=== PATIENT | female | born 1985 | race Caucasian/White ===

== ENCOUNTER → 2017-10-31 | Outpatient (CLI) | payer OTHER ==
[2017-10-29 15:16] VITALS: BMI 25.9
[2017-10-31 14:25] VITALS: BP 108/83; PULSE 101; RESP 18
--- NOTE | 2017-10-31 14:56 | P.HPIM ---
History of Present Illness H&P Date: 10/31/17 Chief Complaint: severe chronic neck, back, shoulder, hip pain This is a 32-year-old patient referred by Dr. Early for chronic pain "all over", worst in neck, back, and several joints. Patient has been taking medications from primary care physician including Tylenol #3 medications with some relief. Patient is tearful in the office today in describing her pain. She states that she has been diagnosed with depression and fibromyalgia in the past. Patient denies adverse drug effects from medications. Patient also denies new-onset weakness, bowel/bladder incontinence, or any other signs or symptoms of cauda equina syndrome. There are no signs of acute intoxication, and no indications of medication diversion or overuse. Patient notes that pain worsens significantly with any kind of physical activity and improves with medication. Patient has used several types of medications for pain, including NSAIDS, OPIOIDS, TRAMADOL, ANTIDEPRESSANTS. Patient HAS NOT had surgery. Patient HAS had injections previously without any relief. Patient HAS NOT had physical therapy recently. Patient states that she sees a pain psychologist on a weekly basis. In addition to above, 13-point review of systems is also negative for chest pain , shortness of breath, changes in vision, changes in hearing, new onset weakness , abdominal pain, diarrhea, extreme fatigue, malaise, fever, skin changes, homicidal or suicidal ideation, or bowel or bladder incontinence. Vital Signs: Reviewed in EMR Gen: WDWN, AAOx3, in acute distress and crying HEENT: NCAT, EOMI, hearing grossly normal Pulm: resp unlabored Neck: supple, trachea midline Remainder of exam not performed, patient crying Past Medical History Past Medical History: Fibromyalgia, Seizure Disorder Additional Past Medical History / Comment(s): LAST SEIZURE 10/29/17, USUALLY HAS DAILY SEIZURES, CHRONIC NECK/BACK PAIN, N/T FINGERS AND TOES, RAYNAUDS SYN. MENIERE'S, IBS, MUSCLE WEAKNESS, USES WALKER OR W/C History of Any Multi-Drug Resistant Organisms: None Reported Past Surgical History: Bariatric Surgery, Cholecystectomy, Hysterectomy Additional Past Surgical History / Comment(s): EYE SX (MUSCLES) Past Anesthesia/Blood Transfusion Reactions: No Reported Reaction Past Psychological History: Anxiety Smoking Status: Current every day smoker Past Alcohol Use History: None Reported Additional Past Alcohol Use History / Comment(s): SMOKED FOR 10 YRS, THEN QUIT FOR 9 YRS, STARTED BACK SMOKING THIS PAST YEAR, SMOKES 1/2 PPD Past Drug Use History: None Reported - Past Family History Mother Family Medical History: Cancer Additional Family Medical History / Comment(s): TONGUE Medications and Allergies Home Medications Medication Instructions Recorded Confirmed Type DULoxetine HCL [Cymbalta] 60 mg PO BID 10/29/17 10/29/17 History Gabapentin 1,200 mg PO TID 10/29/17 History Linaclotide [Linzess] 290 mcg PO DAILY 10/29/17 10/29/17 History Metoclopramide [Reglan] 5 mg PO QID 10/29/17 10/29/17 History OXcarbazepine [Trileptal] 300 mg PO QID 10/29/17 10/29/17 History Ranitidine HCl [Zantac] 300 mg PO BID 10/29/17 10/29/17 History clonazePAM [KlonoPIN] 0.5 mg PO TID 10/29/17 10/29/17 History hydrOXYzine HCL [Atarax] 50 mg PO TID PRN 10/29/17 10/29/17 History Allergies Allergy/AdvReac Type Severity Reaction Status Date / Time levetiracetam [From [facility]] Allergy Rash/Hives Verified 10/29/17 14:58 Penicillins Allergy "STOPPED Verified 10/29/17 14:58 BREATHING" NSAIDS (Non-Steroidal AdvReac "MAY CAUSE Verified 10/29/17 14:58 Anti-Inflamma ULCERS R/T BARIATRIC SX" Physical Exam Vitals: Vital Signs Pulse Resp BP Pulse Ox 10/31/17 14:12 101 H 18 108/83 97 Results Comments: Computed tomography scan of the cervical spine demonstrates some reversal cervical lordosis that may be due to spasm. Scan is otherwise negative. Assessment and Plan (1) Major depression Current Visit: Yes Status: Acute Code(s): F32.9 - MAJOR DEPRESSIVE DISORDER , SINGLE EPISODE, UNSPECIFIED SNOMED Code(s): 677279435 (2) Fibromyalgia Current Visit: Yes Status: Acute Code(s): M79.7 - FIBROMYALGIA SNOMED Code (s): 761114108 (3) Chronic pain syndrome Current Visit: Yes Status: Acute Code(s): G89.4 - CHRONIC PAIN SYNDROME SNOMED Code(s): 765016179 Plan: Plan: 1. Explanation: Opioid and psychological risk scores were reviewed. Diagnoses , prognoses, and multiple treatment options including but not limited to physical therapy, interventional therapies, adjuvant medical therapies, narcotic medication therapies, and surgery were discussed with the patient and all questions were answered to the patient's satisfaction. 2. Opioid agreement: no opioids prescribed today 3. Counseling: The patient was counseled extensively on SMOKING CESSATION, BODY MASS INDEX, EXERCISE. Specifically, the patient was instructed regarding the importance of smoking cessation, weight control, and exercise in the context of both chronic pain and overall health. 4. Procedures: none for now 5. Consultations: none 6. Investigations: none 7. Medications: none prescribed 8. Morphine equivalents per day prescribed: zero 9. Disposition: I reviewed this patient's scans and the notes from Dr. Early. This patient appears to have some components of fibromyalgia, which actually worsens overall with opioid therapy. Given her young age and her obvious psychiatric comorbidities, I believe that she will not benefit substantially from this therapy. I recommended that she see a dedicated pain psychologist and psychiatrist for treatment of her depressive symptoms, as injections have also not substantially helped her in the past and I am very concerned for the prospect of opioid use disorder in the future given these psychiatric comorbidities. Patient will follow up in our clinic as needed. Time with Patient: Greater than 30
== END | disposition home or self-care (01) ==
LOC: PNWHC3 14:04
PROVIDERS: ATTEND Anesthesiology
DX: G89.4 Chronic pain syndrome (principal); M54.2 Cervicalgia; M79.7 Fibromyalgia; M54.9 Dorsalgia, unspecified; F32.9 Major depressive disorder, single episode, unspecified; G40.909 Epilepsy, unspecified, not intractable, without status epilepticus; I73.00 Raynaud's syndrome without gangrene; M62.81 Muscle weakness (generalized); F17.200 Nicotine dependence, unspecified, uncomplicated; K58.9 Irritable bowel syndrome, unspecified; F41.9 Anxiety disorder, unspecified; Z79.891 Long term (current) use of opiate analgesic; Z79.1 Long term (current) use of non-steroidal anti-inflammatories (NSAID); Z79.899 Other long term (current) drug therapy; Z90.49 Acquired absence of other specified parts of digestive tract; Z98.84 Bariatric surgery status; Z88.0 Allergy status to penicillin; Z88.8 Allergy status to other drugs, medicaments and biological substances
CPT/HCPCS: 99201

== ENCOUNTER 2017-12-25 14:52 | Inpatient (IN) | payer OTHER ==
[2017-12-25] MEDS ORDERED: LORazepam 2 MG/ML INJ IV PRN ×4 (19:32)
[2017-12-25 20:25] LABS: Anisocytosis Slight; Basophils % (A) 1 %; Eosinophils # (A) 0.1 k/uL (0-0.7); Eosinophils % (A) 1 %; HCT 36.5 % (34.0-46.0); HGB 11.2 gm/dL (11.4-16.0); Hypochromasia Slight; Lymphocytes # (A) 1.9 k/uL (1.0-4.8); Lymphocytes % (A) 29 %; MCH 24.5 pg (25.0-35.0); MCHC 30.6 g/dL (31.0-37.0); MCV 80.2 fL (80.0-100.0); Mean Platelet Volume 6.3; Microcytosis Slight; Monocytes # (A) 0.5 k/uL (0-1.0); Monocytes % (A) 7 %; Neutrophils % (A) 61 %; Platelet Count 459 k/uL (150-450); RBC 4.55 m/uL (3.80-5.40); RDW 17.2 % (11.5-15.5); WBC 6.5 k/uL (3.8-10.6)
[2017-12-25 20:35] LABS: Anion Gap 11 mmol/L; Blood Urea Nitrogen 5 mg/dL (7-17); Calcium 9.9 mg/dL (8.4-10.2); Carbon Dioxide 26 mmol/L (22-30); Chloride 104 mmol/L (98-107); Glucose 92 mg/dL (74-99); Magnesium 1.9 mg/dL (1.6-2.3); Potassium 4.3 mmol/L (3.5-5.1); Sodium 141 mmol/L (137-145)
[2017-12-25 20:42] VITALS: BP 115/67; PULSE 64; RESP 15; TEMP 97.9
[2017-12-25] MEDS ORDERED: DULoxetine HCL 60 MG CAPSULE.DR PO SCH (21:00)
[2017-12-25] MEDS ORDERED: busPIRone HCl 10 MG TAB PO SCH (21:00)
--- NOTE | 2017-12-25 21:32 | P.CNNES ---
History of Present Illness Consult date: 12/25/17 Reason for Consult: Patient transferred for aphasia and seizure disorder. History of Present Illness: This patient is a 32-year-old right-handed white female who apparently at 1 PM yesterday afternoon had a seizure-like event at home. History was obtained from the who was at bedside today and had witnessed the event yesterday. Since the seizure-like event the patient has been globally aphasic. The patient has never had this kind of episode previously. She has been evaluated at the local [facility] at least 3 times in the past 1 month for history of seizures. Apparently she has had a long-standing history of seizure disorder for over 10 years. She has been on multiple anticonvulsant medications. According to her she is currently taking Trileptal 300 mg 4 times a day, Vimpat 100 mg every morning, and Klonopin 0.5 mg 3 times a day as her primary anticonvulsant medications. She has been seen by multiple neurologists over the last several years. Her most current neurologist is Dr. Amari Ribera who they follow with closely at [facility]. According to the they were last seen there and it was felt she may require further evaluation at the [facility] in the neurology Department. They have been working on trying to get an appointment there for her to be seen. She has had multiple breakthrough seizures despite her current anticonvulsant medications. The states that the most recent addition to her anticonvulsant regimen has been the Vimpat which she is taking 100 mg daily currently. According to the the last tonic-clonic seizure occurred about a week ago. She has been having frequent breakthrough seizures. She was talking up until 1 PM yesterday and since that episode she has remained globally aphasic. She was taken to [facility] today and since she has undergone 3 recent CAT scans of the brain all of which are reported negative for any acute findings it was decided by the ER physician to avoid repeat radiation exposure. The patient and it was recommended she be transferred to [facility] for MRI study. Dr. Blanca Schafer was contacted this evening at 9 PM on 12/25/2017 for immediate urgent consult on this patient. According to nursing staff the patient has been globally aphasic since coming into the hospital here and he has not had any witnessed seizure activity. We have reviewed her history and at this time she would be best suited to be transferred to a tertiary center with an epilepsy monitoring unit available for her further evaluation. We have recommended a stat MRI of the brain to be done today however after contacting MRI Center they informed us that the earliest sleep MRI could be done as tomorrow morning at 8 AM. We will put in a request for this MRI to be done for her for further evaluation of her acute aphasic event. The patient does seem to follow some simple commands. She is able to comprehend spoken language but has no verbal output. It is possible she may have had some form of active seizure producing this type of aphasia. Once again we are recommending that she should be considered for transfer to a tertiary center with a capacity of having epilepsy monitoring to be done for this patient as soon as possible. We will have the patient continue on her current anticonvulsant medications. She may be given Ativan for any breakthrough seizures. We have discussed the case in detail today with Dr. June's nurse practitioner who was going to make arrangements for this patient possibly tonight or tomorrow to be transferred to the epilepsy monitoring unit at [facility] further further expert opinion in this very complicated case. We have discussed all of these findings in detail today with the who is at bedside. We will obtain a MRI of possible for further evaluation to rule out any possibility of acute left hemispheric stroke. Her neurological exam does not show any evidence of right-sided weakness however and she has no focal weakness on examination. Her deep tendon reflexes are symmetric with no Babinski response elicited. We will continue to follow this patient's progress closely and she will require neuro checks every 2 hours throughout the night. As noted case was discussed at length today with the nurse practitioner for Dr. June and they are aware of our current recommendations. Her overall prognosis at this time remains very guarded. We' ve discussed all of these findings in detail today with the patient's who is at bedside. All of his questions were answered to the best of our ability. He is aware of our current recommendations and treatment plan. As noted her overall prognosis at this time remains very guarded. Review of Systems Constitutional: Denies chills, Denies fever Eyes: denies blurred vision, denies pain Ears, nose, mouth and throat: Denies headache, Denies sore throat Cardiovascular: Denies chest pain, Denies shortness of breath Respiratory: Denies cough Gastrointestinal: Denies abdominal pain, Denies diarrhea, Denies nausea, Denies vomiting Genitourinary: Denies dysuria, Denies hematuria Musculoskeletal: Denies myalgias Integumentary: Denies pruritus, Denies rash Neurological: Reports aphasia, Reports change in mentation, Reports change in speech, Reports confusion, Reports convulsions, Reports seizures, Denies numbness, Denies weakness Psychiatric: Denies anxiety, Denies depression Endocrine: Denies fatigue, Denies weight change Past Medical History Past Medical History: Fibromyalgia, GERD/Reflux, Seizure Disorder Additional Past Medical History / Comment(s): LAST SEIZURE 12/25/17,has eaizures almost daily basis one or more a day, cHRONIC NECK/BACK PAIN, N/T FINGERS AND TOES, RAYNAUDS SYN. MENIERE'S,tinnitus, past uterine prolpase(sx) IBS, MUSCLE WEAKNESS, USES WALKER OR W/C History of Any Multi-Drug Resistant Organisms: None Reported Past Surgical History: Bariatric Surgery, Cholecystectomy, Hysterectomy Additional Past Surgical History / Comment(s): EYE SX (MUSCLES), radha en y 2012 Past Anesthesia/Blood Transfusion Reactions: No Reported Reaction Additional Past Anesthesia/Blood Transfusion Reaction / Comment(s): clausterphobia Smoking Status: Current every day smoker - Past Family History Mother Family Medical History: Cancer Additional Family Medical History / Comment(s): TONGUE Father Family Medical History: Hypertension Medications and Allergies Home Medications Medication Instructions Recorded Confirmed Type DULoxetine HCL [Cymbalta] 60 mg PO BID 10/29/17 12/25/17 History Linaclotide [Linzess] 290 mcg PO DAILY 10/29/17 12/25/17 History Metoclopramide [Reglan] 5 mg PO QID 10/29/17 12/25/17 History OXcarbazepine [Trileptal] 300 mg PO QID 10/29/17 12/25/17 History Ranitidine HCl [Zantac] 300 mg PO BID 10/29/17 12/25/17 History clonazePAM [KlonoPIN] 0.5 mg PO TID 10/29/17 12/25/17 History hydrOXYzine HCL [Atarax] 50 mg PO TID PRN 10/29/17 12/25/17 History Albuterol Inhaler [Ventolin Hfa 2 puff INHALATION RT-Q4H PRN 12/25/17 12/25/17 History Inhaler] Ferrous Sulfate [Feosol] 325 mg PO BID 12/25/17 12/25/17 History Gabapentin [Neurontin] 1,200 mg PO TID 12/25/17 12/25/17 History Lacosamide [Vimpat] 100 mg PO DAILY 12/25/17 12/25/17 History Lidocaine 5% Patch [Lidoderm] 1 patch TOPICAL DAILY 12/25/17 12/25/17 History Magnesium 200 mg PO DAILY 12/25/17 12/25/17 History amLODIPine [Norvasc] 2.5 mg PO DAILY 12/25/17 12/25/17 History busPIRone HCl [Buspar] 10 mg PO BID 12/25/17 12/25/17 History Allergies Allergy/AdvReac Type Severity Reaction Status Date / Time levetiracetam [From [facility]] Allergy Rash/Hives Verified 12/25/17 18:29 Penicillins Allergy "STOPPED Verified 12/25/17 18:29 BREATHING" NSAIDS (Non-Steroidal AdvReac "MAY CAUSE Verified 12/25/17 18:29 Anti-Inflamma ULCERS R/T BARIATRIC SX" Physical Examination - Vital Signs Vital Signs: Vital Signs Temp Pulse Resp BP Pulse Ox 12/25/17 20:41 97.9 F 64 15 115/67 97 12/25/17 18:28 60 Intake and Output 12/25/17 12/25/17 12/25/17 06:59 14:59 22:59 Other: Voiding Method Diaper Incontinent Weight 0 g - Constitutional General appearance: average body habitus, cooperative - EENT EENT: PERRL, mucous membranes moist - Respiratory Respiratory: lungs clear, normal breath sounds - Cardiovascular Cardiovascular: regular rate, normal S1, normal S2 Extremities: no peripheral edema bilaterally - Gastrointestinal Gastrointestinal: normoactive bowel sounds - Integumentary Integumentary: normal - Neurologic Cranial nerve examination: PERRL, EOMI, VFF, V1/V2/V3 grossly intact, face symmetric, tongue midline, intact gag reflex, intact vestibulo-ocular reflex, normal palatal elevation Speech examination: intact Sensorimotor examination: intact Motor examination - right side: 4/5: biceps, triceps, wrist flexion, wrist extension, greens keeper, hip flexors, knee extensors, dorsiflexion, toe extension (EHL) , plantarflexion Motor examination - left side: 4/5: biceps, triceps, wrist flexion, wrist extension, greens keeper, hip flexors, knee extensors, dorsiflexion, toe extension (EHL) , plantarflexion Detailed sensory examination: intact Reflex and gait examination: intact Reflexes: 1+: ankle, bicep, knee, tricep - Musculoskeletal Musculoskeletal: no pain - Psychiatric Psychiatric: mood/affect appropriate, cooperative Results - Laboratory Findings CBC and BMP: 12/25/17 19:49 12/25/17 19:49 Abnormal Lab Findings: Abnormal Labs 12/25/17 12/25/17 19:49 19:49 Hgb 11.2 L MCH 24.5 L MCHC 30.6 L RDW 17.2 H Plt Count 459 H BUN 5 L Assessment and Plan (1) Complex partial epilepsy Current Visit: Yes Status: Acute Code(s): G40.209 - LOCAL-REL SYMPTC EPI W CMPLX PRT SEIZ,NOT NTRCT,W/O STAT EPI SNOMED Code(s): 723865879 (2) Global aphasia Current Visit: Yes Status: Acute Code(s): R47.01 - APHASIA SNOMED Code(s) : 09585634 (3) Chronic pain syndrome Current Visit: No Status: Acute Code(s): G89.4 - CHRONIC PAIN SYNDROME SNOMED Code(s): 783526953 (4) Major depression Current Visit: No Status: Acute Code(s): F32.9 - MAJOR DEPRESSIVE DISORDER, SINGLE EPISODE, UNSPECIFIED SNOMED Code(s): 470285858 Plan: This patient is a 32-year-old right-handed white female who was transferred from [facility] today to [facility] for further neurological evaluation of acute aphasia and seizure disorder. Patient has a history of having recurrent seizures for over 10 years. She has been seen by multiple neurologists over the years. Her most current neurologist is Dr. Amari Ribera who is following her recently for her seizure disorder. He has recommended she be seen at the [facility] in the epilepsy clinic. She has had intractable seizures recently and is on multiple anticonvulsant medications. She was taken to [facility] today by her who provided the medical history and was at bedside today to fill in the details. Apparently yesterday afternoon she became globally aphasic at 1 PM and has had no further verbal output since. She has undergone 3 CAT scans of the brain at [facility] in the past 1 month all of which have been reported negative. She was transferred today to [facility] for possible MRI of the brain. We did contact the MRI Center this evening at 9: 30 PM however they state there is no technologist available to do the MRI tonight. Apparently she has a ticket for MRI of the brain to be done possibly at 8 AM tomorrow morning. We will of obtain the MRI as soon as possible. We have restarted her on all 3 of her current anticonvulsant medications. We have discussed the case at length with Dr. June nurse practitioner in detail this evening regarding this patient's clinical exam findings and need for further evaluation at a tertiary center for epilepsy monitoring. She is in full agreement and we will try to make arrangements to have this patient transferred to [facility] epilepsy monitoring unit for further workup and management of her complicated history and intractable epilepsy. This patient's case was discussed at length with the patient's who is at bedside. All of his questions were answered to the best of our ability. He is aware of our current recommendations and treatment plan. Her overall prognosis at this time remains very guarded. We will plan to keep her on neuro checks every 2 hours with seizure precautions until further arrangements are made tomorrow for possible transfer to the epilepsy monitoring unit at [facility]. We will continue to follow the patient closely during this admission. Her overall prognosis at this time remains very guarded. Time with Patient: Greater than 30
[2017-12-25] MEDS ORDERED: SODIUM CHLORIDE 0.9% 1,000 ML IV SCH ×2 (21:45→22:30)
[2017-12-25] MEDS ORDERED: GABAPENTIN 300 MG CAP PO SCH (22:00)
[2017-12-25] MEDS ORDERED: OXcarbazepine 300 MG TAB PO SCH (22:00)
[2017-12-25] MEDS ORDERED: clonazePAM 0.5 MG TAB PO SCH (22:00)
--- NOTE | 2017-12-25 22:30 | P.HPIM ---
History of Present Illness H&P Date: 12/25/17 Chief Complaint: Altered mental status Patient is a 30-year-old female with a known history of seizure disorder, fibromyalgia, major depression initially presented to [facility] yesterday with a seizure-like activity at home. Patient is globally aphasic otherwise patient does not have any tonic-clonic activity. Patient was evaluated by neurology at [facility] about 3 times in the past 1 month for seizures. She is on 3 on antiplatelet medications including Trileptal Vimpat and Klonopin. She presented to [facility] S and 18 and she was having staring episodes and completely aphasic but otherwise hemodynamically stable. CT of head showed no acute process. Patient was seen by neurology and recommended transfer to tertiary care facility for continuous EEG monitoring Deepti assisted. Otherwise patient does not have any no focal weakness. Hemodynamically stable. Patient's has been bedside and otherwise patient cannot provide any history. Patient does not have any fever or chills. No chest pain or shortness of breath. No nausea vomiting or diarrhea. Laboratory data and remaining studies from [facility] were reviewed. Complete review of systems could not be apparent from the patient. Review of Systems Complete review of systems could not be apparent from the patient Past Medical History Past Medical History: Fibromyalgia, GERD/Reflux, Seizure Disorder Additional Past Medical History / Comment(s): LAST SEIZURE 12/25/17,has eaizures almost daily basis one or more a day, cHRONIC NECK/BACK PAIN, N/T FINGERS AND TOES, RAYNAUDS SYN. MENIERE'S,tinnitus, past uterine prolpase(sx) IBS, MUSCLE WEAKNESS, USES WALKER OR W/C History of Any Multi-Drug Resistant Organisms: None Reported Past Surgical History: Bariatric Surgery, Cholecystectomy, Hysterectomy Additional Past Surgical History / Comment(s): EYE SX (MUSCLES), radha en y 2012 Past Anesthesia/Blood Transfusion Reactions: No Reported Reaction Additional Past Anesthesia/Blood Transfusion Reaction / Comment(s): clausterphobia Smoking Status: Current every day smoker - Past Family History Mother Family Medical History: Cancer Additional Family Medical History / Comment(s): TONGUE Father Family Medical History: Hypertension Medications and Allergies Home Medications Medication Instructions Recorded Confirmed Type DULoxetine HCL [Cymbalta] 60 mg PO BID 10/29/17 12/25/17 History Linaclotide [Linzess] 290 mcg PO DAILY 10/29/17 12/25/17 History Metoclopramide [Reglan] 5 mg PO QID 10/29/17 12/25/17 History OXcarbazepine [Trileptal] 300 mg PO QID 10/29/17 12/25/17 History Ranitidine HCl [Zantac] 300 mg PO BID 10/29/17 12/25/17 History clonazePAM [KlonoPIN] 0.5 mg PO TID 10/29/17 12/25/17 History hydrOXYzine HCL [Atarax] 50 mg PO TID PRN 10/29/17 12/25/17 History Albuterol Inhaler [Ventolin Hfa 2 puff INHALATION RT-Q4H PRN 12/25/17 12/25/17 History Inhaler] Ferrous Sulfate [Feosol] 325 mg PO BID 12/25/17 12/25/17 History Gabapentin [Neurontin] 1,200 mg PO TID 12/25/17 12/25/17 History Lacosamide [Vimpat] 100 mg PO DAILY 12/25/17 12/25/17 History Lidocaine 5% Patch [Lidoderm] 1 patch TOPICAL DAILY 12/25/17 12/25/17 History Magnesium 200 mg PO DAILY 12/25/17 12/25/17 History amLODIPine [Norvasc] 2.5 mg PO DAILY 12/25/17 12/25/17 History busPIRone HCl [Buspar] 10 mg PO BID 12/25/17 12/25/17 History Allergies Allergy/AdvReac Type Severity Reaction Status Date / Time levetiracetam [From [facility]] Allergy Rash/Hives Verified 12/25/17 18:29 Penicillins Allergy "STOPPED Verified 12/25/17 18:29 BREATHING" NSAIDS (Non-Steroidal AdvReac "MAY CAUSE Verified 12/25/17 18:29 Anti-Inflamma ULCERS R/T BARIATRIC SX" Physical Exam Vitals: Vital Signs Temp Pulse Resp BP Pulse Ox 12/25/17 20:41 97.9 F 64 15 115/67 97 12/25/17 18:28 60 Intake and Output 12/25/17 12/25/17 12/25/17 06:59 14:59 22:59 Other: Voiding Method Diaper Incontinent Weight 0 g PHYSICAL EXAMINATION: Patient is lying in the bed comfortably, no acute distress, awake alert and cannot provide any history.. HEENT: Normocephalic. Neck is supple. Pupils reactive. Nostrils clear. Oral cavity is moist. Ears reveal no drainage. Neck reveals no JVD, carotid bruits, or thyromegaly. CHEST EXAMINATION: Trachea is central. Symmetrical expansion. Lung massey clear to auscultation and percussion. CARDIAC: Normal S1, S2 with no gallops. No murmurs ABDOMEN: Soft. Bowel sounds normal. No organomegaly. No abdominal bruits. Extremities: reveal no edema. No clubbing or cyanosis Neurologically awake, alert, oriented with well-coordinated movements. No focal deficits noted Skin: No rash or skin lesions. Psychiatric: Coperative. Could not be assessed completely Musculoskeletal: No joint swelling or deformity. Normal range of motion. Results CBC & Chem 7: 12/25/17 19:49 12/25/17 19:49 Labs: Abnormal Lab Results - Last 24 Hours (Table) 12/25/17 12/25/17 Range/Units 19:49 19:49 Hgb 11.2 L (11.4-16.0) gm/dL MCH 24.5 L (25.0-35.0) pg MCHC 30.6 L (31.0-37.0) g/dL RDW 17.2 H (11.5-15.5) % Plt Count 459 H (150-450) k/uL BUN 5 L (7-17) mg/dL Thrombosis Risk Factor Assmnt - Choose All That Apply Each Factor Represents 1 point: Hx of IBD Other Risk Factors: No Thrombosis Risk Factor Assessment Total Risk Factor Score: 1 Thrombosis Risk Factor Assessment Level: Low Risk Assessment and Plan Assessment: Complex seizures with global aphasia Seizure disorder Fibromyalgia GERD Anxiety and major depression Plan: Patient will be continued on IV Ativan when necessary for seizures. Continue the home antiepileptic medications. Neurology was consulted and recommended to transfer the patient to tertiary care facility for continuous EEG monitoring. Time with Patient: Greater than 30
[2017-12-26] MEDS ORDERED: LACOSAMIDE 50 MG TABLET PO SCH (09:00)
[2017-12-26] MEDS ORDERED: MAGNESIUM OXIDE 400 MG TAB PO SCH (09:00)
[2017-12-26] MEDS ORDERED: amLODIPine 2.5 MG TAB PO SCH (09:00)
--- NOTE | 2017-12-28 23:55 | P.DS ---
Providers Date of admission: 12/25/17 16:59 Expected date of discharge: 12/25/17 Attending physician: Jennie June Consults: 12/25/17 19:24 Consult Physician Urgent Consulting Provider: Violet Schafer Consult Reason/Comments: seizures. ams. Do you want consulting provider notified?: Yes Primary care physician: [facility] Course: Please see my H&P for full details. Complex seizures with global aphasia Seizure disorder Fibromyalgia GERD Anxiety and major depression Patient was continued on IV Ativan when necessary for seizures. Continued the home antiepileptic medications. Neurology was consulted and recommended to transfer the patient to tertiary care facility for continuous EEG monitoring. I did discuss with [facility] transfer team and neurology on-call. Patient was accepted at [facility] and will be transferred once bed is available. Patient Condition at Discharge: Fair Plan - Discharge Summary Discharge Rx Participant: Yes New Discharge Prescriptions: No Action hydrOXYzine HCL [Atarax] 50 mg PO TID PRN PRN Reason: anxiety/insomnia clonazePAM [KlonoPIN] 0.5 mg PO TID DULoxetine HCL [Cymbalta] 60 mg PO BID Ranitidine HCl [Zantac] 300 mg PO BID OXcarbazepine [Trileptal] 300 mg PO QID Metoclopramide [Reglan] 5 mg PO QID Linaclotide [Linzess] 290 mcg PO DAILY amLODIPine [Norvasc] 2.5 mg PO DAILY Lidocaine 5% Patch [Lidoderm] 1 patch TOPICAL DAILY busPIRone HCl [Buspar] 10 mg PO BID Ferrous Sulfate [Feosol] 325 mg PO BID Albuterol Inhaler [Ventolin Hfa Inhaler] 2 puff INHALATION RT-Q4H PRN PRN Reason: Shortness Of Breath Gabapentin [Neurontin] 1,200 mg PO TID Magnesium 200 mg PO DAILY Lacosamide [Vimpat] 100 mg PO DAILY Discharge Medication List DULoxetine HCL [Cymbalta] 60 mg PO BID 10/29/17 [History] Linaclotide [Linzess] 290 mcg PO DAILY 10/29/17 [History] Metoclopramide [Reglan] 5 mg PO QID 10/29/17 [History] OXcarbazepine [Trileptal] 300 mg PO QID 10/29/17 [History] Ranitidine HCl [Zantac] 300 mg PO BID 10/29/17 [History] clonazePAM [KlonoPIN] 0.5 mg PO TID 10/29/17 [History] hydrOXYzine HCL [Atarax] 50 mg PO TID PRN 10/29/17 [History] Albuterol Inhaler [Ventolin Hfa Inhaler] 2 puff INHALATION RT-Q4H PRN 12/25/17 [ History] Ferrous Sulfate [Feosol] 325 mg PO BID 12/25/17 [History] Gabapentin [Neurontin] 1,200 mg PO TID 12/25/17 [History] Lacosamide [Vimpat] 100 mg PO DAILY 12/25/17 [History] Lidocaine 5% Patch [Lidoderm] 1 patch TOPICAL DAILY 12/25/17 [History] Magnesium 200 mg PO DAILY 12/25/17 [History] amLODIPine [Norvasc] 2.5 mg PO DAILY 12/25/17 [History] busPIRone HCl [Buspar] 10 mg PO BID 12/25/17 [History] Discharge Disposition: DISCH/TRANS TO A [facility] [place]
== END 2017-12-25 23:40 | disposition short-term general hospital (02) | DRG 101 ==
LOC: 5MS5E 16:59
PROVIDERS: ADMIT Internal Medicine; ATTEND Internal Medicine
DX: G40.209 Localization-related (focal) (partial) symptomatic epilepsy and epileptic syndromes with complex partial seizures, not intractable, without status epilepticus (principal); R47.01 Aphasia; F17.200 Nicotine dependence, unspecified, uncomplicated; F32.9 Major depressive disorder, single episode, unspecified; F41.9 Anxiety disorder, unspecified; G89.4 Chronic pain syndrome; I73.00 Raynaud's syndrome without gangrene; K21.9 Gastro-esophageal reflux disease without esophagitis; K58.9 Irritable bowel syndrome, unspecified; M79.7 Fibromyalgia; Z82.49 Family history of ischemic heart disease and other diseases of the circulatory system; Z90.710 Acquired absence of both cervix and uterus; Z98.84 Bariatric surgery status; Z88.6 Allergy status to analgesic agent; Z88.0 Allergy status to penicillin; Z88.8 Allergy status to other drugs, medicaments and biological substances; Z79.899 Other long term (current) drug therapy; H81.09 Meniere's disease, unspecified ear; F40.240 Claustrophobia; M62.81 Muscle weakness (generalized); H93.19 Tinnitus, unspecified ear; Z80.8 Family history of malignant neoplasm of other organs or systems
CPT/HCPCS: 80048; 80183; 83735; 85025

== ENCOUNTER 2018-01-12 15:56 | Emergency (ER) | payer OTHER ==
[2018-01-12 16:09] VITALS: RESP 20; TEMP 98
--- NOTE | 2018-01-12 17:37 | ED ---
General Adult HPI - General Chief complaint: Wound/Laceration Stated complaint: Sores on feet Time Seen by Provider: 01/12/18 17:00 Source: patient, RN notes reviewed Mode of arrival: ambulatory Limitations: physical limitation - History of Present Illness Initial comments: 32-year-old female presents to the emergency department for a chief complaint of multiple sores on the bilateral feet x 2 weeks. Patient states that she obtained the wounds 2 weeks ago when she fell in the [employer] parking lot after a seizure. Patient states that the seizures are being managed at the [facility] and are under control. Patient states she has always had problems with sores on her feet. Patient denies a history of diabetes. Patient denies any fevers or chills at home. Patient states she has been continuing to walk on her feet barefoot. Patient denies any drainage from the feet bilaterally. She states she has been trying to apply hydrogen peroxide to the wounds but it has not been helping. Patient denies any substance abuse and states she stopped smoking cigarettes 3 weeks ago. Patient has no other complaints at this time including shortness of breath, chest pain, abdominal pain, nausea or vomiting, headache, or visual changes. - Related Data Home Medications Medication Instructions Recorded Confirmed DULoxetine HCL [Cymbalta] 60 mg PO BID 10/29/17 12/25/17 Linaclotide [Linzess] 290 mcg PO DAILY 10/29/17 12/25/17 Metoclopramide [Reglan] 5 mg PO QID 10/29/17 12/25/17 OXcarbazepine [Trileptal] 300 mg PO QID 10/29/17 12/25/17 Ranitidine HCl [Zantac] 300 mg PO BID 10/29/17 12/25/17 clonazePAM [KlonoPIN] 0.5 mg PO TID 10/29/17 12/25/17 hydrOXYzine HCL [Atarax] 50 mg PO TID PRN 10/29/17 12/25/17 Albuterol Inhaler [Ventolin Hfa 2 puff INHALATION RT-Q4H PRN 12/25/17 12/25/17 Inhaler] Ferrous Sulfate [Feosol] 325 mg PO BID 12/25/17 12/25/17 Gabapentin [Neurontin] 1,200 mg PO TID 12/25/17 12/25/17 Lacosamide [Vimpat] 100 mg PO DAILY 12/25/17 12/25/17 Lidocaine 5% Patch [Lidoderm] 1 patch TOPICAL DAILY 12/25/17 12/25/17 Magnesium 200 mg PO DAILY 12/25/17 12/25/17 amLODIPine [Norvasc] 2.5 mg PO DAILY 12/25/17 12/25/17 busPIRone HCl [Buspar] 10 mg PO BID 12/25/17 12/25/17 Previous Rx's Medication Instructions Recorded Sulfamethox-Tmp 800-160Mg [Bactrim 2 tab PO Q12HR 10 Days #40 tab 01/12/18 DS 800-160 mg] Allergies Allergy/AdvReac Type Severity Reaction Status Date / Time levetiracetam [From [facility]] Allergy Rash/Hives Verified 01/12/18 16:09 Penicillins Allergy "STOPPED Verified 01/12/18 16:09 BREATHING" NSAIDS (Non-Steroidal AdvReac "MAY CAUSE Verified 01/12/18 16:09 Anti-Inflamma ULCERS R/T BARIATRIC SX" Review of Systems ROS Statement: Those systems with pertinent positive or pertinent negative responses have been documented in the HPI. ROS Other: All systems not noted in ROS Statement are negative. Past Medical History Past Medical History: Fibromyalgia, GERD/Reflux, Seizure Disorder Additional Past Medical History / Comment(s): LAST SEIZURE 12/25/17,has eaizures almost daily basis one or more a day, cHRONIC NECK/BACK PAIN, N/T FINGERS AND TOES, RAYNAUDS SYN. MENIERE'S,tinnitus, past uterine prolpase(sx) IBS, MUSCLE WEAKNESS, USES WALKER OR W/C History of Any Multi-Drug Resistant Organisms: None Reported Past Surgical History: Bariatric Surgery, Cholecystectomy, Hysterectomy Additional Past Surgical History / Comment(s): EYE SX (MUSCLES), radha en y 2012 Past Anesthesia/Blood Transfusion Reactions: No Reported Reaction Additional Past Anesthesia/Blood Transfusion Reaction / Comment(s): clausterphobia Past Psychological History: Anxiety Smoking Status: Former smoker Past Alcohol Use History: None Reported Past Drug Use History: None Reported - Past Family History Mother Family Medical History: Cancer Additional Family Medical History / Comment(s): TONGUE Father Family Medical History: Hypertension General Exam Limitations: physical limitation General appearance: alert, in no apparent distress Head exam: Present: atraumatic, normocephalic, normal inspection Eye exam: Present: normal appearance, PERRL, EOMI. Absent: scleral icterus, conjunctival injection, periorbital swelling ENT exam: Present: normal exam, normal oropharynx, mucous membranes moist, TM's normal bilaterally, normal external ear exam Neck exam: Present: normal inspection, full ROM. Absent: tenderness, meningismus, lymphadenopathy Respiratory exam: Present: normal lung sounds bilaterally. Absent: respiratory distress, wheezes, rales, rhonchi, stridor Cardiovascular Exam: Present: regular rate, normal rhythm, normal heart sounds. Absent: systolic murmur, diastolic murmur, rubs, gallop, clicks GI/Abdominal exam: Present: soft, normal bowel sounds. Absent: distended, tenderness, guarding, rebound, rigid Extremities exam: Present: full ROM (Full range of motion of bilateral ankles, feet, and digits), tenderness (Mild tenderness to the source), normal capillary refill (Capillary refill less than 2 seconds. PD and PT pulse is strong Doppler bilaterally. ), pedal edema (Patient has 1+ nonpitting edema of the lower extremities), other (patient has multiple chronic wounds on the feet bilaterally. Right foot: patient has a 1 cm x 1 cm wound on the plantar 5th MTP head that is slightly deeper than the other multiple wounds on dorsal right foot. There is a 3cm x 2 cm would on the lateral left heel with multiple other < 1 cm sores on dorsal left foot. Some mild erythema surrounding the sores, non tender to touch, slightly warmer to touch. Wounds appear to be chronic in nature.). Absent: calf tenderness (No tenderness in the calves, negative Homans sign, no swelling redness or ecchymosis noted bilaterally.) Neurological exam: Present: alert, oriented X3, CN II-XII intact Course Vital Signs 01/12/18 16:07 Temperature 98.0 F Pulse Rate 98 Respiratory 20 Rate Blood Pressure 113/73 O2 Sat by Pulse 99 Oximetry Medical Decision Making - Medical Decision Making 32-year-old female presents to the emergency department for a chief complaint of sores on the bilateral feet 2 weeks. Patient states she had a seizure in the [facility] parking lot 2 weeks ago where she sustained the sores. Seizures being managed by who they see in a few days. No recent seizures. Patient has multiple scabs noted over all extremities. No fevers or chills at home. Patient is ambulating as normal with walker. On exam patient has multiple sores over the bilateral feet. Most notable sores on the left lateral heel and is about 3 cm x 2 cm. Ulcers appear to be chronic in nature. No streaking redness up the leg. There is mild erythema surrounding the sores. No drainage from the sores. There is no acute fracture or dislocatin in either foot. No XR evidence of osteomyelitis. At this time patient can be treated outpatient with Bactrim and chronic wound care. She is aware to return to the emergency Department if she has any fevers, streaking redness or worsening pain or any other worsening symptoms. She will follow up with primary care as well on Sunday. Disposition Clinical Impression: Chronic wound of extremity Disposition: HOME SELF-CARE Condition: Good Instructions: Wound Infection (ED), Chronic Wound Care (ED) Additional Instructions: Please follow up with wound care on Sunday morning [phone]. Please follow- up with primary care on Sunday as well. Take Motrin or Tylenol for pain. Please return to the emergency department if you have any worsening symptoms including fever, streaking redness or increased pain. Prescriptions: Sulfamethox-Tmp 800-160Mg [Bactrim DS 800-160 mg] 2 tab PO Q12HR 10 Days #40 tab Is patient prescribed a controlled substance at d/c from ED?: No Referrals: Yuri Gastelum MD [Primary Care Provider] - 1-2 days Darryl Ramesh MD [STAFF PHYSICIAN] - 1-2 days Time of Disposition: 18:16
--- NOTE | 2018-01-12 17:46 | XR ---
EXAMINATION TYPE: XR foot complete bilateral DATE OF EXAM: 01/12/2018 CLINICAL HISTORY: Open sores on both feet. Feet pain. TECHNIQUE: Frontal, lateral, and oblique images of both feet are obtained. COMPARISON: None FINDINGS: There is no acute fracture/dislocation evident in either foot. The joint spaces in the ri ght and left foot appear within normal limits. The overlying soft tissue appears unremarkable. No pe riosteal reaction or cortical erosion is seen. Small plantar enthesophytes are noted bilaterally. IMPRESSION: There is no acute fracture or dislocation in either foot. No radiographic evidence of os teomyelitis. If there is further concern 3 phase bone scan or MR could be performed.
[2018-01-12 18:40] VITALS: BP 109/65; PULSE 88
== END 2018-01-12 18:36 | disposition home or self-care (01) ==
LOC: EC 15:56
DX: S91.302A Unspecified open wound, left foot, initial encounter (principal); S91.301A Unspecified open wound, right foot, initial encounter; M79.7 Fibromyalgia; K21.9 Gastro-esophageal reflux disease without esophagitis; G40.909 Epilepsy, unspecified, not intractable, without status epilepticus; F41.9 Anxiety disorder, unspecified; Z98.84 Bariatric surgery status; Z79.899 Other long term (current) drug therapy; Z88.0 Allergy status to penicillin; Z88.6 Allergy status to analgesic agent; Z88.8 Allergy status to other drugs, medicaments and biological substances; X58.XXXA Exposure to other specified factors, initial encounter
CPT/HCPCS: 99283

== ENCOUNTER 2019-11-25 10:53 | Inpatient (IN) | payer OTHER ==
[~2019-11-25 10:53] MED LIST: PROPOFOL 10 MG/ML 20 ML VIAL IV ONE; SUCCINYLCHOLINE CHLORIDE VIAL 200 MG/10 ML VIAL IV ONE
[2019-11-25] MEDS ORDERED: SODIUM CHLORIDE 0.9% 1,000 ML IV STA (11:33)
--- NOTE | 2019-11-25 11:33 | ED ---
General Adult HPI - General Chief complaint: Altered Mental Status Stated complaint: Altered Mental Time Seen by Provider: 11/25/19 10:59 Source: RN/MD (Dr. Candelario), EMS, RN notes reviewed Mode of arrival: EMS Limitations: altered mental status, physical limitation - History of Present Illness Initial comments: Patient is a 34-year-old female transferred from [facility] for change in mental status. Patient does not provide any information or attempt verbal pain medication at this time. Patient reportedly has been less responsive for the past several days. Patient was noticed to have fever and diagnosed with urinary tract infection. Blood culture was done and patient was placed on Levaquin. There was concern for dehydration with low CO2 elevated lactic acid. White count was near 16. Head CT and chest x-ray reported as negative. Covid reported as negative. Patient reportedly had an episode similar to this several years ago. Patient also sees a neurologist and has history of seizure disorder. Patient did receive 3 L bolus. - Related Data Home Medications Medication Instructions Recorded Confirmed DULoxetine HCL [Cymbalta] 60 mg PO BID 10/29/17 12/25/17 Linaclotide [Linzess] 290 mcg PO DAILY 10/29/17 12/25/17 Metoclopramide [Reglan] 5 mg PO QID 10/29/17 12/25/17 OXcarbazepine [Trileptal] 300 mg PO QID 10/29/17 12/25/17 Ranitidine HCl [Zantac] 300 mg PO BID 10/29/17 12/25/17 clonazePAM [KlonoPIN] 0.5 mg PO TID 10/29/17 12/25/17 hydrOXYzine HCL [Atarax] 50 mg PO TID PRN 10/29/17 12/25/17 Albuterol Inhaler (Mhu) [Ventolin 2 puff INHALATION RT-Q4H PRN 12/25/17 12/25/17 Hfa Inhaler] Ferrous Sulfate [Feosol] 325 mg PO BID 12/25/17 12/25/17 Gabapentin [Neurontin] 1,200 mg PO TID 12/25/17 12/25/17 Lacosamide [Vimpat] 100 mg PO DAILY 12/25/17 12/25/17 Lidocaine 5% Patch [Lidoderm] 1 patch TOPICAL DAILY 12/25/17 12/25/17 Magnesium 200 mg PO DAILY 12/25/17 12/25/17 amLODIPine [Norvasc] 2.5 mg PO DAILY 12/25/17 12/25/17 busPIRone HCl [Buspar] 10 mg PO BID 12/25/17 12/25/17 Previous Rx's Medication Instructions Recorded Sulfamethox-Tmp 800-160Mg [Bactrim 2 tab PO Q12HR 10 Days #40 tab 01/12/18 DS 800-160 mg] Allergies Allergy/AdvReac Type Severity Reaction Status Date / Time levetiracetam [From [facility]] Allergy Rash/Hives Verified 01/12/18 16:09 Penicillins Allergy "STOPPED Verified 01/12/18 16:09 BREATHING" NSAIDS (Non-Steroidal AdvReac "MAY CAUSE Verified 01/12/18 16:09 Anti-Inflamma ULCERS R/T BARIATRIC SX" Review of Systems ROS Statement: Those systems with pertinent positive or pertinent negative responses have been documented in the HPI. ROS Other: All systems not noted in ROS Statement are negative. Limitations: ROS unobtainable due to patients medical condition Constitutional: Reports: fever Past Medical History Past Medical History: Fibromyalgia, GERD/Reflux, Seizure Disorder Additional Past Medical History / Comment(s): LAST SEIZURE 12/25/17,has eaizures almost daily basis one or more a day, cHRONIC NECK/BACK PAIN, N/T FINGERS AND TOES, RAYNAUDS SYN. MENIERE'S,tinnitus, past uterine prolpase(sx) IBS, MUSCLE WEAKNESS, USES WALKER OR W/C History of Any Multi-Drug Resistant Organisms: None Reported Past Surgical History: Bariatric Surgery, Cholecystectomy, Hysterectomy Additional Past Surgical History / Comment(s): EYE SX (MUSCLES), radha en y 2012 Past Anesthesia/Blood Transfusion Reactions: No Reported Reaction Additional Past Anesthesia/Blood Transfusion Reaction / Comment(s): clausterphobia Past Psychological History: Anxiety Smoking Status: Former smoker Past Alcohol Use History: None Reported Past Drug Use History: None Reported - Past Family History Mother Family Medical History: Cancer Additional Family Medical History / Comment(s): TONGUE Father Family Medical History: Hypertension General Exam Limitations: altered mental status General appearance: lethargic Head exam: Present: normocephalic Eye exam: Present: normal appearance, PERRL ENT exam: Present: mucous membranes dry Neck exam: Present: normal inspection. Absent: meningismus Respiratory exam: Present: normal lung sounds bilaterally Cardiovascular Exam: Present: tachycardia GI/Abdominal exam: Present: soft. Absent: tenderness Extremities exam: Present: other (Foot clubbing) Expanded Neurological exam: Present: protecting the airway Eye Response: (3) open to voice Motor Response: (4) withdraws to pain Verbal Response: incomprehensible sounds Psychiatric exam: Present: flat affect Skin exam: Present: rash Course Vital Signs 11/25/19 10:58 Temperature 98.5 F Pulse Rate 133 H Respiratory 34 H Rate Blood Pressure 150/108 O2 Sat by Pulse 100 Oximetry Medical Decision Making - Medical Decision Making Case was discussed with Dr. Martinez, who will admit For hospital call. He will come evaluate patient Disposition Clinical Impression: Altered mental status, Dehydration, Sepsis Disposition: ADMITTED IP TO THIS HOSP Condition: Serious Is patient prescribed a controlled substance at d/c from ED?: No Referrals: Elena Fuentes MD [Primary Care Provider] - 1-2 days Decision Time: 11:40
[2019-11-25] MEDS ORDERED: NALOXONE 0.4 MG/ML 1 ML VIAL IV PRN (11:41)
[2019-11-25] MEDS ORDERED: ONDANSETRON 4 MG/2 ML VIAL IVP PRN (11:41)
[2019-11-25 11:58] LABS: Glucose,Whole Blood 154 mg/dL (75-99)
[2019-11-25 12:05] LABS: ABG Base Excess -13.5 mmol/L; ABG HCO3 11 mmol/L (21-25); ABG Oxygen Saturation 98.5 % (94-97); ABG PO2 144 mmHg (83-108); ABG TCO2 12 mmol/L (19-24); Allen Test Performed? Yes
[2019-11-25 12:06] LABS: ABG PCO2 19 mmHg (35-45)
[2019-11-25 12:52] LABS: Anisocytosis Slight; Basophils % (A) 0 %; Eosinophils % (A) 0 %; HCT 39.6 % (34.0-46.0); HGB 12.3 gm/dL (11.4-16.0); Lymphocytes # (A) 0.9 k/uL (1.0-4.8); Lymphocytes % (A) 8 %; MCH 27.3 pg (25.0-35.0); MCHC 31.1 g/dL (31.0-37.0); MCV 87.7 fL (80.0-100.0); Mean Platelet Volume 7.1; Monocytes # (A) 0.5 k/uL (0-1.0); Monocytes % (A) 5 %; Neutrophils # (A) 9.5 k/uL (1.3-7.7); Neutrophils % (A) 86 %; Platelet Count 283 k/uL (150-450); RBC 4.52 m/uL (3.80-5.40)
[2019-11-25 13:04] LABS: Appearance,Urine Cloudy (Clear); Bacteria,Urine Many /hpf; Bilirubin,Urine Negative (Negative); Blood,Urine Small (Negative); Color,Urine Yellow; Glucose,Urine (UA) Negative (Negative); Ketones,Urine 1+ (Negative); Leukocyte Esterase,Urine Large (Negative); Mucus,Urine Few /hpf; Nitrite,Urine Negative (Negative); Protein,Urine 1+ (Negative); RBC,Urine 7 /hpf (0-5); Specific Gravity,Urine 1.023 (1.001-1.035); Squamous Epithelial Cell,Urine 1 /hpf (0-4); WBC,Urine >182 /hpf (0-5)
[2019-11-25] MEDS: SODIUM CHLORIDE 0.9% 1,000 ML IV SCH ×2 (13:09→19:56)
[2019-11-25 13:16] LABS: ALT 57 U/L (4-34); AST 120 U/L (14-36); African American GFR (CKD) >90 (>60 ml/min/1.73 sqM); Albumin 2.7 g/dL (3.5-5.0); Alkaline Phosphatase 81 U/L (38-126); Anion Gap 9 mmol/L; Blood Urea Nitrogen 22 mg/dL (7-17); Calcium 6.9 mg/dL (8.4-10.2); Carbon Dioxide 13 mmol/L (22-30); Chloride 123 mmol/L (98-107); Creatine Kinase 294 U/L (30-135); Glucose 145 mg/dL (74-99); Non-African American GFR(CKD) >90 (>60 ml/min/1.73 sqM); Potassium 3.3 mmol/L (3.5-5.1); Sodium 145 mmol/L (137-145); Total Bilirubin 0.8 mg/dL (0.2-1.3)
--- NOTE | 2019-11-25 13:17 | XR ---
EXAMINATION TYPE: XR chest 1V portable DATE OF EXAM: 11/25/2019 COMPARISON: Prior chest x-ray 11/25/2019 HISTORY: Altered mental status TECHNIQUE: Single frontal view of the chest is obtained. FINDINGS: There are overlying cardiac leads and the patient is rotated. There is no focal air space o pacity, pleural effusion, or pneumothorax seen. The cardiac silhouette size is within normal limits. The osseous structures are intact. IMPRESSION: No acute process.
[2019-11-25] MEDS ORDERED: DEXTROSE 5% IN WATER 1,000 ML with SODIUM BICARB (1 MEQ/ML) 150 ML IV SCH (14:00)
[2019-11-25] MEDS ORDERED: VANCOMYCIN IV PER PHARMACY 1 EACH MISC MISCELLANE PRN (14:12)
[2019-11-25] MEDS ORDERED: VANCOMYCIN 1,250 MG in SODIUM CHLORIDE 0.9% 250 ML IVPB ONE (14:30)
--- NOTE | 2019-11-25 15:13 | P.CNPUL ---
History of Present Illness Consult date: 11/25/19 Requesting physician: Emilee Mckeon Reason for consult: other (Possible sepsis.) Chief complaint: Altered mental status. History of present illness: This is a 54-year-old female transferred early this morning from [facility] for change in mental status. Patient is known to have history of multiple medical problems including seizure disorder, history of fibromyalgia, GERD. Patient is also known to have history of chronic neck and back pain, Mnire's disease, history of irritable bowel syndrome, and muscle weakness, patient uses a walker. Patient is maintained on multiple medications including Cymbalta, linens S, Reglan, Trileptal, Zantac, Klonopin, Atarax, Neurontin, Vimpat, Norvasc, and BuSpar. Patient was brought into the ER with mostly mental status changes, tachycardia, hyperchloremic metabolic acidosis, leukocytosis, and fever. Workup in the ER included a chest x-ray which was basically normal. CT of the head done at [facility] which was reported as normal. ABG showed pO2 of 144 pCO2 of 19 pH of 7.40 with a bicarb of 11. But the patient has hyperchloremic metabolic acidosis noted. It is non-anion gap metabolic acidosis. Lactic acid was 3.1. And her urinalysis showed evidence of pyuria and bacteriuria. In the ER, patient was covid negative. She received 3 L of fluids bolus. I also recommended a sodium bicarb drip on this patient. I did evaluate the patient in the ER, and not much history could be obtained. Patient is obtunded, tachycardic, she has dilated pupils, and she was noted to have some neck rigidity. Discussed her condition with the ER physician, and I recommended a spinal tap/lumbar puncture to be done. In the meantime the patient will be covered empirically with antibiotics for presumptive urinary tract infection and for presumptive meningitis. I have also recommended urological and infectious disease consultation on this patient. Review of Systems ROS unobtainable: due to mental status Past Medical History Past Medical History: Fibromyalgia, GERD/Reflux, Seizure Disorder Additional Past Medical History / Comment(s): LAST SEIZURE 12/25/17,has eaizures almost daily basis one or more a day, cHRONIC NECK/BACK PAIN, N/T FINGERS AND TOES, RAYNAUDS SYN. MENIERE'S,tinnitus, past uterine prolpase(sx) IBS, MUSCLE WEAKNESS, USES WALKER OR W/C History of Any Multi-Drug Resistant Organisms: None Reported Past Surgical History: Bariatric Surgery, Cholecystectomy, Hysterectomy Additional Past Surgical History / Comment(s): EYE SX (MUSCLES), radha en y 2012 Past Anesthesia/Blood Transfusion Reactions: No Reported Reaction Additional Past Anesthesia/Blood Transfusion Reaction / Comment(s): clausterphobia Past Psychological History: Anxiety Smoking Status: Former smoker Past Alcohol Use History: None Reported Past Drug Use History: None Reported - Past Family History Mother Family Medical History: Cancer Additional Family Medical History / Comment(s): TONGUE Father Family Medical History: Hypertension Medications and Allergies Home Medications Medication Instructions Recorded Confirmed Type DULoxetine HCL [Cymbalta] 60 mg PO BID 10/29/17 11/25/19 History Ranitidine HCl [Zantac] 300 mg PO BID 10/29/17 11/25/19 History clonazePAM [KlonoPIN] 0.5 mg PO TID 10/29/17 11/25/19 History hydrOXYzine HCL [Atarax] 50 mg PO TID PRN 10/29/17 11/25/19 History Albuterol Inhaler (Mhu) [Ventolin 2 puff INHALATION RT-Q4H PRN 12/25/17 11/25/19 History Hfa Inhaler] Ferrous Sulfate [Feosol] 325 mg PO DAILY 12/25/17 11/25/19 History Gabapentin [Neurontin] 1,200 mg PO TID 12/25/17 11/25/19 History Lidocaine 5% Patch [Lidoderm] 1 patch TOPICAL DAILY 12/25/17 11/25/19 History amLODIPine [Norvasc] 2.5 mg PO DAILY 12/25/17 11/25/19 History Chlorzoxazone [Parafon Forte DSC] 500 mg PO TID PRN 11/25/19 11/25/19 History Cyanocobalamin [Vitamin B-12 1,000 mcg SQ Q28D 11/25/19 11/25/19 History Injection] Ergocalciferol [Vitamin D2] 50,000 unit PO Q7D 11/25/19 11/25/19 History Fluticasone/Salmeterol [Advair 2 puff INHALATION RT-BID 11/25/19 11/25/19 History 250-50 Diskus] Folic Acid 1 mg PO DAILY 11/25/19 11/25/19 History Lacosamide [Vimpat] 100 mg PO DAILY 11/25/19 11/25/19 History Meclizine [Antivert] 25 mg PO TID 11/25/19 11/25/19 History Metoclopramide [Reglan] 10 mg PO ACHS 11/25/19 11/25/19 History Mirtazapine 30 mg PO HS 11/25/19 11/25/19 History Pyridoxine HCl (Vitamin B6) 25 mg PO DAILY 11/25/19 11/25/19 History [Pyridoxine HCl] QUEtiapine FUMARATE 50 mg PO HS 11/25/19 11/25/19 History Topiramate [Trokendi Xr] 200 mg PO DAILY 11/25/19 11/25/19 History Zolpidem Tartrate [Ambien Cr] 12.5 mg PO HS PRN 11/25/19 11/25/19 History busPIRone HCL [Buspar] 30 mg PO BID 11/25/19 11/25/19 History rOPINIRole HCL [Requip] 1 mg PO HS 11/25/19 11/25/19 History Allergies Allergy/AdvReac Type Severity Reaction Status Date / Time levetiracetam [From [facility]] Allergy Rash/Hives Verified 11/25/19 12:38 Penicillins Allergy "STOPPED Verified 11/25/19 12:38 BREATHING" NSAIDS (Non-Steroidal AdvReac "MAY CAUSE Verified 11/25/19 12:38 Anti-Inflamma ULCERS R/T BARIATRIC SX" Physical Exam Vitals: Vital Signs Temp Pulse Resp BP Pulse Ox 11/25/19 12:30 127 H 36 H 145/96 99 11/25/19 11:30 126 H 32 H 159/108 100 11/25/19 10:58 98.5 F 133 H 34 H 150/108 100 Intake and Output 11/24/19 11/25/19 11/25/19 22:59 06:59 14:59 Other: Weight 63.503 kg General appearance: Revealed a 54-year-old female obtunted, unresponsive to verbal or painful stimuli. Head exam: Atraumatic, normocephalic Eye exam: Dilated pupils, reactive to light. ENT exam: Neck seems to be rigid, no neck masses, no JVD. Neck exam: Positive meningismus and neck rigidity noted Respiratory exam: Symmetrical chest expansion, clear throughout no crackles or rhonchi or wheezes, patient is noted to be tachypneic. Cardiovascular Exam: Tachycardic, distant S1 and S2, no S3 gallop. GI/Abdominal exam: Soft, nontender, no megaly, no rebound, no guarding. Extremities exam: No edema, no cyanosis. Neurological exam: Obtunded, pupils are dilated, reactive to light. Does not respond to any verbal or painful stimuli. Psychiatric exam: Unable to assess. Skin: No rashes Results - Laboratory Findings CBC and BMP: 11/25/19 12:15 11/25/19 12:15 ABG ABG pH 7.40 (7.35-7.45) 11/25/19 12:03 ABG pCO2 19 mmHg (35-45) L* 11/25/19 12:03 ABG pO2 144 mmHg (83-108) H 11/25/19 12:03 ABG O2 Saturation 98.5 % (94-97) H 11/25/19 12:03 Abnormal lab findings: Abnormal Labs 11/25/19 11/25/19 11/25/19 11:56 12:03 12:15 WBC 11.0 H RDW 17.0 H Neutrophils # 9.5 H Lymphocytes # 0.9 L ABG pCO2 19 L* ABG pO2 144 H ABG HCO3 11 L ABG Total CO2 12 L ABG O2 Saturation 98.5 H Potassium Chloride Carbon Dioxide BUN Glucose POC Glucose (mg/dL) 154 H Plasma Lactic Acid Roberto Calcium AST ALT Creatine Kinase Total Protein Albumin Urine Appearance Urine Protein Urine Ketones Urine Blood Ur Leukocyte Esterase Urine RBC Urine WBC Urine WBC Clumps Urine Bacteria Urine Mucus 11/25/19 11/25/19 11/25/19 12:15 12:15 12:15 WBC RDW Neutrophils # Lymphocytes # ABG pCO2 ABG pO2 ABG HCO3 ABG Total CO2 ABG O2 Saturation Potassium 3.3 L Chloride 123 H Carbon Dioxide 13 L BUN 22 H Glucose 145 H POC Glucose (mg/dL) Plasma Lactic Acid Roberto 3.1 H* Calcium 6.9 L AST 120 H ALT 57 H Creatine Kinase 294 H Total Protein 5.0 L Albumin 2.7 L Urine Appearance Cloudy H Urine Protein 1+ H Urine Ketones 1+ H Urine Blood Small H Ur Leukocyte Esterase Large H Urine RBC 7 H Urine WBC >182 H Urine WBC Clumps Occasional H Urine Bacteria Many H Urine Mucus Few H - Diagnostic Findings Chest x-ray: image reviewed (As noted in HPI.) Assessment and Plan Assessment: Impression: Acute mental status change, differential diagnoses includes acute meningitis, encephalitis, and serotonin syndrome. Acute urinary tract infection, possible sepsis. Acute non-anion gap metabolic acidosis History of seizure disorder. Patient is on multiple seizure medications. Recommendation: Lumbar puncture. Continue IV fluids. Place patient on sodium bicarb drip. At 50 mL per hour. Empiric antibiotics for presumptive meningitis. Hold all medications which could potentially cause serotonin syndrome. Consider cyproheptadine treatment Consider benzodiazepines for agitation. Neurological consultation. Infectious disease consultation. Blood cultures and urine cultures to be done. Spinal fluid to be sent to routine Gram stain and culture and sensitivity and herpes simplex PCR. And for cell count and differential. Summary the patient in the ER, and patient will be admitted to the ICU, discussed her condition with Dr. Patino. Time with Patient: Greater than 30
[2019-11-25] MEDS ORDERED: LORazepam 2 MG/ML INJ IV PRN (15:16)
--- NOTE | 2019-11-25 15:29 | ED ---
Medical Decision Making - Medical Decision Making Dr. Bal came down and did request lumbar puncture be done. This was done. Consent received from family by nursing staff. Opening pressure 27. Clear fluid. Sent to lab. He also wants patient to have Rocephin despite known penicillin ALLERGY with history of "stopped breathing " Neurology was also paged to evaluate patient - Lab Data Result diagrams: 11/25/19 12:15 11/25/19 12:15 Critical Care Time Critical Care Time: Yes Total Critical Care Time: 44 Disposition Clinical Impression: Altered mental status, Dehydration, Sepsis Disposition: ADMITTED IP TO THIS [facility] Condition: Serious Is patient prescribed a controlled substance at d/c from ED?: No Procedures - Lumbar Puncture Consent Obtained: written consent, emergent situation Indication for Procedure: fever work up, change in mental status Patient Position: sitting upright/leaning forward Skin Prep: 0.5% Chlorhexidine/Alcohol Local Anesthetic Used: Lidocaine 1% Spinal Needle Gauge: 20G Spinal Needle Length: 3.5in Interspace Used: L4-L5 Opening Pressure (mmHg): 27 Fluid Initially Obtained: clear Complications: none Patient Tolerated Procedure: well, no complications
[2019-11-25] MEDS ORDERED: ACETAMINOPHEN SUPPOSITORY 650 MG SUPP RECTAL STA (15:30)
[2019-11-25] MEDS ORDERED: ACETAMINOPHEN SUPPOSITORY 650 MG SUPP RECTAL PRN (15:30)
[2019-11-25 15:58] LABS: Glucose,CSF 102 mg/dL (40-70); Total Protein,CSF 118 mg/dL (12-60)
[2019-11-25 16:17] LABS: Appearance,CSF Clear; CSF Tube Number 4; Nucleated Cells, CSF 0 u/L (0-5); Red Blood Cell,CSF 0 u/L (0-10)
[2019-11-25] MEDS ORDERED: Potassium Replacement Protocol 1 EACH MISC MISCELLANE PRN (16:19)
--- NOTE | 2019-11-25 16:55 | P.HPIM ---
History of Present Illness H&P Date: 11/25/19 Chief Complaint: Altered mental status 54-year-old female with PMH of fibromyalgia, seizure disorder, Mnire's disease, Raynaud's syndrome presents to the ED as a transfer from [facility] for altered mental status. Patient is completely altered and majority of documentation was obtained from chart review. Apparently, patient has been less responsive over the last few days. She was initially seen at [facility] and was diagnosed with UTI. She was noted to have low bicarbonate and elevated lactic acid. Blood cultures were obtained and she was started on levofloxacin. CT head was done at that time which was unremarkable. Chest x-ray was negative. Coronavirus testing was negative. She received 3 L bolus in the ED at [facility] and transferred for higher level of care. In the ED, she had a T-max of 101.4. She was consistently tachycardic in the 120s. She was to Make with a respiratory rate of 36. Her was elevated at 150/108. She was saturating 100% on room air. CBC shows leukocytosis of 11. ABG was done which showed pH of 7.4, pCO2 of 19, bicarbonate of 11. CMP showed potassium of 3.3, chloride of 123, bicarbonate of 13 and BUN of 22. Lactic acid was 3.1. AST was 120, ALT 57. Creatinine kinase was 294. Troponin was less th an 0.012. Urinalysis shows large leukocyte esterase. Review of Systems Unable to obtain Past Medical History Past Medical History: Fibromyalgia, GERD/Reflux, Seizure Disorder Additional Past Medical History / Comment(s): LAST SEIZURE 12/25/17,has eaizures almost daily basis one or more a day, cHRONIC NECK/BACK PAIN, N/T FINGERS AND TOES, RAYNAUDS SYN. MENIERE'S,tinnitus, past uterine prolpase(sx) IBS, MUSCLE WEAKNESS, USES WALKER OR W/C History of Any Multi-Drug Resistant Organisms: None Reported Past Surgical History: Bariatric Surgery, Cholecystectomy, Hysterectomy Additional Past Surgical History / Comment(s): EYE SX (MUSCLES), radha en y 2012 Past Anesthesia/Blood Transfusion Reactions: No Reported Reaction Additional Past Anesthesia/Blood Transfusion Reaction / Comment(s): clausterphobia Past Psychological History: Anxiety Smoking Status: Former smoker Past Alcohol Use History: None Reported Past Drug Use History: None Reported - Past Family History Mother Family Medical History: Cancer Additional Family Medical History / Comment(s): TONGUE Father Family Medical History: Hypertension Medications and Allergies Home Medications Medication Instructions Recorded Confirmed Type DULoxetine HCL [Cymbalta] 60 mg PO BID 10/29/17 11/25/19 History Ranitidine HCl [Zantac] 300 mg PO BID 10/29/17 11/25/19 History clonazePAM [KlonoPIN] 0.5 mg PO TID 10/29/17 11/25/19 History hydrOXYzine HCL [Atarax] 50 mg PO TID PRN 10/29/17 11/25/19 History Albuterol Inhaler (Mhu) [Ventolin 2 puff INHALATION RT-Q4H PRN 12/25/17 11/25/19 History Hfa Inhaler] Ferrous Sulfate [Feosol] 325 mg PO DAILY 12/25/17 11/25/19 History Gabapentin [Neurontin] 1,200 mg PO TID 12/25/17 11/25/19 History Lidocaine 5% Patch [Lidoderm] 1 patch TOPICAL DAILY 12/25/17 11/25/19 History amLODIPine [Norvasc] 2.5 mg PO DAILY 12/25/17 11/25/19 History Chlorzoxazone [Parafon Forte DSC] 500 mg PO TID PRN 11/25/19 11/25/19 History Cyanocobalamin [Vitamin B-12 1,000 mcg SQ Q28D 11/25/19 11/25/19 History Injection] Ergocalciferol [Vitamin D2] 50,000 unit PO Q7D 11/25/19 11/25/19 History Fluticasone/Salmeterol [Advair 2 puff INHALATION RT-BID 11/25/19 11/25/19 History 250-50 Diskus] Folic Acid 1 mg PO DAILY 11/25/19 11/25/19 History Lacosamide [Vimpat] 100 mg PO DAILY 11/25/19 11/25/19 History Meclizine [Antivert] 25 mg PO TID 11/25/19 11/25/19 History Metoclopramide [Reglan] 10 mg PO ACHS 11/25/19 11/25/19 History Mirtazapine 30 mg PO HS 11/25/19 11/25/19 History Pyridoxine HCl (Vitamin B6) 25 mg PO DAILY 11/25/19 11/25/19 History [Pyridoxine HCl] QUEtiapine FUMARATE 50 mg PO HS 11/25/19 11/25/19 History Topiramate [Trokendi Xr] 200 mg PO DAILY 11/25/19 11/25/19 History Zolpidem Tartrate [Ambien Cr] 12.5 mg PO HS PRN 11/25/19 11/25/19 History busPIRone HCL [Buspar] 30 mg PO BID 11/25/19 11/25/19 History rOPINIRole HCL [Requip] 1 mg PO HS 11/25/19 11/25/19 History Allergies Allergy/AdvReac Type Severity Reaction Status Date / Time levetiracetam [From [facility]] Allergy Rash/Hives Verified 11/25/19 12:38 Penicillins Allergy "STOPPED Verified 11/25/19 12:38 BREATHING" NSAIDS (Non-Steroidal AdvReac "MAY CAUSE Verified 11/25/19 12:38 Anti-Inflamma ULCERS R/T BARIATRIC SX" Physical Exam Vitals: Vital Signs Temp Pulse Resp BP Pulse Ox 11/25/19 15:30 129 H 36 H 154/115 98 11/25/19 15:15 101.4 F H 128 H 36 H 149/106 100 11/25/19 14:30 131 H 34 H 156/110 97 11/25/19 13:30 127 H 32 H 166/98 99 11/25/19 12:30 127 H 36 H 145/96 99 11/25/19 11:30 126 H 32 H 159/108 100 11/25/19 10:58 98.5 F 133 H 34 H 150/108 100 Intake and Output 11/25/19 11/25/19 11/25/19 06:59 14:59 22:59 Other: Weight 63.503 kg General: [non toxic], [patient is completely altered and tachypnea], [appears at stated age] Derm: [warm], [dry] Head: [atraumatic], [normocephalic], [symmetric] Eyes: [Her pupils are dilated and sluggish], [no lid lag], [anicteric sclera] Mouth: [no lip lesion], [mucus membranes moist] Cardiovascular: [S1S2 reg], [tachycardic], [positive DP pulse bilateral], Lungs: [Decreased breath sounds bilateral], [no rhonchi, no rales] , [no accessory muscle use] Abdominal: [soft], [ nontender to palpation], [no guarding], [no appreciable organomegaly] Ext: [no gross muscle atrophy], [no edema], [no contractures] Neuro: [Unable to determine] Psych: [Unable to determine] Results CBC & Chem 7: 11/25/19 12:15 11/25/19 12:15 Labs: Abnormal Lab Results - Last 24 Hours (Table) 11/25/19 11/25/19 11/25/19 Range/Units 11:56 12:03 12:15 WBC 11.0 H (3.8-10.6) k/uL RDW 17.0 H (11.5-15.5) % Neutrophils # 9.5 H (1.3-7.7) k/uL Lymphocytes # 0.9 L (1.0-4.8) k/uL ABG pCO2 19 L* (35-45) mmHg ABG pO2 144 H (83-108) mmHg ABG HCO3 11 L (21-25) mmol/L ABG Total CO2 12 L (19-24) mmol/L ABG O2 Saturation 98.5 H (94-97) % Potassium (3.5-5.1) mmol/L Chloride (98-107) mmol/L Carbon Dioxide (22-30) mmol/L BUN (7-17) mg/dL Glucose (74-99) mg/dL POC Glucose (mg/dL) 154 H (75-99) mg/dL Plasma Lactic Acid Roberto (0.7-2.0) mmol/L Calcium (8.4-10.2) mg/dL AST (14-36) U/L ALT (4-34) U/L Creatine Kinase (30-135) U/L Total Protein (6.3-8.2) g/dL Albumin (3.5-5.0) g/dL Urine Appearance (Clear) Urine Protein (Negative) Urine Ketones (Negative) Urine Blood (Negative) Ur Leukocyte Esterase (Negative) Urine RBC (0-5) /hpf Urine WBC (0-5) /hpf Urine WBC Clumps (None) /hpf Urine Bacteria (None) /hpf Urine Mucus (None) /hpf CSF Glucose (40-70) mg/dL CSF Total Protein (12-60) mg/dL 11/25/19 11/25/19 11/25/19 Range/Units 12:15 12:15 12:15 WBC (3.8-10.6) k/uL RDW (11.5-15.5) % Neutrophils # (1.3-7.7) k/uL Lymphocytes # (1.0-4.8) k/uL ABG pCO2 (35-45) mmHg ABG pO2 (83-108) mmHg ABG HCO3 (21-25) mmol/L ABG Total CO2 (19-24) mmol/L ABG O2 Saturation (94-97) % Potassium 3.3 L (3.5-5.1) mmol/L Chloride 123 H (98-107) mmol/L Carbon Dioxide 13 L (22-30) mmol/L BUN 22 H (7-17) mg/dL Glucose 145 H (74-99) mg/dL POC Glucose (mg/dL) (75-99) mg/dL Plasma Lactic Acid Roberto 3.1 H* (0.7-2.0) mmol/L Calcium 6.9 L (8.4-10.2) mg/dL AST 120 H (14-36) U/L ALT 57 H (4-34) U/L Creatine Kinase 294 H (30-135) U/L Total Protein 5.0 L (6.3-8.2) g/dL Albumin 2.7 L (3.5-5.0) g/dL Urine Appearance Cloudy H (Clear) Urine Protein 1+ H (Negative) Urine Ketones 1+ H (Negative) Urine Blood Small H (Negative) Ur Leukocyte Esterase Large H (Negative) Urine RBC 7 H (0-5) /hpf Urine WBC >182 H (0-5) /hpf Urine WBC Clumps Occasional H (None) /hpf Urine Bacteria Many H (None) /hpf Urine Mucus Few H (None) /hpf CSF Glucose (40-70) mg/dL CSF Total Protein (12-60) mg/dL 11/25/19 Range/Units 15:25 WBC (3.8-10.6) k/uL RDW (11.5-15.5) % Neutrophils # (1.3-7.7) k/uL Lymphocytes # (1.0-4.8) k/uL ABG pCO2 (35-45) mmHg ABG pO2 (83-108) mmHg ABG HCO3 (21-25) mmol/L ABG Total CO2 (19-24) mmol/L ABG O2 Saturation (94-97) % Potassium (3.5-5.1) mmol/L Chloride (98-107) mmol/L Carbon Dioxide (22-30) mmol/L BUN (7-17) mg/dL Glucose (74-99) mg/dL POC Glucose (mg/dL) (75-99) mg/dL Plasma Lactic Acid Roberto (0.7-2.0) mmol/L Calcium (8.4-10.2) mg/dL AST (14-36) U/L ALT (4-34) U/L Creatine Kinase (30-135) U/L Total Protein (6.3-8.2) g/dL Albumin (3.5-5.0) g/dL Urine Appearance (Clear) Urine Protein (Negative) Urine Ketones (Negative) Urine Blood (Negative) Ur Leukocyte Esterase (Negative) Urine RBC (0-5) /hpf Urine WBC (0-5) /hpf Urine WBC Clumps (None) /hpf Urine Bacteria (None) /hpf Urine Mucus (None) /hpf CSF Glucose 102 H (40-70) mg/dL CSF Total Protein 118 H (12-60) mg/dL Assessment and Plan Assessment: Altered mental status Sepsis with unknown etiology Hypokalemia Transaminitis Hyperchloremic metabolic acidosis Seizure disorder Fibromyalgia Patient has acute altered mentation and meet sepsis criteria. Her pupils appear dilated and sluggish. Neck rigidity was noted by mine inspector federal. Differentials include elevated intracranial pressure, meningitis/encephalitis, urinary tract infection, seizure. Plans: Lumbar puncture to be performed in the ED for culture, opening pressure, VDRL and cell count. Patient will be empirically started on vancomycin and Rocephin for treatment of meningitis. EEG has been ordered. Patient will be admitted to ICU for further management. She is low threshold for intubation. Advanced neurochecks. Neurology has been consulted. Patient meets sepsis criteria. She is tachycardic. She has leukocytosis. Chest x-ray is negative. Urinalysis shows large leukocyte esterase. Lactic acid is elevated at 3.1. Plans: We will start antibiotics as above. Levofloxacin will be discontinued. Infectious diseases consulted. Urine culture and blood culture is ordered. CSF culture to be collected. Continue normal saline at 130 mL/h. Repeat lactic acid until negative. Telemetry monitoring. Potassium 3.3. Plans: Replace via protocol. Repeat CMP tomorrow morning. AST 120, ALT 57. Total bilirubin within normal limits. Alkaline phosphatase within normal limits. Possibly related to antiepileptic medication. Plans: Repeat CMP tomorrow morning. Follow hepatitis panel. Follow lipid panel. Chloride 123, bicarbonate of 13. ABG shows pCO2 of 19 and pH of 7.4. Patient has mixed respiratory alkalosis with metabolic acidosis normal anion gap. Her respiratory alkalosis is likely related to tachypnea. Hyperchloremic metabolic acidosis likely related to infuse IVF. Patient is on Lacosamide and Topiramate at home. Plans: Seizure precautions. Seizure pads. Ativan as needed for seizures. Resume home medication when able to tolerate by mouth. Patient is on Cymbalta, and gabapentin at home. Plans: Hold sedative medication due to current mental state. [Case was discussed with ED physician Dr. Patino. Neurology evaluated the patient in the ED and recommends transfer for continuous EEG monitoring. I will attempt to call [facility] for possible transfer. Prognosis is extremely guarded at this time. Patient is admitted to ICU for anticipated greater than 48 hour admission for altered mental status, concerns for meningitis versus seizure.]
[2019-11-25 16:57] LABS: ABG Base Excess -14.4 mmol/L; ABG Oxygen Saturation 98.5 % (94-97); ABG PO2 138 mmHg (83-108); ABG TCO2 11 mmol/L (19-24); Allen Test Performed? Yes
[2019-11-25 16:58] VITALS: TEMP 99.1
[2019-11-25 16:58] LABS: ABG PCO2 17 mmHg (35-45)
[2019-11-25 16:59] LABS: ABG HCO3 10 mmol/L (21-25)
[2019-11-25 17:07] LABS: Glucose,Whole Blood 141 mg/dL (75-99)
[2019-11-25] MEDS ORDERED: DEXTROSE 5% IN WATER 1,000 ML with SODIUM BICARB (1 MEQ/ML) 150 ML IV ONE (17:12)
[2019-11-25] MEDS ORDERED: LACOSAMIDE IV 200 MG in SODIUM CHLORIDE 0.9% 50 ML IVPB ONE (18:47)
--- NOTE | 2019-11-25 19:25 | XR ---
EXAMINATION TYPE: XR chest 1V portable DATE OF EXAM: 11/25/2019 COMPARISON: Today HISTORY: Check tube placement TECHNIQUE: FINDINGS: Heart and mediastinum are normal. Lungs are clear. Diaphragm is normal. There is nasogastri c tube in the gastric fundus. IMPRESSION: NG tube in good position. Normal chest. No change.
[2019-11-25] MEDS ORDERED: SODIUM CHLORIDE 0.9% 1,000 ML IV ONE (19:37)
[2019-11-25] MEDS: CYPROHEPTADINE 4 MG TABLET PO SCH (19:55)
[2019-11-25] MEDS ORDERED: PROPOFOL 100 ML IV ONE (20:44)
[2019-11-25] MEDS ORDERED: PROPOFOL 1,000 MG in EMPTY BAG 1 BAG IV SCH (21:00)
--- NOTE | 2019-11-25 21:35 | CT ---
EXAMINATION TYPE: CT brain wo con DATE OF EXAM: 11/25/2019 COMPARISON: Today HISTORY: ams CT DLP: 1099.4 mGycm Automated exposure control for dose reduction was used. Ventricles have normal size. There is no mass effect nor midline shift. There is no sign of intracran ial hemorrhage. The calvarium is intact. IMPRESSION: Negative unenhanced head CT scan. No change.
--- NOTE | 2019-11-25 21:40 | XR ---
EXAMINATION TYPE: XR chest 1V portable DATE OF EXAM: 11/25/2019 COMPARISON: 11/25/2019 HISTORY: Check tube placement TECHNIQUE: FINDINGS: Endotracheal tube is 2.5 cm from the doris. Nasogastric tube is in the stomach. Lungs are clear of consolidation. There is no heart failure. Heart appears normal. Bony thorax is intact. IMPRESSION: No active cardiopulmonary disease. Normal heart. No change.
[2019-11-25 22:03] LABS: ABG Base Excess -13.8 mmol/L; ABG HCO3 12 mmol/L (21-25); ABG PCO2 21 mmHg (35-45); ABG PH 7.36 (7.35-7.45); ABG PO2 >400 mmHg (83-108); ABG TCO2 12 mmol/L (19-24); Allen Test Performed? Yes
--- NOTE | 2019-11-25 22:17 | P.CONS ---
History of Present Illness - Reason for Consult Consult date: 11/25/19 Fever Requesting physician: Emilee Mckeon - Chief Complaint lethargy and weakness x few days - History of Present Illness Patient is a 34-year-old female who apparently initially presented to [facility] for mental status changes patient symptom currently has been going on for about 2 weeks and this patient who did have a history of mental illness and apparently has not been taking her medication as advised with the patient symptom continue get worse she was getting less responsive for the last few days patient was taken to the [facility] with the patient was evaluated and facility patient was noted to be dehydration with low CO2 and elev ated lactic acid She did have elevated white count chest x-ray was negative CT of the brain was negative she has been diagnosed with the urinary tract infection received fluid boluses and subsequently patient was transferred to [facility] on arrival to the ER the patient initially afebrile subsequently spiked a fever of 101.4 F patient has been tachycardic white count was 11,000 she also have elevated liver enzymes lactic acid has been elevated urine has been positive with large ascites trace more than 1-2 WBC patient did have a chest x-ray and has been negative for acute process patient also have LP completed we did shows a glucose of 102 protein was elevated 118 however had no white cell has been seen patient has been started on her Rocephin 2 g every 12 in addition to the vancomycin has been admitted to the hospital infectious disease has been consulted for further management of antibiotic therapy all information has been obtained from review of the chart.nursing staff who have talked to the earlier as the patient is currently unable provide an reliable history. Review of Systems Positive point has been mentioned in HPI complete review could not be obtained because of underlying mental status Past Medical History Past Medical History: Fibromyalgia, GERD/Reflux, Pneumonia, Seizure Disorder Additional Past Medical History / Comment(s): has seizures on a daily basis one or more a day, cHRONIC NECK/BACK PAIN, N/T FINGERS AND TOES, RAYNAUDS SYN. MENIERE'S,tinnitus, past uterine prolpase(sx) IBS, MUSCLE WEAKNESS, USES WALKER OR W/C History of Any Multi-Drug Resistant Organisms: None Reported Past Surgical History: Bariatric Surgery, Cholecystectomy, Hysterectomy Additional Past Surgical History / Comment(s): EYE SX (MUSCLES), radha en y 2012 Past Anesthesia/Blood Transfusion Reactions: No Reported Reaction Additional Past Anesthesia/Blood Transfusion Reaction / Comm: clausterphobia Smoking Status: Current every day smoker - Past Family History Mother Family Medical History: Cancer Additional Family Medical History / Comment(s): TONGUE Father Family Medical History: Hypertension Medications and Allergies Home Medications Medication Instructions Recorded Confirmed Type DULoxetine HCL [Cymbalta] 60 mg PO BID 10/29/17 11/25/19 History Ranitidine HCl [Zantac] 300 mg PO BID 10/29/17 11/25/19 History clonazePAM [KlonoPIN] 0.5 mg PO TID 10/29/17 11/25/19 History hydrOXYzine HCL [Atarax] 50 mg PO TID PRN 10/29/17 11/25/19 History Albuterol Inhaler (Mhu) [Ventolin 2 puff INHALATION RT-Q4H PRN 12/25/17 11/25/19 History Hfa Inhaler] Ferrous Sulfate [Feosol] 325 mg PO DAILY 12/25/17 11/25/19 History Gabapentin [Neurontin] 1,200 mg PO TID 12/25/17 11/25/19 History Lidocaine 5% Patch [Lidoderm] 1 patch TOPICAL DAILY 12/25/17 11/25/19 History amLODIPine [Norvasc] 2.5 mg PO DAILY 12/25/17 11/25/19 History Chlorzoxazone [Parafon Forte DSC] 500 mg PO TID PRN 11/25/19 11/25/19 History Cyanocobalamin [Vitamin B-12 1,000 mcg SQ Q28D 11/25/19 11/25/19 History Injection] Ergocalciferol [Vitamin D2] 50,000 unit PO Q7D 11/25/19 11/25/19 History Fluticasone/Salmeterol [Advair 2 puff INHALATION RT-BID 11/25/19 11/25/19 History 250-50 Diskus] Folic Acid 1 mg PO DAILY 11/25/19 11/25/19 History Lacosamide [Vimpat] 100 mg PO DAILY 11/25/19 11/25/19 History Meclizine [Antivert] 25 mg PO TID 11/25/19 11/25/19 History Metoclopramide [Reglan] 10 mg PO ACHS 11/25/19 11/25/19 History Mirtazapine 30 mg PO HS 11/25/19 11/25/19 History Pyridoxine HCl (Vitamin B6) 25 mg PO DAILY 11/25/19 11/25/19 History [Pyridoxine HCl] QUEtiapine FUMARATE 50 mg PO HS 11/25/19 11/25/19 History Topiramate [Trokendi Xr] 200 mg PO DAILY 11/25/19 11/25/19 History Zolpidem Tartrate [Ambien Cr] 12.5 mg PO HS PRN 11/25/19 11/25/19 History busPIRone HCL [Buspar] 30 mg PO BID 11/25/19 11/25/19 History rOPINIRole HCL [Requip] 1 mg PO HS 11/25/19 11/25/19 History Allergies Allergy/AdvReac Type Severity Reaction Status Date / Time levetiracetam [From [facility]] Allergy Rash/Hives Verified 11/25/19 12:38 Penicillins Allergy "STOPPED Verified 11/25/19 12:38 BREATHING" NSAIDS (Non-Steroidal AdvReac "MAY CAUSE Verified 11/25/19 12:38 Anti-Inflamma ULCERS R/T BARIATRIC SX" Physical Exam Vitals: Vital Signs Temp Pulse Resp BP Pulse Ox 11/25/19 19:00 122 H 27 H 123/110 99 11/25/19 18:30 126 H 35 H 150/108 98 11/25/19 18:00 128 H 24 145/98 99 11/25/19 17:30 128 H 34 H 155/107 98 11/25/19 17:00 128 H 26 H 139/108 99 11/25/19 16:50 99.1 F 128 H 26 H 139/108 99 11/25/19 16:40 126 H 29 H 143/109 98 11/25/19 16:30 125 H 21 98 11/25/19 16:00 129 H 34 H 151/101 99 11/25/19 15:30 129 H 36 H 154/115 98 11/25/19 15:15 101.4 F H 128 H 36 H 149/106 100 11/25/19 14:30 131 H 34 H 156/110 97 11/25/19 13:30 127 H 32 H 166/98 99 11/25/19 12:30 127 H 36 H 145/96 99 11/25/19 11:30 126 H 32 H 159/108 100 11/25/19 10:58 98.5 F 133 H 34 H 150/108 100 Intake and Output 11/25/19 11/25/19 11/25/19 06:59 14:59 22:59 Intake Total 680 Output Total 560 Balance 120 Intake: IV 680 Dextrose 5% in Water 1, 50 000 ml @ 50 mls/hr IV . Q23H ONE with Sodium Bicarb (1 Meq/ml) 150 ml Rx#:[id number] Sodium Chloride 0.9% 1, 330 000 ml @ 100 mls/hr IV . Q10H JACQUELIN Rx#:[id number] Vancomycin 1,250 mg In 250 Sodium Chloride 0.9% 250 ml @ 125 mls/hr IVPB ONCE ONE Rx#:[id number] cefTRIAXone 2 gm In 50 Sodium Chloride 0.9% 50 ml @ 100 mls/hr IVPB ONCE ONE Rx#:[id number] Output: Urine 560 Other: Voiding Method Indwelling Catheter Weight 63.503 kg 64.7 kg GENERAL DESCRIPTION: Middle-aged female lying in bed, no distress. No tachypnea or accessory muscle of respiration use. HEENT: Shows Pallor , no scleral icterus. Oral mucous membrane is dry. NECK: Trachea central, no thyromegaly. LUNGS: Unlabored breathing. Clear to auscultation anteriorly. No wheeze or crackle. HEART: S1, S2, regular rate and rhythm. ABDOMEN: Soft, no tenderness , guarding or rigidity EXTREMITIES: No edema of feet. SKIN: No rash, no masses palpable. NEUROLOGICAL: The patient is lethargic and orientation could not be determined slight neck rigidity was noticed. Results CBC & Chem 7: 11/25/19 12:15 11/25/19 12:15 Labs: Abnormal Lab Results - Last 24 Hours (Table) 11/25/19 11/25/19 11/25/19 Range/Units 11:56 12:03 12:15 WBC 11.0 H (3.8-10.6) k/uL RDW 17.0 H (11.5-15.5) % Neutrophils # 9.5 H (1.3-7.7) k/uL Lymphocytes # 0.9 L (1.0-4.8) k/uL ABG pCO2 19 L* (35-45) mmHg ABG pO2 144 H (83-108) mmHg ABG HCO3 11 L (21-25) mmol/L ABG Total CO2 12 L (19-24) mmol/L ABG O2 Saturation 98.5 H (94-97) % Potassium (3.5-5.1) mmol/L Chloride (98-107) mmol/L Carbon Dioxide (22-30) mmol/L BUN (7-17) mg/dL Glucose (74-99) mg/dL POC Glucose (mg/dL) 154 H (75-99) mg/dL Plasma Lactic Acid Roberto (0.7-2.0) mmol/L Calcium (8.4-10.2) mg/dL AST (14-36) U/L ALT (4-34) U/L Creatine Kinase (30-135) U/L Total Protein (6.3-8.2) g/dL Albumin (3.5-5.0) g/dL Urine Appearance (Clear) Urine Protein (Negative) Urine Ketones (Negative) Urine Blood (Negative) Ur Leukocyte Esterase (Negative) Urine RBC (0-5) /hpf Urine WBC (0-5) /hpf Urine WBC Clumps (None) /hpf Urine Bacteria (None) /hpf Urine Mucus (None) /hpf CSF Glucose (40-70) mg/dL CSF Total Protein (12-60) mg/dL 11/25/19 11/25/19 11/25/19 Range/Units 12:15 12:15 12:15 WBC (3.8-10.6) k/uL RDW (11.5-15.5) % Neutrophils # (1.3-7.7) k/uL Lymphocytes # (1.0-4.8) k/uL ABG pCO2 (35-45) mmHg ABG pO2 (83-108) mmHg ABG HCO3 (21-25) mmol/L ABG Total CO2 (19-24) mmol/L ABG O2 Saturation (94-97) % Potassium 3.3 L (3.5-5.1) mmol/L Chloride 123 H (98-107) mmol/L Carbon Dioxide 13 L (22-30) mmol/L BUN 22 H (7-17) mg/dL Glucose 145 H (74-99) mg/dL POC Glucose (mg/dL) (75-99) mg/dL Plasma Lactic Acid Roberto 3.1 H* (0.7-2.0) mmol/L Calcium 6.9 L (8.4-10.2) mg/dL AST 120 H (14-36) U/L ALT 57 H (4-34) U/L Creatine Kinase 294 H (30-135) U/L Total Protein 5.0 L (6.3-8.2) g/dL Albumin 2.7 L (3.5-5.0) g/dL Urine Appearance Cloudy H (Clear) Urine Protein 1+ H (Negative) Urine Ketones 1+ H (Negative) Urine Blood Small H (Negative) Ur Leukocyte Esterase Large H (Negative) Urine RBC 7 H (0-5) /hpf Urine WBC >182 H (0-5) /hpf Urine WBC Clumps Occasional H (None) /hpf Urine Bacteria Many H (None) /hpf Urine Mucus Few H (None) /hpf CSF Glucose (40-70) mg/dL CSF Total Protein (12-60) mg/dL 11/25/19 11/25/19 11/25/19 Range/Units 15:25 16:15 16:47 WBC (3.8-10.6) k/uL RDW (11.5-15.5) % Neutrophils # (1.3-7.7) k/uL Lymphocytes # (1.0-4.8) k/uL ABG pCO2 (35-45) mmHg ABG pO2 (83-108) mmHg ABG HCO3 (21-25) mmol/L ABG Total CO2 (19-24) mmol/L ABG O2 Saturation (94-97) % Potassium (3.5-5.1) mmol/L Chloride (98-107) mmol/L Carbon Dioxide (22-30) mmol/L BUN (7-17) mg/dL Glucose (74-99) mg/dL POC Glucose (mg/dL) 141 H (75-99) mg/dL Plasma Lactic Acid Roberto 3.1 H* (0.7-2.0) mmol/L Calcium (8.4-10.2) mg/dL AST (14-36) U/L ALT (4-34) U/L Creatine Kinase (30-135) U/L Total Protein (6.3-8.2) g/dL Albumin (3.5-5.0) g/dL Urine Appearance (Clear) Urine Protein (Negative) Urine Ketones (Negative) Urine Blood (Negative) Ur Leukocyte Esterase (Negative) Urine RBC (0-5) /hpf Urine WBC (0-5) /hpf Urine WBC Clumps (None) /hpf Urine Bacteria (None) /hpf Urine Mucus (None) /hpf CSF Glucose 102 H (40-70) mg/dL CSF Total Protein 118 H (12-60) mg/dL 11/25/19 11/25/19 Range/Units 16:55 19:01 WBC (3.8-10.6) k/uL RDW (11.5-15.5) % Neutrophils # (1.3-7.7) k/uL Lymphocytes # (1.0-4.8) k/uL ABG pCO2 17 L* (35-45) mmHg ABG pO2 138 H (83-108) mmHg ABG HCO3 10 L* (21-25) mmol/L ABG Total CO2 11 L (19-24) mmol/L ABG O2 Saturation 98.5 H (94-97) % Potassium (3.5-5.1) mmol/L Chloride (98-107) mmol/L Carbon Dioxide (22-30) mmol/L BUN (7-17) mg/dL Glucose (74-99) mg/dL POC Glucose (mg/dL) (75-99) mg/dL Plasma Lactic Acid Roberto 2.9 H* (0.7-2.0) mmol/L Calcium (8.4-10.2) mg/dL AST (14-36) U/L ALT (4-34) U/L Creatine Kinase (30-135) U/L Total Protein (6.3-8.2) g/dL Albumin (3.5-5.0) g/dL Urine Appearance (Clear) Urine Protein (Negative) Urine Ketones (Negative) Urine Blood (Negative) Ur Leukocyte Esterase (Negative) Urine RBC (0-5) /hpf Urine WBC (0-5) /hpf Urine WBC Clumps (None) /hpf Urine Bacteria (None) /hpf Urine Mucus (None) /hpf CSF Glucose (40-70) mg/dL CSF Total Protein (12-60) mg/dL Microbiology - Last 24 Hours (Table) 11/25/19 15:25 CSF Culture - Preliminary Cerebral Spinal Fluid Assessment and Plan Assessment: patient presented to the hospital with sepsis in this patient did have fever tachycardia elevated white count and a positive UA could be more likely a urinary source is currently no other obvious focus of infection in this patient all did have a normal chest x-ray and CSF examination did not show any evidence of meningitis or encephalitis she did have elevated liver enzymes and underlying abdominal source not entirely excluded. (1) UTI (urinary tract infection) Current Visit: Yes Status: Acute Code(s): N39.0 - URINARY TRACT INFECTION, SITE NOT SPECIFIED SNOMED Code(s): 61270569 (2) Sepsis Current Visit: Yes Status: Acute Code(s): A41.9 - SEPSIS, UNSPECIFIED ORGANISM SNOMED Code(s): 53288147 Plan: 1-antibiotic will be switched to Rocephin 2 g daily and continue vancomycin while waiting for the culture to finalize 2-check ultrasound of the liver and gallbladder area 3-IV fluids We will follow on clinical condition and cultures to further adjust medication if needed Thank you for this consultation we will follow the patient along with you Time with Patient: Greater than 30
[2019-11-26] MEDS ORDERED: HEPARIN SODIUM,PORCINE 5,000 UNIT/ML 1 ML VIAL SQ SCH
[2019-11-26] MEDS ORDERED: VANCOMYCIN 1,250 MG in SODIUM CHLORIDE 0.9% 250 ML IVPB SCH ×2
[2019-11-26] MEDS: CYPROHEPTADINE 4 MG TABLET PO SCH (00:10)
[2019-11-26 00:36] VITALS: BP 149/109; PULSE 128; RESP 24
[2019-11-26] MEDS ORDERED: LEVOFLOXACIN 750MG-D5W PMX 750 MG in DEXTROSE/WATER 1 150ML.BAG IVPB SCH (09:00)
[2019-11-26] MEDS ORDERED: PANTOPRAZOLE 40 MG/10 ML VIAL IV SCH (09:00)
[2019-11-28 12:25] LABS: VDRL, Qualitative CSF Nonreactive (Nonreactive)
--- NOTE | 2019-12-09 12:52 | P.DS ---
Providers Date of admission: 11/25/19 11:41 Expected date of discharge: 11/25/19 Attending physician: Emilee Mckeon MD Consults: 11/25/19 11:43 Consult Physician Urgent Consulting Provider: Jone Spring Consult Reason/Comments: ams Do you want consulting provider notified?: Yes 11/25/19 13:48 Consult Physician Urgent Consulting Provider: Rik Bal Consult Reason/Comments: critical care Do you want consulting provider notified?: Already Contacted 11/25/19 14:13 Consult Physician Urgent Consulting Provider: Chika Xavier Consult Reason/Comments: sepsis Do you want consulting provider notified?: Yes Primary care physician: [facility] Course: 54-year-old female with PMH of fibromyalgia, seizure disorder, Mnire's disease, Raynaud's syndrome presents to the ED as a transfer from [facility] for altered mental status. Patient is completely altered and majority of documentation was obtained from chart review. Apparently, patient has been less responsive over the last few days. She was initially seen at [facility] and was diagnosed with UTI. She was noted to have low bicarbonate and elevated lactic acid. Blood cultures were obtained and she was started on levofloxacin. CT head was done at that time which was unremarkable. Chest x-ray was negative. Coronavirus testing was negative. She received 3 L bolus in the ED at [facility] and transferred for higher level of care. In the ED, she had a T-max of 101.4. She was consistently tachycardic in the 120s. She was to Make with a respiratory rate of 36. Her was elevated at 150/108. She was saturating 100% on room air. CBC shows leukocytosis of 11. ABG was done which showed pH of 7.4, pCO2 of 19, bicarbonate of 11. CMP showed potassium of 3.3, chloride of 123, bicarbonate of 13 and BUN of 22. Lactic acid was 3.1. AST was 120, ALT 57. Creatinine kinase was 294. Troponin was less than 0.012. Urinalysis shows large leukocyte esterase. Discharge Diagnosis: Altered mental status Sepsis with unknown etiology Hypokalemia Transaminitis Hyperchloremic metabolic acidosis Seizure disorder Fibromyalgia Patient has acute altered mentation and meet sepsis criteria. Her pupils appear dilated and sluggish. Neck rigidity was noted by clearance cutter. Differentials include elevated intracranial pressure, meningitis/encephalitis, urinary tract infection, seizure. Lumbar puncture was performed in the ED for culture, opening pressure, VDRL and cell count. Patient was empirically started on vancomycin and Rocephin for treatment of meningitis. EEG was ordered and Patient will be admitted to ICU for further management. Patient mets sepsis criteria (tachycardic and with leukocytosis. Urinalysis showed large leukocyte esterase. Lactic acid was elevated at 3.1. Infectious diseases was consulted for further management. Urine culture and blood culture was obtained and pending. Case was discussed with ED physician Dr. Patino at the time of admission. Neurology evaluated the patient in the ED and recommends transfer for continuous EEG monitoring. I attempted to transfer the patient to [facility] for which patient was rejected for bed availability. We were able to transfer the patient overnight to [facility] for continuous EEG monitoring. Pertinent Studies: CXR Brain CT Patient Condition at Discharge: Serious Plan - Discharge Summary Discharge Rx Participant: No New Discharge Prescriptions: No Action hydrOXYzine HCL [Atarax] 50 mg PO TID PRN PRN Reason: anxiety/insomnia clonazePAM [KlonoPIN] 0.5 mg PO TID DULoxetine HCL [Cymbalta] 60 mg PO BID Ranitidine HCl [Zantac] 300 mg PO BID amLODIPine [Norvasc] 2.5 mg PO DAILY Lidocaine 5% Patch [Lidoderm] 1 patch TOPICAL DAILY Ferrous Sulfate [Feosol] 325 mg PO DAILY Albuterol Inhaler (Mhu) [Ventolin Hfa Inhaler] 2 puff INHALATION RT-Q4H PRN PRN Reason: Shortness Of Breath Gabapentin [Neurontin] 1,200 mg PO TID busPIRone HCL [Buspar] 30 mg PO BID Chlorzoxazone [Parafon Forte DSC] 500 mg PO TID PRN PRN Reason: Muscle Spasm Cyanocobalamin [Vitamin B-12 Injection] 1,000 mcg SQ Q28D Ergocalciferol [Vitamin D2] 50,000 unit PO Q7D Fluticasone/Salmeterol [Advair 250-50 Diskus] 2 puff INHALATION RT-BID Folic Acid 1 mg PO DAILY Lacosamide [Vimpat] 100 mg PO DAILY Meclizine [Antivert] 25 mg PO TID Metoclopramide [Reglan] 10 mg PO ACHS Mirtazapine 30 mg PO HS Pyridoxine HCl (Vitamin B6) [Pyridoxine HCl] 25 mg PO DAILY QUEtiapine FUMARATE 50 mg PO HS rOPINIRole HCL [Requip] 1 mg PO HS Topiramate [Trokendi Xr] 200 mg PO DAILY Zolpidem Tartrate [Ambien Cr] 12.5 mg PO HS PRN PRN Reason: Insomnia Discharge Medication List DULoxetine HCL [Cymbalta] 60 mg PO BID 10/29/17 [History] Ranitidine HCl [Zantac] 300 mg PO BID 10/29/17 [History] clonazePAM [KlonoPIN] 0.5 mg PO TID 10/29/17 [History] hydrOXYzine HCL [Atarax] 50 mg PO TID PRN 10/29/17 [History] Albuterol Inhaler (Mhu) [Ventolin Hfa Inhaler] 2 puff INHALATION RT-Q4H PRN 12/25/17 [History] Ferrous Sulfate [Feosol] 325 mg PO DAILY 12/25/17 [History] Gabapentin [Neurontin] 1,200 mg PO TID 12/25/17 [History] Lidocaine 5% Patch [Lidoderm] 1 patch TOPICAL DAILY 12/25/17 [History] amLODIPine [Norvasc] 2.5 mg PO DAILY 12/25/17 [History] Chlorzoxazone [Parafon Forte DSC] 500 mg PO TID PRN 11/25/19 [History] Cyanocobalamin [Vitamin B-12 Injection] 1,000 mcg SQ Q28D 11/25/19 [History] Ergocalciferol [Vitamin D2] 50,000 unit PO Q7D 11/25/19 [History] Fluticasone/Salmeterol [Advair 250-50 Diskus] 2 puff INHALATION RT-BID 11/25/19 [History] Folic Acid 1 mg PO DAILY 11/25/19 [History] Lacosamide [Vimpat] 100 mg PO DAILY 11/25/19 [History] Meclizine [Antivert] 25 mg PO TID 11/25/19 [History] Metoclopramide [Reglan] 10 mg PO ACHS 11/25/19 [History] Mirtazapine 30 mg PO HS 11/25/19 [History] Pyridoxine HCl (Vitamin B6) [Pyridoxine HCl] 25 mg PO DAILY 11/25/19 [History] QUEtiapine FUMARATE 50 mg PO HS 11/25/19 [History] Topiramate [Trokendi Xr] 200 mg PO DAILY 11/25/19 [History] Zolpidem Tartrate [Ambien Cr] 12.5 mg PO HS PRN 11/25/19 [History] busPIRone HCL [Buspar] 30 mg PO BID 11/25/19 [History] rOPINIRole HCL [Requip] 1 mg PO HS 11/25/19 [History] Follow up Appointment(s)/Referral(s): Elena Fuentes MD [Primary Care Provider] - 1-2 days Discharge Disposition: HOME SELF-CARE
== END 2019-11-26 01:11 | disposition home or self-care (01) | DRG 872 ==
LOC: EC 10:53 → 3SCARD 11:41 → 2SICU 12:53
PROVIDERS: ADMIT Family Medicine; ATTEND Family Medicine
PROC: 009U3ZX Drainage of Spinal Canal, Percutaneous Approach, Diagnostic (ICD-10-PCS; principal; 2019-11-25)
DX: A41.9 Sepsis, unspecified organism (principal); N39.0 Urinary tract infection, site not specified; E87.4 Mixed disorder of acid-base balance; E86.0 Dehydration; F17.200 Nicotine dependence, unspecified, uncomplicated; F41.9 Anxiety disorder, unspecified; K21.9 Gastro-esophageal reflux disease without esophagitis; R41.82 Altered mental status, unspecified; M79.7 Fibromyalgia; I73.00 Raynaud's syndrome without gangrene; E87.6 Hypokalemia; G40.909 Epilepsy, unspecified, not intractable, without status epilepticus; Z11.59 Encounter for screening for other viral diseases; Z90.710 Acquired absence of both cervix and uterus; Z91.14 Patient's other noncompliance with medication regimen; Z82.49 Family history of ischemic heart disease and other diseases of the circulatory system; Z79.899 Other long term (current) drug therapy; Z88.6 Allergy status to analgesic agent; Z88.0 Allergy status to penicillin; Z88.8 Allergy status to other drugs, medicaments and biological substances; Z90.49 Acquired absence of other specified parts of digestive tract; Z98.890 Other specified postprocedural states; Z80.8 Family history of malignant neoplasm of other organs or systems
CPT/HCPCS: 36600; 62270; 70450; 71045; 80053; 81001; 82550; 82805; 82945; 83605; 84157; 84484; 85025; 86592; 87040; 87070; 87086; 87205; 89050; 93005; 94002; 94003; 96361; 96365; 99291

== ENCOUNTER → 2021-06-06 | Outpatient (CLI) | payer OTHER ==
--- NOTE | 2021-06-06 15:58 | US ---
EXAMINATION TYPE: US kidneys/renal and bladder DATE OF EXAM: 06/06/2021 COMPARISON: NONE CLINICAL HISTORY: N31.9 NEUROGENIC BLADDER. EXAM MEASUREMENTS: Right Kidney: 11.1 x 5.0 x 4.2 cm Left Kidney: 8.4 x 5.0 x4.6 cm Right Kidney: No hydronephrosis or masses seen Left Kidney: No hydronephrosis or masses seen Bladder: not distended, whitten catheter seen within There is no evidence for hydronephrosis at this point in time. Increased cortical echogenicity bilate rally. Cortical thinning and diminished size to left kidney. No nephrolithiasis is seen. No masses a re identified. Whitten catheter decompresses bladder. Limited exam due to patient mobility IMPRESSION: No hydronephrosis seen bilaterally.
== END | disposition home or self-care (01) ==
LOC: RADUSWWP 15:27
PROVIDERS: ATTEND Urology
DX: N31.9 Neuromuscular dysfunction of bladder, unspecified (principal)
CPT/HCPCS: 76770

== ENCOUNTER 2024-01-05 17:51 | Inpatient (IN) | payer OTHER ==
--- NOTE | 2024-01-05 18:25 | ED ---
General Adult HPI - General Stated complaint: AMS Time Seen by Provider: 01/05/24 17:52 Source: patient, RN/MD, EMS, RN notes reviewed Mode of arrival: EMS Limitations: no limitations - History of Present Illness Initial comments: Patient is a 38-year-old female presenting as a transfer from [facility] with concern for dehydration and urinary tract infection. Patient originally had some mild change in mental status and decreased oral intake similar to previous urinary tract infection. Patient is reported to me as nonverbal. Patient is able to state her name however there further history from the patient is limited. Chart reviewed. Patient was found to have urinary tract infection and YARELIS. Patient was given Rocephin. - Related Data Home Medications Medication Instructions Recorded Confirmed clonazePAM [KlonoPIN] 0.5 mg PO TID 10/29/17 07/19/21 Ferrous Sulfate [Feosol] 325 mg PO DAILY 12/25/17 07/19/21 Gabapentin [Neurontin] 1,200 mg PO TID 12/25/17 07/19/21 Cyanocobalamin [Vitamin B-12 1,000 mcg SQ Q28D 11/25/19 07/19/21 Injection] Ergocalciferol [Vitamin D2] 50,000 unit PO WALTON 11/25/19 07/19/21 Folic Acid 1 mg PO DAILY 11/25/19 07/19/21 Pyridoxine HCl (Vitamin B6) 25 mg PO DAILY 11/25/19 07/19/21 [Pyridoxine HCl] QUEtiapine FUMARATE 50 mg PO HS 11/25/19 07/19/21 Topiramate [Trokendi Xr] 200 mg PO DAILY 11/25/19 07/19/21 Zolpidem Tartrate [Ambien Cr] 12.5 mg PO HS PRN 11/25/19 07/19/21 busPIRone HCL [Buspar] 30 mg PO BID 11/25/19 07/19/21 Fludrocortisone [Florinef] 0.1 mg PO BID 07/19/21 Allergies Allergy/AdvReac Type Severity Reaction Status Date / Time levetiracetam [From [facility]] Allergy Rash/Hives Verified 07/19/21 15:27 Penicillins Allergy "STOPPED Verified 07/19/21 15:27 BREATHING" NSAIDS (Non-Steroidal AdvReac "MAY CAUSE Verified 07/19/21 15:27 Anti-Inflamma ULCERS R/T BARIATRIC SX" Review of Systems ROS Statement: Those systems with pertinent positive or pertinent negative responses have been documented in the HPI. Limitations: ROS unobtainable due to patients medical condition Past Medical History Past Medical History: Fibromyalgia, GERD/Reflux, Pneumonia, Seizure Disorder Additional Past Medical History / Comment(s): has seizures on a daily basis one or more a day, cHRONIC NECK/BACK PAIN, N/T FINGERS AND TOES, RAYNAUDS SYN. MENIERE'S,tinnitus, past uterine prolpase(sx) IBS, MUSCLE WEAKNESS, USES WALKER OR W/C History of Any Multi-Drug Resistant Organisms: ESBL, MRSA Date of last positivie culture/infection: 08/18/22 MRSA; 05/16/21 ESBL MDRO Source:: Urine MRSA; Urine ESBL Past Surgical History: Bariatric Surgery, Cholecystectomy, Hysterectomy Additional Past Surgical History / Comment(s): EYE SX (MUSCLES), radha en y 2012 Past Anesthesia/Blood Transfusion Reactions: No Reported Reaction Additional Past Anesthesia/Blood Transfusion Reaction / Comment(s): clausterphobia Past Psychological History: Anxiety Past Alcohol Use History: None Reported Additional Past Alcohol Use History / Comment(s): started smoking age 13- has quit off and on but currently smokes 1/2 ppd. Past Drug Use History: None Reported, Marijuana Additional Drug Use History / Comment(s): medical marijuana carrier, has not smoked kentrell rubi in a month - Past Family History Mother Family Medical History: Cancer Additional Family Medical History / Comment(s): TONGUE Father Family Medical History: Hypertension General Exam Limitations: no limitations General appearance: alert, in no apparent distress Head exam: Present: atraumatic Eye exam: Present: normal appearance ENT exam: Present: mucous membranes dry Neck exam: Present: normal inspection. Absent: meningismus Respiratory exam: Present: normal lung sounds bilaterally Cardiovascular Exam: Present: regular rate, normal rhythm GI/Abdominal exam: Present: soft. Absent: tenderness Extremities exam: Present: other (Spasticity bilateral hands and feet) Neurological exam: Present: alert Expanded Neurological exam: Present: protecting the airway Patient oriented to: Present: person Psychiatric exam: Present: flat affect Skin exam: Present: normal color Medical Decision Making - Medical Decision Making Was pt. sent in by a medical professional or institution (Dr., PA, CRAFT DEMONSTRATOR, urgent care, hospital, or fpc...) When possible be specific @ -Patient was transferred from [facility] Did you speak to anyone other than the patient for history (EMS, parent, family, police, friend...)? What history was obtained from this source @ -I did speak with transferring physician Dr. marmolejo, as well as EMS Did you review nursing and triage notes (agree or disagree)? Why? @ -I reviewed and agree with nursing and triage notes Were old charts reviewed (outside hosp., previous admission, EMS record, old EKG, old radiological studies, urgent care reports/EKG's, fpc records)? Report findings @ -Chart reviewed from [facility] Differential Diagnosis (chest pain, altered mental status, abdominal pain women, abdominal pain men, vaginal bleeding, weakness, fever, dyspnea, syncope, headache, dizziness, GI bleed, back pain, seizure, CVA, palpatations, mental health, musculoskeletal)? @ -Differential Weakness: Hypoglycemia, shock, sepsis, hyponatremia, anemia, infection, LA, ETOH, adverse medicine reaction, overdose, stroke, this is not meant to be an all-inclusive list. EKG interpreted by me (3pts min.). @ -As above X-rays interpreted by me (1pt min.). @ -None done CT interpreted by me (1pt min.). @ -None done U/S interpreted by me (1pt. min.). @ -None done What testing was considered but not performed or refused? (CT, X-rays, U/S, labs)? Why? @ -None What meds were considered but not given or refused? Why? @ -None Did you discuss the management of the patient with other professionals (professionals i.e. EDGAR Silverman, CRAFT DEMONSTRATOR, lab, RT, psych nurse, social services counselor, design engineer agricultural equipment, teacher, resident medical officer, case managers)? Give summary @ -Case discussed with [facility], Dr. Lim who will admit covering hospital call Was smoking cessation discussed for >3mins.? @ -No Was critical care preformed (if so, how long)? @ -No Were there social determinants of health that impacted care today? How? (Homelessness, low income, unemployed, alcoholism, drug addiction, transportation, low edu. Level, literacy, decrease access to med. care, halfway, rehab)? @ -No Was there de-escalation of care discussed even if they declined (Discuss DNR or withdrawal of care, Hospice)? DNR status @ -No What co-morbidities impacted this encounter? (DM, HTN, Smoking, COPD, CAD, Cancer, CVA, ARF, Chemo, Hep., AIDS, mental health diagnosis, sleep apnea, morbid obesity)? @ -History of chronic encephalopathy Was patient admitted / discharged? Hospital course, mention meds given and route, prescriptions, significant lab abnormalities, going to OR and other pertinent info. @ -Patient presents as a transfer for acute kidney injury and urinary tract infection for level of care. Patient will be admitted. Admission orders written. Undiagnosed new problem with uncertain prognosis? @ -No Drug Therapy requiring intensive monitoring for toxicity (Heparin, Nitro, Insulin, Cardizem)? @ -No Were any procedures done? @ -No Diagnosis/symptom? @ -Acute kidney injury, urinary tract infect Acute, or Chronic, or Acute on Chronic? @ -Acute, acute Uncomplicated (without systemic symptoms) or Complicated (systemic symptoms)? @ -Complicated with change in mental state Side effects of treatment? @ -No Exacerbation, Progression, or Severe Exacerbation? @ -No Poses a threat to life or bodily function? How? (Chest pain, USA, LA, pneumonia, PE, COPD, DKA, ARF, appy, cholecystitis, CVA, Diverticulitis, Homicidal, Suicidal, threat to staff... and all critical care pts) @ -No Disposition Clinical Impression: UTI (urinary tract infection), YARELIS (acute kidney injury) Disposition: ADMITTED IP TO THIS HOSP Is patient prescribed a controlled substance at d/c from ED?: No Referrals: Kyler Whalen MD [Primary Care Provider] - 1-2 days Time of Disposition: 18:25
[2024-01-05] MEDS ORDERED: NALOXONE 0.4 MG/ML 1 ML VIAL IV PRN (18:26)
[2024-01-05] MEDS: SODIUM CHLORIDE 0.9% 1,000 ML IV SCH (19:04)
[2024-01-05] MEDS: SODIUM CHLORIDE 0.9% 1,000 ML IV STA (19:25)
[2024-01-05] MEDS: SODIUM CHLORIDE 0.9% 500 ML 500 ML IV STA (20:09)
--- NOTE | 2024-01-05 22:16 | ED ---
Medical Decision Making - Medical Decision Making Patient had decreasing blood pressure despite IV fluid bolus. Patient had 1500 cc fluid bolus. Central line placed, see procedure note. Levophed will be started. Case discussed with Dr. Morris, who will consult for critical care. Patient will go to ICU. Total critical care time 33 minutes Chest x-ray interpreted by myself shows central line in position. No evidence of pneumothorax. Concern for right lower lobe infiltrate. Additional IV antibiotics will be added Critical Care Time Critical Care Time: Yes Total Critical Care Time: 33 Disposition Clinical Impression: UTI (urinary tract infection), YARELIS (acute kidney injury) Disposition: ADMITTED IP TO THIS HOSP Is patient prescribed a controlled substance at d/c from ED?: No Procedures - Central Line Placement Right SC Consent Obtained: written consent, emergent situation Patient Placed on Monitor/Pulse Ox: Yes MD Prep: mask, gown, gloves Central Line Prep: Povidone-Iodine 1% Local Anesthesia Used: Lidocaine 1% Amount of Anesthesia Used (mls): 2 Ultrasound Used for Placement: No Central Line Lumen Inserted: triple Bloods Obtained for Lab: No Central Line Position: good blood return, all ports aspirated, flushed, capped, sutured in place with 3-0 nylon Dressing Applied: Tegaderm Patient Tolerated Procedure: well, no complications Complications: none Right Femoral Consent Obtained: written consent, emergent situation Patient Placed on Monitor/Pulse Ox: Yes MD Prep: mask, gown, gloves Central Line Prep: Povidone-Iodine 1% Local Anesthesia Used: Lidocaine 1% Amount of Anesthesia Used (mls): 2 Ultrasound Used for Placement: No Complications: other (Guidewire unable to pass) Left Femoral Consent Obtained: verbal consent, emergent situation MD Prep: mask, gown, gloves Central Line Prep: Povidone-Iodine 1% Local Anesthesia Used: Lidocaine 1% Amount of Anesthesia Used (mls): 2 Ultrasound Used for Placement: No Complications: arterial puncture/cannulation (Femoral artery puncture with hematoma. Pressure was held for 10 minutes then pressure dressing placed. Reevaluated and no expanding hematoma.)
[2024-01-05] MEDS: FAMOTIDINE 20 MG TAB PO SCH (22:37)
[2024-01-05] MEDS: NOREPINEPHRINE 32 MG in SODIUM CHLORIDE 0.9% 218 ML IV SCH (22:59)
[2024-01-06 00:02] LABS: Glucose,Whole Blood 91 mg/dL (70-110)
[2024-01-06] MEDS ORDERED: Magnesium Replacement Protocol 1 EACH MISC MISCELLANE PRN (00:13)
[2024-01-06] MEDS ORDERED: Potassium Replacement Protocol 1 EACH MISC MISCELLANE PRN (00:13)
--- NOTE | 2024-01-06 00:45 | XR ---
EXAM: XR Chest, 1 View CLINICAL HISTORY: ITS.REASON XR Reason: line TECHNIQUE: Frontal view of the chest. COMPARISON: No relevant prior studies available. FINDINGS: Lungs: RIGHT perihilar and LEFT lung base opacities, concerning for pneumonia. Pleural space: Unremarkable. No pneumothorax. Heart: Cardiomegaly. Mediastinum: Unremarkable. Normal mediastinal contour. Bones/joints: Unremarkable. No acute fracture. Tubes, lines and devices: RIGHT PICC line terminates in the RIGHT atrium. IMPRESSION: RIGHT perihilar and LEFT lung base opacities, concerning for pneumonia.
[2024-01-06] MEDS: HYDROCORTISONE SUCCINATE 100 MG/2 ML VIAL IV STA (01:27)
[2024-01-06] MEDS: AZITHROMYCIN 500 MG in SODIUM CHLORIDE 0.9% 250 ML IVPB SCH (01:52)
[2024-01-06] MEDS: NOREPINEPHRINE 4 MG in SODIUM CHLORIDE 0.9% 250 ML IV SCH (01:57)
[2024-01-06 02:16] LABS: Basophils % (A) 0 %; Eosinophils % (A) 0 %; HCT 35.5 % (34.0-46.0); Hypochromasia Marked; Lymphocytes # (A) 0.2 k/uL (1.0-4.8); Lymphocytes % (A) 5 %; MCH 29.9 pg (25.0-35.0); MCV 96.2 fL (80.0-100.0); Mean Platelet Volume 8.6; Monocytes # (A) 0.1 k/uL (0-1.0); Monocytes % (A) 3 %; Neutrophils % (A) 91 %; RBC 3.69 m/uL (3.80-5.40); RDW 14.5 % (11.5-15.5); WBC 4.4 k/uL (3.8-10.6)
[2024-01-06 02:17] LABS: ALT 262 U/L (4-34); AST 68 U/L (14-36); African American GFR (CKD) 43 (>60 ml/min/1.73 sqM); Albumin 2.6 g/dL (3.5-5.0); Alkaline Phosphatase 530 U/L (38-126); Anion Gap 14 mmol/L; Blood Urea Nitrogen 54 mg/dL (7-17); Calcium 7.1 mg/dL (8.4-10.2); Chloride 125 mmol/L (98-107); Glucose 95 mg/dL (74-99); Magnesium 2.9 mg/dL (1.6-2.3); Non-African American GFR(CKD) 38 (>60 ml/min/1.73 sqM); Sodium 147 mmol/L (137-145); Total Bilirubin 0.6 mg/dL (0.2-1.3); Total Protein 4.8 g/dL (6.3-8.2)
[2024-01-06 02:39] LABS: Appearance,Urine Cloudy (Clear); Bacteria,Urine Occasional /hpf; Bilirubin,Urine Negative (Negative); Blood,Urine Moderate (Negative); Color,Urine Light Yellow; Glucose,Urine (UA) Negative (Negative); Hyaline Casts,Urine 3 /lpf (0-2); Ketones,Urine Trace (Negative); Leukocyte Esterase,Urine Large (Negative); Mucus,Urine Rare /hpf; Nitrite,Urine Negative (Negative); PH, Urine 6.5 (5.0-8.0); Protein,Urine 2+ (Negative); RBC,Urine >182 /hpf (0-5); Specific Gravity,Urine 1.015 (1.001-1.035); Squamous Epithelial Cell,Urine 1 /hpf (0-4); Urobilinogen,Urine <2.0 mg/dL (<2.0); WBC,Urine >182 /hpf (0-5)
[2024-01-06 02:45] LABS: Carbon Dioxide 8 mmol/L (22-30)
[2024-01-06 03:29] LABS: Poikilocytosis (M) Present
[2024-01-06 03:30] LABS: Platelet Count 97 k/uL (150-450)
[2024-01-06] MEDS: POTASSIUM CHLORIDE 20 MEQ in WATER FOR INJECTION 1 100ML.BAG IVPB SCH (05:17)
[2024-01-06 06:45] LABS: ALT 237 U/L (4-34); AST 63 U/L (14-36); African American GFR (CKD) 41 (>60 ml/min/1.73 sqM); Albumin 2.6 g/dL (3.5-5.0); Alkaline Phosphatase 491 U/L (38-126); Anion Gap 16 mmol/L; Blood Urea Nitrogen 51 mg/dL (7-17); Calcium 7.1 mg/dL (8.4-10.2); Chloride 126 mmol/L (98-107); Glucose 91 mg/dL (74-99); Magnesium 2.8 mg/dL (1.6-2.3); Non-African American GFR(CKD) 36 (>60 ml/min/1.73 sqM); Sodium 150 mmol/L (137-145); Total Bilirubin 0.5 mg/dL (0.2-1.3); Total Protein 4.9 g/dL (6.3-8.2)
[2024-01-06 06:51] LABS: Carbon Dioxide 8 mmol/L (22-30)
--- NOTE | 2024-01-06 07:04 | XR ---
EXAMINATION TYPE: XR chest 1V DATE OF EXAM: 01/06/2024 5:00 AM CLINICAL INDICATION:Female, 38 years old with history of Respiratory follow up; [facility] COMPARISON: Chest radiograph from one day prior. TECHNIQUE: XR chest 1V Frontal view of the chest. FINDINGS: Lungs/Pleura: Represent right midlung airspace opacities. There is no evidence of pleural effusion, l eft focal consolidation, or pneumothorax. Pulmonary vascularity: Unremarkable. Heart/mediastinum: Cardiomediastinal silhouette is unremarkable. Musculoskeletal: No acute osseous pathology. Other findings: None Lines/Tubes: Right central venous catheter with distal tip at the cavoatrial junction. IMPRESSION: Similar appearance of the lung given differences in inspiration. There remains right basilar and righ t midlung airspace opacities.
[2024-01-06 07:55] LABS: HCT 34.8 % (34.0-46.0); HGB 10.9 gm/dL (11.4-16.0); Hypochromasia Marked; MCH 30.1 pg (25.0-35.0); MCHC 31.3 g/dL (31.0-37.0); MCV 96.3 fL (80.0-100.0); Mean Platelet Volume 8.6; RBC 3.61 m/uL (3.80-5.40); RDW 14.7 % (11.5-15.5); WBC 9.2 k/uL (3.8-10.6)
[2024-01-06 07:58] LABS: Platelet Count 98 k/uL (150-450)
[2024-01-06 08:29] LABS: Band Neutrophils % 6 %; Eosinophils # (M) 0.09 k/uL (0-0.7); Lymphocytes # (M) 0.18 k/uL (1.0-4.8); Monocytes # (M) 0.92 k/uL (0-1.0); Neutrophils % (M) 81 %; Nucleated Red Blood Cells 0 /100 WBC (0-0); Total Cells Counted 100
[2024-01-06] MEDS: HYDROCORTISONE SUCCINATE 100 MG/2 ML VIAL IV SCH (09:30)
[2024-01-06] MEDS: FAMOTIDINE 20 MG TAB PO SCH (09:45)
[2024-01-06] MEDS: GABAPENTIN 400 MG CAP PO SCH (09:46)
[2024-01-06] MEDS: MIDODRINE 5 MG TAB PO SCH (09:46)
[2024-01-06] MEDS: VENLAFAXINE HCL ER 150 MG CAP PO SCH (09:46)
[2024-01-06] MEDS: oxyCODONE-APAP 5-325MG 1 EACH TAB PO SCH (09:46)
[2024-01-06] MEDS: PYRIDOXINE 50 MG TAB PO SCH (09:46)
[2024-01-06] MEDS: TOPIRAMATE 25 MG TAB PO SCH (09:46)
[2024-01-06] MEDS: THIAMINE 100 MG TAB PO SCH (09:46)
[2024-01-06] MEDS: NON FORMULARY DRUG (Lubiprostone [Amitiza] 24 MCG Capsule) PO SCH (09:46)
[2024-01-06] MEDS: FLUDROCORTISONE 0.1 MG TAB PO SCH (09:46)
[2024-01-06] MEDS: OXYBUTYNIN 10 MG TAB.ER.24 PO SCH (09:46)
--- NOTE | 2024-01-06 10:19 | P.CNPUL ---
History of Present Illness Consult date: 01/06/24 Requesting physician: Earnest Velazquez Reason for consult: other Chief complaint: Sepsis, hypotension. History of present illness: Pulmonary consult dated January 06, 2024. 38-year-old female who presented from [facility] as a transfer, via EMS, for possible dehydration, urinary tract infection, and urosepsis. The patient was seen in the emergency department, by Dr. Braden Patino. He evaluated the patient, thought the patient likely had sepsis from a urinary source, and, place a central line, fluid resuscitated the patient, and placed the patient on norepinephrine. He called me about the patient, we excepted the patient into the intensive care unit, for further monitoring and management. Currently, she is on 4 L of oxygen by nasal cannula. She getting saline at 75 cc an hour. She received 1.5 L of saline in the emergency department. She is on Levophed, at 2.8 mcg/min. She continues on Zithromax and Rocephin. Will check a procalcitonin level and a cortisol level. As mentioned, she came from the [place] emergency department. White count 9.2, hemoglobin 10.9, hematocrit 34.8, platelet count 98,000. Sodium 150, potassium 3, chlorides 126, CO2 8, anion gap 16, BUN 51, creatinine 1.79. Calcium 7.1. Procalcitonin level 2.71. AST is 63. ALT is 237. N-terminal proBNP is 2410. Urine is cloudy, with moderate blood. Leukocyte esterase was large positive. Nitrite was negative. There is greater than 182 WBCs, many WBC clumps, and occasional bacteria noted. Chest x-ray shows right basilar and right midlung airspace opacities. This could be consistent with possible aspiration. Review of Systems REVIEW OF SYSTEMS: CONSTITUTIONAL: Weakness. NEUROLOGIC: [ Negative.] HEENT: [ Negative.] CARDIAC: Hypotension. PULMONARY: [Negative.] GI: [Negative.] : [Negative.] RHEUMATOLOGIC: [ Negative.] IMMUNOLOGIC: [ Negative.] ENDOCRINE: [Negative. ] DERMATOLOGIC: [Negative.] Past Medical History Past Medical History: Fibromyalgia, GERD/Reflux, Pneumonia, Seizure Disorder Additional Past Medical History / Comment(s): has seizures on a daily basis one or more a day, cHRONIC NECK/BACK PAIN, N/T FINGERS AND TOES, RAYNAUDS SYN. MENIERE'S,tinnitus, past uterine prolpase(sx) IBS, MUSCLE WEAKNESS, USES WALKER OR W/C History of Any Multi-Drug Resistant Organisms: ESBL, MRSA Date of last positivie culture/infection: 08/18/22 MRSA; 05/16/21 ESBL MDRO Source:: Urine MRSA; Urine ESBL Past Surgical History: Bariatric Surgery, Cholecystectomy, Hysterectomy Additional Past Surgical History / Comment(s): EYE SX (MUSCLES), radha en y 2012 Past Anesthesia/Blood Transfusion Reactions: No Reported Reaction Additional Past Anesthesia/Blood Transfusion Reaction / Comment(s): clausterphobia Past Psychological History: Anxiety, Depression Smoking Status: Current every day smoker Past Alcohol Use History: None Reported Additional Past Alcohol Use History / Comment(s): started smoking age 13- has quit off and on but currently smokes 1/2 ppd. Past Drug Use History: None Reported, Marijuana Additional Drug Use History / Comment(s): medical marijuana carrier, has not smoked kentrell rubi in a month - Past Family History Mother Family Medical History: Cancer Additional Family Medical History / Comment(s): TONGUE Father Family Medical History: Hypertension Medications and Allergies Home Medications Medication Instructions Recorded Confirmed Type Gabapentin [Neurontin] 1,200 mg PO TID 12/25/17 01/05/24 History QUEtiapine FUMARATE 50 mg PO HS 11/25/19 01/05/24 History Zolpidem Tartrate [Ambien Cr] 12.5 mg PO HS 11/25/19 01/05/24 History Fludrocortisone [Florinef] 0.1 mg PO BID 07/19/21 01/05/24 History Famotidine 40 mg PO HS 01/05/24 01/05/24 History Lubiprostone [Amitiza] 24 mcg PO BID 01/05/24 01/05/24 History Midodrine [ProAmatine] 5 mg PO TID 01/05/24 01/05/24 History Oxybutynin Chloride [oxyBUTYnin 10 mg PO DAILY 01/05/24 01/05/24 History chloride ER] Pyridoxine [Vitamin B-6] 50 mg PO DAILY 01/05/24 01/05/24 History Thiamine [Vitamin B-1] 100 mg PO DAILY 01/05/24 01/05/24 History Topiramate [Topamax] 50 mg PO TID 01/05/24 01/05/24 History Venlafaxine HCl [Effexor XR] 150 mg PO DAILY 01/05/24 01/05/24 History oxyCODONE-APAP 5-325MG [Percocet 1 tab PO QID 01/05/24 01/05/24 History 5-325 mg] Allergies Allergy/AdvReac Type Severity Reaction Status Date / Time levetiracetam [From [facility]] Allergy Rash/Hives Verified 01/05/24 18:40 Penicillins Allergy "STOPPED Verified 01/05/24 18:40 BREATHING" NSAIDS (Non-Steroidal AdvReac "MAY CAUSE Verified 01/05/24 18:40 Anti-Inflamma ULCERS R/T BARIATRIC SX" Physical Exam Osteopathic Statement: *. No significant issues noted on an osteopathic structural exam other than those noted in the History and Physical/Consult. Vitals: Vital Signs Temp Pulse Resp BP Pulse Ox 01/06/24 10:00 104 H 18 94/64 95 01/06/24 09:45 105 H 18 96/63 94 L 01/06/24 09:30 105 H 16 94/65 94 L 01/06/24 09:15 105 H 16 89/58 94 L 01/06/24 09:00 105 H 15 94/61 93 L 01/06/24 08:45 105 H 14 97/64 96 01/06/24 08:30 105 H 16 89/58 94 L 01/06/24 08:15 105 H 16 104/89 94 L 01/06/24 08:00 98.2 F 105 H 16 94/46 94 L 01/06/24 07:45 106 H 15 93/62 95 01/06/24 07:30 109 H 18 89/55 96 01/06/24 07:15 108 H 15 96/68 96 01/06/24 07:00 16 104/65 90 L 01/06/24 06:45 107 H 18 101/61 96 01/06/24 06:30 108 H 12 98/63 94 L 01/06/24 06:15 109 H 21 97/59 96 01/06/24 06:00 109 H 14 96/60 94 L 01/06/24 05:45 109 H 15 92/65 94 L 01/06/24 05:30 109 H 14 101/82 98 01/06/24 05:15 112 H 14 105/69 96 01/06/24 05:00 77/54 01/06/24 04:45 111 H 18 98/64 94 L 01/06/24 04:30 112 H 15 91/52 93 L 01/06/24 04:15 77/54 01/06/24 04:00 98 F 18 98/64 93 L 01/06/24 03:45 77/54 01/06/24 03:30 77/54 01/06/24 03:15 77/54 01/06/24 03:00 112 H 19 77/53 93 L 01/06/24 02:45 77/54 01/06/24 02:30 77/54 01/06/24 02:15 112 H 14 108/93 93 L 01/06/24 02:00 111 H 26 H 91/62 01/06/24 01:45 99 21 96/53 93 L 01/06/24 01:30 113 H 28 H 96/53 97 01/06/24 01:15 102 H 14 89/59 95 01/06/24 01:00 77/54 01/06/24 00:45 108 H 14 94 L 01/06/24 00:00 98.6 F 77/54 01/05/24 23:30 106 H 20 82/55 96 01/05/24 23:15 106 H 17 98/79 92 L 01/05/24 23:00 104 H 17 89/55 93 L 01/05/24 22:30 101 H 19 85/56 98 01/05/24 22:00 96 13 79/49 01/05/24 21:45 98 14 83/45 95 01/05/24 21:30 93 14 77/49 96 01/05/24 21:15 98 17 63/22 94 L 01/05/24 21:00 94 16 81/55 93 L 01/05/24 20:45 97 15 83/51 96 01/05/24 20:30 98 16 81/50 95 01/05/24 20:15 98 19 81/49 96 01/05/24 20:00 98 13 85/54 95 01/05/24 19:45 96 15 85/54 97 07/20/24 19:31 98.6 F 20 96 01/05/24 19:30 93 17 81/52 96 01/05/24 19:06 98.7 F 93 15 94/58 96 01/05/24 18:10 15 01/05/24 18:07 98.2 F 94 18 92/63 96 Intake and Output 01/05/24 01/06/24 01/06/24 22:59 06:59 14:59 Intake Total 795.278 719.652 Output Total 115 185 Balance 680.278 534.652 Intake: Intake, IV Titration 795.278 719.652 Amount Azithromycin 500 mg In 250 250 Sodium Chloride 0.9% 250 ml @ 250 mls/hr IVPB DAILY JACQUELIN Rx#:[id number] Norepinephrine 32 mg In 1.319 Sodium Chloride 0.9% 218 ml @ 0.03 MCG/KG/MIN 0. 663 mls/hr IV .Q24H JACQUELIN Rx#:[id number] Norepinephrine 4 mg In 68.959 19.652 Sodium Chloride 0.9% 250 ml @ 0.03 MCG/KG/MIN 5. 392 mls/hr IV .Q24H JACQUELIN Rx#:[id number] Potassium Chloride 20 meq 100 100 In Water For Injection 1 100ml.bag @ 50 mls/hr IVPB Q2H JACQUELIN Rx#: [id number] Sodium Chloride 0.9% 1, 375 300 000 ml @ 75 mls/hr IV . [id number] JACQUELIN Rx#:[id number] cefTRIAXone 1 gm In 50 Sodium Chloride 0.9% 50 ml @ 100 mls/hr IVPB Q12HR JACQUELIN Rx#:[id number] Output: Urine 115 185 Other: Voiding Method Indwelling Catheter Weight 47.174 kg No acute distress. Patient is aphasic. HEENT examination is grossly unremarkable. Mucous membranes are moist. No oral lesions. Neck supple. Full range of motion. No adenopathy thyromegaly or neck vein distention. Cardiovascular examination reveals regular rhythm rate. S1-S2 normal. No S3 or S4. No discernible murmur noted. Heart rate 104 bpm. Heart sounds are distant. Lungs reveal mostly clear breath sounds. Occasional rhonchi. No wheezes or crackles. 4 L saturation is 95%. Abdomen soft bowel sounds are heard. No masses or tenderness. Extremities are intact. No cyanosis clubbing or edema. Skin is without rash or lesion. Neurologic examination is difficult to assess as the patient does not speak. Results - Laboratory Findings CBC and BMP: 01/06/24 07:26 01/06/24 05:38 Abnormal lab findings: Abnormal Labs 01/06/24 01/06/24 01/06/24 00:57 00:57 02:05 RBC 3.69 L Hgb 11.0 L Plt Count 97 L Neutrophils # (Manual) Lymphocytes # 0.2 L Lymphocytes # (Manual) Sodium 147 H Potassium 3.0 L Chloride 125 H Carbon Dioxide 8 L* BUN 54 H Creatinine 1.71 H Calcium 7.1 L Magnesium 2.9 H AST 68 H ALT 262 H Alkaline Phosphatase 530 H Total Protein 4.8 L Albumin 2.6 L Procalcitonin Urine Appearance Cloudy H Urine Protein 2+ H Urine Ketones Trace H Urine Blood Moderate H Ur Leukocyte Esterase Large H Urine RBC >182 H Urine WBC >182 H Urine WBC Clumps Many H Urine Bacteria Occasional H Hyaline Casts 3 H Urine Mucus Rare H 01/06/24 01/06/24 01/06/24 05:38 05:38 07:26 RBC 3.61 L Hgb 10.9 L Plt Count 98 L Neutrophils # (Manual) 8.00 H Lymphocytes # Lymphocytes # (Manual) 0.18 L Sodium 150 H Potassium 3.0 L Chloride 126 H Carbon Dioxide 8 L* BUN 51 H Creatinine 1.79 H Calcium 7.1 L Magnesium 2.8 H AST 63 H ALT 237 H Alkaline Phosphatase 491 H Total Protein 4.9 L Albumin 2.6 L Procalcitonin 2.71 H Urine Appearance Urine Protein Urine Ketones Urine Blood Ur Leukocyte Esterase Urine RBC Urine WBC Urine WBC Clumps Urine Bacteria Hyaline Casts Urine Mucus - Diagnostic Findings Chest x-ray: image reviewed Assessment and Plan Assessment: Acute sepsis secondary to urinary source, with acute kidney injury. Hypotension, secondary to sepsis. Possible aspiration pneumonia. History of fibromyalgia. History of gastroesophageal reflux disease. History of pneumonia. History of seizure disorder. History of Raynaud's syndrome. Prior history of methicillin-resistant Staph aureus and ESBL infection. History of anxiety. Multiple other medical problems and comorbidities. Plan: Plan dated January 06, 2024. The patient is currently on azithromycin and Rocephin. Will check a procalcitonin level and a cortisol level. The patient did receive fluid resuscitation with saline 1.5 L. The patient is on 4 L nasal cannula. She is getting saline at 75 cc an hour. Will change of fluid from saline to D5W. Additional recommendations and suggestions are forthcoming. Prognosis is guarded. Time with Patient: Greater than 30
[2024-01-06] MEDS: LORazepam 2 MG/ML INJ IV ONE (11:01)
[2024-01-06] MEDS: DEXTROSE 5% IN WATER 1,000 ML IV SCH (11:02)
--- NOTE | 2024-01-06 13:53 | P.HPIM ---
History of Present Illness H&P Date: 01/06/24 History of present illness; 38-year-old female with past medical history significant for seizure disorder, history of fibromyalgia, GERD, pneumonia, Raynaud's, Mnire's disease, history of ESBL, MRSA who was transferred from [facility] via EMS for altered mental status, sepsis/UTI, and possible dehydration. In the ED patient was hypotensive, required IV fluids, was persistently hypotensive had a central line placed and required Levophed. Patient was later on transferred to ICU for formerly [facility] er evaluation and management. Patient is ANO x 0. Opening eyes to verbal stimuli, resisting eye opening and withdraws to touch. Patient currently on 4 L oxygen by nasal cannula, on IV fluids as unable to take p.o. intake due to altered mental status. Remains on Levophed. Patient is currently on Rocephin and azithromycin for concern of pneumonia and UTI. Patient home medication list shows patient takes fludrocortisone, currently on hydrocortisone. On initial presentation patient's white count was 9.2, hemoglobin 10.9, platelet 98,000. Patient has elevated sodium 150, potassium is 3, CO2 8, anion gap 16, BUN 50 and creatinine 1.79. Procalcitonin level 2.71. AST 63 ALT is 237. Urine was cloudy with moderate blood. Leukocyte esterase was positive. Many WBCs and occasional bacteria noted in the urine. Chest x-ray showed right basilar and right midlung airspace opacities. Patient noted to have crackles and gurgling, concern for aspiration. REVIEW OF SYSTEMS: Limited review of system due to altered mental status. PHYSICAL EXAMINATION: GENERAL: The patient is alert and oriented x0. HEENT: Pupils are round and equally reacting to light. EOMI. No scleral icterus. No conjunctival pallor. Normocephalic, atraumatic. No pharyngeal erythema. No thyromegaly. CARDIOVASCULAR: S1 and S2 present. No murmurs, rubs, or gallops. PULMONARY: + crackles ABDOMEN: SPC. Soft, nontender, nondistended, normoactive bowel sounds. No palpable organomegaly. MUSCULOSKELETAL: No joint swelling or deformity. EXTREMITIES: No cyanosis, clubbing, or pedal edema. NEUROLOGICAL: Limited, resist eye opening, withdraws to touch. SKIN: No rashes. Assessment and plan Septic shock requiring vasopressors: UTI: Aspiration pneumonia: History of MRSA and ESBL: Thrombocytopenia: Patient currently in the ICU, on Levophed, positive procalcitonin. High risk of aspiration Currently on Rocephin and azithromycin for aspiration pneumonia and UTI. Pulmonary following. Wean off oxygen as tolerated Aspiration precautions Seizure precautions IV fluids Solu-Cortef. Monitor vitals and labs. urology consulted for suprapubic catheter exchange. Infectious disease consult Hypernatremia: YARELIS: Secondary to dehydration Continue IV fluids Monitor sodium Continue IV fluids. Seizure disorder: History of seizure disorder on Topamax Allergic to Keppra Seizure precautions As needed Ativan Continue Topamax if patient able to take p.o. intake. Neurology consult. History of Mnire's disease: History of Raynaud's DVT prophylaxis. SCD, thrombocytopenia. Dictation was produced using [employer] dictation software. please excuse any grammatical, word or spelling errors. Past Medical History Past Medical History: Fibromyalgia, GERD/Reflux, Pneumonia, Seizure Disorder Additional Past Medical History / Comment(s): has seizures on a daily basis one or more a day, cHRONIC NECK/BACK PAIN, N/T FINGERS AND TOES, RAYNAUDS SYN. MENIERE'S,tinnitus, past uterine prolpase(sx) IBS, MUSCLE WEAKNESS, USES WALKER OR W/C History of Any Multi-Drug Resistant Organisms: ESBL, MRSA Date of last positivie culture/infection: 08/18/22 MRSA; 05/16/21 ESBL MDRO Source:: Urine MRSA; Urine ESBL Past Surgical History: Bariatric Surgery, Cholecystectomy, Hysterectomy Additional Past Surgical History / Comment(s): EYE SX (MUSCLES), radha en y 2012 Past Anesthesia/Blood Transfusion Reactions: No Reported Reaction Additional Past Anesthesia/Blood Transfusion Reaction / Comment(s): clausterphobia Past Psychological History: Anxiety, Depression Smoking Status: Current every day smoker Past Alcohol Use History: None Reported Additional Past Alcohol Use History / Comment(s): started smoking age 13- has quit off and on but currently smokes 1/2 ppd. Past Drug Use History: None Reported, Marijuana Additional Drug Use History / Comment(s): medical marijuana carrier, has not smoked kentrell rubi in a month - Past Family History Mother Family Medical History: Cancer Additional Family Medical History / Comment(s): TONGUE Father Family Medical History: Hypertension Medications and Allergies Home Medications Medication Instructions Recorded Confirmed Type Gabapentin [Neurontin] 1,200 mg PO TID 12/25/17 01/05/24 History QUEtiapine FUMARATE 50 mg PO HS 11/25/19 01/05/24 History Zolpidem Tartrate [Ambien Cr] 12.5 mg PO HS 11/25/19 01/05/24 History Fludrocortisone [Florinef] 0.1 mg PO BID 07/19/21 01/05/24 History Famotidine 40 mg PO HS 01/05/24 01/05/24 History Lubiprostone [Amitiza] 24 mcg PO BID 01/05/24 01/05/24 History Midodrine [ProAmatine] 5 mg PO TID 01/05/24 01/05/24 History Oxybutynin Chloride [oxyBUTYnin 10 mg PO DAILY 01/05/24 01/05/24 History chloride ER] Pyridoxine [Vitamin B-6] 50 mg PO DAILY 01/05/24 01/05/24 History Thiamine [Vitamin B-1] 100 mg PO DAILY 01/05/24 01/05/24 History Topiramate [Topamax] 50 mg PO TID 01/05/24 01/05/24 History Venlafaxine HCl [Effexor XR] 150 mg PO DAILY 01/05/24 01/05/24 History oxyCODONE-APAP 5-325MG [Percocet 1 tab PO QID 01/05/24 01/05/24 History 5-325 mg] Allergies Allergy/AdvReac Type Severity Reaction Status Date / Time levetiracetam [From [facility]] Allergy Rash/Hives Verified 01/05/24 18:40 Penicillins Allergy "STOPPED Verified 01/05/24 18:40 BREATHING" NSAIDS (Non-Steroidal AdvReac "MAY CAUSE Verified 01/05/24 18:40 Anti-Inflamma ULCERS R/T BARIATRIC SX" Physical Exam Vitals: Vital Signs Temp Pulse Resp BP Pulse Ox 01/06/24 13:00 116 H 19 101/53 97 01/06/24 12:45 112 H 18 108/75 97 01/06/24 12:30 113 H 17 97/66 98 01/06/24 12:15 113 H 16 101/63 98 01/06/24 12:00 113 H 16 87/56 98 07/21/24 11:45 116 H 16 96/64 97 01/06/24 11:30 118 H 20 109/64 96 01/06/24 11:15 120 H 25 H 93/57 95 01/06/24 11:00 122 H 18 109/69 96 01/06/24 10:45 121 H 26 H 114/68 93 L 01/06/24 10:30 130 H 26 H 92/70 93 L 01/06/24 10:15 104 H 18 88/59 96 01/06/24 10:00 104 H 18 94/64 95 01/06/24 09:45 105 H 18 96/63 94 L 01/06/24 09:30 105 H 16 94/65 94 L 01/06/24 09:15 105 H 16 89/58 94 L 01/06/24 09:00 105 H 15 94/61 93 L 01/06/24 08:45 105 H 14 97/64 96 01/06/24 08:30 105 H 16 89/58 94 L 01/06/24 08:15 105 H 16 104/89 94 L 01/06/24 08:00 98.2 F 105 H 16 94/46 94 L 01/06/24 07:45 106 H 15 93/62 95 01/06/24 07:30 109 H 18 89/55 96 01/06/24 07:15 108 H 15 96/68 96 01/06/24 07:00 16 104/65 90 L 01/06/24 06:45 107 H 18 101/61 96 01/06/24 06:30 108 H 12 98/63 94 L 01/06/24 06:15 109 H 21 97/59 96 01/06/24 06:00 109 H 14 96/60 94 L 01/06/24 05:45 109 H 15 92/65 94 L 01/06/24 05:30 109 H 14 101/82 98 01/06/24 05:15 112 H 14 105/69 96 01/06/24 05:00 77/54 01/06/24 04:45 111 H 18 98/64 94 L 01/06/24 04:30 112 H 15 91/52 93 L 01/06/24 04:15 77/54 01/06/24 04:00 98 F 18 98/64 93 L 01/06/24 03:45 77/54 01/06/24 03:30 77/54 01/06/24 03:15 77/54 01/06/24 03:00 112 H 19 77/53 93 L 01/06/24 02:45 77/54 01/06/24 02:30 77/54 01/06/24 02:15 112 H 14 108/93 93 L 01/06/24 02:00 111 H 26 H 91/62 01/06/24 01:45 99 21 96/53 93 L 01/06/24 01:30 113 H 28 H 96/53 97 01/06/24 01:15 102 H 14 89/59 95 01/06/24 01:00 77/54 01/06/24 00:45 108 H 14 94 L 01/06/24 00:00 98.6 F 77/54 01/05/24 23:30 106 H 20 82/55 96 01/05/24 23:15 106 H 17 98/79 92 L 01/05/24 23:00 104 H 17 89/55 93 L 01/05/24 22:30 101 H 19 85/56 98 01/05/24 22:00 96 13 79/49 01/05/24 21:45 98 14 83/45 95 01/05/24 21:30 93 14 77/49 96 01/05/24 21:15 98 17 63/22 94 L 01/05/24 21:00 94 16 81/55 93 L 01/05/24 20:45 97 15 83/51 96 01/05/24 20:30 98 16 81/50 95 01/05/24 20:15 98 19 81/49 96 01/05/24 20:00 98 13 85/54 95 01/05/24 19:45 96 15 85/54 97 01/05/24 19:31 98.6 F 20 96 01/05/24 19:30 93 17 81/52 96 01/05/24 19:06 98.7 F 93 15 94/58 96 01/05/24 18:10 15 01/05/24 18:07 98.2 F 94 18 92/63 96 Intake and Output 01/05/24 01/06/24 01/06/24 22:59 06:59 14:59 Intake Total 795.278 994.652 Output Total 115 345 Balance 680.278 649.652 Intake: Intake, IV Titration 795.278 994.652 Amount Azithromycin 500 mg In 250 250 Sodium Chloride 0.9% 250 ml @ 250 mls/hr IVPB DAILY JACQUELIN Rx#:[id number] Dextrose 5% in Water 1, 200 000 ml @ 100 mls/hr IV . Q10H JACQUELIN Rx#:[id number] Norepinephrine 32 mg In 1.319 Sodium Chloride 0.9% 218 ml @ 0.03 MCG/KG/MIN 0. 663 mls/hr IV .Q24H JACQUELIN Rx#:[id number] Norepinephrine 4 mg In 68.959 19.652 Sodium Chloride 0.9% 250 ml @ 0.03 MCG/KG/MIN 5. 392 mls/hr IV .Q24H JACQUELIN Rx#:[id number] Potassium Chloride 20 meq 100 100 In Water For Injection 1 100ml.bag @ 50 mls/hr IVPB Q2H JACQUELIN Rx#: [id number] Sodium Chloride 0.9% 1, 375 375 000 ml @ 75 mls/hr IV . [id number] JACQUELIN Rx#:[id number] cefTRIAXone 1 gm In 50 Sodium Chloride 0.9% 50 ml @ 100 mls/hr IVPB Q12HR JACQUELIN Rx#:[id number] Output: Urine 115 345 Other: Voiding Method Indwelling Catheter Weight 47.174 kg Results CBC & Chem 7: 01/06/24 07:26 01/06/24 05:38 Labs: Abnormal Lab Results - Last 24 Hours (Table) 01/06/24 01/06/24 01/06/24 Range/Units 00:57 00:57 02:05 RBC 3.69 L (3.80-5.40) m/uL Hgb 11.0 L (11.4-16.0) gm/dL Plt Count 97 L (150-450) k/uL Neutrophils # (Manual) (1.3-7.7) k/uL Lymphocytes # 0.2 L (1.0-4.8) k/uL Lymphocytes # (Manual) (1.0-4.8) k/uL Sodium 147 H (137-145) mmol/L Potassium 3.0 L (3.5-5.1) mmol/L Chloride 125 H (98-107) mmol/L Carbon Dioxide 8 L* (22-30) mmol/L BUN 54 H (7-17) mg/dL Creatinine 1.71 H (0.52-1.04) mg/dL Calcium 7.1 L (8.4-10.2) mg/dL Magnesium 2.9 H (1.6-2.3) mg/dL AST 68 H (14-36) U/L ALT 262 H (4-34) U/L Alkaline Phosphatase 530 H (38-126) U/L Total Protein 4.8 L (6.3-8.2) g/dL Albumin 2.6 L (3.5-5.0) g/dL Procalcitonin (0.02-0.09) ng/mL Urine Appearance Cloudy H (Clear) Urine Protein 2+ H (Negative) Urine Ketones Trace H (Negative) Urine Blood Moderate H (Negative) Ur Leukocyte Esterase Large H (Negative) Urine RBC >182 H (0-5) /hpf Urine WBC >182 H (0-5) /hpf Urine WBC Clumps Many H (None) /hpf Urine Bacteria Occasional H (None) /hpf Hyaline Casts 3 H (0-2) /lpf Urine Mucus Rare H (None) /hpf 01/06/24 01/06/24 01/06/24 Range/Units 05:38 05:38 07:26 RBC 3.61 L (3.80-5.40) m/uL Hgb 10.9 L (11.4-16.0) gm/dL Plt Count 98 L (150-450) k/uL Neutrophils # (Manual) 8.00 H (1.3-7.7) k/uL Lymphocytes # (1.0-4.8) k/uL Lymphocytes # (Manual) 0.18 L (1.0-4.8) k/uL Sodium 150 H (137-145) mmol/L Potassium 3.0 L (3.5-5.1) mmol/L Chloride 126 H (98-107) mmol/L Carbon Dioxide 8 L* (22-30) mmol/L BUN 51 H (7-17) mg/dL Creatinine 1.79 H (0.52-1.04) mg/dL Calcium 7.1 L (8.4-10.2) mg/dL Magnesium 2.8 H (1.6-2.3) mg/dL AST 63 H (14-36) U/L ALT 237 H (4-34) U/L Alkaline Phosphatase 491 H (38-126) U/L Total Protein 4.9 L (6.3-8.2) g/dL Albumin 2.6 L (3.5-5.0) g/dL Procalcitonin 2.71 H (0.02-0.09) ng/mL Urine Appearance (Clear) Urine Protein (Negative) Urine Ketones (Negative) Urine Blood (Negative) Ur Leukocyte Esterase (Negative) Urine RBC (0-5) /hpf Urine WBC (0-5) /hpf Urine WBC Clumps (None) /hpf Urine Bacteria (None) /hpf Hyaline Casts (0-2) /lpf Urine Mucus (None) /hpf
[2024-01-06] MEDS: PANTOPRAZOLE 40 MG/10 ML VIAL IVP SCH (14:41)
[2024-01-06] MEDS: MORPHINE SULFATE 2 MG/ML SYRINGE IVP PRN (17:00)
--- NOTE | 2024-01-06 17:10 | US ---
EXAMINATION TYPE: US kidneys/renal and bladder DATE OF EXAM: 01/06/2024 COMPARISON: 06/06/21 CLINICAL INDICATION: Female, 38 years old with history of UTI, Neurogenic Bladder; UTI, neurogenic bl adder ICU patient, uncooperative. Exam is limited EXAM MEASUREMENTS: Right Kidney: 9.7 x 5.5 x 5.8 cm Left Kidney: 9.9 x 4.6 x 4.8 cm Right Kidney: No hydronephrosis or masses seen Left Kidney: No hydronephrosis or masses seen Bladder: suprapubic whitten in place Bilateral Jets seen: No There is no evidence for hydronephrosis at this point in time. No nephrolithiasis is seen. No mónica s are identified. The urinary bladder is anechoic. Bilateral ureteral jets are seen. IMPRESSION: Suprapubic Whitten catheter in place. No evidence for obstructive uropathy.
[2024-01-06] MEDS: ZOLPIDEM 5 MG TAB PO SCH (19:28)
[2024-01-06] MEDS: QUEtiapine 50 MG TAB PO SCH (19:28)
[2024-01-06] MEDS ORDERED: FAMOTIDINE 20 MG TAB PO SCH (21:00)
[2024-01-07 06:35] LABS: Basophils % (A) 0 %; Eosinophils % (A) 0 %; HCT 34.3 % (34.0-46.0); HGB 10.7 gm/dL (11.4-16.0); Hypochromasia Marked; Lymphocytes # (A) 0.5 k/uL (1.0-4.8); Lymphocytes % (A) 5 %; MCH 29.5 pg (25.0-35.0); MCHC 31.2 g/dL (31.0-37.0); MCV 94.5 fL (80.0-100.0); Mean Platelet Volume 8.4; Monocytes # (A) 0.2 k/uL (0-1.0); Monocytes % (A) 2 %; Neutrophils % (A) 92 %; Platelet Count 117 k/uL (150-450); RBC 3.63 m/uL (3.80-5.40); RDW 15.1 % (11.5-15.5); WBC 9.7 k/uL (3.8-10.6)
[2024-01-07 06:49] LABS: African American GFR (CKD) 64 (>60 ml/min/1.73 sqM); Anion Gap 9 mmol/L; Blood Urea Nitrogen 37 mg/dL (7-17); Calcium 7.2 mg/dL (8.4-10.2); Carbon Dioxide 10 mmol/L (22-30); Chloride 125 mmol/L (98-107); Glucose 300 mg/dL (74-99); Non-African American GFR(CKD) 55 (>60 ml/min/1.73 sqM); Sodium 144 mmol/L (137-145)
[2024-01-07 06:56] LABS: Potassium 2.7 mmol/L (3.5-5.1)
[2024-01-07 07:06] LABS: Glucose,Whole Blood 325 mg/dL (70-110)
[2024-01-07] MEDS: POTASSIUM CHLORIDE 20 MEQ in WATER FOR INJECTION 1 100ML.BAG IVPB SCH ×2 (07:13→21:06)
[2024-01-07] MEDS ORDERED: FAMOTIDINE 20 MG/2 ML VIAL IV SCH (09:00)
--- NOTE | 2024-01-07 10:24 | P.GSCN ---
History of Present Illness Consult date: 01/07/24 History of present illness: 38 yo female with multiple mdical issues. SHe was transferred from [place] because of a uti with sepsis. She has a chronic sp tube. SHe has had increasing problems with the tube obstructing with debris. We are consulted to assess and change the tube. An us didnt show any hydronephrosis. The patient is scheduled to have a cystectomy and ileal loop at [facility] in january because of the increasing mechanical problems with the tube. The tube was last changed 1 week ago per the \\nursing staff. The catheter has been leaking around in the ins ertion site. The patient cannot give much information. Review of Systems ROS unobtainable: due to mental status - Constitutional Denies fever, Denies weight loss - EENT Eyes: denies blurred vision - Gastrointestinal Reports as per HPI Past Medical History Past Medical History: Fibromyalgia, GERD/Reflux, Pneumonia, Seizure Disorder Additional Past Medical History / Comment(s): has seizures on a daily basis one or more a day, cHRONIC NECK/BACK PAIN, N/T FINGERS AND TOES, RAYNAUDS SYN. MENIERE'S,tinnitus, past uterine prolpase(sx) IBS, MUSCLE WEAKNESS, USES WALKER OR W/C History of Any Multi-Drug Resistant Organisms: ESBL, MRSA Year Discovered:: 08/18/22 MRSA; 05/16/21 ESBL MDRO Source:: Urine MRSA; Urine ESBL Past Surgical History: Bariatric Surgery, Cholecystectomy, Hysterectomy Additional Past Surgical History / Comment(s): EYE SX (MUSCLES), radha en y 2012 Past Anesthesia/Blood Transfusion Reactions: No Reported Reaction Additional Past Anesthesia/Blood Transfusion Reaction / Comm: clausterphobia Past Psychological History: Anxiety, Depression Smoking Status: Current every day smoker Past Alcohol Use History: None Reported Additional Past Alcohol Use History / Comment(s): started smoking age 13- has quit off and on but currently smokes 1/2 ppd. Past Drug Use History: None Reported, Marijuana Additional Drug Use History / Comment(s): medical marijuana carrier, has not smoked kentrell rubi in a month - Past Family History Mother Family Medical History: Cancer Additional Family Medical History / Comment(s): TONGUE Father Family Medical History: Hypertension Medications and Allergies Home Medications Medication Instructions Recorded Confirmed Type Gabapentin [Neurontin] 1,200 mg PO TID 12/25/17 01/05/24 History QUEtiapine FUMARATE 50 mg PO HS 11/25/19 01/05/24 History Zolpidem Tartrate [Ambien Cr] 12.5 mg PO HS 11/25/19 01/05/24 History Fludrocortisone [Florinef] 0.1 mg PO BID 07/19/21 01/05/24 History Famotidine 40 mg PO HS 01/05/24 01/05/24 History Lubiprostone [Amitiza] 24 mcg PO BID 01/05/24 01/05/24 History Midodrine [ProAmatine] 5 mg PO TID 01/05/24 01/05/24 History Oxybutynin Chloride [oxyBUTYnin 10 mg PO DAILY 01/05/24 01/05/24 History chloride ER] Pyridoxine [Vitamin B-6] 50 mg PO DAILY 01/05/24 01/05/24 History Thiamine [Vitamin B-1] 100 mg PO DAILY 01/05/24 01/05/24 History Topiramate [Topamax] 50 mg PO TID 01/05/24 01/05/24 History Venlafaxine HCl [Effexor XR] 150 mg PO DAILY 01/05/24 01/05/24 History oxyCODONE-APAP 5-325MG [Percocet 1 tab PO QID 01/05/24 01/05/24 History 5-325 mg] Allergies Allergy/AdvReac Type Severity Reaction Status Date / Time levetiracetam [From [facility]] Allergy Rash/Hives Verified 01/05/24 18:40 Penicillins Allergy "STOPPED Verified 01/05/24 18:40 BREATHING" NSAIDS (Non-Steroidal AdvReac "MAY CAUSE Verified 01/05/24 18:40 Anti-Inflamma ULCERS R/T BARIATRIC SX" Surgical - Exam Vital Signs Temp Pulse Resp BP Pulse Ox 98.2 F 94 18 92/63 96 01/05/24 18:07 01/05/24 18:07 01/05/24 18:07 01/05/24 18:07 01/05/24 18:07 - General lethargic well developed, chronically ill - Genitourinary suprapubic tube with a wet dressing Results - Labs 01/07/24 05:59 01/07/24 05:59 Abnormal Lab Results - Last 24 Hours (Table) 01/06/24 01/06/24 01/06/24 Range/Units 05:38 05:38 07:26 RBC 3.61 L (3.80-5.40) m/uL Hgb 10.9 L (11.4-16.0) gm/dL Plt Count 98 L (150-450) k/uL Neutrophils # (1.3-7.7) k/uL Neutrophils # (Manual) 8.00 H (1.3-7.7) k/uL Lymphocytes # (1.0-4.8) k/uL Lymphocytes # (Manual) 0.18 L (1.0-4.8) k/uL Potassium (3.5-5.1) mmol/L Chloride (98-107) mmol/L Carbon Dioxide (22-30) mmol/L BUN (7-17) mg/dL Creatinine (0.52-1.04) mg/dL Glucose (74-99) mg/dL Calcium (8.4-10.2) mg/dL Procalcitonin 2.71 H (0.02-0.09) ng/mL Cortisol 126.0 H (3.1-22.4) UG/DL 01/07/24 01/07/24 Range/Units 05:59 05:59 RBC 3.63 L (3.80-5.40) m/uL Hgb 10.7 L (11.4-16.0) gm/dL Plt Count 117 L (150-450) k/uL Neutrophils # 9.0 H (1.3-7.7) k/uL Neutrophils # (Manual) (1.3-7.7) k/uL Lymphocytes # 0.5 L (1.0-4.8) k/uL Lymphocytes # (Manual) (1.0-4.8) k/uL Potassium 2.7 L* (3.5-5.1) mmol/L Chloride 125 H (98-107) mmol/L Carbon Dioxide 10 L (22-30) mmol/L BUN 37 H (7-17) mg/dL Creatinine 1.24 H (0.52-1.04) mg/dL Glucose 300 H (74-99) mg/dL Calcium 7.2 L (8.4-10.2) mg/dL Procalcitonin (0.02-0.09) ng/mL Cortisol (3.1-22.4) UG/DL Diabetes panel 01/07/24 Range/Units 05:59 Sodium 144 (137-145) mmol/L Potassium 2.7 L* (3.5-5.1) mmol/L Chloride 125 H (98-107) mmol/L Carbon Dioxide 10 L (22-30) mmol/L BUN 37 H (7-17) mg/dL Creatinine 1.24 H (0.52-1.04) mg/dL Glucose 300 H (74-99) mg/dL Calcium 7.2 L (8.4-10.2) mg/dL Calcium panel 01/07/24 Range/Units 05:59 Calcium 7.2 L (8.4-10.2) mg/dL Pituitary panel 01/07/24 Range/Units 05:59 Sodium 144 (137-145) mmol/L Potassium 2.7 L* (3.5-5.1) mmol/L Chloride 125 H (98-107) mmol/L Carbon Dioxide 10 L (22-30) mmol/L BUN 37 H (7-17) mg/dL Creatinine 1.24 H (0.52-1.04) mg/dL Glucose 300 H (74-99) mg/dL Calcium 7.2 L (8.4-10.2) mg/dL Adrenal panel 01/07/24 Range/Units 05:59 Sodium 144 (137-145) mmol/L Potassium 2.7 L* (3.5-5.1) mmol/L Chloride 125 H (98-107) mmol/L Carbon Dioxide 10 L (22-30) mmol/L BUN 37 H (7-17) mg/dL Creatinine 1.24 H (0.52-1.04) mg/dL Glucose 300 H (74-99) mg/dL Calcium 7.2 L (8.4-10.2) mg/dL - Imaging US - kidney/bladder: report reviewed, image reviewed Assessment and Plan Assessment: Impression: uti with sepsis. Chronic multiple medical problems. chronic sp tube,recurrent obstruction Plan: change sp tube.
--- NOTE | 2024-01-07 10:28 | P.PCN ---
Date of Procedure: 01/07/24 Preoperative Diagnosis: obstructed sp tube Postoperative Diagnosis: same Procedure(s) Performed: exchange sp tube, 20 fr Anesthesia: none Surgeon: Philip Aguirre Indications for Procedure: obstructed sp tube Description of Procedure: The patient is 38. She has a chronic sp tube placed at [facility]. It recurringly obstructs with stoney debris. She is in the hospital with a uti with sepsis. She was prepped after removing the sp tube. A 20 fr 10ml coude tip easily passed into the bladder. The balloon was inflated with 10 ml of water and the catheter was properly seeded feeling it against the bladder wall.
--- NOTE | 2024-01-07 10:55 | P.PN ---
Subjective Progress Note Date: 01/07/24 Principal diagnosis: Sepsis. Pulmonary consult dated January 06, 2024. 38-year-old female who presented from [facility] as a transfer, via EMS, for possible dehydration, urinary tract infection, and urosepsis. The patient was seen in the emergency department, by Dr. Braden Patino. He evaluated the patient, thought the patient likely had sepsis from a urinary source, and, place a central line, fluid resuscitated the patient, and placed the patient on norepinephrine. He called me about the patient, we excepted the patient into the intensive care unit, for further monitoring and management. Currently, she is on 4 L of oxygen by nasal cannula. She getting saline at 75 cc an hour. She received 1.5 L of saline in the emergency department. She is on Levophed, at 2.8 mcg/min. She continues on Zithromax and Rocephin. Will check a procalcitonin level and a cortisol level. As mentioned, she came from the [place] emergency department. White count 9.2, hemoglobin 10.9, hematocrit 34.8, platelet count 98,000. Sodium 150, potassium 3, chlorides 126, CO2 8, anion gap 16, BUN 51, creatinine 1.79. Calcium 7.1. Procalcitonin level 2.71. AST is 63. ALT is 237. N-terminal proBNP is 2410. Urine is cloudy, with moderate blood. Leukocyte esterase was large positive. Nitrite was negative. There is greater than 182 WBCs, many WBC clumps, and occasional bacteria noted. Chest x-ray shows right basilar and right midlung airspace opacities. This could be consistent with possible aspiration. Progress note dated January 07, 2024. 38-year-old female seen in consultation yesterday. Please see my note above. The patient was initially transferred from an outside hospital for urinary tract infection/urosepsis. Patient needed the ICU for further monitoring and management of her sepsis, and, required norepinephrine. Currently she is on room air. She is getting D5W at 100 cc an hour. She is also getting norepinephrine at 2 mcg/min. She is on Rocephin and azithromycin, for urinary tract infection, and questionable pneumonia, right lower lobe. White count is 9.7, hemoglobin 10.7, hematocrit 34.3, platelet count 117,000. Sodium 144, potassium 2.7, chlorides 125, carbon dioxide 10, anion gap normal, BUN 37, creatinine 1.24. Glucose is 325. Calcium 7.2. Urine is showing gram-negative bacilli, yet to be identified. Objective - Vital Signs Vital signs: Vital Signs Temp 99.2 F 01/07/24 08:00 Pulse 77 01/07/24 09:00 Resp 14 01/07/24 09:00 BP 86/60 01/07/24 09:00 Pulse Ox 97 01/07/24 09:00 FiO2 Intake & Output 01/06/24 01/07/24 01/07/24 18:59 06:59 18:59 Intake Total 6953.450 9389.188 300 Output Total 565 225 10 Balance 344.974 0558.188 290 Weight 47.6 kg Intake: IV 1250 200 Dextrose 5% in Water 1, 1200 200 000 ml @ 100 mls/hr IV . Q10H JACQUELIN Rx#:[id number] cefTRIAXone 1 gm In 50 Sodium Chloride 0.9% 50 ml @ 100 mls/hr IVPB Q12HR JACQUELIN Rx#:[id number] Intake, IV Titration 1546.775 246.188 100 Amount Azithromycin 500 mg In 250 Sodium Chloride 0.9% 250 ml @ 250 mls/hr IVPB DAILY JACQUELIN Rx#:[id number] Dextrose 5% in Water 1, 700 100 000 ml @ 100 mls/hr IV . Q10H JACQUELIN Rx#:[id number] Norepinephrine 4 mg In 71.775 146.188 Sodium Chloride 0.9% 250 ml @ 0.03 MCG/KG/MIN 5. 392 mls/hr IV .Q24H JACQUELIN Rx#:[id number] Potassium Chloride 20 meq 100 In Water For Injection 1 100ml.bag @ 50 mls/hr IVPB Q2H JACQUELIN Rx#: [id number] Potassium Chloride 20 meq 100 In Water For Injection 1 100ml.bag @ 50 mls/hr IVPB Q2H JACQUELIN Rx#: [id number] Sodium Chloride 0.9% 1, 375 000 ml @ 75 mls/hr IV . [id number] JACQUELIN Rx#:[id number] cefTRIAXone 1 gm In 50 Sodium Chloride 0.9% 50 ml @ 100 mls/hr IVPB Q12HR JACQUELIN Rx#:[id number] Output: Urine 565 225 10 Other: Voiding Method Indwelling Catheter Indwelling Catheter # Voids 1 1 1 - Exam No acute distress. Patient is aphasic. HEENT examination is grossly unremarkable. Mucous membranes are moist. No oral lesions. Neck supple. Full range of motion. No adenopathy thyromegaly or neck vein distention. Cardiovascular examination reveals regular rhythm rate. S1-S2 normal. No S3 or S4. No discernible murmur noted. Heart rate 69 bpm. Heart sounds are distant. Lungs reveal mostly clear breath sounds. Occasional rhonchi. No wheezes or crane hooker ckles. Room air saturation is 96%. Abdomen soft bowel sounds are heard. No masses or tenderness. Extremities are intact. No cyanosis clubbing or edema. Skin is without rash or lesion. Neurologic examination is difficult to assess as the patient does not speak. - Labs CBC & Chem 7: 01/07/24 05:59 01/07/24 05:59 Labs: Abnormal Lab Results - Last 24 Hours (Table) 01/06/24 01/07/24 01/07/24 Range/Units 05:38 05:59 05:59 RBC 3.63 L (3.80-5.40) m/uL Hgb 10.7 L (11.4-16.0) gm/dL Plt Count 117 L (150-450) k/uL Neutrophils # 9.0 H (1.3-7.7) k/uL Lymphocytes # 0.5 L (1.0-4.8) k/uL Potassium 2.7 L* (3.5-5.1) mmol/L Chloride 125 H (98-107) mmol/L Carbon Dioxide 10 L (22-30) mmol/L BUN 37 H (7-17) mg/dL Creatinine 1.24 H (0.52-1.04) mg/dL Glucose 300 H (74-99) mg/dL POC Glucose (mg/dL) (70-110) mg/dL Calcium 7.2 L (8.4-10.2) mg/dL Cortisol 126.0 H (3.1-22.4) UG/DL 01/07/24 Range/Units 07:05 RBC (3.80-5.40) m/uL Hgb (11.4-16.0) gm/dL Plt Count (150-450) k/uL Neutrophils # (1.3-7.7) k/uL Lymphocytes # (1.0-4.8) k/uL Potassium (3.5-5.1) mmol/L Chloride (98-107) mmol/L Carbon Dioxide (22-30) mmol/L BUN (7-17) mg/dL Creatinine (0.52-1.04) mg/dL Glucose (74-99) mg/dL POC Glucose (mg/dL) 325 H (70-110) mg/dL Calcium (8.4-10.2) mg/dL Cortisol (3.1-22.4) UG/DL Microbiology - Last 24 Hours (Table) 01/06/24 02:05 Urine Culture - Preliminary Urine,Voided Gram Neg Bacilli Assessment and Plan Assessment: Acute sepsis secondary to urinary source, with acute kidney injury. A gram- negative bacilli has been identified in the urine. Hypotension, secondary to sepsis. Possible aspiration pneumonia. History of fibromyalgia. History of gastroesophageal reflux disease. History of pneumonia. History of seizure disorder. History of Raynaud's syndrome. Prior history of methicillin-resistant Staph aureus and ESBL infection. History of anxiety. Multiple other medical problems and comorbidities. Plan: Plan dated January 06, 2024. The patient is currently on azithromycin and Rocephin. Will check a procalcitonin level and a cortisol level. The patient did receive fluid resuscitation with saline 1.5 L. The patient is on 4 L nasal cannula. She is getting saline at 75 cc an hour. Will change of fluid from saline to D5W. Additional recommendations and suggestions are forthcoming. Prognosis is guarded. Plan dated January 07, 2024. The patient continues on Rocephin. The patient is also on azithromycin. She clearly has a urinary tract infection and possible urosepsis. There also may be a pneumonia in the right lower lobe from aspiration. The patient is on room air. She is getting D5W at 100 cc an hour. The patient has norepinephrine at 2 mcg/min. Labs, x-rays, medications are reviewed. Prognosis is guarded. The patient will need to stay in the intensive care unit. Time with Patient: Less than 30
[2024-01-07] MEDS: ERTAPENEM 1 GM in SODIUM CHLORIDE 0.9% 50 ML IVPB SCH (12:43)
--- NOTE | 2024-01-07 12:47 | P.CNNES ---
History of Present Illness Consult date: 01/07/24 Requesting physician: Earnest Velazquez Reason for Consult: Seizure disorder History of Present Illness: Patient is a 38-year-old female came to the hospital by ambulance 2 days ago on 01/05/2024 at 5:51 PM as a transfer from [facility]. EMS flowsheet not available in the chart. Patient is nonverbal, not able to provide any history. As per records from [facility], patient has past medical history of W ernicke's encephalopathy, now bedbound to a wheelchair, epilepsy, neurogenic bladder with indwelling suprapubic catheter, who presented to the [place] [facility] on 01/05/2024 for altered mental status. Per patient's report, patient is minimally communicative at baseline, nonambulatory. Patient's was at the bedside, who mentioned that symptoms started in the morning when the patient woke up and became nonverbal and noncommunicative. He brought her to the ER. He states that patient has had multiple episodes like this in the past, for which she has been told, she has multiple vitamin/electrolyte deficiencies. She also has history of multiple UTIs in the past. The suprapubic catheter was just replaced 5 days ago by her urologist. Patient's was concerned that she is not eating. No seizure-like episode has been noted by the in a very long time. No fall. No trauma to the head. Patient's blood alcohol level was negative, WBC count 7.78, hemoglobin 11.7, platelets 123. Sodium was 141 and potassium 3.4, glucose 71, BUN 68, creatinine 2.33, calcium 8.2, AST 87, ALT 346 lipase normal. Magnesium 3.6. Troponin negative, TSH normal 0.73 urine drug screen positive for oxycodone. EKG shows sinus tachycardia with heart rate of 104. CT of the head obtained at [facility] was unremarkable for any intracranial findings. X-ray of the chest showed no acute pulmonary process or infectious etiologies. Patient was given a dose of Rocephin for UTI. Patient was transferred to [facility] for further evaluation. Vital signs on arrival blood pressure 92/63, pulse rate 94 temperature 98.2. Patient has been afebrile. Blood pressure has been running low around 80s to 90s systolic. Blood test shows normal WBC hemoglobin 11.0, platelets 97,000. Sodium 147 potassium 3.0, BUN 54 creatinine 1.71. AST 68, ALT 262. UA shows large amount of leukocyte esterase and greater than 182 RBC and greater than 182 WBC. Many WBC clumps. 1 squamous epithelial cell. Urine cultures have grown gram-negative bacilli. 10,000-49,000 CFU per mL. Her sodium has normalized. Potassium is 2.7, renal functions have improved with BUN 37 creatinine 1.24. Liver functions are slightly improving. Patient has been started on Invanz 1 g IVPB daily. Chest x-ray showed similar appearance of the lung given differences in inspiration. There remains right basilar and right midlung airspace opacities. Ultrasound of the abdomen and bladder showed suprapubic Barnard's catheter in place. No evidence for obstructive uropathy. Patient at home takes Florinef 0.1 mg twice daily, midodrine 5 mg 3 times daily, gabapentin 1200 mg 3 times daily, Seroquel 50 mg at bedtime, Ambien 12.5 mg at bedtime, B6 50 mg, oxybutynin, oxycodone, Pepcid, Topamax 50 mg 3 times daily, thiamine, Effexor 150 mg daily and Amitiza 24 mcg twice daily. Patient has history of seizure disorder and has been seen by multiple neurologists over the years. Patient has been to [facility] epilepsy clinic. She has intractable seizures and used to be on multiple anticonvulsant medication. On previous records she was taking Trileptal 300 mg 4 times a day, Vimpat 100 mg every morning, Klonopin 0.5 mg 3 times daily. Patient's outside medical records also mention about neurofibromatosis, Raynaud's disease, legal blindness, hard of hearing, clubfoot, chronic headache disorder, chronic catheter replacement and epilepsy. Review of Systems ROS unobtainable: due to mental status Past Medical History Past Medical History: Fibromyalgia, GERD/Reflux, Pneumonia, Seizure Disorder Additional Past Medical History / Comment(s): has seizures on a daily basis one or more a day, cHRONIC NECK/BACK PAIN, N/T FINGERS AND TOES, RAYNAUDS SYN. MENIERE'S,tinnitus, past uterine prolpase(sx) IBS, MUSCLE WEAKNESS, USES WALKER OR W/C History of Any Multi-Drug Resistant Organisms: ESBL, MRSA Date of last positivie culture/infection: 08/18/22 MRSA; 05/16/21 ESBL MDRO Source:: Urine MRSA; Urine ESBL Past Surgical History: Bariatric Surgery, Cholecystectomy, Hysterectomy Additional Past Surgical History / Comment(s): EYE SX (MUSCLES), radha en y 2013 Past Anesthesia/Blood Transfusion Reactions: No Reported Reaction Additional Past Anesthesia/Blood Transfusion Reaction / Comment(s): clausterphobia Past Psychological History: Anxiety, Depression Smoking Status: Current every day smoker Past Alcohol Use History: None Reported Additional Past Alcohol Use History / Comment(s): started smoking age 13- has quit off and on but currently smokes 1/2 ppd. Past Drug Use History: None Reported, Marijuana Additional Drug Use History / Comment(s): medical marijuana carrier, has not smoked kentrell rubi in a month - Past Family History Mother Family Medical History: Cancer Additional Family Medical History / Comment(s): TONGUE Father Family Medical History: Hypertension Medications and Allergies Home Medications Medication Instructions Recorded Confirmed Type Gabapentin [Neurontin] 1,200 mg PO TID 12/25/17 01/05/24 History QUEtiapine FUMARATE 50 mg PO HS 11/25/19 01/05/24 History Zolpidem Tartrate [Ambien Cr] 12.5 mg PO HS 11/25/19 01/05/24 History Fludrocortisone [Florinef] 0.1 mg PO BID 07/19/21 01/05/24 History Famotidine 40 mg PO HS 01/05/24 01/05/24 History Lubiprostone [Amitiza] 24 mcg PO BID 01/05/24 01/05/24 History Midodrine [ProAmatine] 5 mg PO TID 01/05/24 01/05/24 History Oxybutynin Chloride [oxyBUTYnin 10 mg PO DAILY 01/05/24 01/05/24 History chloride ER] Pyridoxine [Vitamin B-6] 50 mg PO DAILY 01/05/24 01/05/24 History Thiamine [Vitamin B-1] 100 mg PO DAILY 01/05/24 01/05/24 History Topiramate [Topamax] 50 mg PO TID 01/05/24 01/05/24 History Venlafaxine HCl [Effexor XR] 150 mg PO DAILY 01/05/24 01/05/24 History oxyCODONE-APAP 5-325MG [Percocet 1 tab PO QID 01/05/24 01/05/24 History 5-325 mg] Allergies Allergy/AdvReac Type Severity Reaction Status Date / Time levetiracetam [From [facility]] Allergy Rash/Hives Verified 01/05/24 18:40 Penicillins Allergy "STOPPED Verified 01/05/24 18:40 BREATHING" NSAIDS (Non-Steroidal AdvReac "MAY CAUSE Verified 01/05/24 18:40 Anti-Inflamma ULCERS R/T BARIATRIC SX" Physical Examination - Vital Signs Vital Signs: Vital Signs Temp Pulse Resp BP Pulse Ox 01/07/24 11:15 55 L 16 92/63 98 01/07/24 11:00 87 19 91/67 98 01/07/24 10:45 69 18 91/67 96 01/07/24 10:30 90 33 H 96/64 96 01/07/24 10:15 78 18 92/64 95 01/07/24 10:00 79 18 93/64 95 01/07/24 09:45 78 17 94/63 98 01/07/24 09:30 74 21 89/60 97 01/07/24 09:15 68 17 87/59 99 01/07/24 09:00 77 14 86/60 97 01/07/24 08:45 67 15 91/58 98 01/07/24 08:30 66 15 96/59 97 01/07/24 08:15 60 17 92/60 96 01/07/24 08:00 99.2 F 63 15 94/64 97 01/07/24 07:45 69 18 94/65 98 01/07/24 07:30 66 17 86/58 99 01/07/24 07:15 62 14 87/58 98 01/07/24 07:00 66 16 87/64 96 01/07/24 06:45 69 14 89/63 96 01/07/24 06:30 72 14 90/60 95 01/07/24 06:15 69 14 107/69 98 01/07/24 06:00 79 19 100/66 95 01/07/24 05:45 75 16 108/73 96 01/07/24 05:30 88 14 116/74 94 L 01/07/24 05:15 88 23 99/67 95 01/07/24 05:00 80 15 94/60 96 01/07/24 04:45 73 15 93/62 99 01/07/24 04:30 76 13 94/64 100 01/07/24 04:15 75 12 90/61 100 01/07/24 04:00 99.2 F 75 14 89/62 99 01/07/24 03:45 75 12 92/61 97 01/07/24 03:30 77 13 96/66 97 01/07/24 03:15 74 13 97/63 98 01/07/24 03:00 78 12 92/60 97 01/07/24 02:45 79 14 101/72 96 01/07/24 02:30 86 23 92/60 96 01/07/24 02:15 80 11 L 93/59 99 01/07/24 02:00 82 12 95/63 99 01/07/24 01:45 86 12 93/57 98 01/07/24 01:30 87 12 94/55 98 01/07/24 01:15 84 12 95/66 98 01/07/24 01:00 87 12 87/57 98 01/07/24 00:45 84 12 88/56 100 01/07/24 00:30 84 12 90/56 99 01/07/24 00:15 87 12 90/56 98 01/07/24 00:13 87 12 90/56 100 01/07/24 00:00 98.7 F 88 12 86/59 100 01/06/24 23:45 87 12 82/57 100 01/06/24 23:30 86 12 85/58 100 01/06/24 23:15 86 12 84/57 100 01/06/24 23:00 87 12 87/60 100 01/06/24 22:45 89 12 90/60 100 01/06/24 22:30 92 12 88/64 100 01/06/24 22:15 93 14 91/63 98 01/06/24 22:00 93 12 110/69 99 01/06/24 21:45 103 H 20 90/64 99 01/06/24 21:30 92 12 91/61 100 01/06/24 21:15 93 12 88/55 99 01/06/24 21:00 98 15 96/65 97 01/06/24 20:45 98 14 96/56 98 01/06/24 20:30 99 12 83/57 96 01/06/24 20:15 89 13 83/61 98 01/06/24 20:00 98.9 F 89 12 87/58 95 01/06/24 19:45 96 14 86/57 95 01/06/24 19:30 98 14 83/58 94 L 01/06/24 19:15 101 H 17 89/58 95 01/06/24 19:00 99 15 82/55 97 01/06/24 18:45 106 H 16 91/59 98 01/06/24 18:30 101 H 14 102/62 99 01/06/24 18:15 109 H 16 86/50 98 01/06/24 18:00 105 H 16 96/61 94 L 01/06/24 17:45 102 H 14 83/56 97 01/06/24 17:30 95 16 80/50 99 01/06/24 17:15 103 H 18 101/60 98 01/06/24 17:00 110 H 19 85/53 97 01/06/24 16:45 106 H 16 108/68 98 01/06/24 16:30 110 H 21 93/60 98 01/06/24 16:15 108 H 16 89/55 98 01/06/24 16:00 98.3 F 109 H 19 83/49 97 01/06/24 15:45 103 H 15 88/58 97 01/06/24 15:30 111 H 15 93/55 97 01/06/24 15:15 112 H 18 84/60 96 01/06/24 15:00 114 H 18 86/59 96 01/06/24 14:45 116 H 15 104/68 97 01/06/24 14:30 116 H 18 85/59 97 01/06/24 14:15 112 H 20 89/57 98 01/06/24 14:00 113 H 17 94/62 97 01/06/24 13:45 116 H 22 107/96 97 01/06/24 13:30 116 H 22 98/58 97 01/06/24 13:15 113 H 22 105/70 98 01/06/24 13:00 116 H 19 101/53 97 01/06/24 12:45 112 H 18 108/75 97 01/06/24 12:30 113 H 17 97/66 98 01/06/24 12:15 113 H 16 101/63 98 01/06/24 12:00 113 H 16 87/56 98 Intake and Output 01/06/24 01/07/24 01/07/24 22:59 06:59 14:59 Intake Total 850 1046.188 932.621 Output Total 315 85 90 Balance 535 961.188 842.621 Intake: IV 350 900 800 Azithromycin 500 mg In 250 Sodium Chloride 0.9% 250 ml @ 250 mls/hr IVPB DAILY [facility] Rx#:[id number] Dextrose 5% in Water 1, 300 900 400 000 ml @ 100 mls/hr IV . Q10H [facility] Rx#:[id number] Potassium Chloride 20 meq 100 In Water For Injection 1 100ml.bag @ 50 mls/hr IVPB Q2H [facility] Rx#: [id number] cefTRIAXone 1 gm In 50 50 Sodium Chloride 0.9% 50 ml @ 100 mls/hr IVPB Q12HR [facility] Rx#:[id number] Intake, IV Titration 500 146.188 132.621 Amount Dextrose 5% in Water 1, 500 000 ml @ 100 mls/hr IV . Q10H [facility] Rx#:[id number] Norepinephrine 4 mg In 146.188 32.621 Sodium Chloride 0.9% 250 ml @ 0.03 MCG/KG/MIN 5. 392 mls/hr IV .Q24H [facility] Rx#:[id number] Potassium Chloride 20 meq 100 In Water For Injection 1 100ml.bag @ 50 mls/hr IVPB Q2H [facility] Rx#: [id number] Output: Urine 315 85 90 Other: Voiding Method Indwelling Catheter Indwelling Catheter # Voids 1 1 1 Weight 47.6 kg Patient is a young female, who is obtunded. Initially she would not open her eyes, but later she opened her eyes very briefly, and then close it again. Patient was groggy. Patient is nonverbal at baseline. Patient does not follow directions. Attention, concentration is severely impaired and fund of knowledge cannot be assessed because of mental status and nonverbal state. On cranial nerve examination, pupils are equal, round and reacting to light, visual massey cannot be tested. Oculocephalics are absent. Corneals are present. Her face is symmetric. Patient did not cooperate with testing of the lower cranial nerves. Some sporadic chin tremor was noted. On muscle strength testing, patient does not hold her arms up. She does not follow directions, or able to cooperate with muscle strength testing. She is very obtunded, unresponsive mostly. Her tone is equal bilaterally. Patient appears to have bilateral heel cord shortening. Patient has constant plantarflexion. Deep tendon reflexes are absent and plantars are flat. Sensory to touch cannot be assessed, but patient has some decerebrate posturing with noxious stimuli, but later on she had facial grimacing noted. Cerebellar function cannot be assessed. Tone is normal in the upper limbs, but increased in the lower limbs and bulk of muscles normal. Gait deferred.. On general examination, there is no carotid bruit or murmur, S1-S2 audible. Chest is clear on consultation. Abdomen is soft nontender. No organomegaly, bowel sounds present. Peripheral pulses are present. No peripheral edema. Results - Laboratory Findings CBC and BMP: 01/07/24 05:59 01/07/24 05:59 Abnormal Lab Findings: Abnormal Labs 01/06/24 01/06/24 01/06/24 00:57 00:57 02:05 RBC 3.69 L Hgb 11.0 L Plt Count 97 L Neutrophils # Neutrophils # (Manual) Lymphocytes # 0.2 L Lymphocytes # (Manual) Sodium 147 H Potassium 3.0 L Chloride 125 H Carbon Dioxide 8 L* BUN 54 H Creatinine 1.71 H Glucose POC Glucose (mg/dL) Calcium 7.1 L Magnesium 2.9 H AST 68 H ALT 262 H Alkaline Phosphatase 530 H Total Protein 4.8 L Albumin 2.6 L Procalcitonin Cortisol Urine Appearance Cloudy H Urine Protein 2+ H Urine Ketones Trace H Urine Blood Moderate H Ur Leukocyte Esterase Large H Urine RBC >182 H Urine WBC >182 H Urine WBC Clumps Many H Urine Bacteria Occasional H Hyaline Casts 3 H Urine Mucus Rare H 01/06/24 01/06/24 01/06/24 05:38 05:38 05:38 RBC Hgb Plt Count Neutrophils # Neutrophils # (Manual) Lymphocytes # Lymphocytes # (Manual) Sodium 150 H Potassium 3.0 L Chloride 126 H Carbon Dioxide 8 L* BUN 51 H Creatinine 1.79 H Glucose POC Glucose (mg/dL) Calcium 7.1 L Magnesium 2.8 H AST 63 H ALT 237 H Alkaline Phosphatase 491 H Total Protein 4.9 L Albumin 2.6 L Procalcitonin 2.71 H Cortisol 126.0 H Urine Appearance Urine Protein Urine Ketones Urine Blood Ur Leukocyte Esterase Urine RBC Urine WBC Urine WBC Clumps Urine Bacteria Hyaline Casts Urine Mucus 01/06/24 01/07/24 01/07/24 07:26 05:59 05:59 RBC 3.61 L 3.63 L Hgb 10.9 L 10.7 L Plt Count 98 L 117 L Neutrophils # 9.0 H Neutrophils # (Manual) 8.00 H Lymphocytes # 0.5 L Lymphocytes # (Manual) 0.18 L Sodium Potassium 2.7 L* Chloride 125 H Carbon Dioxide 10 L BUN 37 H Creatinine 1.24 H Glucose 300 H POC Glucose (mg/dL) Calcium 7.2 L Magnesium AST ALT Alkaline Phosphatase Total Protein Albumin Procalcitonin Cortisol Urine Appearance Urine Protein Urine Ketones Urine Blood Ur Leukocyte Esterase Urine RBC Urine WBC Urine WBC Clumps Urine Bacteria Hyaline Casts Urine Mucus 01/07/24 07:05 RBC Hgb Plt Count Neutrophils # Neutrophils # (Manual) Lymphocytes # Lymphocytes # (Manual) Sodium Potassium Chloride Carbon Dioxide BUN Creatinine Glucose POC Glucose (mg/dL) 325 H Calcium Magnesium AST ALT Alkaline Phosphatase Total Protein Albumin Procalcitonin Cortisol Urine Appearance Urine Protein Urine Ketones Urine Blood Ur Leukocyte Esterase Urine RBC Urine WBC Urine WBC Clumps Urine Bacteria Hyaline Casts Urine Mucus Assessment and Plan Assessment: * Altered mental status, likely due to metabolic encephalopathy. * Acute UTI * Severe dehydration * Acute kidney injury * Hypernatremia * Hypokalemia * Hypoglycemia * Seizure disorder, in remission * Reported history of Wernicke's encephalopathy, with wheelchair bound status, minimally communicative at baseline. * Presence of suprapubic catheter. * Malnutrition * Hypotension Plan: * Patient has significant altered mental status, which could be related to metabolic encephalopathy. * Check EEG rule out any epileptiform activity * Patient currently on Invanz. ID following. * Treatment of other metabolic conditions as per IM/critical care. * We will obtain collateral history from patient's regarding her seizure disorder. * Patient used to be on Trileptal, Vimpat and Klonopin for seizures, but currently only on Topamax and Klonopin. * Neurology will follow. Thank you for the consult. Addendum: I spoke to patient's on the phone, who mentions that they have been for last 17 years. He informed me that patient had gastric bypass surgery in 2013, after which she started having problem with walking. She started with a cane, then walker. In October 2019 she was hospitalized and after that she could not walk, and has been wheelchair-bound since then. Patient has been to [facility] and was diagnosed with nutritional deficiency, Wernicke's encephalopathy. She did have MRI performed at [facility] and workup has been performed. There was no diagnosis of MS. Patient's hospital records from [facility] mentioned about "neurofibromatosis", and patient's is not aware any confirmed diagnosis of NF. No previous his tory of tumors or brain tumors. Patient otherwise talks normally. She does have seizure disorder since 2007. She currently follows up with Dr. Higgins. Patient used to be on Vimpat and Trileptal, but they have been discontinued and she is just on Topamax 50 mg 3 times daily. She gets seizures once in a while. Last seizure was about a week ago which was a "mini seizure", in which she zoned out for couple minutes and when she came back, was feeling dizzy. Patient's admits that she has history of alcoholism when she was in her 20s. She has been sober since last 11 years. Patient's EEG was quite abnormal with epileptiform activity over the left hemispheric region, maximal left parietal. Patient is allergic to Keppra. Patient will be started on Vimpat 200 mg IV twice daily. Repeat EEG in the morning. Time with Patient: Greater than 30
[2024-01-07 12:48] LABS: Glucose,Whole Blood 276 mg/dL (70-110)
[2024-01-07] MEDS: INSULIN ASPART (NovoLOG) 100 UNIT/ML VIAL SQ SCH (12:53)
[2024-01-07] MEDS: THIAMINE 100 MG/ML 2 ML VIAL IM SCH (13:04)
--- NOTE | 2024-01-07 13:19 | P.PN ---
Subjective Progress Note Date: 01/07/24 38-year-old female with past medical history significant for seizure disorder, history of fibromyalgia, GERD, pneumonia, Raynaud's, Mnire's disease, history of ESBL, MRSA who was transferred from [facility] via EMS for altered mental status, sepsis/UTI, and possible dehydration. In the ED patient was hypotensive, required IV fluids, was persistently hypotensive had a central line placed and required Levophed. Patient was later on transferred to ICU for further evaluation and management. Patient is ANO x 0. Opening eyes to verbal stimuli, resisting eye opening and withdraws to touch. Patient currently on 4 L oxygen by nasal cannula, on IV fluids as unable to take p.o. intake due to al tered mental status. Remains on Levophed. Patient is currently on Rocephin and azithromycin for concern of pneumonia and UTI. Patient home medication list shows patient takes fludrocortisone, currently on hydrocortisone. On initial presentation patient's white count was 9.2, hemoglobin 10.9, platelet 98,000. Patient has elevated sodium 150, potassium is 3, CO2 8, anion gap 16, BUN 50 and creatinine 1.79. Procalcitonin level 2.71. AST 63 ALT is 237. Urine was cloudy with moderate blood. Leukocyte esterase was positive. Many WBCs and occasional bacteria noted in the urine. Chest x-ray showed right basilar and right midlung airspace opacities. Patient noted to have crackles and gurgling, concern for aspiration. 01/06. Patient seen and examined. Blood work done this morning showed WBC 9.7, hemoglobin 10.7, sodium 144, potassium 2.7, BUN 37, creatinine 1.24 glucose 300. Patient opens eyes, at baseline she only answers with yes or no current nursing staff REVIEW OF SYSTEMS: Cannot be obtained as patient is lethargic PHYSICAL EXAMINATION: GENERAL: The patient is lethargic HEENT: Pupils are round and equally reacting to light. EOMI. No scleral icterus. No conjunctival pallor. Normocephalic, atraumatic. No pharyngeal erythema. No thyromegaly. CARDIOVASCULAR: S1 and S2 present. No murmurs, rubs, or gallops. PULMONARY: Chest is clear to auscultation, no wheezing or crackles. ABDOMEN: Soft, nontender, nondistended, normoactive bowel sounds. No palpable organomegaly. MUSCULOSKELETAL: No joint swelling or deformity. EXTREMITIES: No cyanosis, clubbing, or pedal edema. NEUROLOGICAL: Gross neurological examination did not reveal any focal deficits. SKIN: No rashes. Assessment and plan Septic shock requiring vasopressors: UTI: Aspiration pneumonia: History of MRSA and ESBL: Thrombocytopenia: Monitor vital sign Monitor CBC Monitor CMP Follow-up on blood cultures Follow-up on urine cultures Currently on Rocephin and azithromycin for aspiration pneumonia and UTI. Seizure precautions IV fluids Solu-Cortef. Continue IV pressors ID following Urology following Hypernatremia: YARELIS: Secondary to dehydration Continue IV fluids Seizure disorder: History of seizure disorder on Topamax Allergic to Keppra Seizure precautions As needed Ativan Continue Topamax if patient able to take p.o. intake. Neurology consult. History of Mnire's disease: History of Raynaud's DVT prophylaxis. SCD, thrombocytopenia. Labs and medication were reviewed.. Continue same treatment. Continue with symptomatic treatment. Resume home medication. Monitor labs and vitals. DVT and GI prophylaxis. Further recommendations as per clinical course of the patient Dictation was produced using [employer] dictation software. please excuse any grammatical, word or spelling errors. Objective - Vital Signs Vital signs: Vital Signs Temp 99.2 F 01/07/24 08:00 Pulse 77 01/07/24 09:00 Resp 14 01/07/24 09:00 BP 86/60 01/07/24 09:00 Pulse Ox 97 01/07/24 09:00 FiO2 Intake & Output 01/06/24 01/07/24 01/07/24 18:59 06:59 18:59 Intake Total 5385.029 6490.188 300 Output Total 565 225 10 Balance 841.239 7403.188 290 Weight 47.6 kg Intake: IV 1250 200 Dextrose 5% in Water 1, 1200 200 000 ml @ 100 mls/hr IV . Q10H [facility] Rx#:[id number] cefTRIAXone 1 gm In 50 Sodium Chloride 0.9% 50 ml @ 100 mls/hr IVPB Q12HR [facility] Rx#:[id number] Intake, IV Titration 1546.775 246.188 100 Amount Azithromycin 500 mg In 250 Sodium Chloride 0.9% 250 ml @ 250 mls/hr IVPB DAILY [facility] Rx#:[id number] Dextrose 5% in Water 1, 700 100 000 ml @ 100 mls/hr IV . Q10H [facility] Rx#:[id number] Norepinephrine 4 mg In 71.775 146.188 Sodium Chloride 0.9% 250 ml @ 0.03 MCG/KG/MIN 5. 392 mls/hr IV .Q24H [facility] Rx#:[id number] Potassium Chloride 20 meq 100 In Water For Injection 1 100ml.bag @ 50 mls/hr IVPB Q2H [facility] Rx#: [id number] Potassium Chloride 20 meq 100 In Water For Injection 1 100ml.bag @ 50 mls/hr IVPB Q2H [facility] Rx#: [id number] Sodium Chloride 0.9% 1, 375 000 ml @ 75 mls/hr IV . [id number] [facility] Rx#:[id number] cefTRIAXone 1 gm In 50 Sodium Chloride 0.9% 50 ml @ 100 mls/hr IVPB Q12HR [facility] Rx#:[id number] Output: Urine 565 225 10 Other: Voiding Method Indwelling Catheter Indwelling Catheter # Voids 1 1 1 - Labs CBC & Chem 7: 01/07/24 05:59 01/07/24 05:59 Labs: Abnormal Lab Results - Last 24 Hours (Table) 01/06/24 01/07/24 01/07/24 Range/Units 05:38 05:59 05:59 RBC 3.63 L (3.80-5.40) m/uL Hgb 10.7 L (11.4-16.0) gm/dL Plt Count 117 L (150-450) k/uL Neutrophils # 9.0 H (1.3-7.7) k/uL Lymphocytes # 0.5 L (1.0-4.8) k/uL Potassium 2.7 L* (3.5-5.1) mmol/L Chloride 125 H (98-107) mmol/L Carbon Dioxide 10 L (22-30) mmol/L BUN 37 H (7-17) mg/dL Creatinine 1.24 H (0.52-1.04) mg/dL Glucose 300 H (74-99) mg/dL POC Glucose (mg/dL) (70-110) mg/dL Calcium 7.2 L (8.4-10.2) mg/dL Cortisol 126.0 H (3.1-22.4) UG/DL 01/07/24 Range/Units 07:05 RBC (3.80-5.40) m/uL Hgb (11.4-16.0) gm/dL Plt Count (150-450) k/uL Neutrophils # (1.3-7.7) k/uL Lymphocytes # (1.0-4.8) k/uL Potassium (3.5-5.1) mmol/L Chloride (98-107) mmol/L Carbon Dioxide (22-30) mmol/L BUN (7-17) mg/dL Creatinine (0.52-1.04) mg/dL Glucose (74-99) mg/dL POC Glucose (mg/dL) 325 H (70-110) mg/dL Calcium (8.4-10.2) mg/dL Cortisol (3.1-22.4) UG/DL Microbiology - Last 24 Hours (Table) 01/06/24 02:05 Urine Culture - Preliminary Urine,Voided Gram Neg Bacilli
[2024-01-07 18:04] LABS: Glucose,Whole Blood 243 mg/dL (70-110)
[2024-01-07] MEDS: Lacosamide IV (ages 17+ yrs) 200 MG/20 ML ML IVP SCH (18:47)
--- NOTE | 2024-01-07 21:46 | EEG ---
ELECTROENCEPHALOGRAM REPORT PREAMBLE: This is a 38-year-old female with altered mental status. The patient has history of seizure disorder. EEG FINDINGS: This is a 21-channel digital EEG recorded with video component, utilizing 10/20 international system with referential and bipolar montages. Background consists of moderately well-developed, but poorly regulated, mixed frequency of some disorganized, mixed theta and some delta frequency seen in bihemispheric region. Intermittent focal sharp waves were seen in the left hemispheric region, with maximal phase reversal in the left parietal region. Sometimes, these sharp waves become more rhythmic at 1 hertz sporadically. No electrographic seizure was however recorded. Different stages of sleep were not clearly seen. IMPRESSION: This is an abnormal EEG due to, 1. Background slowing of moderate to severe degree. This is suggestive of generalized cerebral dysfunction as can be seen with toxic metabolic encephalopathy or related to diffuse structural brain abnormality. Clinical correlation is recommended. 2. Intermittent sharp waves seen in the left hemispheric region, with phase reversal in the left parietal region, which occasionally becomes more rhythmic at 1 hertz. This is suggestive of focal cortical neuronal dysfunction, may suggest underlying cortical irritability and tendency for seizure. 3. No electrographic seizure was recorded. 4. Follow up EEG recommended, if clinically indicated. MMODL / IJN: [id number] / [facility] CENTERBlanca
--- NOTE | 2024-01-07 21:46 | P.CONS ---
History of Present Illness - Reason for Consult Consult date: 01/07/24 Septic shock, pneumonia UTI Requesting physician: Earnest Velazquez - Chief Complaint Mental status changes decreased oral intake x few days - History of Present Illness Patient is a 38-year-old female with a past medical history significant for seizure disorder pneumonia reflux fibromyalgia, patient was brought into the hospital 2 days ago as a transfer from [facility] with the patient was brought in concern for dehydration and urinary tract infection p atient initially presented with the mental status changes decreased oral intake patient was found to have urine tract infection and YARELIS. Patient was transferred to [facility] for further evaluation on presentation to this facility patient was afebrile and no fever have been recorded subsequently patient was tachycardic initially subsequently resolved hypotensive requiring admission to the ICU and requiring pressor support mildly hypoxic on a low nasal cannula O2 supplementation patient did have a white count of 9.7 creatinine is 1.24 urine has been cloudy with large leukocyte esterase with cultures currently growing gram-negative bacilli patient did have a chest x-ray right perihilar left lung base opacity, concerning for pneumonia patient did have abdominal bladder ultrasound suprapubic Barnard catheter in place no evidence for obstructive uropathy apparently the patient did have some leakage from around the suprapubic catheter and Barnard has been replaced by urology still leaking as reported by the nursing staff infectious was consulted for further management of provide therapy currently treated with Rocephin patient previous urine culture have been positive for ESBL Proteus Review of Systems Positive points has been mentioned in HPI complete review could not be obtained because of his underlying mental status Past Medical History Past Medical History: Fibromyalgia, GERD/Reflux, Pneumonia, Seizure Disorder Additional Past Medical History / Comment(s): has seizures on a daily basis one or more a day, cHRONIC NECK/BACK PAIN, N/T FINGERS AND TOES, RAYNAUDS SYN. MENIERE'S,tinnitus, past uterine prolpase(sx) IBS, MUSCLE WEAKNESS, USES WALKER OR W/C History of Any Multi-Drug Resistant Organisms: ESBL, MRSA Year Discovered:: 08/18/22 MRSA; 05/16/21 ESBL MDRO Source:: Urine MRSA; Urine ESBL Past Surgical History: Bariatric Surgery, Cholecystectomy, Hysterectomy Additional Past Surgical History / Comment(s): EYE SX (MUSCLES), radha en y 2012 Past Anesthesia/Blood Transfusion Reactions: No Reported Reaction Additional Past Anesthesia/Blood Transfusion Reaction / Comm: clausterphobia Past Psychological History: Anxiety, Depression Smoking Status: Current every day smoker Past Alcohol Use History: None Reported Additional Past Alcohol Use History / Comment(s): started smoking age 13- has quit off and on but currently smokes 1/2 ppd. Past Drug Use History: None Reported, Marijuana Additional Drug Use History / Comment(s): medical marijuana carrier, has not smoked kentrell rubi in a month - Past Family History Mother Family Medical History: Cancer Additional Family Medical History / Comment(s): TONGUE Father Family Medical History: Hypertension Medications and Allergies Home Medications Medication Instructions Recorded Confirmed Type Gabapentin [Neurontin] 1,200 mg PO TID 12/25/17 01/05/24 History QUEtiapine FUMARATE 50 mg PO HS 11/25/19 01/05/24 History Zolpidem Tartrate [Ambien Cr] 12.5 mg PO HS 11/25/19 01/05/24 History Fludrocortisone [Florinef] 0.1 mg PO BID 07/19/21 01/05/24 History Famotidine 40 mg PO HS 01/05/24 01/05/24 History Lubiprostone [Amitiza] 24 mcg PO BID 01/05/24 01/05/24 History Midodrine [ProAmatine] 5 mg PO TID 01/05/24 01/05/24 History Oxybutynin Chloride [oxyBUTYnin 10 mg PO DAILY 01/05/24 01/05/24 History chloride ER] Pyridoxine [Vitamin B-6] 50 mg PO DAILY 01/05/24 01/05/24 History Thiamine [Vitamin B-1] 100 mg PO DAILY 01/05/24 01/05/24 History Topiramate [Topamax] 50 mg PO TID 01/05/24 01/05/24 History Venlafaxine HCl [Effexor XR] 150 mg PO DAILY 01/05/24 01/05/24 History oxyCODONE-APAP 5-325MG [Percocet 1 tab PO QID 01/05/24 01/05/24 History 5-325 mg] Allergies Allergy/AdvReac Type Severity Reaction Status Date / Time levetiracetam [From [facility] [place]] Allergy Rash/Hives Verified 01/05/24 18:40 Penicillins Allergy "STOPPED Verified 01/05/24 18:40 BREATHING" NSAIDS (Non-Steroidal AdvReac "MAY CAUSE Verified 01/05/24 18:40 Anti-Inflamma ULCERS R/T BARIATRIC SX" Physical Exam Vitals: Vital Signs Temp Pulse Resp BP Pulse Ox 01/07/24 10:45 69 18 91/67 96 01/07/24 10:30 90 33 H 96/64 96 01/07/24 10:15 78 18 92/64 95 01/07/24 10:00 79 18 93/64 95 01/07/24 09:45 78 17 94/63 98 01/07/24 09:30 74 21 89/60 97 01/07/24 09:15 68 17 87/59 99 01/07/24 09:00 77 14 86/60 97 01/07/24 08:45 67 15 91/58 98 01/07/24 08:30 66 15 96/59 97 01/07/24 08:15 60 17 92/60 96 01/07/24 08:00 99.2 F 63 15 94/64 97 01/07/24 07:45 69 18 94/65 98 01/07/24 07:30 66 17 86/58 99 01/07/24 07:15 62 14 87/58 98 01/07/24 07:00 66 16 87/64 96 01/07/24 06:45 69 14 89/63 96 01/07/24 06:30 72 14 90/60 95 01/07/24 06:15 69 14 107/69 98 01/07/24 06:00 79 19 100/66 95 01/07/24 05:45 75 16 108/73 96 01/07/24 05:30 88 14 116/74 94 L 01/07/24 05:15 88 23 99/67 95 01/07/24 05:00 80 15 94/60 96 01/07/24 04:45 73 15 93/62 99 01/07/24 04:30 76 13 94/64 100 01/07/24 04:15 75 12 90/61 100 01/07/24 04:00 99.2 F 75 14 89/62 99 01/07/24 03:45 75 12 92/61 97 01/07/24 03:30 77 13 96/66 97 01/07/24 03:15 74 13 97/63 98 01/07/24 03:00 78 12 92/60 97 01/07/24 02:45 79 14 101/72 96 01/07/24 02:30 86 23 92/60 96 01/07/24 02:15 80 11 L 93/59 99 01/07/24 02:00 82 12 95/63 99 01/07/24 01:45 86 12 93/57 98 01/07/24 01:30 87 12 94/55 98 01/07/24 01:15 84 12 95/66 98 01/07/24 01:00 87 12 87/57 98 01/07/24 00:45 84 12 88/56 100 01/07/24 00:30 84 12 90/56 99 01/07/24 00:15 87 12 90/56 98 01/07/24 00:13 87 12 90/56 100 01/07/24 00:00 98.7 F 88 12 86/59 100 01/06/24 23:45 87 12 82/57 100 01/06/24 23:30 86 12 85/58 100 01/06/24 23:15 86 12 84/57 100 01/06/24 23:00 87 12 87/60 100 01/06/24 22:45 89 12 90/60 100 01/06/24 22:30 92 12 88/64 100 01/06/24 22:15 93 14 91/63 98 01/06/24 22:00 93 12 110/69 99 01/06/24 21:45 103 H 20 90/64 99 01/06/24 21:30 92 12 91/61 100 01/06/24 21:15 93 12 88/55 99 01/06/24 21:00 98 15 96/65 97 01/06/24 20:45 98 14 96/56 98 01/06/24 20:30 99 12 83/57 96 01/06/24 20:15 89 13 83/61 98 01/06/24 20:00 98.9 F 89 12 87/58 95 01/06/24 19:45 96 14 86/57 95 01/06/24 19:30 98 14 83/58 94 L 01/06/24 19:15 101 H 17 89/58 95 01/06/24 19:00 99 15 82/55 97 01/06/24 18:45 106 H 16 91/59 98 01/06/24 18:30 101 H 14 102/62 99 01/06/24 18:15 109 H 16 86/50 98 01/06/24 18:00 105 H 16 96/61 94 L 01/06/24 17:45 102 H 14 83/56 97 01/06/24 17:30 95 16 80/50 99 01/06/24 17:15 103 H 18 101/60 98 01/06/24 17:00 110 H 19 85/53 97 01/06/24 16:45 106 H 16 108/68 98 01/06/24 16:30 110 H 21 93/60 98 01/06/24 16:15 108 H 16 89/55 98 01/06/24 16:00 98.3 F 109 H 19 83/49 97 01/06/24 15:45 103 H 15 88/58 97 01/06/24 15:30 111 H 15 93/55 97 01/06/24 15:15 112 H 18 84/60 96 01/06/24 15:00 114 H 18 86/59 96 01/06/24 14:45 116 H 15 104/68 97 01/06/24 14:30 116 H 18 85/59 97 01/06/24 14:15 112 H 20 89/57 98 01/06/24 14:00 113 H 17 94/62 97 01/06/24 13:45 116 H 22 107/96 97 01/06/24 13:30 116 H 22 98/58 97 01/06/24 13:15 113 H 22 105/70 98 01/06/24 13:00 116 H 19 101/53 97 01/06/24 12:45 112 H 18 108/75 97 01/06/24 12:30 113 H 17 97/66 98 01/06/24 12:15 113 H 16 101/63 98 01/06/24 12:00 113 H 16 87/56 98 01/06/24 11:45 116 H 16 96/64 97 01/06/24 11:30 118 H 20 109/64 96 01/06/24 11:15 120 H 25 H 93/57 95 Intake and Output 01/06/24 01/07/24 01/07/24 22:59 06:59 14:59 Intake Total 850 1046.188 317.973 Output Total 315 85 10 Balance 535 961.188 307.973 Intake: IV 350 900 200 Dextrose 5% in Water 1, 300 900 200 000 ml @ 100 mls/hr IV . Q10H [facility] Rx#:[id number] cefTRIAXone 1 gm In 50 Sodium Chloride 0.9% 50 ml @ 100 mls/hr IVPB Q12HR [facility] Rx#:[id number] Intake, IV Titration 500 146.188 117.973 Amount Dextrose 5% in Water 1, 500 000 ml @ 100 mls/hr IV . Q10H [facility] Rx#:[id number] Norepinephrine 4 mg In 146.188 17.973 Sodium Chloride 0.9% 250 ml @ 0.03 MCG/KG/MIN 5. 392 mls/hr IV .Q24H [facility] Rx#:[id number] Potassium Chloride 20 meq 100 In Water For Injection 1 100ml.bag @ 50 mls/hr IVPB Q2H [facility] Rx#: [id number] Output: Urine 315 85 10 Other: Voiding Method Indwelling Catheter Indwelling Catheter # Voids 1 1 1 Weight 47.6 kg GENERAL DESCRIPTION: Middle-aged female lying in bed, no distress. No tachypnea or accessory muscle of respiration use. HEENT: Shows Pallor , no scleral icterus. Oral mucous membrane is dry. No pharyngeal erythema or thrush NECK: Trachea central, no thyromegaly. LUNGS: Unlabored breathing. Decreased breath sound the base. No wheeze or crackle. HEART: S1, S2, regular rate and rhythm. No loud murmur ABDOMEN: Soft, no tenderness , guarding or rigidity, no organomegaly EXTREMITIES: No edema of feet. SKIN: No rash, no masses palpable. NEUROLOGICAL: The patient is lethargic orientation cannot be determined Results CBC & Chem 7: 01/07/24 05:59 01/07/24 19:31 Labs: Abnormal Lab Results - Last 24 Hours (Table) 01/06/24 01/07/24 01/07/24 Range/Units 05:38 05:59 05:59 RBC 3.63 L (3.80-5.40) m/uL Hgb 10.7 L (11.4-16.0) gm/dL Plt Count 117 L (150-450) k/uL Neutrophils # 9.0 H (1.3-7.7) k/uL Lymphocytes # 0.5 L (1.0-4.8) k/uL Potassium 2.7 L* (3.5-5.1) mmol/L Chloride 125 H (98-107) mmol/L Carbon Dioxide 10 L (22-30) mmol/L BUN 37 H (7-17) mg/dL Creatinine 1.24 H (0.52-1.04) mg/dL Glucose 300 H (74-99) mg/dL POC Glucose (mg/dL) (70-110) mg/dL Calcium 7.2 L (8.4-10.2) mg/dL Cortisol 126.0 H (3.1-22.4) UG/DL 01/07/24 Range/Units 07:05 RBC (3.80-5.40) m/uL Hgb (11.4-16.0) gm/dL Plt Count (150-450) k/uL Neutrophils # (1.3-7.7) k/uL Lymphocytes # (1.0-4.8) k/uL Potassium (3.5-5.1) mmol/L Chloride (98-107) mmol/L Carbon Dioxide (22-30) mmol/L BUN (7-17) mg/dL Creatinine (0.52-1.04) mg/dL Glucose (74-99) mg/dL POC Glucose (mg/dL) 325 H (70-110) mg/dL Calcium (8.4-10.2) mg/dL Cortisol (3.1-22.4) UG/DL Microbiology - Last 24 Hours (Table) 01/06/24 02:05 Urine Culture - Preliminary Urine,Voided Gram Neg Bacilli Assessment and Plan (1) Penicillin allergy Current Visit: Yes Status: Acute Code(s): Z88.0 - ALLERGY STATUS TO PENICILLIN SNOMED Code(s): 95390067 (2) UTI (urinary tract infection) Current Visit: Yes Status: Acute Code(s): N39.0 - URINARY TRACT INFECTION, SITE NOT SPECIFIED SNOMED Code(s): 66891916 (3) Sepsis Current Visit: No Status: Acute Code(s): A41.9 - SEPSIS, UNSPECIFIED ORGANISM SNOMED Code(s): 51717861 Plan: 1patient presented to hospital with sepsis in this patient who did have hypotension tachycardia significantly positive UA most likely symptomatic ureteric infection catheter associated with the previous culture positive for ESBL Proteus 2-we will discontinue Rocephin 3 start the patient on Invanz 1 g daily- We will follow on clinical condition and cultures to further adjust medication if needed Thank you for this consultation we will follow the patient along with you Dictation was produced using [employer]panda / hellof[employer] dictation software. please excuse any grammatical, word or spelling errors. Time with Patient: Greater than 30
[2024-01-07 23:37] LABS: Glucose,Whole Blood 243 mg/dL (70-110)
[2024-01-08 06:42] LABS: Glucose,Whole Blood 217 mg/dL (70-110)
[2024-01-08 07:20] LABS: Basophils % (A) 0 %; Eosinophils % (A) 0 %; HCT 35.1 % (34.0-46.0); HGB 10.9 gm/dL (11.4-16.0); Hypochromasia Marked; Lymphocytes # (A) 0.9 k/uL (1.0-4.8); Lymphocytes % (A) 8 %; MCH 29.9 pg (25.0-35.0); MCV 96.5 fL (80.0-100.0); Mean Platelet Volume 8.5; Monocytes # (A) 0.2 k/uL (0-1.0); Monocytes % (A) 1 %; Neutrophils # (A) 10.9 k/uL (1.3-7.7); Neutrophils % (A) 90 %; Platelet Count 110 k/uL (150-450); RBC 3.64 m/uL (3.80-5.40); RDW 15.2 % (11.5-15.5); WBC 12.1 k/uL (3.8-10.6)
--- NOTE | 2024-01-08 07:53 | P.PN ---
Subjective Progress Note Date: 01/08/24 the patient has a supra pubic tube that I changed yesterday It was leaking still I irrgiated it and found that that the track is patulous and urine leaks around the catheter. I pulled the balloon to the anterior bladder wall and the leakage stopped. Objective - Vital Signs Vital signs: Vital Signs Temp 98.5 F 01/08/24 04:00 Pulse 59 L 01/08/24 07:00 Resp 20 01/08/24 07:00 BP 94/66 01/08/24 07:00 Pulse Ox 100 01/08/24 07:00 FiO2 Intake & Output 01/07/24 01/08/24 01/08/24 18:59 06:59 18:59 Intake Total 2583.190 3407 Output Total 215 560 Balance 1581.371 940 Weight 49.8 kg Intake: IV 1650 1500 Azithromycin 500 mg In 250 Sodium Chloride 0.9% 250 ml @ 250 mls/hr IVPB DAILY [facility] Rx#:[id number] Dextrose 5% in Water 1, 1100 1300 000 ml @ 100 mls/hr IV . Q10H [facility] Rx#:[id number] Ertapenem 1 gm In Sodium 50 Chloride 0.9% 50 ml @ 100 mls/hr IVPB DAILY [facility] Rx #:[id number] Potassium Chloride 20 meq 200 200 In Water For Injection 1 100ml.bag @ 50 mls/hr IVPB Q2H [facility] Rx#: [id number] cefTRIAXone 1 gm In 50 Sodium Chloride 0.9% 50 ml @ 100 mls/hr IVPB Q12HR [facility] Rx#:[id number] Intake, IV Titration 146.371 Amount Norepinephrine 4 mg In 46.371 Sodium Chloride 0.9% 250 ml @ 0.03 MCG/KG/MIN 5. 392 mls/hr IV .Q24H [facility] Rx#:[id number] Potassium Chloride 20 meq 100 In Water For Injection 1 100ml.bag @ 50 mls/hr IVPB Q2H [facility] Rx#: [id number] Output: Urine 215 560 Other: Voiding Method Indwelling Catheter Indwelling Catheter # Voids 1 # Bowel Movements 1 - Labs CBC & Chem 7: 01/08/24 07:03 01/07/24 19:31 Labs: Abnormal Lab Results - Last 24 Hours (Table) 01/07/24 01/07/24 01/07/24 Range/Units 12:46 18:02 19:31 WBC (3.8-10.6) k/uL RBC (3.80-5.40) m/uL Hgb (11.4-16.0) gm/dL Plt Count (150-450) k/uL Neutrophils # (1.3-7.7) k/uL Lymphocytes # (1.0-4.8) k/uL Potassium 3.4 L (3.5-5.1) mmol/L POC Glucose (mg/dL) 276 H 243 H (70-110) mg/dL 01/07/24 01/08/24 01/08/24 Range/Units 23:36 06:41 07:03 WBC 12.1 H (3.8-10.6) k/uL RBC 3.64 L (3.80-5.40) m/uL Hgb 10.9 L (11.4-16.0) gm/dL Plt Count 110 L (150-450) k/uL Neutrophils # 10.9 H (1.3-7.7) k/uL Lymphocytes # 0.9 L (1.0-4.8) k/uL Potassium (3.5-5.1) mmol/L POC Glucose (mg/dL) 243 H 217 H (70-110) mg/dL Microbiology - Last 24 Hours (Table) 01/06/24 02:05 Urine Culture - Preliminary Urine,Voided Gram Neg Bacilli Assessment and Plan Assessment: Impression; uti wi sepsis, sp tube incontinence Plan: the leakage is due to a patulous sp tract. this has been temporarily controlled with mild tension. Since the patient is to get a cystectomy with ileal loop in the near future nothing further will be done. A large tube may be of benefit but that would only be temporary as the same problem will continue. She had no leakage last night.
[2024-01-08 08:04] LABS: African American GFR (CKD) 89 (>60 ml/min/1.73 sqM); Anion Gap 6 mmol/L; Blood Urea Nitrogen 27 mg/dL (7-17); Calcium 7.9 mg/dL (8.4-10.2); Chloride 124 mmol/L (98-107); Creatine Kinase 54 U/L (30-135); Glucose 230 mg/dL (74-99); Non-African American GFR(CKD) 77 (>60 ml/min/1.73 sqM); Potassium 3.7 mmol/L (3.5-5.1); Sodium 139 mmol/L (137-145)
[2024-01-08 08:26] LABS: Carbon Dioxide 9 mmol/L (22-30)
[2024-01-08] MEDS: POTASSIUM CHLORIDE 10 MEQ in WATER FOR INJECTION 1 100ML.BAG IVPB SCH (09:20)
--- NOTE | 2024-01-08 10:42 | P.PN ---
Subjective Progress Note Date: 01/08/24 Principal diagnosis: Sepsis. Pulmonary consult dated January 06, 2024. 38-year-old female who presented from [facility] as a transfer, via EMS, for possible dehydration, urinary tract infection, and urosepsis. The patient was seen in the emergency department, by Dr. Braden Patino. He evaluated the patient, thought the patient likely had sepsis from a urinary source, and, place a central line, fluid resuscitated the patient, and placed the patient on norepinephrine. He called me about the patient, we excepted the patient into the intensive care unit, for further monitoring and management. Currently, she is on 4 L of oxygen by nasal cannula. She getting saline at 75 cc an hour. She received 1.5 L of saline in the emergency department. She is on Levophed, at 2.8 mcg/min. She continues on Zithromax and Rocephin. Will check a procalcitonin level and a cortisol level. As mentioned, she came from the [place] emergency department. White count 9.2, hemoglobin 10.9, hematocrit 34.8, platelet count 98,000. Sodium 150, potassium 3, chlorides 126, CO2 8, anion gap 16, BUN 51, creatinine 1.79. Calcium 7.1. Procalcitonin level 2.71. AST is 63. ALT is 237. N-terminal proBNP is 2410. Urine is cloudy, with moderate blood. Leukocyte esterase was large positive. Nitrite was negative. There is greater than 182 WBCs, many WBC clumps, and occasional bacteria noted. Chest x-ray shows right basilar and right midlung airspace opacities. This could be consistent with possible aspiration. Progress note dated January 07, 2024. 38-year-old female seen in consultation yesterday. Please see my note above. The patient was initially transferred from an outside hospital for urinary tract infection/urosepsis. Patient needed the ICU for further monitoring and management of her sepsis, and, required norepinephrine. Currently she is on room air. She is getting D5W at 100 cc an hour. She is also getting norepinephrine at 2 mcg/min. She is on Rocephin and azithromycin, for urinary tract infection, and questionable pneumonia, right lower lobe. White count is 9.7, hemoglobin 10.7, hematocrit 34.3, platelet count 117,000. Sodium 144, potassium 2.7, chlorides 125, carbon dioxide 10, anion gap normal, BUN 37, creatinine 1.24. Glucose is 325. Calcium 7.2. Urine is showing gram-negative bacilli, yet to be identified. Progress note dated January 08, 2024. 38-year-old female again seen today in room 263. The patient is on room air. She is getting D5W at 100 cc an hour. The patient has a 9 anion gap hyperchloremic metabolic acidosis. There are gram-negative bacilli in her urine, which appear to be ESBL bacteria. For that reason, she is on ertapenem. Current labs include a white count 12.1, hemoglobin 10.9, hematocrit 35.1, and platelet count of 110,000. Sodium 139, potassium 3.7, chlorides 124, anion gap 6, bicarbonate concentration 9, BUN 27, creatinine 0.94. Glucose is 230. Calcium is 7.9. Objective - Vital Signs Vital signs: Vital Signs Temp 98.4 F 01/08/24 08:00 Pulse 59 L 01/08/24 08:30 Resp 16 01/08/24 08:30 BP 100/76 01/08/24 08:30 Pulse Ox 99 01/08/24 08:30 FiO2 Intake & Output 01/07/24 01/08/24 01/08/24 18:59 06:59 18:59 Intake Total 4670.323 4792 100 Output Total 215 560 35 Balance 1581.371 940 65 Weight 49.8 kg Intake: IV 1650 1500 100 Azithromycin 500 mg In 250 Sodium Chloride 0.9% 250 ml @ 250 mls/hr IVPB DAILY [facility] Rx#:[id number] Dextrose 5% in Water 1, 1100 1300 100 000 ml @ 100 mls/hr IV . Q10H [facility] Rx#:[id number] Ertapenem 1 gm In Sodium 50 Chloride 0.9% 50 ml @ 100 mls/hr IVPB DAILY [facility] Rx #:[id number] Potassium Chloride 20 meq 200 200 In Water For Injection 1 100ml.bag @ 50 mls/hr IVPB Q2H [facility] Rx#: [id number] cefTRIAXone 1 gm In 50 Sodium Chloride 0.9% 50 ml @ 100 mls/hr IVPB Q12HR [facility] Rx#:[id number] Intake, IV Titration 146.371 Amount Norepinephrine 4 mg In 46.371 Sodium Chloride 0.9% 250 ml @ 0.03 MCG/KG/MIN 5. 392 mls/hr IV .Q24H [facility] Rx#:[id number] Potassium Chloride 20 meq 100 In Water For Injection 1 100ml.bag @ 50 mls/hr IVPB Q2H [facility] Rx#: [id number] Output: Urine 215 560 35 Other: Voiding Method Indwelling Catheter Indwelling Catheter # Voids 1 # Bowel Movements 1 - Exam No acute distress. Patient is aphasic. HEENT examination is grossly unremarkable. Mucous membranes are moist. No oral lesions. Neck supple. Full range of motion. No adenopathy thyromegaly or neck vein distention. Cardiovascular examination reveals regular rhythm rate. S1-S2 normal. No S3 or S4. No discernible murmur noted. Heart rate 59 bpm. Heart sounds are distant. Lungs reveal mostly clear breath sounds. Occasional rhonchi. No wheezes or crackles. Room air saturation is 99 %. Abdomen soft bowel sounds are heard. No masses or tenderness. Extremities are intact. No cyanosis clubbing or edema. Skin is without rash or lesion. Neurologic examination is difficult to assess as the patient does not speak. - Labs CBC & Chem 7: 01/08/24 07:03 01/08/24 07:03 Labs: Abnormal Lab Results - Last 24 Hours (Table) 01/07/24 01/07/24 01/07/24 Range/Units 12:46 18:02 19:31 WBC (3.8-10.6) k/uL RBC (3.80-5.40) m/uL Hgb (11.4-16.0) gm/dL Plt Count (150-450) k/uL Neutrophils # (1.3-7.7) k/uL Lymphocytes # (1.0-4.8) k/uL Potassium 3.4 L (3.5-5.1) mmol/L Chloride (98-107) mmol/L Carbon Dioxide (22-30) mmol/L BUN (7-17) mg/dL Glucose (74-99) mg/dL POC Glucose (mg/dL) 276 H 243 H (70-110) mg/dL Calcium (8.4-10.2) mg/dL 01/07/24 01/08/24 01/08/24 Range/Units 23:36 06:41 07:03 WBC (3.8-10.6) k/uL RBC (3.80-5.40) m/uL Hgb (11.4-16.0) gm/dL Plt Count (150-450) k/uL Neutrophils # (1.3-7.7) k/uL Lymphocytes # (1.0-4.8) k/uL Potassium (3.5-5.1) mmol/L Chloride 124 H (98-107) mmol/L Carbon Dioxide 9 L* (22-30) mmol/L BUN 27 H (7-17) mg/dL Glucose 230 H (74-99) mg/dL POC Glucose (mg/dL) 243 H 217 H (70-110) mg/dL Calcium 7.9 L (8.4-10.2) mg/dL 01/08/24 Range/Units 07:03 WBC 12.1 H (3.8-10.6) k/uL RBC 3.64 L (3.80-5.40) m/uL Hgb 10.9 L (11.4-16.0) gm/dL Plt Count 110 L (150-450) k/uL Neutrophils # 10.9 H (1.3-7.7) k/uL Lymphocytes # 0.9 L (1.0-4.8) k/uL Potassium (3.5-5.1) mmol/L Chloride (98-107) mmol/L Carbon Dioxide (22-30) mmol/L BUN (7-17) mg/dL Glucose (74-99) mg/dL POC Glucose (mg/dL) (70-110) mg/dL Calcium (8.4-10.2) mg/dL Microbiology - Last 24 Hours (Table) 01/06/24 02:05 Urine Culture - Preliminary Urine,Voided Gram Neg Bacilli Assessment and Plan Assessment: Acute sepsis secondary to an ESBL gram-negative bacilli in the urine. Hypotension, secondary to sepsis. Possible aspiration pneumonia. History of fibromyalgia. History of gastroesophageal reflux disease. History of pneumonia. History of seizure disorder. History of Raynaud's syndrome. Prior history of methicillin-resistant Staph aureus and ESBL infection. History of anxiety. Multiple other medical problems and comorbidities. Plan: Plan dated January 06, 2024. The patient is currently on azithromycin and Rocephin. Will check a procalcitonin level and a cortisol level. The patient did receive fluid resuscitation with saline 1.5 L. The patient is on 4 L nasal cannula. She is getting saline at 75 cc an hour. Will change of fluid from saline to D5W. Additional recommendations and suggestions are forthcoming. Prognosis is guarded. Plan dated January 07, 2024. The patient continues on Rocephin. The patient is also on azithromycin. She clearly has a urinary tract infection and possible urosepsis. There also may be a pneumonia in the right lower lobe from aspiration. The patient is on room air. She is getting D5W at 100 cc an hour. The patient has norepinephrine at 2 mcg/min. Labs, x-rays, medications are reviewed. Prognosis is guarded. The patient will need to stay in the intensive care unit. Plan dated January 08, 2024. The patient continues on ertapenem. Labs, x-rays, medications are reviewed. We will continue to follow make recommendations. The patient is stable for transfer up to the general medical floor. No additional recommendations are made. Prognosis is guarded. Time with Patient: Less than 30
--- NOTE | 2024-01-08 11:37 | P.NPCON ---
History of Present Illness - Reason for Consult metabolic acidosis - History of Present Illness patient is a 38-year-old female with history of fibromyalgia, seizure disorder, Wernicke's encephalopathy who initially presented to [facility] for altered mentation. Patient was noted to be significantly hypotensive. She received IV fluids and was started on pressors and transferred to [place]. Patient has been started on antibiotics. She is also maintained on hydrocortisone and fludrocortisone prior to admission. Being treated for pneumonia and UTI. Patient has been acidotic with CO2 at 8 Sodium was elevated at 150 and is currently decreased to 139. Currently maintained on D5W at 100 mL an hour. Good urine output. no diarrhea noted. Patient remains pretty much unresponsive. Review of Systems as per HPI Past Medical History Past Medical History: Fibromyalgia, GERD/Reflux, Pneumonia, Seizure Disorder Additional Past Medical History / Comment(s): has seizures on a daily basis one or more a day, cHRONIC NECK/BACK PAIN, N/T FINGERS AND TOES, RAYNAUDS SYN. MENIERE'S,tinnitus, past uterine prolpase(sx) IBS, MUSCLE WEAKNESS, USES WALKER OR W/C History of Any Multi-Drug Resistant Organisms: ESBL, MRSA Date of last positivie culture/infection: 08/18/22 MRSA; 05/16/21 ESBL MDRO Source:: Urine MRSA; Urine ESBL Past Surgical History: Bariatric Surgery, Cholecystectomy, Hysterectomy Additional Past Surgical History / Comment(s): EYE SX (MUSCLES), radha en y 2012 Past Anesthesia/Blood Transfusion Reactions: No Reported Reaction Additional Past Anesthesia/Blood Transfusion Reaction / Comment(s): clausterphobia Past Psychological History: Anxiety, Depression Smoking Status: Current every day smoker Past Alcohol Use History: None Reported Additional Past Alcohol Use History / Comment(s): started smoking age 13- has quit off and on but currently smokes 1/2 ppd. Past Drug Use History: None Reported, Marijuana Additional Drug Use History / Comment(s): medical marijuana carrier, has not smoked kentrell rubi in a month - Past Family History Mother Family Medical History: Cancer Additional Family Medical History / Comment(s): TONGUE Father Family Medical History: Hypertension Medications and Allergies Home Medications Medication Instructions Recorded Confirmed Type Gabapentin [Neurontin] 1,200 mg PO TID 12/25/17 01/05/24 History QUEtiapine FUMARATE 50 mg PO HS 11/25/19 01/05/24 History Zolpidem Tartrate [Ambien Cr] 12.5 mg PO HS 11/25/19 01/05/24 History Fludrocortisone [Florinef] 0.1 mg PO BID 07/19/21 01/05/24 History Famotidine 40 mg PO HS 01/05/24 01/05/24 History Lubiprostone [Amitiza] 24 mcg PO BID 01/05/24 01/05/24 History Midodrine [ProAmatine] 5 mg PO TID 01/05/24 01/05/24 History Oxybutynin Chloride [oxyBUTYnin 10 mg PO DAILY 01/05/24 01/05/24 History chloride ER] Pyridoxine [Vitamin B-6] 50 mg PO DAILY 01/05/24 01/05/24 History Thiamine [Vitamin B-1] 100 mg PO DAILY 01/05/24 01/05/24 History Topiramate [Topamax] 50 mg PO TID 01/05/24 01/05/24 History Venlafaxine HCl [Effexor XR] 150 mg PO DAILY 01/05/24 01/05/24 History oxyCODONE-APAP 5-325MG [Percocet 1 tab PO QID 01/05/24 01/05/24 History 5-325 mg] Allergies Allergy/AdvReac Type Severity Reaction Status Date / Time levetiracetam [From [facility]] Allergy Rash/Hives Verified 01/05/24 18:40 Penicillins Allergy "STOPPED Verified 01/05/24 18:40 BREATHING" NSAIDS (Non-Steroidal AdvReac "MAY CAUSE Verified 01/05/24 18:40 Anti-Inflamma ULCERS R/T BARIATRIC SX" Physical Exam Vitals: Vital Signs Temp Pulse Resp BP Pulse Ox 01/08/24 08:30 59 L 16 100/76 99 01/08/24 08:00 98.4 F 60 19 102/79 99 01/08/24 07:30 82 12 89/64 01/08/24 07:00 59 L 20 94/66 100 01/08/24 06:45 53 L 15 106/77 99 01/08/24 06:30 58 L 25 H 92/65 01/08/24 06:15 53 L 20 108/70 01/08/24 06:00 60 20 110/73 98 01/08/24 05:45 55 L 21 103/74 99 01/08/24 05:30 56 L 26 H 98/66 97 01/08/24 05:15 53 L 19 98/68 01/08/24 05:00 57 L 19 107/75 98 01/08/24 04:45 65 12 106/73 98 01/08/24 04:30 58 L 19 96/67 100 01/08/24 04:15 58 L 17 102/75 99 01/08/24 04:00 98.5 F 67 26 H 91/73 97 01/08/24 03:45 62 21 99/70 100 01/08/24 03:30 60 21 109/83 01/08/24 03:15 67 20 95/68 100 01/08/24 03:00 66 16 89/65 94 L 01/08/24 02:45 64 16 99/78 94 L 01/08/24 02:30 71 19 94/70 97 01/08/24 02:15 66 16 101/77 95 01/08/24 02:00 67 21 91/70 99 01/08/24 01:45 70 18 97/73 98 01/08/24 01:30 76 19 92/69 98 01/08/24 01:15 69 17 99/75 99 01/08/24 01:00 75 19 91/68 99 01/08/24 00:45 68 17 97/71 98 01/08/24 00:30 70 18 91/68 98 01/08/24 00:15 67 18 94/68 98 01/08/24 00:08 66 16 94/68 99 01/08/24 00:00 99.5 F 64 17 94/68 98 01/07/24 23:45 66 17 98/65 99 01/07/24 23:30 67 17 90/64 98 01/07/24 23:15 65 16 97/66 98 01/07/24 23:00 68 19 78/55 91 L 01/07/24 22:45 66 15 82/56 99 01/07/24 22:30 65 6 L 88/63 99 01/07/24 22:15 65 16 88/62 99 01/07/24 22:00 66 16 96/68 99 01/07/24 21:45 65 11 L 87/63 99 07/22/24 21:30 66 16 85/64 99 01/07/24 21:15 67 12 86/66 99 01/07/24 21:00 67 15 106/85 99 01/07/24 20:45 82 13 87/66 98 01/07/24 20:30 73 20 77/60 100 01/07/24 20:15 66 14 81/57 99 01/07/24 20:00 98.9 F 71 10 L 81/60 99 01/07/24 19:45 69 8 L 90/66 99 01/07/24 19:30 80 15 94/67 99 01/07/24 19:15 79 16 85/67 100 01/07/24 19:00 75 16 90/67 98 01/07/24 18:45 70 16 96/68 97 01/07/24 18:30 66 16 95/70 97 01/07/24 18:15 73 16 94/66 96 01/07/24 18:00 69 14 88/65 97 01/07/24 17:45 71 12 92/66 91 L 01/07/24 17:30 70 17 91/63 100 01/07/24 17:15 70 15 86/58 93 L 01/07/24 17:00 68 14 89/63 97 01/07/24 16:45 73 16 89/64 100 01/07/24 16:30 75 17 132/113 99 01/07/24 16:15 99.1 F 89 23 105/74 98 01/07/24 16:00 73 20 84/62 96 01/07/24 15:45 75 16 88/59 99 01/07/24 15:30 74 15 94/65 98 01/07/24 15:15 75 18 91/63 99 01/07/24 15:00 76 16 92/63 100 01/07/24 14:45 76 20 101/70 97 01/07/24 14:30 76 18 94/66 100 01/07/24 14:15 74 18 90/64 99 01/07/24 14:00 70 17 97/68 96 01/07/24 13:45 80 19 95/70 96 01/07/24 13:30 76 18 93/64 96 01/07/24 13:15 77 18 95/68 99 07/22/24 13:00 72 17 97/67 100 01/07/24 12:45 69 17 100/64 98 01/07/24 12:30 72 14 88/63 95 01/07/24 12:15 69 18 84/57 01/07/24 12:00 99.0 F 67 14 93/63 98 01/07/24 11:45 71 16 92/65 100 01/07/24 11:30 65 17 107/64 98 Intake and Output 01/07/24 01/08/24 01/08/24 22:59 06:59 14:59 Intake Total 689.451 0306 100 Output Total 305 370 35 Balance 600.541 630 65 Intake: IV 900 1000 100 Dextrose 5% in Water 1, 800 900 100 000 ml @ 100 mls/hr IV . Q10H [facility] Rx#:[id number] Potassium Chloride 20 meq 100 100 In Water For Injection 1 100ml.bag @ 50 mls/hr IVPB Q2H [facility] Rx#: [id number] Intake, IV Titration 5.541 Amount Norepinephrine 4 mg In 5.541 Sodium Chloride 0.9% 250 ml @ 0.03 MCG/KG/MIN 5. 392 mls/hr IV .Q24H [facility] Rx#:[id number] Output: Urine 305 370 35 Other: Voiding Method Indwelling Catheter Indwelling Catheter Indwelling Catheter # Voids 1 # Bowel Movements 1 Weight 49.8 kg patient is sleeping, comfortable barely responsive. does open eyes but does not communicate. Examination of the heart S1 and S2 Examination of the lungs decreased breath sounds at the bases no crackles or wheezing is heard Abdomen is soft nontender Examination of lower extremity shows no edema. Results - Lab Results Most recent lab results Calcium 7.9 mg/dL (8.4-10.2) L 01/08/24 07:03 Magnesium 2.8 mg/dL (1.6-2.3) H 01/06/24 05:38 01/08/24 07:03 01/08/24 07:03 Assessment and Plan Assessment: 1. Severe metabolic acidosis, non-gap associated with acute kidney injury, adrenal insufficiency and sepsis. 2. Acute kidney injury ATN associated with hypotension and sepsis, improving 3. Neurogenic bladder requiring suprapubic catheter and history of repeated urinary infections, tentatively scheduled for cystectomy and ileal loop urostomy as outpatient. 4. Seizure disorder 5. Encephalopathy 6. Proteus mirabilis UTI with history of previous MRSA and ESBL infections 7. Possible aspiration pneumonia 8. Hypotension, most likely related to underlying infection and sepsis. It is unclear if patient has h/o adrenal insufficiency. I do see fludrocortisone on her med list but no hydrocortisone. we can try to obtain serum cortisol level from labs drawn on initial admission. Plan: start IV bicarb. It is unclear if patient was maintained on hydrocortisone prior to admission. I do see fludrocortisone on the med list. Serum cortisol level will not be accurate now as patient is currently maintained on hydrocortisone. Continue with midodrine Continue with antibiotics Repeat labs in a.m. thank you for the consultation. We will continue to follow the patient with you during her hospitalization.
[2024-01-08 11:55] LABS: Glucose,Whole Blood 216 mg/dL (70-110)
[2024-01-08] MEDS: DEXTROSE 5% IN WATER 1,000 ML with SODIUM BICARB (1 MEQ/ML) 100 ML IV SCH (13:00)
--- NOTE | 2024-01-08 13:12 | CDI ---
Documentation Clarification Form Date: 01/08/2024 12:47:47 PM From: Freda Bell RN, CCDS Phone: [phone] Admit Date: 01/05/2024 06:27:00 PM Patient Name: Kamala Perla Visit Number: [id number] Discharge Date: ATTENTION: The Clinical Documentation Specialists (CDI) and [facility] Coding Staff appreciate your assistance in clarifying documentation. Please respond to the clarification below the line at the bottom and electronically sign. The CDI & [facility] Coding staff will review the response and follow-up if needed. Please note: Queries are made part of the Legal Health Record. If you have any questions, please contact the author of this message via ITS. Dr. Matthew Jolly The patient has sepsis documented in the ID Consult and subsequent progress notes. Based on this information and the findings below, is there an additional diagnosis that is clinically appropriate for this patient? History/Risk Factors: Atrial Fibrillation, Coronary Artery Disease, COPD, Diabetes Mellitus, GI Bleed, Hearing Disorder / Deafness, Hyperlipidemia, Hypertension, Myocardial Infarction, Renal Disease, Former smoker Clinical Indicators: 74-year-old complaining of shortness of breath there was concern for possible pneumonia with abdominal distention CT was done did not show any abdominal process. Chest d-ray confirming left lower lobe pneumonia blood cultures are positive with MRSA. 01/04 VS: 130/66 91 20 93% Ra 100.3 01/04 Labs: WBC 16.6, Neutrophils 15.5, NA 135, BUN 98, Creatinine 1.93 GFR 36 Lactic acid: 1.6 Blood cultures: Methicillin resist S. aureus 01/04 ID Consult: patient presented hospital with sepsis in this patient who did have a fever elevated white count meeting currently for SIRS source possible pneumonia (1) Pneumonia (2) Sepsis Treatment: Vancomycin HCL 1,250 MG IVPB Once PTD 01/05-01/07 Zosyn 3.375 GM IVPB Q8 HRS .9 NS @75 ML/HR 01/05-01/07 Is there an additional diagnosis that is clinically appropriate for this patient? [ ] Sepsis, present on admission [ ] Severe Sepsis with organ failure, POA [ ] No additional diagnosis/not clinically significant [ ] Other, please specify [ ] Unable to determine SIRS Criteria: 2 or more of the following may indicate SIRS Temperature < 96.8F (36C) or > 101.0F (38.3C) Heart Rate > 90 bpm Respiratory Rate > 20 breaths/min or PaCO2 < 32 mmHg White Blood Cell Count > 12,000 or < 4,000 cells/mm3 or > 10% bands (Template Last Reviewed: June 2022) MTDD
--- NOTE | 2024-01-08 14:39 | P.PN ---
Subjective Progress Note Date: 01/08/24 38-year-old female with past medical history significant for seizure disorder, history of fibromyalgia, GERD, pneumonia, Raynaud's, Mnire's disease, history of ESBL, MRSA who was transferred from [facility] via EMS for altered mental status, sepsis/UTI, and possible dehydration. In the ED patient was hypotensive, required IV fluids, was persistently hypotensive had a central line placed and required Levophed. Patient was later on transferred to ICU for further evaluation and management. Patient is ANO x 0. Opening eyes to verbal stimuli, resisting eye opening and withdraws to touch. Patient currently on 4 L oxygen by nasal cannula, on IV fluids as unable to take p.o. intake due to al tered mental status. Remains on Levophed. Patient is currently on Rocephin and azithromycin for concern of pneumonia and UTI. Patient home medication list shows patient takes fludrocortisone, currently on hydrocortisone. On initial presentation patient's white count was 9.2, hemoglobin 10.9, platelet 98,000. Patient has elevated sodium 150, potassium is 3, CO2 8, anion gap 16, BUN 50 and creatinine 1.79. Procalcitonin level 2.71. AST 63 ALT is 237. Urine was cloudy with moderate blood. Leukocyte esterase was positive. Many WBCs and occasional bacteria noted in the urine. Chest x-ray showed right basilar and right midlung airspace opacities. Patient noted to have crackles and gurgling, concern for aspiration. 01/06. Patient seen and examined. Blood work done this morning showed WBC 9.7, hemoglobin 10.7, sodium 144, potassium 2.7, BUN 37, creatinine 1.24 glucose 300. Patient opens eyes, at baseline she only answers with yes or no current nursing staff 01/07. Patient seen and examined. Urine cultures growing gram-negative bacilli. EEG doneShowed background slowing suggestive of generalized cerebral dysfunction seen in toxic metabolic encephalopathy. Patient is opening eyes, but not following any commands REVIEW OF SYSTEMS: Cannot be obtained as patient is lethargic PHYSICAL EXAMINATION: GENERAL: The patient is lethargic HEENT: Pupils are round and equally reacting to light. EOMI. No scleral icterus. No conjunctival pallor. Normocephalic, atraumatic. No pharyngeal erythema. No thyromegaly. CARDIOVASCULAR: S1 and S2 present. No murmurs, rubs, or gallops. PULMONARY: Chest is clear to auscultation, no wheezing or crackles. ABDOMEN: Soft, nontender, nondistended, normoactive bowel sounds. No palpable organomegaly. MUSCULOSKELETAL: No joint swelling or deformity. EXTREMITIES: No cyanosis, clubbing, or pedal edema. NEUROLOGICAL: Gross neurological examination did not reveal any focal deficits. SKIN: No rashes. Assessment and plan Septic shock requiring vasopressors: UTI: Aspiration pneumonia: History of MRSA and ESBL: Thrombocytopenia: Monitor vital sign Monitor CBC Monitor CMP Follow-up on blood cultures Follow-up on urine cultures Continue ertapenem Continue Solu-Cortef, midodrine ID following Urology following Critical care following Hypernatremia: YARELIS: Secondary to dehydration Continue IV fluids Seizure disorder: History of seizure disorder on Topamax Allergic to Keppra EEG ordered and reviewed by neurology Neurology eval the patient, started patient on Vimpat, continue Topamax History of Mnire's disease: History of Raynaud's DVT prophylaxis. SCD, thrombocytopenia. Labs and medication were reviewed.. Continue same treatment. Continue with symptomatic treatment. Resume home medication. Monitor labs and vitals. DVT and GI prophylaxis. Further recommendations as per clinical course of the patient Dictation was produced using [employer] dictation software. please excuse any grammatical, word or spelling errors. Objective - Vital Signs Vital signs: Vital Signs Temp 98.4 F 01/08/24 08:00 Pulse 59 L 01/08/24 08:30 Resp 16 01/08/24 08:30 BP 100/76 01/08/24 08:30 Pulse Ox 99 01/08/24 08:30 FiO2 Intake & Output 01/07/24 01/08/24 01/08/24 18:59 06:59 18:59 Intake Total 7001.975 4386 100 Output Total 215 560 35 Balance 1581.371 940 65 Weight 49.8 kg Intake: IV 1650 1500 100 Azithromycin 500 mg In 250 Sodium Chloride 0.9% 250 ml @ 250 mls/hr IVPB DAILY [facility] Rx#:[id number] Dextrose 5% in Water 1, 1100 1300 100 000 ml @ 100 mls/hr IV . Q10H [facility] Rx#:[id number] Ertapenem 1 gm In Sodium 50 Chloride 0.9% 50 ml @ 100 mls/hr IVPB DAILY [facility] Rx #:[id number] Potassium Chloride 20 meq 200 200 In Water For Injection 1 100ml.bag @ 50 mls/hr IVPB Q2H [facility] Rx#: [id number] cefTRIAXone 1 gm In 50 Sodium Chloride 0.9% 50 ml @ 100 mls/hr IVPB Q12HR [facility] Rx#:[id number] Intake, IV Titration 146.371 Amount Norepinephrine 4 mg In 46.371 Sodium Chloride 0.9% 250 ml @ 0.03 MCG/KG/MIN 5. 392 mls/hr IV .Q24H [facility] Rx#:[id number] Potassium Chloride 20 meq 100 In Water For Injection 1 100ml.bag @ 50 mls/hr IVPB Q2H [facility] Rx#: [id number] Output: Urine 215 560 35 Other: Voiding Method Indwelling Catheter Indwelling Catheter # Voids 1 # Bowel Movements 1 - Labs CBC & Chem 7: 01/08/24 07:03 01/08/24 07:03 Labs: Abnormal Lab Results - Last 24 Hours (Table) 01/07/24 01/07/24 01/07/24 Range/Units 12:46 18:02 19:31 WBC (3.8-10.6) k/uL RBC (3.80-5.40) m/uL Hgb (11.4-16.0) gm/dL Plt Count (150-450) k/uL Neutrophils # (1.3-7.7) k/uL Lymphocytes # (1.0-4.8) k/uL Potassium 3.4 L (3.5-5.1) mmol/L Chloride (98-107) mmol/L Carbon Dioxide (22-30) mmol/L BUN (7-17) mg/dL Glucose (74-99) mg/dL POC Glucose (mg/dL) 276 H 243 H (70-110) mg/dL Calcium (8.4-10.2) mg/dL 01/07/24 01/08/24 01/08/24 Range/Units 23:36 06:41 07:03 WBC (3.8-10.6) k/uL RBC (3.80-5.40) m/uL Hgb (11.4-16.0) gm/dL Plt Count (150-450) k/uL Neutrophils # (1.3-7.7) k/uL Lymphocytes # (1.0-4.8) k/uL Potassium (3.5-5.1) mmol/L Chloride 124 H (98-107) mmol/L Carbon Dioxide 9 L* (22-30) mmol/L BUN 27 H (7-17) mg/dL Glucose 230 H (74-99) mg/dL POC Glucose (mg/dL) 243 H 217 H (70-110) mg/dL Calcium 7.9 L (8.4-10.2) mg/dL 01/08/24 Range/Units 07:03 WBC 12.1 H (3.8-10.6) k/uL RBC 3.64 L (3.80-5.40) m/uL Hgb 10.9 L (11.4-16.0) gm/dL Plt Count 110 L (150-450) k/uL Neutrophils # 10.9 H (1.3-7.7) k/uL Lymphocytes # 0.9 L (1.0-4.8) k/uL Potassium (3.5-5.1) mmol/L Chloride (98-107) mmol/L Carbon Dioxide (22-30) mmol/L BUN (7-17) mg/dL Glucose (74-99) mg/dL POC Glucose (mg/dL) (70-110) mg/dL Calcium (8.4-10.2) mg/dL Microbiology - Last 24 Hours (Table) 01/06/24 02:05 Urine Culture - Preliminary Urine,Voided Gram Neg Bacilli
--- NOTE | 2024-01-08 15:31 | P.PN ---
Subjective Progress Note Date: 01/08/24 Principal diagnosis: Reason for follow-up visit ESBL Proteus UTI Patient is a 38-year-old female with a past medical history significant for seizure disorder pneumonia reflux fibromyalgia, patient was brought into the hospital 3 days ago as a transfer from [facility] with the patient was brought in concern for dehydration and urinary tract infection subsequent to being admitted to ICU On today's evaluation that is 01/08/2024, the patient remains to be afebrile patient is slightly awake but not able to answer any question, patient requiring any supplemental oxygen no vomiting diarrhea lethargy is reported by nursing staff. Patient white count is 12.1 creatinine 0.94 urine finalized with ESBL Proteus Objective - Vital Signs Vital signs: Vital Signs Temp 98.4 F 01/08/24 08:00 Pulse 59 L 01/08/24 08:30 Resp 16 01/08/24 08:30 BP 100/76 01/08/24 08:30 Pulse Ox 99 01/08/24 08:30 FiO2 Intake & Output 01/07/24 01/08/24 01/08/24 18:59 06:59 18:59 Intake Total 3341.494 2553 100 Output Total 215 560 35 Balance 1581.371 940 65 Weight 49.8 kg Intake: IV 1650 1500 100 Azithromycin 500 mg In 250 Sodium Chloride 0.9% 250 ml @ 250 mls/hr IVPB DAILY [facility] Rx#:[id number] Dextrose 5% in Water 1, 1100 1300 100 000 ml @ 100 mls/hr IV . Q10H [facility] Rx#:[id number] Ertapenem 1 gm In Sodium 50 Chloride 0.9% 50 ml @ 100 mls/hr IVPB DAILY [facility] Rx #:[id number] Potassium Chloride 20 meq 200 200 In Water For Injection 1 100ml.bag @ 50 mls/hr IVPB Q2H [facility] Rx#: [id number] cefTRIAXone 1 gm In 50 Sodium Chloride 0.9% 50 ml @ 100 mls/hr IVPB Q12HR [facility] Rx#:[id number] Intake, IV Titration 146.371 Amount Norepinephrine 4 mg In 46.371 Sodium Chloride 0.9% 250 ml @ 0.03 MCG/KG/MIN 5. 392 mls/hr IV .Q24H [facility] Rx#:[id number] Potassium Chloride 20 meq 100 In Water For Injection 1 100ml.bag @ 50 mls/hr IVPB Q2H [facility] Rx#: [id number] Output: Urine 215 560 35 Other: Voiding Method Indwelling Catheter Indwelling Catheter Indwelling Catheter # Voids 1 # Bowel Movements 1 - Exam GENERAL DESCRIPTION: Middle-aged female lying in bed in no distress RESPIRATORY SYSTEM: Unlabored breathing , decreased breath sounds at bases HEART: S1 S2 regular rate and rhythm , ABDOMEN: Soft , no tenderness EXTREMITIES: No edema feet - Labs CBC & Chem 7: 01/08/24 07:03 01/08/24 07:03 Labs: Abnormal Lab Results - Last 24 Hours (Table) 01/07/24 01/07/24 01/07/24 Range/Units 18:02 19:31 23:36 WBC (3.8-10.6) k/uL RBC (3.80-5.40) m/uL Hgb (11.4-16.0) gm/dL Plt Count (150-450) k/uL Neutrophils # (1.3-7.7) k/uL Lymphocytes # (1.0-4.8) k/uL Potassium 3.4 L (3.5-5.1) mmol/L Chloride (98-107) mmol/L Carbon Dioxide (22-30) mmol/L BUN (7-17) mg/dL Glucose (74-99) mg/dL POC Glucose (mg/dL) 243 H 243 H (70-110) mg/dL Calcium (8.4-10.2) mg/dL 01/08/24 01/08/24 01/08/24 Range/Units 06:41 07:03 07:03 WBC 12.1 H (3.8-10.6) k/uL RBC 3.64 L (3.80-5.40) m/uL Hgb 10.9 L (11.4-16.0) gm/dL Plt Count 110 L (150-450) k/uL Neutrophils # 10.9 H (1.3-7.7) k/uL Lymphocytes # 0.9 L (1.0-4.8) k/uL Potassium (3.5-5.1) mmol/L Chloride 124 H (98-107) mmol/L Carbon Dioxide 9 L* (22-30) mmol/L BUN 27 H (7-17) mg/dL Glucose 230 H (74-99) mg/dL POC Glucose (mg/dL) 217 H (70-110) mg/dL Calcium 7.9 L (8.4-10.2) mg/dL 01/08/24 Range/Units 11:53 WBC (3.8-10.6) k/uL RBC (3.80-5.40) m/uL Hgb (11.4-16.0) gm/dL Plt Count (150-450) k/uL Neutrophils # (1.3-7.7) k/uL Lymphocytes # (1.0-4.8) k/uL Potassium (3.5-5.1) mmol/L Chloride (98-107) mmol/L Carbon Dioxide (22-30) mmol/L BUN (7-17) mg/dL Glucose (74-99) mg/dL POC Glucose (mg/dL) 216 H (70-110) mg/dL Calcium (8.4-10.2) mg/dL Microbiology - Last 24 Hours (Table) 01/06/24 02:05 Urine Culture - Final Urine,Voided Proteus mirabilis Assessment and Plan (1) Penicillin allergy Current Visit: Yes Status: Acute Code(s): Z88.0 - ALLERGY STATUS TO PENI CILLIN SNOMED Code(s): 40193953 (2) UTI (urinary tract infection) Current Visit: Yes Status: Acute Code(s): N39.0 - URINARY TRACT INFECTION, SITE NOT SPECIFIED SNOMED Code(s): 17659111 (3) Sepsis Current Visit: No Status: Acute Code(s): A41.9 - SEPSIS, UNSPECIFIED ORGANISM SNOMED Code(s): 50023951 (4) Infection due to extended spectrum beta lactamase (ESBL) producing Proteus mirabilis Current Visit: Yes Status: Acute Code(s): A49.8 - OTHER BACTERIAL INFECTIONS OF UNSPECIFIED SITE; Z16.12 - EXTENDED SPECTRUM BETA LACTAMASE (ESBL) RESISTANCE SNOMED Code(s): 7962490510 Plan: 1patient presented to hospital with sepsis in this patient who did have hypotension tachycardia significantly positive UA most likely symptomatic ureteric infection catheter associated with the previous culture positive for ESBL Proteus 2-with concern for the patient having seizures we will discontinue ertapenem start the patient on Zerbaxa possible transfer to tertiary care Dictation was produced using [employer] dictation software. please excuse any grammatical, word or spelling errors. Time with Patient: Less than 30
[2024-01-08 15:49] LABS: ABG Base Excess -11.9 mmol/L; ABG HCO3 11 mmol/L (21-25); ABG Oxygen Saturation 95.7 % (94-97); ABG PH 7.38 (7.35-7.45); ABG PO2 76 mmHg (83-108); ABG TCO2 12 mmol/L (19-24); Allen Test Performed? Yes
[2024-01-08 15:57] LABS: ABG PCO2 19 mmHg (35-45)
[2024-01-08] MEDS: CEFTOLOZANE/TAZOBACTAM 1.5 GM in SODIUM CHLORIDE 0.9% 100 ML IV SCH (16:34)
[2024-01-08 16:47] LABS: Vitamin B12 >3600.0 pg/mL (200.0-944.0)
[2024-01-08 17:32] LABS: ALT 150 U/L (4-34); AST 67 U/L (14-36); African American GFR (CKD) >90 (>60 ml/min/1.73 sqM); Albumin 2.3 g/dL (3.5-5.0); Alkaline Phosphatase 352 U/L (38-126); Anion Gap 10 mmol/L; Bilirubin, Delta 0.7 mg/dL (0.0-0.2); Bilirubin,Unconjugated 0.1 mg/dL (0.0-1.1); Blood Urea Nitrogen 25 mg/dL (7-17); Chloride 122 mmol/L (98-107); Glucose 221 mg/dL (74-99); Non-African American GFR(CKD) >90 (>60 ml/min/1.73 sqM); Sodium 138 mmol/L (137-145); Total Bilirubin 0.8 mg/dL (0.2-1.3); Total Protein 4.6 g/dL (6.3-8.2)
[2024-01-08 17:33] LABS: Carbon Dioxide 6 mmol/L (22-30)
[2024-01-08 17:34] LABS: Potassium 4.3 mmol/L (3.5-5.1)
[2024-01-08 18:04] LABS: Glucose,Whole Blood 215 mg/dL (70-110)
[2024-01-08] MEDS: PHENYTOIN SODIUM INJ 500 MG in SODIUM CHLORIDE 0.9% 50 ML IVPB STA (20:15)
--- NOTE | 2024-01-08 22:48 | EEG ---
ELECTROENCEPHALOGRAM REPORT PREAMBLE: This is a 38-year-old female with history of seizure disorder, has altered mental status. The patient had had abnormal EEG yesterday, therefore this is a prolonged 1- hour EEG performed today. CURRENT MEDICATIONS: 1. Topamax 50 mg b.i.d. 2. Vimpat 200 mg b.i.d. EEG FINDINGS: This is a prolonged 21-channel digital EEG recorded with video component, utilizing 20 international system with referential and bipolar montages. Recording start time 12:32 p.m. on 01/08/2024, and recording end verna 1:40 p.m. on 01/08/2024. (One hour) The background consists of a very disorganized, mixed frequency of dysrhythmic 2-3 hertz delta, intermixed with some 4-5 hertz theta activity seen in bihemispheric region. Frequent higher amplitude-sharp appearing waves were seen, which appear to be somewhat in generalized distribution. At times these become repetitive sharp waves. During middle of the recording, some rhythmic sharp waves were seen at almost 1 hertz and lasting for several seconds. During later part of the study, the patient spontaneously opened her eyes, leaned forwards, was staring in the space, and after a couple of minutes, laid back down, and her eyes were open with gaze upwards. At times, the patient was noted to have some hiccupings. Different stages of sleep were not seen. No clear-cut electrographic seizure was recorded. IMPRESSION: A very abnormal EEG due to, 1. Disorganized background with [id number] background slowing, suggestive of generalized cerebral dysfunction as can be seen with toxic metabolic encephalopathy related to diffuse structural brain abnormality. Clinical correlation is recommended. 2. Presence of very frequent high-amplitude sharp appearing waves, which at times becomes rhythmic at 1 hertz, and sometimes becomes sequential, somewhat in generalized distribution. This suggests underlying cortical irritability and tendency for seizure. Clinically, there were many events as mentioned above, concerning for possible seizures. Overall, this study may suggest nonconvulsive status epilepticus. Clinical correlation and continuous EEG monitoring strongly recommended. YULIA / SALBADORN: [id number] / [facility]
[2024-01-08 23:47] LABS: Glucose,Whole Blood 248 mg/dL (70-110)
[2024-01-09 04:30] LABS: Basophils % (A) 0 %; Eosinophils % (A) 0 %; HCT 35.2 % (34.0-46.0); HGB 11.4 gm/dL (11.4-16.0); Hypochromasia Slight; Lymphocytes # (A) 0.8 k/uL (1.0-4.8); Lymphocytes % (A) 6 %; MCH 29.8 pg (25.0-35.0); MCHC 32.3 g/dL (31.0-37.0); MCV 92.3 fL (80.0-100.0); Mean Platelet Volume 8.6; Monocytes # (A) 0.2 k/uL (0-1.0); Monocytes % (A) 2 %; Neutrophils % (A) 92 %; Platelet Count 118 k/uL (150-450); RBC 3.82 m/uL (3.80-5.40); RDW 15.1 % (11.5-15.5)
[2024-01-09 04:41] LABS: ALT 119 U/L (4-34); AST 47 U/L (14-36); African American GFR (CKD) >90 (>60 ml/min/1.73 sqM); Albumin 2.5 g/dL (3.5-5.0); Alkaline Phosphatase 360 U/L (38-126); Anion Gap 10 mmol/L; Blood Urea Nitrogen 20 mg/dL (7-17); Carbon Dioxide 12 mmol/L (22-30); Chloride 117 mmol/L (98-107); Glucose 210 mg/dL (74-99); Non-African American GFR(CKD) >90 (>60 ml/min/1.73 sqM); Phenytoin (Dilantin) 3.6 ug/mL; Potassium 3.1 mmol/L (3.5-5.1); Sodium 139 mmol/L (137-145); Total Bilirubin 0.6 mg/dL (0.2-1.3); Total Protein 4.7 g/dL (6.3-8.2)
[2024-01-09 05:33] LABS: Glucose,Whole Blood 227 mg/dL (70-110)
[2024-01-09] MEDS: POTASSIUM CHLORIDE 20 MEQ in WATER FOR INJECTION 1 100ML.BAG IVPB SCH (06:27)
--- NOTE | 2024-01-09 06:52 | P.PN ---
Subjective Progress Note Date: 01/08/24 Patient was seen for follow-up. Patient continues to be severely encephalopathic. Patient very somnolent, lethargic. On calling her name, she slightly opens her eyes, and the gaze was up words. On giving some painful stimulus with nailbed pressure, patient started having some twitching of her eyelids and the chin, concerning for a seizure. Patient does not follow directions. Yesterday per discussion with patient's informed: I spoke to patient's on the phone, who mentions that they have been for last 17 years. He informed me that patient had gastric bypass surgery in 2013, after which she started having problem with walking. She started with a cane, then walker. In October 2019 she was hospitalized and after that she could not walk, and has been wheelchair-bound since then. Patient has been to [facility] and was diagnosed with nutritional deficiency, Wernicke's encephalopathy. She did have MRI performed at [facility] and workup has been performed. There was no diagnosis of MS. Patient's hospital records from [facility] mentioned about "neurofibromatosis", and patient's is not aware any confirmed diagnosis of NF. No previous history of tumors or brain tumors. Patient otherwise talks normally. She does have seizure disorder since 2007. She currently follows up with Dr. Higgins. Patient used to be on Vimpat and Trileptal, but they have been discontinued and she is just on Topamax 50 mg 3 times daily. She gets seizures once in a while. Last seizure was about a week ago which was a "mini seizure", in which she zoned out for couple minutes and when she came back, was feeling dizzy. Patient's admits that she has history of alcoholism when she was in her 20s. She has been sober since last 11 years. Objective - Vital Signs Vital signs: Vital Signs Temp 98.4 F 01/08/24 08:00 Pulse 59 L 01/08/24 14:00 Resp 22 01/08/24 14:00 BP 97/68 01/08/24 14:00 Pulse Ox 98 01/08/24 10:00 FiO2 Intake & Output 01/07/24 01/08/24 01/08/24 18:59 06:59 18:59 Intake Total 5955.284 2641 100 Output Total 215 560 35 Balance 1581.371 940 65 Weight 49.8 kg Intake: IV 1650 1500 100 Azithromycin 500 mg In 250 Sodium Chloride 0.9% 250 ml @ 250 mls/hr IVPB DAILY JACQUELIN Rx#:[id number] Dextrose 5% in Water 1, 1100 1300 100 000 ml @ 100 mls/hr IV . Q10H JACQUELIN Rx#:[id number] Ertapenem 1 gm In Sodium 50 Chloride 0.9% 50 ml @ 100 mls/hr IVPB DAILY JACQUELIN Rx #:[id number] Potassium Chloride 20 meq 200 200 In Water For Injection 1 100ml.bag @ 50 mls/hr IVPB Q2H JACQUELIN Rx#: [id number] cefTRIAXone 1 gm In 50 Sodium Chloride 0.9% 50 ml @ 100 mls/hr IVPB Q12HR JACQUELIN Rx#:[id number] Intake, IV Titration 146.371 Amount Norepinephrine 4 mg In 46.371 Sodium Chloride 0.9% 250 ml @ 0.03 MCG/KG/MIN 5. 392 mls/hr IV .Q24H JACQUELIN Rx#:[id number] Potassium Chloride 20 meq 100 In Water For Injection 1 100ml.bag @ 50 mls/hr IVPB Q2H JACQUELIN Rx#: [id number] Output: Urine 215 560 35 Other: Voiding Method Indwelling Catheter Indwelling Catheter Indwelling Catheter # Voids 1 # Bowel Movements 1 - Exam Patient severely encephalopathic, very lethargic, laying in the bed. Opens her eyes to calling her name, but does not track. Her gaze was off work, and patient started having some eye twitching with noxious stimulus. Tone is equal bilaterally. Examination limited because of mental status. Pupils are equal round and reacting. Face is symmetric. - Labs CBC & Chem 7: 01/09/24 03:52 01/09/24 03:52 Labs: Abnormal Lab Results - Last 24 Hours (Table) 01/07/24 01/07/24 01/07/24 Range/Units 18:02 19:31 23:36 WBC (3.8-10.6) k/uL RBC (3.80-5.40) m/uL Hgb (11.4-16.0) gm/dL Plt Count (150-450) k/uL Neutrophils # (1.3-7.7) k/uL Lymphocytes # (1.0-4.8) k/uL Potassium 3.4 L (3.5-5.1) mmol/L Chloride (98-107) mmol/L Carbon Dioxide (22-30) mmol/L BUN (7-17) mg/dL Glucose (74-99) mg/dL POC Glucose (mg/dL) 243 H 243 H (70-110) mg/dL Calcium (8.4-10.2) mg/dL 01/08/24 01/08/24 01/08/24 Range/Units 06:41 07:03 07:03 WBC 12.1 H (3.8-10.6) k/uL RBC 3.64 L (3.80-5.40) m/uL Hgb 10.9 L (11.4-16.0) gm/dL Plt Count 110 L (150-450) k/uL Neutrophils # 10.9 H (1.3-7.7) k/uL Lymphocytes # 0.9 L (1.0-4.8) k/uL Potassium (3.5-5.1) mmol/L Chloride 124 H (98-107) mmol/L Carbon Dioxide 9 L* (22-30) mmol/L BUN 27 H (7-17) mg/dL Glucose 230 H (74-99) mg/dL POC Glucose (mg/dL) 217 H (70-110) mg/dL Calcium 7.9 L (8.4-10.2) mg/dL 01/08/24 Range/Units 11:53 WBC (3.8-10.6) k/uL RBC (3.80-5.40) m/uL Hgb (11.4-16.0) gm/dL Plt Count (150-450) k/uL Neutrophils # (1.3-7.7) k/uL Lymphocytes # (1.0-4.8) k/uL Potassium (3.5-5.1) mmol/L Chloride (98-107) mmol/L Carbon Dioxide (22-30) mmol/L BUN (7-17) mg/dL Glucose (74-99) mg/dL POC Glucose (mg/dL) 216 H (70-110) mg/dL Calcium (8.4-10.2) mg/dL Microbiology - Last 24 Hours (Table) 01/06/24 02:05 Urine Culture - Final Urine,Voided Proteus mirabilis Assessment and Plan Assessment: * Severe encephalopathy, abnormal EEG, raising concern for nonconvulsive status. * Altered mental status, likely due to metabolic encephalopathy. * Acute UTI, on Invanz * Severe dehydration * Acute kidney injury * Hypernatremia, resolved * Hypokalemia, resolved * Hypoglycemia, resolved * Seizure disorder, in remission * Reported history of Wernicke's encephalopathy, with wheelchair bound status * Presence of suprapubic catheter. * Malnutrition * Hypotension Plan: * Repeat EEG performed for 1 hour revealed disorganized background with moderate to severe slowing, assistive of generalized cerebral dysfunction as can be seen with toxic metabolic encephalopathy, or related to diffuse structural brain abnormality. Clinical correlation is recommended. Presence of very frequent high amplitude sharp-appearing waves, which at times become rhythmic at 1 Hz and sometimes become sequential, somewhat in generalized distribution. This suggest underlying cortical irritability and tendency for seizure. Clinically there were many events as mentioned above, concerning for possible seizure. 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 Clinical correlation and continuous EEG monitoring strongly recommended. * Stat ABG was checked, in which her pH is 7.38, pCO2 19, pO2 76 and saturation 95%. Ammonia is normal 9. Hepatic panel also check stat showed slight worsening on the liver functions with AST 67(63 on 01/06/2024) and ALT 150 (previously 237). * With abnormal EEG, patient needs another anticonvulsant. With her abnormal liver functions, would avoid Depakote. Patient is ALLERGIC to Keppra. We will start Dilantin cautiously. I will give Dilantin 500 mg loading dose and maintain on Dilantin 200 mg twice a day. * Check Dilantin level in the morning. * Repeat prolonged, 1 hour EEG in the morning. * Patient currently on Invanz for UTI. ID following. * Treatment of other metabolic conditions as per IM/critical care. * Recommend patient to be transferred to higher level of care for continuous EEG monitoring, which is not available at our facility. I discussed with primary care, ICU staff, nursing staff as well as patient's , and agreed for transfer to higher level of care. In the meantime patient didn't stay in the ICU. Time with Patient: Greater than 30
--- NOTE | 2024-01-09 10:36 | P.PN ---
Subjective Progress Note Date: 01/09/24 Principal diagnosis: Sepsis. Pulmonary consult dated January 06, 2024. 38-year-old female who presented from [facility] as a transfer, via EMS, for possible dehydration, urinary tract infection, and urosepsis. The patient was seen in the emergency department, by Dr. Braden Patino. He evaluated the patient, thought the patient likely had sepsis from a urinary source, and, place a central line, fluid resuscitated the patient, and placed the patient on norepinephrine. He called me about the patient, we excepted the patient into the intensive care unit, for further monitoring and management. Currently, she is on 4 L of oxygen by nasal cannula. She getting saline at 75 cc an hour. She received 1.5 L of saline in the emergency department. She is on Levophed, at 2.8 mcg/min. She continues on Zithromax and Rocephin. Will check a procalcitonin level and a cortisol level. As mentioned, she came from the [place] emergency department. White count 9.2, hemoglobin 10.9, hematocrit 34.8, platelet count 98,000. Sodium 150, potassium 3, chlorides 126, CO2 8, anion gap 16, BUN 51, creatinine 1.79. Calcium 7.1. Procalcitonin level 2.71. AST is 63. ALT is 237. N-terminal proBNP is 2410. Urine is cloudy, with moderate blood. Leukocyte esterase was large positive. Nitrite was negative. There is greater than 182 WBCs, many WBC clumps, and occasional bacteria noted. Chest x-ray shows right basilar and right midlung airspace opacities. This could be consistent with possible aspiration. Progress note dated January 07, 2024. 38-year-old female seen in consultation yesterday. Please see my note above. The patient was initially transferred from an outside hospital for urinary tract infection/urosepsis. Patient needed the ICU for further monitoring and management of her sepsis, and, required norepinephrine. Currently she is on room air. She is getting D5W at 100 cc an hour. She is also getting norepinephrine at 2 mcg/min. She is on Rocephin and azithromycin, for urinary tract infection, and questionable pneumonia, right lower lobe. White count is 9.7, hemoglobin 10.7, hematocrit 34.3, platelet count 117,000. Sodium 144, potassium 2.7, chlorides 125, carbon dioxide 10, anion gap normal, BUN 37, creatinine 1.24. Glucose is 325. Calcium 7.2. Urine is showing gram-negative bacilli, yet to be identified. Progress note dated January 08, 2024. 38-year-old female again seen today in room 263. The patient is on room air. She is getting D5W at 100 cc an hour. The patient has a 9 anion gap hyperchloremic metabolic acidosis. There are gram-negative bacilli in her urine, which appear to be ESBL bacteria. For that reason, she is on ertapenem. Current labs include a white count 12.1, hemoglobin 10.9, hematocrit 35.1, and platelet count of 110,000. Sodium 139, potassium 3.7, chlorides 124, anion gap 6, bicarbonate concentration 9, BUN 27, creatinine 0.94. Glucose is 230. Calcium is 7.9. Progress note dated January 09, 2024. 38-year-old female again seen in room 263. The patient continues on room air. She is getting saline KVO. In addition, she is on a sodium bicarbonate drip, with 2 ampoules of sodium bicarb in D5W at 125 cc an hour. Recent blood gas shows a pO2 of 76, pCO2 of 19, pH is 7.38. This blood gases consistent with a mixed acid-base disturbance, including a respiratory alkalosis, and metabolic acidosis. Also, I spoke to the neurologist yesterday, who did an EEG on this patient, and is concerned that the patient is having nonconvulsive status. For that reason, the patient will be transferred to an outside hospital, for 24-hour EEG monitoring. Current labs include a white count slightly 9, hemoglobin 9.4, hematocrit 35.2, and platelet count of 118,000. Sodium 139, potassium 3.1, chlorides 117, CO2 12, BUN 20, and creatinine 0.66. Glucose is 227. Bilirubin of 0.6. Calcium is 8. Albumin is 2.5. Objective - Vital Signs Vital signs: Vital Signs Temp 98.6 F 01/09/24 04:00 Pulse 62 01/09/24 07:00 Resp 25 H 01/09/24 07:00 BP 117/73 01/09/24 07:00 Pulse Ox 96 01/09/24 07:00 FiO2 Intake & Output 01/08/24 01/09/24 01/09/24 18:59 06:59 18:59 Intake Total 575 1700 125 Output Total 385 670 30 Balance 190 1030 95 Weight 49.6 kg Intake: IV 575 1700 125 Ceftolozane/Tazobactam 1. 100 100 5 gm In Sodium Chloride 0 .9% 100 ml @ 100 mls/hr IV Q8HR JACQUELIN Rx#:[id number] Dextrose 5% in Water 1, 100 000 ml @ 100 mls/hr IV . Q10H JACQUELIN Rx#:[id number] Dextrose 5% in Water 1, 375 1500 125 000 ml @ 125 mls/hr IV . Q8H48M JACQUELIN with Sodium Bicarb (1 Meq/ml) 100 ml Rx#:[id number] Phenytoin Sodium Inj 500 100 mg In Sodium Chloride 0.9 % 50 ml @ 100 mls/hr IVPB ONCE STA Rx#:[id number] Output: Urine 385 670 30 Other: Voiding Method Indwelling Catheter Indwelling Catheter # Voids 1 # Bowel Movements 1 - Exam No acute distress. Patient is aphasic. HEENT examination is grossly unremarkable. Mucous membranes are moist. No oral lesions. Neck supple. Full range of motion. No adenopathy thyromegaly or neck vein distention. Cardiovascular examination reveals regular rhythm rate. S1-S2 normal. No S3 or S4. No discernible murmur noted. Heart rate 62 bpm. Heart sounds are distant. Lungs reveal mostly clear breath sounds. Occasional rhonchi. No wheezes or crackles. Room air saturation is 96 %. Abdomen soft bowel sounds are heard. No masses or tenderness. Extremities are intact. No cyanosis clubbing or edema. Skin is without rash or lesion. Neurologic examination is difficult to assess as the patient does not speak. - Labs CBC & Chem 7: 01/09/24 03:52 01/09/24 03:52 Labs: Abnormal Lab Results - Last 24 Hours (Table) 01/08/24 01/08/24 01/08/24 Range/Units 07:03 11:53 15:34 WBC (3.8-10.6) k/uL Plt Count (150-450) k/uL Neutrophils # (1.3-7.7) k/uL Lymphocytes # (1.0-4.8) k/uL ABG pCO2 (35-45) mmHg ABG pO2 (83-108) mmHg ABG HCO3 (21-25) mmol/L ABG Total CO2 (19-24) mmol/L Potassium (3.5-5.1) mmol/L Chloride 122 H (98-107) mmol/L Carbon Dioxide 6 L* (22-30) mmol/L BUN 25 H (7-17) mg/dL Glucose 221 H (74-99) mg/dL POC Glucose (mg/dL) 216 H (70-110) mg/dL Calcium 8.0 L (8.4-10.2) mg/dL Delta Bilirubin 0.7 H (0.0-0.2) mg/dL AST 67 H (14-36) U/L ALT 150 H (4-34) U/L Alkaline Phosphatase 352 H (38-126) U/L Total Protein 4.6 L (6.3-8.2) g/dL Albumin 2.3 L (3.5-5.0) g/dL Vitamin B12 >3600.0 H (200.0-944.0) pg/mL 01/08/24 01/08/24 01/08/24 Range/Units 15:47 18:01 23:44 WBC (3.8-10.6) k/uL Plt Count (150-450) k/uL Neutrophils # (1.3-7.7) k/uL Lymphocytes # (1.0-4.8) k/uL ABG pCO2 19 L* (35-45) mmHg ABG pO2 76 L (83-108) mmHg ABG HCO3 11 L (21-25) mmol/L ABG Total CO2 12 L (19-24) mmol/L Potassium (3.5-5.1) mmol/L Chloride (98-107) mmol/L Carbon Dioxide (22-30) mmol/L BUN (7-17) mg/dL Glucose (74-99) mg/dL POC Glucose (mg/dL) 215 H 248 H (70-110) mg/dL Calcium (8.4-10.2) mg/dL Delta Bilirubin (0.0-0.2) mg/dL AST (14-36) U/L ALT (4-34) U/L Alkaline Phosphatase (38-126) U/L Total Protein (6.3-8.2) g/dL Albumin (3.5-5.0) g/dL Vitamin B12 (200.0-944.0) pg/mL 01/09/24 01/09/24 01/09/24 Range/Units 03:52 03:52 05:31 WBC 14.0 H (3.8-10.6) k/uL Plt Count 118 L (150-450) k/uL Neutrophils # 13.0 H (1.3-7.7) k/uL Lymphocytes # 0.8 L (1.0-4.8) k/uL ABG pCO2 (35-45) mmHg ABG pO2 (83-108) mmHg ABG HCO3 (21-25) mmol/L ABG Total CO2 (19-24) mmol/L Potassium 3.1 L (3.5-5.1) mmol/L Chloride 117 H (98-107) mmol/L Carbon Dioxide 12 L (22-30) mmol/L BUN 20 H (7-17) mg/dL Glucose 210 H (74-99) mg/dL POC Glucose (mg/dL) 227 H (70-110) mg/dL Calcium 8.0 L (8.4-10.2) mg/dL Delta Bilirubin (0.0-0.2) mg/dL AST 47 H (14-36) U/L ALT 119 H (4-34) U/L Alkaline Phosphatase 360 H (38-126) U/L Total Protein 4.7 L (6.3-8.2) g/dL Albumin 2.5 L (3.5-5.0) g/dL Vitamin B12 (200.0-944.0) pg/mL Microbiology - Last 24 Hours (Table) 01/06/24 02:05 Urine Culture - Final Urine,Voided Proteus mirabilis Assessment and Plan Assessment: Acute sepsis secondary to an ESBL gram-negative bacilli in the urine. Nonconvulsive status. Mixed acid-base disturbance, including a respiratory alkalosis, and metabolic ac idosis. Hypotension, secondary to sepsis. Possible aspiration pneumonia. History of fibromyalgia. History of gastroesophageal reflux disease. History of pneumonia. History of seizure disorder. History of Raynaud's syndrome. Prior history of methicillin-resistant Staph aureus and ESBL infection. History of anxiety. Multiple other medical problems and comorbidities. Plan: Plan dated January 06, 2024. The patient is currently on azithromycin and Rocephin. Will check a procalc itonin level and a cortisol level. The patient did receive fluid resuscitation with saline 1.5 L. The patient is on 4 L nasal cannula. She is getting saline at 75 cc an hour. Will change of fluid from saline to D5W. Additional recommendations and suggestions are forthcoming. Prognosis is guarded. Plan dated January 07, 2024. The patient continues on Rocephin. The patient is also on azithromycin. She clearly has a urinary tract infection and possible urosepsis. There also may be a pneumonia in the right lower lobe from aspiration. The patient is on room air. She is getting D5W at 100 cc an hour. The patient has norepinephrine at 2 mcg/min. Labs, x-rays, medications are reviewed. Prognosis is guarded. The patient will need to stay in the intensive care unit. Plan dated January 08, 2024. The patient continues on ertapenem. Labs, x-rays, medications are reviewed. We will continue to follow make recommendations. The patient is stable for transfer up to the general medical floor. No additional recommendations are made. Prognosis is guarded. Plan dated January 09, 2024. The patient is seen today in room 263. The patient is currently on room air. She is getting saline at KVO, and a sodium bicarbonate drip, with 2 ampoules of sodium bicarb in D5W at 125 cc an hour. Labs, x-rays, and medications are reviewed. She had an EEG done yesterday and Dr. Lindo is concerned about the possibility of nonconvulsive status. For that reason, he feels like the patient needs to be transferred to a facility, that can do 24-hour EEG monitoring. He is attempting to get the patient transferred to [facility]. We will continue to follow make recommendations. Time with Patient: Greater than 30
[2024-01-09] MEDS: PHENYTOIN SODIUM INJ 200 MG in SODIUM CHLORIDE 0.9% 36 ML IVPB SCH (11:07)
[2024-01-09] MEDS: DEXTROSE 5% IN WATER 1,000 ML with SODIUM BICARB (1 MEQ/ML) 150 ML IV SCH (11:08)
--- NOTE | 2024-01-09 11:43 | P.PN ---
Subjective patient is seen for follow-up for metabolic acidosis, currently maintained on bicarb drip and improving. No improvement in mentation. Patient is being transferred to [facility] for continuous EEG monitoring as there has been change in her EEG. Urine output at 30-50 mL an hour. Blood sugars have been elevated, 200-300. patient does not have a history of diabetes. Urine ketone was trace. And and gap at 10 currently. It was 16 2 days ago. Objective - Vital Signs Vital signs: Vital Signs Temp 97.5 F L 01/09/24 08:00 Pulse 66 01/09/24 10:00 Resp 18 01/09/24 10:00 BP 104/55 01/09/24 10:00 Pulse Ox 99 01/09/24 09:00 FiO2 Intake & Output 01/08/24 01/09/24 01/09/24 18:59 06:59 18:59 Intake Total 575 1700 125 Output Total 385 670 30 Balance 190 1030 95 Weight 49.6 kg Intake: IV 575 1700 125 Ceftolozane/Tazobactam 1. 100 100 5 gm In Sodium Chloride 0 .9% 100 ml @ 100 mls/hr IV Q8HR JACQUELIN Rx#:[id number] Dextrose 5% in Water 1, 100 000 ml @ 100 mls/hr IV . Q10H JACQUELIN Rx#:[id number] Dextrose 5% in Water 1, 375 1500 125 000 ml @ 125 mls/hr IV . Q8H48M JACQUELIN with Sodium Bicarb (1 Meq/ml) 100 ml Rx#:[id number] Phenytoin Sodium Inj 500 100 mg In Sodium Chloride 0.9 % 50 ml @ 100 mls/hr IVPB ONCE STA Rx#:[id number] Output: Urine 385 670 30 Other: Voiding Method Indwelling Catheter Indwelling Catheter # Voids 1 # Bowel Movements 1 - Exam patient opens her eyes but does not communicate. She is comfortable no acute distress. Patient is moving all 4 extremities. Examination of the heart S1 and S2 Examination of the lungs bilateral breath sounds are heard Abdomen is soft nontender. - Labs CBC & Chem 7: 01/09/24 03:52 01/09/24 03:52 Labs: Abnormal Lab Results - Last 24 Hours (Table) 01/08/24 01/08/24 01/08/24 Range/Units 07:03 11:53 15:34 WBC (3.8-10.6) k/uL Plt Count (150-450) k/uL Neutrophils # (1.3-7.7) k/uL Lymphocytes # (1.0-4.8) k/uL ABG pCO2 (35-45) mmHg ABG pO2 (83-108) mmHg ABG HCO3 (21-25) mmol/L ABG Total CO2 (19-24) mmol/L Potassium (3.5-5.1) mmol/L Chloride 122 H (98-107) mmol/L Carbon Dioxide 6 L* (22-30) mmol/L BUN 25 H (7-17) mg/dL Glucose 221 H (74-99) mg/dL POC Glucose (mg/dL) 216 H (70-110) mg/dL Calcium 8.0 L (8.4-10.2) mg/dL Delta Bilirubin 0.7 H (0.0-0.2) mg/dL AST 67 H (14-36) U/L ALT 150 H (4-34) U/L Alkaline Phosphatase 352 H (38-126) U/L Total Protein 4.6 L (6.3-8.2) g/dL Albumin 2.3 L (3.5-5.0) g/dL Vitamin B12 >3600.0 H (200.0-944.0) pg/mL 01/08/24 01/08/24 01/08/24 Range/Units 15:47 18:01 23:44 WBC (3.8-10.6) k/uL Plt Count (150-450) k/uL Neutrophils # (1.3-7.7) k/uL Lymphocytes # (1.0-4.8) k/uL ABG pCO2 19 L* (35-45) mmHg ABG pO2 76 L (83-108) mmHg ABG HCO3 11 L (21-25) mmol/L ABG Total CO2 12 L (19-24) mmol/L Potassium (3.5-5.1) mmol/L Chloride (98-107) mmol/L Carbon Dioxide (22-30) mmol/L BUN (7-17) mg/dL Glucose (74-99) mg/dL POC Glucose (mg/dL) 215 H 248 H (70-110) mg/dL Calcium (8.4-10.2) mg/dL Delta Bilirubin (0.0-0.2) mg/dL AST (14-36) U/L ALT (4-34) U/L Alkaline Phosphatase (38-126) U/L Total Protein (6.3-8.2) g/dL Albumin (3.5-5.0) g/dL Vitamin B12 (200.0-944.0) pg/mL 01/09/24 01/09/24 01/09/24 Range/Units 03:52 03:52 05:31 WBC 14.0 H (3.8-10.6) k/uL Plt Count 118 L (150-450) k/uL Neutrophils # 13.0 H (1.3-7.7) k/uL Lymphocytes # 0.8 L (1.0-4.8) k/uL ABG pCO2 (35-45) mmHg ABG pO2 (83-108) mmHg ABG HCO3 (21-25) mmol/L ABG Total CO2 (19-24) mmol/L Potassium 3.1 L (3.5-5.1) mmol/L Chloride 117 H (98-107) mmol/L Carbon Dioxide 12 L (22-30) mmol/L BUN 20 H (7-17) mg/dL Glucose 210 H (74-99) mg/dL POC Glucose (mg/dL) 227 H (70-110) mg/dL Calcium 8.0 L (8.4-10.2) mg/dL Delta Bilirubin (0.0-0.2) mg/dL AST 47 H (14-36) U/L ALT 119 H (4-34) U/L Alkaline Phosphatase 360 H (38-126) U/L Total Protein 4.7 L (6.3-8.2) g/dL Albumin 2.5 L (3.5-5.0) g/dL Vitamin B12 (200.0-944.0) pg/mL Microbiology - Last 24 Hours (Table) 01/06/24 02:05 Urine Culture - Final Urine,Voided Proteus mirabilis Assessment and Plan Assessment: 1. Severe metabolic acidosis, non-gap associated with acute kidney injury, rule out DKA as blood sugars have been elevated as well. Anion gap is currently not elevated but was mildly elevated at 16 2 days ago. Urine drug screen done at [facility] was positive for opiates. Topamax is also associated with metabolic acidosis, mostly non-gap. Patient is currently not receiving Topamax. 2. Acute kidney injury ATN associated with hypotension and sepsis, improving 3. Neurogenic bladder requiring suprapubic catheter and history of repeated urinary infections, tentatively scheduled for cystectomy and ileal loop urostomy as outpatient. 4. Seizure disorderbeing followed by neurology. There have been changes in EKG and patient is being transferred for continuous EEG monitoring to [facility]. 5. Encephalopathy 6. Proteus mirabilis UTI with history of previous MRSA and ESBL infections 7. Possible aspiration pneumonia 8. Hypotension, most likely related to underlying infection and sepsis. It is unclear if patient has h/o adrenal insufficiency. I do see fludrocortisone on her med list but no hydrocortisone. we can try to obtain serum cortisol level from labs drawn on initial admission. 9. Hypokalemia associated with decreased intake and also possibly related to RTA from Topamax Plan: start IV bicarb, increase to 150 mEq of sodium bicarb in D5W. Recommend discontinuation of Topamax as it causes RTA which can cause severe metabolic acidosis and hypokalemia. Replace potassium Check random urine potassium and check urine anion gap Repeat labs in a.m. Check serum acetone, it however may not be accurate now. Blood sugar remains elevated around 248 to 230. Consider insulin drip. Check serum osmolality
[2024-01-09 11:59] LABS: Glucose,Whole Blood 155 mg/dL (70-110)
[2024-01-09] MEDS: LORazepam 2 MG/ML INJ IV STA (13:32)
--- NOTE | 2024-01-09 14:01 | P.PN ---
Subjective Progress Note Date: 01/09/24 38-year-old female with past medical history significant for seizure disorder, history of fibromyalgia, GERD, pneumonia, Raynaud's, Mnire's disease, history of ESBL, MRSA who was transferred from [facility] via EMS for altered mental status, sepsis/UTI, and possible dehydration. In the ED patient was hypotensive, required IV fluids, was persistently hypotensive had a central line placed and required Levophed. Patient was later on transferred to ICU for further evaluation and management. Patient is ANO x 0. Opening eyes to verbal stimuli, resisting eye opening and withdraws to touch. Patient currently on 4 L oxygen by nasal cannula, on IV fluids as unable to take p.o. intake due to al tered mental status. Remains on Levophed. Patient is currently on Rocephin and azithromycin for concern of pneumonia and UTI. Patient home medication list shows patient takes fludrocortisone, currently on hydrocortisone. On initial presentation patient's white count was 9.2, hemoglobin 10.9, platelet 98,000. Patient has elevated sodium 150, potassium is 3, CO2 8, anion gap 16, BUN 50 and creatinine 1.79. Procalcitonin level 2.71. AST 63 ALT is 237. Urine was cloudy with moderate blood. Leukocyte esterase was positive. Many WBCs and occasional bacteria noted in the urine. Chest x-ray showed right basilar and right midlung airspace opacities. Patient noted to have crackles and gurgling, concern for aspiration. 01/06. Patient seen and examined. Blood work done this morning showed WBC 9.7, hemoglobin 10.7, sodium 144, potassium 2.7, BUN 37, creatinine 1.24 glucose 300. Patient opens eyes, at baseline she only answers with yes or no current nursing staff 01/07. Patient seen and examined. Urine cultures growing gram-negative bacilli. EEG doneShowed background slowing suggestive of generalized cerebral dysfunction seen in toxic metabolic encephalopathy. Patient is opening eyes, but not following any commands 01/08. Patient seen and examined. Patient has been accepted at [facility], currently waiting on bed availability and insurance authorization. Neurologist recommended 24-hour EEG monitoring which is not available at our facility. REVIEW OF SYSTEMS: Cannot be obtained as patient is lethargic PHYSICAL EXAMINATION: GENERAL: The patient is lethargic HEENT: Pupils are round and equally reacting to light. EOMI. No scleral icterus. No conjunctival pallor. Normocephalic, atraumatic. No pharyngeal erythema. No thyromegaly. CARDIOVASCULAR: S1 and S2 present. No murmurs, rubs, or gallops. PULMONARY: Chest is clear to auscultation, no wheezing or crackles. ABDOMEN: Soft, nontender, nondistended, normoactive bowel sounds. No palpable organomegaly. MUSCULOSKELETAL: No joint swelling or deformity. EXTREMITIES: No cyanosis, clubbing, or pedal edema. NEUROLOGICAL: Gross neurological examination did not reveal any focal deficits. SKIN: No rashes. Assessment and plan Septic shock requiring vasopressors: UTI: Aspiration pneumonia: History of MRSA and ESBL: Thrombocytopenia: Monitor vital sign Monitor CBC Monitor CMP Follow-up on blood cultures Follow-up on urine cultures Continue zerbaxa Continue Solu-Cortef, midodrine ID following Urology following Critical care following Hypernatremia: YARELIS: Secondary to dehydration Continue IV fluids Seizure disorder: History of seizure disorder on Topamax Allergic to Keppra EEG ordered and reviewed by neurology Currently on Vimpat, Dilantin and Topamax Neurology eval the patient, recommended 24-hour EEG monitoring, currently in the process of being transferred to [facility] History of Mnire's disease: History of Raynaud's DVT prophylaxis. SCD, thrombocytopenia. Labs and medication were reviewed.. Continue same treatment. Continue with symptomatic treatment. Resume home medication. Monitor labs and vitals. DVT and GI prophylaxis. Further recommendations as per clinical course of the patient Dictation was produced using [employer] dictation software. please excuse any grammatical, word or spelling errors. Objective - Vital Signs Vital signs: Vital Signs Temp 97.5 F L 01/09/24 08:00 Pulse 72 01/09/24 12:00 Resp 23 01/09/24 12:00 BP 95/68 01/09/24 12:00 Pulse Ox 97 01/09/24 12:00 FiO2 Intake & Output 01/08/24 01/09/24 01/09/24 18:59 06:59 18:59 Intake Total 575 1700 875 Output Total 385 670 330 Balance 190 1030 545 Weight 49.6 kg 49.6 kg Intake: IV 575 1700 875 Ceftolozane/Tazobactam 1. 100 100 100 5 gm In Sodium Chloride 0 .9% 100 ml @ 100 mls/hr IV Q8HR JACQUELIN Rx#:[id number] Dextrose 5% in Water 1, 100 000 ml @ 100 mls/hr IV . Q10H JACQUELIN Rx#:[id number] Dextrose 5% in Water 1, 375 1500 625 000 ml @ 125 mls/hr IV . Q8H48M JACQUELIN with Sodium Bicarb (1 Meq/ml) 100 ml Rx#:[id number] Phenytoin Sodium Inj 500 100 50 mg In Sodium Chloride 0.9 % 50 ml @ 100 mls/hr IVPB ONCE STA Rx#:[id number] Potassium Chloride 20 meq 100 In Water For Injection 1 100ml.bag @ 50 mls/hr IVPB Q2H JACQUELIN Rx#: [id number] Output: Urine 385 670 330 Other: Voiding Method Indwelling Catheter Indwelling Catheter # Voids 1 # Bowel Movements 1 - Labs CBC & Chem 7: 01/09/24 03:52 01/09/24 03:52 Labs: Abnormal Lab Results - Last 24 Hours (Table) 01/08/24 01/08/24 01/08/24 Range/Units 07:03 15:34 15:47 WBC (3.8-10.6) k/uL Plt Count (150-450) k/uL Neutrophils # (1.3-7.7) k/uL Lymphocytes # (1.0-4.8) k/uL ABG pCO2 19 L* (35-45) mmHg ABG pO2 76 L (83-108) mmHg ABG HCO3 11 L (21-25) mmol/L ABG Total CO2 12 L (19-24) mmol/L Potassium (3.5-5.1) mmol/L Chloride 122 H (98-107) mmol/L Carbon Dioxide 6 L* (22-30) mmol/L BUN 25 H (7-17) mg/dL Glucose 221 H (74-99) mg/dL POC Glucose (mg/dL) (70-110) mg/dL Calcium 8.0 L (8.4-10.2) mg/dL Delta Bilirubin 0.7 H (0.0-0.2) mg/dL AST 67 H (14-36) U/L ALT 150 H (4-34) U/L Alkaline Phosphatase 352 H (38-126) U/L Total Protein 4.6 L (6.3-8.2) g/dL Albumin 2.3 L (3.5-5.0) g/dL Vitamin B12 >3600.0 H (200.0-944.0) pg/mL 01/08/24 01/08/24 01/09/24 Range/Units 18:01 23:44 03:52 WBC 14.0 H (3.8-10.6) k/uL Plt Count 118 L (150-450) k/uL Neutrophils # 13.0 H (1.3-7.7) k/uL Lymphocytes # 0.8 L (1.0-4.8) k/uL ABG pCO2 (35-45) mmHg ABG pO2 (83-108) mmHg ABG HCO3 (21-25) mmol/L ABG Total CO2 (19-24) mmol/L Potassium (3.5-5.1) mmol/L Chloride (98-107) mmol/L Carbon Dioxide (22-30) mmol/L BUN (7-17) mg/dL Glucose (74-99) mg/dL POC Glucose (mg/dL) 215 H 248 H (70-110) mg/dL Calcium (8.4-10.2) mg/dL Delta Bilirubin (0.0-0.2) mg/dL AST (14-36) U/L ALT (4-34) U/L Alkaline Phosphatase (38-126) U/L Total Protein (6.3-8.2) g/dL Albumin (3.5-5.0) g/dL Vitamin B12 (200.0-944.0) pg/mL 01/09/24 01/09/24 01/09/24 Range/Units 03:52 05:31 11:58 WBC (3.8-10.6) k/uL Plt Count (150-450) k/uL Neutrophils # (1.3-7.7) k/uL Lymphocytes # (1.0-4.8) k/uL ABG pCO2 (35-45) mmHg ABG pO2 (83-108) mmHg ABG HCO3 (21-25) mmol/L ABG Total CO2 (19-24) mmol/L Potassium 3.1 L (3.5-5.1) mmol/L Chloride 117 H (98-107) mmol/L Carbon Dioxide 12 L (22-30) mmol/L BUN 20 H (7-17) mg/dL Glucose 210 H (74-99) mg/dL POC Glucose (mg/dL) 227 H 155 H (70-110) mg/dL Calcium 8.0 L (8.4-10.2) mg/dL Delta Bilirubin (0.0-0.2) mg/dL AST 47 H (14-36) U/L ALT 119 H (4-34) U/L Alkaline Phosphatase 360 H (38-126) U/L Total Protein 4.7 L (6.3-8.2) g/dL Albumin 2.5 L (3.5-5.0) g/dL Vitamin B12 (200.0-944.0) pg/mL Microbiology - Last 24 Hours (Table) 01/06/24 02:05 Urine Culture - Final Urine,Voided Proteus mirabilis
[2024-01-09 18:49] LABS: Glucose,Whole Blood 134 mg/dL (70-110)
--- NOTE | 2024-01-09 20:42 | EEG ---
ELECTROENCEPHALOGRAM REPORT PREAMBLE: This is a 38-year-old female with severe encephalopathy, and possible nonconvulsive status. This is a followup EEG. CURRENT MEDICATIONS: 1. Vimpat. 2. Dilantin. TECHNICAL SUMMARY: This is a 21-channel digital EEG recorded with video component, utilizing 10/20 international system with referential and bipolar montages. This is a prolonged 1-hour study with recording start time 1:32 p.m. on 01/09/2024 and recording end time is 2:37 p.m. on 01/09/2024. The recording starts with the presence of diffuse, high amplitude 2 to 3 hertz delta slowing seen in bihemispheric region, with significant myogenic activity. Once the myogenic activity subsided, there was presence of some periodic sharp waves seen predominantly in bifrontal region, which at times have some triphasic like quality as well. Ativan 2 mg IV was given and afterwards diffuse slowing in moderate amplitude mixed theta and delta was seen. Some periods of generalized suppression lasting for 1 second were seen periodically. The EEG is quite active, changes pattern during this study, just like was seen in the study yesterday. Some sleep was also seen with presence of sleep spindles. No electrographic seizure was however recorded. IMPRESSION: This is an abnormal EEG because of, 1. Background slowing of moderate to severe degree, suggestive of generalized cerebral dysfunction as can be seen with toxic metabolic encephalopathy or related to diffuse structural brain abnormality. Clinical correlation is recommended. 2. The presence of some sharp waves seen in generalized distribution is seen intermittently, and sometimes periodically during the study. After the patient received Ativan 2 mg IV, the background slowed down, and some periods of suppression and some sleep spindles were seen with reduction in the amount of epileptiform activity. 3. No electrographic seizure was recorded. 4. Recommend continuous EEG monitoring for further evaluation. MMODL / IJN: [id number] /
[2024-01-09] MEDS: PHENYTOIN SODIUM INJ 500 MG in SODIUM CHLORIDE 0.9% 50 ML IVPB STA (21:18)
[2024-01-09 23:27] LABS: Glucose,Whole Blood 155 mg/dL (70-110)
[2024-01-10 03:43] LABS: Methylmalonic Acid 0.21 umol/L (<0.40)
[2024-01-10 05:29] LABS: Glucose,Whole Blood 139 mg/dL (70-110)
[2024-01-10 06:43] LABS: Basophils % (A) 0 %; Eosinophils % (A) 0 %; HCT 26.7 % (34.0-46.0); Lymphocytes # (A) 0.9 k/uL (1.0-4.8); Lymphocytes % (A) 10 %; MCH 30.5 pg (25.0-35.0); MCHC 34.3 g/dL (31.0-37.0); MCV 88.9 fL (80.0-100.0); Mean Platelet Volume 8.9; Monocytes # (A) 0.3 k/uL (0-1.0); Monocytes % (A) 4 %; Neutrophils # (A) 7.8 k/uL (1.3-7.7); Neutrophils % (A) 86 %; Platelet Count 122 k/uL (150-450); RBC 3.01 m/uL (3.80-5.40); RDW 14.5 % (11.5-15.5); WBC 9.1 k/uL (3.8-10.6)
[2024-01-10 07:01] LABS: HGB 9.2 gm/dL (11.4-16.0)
[2024-01-10 07:16] LABS: ALT 97 U/L (4-34); AST 57 U/L (14-36); African American GFR (CKD) >90 (>60 ml/min/1.73 sqM); Albumin 2.2 g/dL (3.5-5.0); Alkaline Phosphatase 229 U/L (38-126); Anion Gap 2 mmol/L; Blood Urea Nitrogen 12 mg/dL (7-17); Calcium 7.1 mg/dL (8.4-10.2); Carbon Dioxide 29 mmol/L (22-30); Chloride 110 mmol/L (98-107); Glucose 133 mg/dL (74-99); Non-African American GFR(CKD) >90 (>60 ml/min/1.73 sqM); Sodium 141 mmol/L (137-145); Total Bilirubin 0.7 mg/dL (0.2-1.3); Total Protein 4.1 g/dL (6.3-8.2)
[2024-01-10 07:35] LABS: Potassium 2.2 mmol/L (3.5-5.1)
[2024-01-10] MEDS: POTASSIUM CHLORIDE 20 MEQ in WATER FOR INJECTION 1 100ML.BAG IVPB SCH (08:05)
--- NOTE | 2024-01-10 08:18 | P.PN ---
Subjective Progress Note Date: 01/09/24 01/09/2024: Patient was seen for a follow-up. Patient is undergoing prolonged EEG. Patient is now improved at all. Continues to be severely encephalopathic. 01/08/2024: Patient was seen for follow-up. Patient continues to be severely encephalopathic. Patient very somnolent, lethargic. On calling her name, she slightly opens her eyes, and the gaze was up words. On giving some painful stimulus with nailbed pressure, patient started having some twitching of her eyelids and the chin, concerning for a seizure. Patient does not follow directions. Yesterday per discussion with patient's informed: I spoke to patient's on the phone, who mentions that they have been for last 17 years. He informed me that patient had gastric bypass surgery in 2013, after which she started having problem with walking. She started with a cane, then walker. In October 2019 she was hospitalized and after that she could not walk, and has been wheelchair-bound since then. Patient has been to [facility] and was diagnosed with nutritional deficiency, Wernicke's encephalopathy. She did have MRI performed at [facility] and workup has been performed. There was no diagnosis of MS. Patient's hospital records from [facility] mentioned about "neurofibromatosis", and patient's is not aware any confirmed diagnosis of NF. No previous history of tumors or brain tumors. Patient otherwise talks normally. She does have seizure disorder since 2007. She currently follows up with Dr. Higgins. Patient used to be on Vimpat and Trileptal, but they have been discontinued and she is just on Topamax 50 mg 3 times daily. She gets seizures once in a while. Last seizure was about a week ago which was a "mini seizure", in which she zoned out for couple minutes and when she came back, was feeling dizzy. Patient's admits that she has history of alcoholism when she was in her 20s. She has been sober since last 11 years. Objective - Vital Signs Vital signs: Vital Signs Temp 97.5 F L 01/09/24 08:00 Pulse 72 01/09/24 12:00 Resp 23 01/09/24 12:00 BP 95/68 01/09/24 12:00 Pulse Ox 97 01/09/24 12:00 FiO2 Intake & Output 01/08/24 01/09/24 01/09/24 18:59 06:59 18:59 Intake Total 575 1700 875 Output Total 385 670 330 Balance 190 1030 545 Weight 49.6 kg 49.6 kg Intake: IV 575 1700 875 Ceftolozane/Tazobactam 1. 100 100 100 5 gm In Sodium Chloride 0 .9% 100 ml @ 100 mls/hr IV Q8HR JACQUELIN Rx#:[id number] Dextrose 5% in Water 1, 100 000 ml @ 100 mls/hr IV . Q10H JACQUELIN Rx#:[id number] Dextrose 5% in Water 1, 375 1500 625 000 ml @ 125 mls/hr IV . Q8H48M JACQUELIN with Sodium Bicarb (1 Meq/ml) 100 ml Rx#:[id number] Phenytoin Sodium Inj 500 100 50 mg In Sodium Chloride 0.9 % 50 ml @ 100 mls/hr IVPB ONCE STA Rx#:[id number] Potassium Chloride 20 meq 100 In Water For Injection 1 100ml.bag @ 50 mls/hr IVPB Q2H JACQUELIN Rx#: [id number] Output: Urine 385 670 330 Other: Voiding Method Indwelling Catheter Indwelling Catheter # Voids 1 # Bowel Movements 1 - Exam Patient severely encephalopathic, very lethargic, laying in the bed. Opens her eyes to calling her name, but does not track. Face is symmetric. No obvious seizure-like activity noted at this time. On painful stimulus, patient has facial grimacing bilaterally, and tries to move her arm. She does not wake up. - Labs CBC & Chem 7: 01/10/24 06:08 01/10/24 06:08 Labs: Abnormal Lab Results - Last 24 Hours (Table) 01/08/24 01/08/24 01/08/24 Range/Units 07:03 15:34 15:47 WBC (3.8-10.6) k/uL Plt Count (150-450) k/uL Neutrophils # (1.3-7.7) k/uL Lymphocytes # (1.0-4.8) k/uL ABG pCO2 19 L* (35-45) mmHg ABG pO2 76 L (83-108) mmHg ABG HCO3 11 L (21-25) mmol/L ABG Total CO2 12 L (19-24) mmol/L Potassium (3.5-5.1) mmol/L Chloride 122 H (98-107) mmol/L Carbon Dioxide 6 L* (22-30) mmol/L BUN 25 H (7-17) mg/dL Glucose 221 H (74-99) mg/dL POC Glucose (mg/dL) (70-110) mg/dL Calcium 8.0 L (8.4-10.2) mg/dL Delta Bilirubin 0.7 H (0.0-0.2) mg/dL AST 67 H (14-36) U/L ALT 150 H (4-34) U/L Alkaline Phosphatase 352 H (38-126) U/L Total Protein 4.6 L (6.3-8.2) g/dL Albumin 2.3 L (3.5-5.0) g/dL Vitamin B12 >3600.0 H (200.0-944.0) pg/mL 01/08/24 01/08/24 01/09/24 Range/Units 18:01 23:44 03:52 WBC 14.0 H (3.8-10.6) k/uL Plt Count 118 L (150-450) k/uL Neutrophils # 13.0 H (1.3-7.7) k/uL Lymphocytes # 0.8 L (1.0-4.8) k/uL ABG pCO2 (35-45) mmHg ABG pO2 (83-108) mmHg ABG HCO3 (21-25) mmol/L ABG Total CO2 (19-24) mmol/L Potassium (3.5-5.1) mmol/L Chloride (98-107) mmol/L Carbon Dioxide (22-30) mmol/L BUN (7-17) mg/dL Glucose (74-99) mg/dL POC Glucose (mg/dL) 215 H 248 H (70-110) mg/dL Calcium (8.4-10.2) mg/dL Delta Bilirubin (0.0-0.2) mg/dL AST (14-36) U/L ALT (4-34) U/L Alkaline Phosphatase (38-126) U/L Total Protein (6.3-8.2) g/dL Albumin (3.5-5.0) g/dL Vitamin B12 (200.0-944.0) pg/mL 01/09/24 01/09/24 01/09/24 Range/Units 03:52 05:31 11:58 WBC (3.8-10.6) k/uL Plt Count (150-450) k/uL Neutrophils # (1.3-7.7) k/uL Lymphocytes # (1.0-4.8) k/uL ABG pCO2 (35-45) mmHg ABG pO2 (83-108) mmHg ABG HCO3 (21-25) mmol/L ABG Total CO2 (19-24) mmol/L Potassium 3.1 L (3.5-5.1) mmol/L Chloride 117 H (98-107) mmol/L Carbon Dioxide 12 L (22-30) mmol/L BUN 20 H (7-17) mg/dL Glucose 210 H (74-99) mg/dL POC Glucose (mg/dL) 227 H 155 H (70-110) mg/dL Calcium 8.0 L (8.4-10.2) mg/dL Delta Bilirubin (0.0-0.2) mg/dL AST 47 H (14-36) U/L ALT 119 H (4-34) U/L Alkaline Phosphatase 360 H (38-126) U/L Total Protein 4.7 L (6.3-8.2) g/dL Albumin 2.5 L (3.5-5.0) g/dL Vitamin B12 (200.0-944.0) pg/mL Microbiology - Last 24 Hours (Table) 01/06/24 02:05 Urine Culture - Final Urine,Voided Proteus mirabilis Assessment and Plan Assessment: * Severe encephalopathy, abnormal EEG, raising concern for nonconvulsive status. * Altered mental status, likely due to metabolic encephalopathy, and due to above. * Acute UTI, switched to Zerbaxa * Transaminitis, improving * Severe dehydration, resolved * Acute kidney injury, resolved * Hypernatremia, resolved * Hypokalemia, recurring * Seizure disorder, in remission * Reported history of Wernicke's encephalopathy, with wheelchair bound status * Presence of suprapubic catheter. * Malnutrition * Hypotension Plan: * Patient had a repeat prolonged EEG performed today 01/09/2024. It was again abnormal with background slowing, consistent with moderate to severe encephalopathy. Presence of some sharp waves seen in generalized distribu tion, seen intermittently and sometimes periodically during the study. After the patient received Ativan 2 mg IV, the background slowed down and some periods of suppression and some sleep spindles were seen with resolution of epileptiform activity. No electrographic seizure was recorded. Recommend continuous EEG monitoring for further evaluation. * Patient probably will benefit from Versed drip and continuous EEG monitoring. Await insurance authorization. Patient has been accepted at [facility]. * Give extra bolus of Dilantin 100 mg 1 dose. Continue to maintain on Dilantin 200 mg twice a day. * Recheck Dilantin level in the morning. * Prolonged EEG for 1 hour 01/08/2024 revealed disorganized background with moderate to severe slowing, assistive of generalized cerebral dysfunction as can be seen with toxic metabolic encephalopathy, or related to diffuse structural brain abnormality. Clinical correlation is recommended. Presence of very frequent high amplitude sharp-appearing waves, which at times become rhythmic at 1 Hz and sometimes become sequential, somewhat in generalized distribution. This suggest underlying cortical irritability and tendency for seizure. Clinically there were many events as mentioned above, concerning for possible seizure. 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 Clinical correlation and continuous EEG monitoring strongly recommended. * Stat ABG was checked, in which her pH is 7.38, pCO2 19, pO2 76 and saturation 95%. Ammonia is normal 9. Hepatic panel also check stat showed slight worsening on the liver functions with AST 67(63 on 01/06/2024) and ALT 150 (previously 237). * With abnormal EEG, patient needs another anticonvulsant. With her abnormal liver functions, would avoid Depakote. Patient is ALLERGIC to Keppra. We will start Dilantin cautiously. * Patient started on Zerbaxa by ID for UTI. * Treatment of other metabolic conditions as per IM/critical care. * Recommend patient to be transferred to higher level of care for continuous EEG monitoring, which is not available at our facility. In the meantime patient will stay in the ICU.
[2024-01-10] MEDS: LACTATED RINGERS 1,000 ML IV SCH (10:13)
[2024-01-10 11:39] LABS: Glucose,Whole Blood 95 mg/dL (70-110)
--- NOTE | 2024-01-10 11:43 | P.PN ---
Subjective patient is seen for follow-up for metabolic acidosis, status post bicarb drip. Mentation appears slightly improved today. patient however still does not communicate much. Serum CO2 increased to 29 and the bicarb drip has been discontinued. Potassium was low at 2.2 and is being replaced. No diarrhea noted. Objective - Vital Signs Vital signs: Vital Signs Temp 98.1 F 01/10/24 08:00 Pulse 84 01/10/24 11:00 Resp 20 01/10/24 11:00 BP 115/72 01/10/24 11:00 Pulse Ox 94 L 01/10/24 11:00 FiO2 Intake & Output 01/09/24 01/10/24 01/10/24 18:59 06:59 18:59 Intake Total 1850 1500 861 Output Total 845 855 295 Balance 1005 645 566 Weight 49.6 kg 48 kg Intake: IV 1850 1500 225 Ceftolozane/Tazobactam 1. 200 100 5 gm In Sodium Chloride 0 .9% 100 ml @ 100 mls/hr IV Q8HR JACQUELIN Rx#:[id number] Dextrose 5% in Water 1, 625 000 ml @ 125 mls/hr IV . Q8H48M JACQUELIN with Sodium Bicarb (1 Meq/ml) 100 ml Rx#:[id number] Dextrose 5% in Water 1, 875 1500 125 000 ml @ 125 mls/hr IV . Q9H12M JACQUELIN with Sodium Bicarb (1 Meq/ml) 150 ml Rx#:[id number] Phenytoin Sodium Inj 500 50 mg In Sodium Chloride 0.9 % 50 ml @ 100 mls/hr IVPB ONCE STA Rx#:[id number] Potassium Chloride 20 meq 100 In Water For Injection 1 100ml.bag @ 50 mls/hr IVPB Q2H JACQUELIN Rx#: [id number] Intake, IV Titration 386 Amount Lactated Ringers 1,000 ml 150 @ 75 mls/hr IV .[id number] JACQUELIN Rx#:[id number] Phenytoin Sodium Inj 200 36 mg In Sodium Chloride 0.9 % 36 ml @ 80 mls/hr IVPB Q12HR JACQUELIN Rx#:[id number] Potassium Chloride 20 meq 200 In Water For Injection 1 100ml.bag @ 50 mls/hr IVPB ONCE STA Rx#: [id number] Lipid 250 Dextrose 5% in Water 1, 250 000 ml @ 125 mls/hr IV . Q9H12M JACQUELIN with Sodium Bicarb (1 Meq/ml) 150 ml Rx#:[id number] Output: Urine 845 855 295 Other: Voiding Method Indwelling Catheter Indwelling Catheter Indwelling Catheter # Bowel Movements 1 1 1 - Exam patient opens her eyes but does not communicate. She is comfortable no acute distress. Patient is moving all 4 extremities. significant wasting of the lower legs noted. Examination of the heart S1 and S2 Examination of the lungs bilateral breath sounds are heard Abdomen is soft nontender. - Labs CBC & Chem 7: 01/10/24 06:08 01/10/24 06:08 Labs: Abnormal Lab Results - Last 24 Hours (Table) 01/09/24 01/09/24 01/09/24 Range/Units 11:58 18:46 23:26 RBC (3.80-5.40) m/uL Hgb (11.4-16.0) gm/dL Hct (34.0-46.0) % Plt Count (150-450) k/uL Neutrophils # (1.3-7.7) k/uL Lymphocytes # (1.0-4.8) k/uL Potassium (3.5-5.1) mmol/L Chloride (98-107) mmol/L Creatinine (0.52-1.04) mg/dL Glucose (74-99) mg/dL POC Glucose (mg/dL) 155 H 134 H 155 H (70-110) mg/dL Calcium (8.4-10.2) mg/dL Magnesium (1.6-2.3) mg/dL AST (14-36) U/L ALT (4-34) U/L Alkaline Phosphatase (38-126) U/L Total Protein (6.3-8.2) g/dL Albumin (3.5-5.0) g/dL 01/10/24 01/10/24 01/10/24 Range/Units 05:28 06:08 06:08 RBC 3.01 L (3.80-5.40) m/uL Hgb 9.2 L D (11.4-16.0) gm/dL Hct 26.7 L (34.0-46.0) % Plt Count 122 L (150-450) k/uL Neutrophils # 7.8 H (1.3-7.7) k/uL Lymphocytes # 0.9 L (1.0-4.8) k/uL Potassium 2.2 L* (3.5-5.1) mmol/L Chloride 110 H (98-107) mmol/L Creatinine 0.47 L (0.52-1.04) mg/dL Glucose 133 H (74-99) mg/dL POC Glucose (mg/dL) 139 H (70-110) mg/dL Calcium 7.1 L (8.4-10.2) mg/dL Magnesium (1.6-2.3) mg/dL AST 57 H (14-36) U/L ALT 97 H (4-34) U/L Alkaline Phosphatase 229 H (38-126) U/L Total Protein 4.1 L (6.3-8.2) g/dL Albumin 2.2 L (3.5-5.0) g/dL 01/10/24 Range/Units 06:08 RBC (3.80-5.40) m/uL Hgb (11.4-16.0) gm/dL Hct (34.0-46.0) % Plt Count (150-450) k/uL Neutrophils # (1.3-7.7) k/uL Lymphocytes # (1.0-4.8) k/uL Potassium (3.5-5.1) mmol/L Chloride (98-107) mmol/L Creatinine (0.52-1.04) mg/dL Glucose (74-99) mg/dL POC Glucose (mg/dL) (70-110) mg/dL Calcium (8.4-10.2) mg/dL Magnesium 1.4 L (1.6-2.3) mg/dL AST (14-36) U/L ALT (4-34) U/L Alkaline Phosphatase (38-126) U/L Total Protein (6.3-8.2) g/dL Albumin (3.5-5.0) g/dL Assessment and Plan Assessment: 1. Severe metabolic acidosis, non-gap most likely related to Topamax causing RTA. Also a component of acute kidney injury contributing to the acidosis. Improved post IV bicarb. Topamax is on hold. 2. Acute kidney injury ATN associated with hypotension and sepsis, improving 3. Neurogenic bladder requiring suprapubic catheter and history of repeated urinary infections, tentatively scheduled for cystectomy and ileal loop urostomy as outpatient. 4. Seizure disorder being followed by neurology. There have been changes in EEG and patient is being transferred for continuous EEG monitoring to [facility]. 5. Encephalopathy 6. Proteus mirabilis UTI with history of previous MRSA and ESBL infections 7. Possible aspiration pneumonia 8. Hypotension, most likely related to underlying infection and sepsis. It is unclear if patient has h/o adrenal insufficiency. I do see fludrocortisone on her med list but no hydrocortisone. 9. Hypokalemia associated with decreased intake and also possibly related to RTA from Topamax Plan: agree with discontinuation of IV bicarb. Replace potassium aggressively Replace magnesium Continue to hold Topamax. Continue antibiotics
--- NOTE | 2024-01-10 12:08 | P.DS ---
Providers Date of admission: 01/05/24 18:27 Expected date of discharge: 01/10/24 Attending physician: Earnest Velazquez MD Consults: 01/05/24 22:22 Consult Physician Stat Consulting Provider: Kyler Morris Consult Reason/Comments: critical care Do you want consulting provider notified?: Already Contacted 01/06/24 13:22 Consult Physician Routine Consulting Provider: Alphonse Barry Consult Reason/Comments: Supraoubic cath leaking. Do you want consulting provider notified?: Yes 01/06/24 13:49 Consult Physician Routine Consulting Provider: Robi Morris Consult Reason/Comments: Seizure disorder Do you want consulting provider notified?: Yes 01/06/24 13:50 Consult Physician Routine Consulting Provider: Chika Xavier Consult Reason/Comments: Septic shock, UTI, PNA Do you want consulting provider notified?: Yes 01/08/24 09:38 Consult Physician Routine Consulting Provider: Homa Gold Consult Reason/Comments: Persistent metabolic acidosis Do you want consulting provider notified?: Yes Primary care physician: Kyler Whalen [facility] Course: Discharge diagnoses; Septic shock requiring vasopressors: UTI: Aspiration pneumonia: History of MRSA and ESBL Acute metabolic encephalopathy Thrombocytopenia: Monitor vital sign Monitor CBC Monitor CMP Follow-up on blood cultures Follow-up on urine cultures Continue zerbaxa Continue Solu-Cortef, midodrine ID following Urology following Critical care following 01/09. Being transferred to [facility] Hypernatremia: YARELIS Hypokalemia Secondary to dehydration Continue IV fluids 01/09. Being transferred to [facility] Seizure disorder: History of seizure disorder on Topamax Allergic to Keppra EEG ordered and reviewed by neurology Currently on Vimpat, Dilantin and Topamax Neurology eval the patient, recommended 24-hour EEG monitoring, currently in the process of being transferred to [facility] 01/09. Being transferred to [facility] History of Mnire's disease: History of Raynaud's Hospital course; 38-year-old female with past medical history significant for seizure disorder, history of fibromyalgia, GERD, pneumonia, Raynaud's, Mnire's disease, history of ESBL, MRSA who was transferred from [facility] via EMS for altered mental status, sepsis/UTI, and possible dehydration. In the ED patient was hypotensive, required IV fluids, was persistently hypotensive had a central line placed and required Levophed. Patient was later on transferred to ICU for further evaluation and management. Patient is ANO x 0. Opening eyes to verbal stimuli, resisting eye opening and withdraws to touch. Patient currently on 4 L oxygen by nasal cannula, on IV fluids as unable to take p.o. intake due to altered mental status. Remains on Levophed. Patient is currently on Rocephin and azithromycin for concern of pneumonia and UTI. Patient home medication list shows patient takes fludrocortisone, currently on hydrocortisone. On initial presentation patient's white count was 9.2, hemoglobin 10.9, platelet 98,000. Patient has elevated sodium 150, potassium is 3, CO2 8, anion gap 16, BUN 50 and creatinine 1.79. Procalcitonin level 2.71. AST 63 ALT is 237. Urine was cloudy with moderate blood. Leukocyte esterase was positive. Many WBCs and occasional bacteria noted in the urine. Chest x-ray showed right basilar and right midlung airspace opacities. Patient noted to have crackles and gurgling, concern for aspiration. 01/06. Patient seen and examined. Blood work done this morning showed WBC 9.7, hemoglobin 10.7, sodium 144, potassium 2.7, BUN 37, creatinine 1.24 glucose 300. Patient opens eyes, at baseline she only answers with yes or no current nursing staff 01/07. Patient seen and examined. Urine cultures growing gram-negative bacilli. EEG doneShowed background slowing suggestive of generalized cerebral dysfunction seen in toxic metabolic encephalopathy. Patient is opening eyes, but not following any commands 01/08. Patient seen and examined. Patient has been accepted at [facility], currently waiting on bed availability and insurance authorization. Neurologist recommended 24-hour EEG monitoring which is not available at our facility. 01/09. Patient seen and examined. Being transferred to [facility] PHYSICAL EXAMINATION: GENERAL: The patient is lethargic HEENT: Pupils are round and equally reacting to light. CARDIOVASCULAR: S1 and S2 present. No murmurs, rubs, or gallops. PULMONARY: Chest is clear to auscultation, no wheezing or crackles. ABDOMEN: Soft, nontender, nondistended, normoactive bowel sounds. No palpable organomegaly. MUSCULOSKELETAL: No joint swelling or deformity. EXTREMITIES: No cyanosis, clubbing, or pedal edema. NEUROLOGICAL: Moving all extremities. SKIN: No rashes. Dictation was produced using [employer] dictation software. please excuse any grammatical, word or spelling errors. Patient Condition at Discharge: Fair Plan - Discharge Summary Discharge Rx Participant: Yes New Discharge Prescriptions: Continue Gabapentin [Neurontin] 1,200 mg PO TID QUEtiapine FUMARATE 50 mg PO HS Zolpidem Tartrate [Ambien Cr] 12.5 mg PO HS Fludrocortisone [Florinef] 0.1 mg PO BID Pyridoxine [Vitamin B-6] 50 mg PO DAILY Oxybutynin Chloride [oxyBUTYnin chloride ER] 10 mg PO DAILY Midodrine [ProAmatine] 5 mg PO TID oxyCODONE-APAP 5-325MG [Percocet 5-325 mg] 1 tab PO QID Famotidine 40 mg PO HS Topiramate [Topamax] 50 mg PO TID Thiamine [Vitamin B-1] 100 mg PO DAILY Venlafaxine HCl [Effexor XR] 150 mg PO DAILY Lubiprostone [Amitiza] 24 mcg PO BID Discharge Medication List Gabapentin [Neurontin] 1,200 mg PO TID 12/25/17 [History] QUEtiapine FUMARATE 50 mg PO HS 11/25/19 [History] Zolpidem Tartrate [Ambien Cr] 12.5 mg PO HS 11/25/19 [History] Fludrocortisone [Florinef] 0.1 mg PO BID 07/19/21 [History] Famotidine 40 mg PO HS 01/05/24 [History] Lubiprostone [Amitiza] 24 mcg PO BID 01/05/24 [History] Midodrine [ProAmatine] 5 mg PO TID 01/05/24 [History] Oxybutynin Chloride [oxyBUTYnin chloride ER] 10 mg PO DAILY 01/05/24 [History] Pyridoxine [Vitamin B-6] 50 mg PO DAILY 01/05/24 [History] Thiamine [Vitamin B-1] 100 mg PO DAILY 01/05/24 [History] Topiramate [Topamax] 50 mg PO TID 01/05/24 [History] Venlafaxine HCl [Effexor XR] 150 mg PO DAILY 01/05/24 [History] oxyCODONE-APAP 5-325MG [Percocet 5-325 mg] 1 tab PO QID 01/05/24 [History] Follow up Appointment(s)/Referral(s): Kyler Whalen MD [Primary Care Provider] - 1-2 days Activity/Diet/Wound Care/Special Instructions: Patient accepted at [facility] Dr. Means accepting physician Discharge Disposition: OTHER INSTITUTION NOT DEFINED
[2024-01-10] MEDS: MAGNESIUM SULFATE-D5W PMX 1 GM in DEXTROSE/WATER 1 100ML.BAG IVPB SCH (12:16)
--- NOTE | 2024-01-10 12:17 | P.PN ---
Subjective Progress Note Date: 01/10/24 Principal diagnosis: Sepsis. Pulmonary consult dated January 06, 2024. 38-year-old female who presented from [facility] as a transfer, via EMS, for possible dehydration, urinary tract infection, and urosepsis. The patient was seen in the emergency department, by Dr. Braden Patino. He evaluated the patient, thought the patient likely had sepsis from a urinary source, and, place a central line, fluid resuscitated the patient, and placed the patient on norepinephrine. He called me about the patient, we excepted the patient into the intensive care unit, for further monitoring and management. Currently, she is on 4 L of oxygen by nasal cannula. She getting saline at 75 cc an hour. She received 1.5 L of saline in the emergency department. She is on Levophed, at 2.8 mcg/min. She continues on Zithromax and Rocephin. Will check a procalcitonin level and a cortisol level. As mentioned, she came from the [place] emergency department. White count 9.2, hemoglobin 10.9, hematocrit 34.8, platelet count 98,000. Sodium 150, potassium 3, chlorides 126, CO2 8, anion gap 16, BUN 51, creatinine 1.79. Calcium 7.1. Procalcitonin level 2.71. AST is 63. ALT is 237. N-terminal proBNP is 2410. Urine is cloudy, with moderate blood. Leukocyte esterase was large positive. Nitrite was negative. There is greater than 182 WBCs, many WBC clumps, and occasional bacteria noted. Chest x-ray shows right basilar and right midlung airspace opacities. This could be consistent with possible aspiration. Progress note dated January 07, 2024. 38-year-old female seen in consultation yesterday. Please see my note above. The patient was initially transferred from an outside hospital for urinary tract infection/urosepsis. Patient needed the ICU for further monitoring and management of her sepsis, and, required norepinephrine. Currently she is on room air. She is getting D5W at 100 cc an hour. She is also getting norepinephrine at 2 mcg/min. She is on Rocephin and azithromycin, for urinary tract infection, and questionable pneumonia, right lower lobe. White count is 9.7, hemoglobin 10.7, hematocrit 34.3, platelet count 117,000. Sodium 144, potassium 2.7, chlorides 125, carbon dioxide 10, anion gap normal, BUN 37, creatinine 1.24. Glucose is 325. Calcium 7.2. Urine is showing gram-negative bacilli, yet to be identified. Progress note dated January 08, 2024. 38-year-old female again seen today in room 263. The patient is on room air. She is getting D5W at 100 cc an hour. The patient has a 9 anion gap hyperchloremic metabolic acidosis. There are gram-negative bacilli in her urine, which appear to be ESBL bacteria. For that reason, she is on ertapenem. Current labs include a white count 12.1, hemoglobin 10.9, hematocrit 35.1, and platelet count of 110,000. Sodium 139, potassium 3.7, chlorides 124, anion gap 6, bicarbonate concentration 9, BUN 27, creatinine 0.94. Glucose is 230. Calcium is 7.9. Progress note dated January 09, 2024. 38-year-old female again seen in room 263. The patient continues on room air. She is getting saline KVO. In addition, she is on a sodium bicarbonate drip, with 2 ampoules of sodium bicarb in D5W at 125 cc an hour. Recent blood gas shows a pO2 of 76, pCO2 of 19, pH is 7.38. This blood gases consistent with a mixed acid-base disturbance, including a respiratory alkalosis, and metabolic acidosis. Also, I spoke to the neurologist yesterday, who did an EEG on this patient, and is concerned that the patient is having nonconvulsive status. For that reason, the patient will be transferred to an outside hospital, for 24-hour EEG monitoring. Current labs include a white count slightly 9, hemoglobin 9.4, hematocrit 35.2, and platelet count of 118,000. Sodium 139, potassium 3.1, chlorides 117, CO2 12, BUN 20, and creatinine 0.66. Glucose is 227. Bilirubin of 0.6. Calcium is 8. Albumin is 2.5. Progress note dated January 08, 2024. 38-year-old female seen again in room 263. The patient is thought to have nonconvulsive status, and is awaiting transfer to a different facility, where they can do 24-hour EEG monitoring. She continues on room air. She is getting D5W with 3 ampoules of sodium bicarb at 125 cc an hour. Her serum bicarbonate concentration is up to 29. That IV will be discontinued in favor of lactated Ringer's at 75 cc an hour. The patient's urine showed evidence of ESBL Proteus, and the patient is on Zerbaxa. Current labs include a white count 9.1, hemoglobin 9.2, hematocrit 26.7, and a platelet count of 122,000. Sodium 141, potassium 2.2, chloride 110, CO2 29, anion gap 2, BUN 12, creatinine 0.47. Glucose is 95. Calcium 7.1. Albumin is 2.2. Urine is positive for Proteus mirabilis. Objective - Vital Signs Vital signs: Vital Signs Temp 98.1 F 01/10/24 08:00 Pulse 84 01/10/24 11:00 Resp 20 01/10/24 11:00 BP 115/72 01/10/24 11:00 Pulse Ox 94 L 01/10/24 11:00 FiO2 Intake & Output 01/09/24 01/10/24 01/10/24 18:59 06:59 18:59 Intake Total 1850 1500 861 Output Total 845 855 295 Balance 1005 645 566 Weight 49.6 kg 48 kg Intake: IV 1850 1500 225 Ceftolozane/Tazobactam 1. 200 100 5 gm In Sodium Chloride 0 .9% 100 ml @ 100 mls/hr IV Q8HR JACQUELIN Rx#:[id number] Dextrose 5% in Water 1, 625 000 ml @ 125 mls/hr IV . Q8H48M JACQUELIN with Sodium Bicarb (1 Meq/ml) 100 ml Rx#:[id number] Dextrose 5% in Water 1, 875 1500 125 000 ml @ 125 mls/hr IV . Q9H12M JACQUELIN with Sodium Bicarb (1 Meq/ml) 150 ml Rx#:[id number] Phenytoin Sodium Inj 500 50 mg In Sodium Chloride 0.9 % 50 ml @ 100 mls/hr IVPB ONCE STA Rx#:[id number] Potassium Chloride 20 meq 100 In Water For Injection 1 100ml.bag @ 50 mls/hr IVPB Q2H JACQUELIN Rx#: [id number] Intake, IV Titration 386 Amount Lactated Ringers 1,000 ml 150 @ 75 mls/hr IV .[id number] JACQUELIN Rx#:[id number] Phenytoin Sodium Inj 200 36 mg In Sodium Chloride 0.9 % 36 ml @ 80 mls/hr IVPB Q12HR JACQUELIN Rx#:[id number] Potassium Chloride 20 meq 200 In Water For Injection 1 100ml.bag @ 50 mls/hr IVPB ONCE STA Rx#: [id number] Lipid 250 Dextrose 5% in Water 1, 250 000 ml @ 125 mls/hr IV . Q9H12M JACQUELIN with Sodium Bicarb (1 Meq/ml) 150 ml Rx#:[id number] Output: Urine 845 855 295 Other: Voiding Method Indwelling Catheter Indwelling Catheter Indwelling Catheter # Bowel Movements 1 1 1 - Exam No acute distress. Patient is aphasic. Currently on room air. HEENT examination is grossly unremarkable. Mucous membranes are moist. No oral lesions. Neck supple. Full range of motion. No adenopathy thyromegaly or neck vein distention. Cardiovascular examination reveals regular rhythm rate. S1-S2 normal. No S3 or S4. No discernible murmur noted. Heart rate 84 bpm. Heart sounds are distant. Lungs reveal mostly clear breath sounds. Occasional rhonchi. No wheezes or crackles. Room air saturation is 95 %. Abdomen soft bowel sounds are heard. No masses or tenderness. Extremities are intact. No cyanosis clubbing or edema. Skin is without rash or lesion. Neurologic examination is difficult to assess as the patient does not speak. - Labs CBC & Chem 7: 01/10/24 06:08 01/10/24 06:08 Labs: Abnormal Lab Results - Last 24 Hours (Table) 01/09/24 01/09/24 01/10/24 Range/Units 18:46 23:26 05:28 RBC (3.80-5.40) m/uL Hgb (11.4-16.0) gm/dL Hct (34.0-46.0) % Plt Count (150-450) k/uL Neutrophils # (1.3-7.7) k/uL Lymphocytes # (1.0-4.8) k/uL Potassium (3.5-5.1) mmol/L Chloride (98-107) mmol/L Creatinine (0.52-1.04) mg/dL Glucose (74-99) mg/dL POC Glucose (mg/dL) 134 H 155 H 139 H (70-110) mg/dL Calcium (8.4-10.2) mg/dL Magnesium (1.6-2.3) mg/dL AST (14-36) U/L ALT (4-34) U/L Alkaline Phosphatase (38-126) U/L Total Protein (6.3-8.2) g/dL Albumin (3.5-5.0) g/dL 01/10/24 01/10/24 01/10/24 Range/Units 06:08 06:08 06:08 RBC 3.01 L (3.80-5.40) m/uL Hgb 9.2 L D (11.4-16.0) gm/dL Hct 26.7 L (34.0-46.0) % Plt Count 122 L (150-450) k/uL Neutrophils # 7.8 H (1.3-7.7) k/uL Lymphocytes # 0.9 L (1.0-4.8) k/uL Potassium 2.2 L* (3.5-5.1) mmol/L Chloride 110 H (98-107) mmol/L Creatinine 0.47 L (0.52-1.04) mg/dL Glucose 133 H (74-99) mg/dL POC Glucose (mg/dL) (70-110) mg/dL Calcium 7.1 L (8.4-10.2) mg/dL Magnesium 1.4 L (1.6-2.3) mg/dL AST 57 H (14-36) U/L ALT 97 H (4-34) U/L Alkaline Phosphatase 229 H (38-126) U/L Total Protein 4.1 L (6.3-8.2) g/dL Albumin 2.2 L (3.5-5.0) g/dL Assessment and Plan Assessment: Acute sepsis secondary to an ESBL Proteus mirabilis in the urine. Nonconvulsive status. Mixed acid-base disturbance, including a respiratory alkalosis, and metabolic acidosis. Hypotension, secondary to sepsis. Possible aspiration pneumonia. History of fibromyalgia. History of gastroesophageal reflux disease. History of pneumonia. History of seizure disorder. History of Raynaud's syndrome. Prior history of methicillin-resistant Staph aureus and ESBL infection. History of anxiety. Multiple other medical problems and comorbidities. Plan: Plan dated January 06, 2024. The patient is currently on azithromycin and Rocephin. Will check a procalcitonin level and a cortisol level. The patient did receive fluid resuscitation with saline 1.5 L. The patient is on 4 L nasal cannula. She is getting saline at 75 cc an hour. Will change of fluid from saline to D5W. Additional recommendations and suggestions are forthcoming. Prognosis is guarded. Plan dated January 07, 2024. The patient continues on Rocephin. The patient is also on azithromycin. She clearly has a urinary tract infection and possible urosepsis. There also may be a pneumonia in the right lower lobe from aspiration. The patient is on room air. She is getting D5W at 100 cc an hour. The patient has norepinephrine at 2 mcg/min. Labs, x-rays, medications are reviewed. Prognosis is guarded. The patient will need to stay in the intensive care unit. Plan dated January 08, 2024. The patient continues on ertapenem. Labs, x-rays, medications are reviewed. We will continue to follow make recommendations. The patient is stable for transfer up to the general medical floor. No additional recommendations are made. Prognosis is guarded. Plan dated January 09, 2024. The patient is seen today in room 263. The patient is currently on room air. She is getting saline at KVO, and a sodium bicarbonate drip, with 2 ampoules of sodium bicarb in D5W at 125 cc an hour. Labs, x-rays, and medications are reviewed. She had an EEG done yesterday and Dr. Lindo is concerned about the possibility of nonconvulsive status. For that reason, he feels like the patient needs to be transferred to a facility, that can do 24-hour EEG monitoring. He is attempting to get the patient transferred to [facility]. We will continue to follow make recommendations. Plan dated January 10, 2024. The patient is again seen in room 263. She is on room air. She continues on her sodium bicarbonate drip which can be discontinued, as the patient's bicarbonate concentration is up to 29. The patient is currently on Zerbaxa for the infection. The infection is a ESBL Proteus mirabilis, in the urine. Labs, x-rays, and medications are reviewed. The patient will hopefully be discharged to the outside facility in the near future. She does need 24-hour EEG monitoring, for concerns of nonconvulsive status. We will continue to follow make recommendations. Prognosis is guarded. Time with Patient: Greater than 30
[2024-01-10 12:34] VITALS: TEMP 98.5
[2024-01-10 13:01] VITALS: BMI 19.3
--- NOTE | 2024-01-10 13:13 | CDI ---
Documentation Clarification Form Date: 01/10/2024 12:45:53 PM From: Freda Bell RN, CCDS Phone: [phone] Admit Date: 01/05/2024 06:27:00 PM Patient Name: Kamala Perla Visit Number: [id number] Discharge Date: ATTENTION: The Clinical Documentation Specialists (CDI) and [facility] Coding Staff appreciate your assistance in clarifying documentation. Please respond to the clarification below the line at the bottom and electronically sign. The CDI & [facility] Coding staff will review the response and follow-up if needed. Please note: Queries are made part of the Legal Health Record. If you have any questions, please contact the author of this message via ITS. Dr. Matthew Jolly UTI is documented in the H/P and subsequent progress notes and patient has history of neurogenic bladder requiring suprapubic catheter and history repeated urinary infection. Additional clarification regarding the etiology of the UTI is requested. History/Risk Factors: Fibromyalgia, GERD/Reflux, Pneumonia, Seizure Disorder, Urine MRSA; Urine ESBL Clinical Indicators: 38-year-old female present as transfer for altered mentation, hypotensive and was treated with IV fluids and was started on pressors. She is treated for pneumonia and UTI. 01/05 Urinalysis: Leukocyte Esterase, WBC>182 Urine culture: Proteus mirabilis Lab results: WBC 44, Neutrophils 91, NA+ 147, K+ 30 CL 125, CO2 8, BUN 54, CR 1.71, GFR 38 Treatment: Zerbaxa 1.5 GM IVPB Q 8 HRS 01/07-01/09 .9 NS 1,000 IV Bolus Invanz 1 GM IVPB Daily 01/06-01/07 Rocephin 1 GM IVPB Q 12 01/04-01/06 Azithromycin 500 MG IVPB Daily 01/04-01/06 Please clarify the etiology of the UTI, if known: [ x] Suprapubic Catheter [ ] UTI not related to Suprapubic catheter [ ] Other condition, please specify [ ] Unable to determine (Template Last Revised: August 2020) MTDD
[2024-01-10] MEDS: POTASSIUM CHLORIDE 20 MEQ in WATER FOR INJECTION 1 100ML.BAG IVPB ONE (14:13)
[2024-01-10 14:14] VITALS: BP 96/63; PULSE 78; RESP 24
--- NOTE | 2024-01-10 15:08 | P.PN ---
Subjective Progress Note Date: 01/09/24 Principal diagnosis: Reason for follow-up visit ESBL Proteus UTI Patient is a 38-year-old female with a past medical history significant for seizure disorder pneumonia reflux fibromyalgia, patient was brought into the hospital 3 days ago as a transfer from [facility] with the patient was brought in concern for dehydration and urinary tract infection subsequent to being admitted to ICU On today's evaluation that is 01/09/2024, Patient is afebrile patient is c urrently on room air patient did have open eyes and staring but did not answer any question no vomiting diarrhea or any other changes reported by nursing staff. Patient white count is up to 14.0 creatinine 0.66 Objective - Vital Signs Vital signs: Vital Signs Temp 97.5 F L 01/09/24 08:00 Pulse 66 01/09/24 10:00 Resp 18 01/09/24 10:00 BP 104/55 01/09/24 10:00 Pulse Ox 99 01/09/24 09:00 FiO2 Intake & Output 01/08/24 01/09/24 01/09/24 18:59 06:59 18:59 Intake Total 575 1700 125 Output Total 385 670 30 Balance 190 1030 95 Weight 49.6 kg Intake: IV 575 1700 125 Ceftolozane/Tazobactam 1. 100 100 5 gm In Sodium Chloride 0 .9% 100 ml @ 100 mls/hr IV Q8HR JACQUELIN Rx#:[id number] Dextrose 5% in Water 1, 100 000 ml @ 100 mls/hr IV . Q10H JACQUELIN Rx#:[id number] Dextrose 5% in Water 1, 375 1500 125 000 ml @ 125 mls/hr IV . Q8H48M JACQUELIN with Sodium Bicarb (1 Meq/ml) 100 ml Rx#:[id number] Phenytoin Sodium Inj 500 100 mg In Sodium Chloride 0.9 % 50 ml @ 100 mls/hr IVPB ONCE STA Rx#:[id number] Output: Urine 385 670 30 Other: Voiding Method Indwelling Catheter Indwelling Catheter # Voids 1 # Bowel Movements 1 - Exam GENERAL DESCRIPTION: Middle-aged female lying in bed in no distress RESPIRATORY SYSTEM: Unlabored breathing , decreased breath sounds at bases HEART: S1 S2 regular rate and rhythm , ABDOMEN: Soft , no tenderness EXTREMITIES: No edema feet - Labs CBC & Chem 7: 01/10/24 06:08 01/10/24 06:08 Labs: Abnormal Lab Results - Last 24 Hours (Table) 01/08/24 01/08/24 01/08/24 Range/Units 07:03 11:53 15:34 WBC (3.8-10.6) k/uL Plt Count (150-450) k/uL Neutrophils # (1.3-7.7) k/uL Lymphocytes # (1.0-4.8) k/uL ABG pCO2 (35-45) mmHg ABG pO2 (83-108) mmHg ABG HCO3 (21-25) mmol/L ABG Total CO2 (19-24) mmol/L Potassium (3.5-5.1) mmol/L Chloride 122 H (98-107) mmol/L Carbon Dioxide 6 L* (22-30) mmol/L BUN 25 H (7-17) mg/dL Glucose 221 H (74-99) mg/dL POC Glucose (mg/dL) 216 H (70-110) mg/dL Calcium 8.0 L (8.4-10.2) mg/dL Delta Bilirubin 0.7 H (0.0-0.2) mg/dL AST 67 H (14-36) U/L ALT 150 H (4-34) U/L Alkaline Phosphatase 352 H (38-126) U/L Total Protein 4.6 L (6.3-8.2) g/dL Albumin 2.3 L (3.5-5.0) g/dL Vitamin B12 >3600.0 H (200.0-944.0) pg/mL 01/08/24 01/08/24 01/08/24 Range/Units 15:47 18:01 23:44 WBC (3.8-10.6) k/uL Plt Count (150-450) k/uL Neutrophils # (1.3-7.7) k/uL Lymphocytes # (1.0-4.8) k/uL ABG pCO2 19 L* (35-45) mmHg ABG pO2 76 L (83-108) mmHg ABG HCO3 11 L (21-25) mmol/L ABG Total CO2 12 L (19-24) mmol/L Potassium (3.5-5.1) mmol/L Chloride (98-107) mmol/L Carbon Dioxide (22-30) mmol/L BUN (7-17) mg/dL Glucose (74-99) mg/dL POC Glucose (mg/dL) 215 H 248 H (70-110) mg/dL Calcium (8.4-10.2) mg/dL Delta Bilirubin (0.0-0.2) mg/dL AST (14-36) U/L ALT (4-34) U/L Alkaline Phosphatase (38-126) U/L Total Protein (6.3-8.2) g/dL Albumin (3.5-5.0) g/dL Vitamin B12 (200.0-944.0) pg/mL 01/09/24 01/09/24 01/09/24 Range/Units 03:52 03:52 05:31 WBC 14.0 H (3.8-10.6) k/uL Plt Count 118 L (150-450) k/uL Neutrophils # 13.0 H (1.3-7.7) k/uL Lymphocytes # 0.8 L (1.0-4.8) k/uL ABG pCO2 (35-45) mmHg ABG pO2 (83-108) mmHg ABG HCO3 (21-25) mmol/L ABG Total CO2 (19-24) mmol/L Potassium 3.1 L (3.5-5.1) mmol/L Chloride 117 H (98-107) mmol/L Carbon Dioxide 12 L (22-30) mmol/L BUN 20 H (7-17) mg/dL Glucose 210 H (74-99) mg/dL POC Glucose (mg/dL) 227 H (70-110) mg/dL Calcium 8.0 L (8.4-10.2) mg/dL Delta Bilirubin (0.0-0.2) mg/dL AST 47 H (14-36) U/L ALT 119 H (4-34) U/L Alkaline Phosphatase 360 H (38-126) U/L Total Protein 4.7 L (6.3-8.2) g/dL Albumin 2.5 L (3.5-5.0) g/dL Vitamin B12 (200.0-944.0) pg/mL Microbiology - Last 24 Hours (Table) 01/06/24 02:05 Urine Culture - Final Urine,Voided Proteus mirabilis Assessment and Plan (1) Penicillin allergy Current Visit: Yes Status: Acute Code(s): Z88.0 - ALLERGY STATUS TO PENICILLIN SNOMED Code(s): 93502528 (2) UTI (urinary tract infection) Current Visit: Yes Status: Acute Code(s): N39.0 - URINARY TRACT INFECTION, SITE NOT SPECIFIED SNOMED Code(s): 69610648 (3) Sepsis Current Visit: No Status: Acute Code(s): A41.9 - SEPSIS, UNSPECIFIED ORGANISM SNOMED Code(s): 69298362 (4) Infection due to extended spectrum beta lactamase (ESBL) producing Proteus mirabilis Current Visit: Yes Status: Acute Code(s): A49.8 - OTHER BACTERIAL INFECTIONS OF UNSPECIFIED SITE; Z16.12 - EXTENDED SPECTRUM BETA LACTAMASE (ESBL) RESISTANCE SNOMED Code(s): 4579898309 Plan: 1patient presented to hospital with sepsis in this patient who did have hypotension tachycardia significantly positive UA most likely symptomatic ureteric infection catheter associated with the previous culture positive for ESBL Proteus 2-with concern for the patient having seizures patient antibiotic has been switched over to Zerbaxa continue monitor clinical course closely Dictation was produced using [employer] dictation software. please excuse any grammatical, word or spelling errors. Time with Patient: Less than 30
--- NOTE | 2024-01-10 15:09 | P.PN ---
Subjective Progress Note Date: 01/10/24 Principal diagnosis: Reason for follow-up visit ESBL Proteus UTI Patient is a 38-year-old female with a past medical history significant for seizure disorder pneumonia reflux fibromyalgia, patient was brought into the hospital 3 days ago as a transfer from [facility] with the patient was brought in concern for dehydration and urinary tract infection subsequent to being admitted to ICU On today's evaluation that is 01/10/2024, patient has been afebrile, patient is breathing comfortably and is currently on room air, patient is awake with open eyes but staring I did not answer any question no vomiting diarrhea or any other changes reported by the nursing staff. Patient white count normalized to 9.1 creatinine 0.47 Objective - Vital Signs Vital signs: Vital Signs Temp 98.5 F 01/10/24 12:00 Pulse 78 01/10/24 14:00 Resp 24 01/10/24 14:00 BP 96/63 01/10/24 14:00 Pulse Ox 96 01/10/24 14:00 FiO2 Intake & Output 01/09/24 01/10/24 01/10/24 18:59 06:59 18:59 Intake Total 1850 1500 1411 Output Total 845 855 565 Balance 1005 645 846 Weight 49.6 kg 48 kg 48 kg Intake: IV 1850 1500 225 Ceftolozane/Tazobactam 1. 200 100 5 gm In Sodium Chloride 0 .9% 100 ml @ 100 mls/hr IV Q8HR JACQUELIN Rx#:[id number] Dextrose 5% in Water 1, 625 000 ml @ 125 mls/hr IV . Q8H48M JACQUELIN with Sodium Bicarb (1 Meq/ml) 100 ml Rx#:[id number] Dextrose 5% in Water 1, 875 1500 125 000 ml @ 125 mls/hr IV . Q9H12M JACQUELIN with Sodium Bicarb (1 Meq/ml) 150 ml Rx#:[id number] Phenytoin Sodium Inj 500 50 mg In Sodium Chloride 0.9 % 50 ml @ 100 mls/hr IVPB ONCE STA Rx#:[id number] Potassium Chloride 20 meq 100 In Water For Injection 1 100ml.bag @ 50 mls/hr IVPB Q2H JACQUELIN Rx#: [id number] Intake, IV Titration 936 Amount Lactated Ringers 1,000 ml 300 @ 75 mls/hr IV .[id number] JACQUELIN Rx#:[id number] Magnesium Sulfate-D5w Pmx 200 1 gm In Dextrose/Water 1 100ml.bag @ 100 mls/hr IVPB Q1H JACQUELIN Rx#: [id number] Phenytoin Sodium Inj 200 36 mg In Sodium Chloride 0.9 % 36 ml @ 80 mls/hr IVPB Q12HR JACQUELIN Rx#:[id number] Potassium Chloride 20 meq 400 In Water For Injection 1 100ml.bag @ 50 mls/hr IVPB ONCE ONE Rx#: [id number] Lipid 250 Dextrose 5% in Water 1, 250 000 ml @ 125 mls/hr IV . Q9H12M JACQUELIN with Sodium Bicarb (1 Meq/ml) 150 ml Rx#:[id number] Output: Urine 845 855 565 Other: Voiding Method Indwelling Catheter Indwelling Catheter Indwelling Catheter # Bowel Movements 1 1 2 - Exam GENERAL DESCRIPTION: Middle-aged female lying in bed in no distress RESPIRATORY SYSTEM: Unlabored breathing , decreased breath sounds at bases HEART: S1 S2 regular rate and rhythm , ABDOMEN: Soft , no tenderness EXTREMITIES: No edema feet - Labs CBC & Chem 7: 01/10/24 06:08 01/10/24 06:08 Labs: Abnormal Lab Results - Last 24 Hours (Table) 01/09/24 01/09/24 01/10/24 Range/Units 18:46 23:26 05:28 RBC (3.80-5.40) m/uL Hgb (11.4-16.0) gm/dL Hct (34.0-46.0) % Plt Count (150-450) k/uL Neutrophils # (1.3-7.7) k/uL Lymphocytes # (1.0-4.8) k/uL Potassium (3.5-5.1) mmol/L Chloride (98-107) mmol/L Creatinine (0.52-1.04) mg/dL Glucose (74-99) mg/dL POC Glucose (mg/dL) 134 H 155 H 139 H (70-110) mg/dL Calcium (8.4-10.2) mg/dL Magnesium (1.6-2.3) mg/dL AST (14-36) U/L ALT (4-34) U/L Alkaline Phosphatase (38-126) U/L Total Protein (6.3-8.2) g/dL Albumin (3.5-5.0) g/dL 01/10/24 01/10/24 01/10/24 Range/Units 06:08 06:08 06:08 RBC 3.01 L (3.80-5.40) m/uL Hgb 9.2 L D (11.4-16.0) gm/dL Hct 26.7 L (34.0-46.0) % Plt Count 122 L (150-450) k/uL Neutrophils # 7.8 H (1.3-7.7) k/uL Lymphocytes # 0.9 L (1.0-4.8) k/uL Potassium 2.2 L* (3.5-5.1) mmol/L Chloride 110 H (98-107) mmol/L Creatinine 0.47 L (0.52-1.04) mg/dL Glucose 133 H (74-99) mg/dL POC Glucose (mg/dL) (70-110) mg/dL Calcium 7.1 L (8.4-10.2) mg/dL Magnesium 1.4 L (1.6-2.3) mg/dL AST 57 H (14-36) U/L ALT 97 H (4-34) U/L Alkaline Phosphatase 229 H (38-126) U/L Total Protein 4.1 L (6.3-8.2) g/dL Albumin 2.2 L (3.5-5.0) g/dL Assessment and Plan (1) Penicillin allergy Current Visit: Yes Status: Acute Code(s): Z88.0 - ALLERGY STATUS TO PENICILLIN SNOMED Code(s): 40511543 (2) UTI (urinary tract infection) Current Visit: Yes Status: Acute Code(s): N39.0 - URINARY TRACT INFECTION, SITE NOT SPECIFIED SNOMED Code(s): 16865942 (3) Sepsis Current Visit: No Status: Acute Code(s): A41.9 - SEPSIS, UNSPECIFIED ORGANISM SNOMED Code(s): 58375791 (4) Infection due to extended spectrum beta lactamase (ESBL) producing Proteus mirabilis Current Visit: Yes Status: Acute Code(s): A49.8 - OTHER BACTERIAL INFECTIONS OF UNSPECIFIED SITE; Z16.12 - EXTENDED SPECTRUM BETA LACTAMASE (ESBL) RESISTANCE SNOMED Code(s): 6054238693 Plan: 1patient presented to hospital with sepsis in this patient who did have hypotension tachycardia significantly positive UA most likely symptomatic ureteric infection catheter associated with the previous culture positive for ESBL Proteus 2-with concern for the patient having seizures patient antibiotic has been switched over to Zerbaxa currently waiting for transfer to tertiary care scheduled for this afternoon as reported by the nursing staff Dictation was produced using [employer] dictation software. please excuse any grammatical, word or spelling errors. Time with Patient: Less than 30
--- NOTE | 2024-01-12 11:29 | P.PN ---
Subjective Progress Note Date: 01/10/24 01/10/2024: Patient was seen for a follow-up. Patient tonically not improved at all. Continues to be severely encephalopathic. Patient responds slightly to calling her name, but opens her eyes and appears very encephalopathic. Does not track or follow directions. No obvious seizure-like activity noted. 01/09/2024: Patient was seen for a follow-up. Patient is undergoing prolonged EEG. Patient is now improved at all. Continues to be severely encephalopathic. 01/08/2024: Patient was seen for follow-up. Patient continues to be severely encephalopathic. Patient very somnolent, lethargic. On calling her name, she slightly opens her eyes, and the gaze was up words. On giving some painful stimulus with nailbed pressure, patient started having some twitching of her eyelids and the chin, concerning for a seizure. Patient does not follow directions. Yesterday per discussion with patient's informed: I spoke to patient's on the phone, who mentions that they have been for last 17 years. He informed me that patient had gastric bypass surgery in 2013, after which she started having problem with walking. She started with a cane, then walker. In October 2019 she was hospitalized and after that she could not walk, and has been wheelchair-bound since then. Patient has been to [facility] and was diagnosed with nutritional deficiency, Wernicke's encephalopathy. She did have MRI performed at [facility] and workup has been performed. There was no diagnosis of MS. Patient's hospital records from [facility] mentioned about "neurofibromatosis", and patient's is not aware any confirmed diagnosis of NF. No previous history of tumors or brain tumors. Patient otherwise talks normally. She does have seizure disorder since 2007. She currently follows up with Dr. Higgins. Patient used to be on Vimpat and Trileptal, but they have been discontinued and she is just on Topamax 50 mg 3 times daily. She gets seizures once in a while. Last seizure was about a week ago which was a "mini seizure", in which she zoned out for couple minutes and when she came back, was feeling dizzy. Patient's admits that she has history of alcoholism when she was in her 20s. She has been sober since last 11 years. Objective - Vital Signs Vital signs: Vital Signs Temp 98.5 F 01/10/24 12:00 Pulse 78 01/10/24 14:00 Resp 24 01/10/24 14:00 BP 96/63 01/10/24 14:00 Pulse Ox 96 01/10/24 14:00 FiO2 Intake & Output 01/09/24 01/10/24 01/10/24 18:59 06:59 18:59 Intake Total 1850 1500 1411 Output Total 845 855 565 Balance 1005 645 846 Weight 49.6 kg 48 kg 48 kg Intake: IV 1850 1500 225 Ceftolozane/Tazobactam 1. 200 100 5 gm In Sodium Chloride 0 .9% 100 ml @ 100 mls/hr IV Q8HR JACQUELIN Rx#:[id number] Dextrose 5% in Water 1, 625 000 ml @ 125 mls/hr IV . Q8H48M JACQUELIN with Sodium Bicarb (1 Meq/ml) 100 ml Rx#:[id number] Dextrose 5% in Water 1, 875 1500 125 000 ml @ 125 mls/hr IV . Q9H12M JACQUELIN with Sodium Bicarb (1 Meq/ml) 150 ml Rx#:[id number] Phenytoin Sodium Inj 500 50 mg In Sodium Chloride 0.9 % 50 ml @ 100 mls/hr IVPB ONCE STA Rx#:[id number] Potassium Chloride 20 meq 100 In Water For Injection 1 100ml.bag @ 50 mls/hr IVPB Q2H JACQUELIN Rx#: [id number] Intake, IV Titration 936 Amount Lactated Ringers 1,000 ml 300 @ 75 mls/hr IV .[id number] JACQUELIN Rx#:[id number] Magnesium Sulfate-D5w Pmx 200 1 gm In Dextrose/Water 1 100ml.bag @ 100 mls/hr IVPB Q1H JACQUELIN Rx#: [id number] Phenytoin Sodium Inj 200 36 mg In Sodium Chloride 0.9 % 36 ml @ 80 mls/hr IVPB Q12HR JACQUELIN Rx#:[id number] Potassium Chloride 20 meq 400 In Water For Injection 1 100ml.bag @ 50 mls/hr IVPB ONCE ONE Rx#: [id number] Lipid 250 Dextrose 5% in Water 1, 250 000 ml @ 125 mls/hr IV . Q9H12M JACQUELIN with Sodium Bicarb (1 Meq/ml) 150 ml Rx#:[id number] Output: Urine 845 855 565 Other: Voiding Method Indwelling Catheter Indwelling Catheter Indwelling Catheter # Bowel Movements 1 1 2 - Exam Patient severely encephalopathic, very lethargic, laying in the bed. Opens her eyes to calling her name, but does not track. Face is symmetric. No obvious seizure-like activity noted at this time. On painful stimulus, patient has facial grimacing bilaterally, and tries to move her arm. She does not wake up. - Labs CBC & Chem 7: 01/10/24 06:08 01/10/24 06:08 Labs: Abnormal Lab Results - Last 24 Hours (Table) 01/09/24 01/10/24 01/10/24 Range/Units 23:26 05:28 06:08 RBC 3.01 L (3.80-5.40) m/uL Hgb 9.2 L D (11.4-16.0) gm/dL Hct 26.7 L (34.0-46.0) % Plt Count 122 L (150-450) k/uL Neutrophils # 7.8 H (1.3-7.7) k/uL Lymphocytes # 0.9 L (1.0-4.8) k/uL Potassium (3.5-5.1) mmol/L Chloride (98-107) mmol/L Creatinine (0.52-1.04) mg/dL Glucose (74-99) mg/dL POC Glucose (mg/dL) 155 H 139 H (70-110) mg/dL Calcium (8.4-10.2) mg/dL Magnesium (1.6-2.3) mg/dL AST (14-36) U/L ALT (4-34) U/L Alkaline Phosphatase (38-126) U/L Total Protein (6.3-8.2) g/dL Albumin (3.5-5.0) g/dL 01/10/24 01/10/24 Range/Units 06:08 06:08 RBC (3.80-5.40) m/uL Hgb (11.4-16.0) gm/dL Hct (34.0-46.0) % Plt Count (150-450) k/uL Neutrophils # (1.3-7.7) k/uL Lymphocytes # (1.0-4.8) k/uL Potassium 2.2 L* (3.5-5.1) mmol/L Chloride 110 H (98-107) mmol/L Creatinine 0.47 L (0.52-1.04) mg/dL Glucose 133 H (74-99) mg/dL POC Glucose (mg/dL) (70-110) mg/dL Calcium 7.1 L (8.4-10.2) mg/dL Magnesium 1.4 L (1.6-2.3) mg/dL AST 57 H (14-36) U/L ALT 97 H (4-34) U/L Alkaline Phosphatase 229 H (38-126) U/L Total Protein 4.1 L (6.3-8.2) g/dL Albumin 2.2 L (3.5-5.0) g/dL Assessment and Plan Assessment: * Severe encephalopathy, abnormal EEG, raising concern for nonconvulsive status. * Altered mental status, likely due to metabolic encephalopathy, and due to above. * Acute UTI, switched to Zerbaxa * Transaminitis, improving * Severe dehydration, resolved * Acute kidney injury, resolved * Hypernatremia, resolved * Hypokalemia, recurring, now 2.2 * Seizure disorder, in remission, but now patient has possible nonconvulsive status. * Reported history of Wernicke's encephalopathy, with wheelchair bound status * Presence of suprapubic catheter. * Malnutrition * Hypotension Plan: * Patient continues to be severely encephalopathic. I spoke to patient's neurologist Dr. Higgins, who mentioned that patient follows at his office for pain management. He has tried to inquire the cause of her weakness, but patient's has not been compliant to have further workup, as he claims that patient already had workup performed in outside facility. Dr. Higgins mentions that patient has limited speech, requires repeated attempt for her to engage in conversations. However her current status appears to be definitely worse than what Dr. Higgins mentioned. In other words, Dr. Higgins does not know the etiology of her current condition including mental status, and generalized disability. * Patient has been accepted at [facility], but pending insurance authorization. Spoke to the nurse, who mentions that it has been authorized and patient will be going to [facility] within an hour. Therefore I will not make any changes in her medication regimen or perform a repeat EEG today. * Repeat prolonged EEG performed 01/09/2024. It was again abnormal with background slowing, consistent with moderate to severe encephalopathy. Pre sence of some sharp waves seen in generalized distribution, seen intermittently and sometimes periodically during the study. After the patient received Ativan 2 mg IV, the background slowed down and some periods of suppression and some sleep spindles were seen with resolution of epileptiform activity. No electrographic seizure was recorded. Recommend continuous EEG monitoring for further evaluation. * Patient probably will benefit from Versed drip and continuous EEG monitoring. Await insurance authorization. Patient has been accepted at [facility]. * Give extra bolus of Dilantin 500 mg 1 dose. Continue to maintain on Dilantin 200 mg twice a day. * Dilantin level this morning < 3.0. * Prolonged EEG for 1 hour 01/08/2024 revealed disorganized background with moderate to severe slowing, assistive of generalized cerebral dysfunction as can be seen with toxic metabolic encephalopathy, or related to diffuse structural brain abnormality. Clinical correlation is recommended. Presence of very frequent high amplitude sharp-appearing waves, which at times become rhythmic at 1 Hz and sometimes become sequential, somewhat in generalized distribution. This suggest underlying cortical irritability and tendency for seizure. Clinically there were many events as mentioned above, concerning for possible seizure. 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 Clinical correlation and continuous EEG monitoring strongly recommended. * Stat ABG was checked, in which her pH is 7.38, pCO2 19, pO2 76 and saturation 95%. Ammonia is normal 9. Hepatic panel also check stat showed slight worsening on the liver functions with AST 67(63 on 01/06/2024) and ALT 150 (previously 237). * With abnormal EEG, patient needs another anticonvulsant. With her abnormal liver functions, would avoid Depakote. Patient is ALLERGIC to Keppra. We will start Dilantin cautiously. * Patient started on Zerbaxa by ID for UTI. * Treatment of other metabolic conditions as per IM/critical care. * Recommend patient to be transferred to higher level of care for continuous EEG monitoring, which is not available at our facility. In the meantime patient will stay in the ICU.
== END 2024-01-10 15:43 | disposition short-term general hospital (02) | DRG 698 ==
LOC: EC 17:51 → 4SSUR 18:27 → 3SCARD 20:30 → 2SICU 22:26
PROVIDERS: ADMIT Internal Medicine; ATTEND Internal Medicine
PROC: 3E043XZ Introduction of Vasopressor into Central Vein, Percutaneous Approach (ICD-10-PCS; principal; 2024-01-05)
PROC: 02HV33Z Insertion of Infusion Device into Superior Vena Cava, Percutaneous Approach (ICD-10-PCS; 2024-01-05)
DX: T83.510A Infection and inflammatory reaction due to cystostomy catheter, initial encounter (principal); A41.50 Gram-negative sepsis, unspecified; G93.41 Metabolic encephalopathy; R65.21 Severe sepsis with septic shock; N17.0 Acute kidney failure with tubular necrosis; J69.0 Pneumonitis due to inhalation of food and vomit; N39.0 Urinary tract infection, site not specified; E27.40 Unspecified adrenocortical insufficiency; E46 Unspecified protein-calorie malnutrition; E87.0 Hyperosmolality and hypernatremia; E87.4 Mixed disorder of acid-base balance; G40.919 Epilepsy, unspecified, intractable, without status epilepticus; B96.4 Proteus (mirabilis) (morganii) as the cause of diseases classified elsewhere; D69.6 Thrombocytopenia, unspecified; E86.0 Dehydration; T83.031A Leakage of indwelling urethral catheter, initial encounter; E87.6 Hypokalemia; E87.8 Other disorders of electrolyte and fluid balance, not elsewhere classified; F17.210 Nicotine dependence, cigarettes, uncomplicated; F32.A Depression, unspecified; F41.9 Anxiety disorder, unspecified; K21.9 Gastro-esophageal reflux disease without esophagitis; M79.7 Fibromyalgia; H81.09 Meniere's disease, unspecified ear; K58.9 Irritable bowel syndrome, unspecified; G89.29 Other chronic pain; M54.2 Cervicalgia; M54.9 Dorsalgia, unspecified; H54.8 Legal blindness, as defined in USA; I73.00 Raynaud's syndrome without gangrene; F40.240 Claustrophobia; Z74.01 Bed confinement status; Z99.3 Dependence on wheelchair; Z87.01 Personal history of pneumonia (recurrent); Z88.6 Allergy status to analgesic agent; Z88.0 Allergy status to penicillin; Z88.8 Allergy status to other drugs, medicaments and biological substances; Z86.14 Personal history of Methicillin resistant Staphylococcus aureus infection
CPT/HCPCS: 36600; 71045; 76770; 80048; 80053; 80076; 80185; 81001; 82009; 82085; 82140; 82525; 82533; 82550; 82607; 82746; 82805; 83036; 83735; 83880; 83921; 84132; 84133; 84145; 84300; 84630; 85025; 87077; 87086; 87186; 87324; 95813; 95816; 96361; 96365; 96368; 99285

== ENCOUNTER 2024-08-20 16:25 | Inpatient (IN) | payer OTHER ==
[2024-08-20] MEDS ORDERED: CEFEPIME 2 GM in SODIUM CHLORIDE 0.9% 100 ML IVPB SCH (17:15)
--- NOTE | 2024-08-20 17:34 | XR ---
EXAMINATION TYPE: XR chest 1V portable DATE OF EXAM: 08/20/2024 5:24 PM COMPARISON: Chest radiographs from 01/06/2024 CLINICAL INDICATION: Female, 39 years old with history of cough; TECHNIQUE: XR chest 1V portable Frontal view of the chest. FINDINGS: Lungs/Pleura: There is no evidence of pleural effusion, focal consolidation, or pneumothorax. Pulmonary vascularity: Unremarkable. Heart/mediastinum: Cardiomediastinal silhouette is unremarkable. Musculoskeletal: No acute osseous pathology. Other findings: None IMPRESSION: No acute cardiopulmonary disease/process. [facility], , 08/20/2024 5:32 PM
[2024-08-20 17:47] LABS: Anisocytosis Slight; Basophils % (A) 0 %; Eosinophils % (A) 0 %; HCT 43.6 % (34.0-46.0); HGB 13.2 gm/dL (11.4-16.0); Hypochromasia Moderate; Lymphocytes # (A) 1.1 k/uL (1.0-4.8); Lymphocytes % (A) 8 %; MCH 28.7 pg (25.0-35.0); MCHC 30.2 g/dL (31.0-37.0); MCV 94.9 fL (80.0-100.0); Mean Platelet Volume 6.9; Monocytes # (A) 0.3 k/uL (0-1.0); Monocytes % (A) 3 %; Neutrophils % (A) 88 %; Platelet Count 389 k/uL (150-450); RDW 16.2 % (11.5-15.5); WBC 12.5 k/uL (3.8-10.6)
[2024-08-20] MEDS ORDERED: NALOXONE 0.4 MG/ML 1 ML VIAL IV PRN (17:51)
[2024-08-20] MEDS ORDERED: ONDANSETRON 4 MG/2 ML VIAL IVP PRN (17:51)
--- NOTE | 2024-08-20 17:55 | ED ---
General Adult HPI - General Chief complaint: Altered Mental Status Stated complaint: AMS Time Seen by Provider: 08/20/24 17:00 Source: EMS, RN notes reviewed, old records reviewed Mode of arrival: EMS - History of Present Illness Initial comments: Patient is a 39-year-old female with history of chronic debility, GERD, Warnicke's encephalopathy, recurrent UTIs, epilepsy, suprapubic catheter that is chronic, recurrent UTIs. Presents for altered mental status, UTI, debility. Transferred from [facility]. Workup there including CT brain unremarkable other than the UTI. Patient is below baseline. Presents for further evaluation by neurology at this time. Apparently has not drink alcohol in quite some time. Does have a history of Warnicke's per chart. Patient is unable provide any meaningful history. Labs at outside facility remarkable for mild hyponatremia of 150, UTI, as well as COVID. Was transferred here for further evaluation. Given fluids as well as started on meropenem. - Related Data Home Medications Medication Instructions Recorded Confirmed Gabapentin [Neurontin] 1,200 mg PO TID 12/25/17 08/20/24 QUEtiapine FUMARATE 50 mg PO HS 11/25/19 08/20/24 Zolpidem Tartrate [Ambien Cr] 12.5 mg PO HS 11/25/19 08/20/24 Fludrocortisone [Florinef] 0.1 mg PO BID 07/19/21 08/20/24 Famotidine 40 mg PO HS 01/05/24 08/20/24 Oxybutynin Chloride [oxyBUTYnin 10 mg PO DAILY 01/05/24 08/20/24 chloride ER] Pyridoxine [Vitamin B-6] 50 mg PO DAILY 01/05/24 08/20/24 Thiamine [Vitamin B-1] 100 mg PO DAILY 01/05/24 08/20/24 Topiramate [Topamax] 50 mg PO TID 01/05/24 08/20/24 Baclofen [Lioresal] 20 mg PO TID 08/20/24 08/20/24 Cranberry/Vitamin C 60mg/250mg 1 tab PO DAILY 08/20/24 08/20/24 HYDROcodone/APAP 7.5-325MG [[place] 1 tab PO Q6H PRN 08/20/24 08/20/24 7.5-325] Lactulose 10 gm PO TID PRN 08/20/24 08/20/24 Multivit-Min/Iron/Folic/Lutein 1 tab PO DAILY 08/20/24 08/20/24 [Centrum Silver Women Tablet] Phenytoin Sodium Extended 100 mg PO TID 08/20/24 08/20/24 [Dilantin] Sodium Bicarbonate Tab 650 mg PO BID 08/20/24 08/20/24 Venlafaxine HCl [Effexor] 75 mg PO TID 08/20/24 08/20/24 allopurinoL [Zyloprim] 100 mg PO DAILY 08/20/24 08/20/24 busPIRone HCl [Buspar] 5 mg PO TID 08/20/24 08/20/24 Allergies Allergy/AdvReac Type Severity Reaction Status Date / Time levetiracetam [From [facility]] Allergy Rash/Hives Verified 08/20/24 21:03 Penicillins Allergy "STOPPED Verified 08/20/24 21:03 BREATHING" NSAIDS (Non-Steroidal AdvReac "MAY CAUSE Verified 08/20/24 21:03 Anti-Inflamma ULCERS R/T BARIATRIC SX" Review of Systems ROS Statement: Those systems with pertinent positive or pertinent negative responses have been documented in the HPI. ROS Other: All systems not noted in ROS Statement are negative. Past Medical History Past Medical History: Fibromyalgia, GERD/Reflux, Pneumonia, Seizure Disorder Additional Past Medical History / Comment(s): has seizures on a daily basis one or more a day, cHRONIC NECK/BACK PAIN, N/T FINGERS AND TOES, RAYNAUDS SYN. MENIERE'S,tinnitus, past uterine prolpase(sx) IBS, MUSCLE WEAKNESS, USES WALKER OR W/C History of Any Multi-Drug Resistant Organisms: ESBL, MRSA Date of last positivie culture/infection: 01/06/24 - ESBL; 08/18/22 - MRSA MDRO Source:: URINE - ESBL; Urine - MRSA Past Surgical History: Bariatric Surgery, Cholecystectomy, Hysterectomy Additional Past Surgical History / Comment(s): EYE SX (MUSCLES), radha en y 2012 Past Anesthesia/Blood Transfusion Reactions: No Reported Reaction Additional Past Anesthesia/Blood Transfusion Reaction / Comment(s): clausterphobia Past Psychological History: Anxiety, Depression Smoking Status: Unknown if ever smoked Past Alcohol Use History: Unable to Obtain Past Drug Use History: Unable to Obtain, Marijuana - Past Family History Mother Family Medical History: Cancer Additional Family Medical History / Comment(s): TONGUE Father Family Medical History: Hypertension General Exam - General Exam Comments Initial Comments: General: Appears cachectic, altered. Seems to have chronic debility. HEAD: Normal with no signs of head trauma. EYES: PERRLA, EOMI, conjunctiva normal, no discharge. Pupils are 3 to 4 mm and equal bilaterally. ENT: Hearing grossly intact, normal oropharynx. RESPIRATORY: Clear breath sounds bilaterally. No wheezes, rales, or rhonchi. C/V: Regular rate and rhythm. S1 and S2 auscultated, no edema, peripheral pulses 2+ and intact throughout ABD: Abd is soft, nontender, nondistended. Suprapubic catheter site appears clean. EXT: Normal range of motion, no obvious deformity SKIN: No rashes or lesions observed on exposed skin. NEURO: Alert and oriented x 1. Unknown baseline but this seems similar to prior visit from last year for similar complaints. Able to move all 4 extremities somewhat. Difficult to obtain accurate neuroexam due to patient's current state. Course Vital Signs 08/20/24 08/20/24 08/20/24 16:29 18:31 20:16 Temperature 98.5 F Pulse Rate 87 100 104 H Respiratory 16 18 18 Rate Blood Pressure 116/87 111/87 123/91 O2 Sat by Pulse 97 96 97 Oximetry Medical Decision Making - Medical Decision Making Was pt. sent in by a medical professional or institution (, PA, STEREOPTICIAN, urgent care, hospital, or half-way...) When possible be specific @ -No Did you speak to anyone other than the patient for history (EMS, parent, family, police, friend...)? What history was obtained from this source @ -No Did you review nursing and triage notes (agree or disagree)? Why? @ -I reviewed and agree with nursing and triage notes Were old charts reviewed (outside hosp., previous admission, EMS record, old EKG, old radiological studies, urgent care reports/EKG's, half-way records)? Report findings @ -Reviewed transferring paperwork for [facility] from earlier today. This included CT brain report which showed no obvious acute intracranial process. Remainder the labs remarkable for hyponatremia, UTI, COVID-positive. Differential Diagnosis (chest pain, altered mental status, abdominal pain women, abdominal pain men, vaginal bleeding, weakness, fever, dyspnea, syncope, headache, dizziness, GI bleed, back pain, seizure, CVA, palpatations, mental health, musculoskeletal)? @ -UTI, Warnicke's encephalopathy, dehydration, this list is not all inclusive. EKG interpreted by me (3pts min.). @ -As above X-rays interpreted by me (1pt min.). @ -Chest x-ray reveals no obvious acute cardiopulmonary process. CT interpreted by me (1pt min.). @ -None done U/S interpreted by me (1pt. min.). @ -None done What testing was considered but not performed or refused? (CT, X-rays, U/S, labs)? Why? @ -None What meds were considered but not given or refused? Why? @ -None Did you discuss the management of the patient with other professionals (professionals i.e. , PA, STEREOPTICIAN, lab, RT, psych nurse, social sciences research scientist, diesel engine mechanic, teacher, forest fire management officer, disease case manager)? Give summary @ -Discussed with admitting physician, Dr. Brooks who was in agreement the plan for admission. Infectious disease and neurology consulted. Was smoking cessation discussed for >3mins.? @ -No Was critical care preformed (if so, how long)? @ -No Were there social determinants of health that impacted care today? How? (Homel essness, low income, unemployed, alcoholism, drug addiction, transportation, low edu. Level, literacy, decrease access to med. care, half-way, rehab)? @ -No Was there de-escalation of care discussed even if they declined (Discuss DNR or withdrawal of care, Hospice)? DNR status @ -No What co-morbidities impacted this encounter? (DM, HTN, Smoking, COPD, CAD, Cancer, CVA, ARF, Chemo, Hep., AIDS, mental health diagnosis, sleep apnea, morbid obesity)? @ -None Was patient admitted / discharged? Hospital course, mention meds given and route, prescriptions, significant lab abnormalities, going to OR and other pertinent info. @ -Based on patient's presentation and physical exam, transferred for further neurology evaluation over concern for altered mental status in the setting COVID-19 infection, UTI. Vital signs are within acceptable limits. Patient is altered and is on provide much in terms of history. Will repeat workup but we will continue patient on meropenem based on patient's previous urine cultures. Patient started on IV fluids. Patient empirically placed on IV thiamine. Will repeat labs patient will be admitted for neurology evaluation. Neurology consulted. Infectious disease consulted. Repeat labs remarkable for leukocytosis of 12. Continued hyponatremia and hypochloremia . Remainder the labs are relatively unremarkable. Patient will be admitted at this time. EKG a nd chest x-ray unremarkable. I spoke with the admitting provider, Dr. Brooks who accepted the admission. Undiagnosed new problem with uncertain prognosis? @ -No Drug Therapy requiring intensive monitoring for toxicity (Heparin, Nitro, Insulin, Cardizem)? @ -No Were any procedures done? @ -No Diagnosis/symptom? @ -COVID-19 infection, altered mental status in the setting of UTI, possible Wernicke's syndrome. Acute, or Chronic, or Acute on Chronic? @ -Acute Uncomplicated (without systemic symptoms) or Complicated (systemic symptoms)? @ -Complicated Side effects of treatment? @ -No Exacerbation, Progression, or Severe Exacerbation? @ -No Poses a threat to life or bodily function? How? (Chest pain, [place], [place], pneumonia, PE, COPD, DKA, ARF, appy, cholecystitis, CVA, Diverticulitis, Homicidal, Suicidal, threat to staff... and all critical care pts) @ -Yes - Lab Data Result diagrams: 08/20/24 17:30 08/20/24 17:30 Lab Results 08/20/24 08/20/24 08/20/24 Range/Units 17:30 17:30 17:30 WBC 12.5 H (3.8-10.6) k/uL RBC 4.60 (3.80-5.40) m/uL Hgb 13.2 (11.4-16.0) gm/dL Hct 43.6 (34.0-46.0) % MCV 94.9 (80.0-100.0) fL MCH 28.7 (25.0-35.0) pg MCHC 30.2 L (31.0-37.0) g/dL RDW 16.2 H (11.5-15.5) % Plt Count 389 (150-450) k/uL MPV 6.9 Neutrophils % 88 % Lymphocytes % 8 % Monocytes % 3 % Eosinophils % 0 % Basophils % 0 % Neutrophils # 11.0 H (1.3-7.7) k/uL Lymphocytes # 1.1 (1.0-4.8) k/uL Monocytes # 0.3 (0-1.0) k/uL Eosinophils # 0.0 (0-0.7) k/uL Basophils # 0.0 (0-0.2) k/uL Hypochromasia Moderate Anisocytosis Slight PT 10.7 (10.0-12.5) sec INR 1.0 (<1.2) APTT 23.6 (22.0-30.0) sec Sodium 150 H (137-145) mmol/L Potassium 4.1 (3.5-5.1) mmol/L Chloride 118 H (98-107) mmol/L Carbon Dioxide 15 L (22-30) mmol/L Anion Gap 17 mmol/L BUN 30 H (7-17) mg/dL Creatinine 0.88 (0.52-1.04) mg/dL Est GFR (CKD-EPI)AfAm >90 (>60 ml/min/1.73 sqM) Est GFR (CKD-EPI)NonAf 84 (>60 ml/min/1.73 sqM) Glucose 119 H (74-99) mg/dL Calcium 9.8 (8.4-10.2) mg/dL Total Bilirubin 0.4 (0.2-1.3) mg/dL AST 20 (14-36) U/L ALT 24 (4-34) U/L Alkaline Phosphatase 174 H (38-126) U/L Ammonia (<30) umol/L Total Protein 7.2 (6.3-8.2) g/dL Albumin 4.3 (3.5-5.0) g/dL Salicylates <1.0 mg/dL Acetaminophen <10.0 ug/mL Serum Alcohol <10 mg/dL 08/20/24 Range/Units 17:30 WBC (3.8-10.6) k/uL RBC (3.80-5.40) m/uL Hgb (11.4-16.0) gm/dL Hct (34.0-46.0) % MCV (80.0-100.0) fL MCH (25.0-35.0) pg MCHC (31.0-37.0) g/dL RDW (11.5-15.5) % Plt Count (150-450) k/uL MPV Neutrophils % % Lymphocytes % % Monocytes % % Eosinophils % % Basophils % % Neutrophils # (1.3-7.7) k/uL Lymphocytes # (1.0-4.8) k/uL Monocytes # (0-1.0) k/uL Eosinophils # (0-0.7) k/uL Basophils # (0-0.2) k/uL Hypochromasia Anisocytosis PT (10.0-12.5) sec INR (<1.2) APTT (22.0-30.0) sec Sodium (137-145) mmol/L Potassium (3.5-5.1) mmol/L Chloride (98-107) mmol/L Carbon Dioxide (22-30) mmol/L Anion Gap mmol/L BUN (7-17) mg/dL Creatinine (0.52-1.04) mg/dL Est GFR (CKD-EPI)AfAm (>60 ml/min/1.73 sqM) Est GFR (CKD-EPI)NonAf (>60 ml/min/1.73 sqM) Glucose (74-99) mg/dL Calcium (8.4-10.2) mg/dL Total Bilirubin (0.2-1.3) mg/dL AST (14-36) U/L ALT (4-34) U/L Alkaline Phosphatase (38-126) U/L Ammonia 21 (<30) umol/L Total Protein (6.3-8.2) g/dL Albumin (3.5-5.0) g/dL Salicylates mg/dL Acetaminophen ug/mL Serum Alcohol mg/dL - EKG Data -: EKG Interpreted by Me EKG Comments: 12-lead Electrocardiogram Interpretation Note EKG was reviewed and interpreted by myself. 12-lead ECG performed at 1640 is interpreted by me as revealing normal sinus rhythm at a rate of 85 beats per minute. [place] is rightward deviated. [place] interval is 129 ms, QRS duration is 84 ms, QTc is 406 ms.. There were no ST or T wave abnormalities to suggest myocardial ischemia or injury. R wave progression across the precordium was satisfactory. By my interpretation this EKG is non-diagnostic for acute ischemia. Disposition Clinical Impression: AMS (altered mental status), UTI (urinary tract infection), COVID-19 virus infection Disposition: ADMITTED IP TO THIS HOSP Condition: Serious Time of Disposition: 17:55
[2024-08-20 17:58] LABS: Partial Thromboplastin Time 23.6 sec (22.0-30.0); Prothrombin Time 10.7 sec (10.0-12.5)
[2024-08-20] MEDS: MEROPENEM 1 GM in SODIUM CHLORIDE 0.9% 100 ML IVPB ONE (18:01)
[2024-08-20] MEDS: SODIUM CHLORIDE 0.9% 1,000 ML IV STA (18:02)
[2024-08-20 18:06] LABS: ALT 24 U/L (4-34); AST 20 U/L (14-36); Acetaminophen <10.0 ug/mL; African American GFR (CKD) >90 (>60 ml/min/1.73 sqM); Albumin 4.3 g/dL (3.5-5.0); Alcohol <10 mg/dL; Alkaline Phosphatase 174 U/L (38-126); Anion Gap 17 mmol/L; Blood Urea Nitrogen 30 mg/dL (7-17); Calcium 9.8 mg/dL (8.4-10.2); Carbon Dioxide 15 mmol/L (22-30); Chloride 118 mmol/L (98-107); Glucose 119 mg/dL (74-99); Non-African American GFR(CKD) 84 (>60 ml/min/1.73 sqM); Potassium 4.1 mmol/L (3.5-5.1); Salicylate <1.0 mg/dL; Sodium 150 mmol/L (137-145); Total Bilirubin 0.4 mg/dL (0.2-1.3); Total Protein 7.2 g/dL (6.3-8.2)
[2024-08-20] MEDS: THIAMINE 500 MG in SODIUM CHLORIDE 0.9% 50 ML IVPB ONE (18:08)
[2024-08-20 19:13] LABS: Appearance,Urine Cloudy (Clear); Bacteria,Urine Rare /hpf; Bilirubin,Urine Negative (Negative); Blood,Urine Trace (Negative); Calcium Oxalate Crystals,Urine Occasional /hpf; Color,Urine Light Yellow; Glucose,Urine (UA) Negative (Negative); Ketones,Urine Negative (Negative); Leukocyte Esterase,Urine Large (Negative); Mucus,Urine Rare /hpf; Nitrite,Urine Positive (Negative); Protein,Urine 2+ (Negative); RBC,Urine 9 /hpf (0-5); Specific Gravity,Urine 1.016 (1.001-1.035); Urobilinogen,Urine <2.0 mg/dL (<2.0); WBC,Urine 45 /hpf (0-5)
[2024-08-20 19:19] LABS: Amphetamine Screen,Urine Not Detected (NotDetected); Barbiturate Screen,Urine Detected (NotDetected); Benzodiazepines Screen,Urine Not Detected (NotDetected); Cocaine Screen,Urine Not Detected (NotDetected); Methadone Screen, Urine Not Detected (NotDetected); Opiate Screen,Urine Detected (NotDetected); Oxycodone Screen, Urine Not Detected (NotDetected); Phencyclidine Screen,Urine Not Detected (NotDetected); Tricyclic Antidepressant,Urine Not Detected (NotDetected); Urn Cannabinoid Scrn Not Detected (NotDetected)
[2024-08-20] MEDS ORDERED: LACTULOSE 20 GM/30 ML CUP PO PRN (21:13)
[2024-08-20] MEDS: QUEtiapine 50 MG TAB PO SCH (22:18)
[2024-08-20] MEDS: busPIRone HCl 5 MG TAB PO SCH (22:19)
[2024-08-20] MEDS: VENLAFAXINE HCL 75 MG TAB PO SCH (22:19)
[2024-08-20] MEDS: PHENYTOIN SODIUM EXTENDED 100 MG CAP PO SCH (22:19)
[2024-08-20] MEDS: SODIUM BICARBONATE TAB 650 MG TAB PO SCH (22:19)
[2024-08-20] MEDS: TOPIRAMATE 25 MG TAB PO SCH (22:19)
[2024-08-20] MEDS: ZOLPIDEM 5 MG TAB PO SCH (22:19)
[2024-08-21] MEDS: THIAMINE 500 MG in SODIUM CHLORIDE 0.9% 50 ML IVPB SCH (00:49)
[2024-08-21] MEDS: MEROPENEM 1 GM in SODIUM CHLORIDE 0.9% 100 ML IVPB SCH (01:12)
--- NOTE | 2024-08-21 01:23 | P.HPIM ---
History of Present Illness H&P Date: 08/20/24 History of present illness; Patient is a 39-year-old female with chronic debility, GERD, Wernicke's e ncephalopathy, recurrent UTIs, epilepsy, indwelling suprapubic catheter, who presents for altered mental status, UTI and debility. Patient unable to provide history and was unable to reach family further history. She was transferred from [facility] with workup including CT brain unremarkable other than the UTI. Labs at outside facility remarkable for mild hyponatremia of 150, UTI, as well as COVID. She is currently below her baseline mentation. Apparently, she has abstained from alcohol for extended time. Spoke with the ER physician, patient admission was accepted by internal medicine service for treatment. REVIEW OF SYSTEMS: Cannot fully assess due to patient's encephalopathy. PHYSICAL EXAMINATION: Vitals reviewed GENERAL: Resting upright in bed. Frail appearing. Appears older than stated age. EYES: PERRL, no scleral injection or icterus. HENT: Normocephalic, atraumatic NECK: No tracheal deviation, full range of motion. CARDIOVASCULAR: S1 and S2 present. No murmurs, rubs, or gallops. PULMONARY: Chest is clear to auscultation, no wheezing, rhonchi, or crackles. ABDOMEN: Soft, nontender, nondistended. No palpable organomegaly. Indwelling suprapubic catheter present on admission. MUSCULOSKELETAL: Contracture of feet bilaterally. EXTREMITIES: No apparent cyanosis, clubbing. No pedal edema. NEUROLOGICAL: Awake, unable to assess orientation, not responding to questions. Gross neurological examination with no apparent focal deficits. SKIN: No apparent rashes. ER FINDINGS: Labs significant for WBC 12.5, sodium 150, chloride 118, bicarb 15, anion gap 17, BUN 30, creatinine 0.88, glucose 119, ALP 174. UA significant for cloudy appearance, 2+ protein, trace blood, nitrate positive, leukocyte esterase large, urine RBC 9, urine WBC 45, calcium oxalate crystals occasional. Urine toxicology positive for opiates and barbiturates, negative for salicylate, acetaminophen, alcohol and all others. EKG independently interpreted showed sinus rhythm heart rate of 85, QTc 406, no ST segment elevation or depression seen, no T-wave inversions seen. Chest x-ray done independently interpreted showed no acute cardiopulmonary process. Assessment and Plan: In summary, patient is a 39-year-old female with Wernicke's encephalopathy, recurrent UTIs, epilepsy, indwelling suprapubic catheter, who presents for altered mental status, UTI and debility. #Acute encephalopathy, likely metabolic vs infectious #UTI, indwelling suprapubic catheter present on admission due to neurogenic bladder #History of previous MRSA and ESBL infections #High anion gap metabolic acidosis #Wernicke's encephalopathy -CT head in [facility] unremarkable -CXR no acute cardiopulmonary process -Urine toxicology positive for opiates and barbiturates UA significant for cloudy appearance, 2+ protein, nitrate positive, leukocyte esterase large, urine RBC 9, urine WBC 45, calcium oxalate crystals occasional Bicarb 15, anion gap 17 -Thiamine ordered -Blood and urine culture ordered Lactate pending Indwelling suprapubic catheter present on admission Continue meropenem IV every 8 hours -Neurology consulted ID consulted #Hypernatremia, hypovolemic, likely due to poor intake versus Ware's Initial sodium 150 AM cortisol ordered Patient taking daily fludrocortisone Continue IV NS 100 mL/h Monitor CMP closely monitor Na #Pre-renal azotemia, due to dehydration Initial BUN 30, creatinine 0.88 Continue IV NS as above Monitor BMP #Epilepsy Resume home medications Phenytoin levels ordered Chronic Medical Conditions #GERD #Fibromyalgia #Anxiety/depression #Wernicke's encephalopathy Continue home medications DVT ppx: Subq Lovenox 40 meq daily Code status: Full code F: IV Normal saline 100 mL/hr E: Replete as needed N: Heart healthy diet A: Uses wheelchair Anticipated discharge place: Pending clinical course Anticipated discharge time: 3 to 5 days Dictation was produced using [employer] dictation software. Please excuse any grammatical, word or spelling errors. I have seen and evaluated the patient today. I Discussed the case with the resident and agree with the resident's findings I edited the assessment and plan as necessary as documented in the resident's note. Past Medical History Past Medical History: Fibromyalgia, GERD/Reflux, Pneumonia, Seizure Disorder History of Any Multi-Drug Resistant Organisms: ESBL, MRSA Date of last positivie culture/infection: 01/06/24 - ESBL; 08/18/22 - MRSA MDRO Source:: URINE - ESBL; Urine - MRSA Past Surgical History: Bariatric Surgery, Cholecystectomy, Hysterectomy Additional Past Surgical History / Comment(s): EYE SX (MUSCLES), radha en y 2012 Past Anesthesia/Blood Transfusion Reactions: No Reported Reaction Additional Past Anesthesia/Blood Transfusion Reaction / Comment(s): clausterphobia Past Psychological History: Anxiety, Depression Smoking Status: Unknown if ever smoked Past Alcohol Use History: Unable to Obtain Past Drug Use History: Unable to Obtain, Marijuana - Past Family History Mother Family Medical History: Cancer Additional Family Medical History / Comment(s): TONGUE Father Family Medical History: Hypertension Medications and Allergies Home Medications Medication Instructions Recorded Confirmed Type Gabapentin [Neurontin] 1,200 mg PO TID 12/25/17 08/20/24 History QUEtiapine FUMARATE 50 mg PO HS 11/25/19 08/20/24 History Zolpidem Tartrate [Ambien Cr] 12.5 mg PO HS 11/25/19 08/20/24 History Fludrocortisone [Florinef] 0.1 mg PO BID 07/19/21 08/20/24 History Famotidine 40 mg PO HS 01/05/24 08/20/24 History Oxybutynin Chloride [oxyBUTYnin 10 mg PO DAILY 01/05/24 08/20/24 History chloride ER] Pyridoxine [Vitamin B-6] 50 mg PO DAILY 01/05/24 08/20/24 History Thiamine [Vitamin B-1] 100 mg PO DAILY 01/05/24 08/20/24 History Topiramate [Topamax] 50 mg PO TID 01/05/24 08/20/24 History Baclofen [Lioresal] 20 mg PO TID 08/20/24 08/20/24 History Cranberry/Vitamin C 60mg/250mg 1 tab PO DAILY 08/20/24 08/20/24 History HYDROcodone/APAP 7.5-325MG [[place] 1 tab PO Q6H PRN 08/20/24 08/20/24 History 7.5-325] Lactulose 10 gm PO TID PRN 08/20/24 08/20/24 History Multivit-Min/Iron/Folic/Lutein 1 tab PO DAILY 08/20/24 08/20/24 History [Centrum Silver Women Tablet] Phenytoin Sodium Extended 100 mg PO TID 08/20/24 08/20/24 History [Dilantin] Sodium Bicarbonate Tab 650 mg PO BID 08/20/24 08/20/24 History Venlafaxine HCl [Effexor] 75 mg PO TID 08/20/24 08/20/24 History allopurinoL [Zyloprim] 100 mg PO DAILY 08/20/24 08/20/24 History busPIRone HCl [Buspar] 5 mg PO TID 08/20/24 08/20/24 History Allergies Allergy/AdvReac Type Severity Reaction Status Date / Time levetiracetam [From [facility]] Allergy Rash/Hives Verified 08/20/24 21:03 Penicillins Allergy "STOPPED Verified 08/20/24 21:03 BREATHING" NSAIDS (Non-Steroidal AdvReac "MAY CAUSE Verified 08/20/24 21:03 Anti-Inflamma ULCERS R/T BARIATRIC SX" Physical Exam Vitals: Vital Signs Temp Pulse Resp BP Pulse Ox 08/20/24 18:31 100 18 111/87 96 08/20/24 16:29 98.5 F 87 16 116/87 97 Intake and Output 08/20/24 08/20/24 08/20/24 06:59 14:59 22:59 Other: Weight 52.163 kg Results CBC & Chem 7: 08/20/24 17:30 08/20/24 17:30 Labs: Abnormal Lab Results - Last 24 Hours (Table) 08/20/24 08/20/24 08/20/24 Range/Units 17:30 17:30 18:40 WBC 12.5 H (3.8-10.6) k/uL MCHC 30.2 L (31.0-37.0) g/dL RDW 16.2 H (11.5-15.5) % Neutrophils # 11.0 H (1.3-7.7) k/uL Sodium 150 H (137-145) mmol/L Chloride 118 H (98-107) mmol/L Carbon Dioxide 15 L (22-30) mmol/L BUN 30 H (7-17) mg/dL Glucose 119 H (74-99) mg/dL Alkaline Phosphatase 174 H (38-126) U/L Urine Appearance Cloudy H (Clear) Urine Protein 2+ H (Negative) Urine Blood Trace H (Negative) Urine Nitrite Positive H (Negative) Ur Leukocyte Esterase Large H (Negative) Urine RBC 9 H (0-5) /hpf Urine WBC 45 H (0-5) /hpf Calcium Oxalate Crystal Occasional H (None) /hpf Urine Bacteria Rare H (None) /hpf Urine Mucus Rare H (None) /hpf Urine Opiates Screen Detected H (NotDetected) Ur Barbiturates Screen Detected H (NotDetected)
[2024-08-21 02:51] LABS: African American GFR (CKD) >90 (>60 ml/min/1.73 sqM); Anion Gap 14 mmol/L; Blood Urea Nitrogen 32 mg/dL (7-17); Calcium 9.2 mg/dL (8.4-10.2); Carbon Dioxide 18 mmol/L (22-30); Chloride 121 mmol/L (98-107); Glucose 129 mg/dL (74-99); Non-African American GFR(CKD) >90 (>60 ml/min/1.73 sqM); Potassium 4.2 mmol/L (3.5-5.1); Sodium 153 mmol/L (137-145)
[2024-08-21] MEDS: SODIUM CHLORIDE 0.45% 1,000 ML IV SCH (03:58)
[2024-08-21 08:00] LABS: Anisocytosis Slight; Basophils % (A) 0 %; Eosinophils # (A) 0.1 k/uL (0-0.7); Eosinophils % (A) 1 %; HCT 40.7 % (34.0-46.0); HGB 12.2 gm/dL (11.4-16.0); Hypochromasia Marked; Lymphocytes # (A) 1.2 k/uL (1.0-4.8); Lymphocytes % (A) 10 %; MCH 28.9 pg (25.0-35.0); MCHC 29.9 g/dL (31.0-37.0); MCV 96.7 fL (80.0-100.0); Monocytes # (A) 0.3 k/uL (0-1.0); Monocytes % (A) 3 %; Neutrophils # (A) 9.5 k/uL (1.3-7.7); Neutrophils % (A) 86 %; Platelet Count 358 k/uL (150-450); RBC 4.21 m/uL (3.80-5.40); RDW 16.4 % (11.5-15.5); WBC 11.1 k/uL (3.8-10.6)
[2024-08-21 08:16] LABS: ALT 25 U/L (4-34); AST 24 U/L (14-36); African American GFR (CKD) 89 (>60 ml/min/1.73 sqM); Albumin 4.1 g/dL (3.5-5.0); Alkaline Phosphatase 156 U/L (38-126); Anion Gap 10 mmol/L; Blood Urea Nitrogen 32 mg/dL (7-17); Calcium 9.3 mg/dL (8.4-10.2); Carbon Dioxide 20 mmol/L (22-30); Chloride 123 mmol/L (98-107); Glucose 128 mg/dL (74-99); Non-African American GFR(CKD) 77 (>60 ml/min/1.73 sqM); Potassium 3.8 mmol/L (3.5-5.1); Sodium 153 mmol/L (137-145); Total Bilirubin 0.4 mg/dL (0.2-1.3); Total Protein 6.7 g/dL (6.3-8.2)
[2024-08-21] MEDS: FLUDROCORTISONE 0.1 MG TAB PO SCH (08:47)
[2024-08-21] MEDS: allopurinoL 100 MG TAB PO SCH (08:47)
[2024-08-21] MEDS: PYRIDOXINE 50 MG TAB PO SCH (08:51)
[2024-08-21] MEDS: ENOXAPARIN 40 MG/0.4 ML SYRINGE SQ SCH (08:54)
[2024-08-21] MEDS: OXYBUTYNIN 10 MG TAB.ER.24 PO SCH (08:58)
[2024-08-21] MEDS ORDERED: THIAMINE 100 MG TAB PO SCH (09:00)
--- NOTE | 2024-08-21 14:05 | P.PN ---
Subjective Progress Note Date: 08/21/24 No new complaints today. Pt is doing a little better mentation nicolas but is still quite lethargic and confused. Gen: In NAD, non-toxic HEENT: normocephalic, atraumatic, hearing acuity is intant, mucous membranes moist CVS: perfusing all extremities well, no pitting edema, Respiratory: symmetric chest expansion, no accessory muscle use, GI: soft, NTTP, ND, : no suprapubic tenderness, no CVA tenderness MSK/Derm: no rashes, cyanosis Neuro: CN II-XII intact, no motor weakness, Hospital course: Patient is a 39-year-old female with chronic debility, GERD, Wernicke's encephalopathy, recurrent UTIs, epilepsy, indwelling suprapubic catheter, who presented for altered mental status, UTI and debility. She was transferred from [facility] with workup including CT brain unremarkable other than the UTI. Labs at outside facility remarkable for mild hyponatremia of 150, UTI, as well as COVID. Spoke with the ER physician, patient admission was accepted by internal medicine service for treatment. Labs significant for WBC 12.5, sodium 150, chloride 118, bicarb 15, anion gap 17, BUN 30, creatinine 0.88, glucose 119, ALP 174. UA significant for cloudy appearance, 2+ protein, trace blood, nitrate positive, leukocyte esterase large, urine RBC 9, urine WBC 45, calcium oxalate crystals occasional. Urine toxicology positive for opiates and barbiturates, negative for salicylate, acetaminophen, alcohol and all others. EKG independently interpreted showed sinus rhythm heart rate of 85, QTc 406, no ST segment elevation or depression seen, no T-wave inversions seen. Chest x-ray done independently interpreted showed no acute cardiopulmonary process. Assessment and Plan: In summary, patient is a 39-year-old female with Wernicke's encephalopathy, recurrent UTIs, epilepsy, indwelling suprapubic catheter, who presents for altered mental status, UTI and debility. #Acute encephalopathy, likely metabolic vs infectious #UTI, indwelling suprapubic catheter present on admission due to neurogenic bladder #History of previous MRSA and ESBL infections #High anion gap metabolic acidosis #Wernicke's encephalopathy -Thiamine ordered, 500mg IV q8h for 1 more day, then 250mg IV daily for 5 days, then weaning it down to 100mg IV daily -Blood and urine culture ordered Lactate pending Indwelling suprapubic catheter present on admission, also has a urostomy Continue meropenem IV every 8 hours -Neurology consulted ID consulted #Hypernatremia, hypovolemic, likely due to poor intake versus Freddy's Initial sodium 150 AM cortisol ordered Patient taking daily fludrocortisone Continue IV NS 100 mL/h Monitor CMP closely monitor Na #Pre-renal azotemia, due to dehydration Initial BUN 30, creatinine 0.88 Continue IV NS as above Monitor BMP #Epilepsy Resume home medications Phenytoin levels ordered Chronic Medical Conditions #GERD #Fibromyalgia #Anxiety/depression #Wernicke's encephalopathy Continue home medications DVT ppx: Subq Lovenox 40 meq daily Code status: Full code F: IV Normal saline 100 mL/hr E: Replete as needed N: Heart healthy diet A: Uses wheelchair Anticipated discharge place: Pending clinical course Anticipated discharge time: 3 to 5 days Objective - Vital Signs Vital signs: Vital Signs Temp 98.0 F 08/21/24 13:30 Pulse 93 08/21/24 13:30 Resp 16 08/21/24 13:30 BP 115/84 08/21/24 13:30 Pulse Ox 98 08/21/24 13:30 FiO2 Intake & Output 08/20/24 08/21/24 08/21/24 18:59 06:59 18:59 Weight 52.163 kg - Labs CBC & Chem 7: 08/21/24 07:54 08/21/24 07:54 Labs: Abnormal Lab Results - Last 24 Hours (Table) 08/20/24 08/20/24 08/20/24 Range/Units 17:30 17:30 18:40 WBC 12.5 H (3.8-10.6) k/uL MCHC 30.2 L (31.0-37.0) g/dL RDW 16.2 H (11.5-15.5) % Neutrophils # 11.0 H (1.3-7.7) k/uL Sodium 150 H (137-145) mmol/L Chloride 118 H (98-107) mmol/L Carbon Dioxide 15 L (22-30) mmol/L BUN 30 H (7-17) mg/dL Glucose 119 H (74-99) mg/dL Alkaline Phosphatase 174 H (38-126) U/L Urine Appearance Cloudy H (Clear) Urine Protein 2+ H (Negative) Urine Blood Trace H (Negative) Urine Nitrite Positive H (Negative) Ur Leukocyte Esterase Large H (Negative) Urine RBC 9 H (0-5) /hpf Urine WBC 45 H (0-5) /hpf Calcium Oxalate Crystal Occasional H (None) /hpf Urine Bacteria Rare H (None) /hpf Urine Mucus Rare H (None) /hpf Urine Opiates Screen Detected H (NotDetected) Ur Barbiturates Screen Detected H (NotDetected) 08/21/24 08/21/24 08/21/24 Range/Units 02:20 07:54 07:54 WBC 11.1 H (3.8-10.6) k/uL MCHC 29.9 L (31.0-37.0) g/dL RDW 16.4 H (11.5-15.5) % Neutrophils # 9.5 H (1.3-7.7) k/uL Sodium 153 H 153 H (137-145) mmol/L Chloride 121 H 123 H (98-107) mmol/L Carbon Dioxide 18 L 20 L (22-30) mmol/L BUN 32 H 32 H (7-17) mg/dL Glucose 129 H 128 H (74-99) mg/dL Alkaline Phosphatase 156 H (38-126) U/L Urine Appearance (Clear) Urine Protein (Negative) Urine Blood (Negative) Urine Nitrite (Negative) Ur Leukocyte Esterase (Negative) Urine RBC (0-5) /hpf Urine WBC (0-5) /hpf Calcium Oxalate Crystal (None) /hpf Urine Bacteria (None) /hpf Urine Mucus (None) /hpf Urine Opiates Screen (NotDetected) Ur Barbiturates Screen (NotDetected)
[2024-08-21] MEDS ORDERED: LORazepam 2 MG/ML INJ IV PRN ×4 (16:53)
[2024-08-21 17:05] LABS: Anisocytosis Slight; Basophils # (A) 0.1 k/uL (0-0.2); Basophils % (A) 1 %; Eosinophils # (A) 0.1 k/uL (0-0.7); Eosinophils % (A) 1 %; HCT 42.5 % (34.0-46.0); HGB 12.1 gm/dL (11.4-16.0); Hypochromasia Marked; Lymphocytes # (A) 1.5 k/uL (1.0-4.8); Lymphocytes % (A) 17 %; MCH 29.1 pg (25.0-35.0); MCHC 28.4 g/dL (31.0-37.0); Macrocytosis Slight; Mean Platelet Volume 8.2; Monocytes # (A) 0.3 k/uL (0-1.0); Monocytes % (A) 3 %; Neutrophils # (A) 6.9 k/uL (1.3-7.7); Neutrophils % (A) 78 %; Platelet Count 317 k/uL (150-450); RBC 4.16 m/uL (3.80-5.40); RDW 16.5 % (11.5-15.5); WBC 8.9 k/uL (3.8-10.6)
[2024-08-21 17:15] LABS: MCV 102.2 fL (80.0-100.0)
[2024-08-21 18:07] LABS: African American GFR (CKD) >90 (>60 ml/min/1.73 sqM); Anion Gap 11 mmol/L; Blood Urea Nitrogen 29 mg/dL (7-17); Calcium 9.2 mg/dL (8.4-10.2); Carbon Dioxide 18 mmol/L (22-30); Chloride 117 mmol/L (98-107); Glucose 108 mg/dL (74-99); Non-African American GFR(CKD) 87 (>60 ml/min/1.73 sqM); Sodium 146 mmol/L (137-145)
--- NOTE | 2024-08-21 22:02 | P.CONS ---
History of Present Illness - Reason for Consult Consult date: 08/21/24 UTI Requesting physician: Jones Damon - Chief Complaint Mental status changes x 1 day - History of Present Illness Patient is a 39-year-old female with a past medical history significant for reflux encephalopathy epilepsy recurrent UTI did have a urostomy patient was brought to the hospital concerning for mental status changes that apparently has been going on for a day or 2 before the patient has been brought to the hospital with initial presentation to [facility] with initial workup was negative did have a positive UA with concerning for symptomatic UTI patient was transferred to [facility] on presentation this facility patient has been afebrile and no fever have been recorded subsequently patient was not tachycardic hypotensive or hypoxic she did have white count 4.5 with a left shift creatinine has been normal urine has been positive urine drug screen was positive for opiates and barbiturates urine and blood culture which are currently pending infectious was consulted for UTI last urine culture in the system is from 01/06/2024 that was ESBL E. coli and the patient has been empirically started on meropenem most information has been obtained from review the chart patient herself is not good historian she did respond to her name and nonspecifically denies any chest pain shortness of breath or cough no vomiting or diarrhea Review of Systems Positive points has been mentioned in HPI complete review could not be obtained because of his underlying mental status Past Medical History Past Medical History: Fibromyalgia, GERD/Reflux, Pneumonia, Seizure Disorder Additional Past Medical History / Comment(s): has seizures on a daily basis one or more a day, cHRONIC NECK/BACK PAIN, N/T FINGERS AND TOES, RAYNAUDS SYN. MENIERE'S,tinnitus, past uterine prolpase(sx) IBS, MUSCLE WEAKNESS, USES WALKER OR W/C History of Any Multi-Drug Resistant Organisms: ESBL, MRSA Year Discovered:: 01/06/24 - ESBL; 08/18/22 - MRSA MDRO Source:: URINE - ESBL; Urine - MRSA Past Surgical History: Bariatric Surgery, Cholecystectomy, Hysterectomy Additional Past Surgical History / Comment(s): EYE SX (MUSCLES), radha en y 2012 Past Anesthesia/Blood Transfusion Reactions: No Reported Reaction Additional Past Anesthesia/Blood Transfusion Reaction / Comm: clausterphobia Past Psychological History: Anxiety, Depression Smoking Status: Unknown if ever smoked Past Alcohol Use History: Unable to Obtain Past Drug Use History: Unable to Obtain, Marijuana - Past Family History Mother Family Medical History: Cancer Additional Family Medical History / Comment(s): TONGUE Father Family Medical History: Hypertension Medications and Allergies Home Medications Medication Instructions Recorded Confirmed Type Gabapentin [Neurontin] 1,200 mg PO TID 12/25/17 08/20/24 History QUEtiapine FUMARATE 50 mg PO HS 11/25/19 08/20/24 History Zolpidem Tartrate [Ambien Cr] 12.5 mg PO HS 11/25/19 08/20/24 History Fludrocortisone [Florinef] 0.1 mg PO BID 07/19/21 08/20/24 History Famotidine 40 mg PO HS 01/05/24 08/20/24 History Oxybutynin Chloride [oxyBUTYnin 10 mg PO DAILY 01/05/24 08/20/24 History chloride ER] Pyridoxine [Vitamin B-6] 50 mg PO DAILY 01/05/24 08/20/24 History Thiamine [Vitamin B-1] 100 mg PO DAILY 01/05/24 08/20/24 History Topiramate [Topamax] 50 mg PO TID 01/05/24 08/20/24 History Baclofen [Lioresal] 20 mg PO TID 08/20/24 08/20/24 History Cranberry/Vitamin C 60mg/250mg 1 tab PO DAILY 08/20/24 08/20/24 History HYDROcodone/APAP 7.5-325MG [[place] 1 tab PO Q6H PRN 08/20/24 08/20/24 History 7.5-325] Lactulose 10 gm PO TID PRN 08/20/24 08/20/24 History Multivit-Min/Iron/Folic/Lutein 1 tab PO DAILY 08/20/24 08/20/24 History [Centrum Silver Women Tablet] Phenytoin Sodium Extended 100 mg PO TID 08/20/24 08/20/24 History [Dilantin] Sodium Bicarbonate Tab 650 mg PO BID 08/20/24 08/20/24 History Venlafaxine HCl [Effexor] 75 mg PO TID 08/20/24 08/20/24 History allopurinoL [Zyloprim] 100 mg PO DAILY 08/20/24 08/20/24 History busPIRone HCl [Buspar] 5 mg PO TID 08/20/24 08/20/24 History Allergies Allergy/AdvReac Type Severity Reaction Status Date / Time levetiracetam [From [facility]] Allergy Rash/Hives Verified 08/20/24 21:03 Penicillins Allergy "STOPPED Verified 08/20/24 21:03 BREATHING" NSAIDS (Non-Steroidal AdvReac "MAY CAUSE Verified 08/20/24 21:03 Anti-Inflamma ULCERS R/T BARIATRIC SX" Physical Exam Vitals: Vital Signs Temp Pulse Resp BP Pulse Ox 08/21/24 10:28 87 17 104/82 100 08/21/24 08:29 98.9 F 95 18 89/75 99 08/21/24 05:40 91 16 112/72 95 08/21/24 03:38 98.4 F 88 16 113/81 100 08/21/24 01:00 102 H 16 112/90 95 08/20/24 23:07 98.4 F 94 16 115/89 99 08/20/24 20:16 104 H 18 123/91 97 08/20/24 18:31 100 18 111/87 96 08/20/24 16:29 98.5 F 87 16 116/87 97 Intake and Output 08/20/24 08/21/24 08/21/24 22:59 06:59 14:59 Other: Weight 52.163 kg GENERAL DESCRIPTION: Middle-age female lying in bed, no distress. No tachypnea or accessory muscle of respiration use. HEENT: Shows Pallor , no scleral icterus. Oral mucous membrane is dry. NECK: Trachea central, no thyromegaly. LUNGS: Unlabored breathing. Clear to auscultation anteriorly. No wheeze or crackle. HEART: S1, S2, regular rate and rhythm. No loud murmur ABDOMEN: Soft, no tenderness EXTREMITIES: No edema of feet. SKIN: No rash, no masses palpable. NEUROLOGICAL: The patient is awake, mood and affect normal. Results CBC & Chem 7: 08/23/24 09:55 08/23/24 09:55 Labs: Abnormal Lab Results - Last 24 Hours (Table) 08/20/24 08/20/24 08/20/24 Range/Units 17:30 17:30 18:40 WBC 12.5 H (3.8-10.6) k/uL MCHC 30.2 L (31.0-37.0) g/dL RDW 16.2 H (11.5-15.5) % Neutrophils # 11.0 H (1.3-7.7) k/uL Sodium 150 H (137-145) mmol/L Chloride 118 H (98-107) mmol/L Carbon Dioxide 15 L (22-30) mmol/L BUN 30 H (7-17) mg/dL Glucose 119 H (74-99) mg/dL Alkaline Phosphatase 174 H (38-126) U/L Urine Appearance Cloudy H (Clear) Urine Protein 2+ H (Negative) Urine Blood Trace H (Negative) Urine Nitrite Positive H (Negative) Ur Leukocyte Esterase Large H (Negative) Urine RBC 9 H (0-5) /hpf Urine WBC 45 H (0-5) /hpf Calcium Oxalate Crystal Occasional H (None) /hpf Urine Bacteria Rare H (None) /hpf Urine Mucus Rare H (None) /hpf Urine Opiates Screen Detected H (NotDetected) Ur Barbiturates Screen Detected H (NotDetected) 08/21/24 08/21/24 08/21/24 Range/Units 02:20 07:54 07:54 WBC 11.1 H (3.8-10.6) k/uL MCHC 29.9 L (31.0-37.0) g/dL RDW 16.4 H (11.5-15.5) % Neutrophils # 9.5 H (1.3-7.7) k/uL Sodium 153 H 153 H (137-145) mmol/L Chloride 121 H 123 H (98-107) mmol/L Carbon Dioxide 18 L 20 L (22-30) mmol/L BUN 32 H 32 H (7-17) mg/dL Glucose 129 H 128 H (74-99) mg/dL Alkaline Phosphatase 156 H (38-126) U/L Urine Appearance (Clear) Urine Protein (Negative) Urine Blood (Negative) Urine Nitrite (Negative) Ur Leukocyte Esterase (Negative) Urine RBC (0-5) /hpf Urine WBC (0-5) /hpf Calcium Oxalate Crystal (None) /hpf Urine Bacteria (None) /hpf Urine Mucus (None) /hpf Urine Opiates Screen (NotDetected) Ur Barbiturates Screen (NotDetected) Assessment and Plan (1) History of ESBL E. coli infection Current Visit: Yes Status: Acute Code(s): Z86.19 - PERSONAL HISTORY OF OTHER INFECTIOUS AND PARASITIC DISEASES SNOMED Code(s): 790059869 (2) UTI (urinary tract infection) Current Visit: Yes Status: Acute Code(s): N39.0 - URINARY TRACT INFECTION, SITE NOT SPECIFIED SNOMED Code(s): 43510816 (3) Penicillin allergy Current Visit: No Status: Acute Code(s): Z88.0 - ALLERGY STATUS TO PENICILLIN SNOMED Code(s): 54078557 Plan: 1patient presented to hospital with mental status changes in this patient who did have a positive UA elevated white count concerning for catheter since UTI with the last urine culture in the system is ESBL E. coli will need to cover for resistant gram-negative while waiting for the culture to finalize 2-penicillin allergy that will limit the number of antibiotics safe to use 3-patient will be treated with meropenem while waiting for the culture to finalize We will follow on clinical condition and cultures to further adjust medication if needed Thank you for this consultation we will follow the patient along with you Dictation was produced using [employer] dictation software. please excuse any grammatical, word or spelling errors. Time with Patient: Greater than 30
[2024-08-21] MEDS: FAMOTIDINE 20 MG TAB PO SCH (22:31)
[2024-08-22] MEDS ORDERED: LORazepam 1 MG/0.5 ML VIAL IV PRN ×2 (04:41→04:42)
[2024-08-22 07:15] LABS: Anisocytosis Slight; Basophils % (A) 0 %; Eosinophils # (A) 0.1 k/uL (0-0.7); Eosinophils % (A) 1 %; HCT 33.4 % (34.0-46.0); HGB 10.2 gm/dL (11.4-16.0); Hypochromasia Marked; Lymphocytes # (A) 1.3 k/uL (1.0-4.8); Lymphocytes % (A) 20 %; MCH 29.1 pg (25.0-35.0); MCHC 30.5 g/dL (31.0-37.0); Mean Platelet Volume 7.2; Monocytes # (A) 0.3 k/uL (0-1.0); Monocytes % (A) 5 %; Neutrophils # (A) 4.7 k/uL (1.3-7.7); Neutrophils % (A) 74 %; Platelet Count 299 k/uL (150-450); RDW 16.3 % (11.5-15.5); WBC 6.4 k/uL (3.8-10.6)
[2024-08-22 07:16] LABS: MCV 95.5 fL (80.0-100.0)
[2024-08-22 07:19] LABS: African American GFR (CKD) >90 (>60 ml/min/1.73 sqM); Anion Gap 8 mmol/L; Blood Urea Nitrogen 24 mg/dL (7-17); Calcium 9.2 mg/dL (8.4-10.2); Carbon Dioxide 22 mmol/L (22-30); Chloride 117 mmol/L (98-107); Glucose 91 mg/dL (74-99); Magnesium 1.9 mg/dL (1.6-2.3); Non-African American GFR(CKD) 90 (>60 ml/min/1.73 sqM); Potassium 3.3 mmol/L (3.5-5.1); Sodium 147 mmol/L (137-145)
--- NOTE | 2024-08-22 07:24 | P.CNNES ---
History of Present Illness Consult date: 08/21/24 Requesting physician: Jones Damon Reason for Consult: Altered mental status with current UTI/cold., History of Wernicke's History of Present Illness: Patient is a 39-year-old female with history of multiple nutritional deficiencies, reported history of Wernicke's encephalopathy, was brought to the hospital by ambulance yesterday at 4:25 PM Patient not able to provide any history and family members were not present. As per EMS flow sheet, patient was transferred from [facility]. It was reported the patient came to [place] [facility] with her following 2 day onset of altered mental status, confusion, headache and noncompliance with her medications. CT scans of her head and body 1 or negative. Urinalysis showed she had UTI. She does have a chronic Barnard catheter and has frequent UTIs. She is also tested positive for COVID-19. She required consultation with urologist and neurologist for frequent UTIs and altered mental status. As per EMS report, patient was awake and alert but only oriented to person. Her skin is pink and warm. She had stable vital signs. Heart rhythm showed normal sinus rhythm. During transport patient remained awake and alert. She continues to only be oriented to person. Her blood pressure was 126/90, pulse rate 90, and situation and 7% and respirations 16. I spoke to patient's on the phone, who mentioned that patient's altered mental status started on Sunday, which is yesterday. She did not want to take her medication, did not want to eat or drink. She usually holds conversation and talks a lot, but then she stopped talking therefore he got concerned and brought her to [facility]. He mentions that patient is completely wheelchair bound. At home she normally sits up in bed but does not walk and has no use of the legs. I informed her that at present she is speaking only one to 2 words, which he states "it is far from normal". She lives at home with her . He mentions that patient has been taking medications regu larly. She used to be on Topamax, but her new neurologist Dr. Jo stopped Topamax and put her on Dilantin about couple months ago. He states that patient gets "staring off spells" in which she zones out and comes back. Last one was on last Sunday and it happens every few days. Patient's blood test shows WBC 12.5 hemoglobin 13.2, platelets are normal. PT/PTT normal. Sodium 150, potassium 4.1, BUN 30, creatinine 0.88. Hepatic panel is normal. UA shows positive nitrite, large amount of leukocyte Estrace 45 WBCs and rare bacteria. Urine drug screen positive for opiates and barbiturates. The Depakote level negative. TSH is normal. CT head performed at [facility] was reviewed. It shows no acute process. EKG showed sinus rhythm. Chest x-ray showed no acute cardiopulmonary process. Patient has been seen by ID, and started on meropenem. Patient has history of seizure disorder and has been seen by multiple neurologists over the years. Patient has been to [facility] epilepsy clinic. She has intractable seizures and used to be on multiple anticonvulsant medication. Current medications include Seroquel 50 MiniMed bedtime, gabapentin 1200 mg 3 times a day Ambien 12.5 mg, Florinef, B6, oxybutynin, Topamax 50 mg 3 times a day, thiamine, Effexor, lactulose, BuSpar, baclofen 20 mg 3 times a day, Dilantin 100 mg 3 times a day. On previous records she was taking Trileptal 300 mg 4 times a day, Vimpat 100 mg every morning, Klonopin 0.5 mg 3 times daily. However she is not on these medications anymore. Patient's informed me that they have been for last 17 years. He informed me that patient had gastric bypass surgery in 2013, after which she started having problem with walking. She started with a cane, then walker. In October 2019 she was hospitalized and after that she could not walk, and has been wheelchair-bound since then. Patient has been to [facility] and was diagnosed with nutritional deficiency, Wernicke's encephalopathy. She did have MRI performed at [facility] and workup has been performed. There was no diagnosis of MS. Patient otherwise talks normally, holds conversation. She does have seizure disorder since 2007. She currently follows up with Dr. Jo. Patient used to be on Vimpat and Trileptal, but they have been discontinued and then she was placed on on Topamax 50 mg 3 times daily. About 2 months ago, Topamax was discontinued and patient placed on Dilantin. She gets seizures once in a while. Patient's admits that she has history of alcoholism when she was in her 20s. She has been sober since last 12 years. Review of Systems ROS unobtainable: due to mental status Past Medical History Past Medical History: Fibromyalgia, GERD/Reflux, Pneumonia, Seizure Disorder Additional Past Medical History / Comment(s): has seizures on a daily basis one or more a day, cHRONIC NECK/BACK PAIN, N/T FINGERS AND TOES, RAYNAUDS SYN. MENIERE'S,tinnitus, past uterine prolpase(sx) IBS, MUSCLE WEAKNESS, USES WALKER OR W/C History of Any Multi-Drug Resistant Organisms: ESBL, MRSA Date of last positivie culture/infection: 01/06/24 - ESBL; 08/18/22 - MRSA MDRO Source:: URINE - ESBL; Urine - MRSA Past Surgical History: Bariatric Surgery, Cholecystectomy, Hysterectomy Additional Past Surgical History / Comment(s): EYE SX (MUSCLES), radha en y 2012 Past Anesthesia/Blood Transfusion Reactions: No Reported Reaction Additional Past Anesthesia/Blood Transfusion Reaction / Comment(s): clausterphobia Past Psychological History: Anxiety, Depression Smoking Status: Unknown if ever smoked Past Alcohol Use History: Unable to Obtain Past Drug Use History: Unable to Obtain, Marijuana - Past Family History Mother Family Medical History: Cancer Additional Family Medical History / Comment(s): TONGUE Father Family Medical History: Hypertension Medications and Allergies Home Medications Medication Instructions Recorded Confirmed Type Gabapentin [Neurontin] 1,200 mg PO TID 12/25/17 08/20/24 History QUEtiapine FUMARATE 50 mg PO HS 11/25/19 08/20/24 History Zolpidem Tartrate [Ambien Cr] 12.5 mg PO HS 11/25/19 08/20/24 History Fludrocortisone [Florinef] 0.1 mg PO BID 07/19/21 08/20/24 History Famotidine 40 mg PO HS 01/05/24 08/20/24 History Oxybutynin Chloride [oxyBUTYnin 10 mg PO DAILY 01/05/24 08/20/24 History chloride ER] Pyridoxine [Vitamin B-6] 50 mg PO DAILY 01/05/24 08/20/24 History Thiamine [Vitamin B-1] 100 mg PO DAILY 01/05/24 08/20/24 History Topiramate [Topamax] 50 mg PO TID 01/05/24 08/20/24 History Baclofen [Lioresal] 20 mg PO TID 08/20/24 08/20/24 History Cranberry/Vitamin C 60mg/250mg 1 tab PO DAILY 08/20/24 08/20/24 History HYDROcodone/APAP 7.5-325MG [[place] 1 tab PO Q6H PRN 08/20/24 08/20/24 History 7.5-325] Lactulose 10 gm PO TID PRN 08/20/24 08/20/24 History Multivit-Min/Iron/Folic/Lutein 1 tab PO DAILY 08/20/24 08/20/24 History [Centrum Silver Women Tablet] Phenytoin Sodium Extended 100 mg PO TID 08/20/24 08/20/24 History [Dilantin] Sodium Bicarbonate Tab 650 mg PO BID 08/20/24 08/20/24 History Venlafaxine HCl [Effexor] 75 mg PO TID 08/20/24 08/20/24 History allopurinoL [Zyloprim] 100 mg PO DAILY 08/20/24 08/20/24 History busPIRone HCl [Buspar] 5 mg PO TID 08/20/24 08/20/24 History Allergies Allergy/AdvReac Type Severity Reaction Status Date / Time levetiracetam [From [facility]] Allergy Rash/Hives Verified 08/20/24 21:03 Penicillins Allergy "STOPPED Verified 08/20/24 21:03 BREATHING" NSAIDS (Non-Steroidal AdvReac "MAY CAUSE Verified 08/20/24 21:03 Anti-Inflamma ULCERS R/T BARIATRIC SX" Physical Examination - Vital Signs Vital Signs: Vital Signs Temp Pulse Resp BP Pulse Ox 08/21/24 13:30 98.0 F 93 16 115/84 98 08/21/24 10:28 87 17 104/82 100 08/21/24 08:29 98.9 F 95 18 89/75 99 08/21/24 05:40 91 16 112/72 95 08/21/24 03:38 98.4 F 88 16 113/81 100 08/21/24 01:00 102 H 16 112/90 95 08/20/24 23:07 98.4 F 94 16 115/89 99 08/20/24 20:16 104 H 18 123/91 97 08/20/24 18:31 100 18 111/87 96 08/20/24 16:29 98.5 F 87 16 116/87 97 Intake and Output 08/20/24 08/21/24 08/21/24 22:59 06:59 14:59 Other: Weight 52.163 kg Patient is a young female, somewhat cachectic, appears older than her stated age. Patient is alert awake, but oriented only to herself. She only can tell her name Kamala. Could not tell current month or year, or the state or city she is in. She admits to having some headache. Cannot tell how old she. Limited speech was clear. However patient is mostly nonverbal. Attention, concentration and fund of knowledge are all severely limited. On cranial nerve examination, pupils are equal, round and reacting to light, visual massey cannot be tested as patient would not cooperate. Extraocular muscles are intact. Face is symmetric, tongue protrudes to the midlinelower cranial nerves could not be tested because patient would not cooperate. Her hearing appears to be somewhat diminished. On muscle strength testing, patient appears to have normal strength of the biceps, triceps, the car worker, and the ankles and the toes bilaterally. Deep tendon reflexes are symmetrbut very hypoactive and plantars are possibly downgoing. Sensory to touch could not be tested. She does withdraw to painful stimuli equally. Cerebellar function could not be tested and patient would not cooperate. Tone is normal and bulk of musclesoverall decreased. Patient appears somewhat cachectic. Gait deferred.. On general examination, there is no carotid bruit or murmur, S1-S2 audible. Chest is clear on consultation. Abdomen is soft nontender. No organomegaly, bowel sounds present. Peripheral pulses are present. No peripheral edema. Results - Laboratory Findings CBC and BMP: 08/22/24 06:28 08/22/24 06:28 Abnormal Lab Findings: Abnormal Labs 08/20/24 08/20/24 08/20/24 17:30 17:30 18:40 WBC 12.5 H MCHC 30.2 L RDW 16.2 H Neutrophils # 11.0 H Sodium 150 H Chloride 118 H Carbon Dioxide 15 L BUN 30 H Glucose 119 H Alkaline Phosphatase 174 H Urine Appearance Cloudy H Urine Protein 2+ H Urine Blood Trace H Urine Nitrite Positive H Ur Leukocyte Esterase Large H Urine RBC 9 H Urine WBC 45 H Calcium Oxalate Crystal Occasional H Urine Bacteria Rare H Urine Mucus Rare H Urine Opiates Screen Detected H Ur Barbiturates Screen Detected H 08/21/24 08/21/24 08/21/24 02:20 07:54 07:54 WBC 11.1 H MCHC 29.9 L RDW 16.4 H Neutrophils # 9.5 H Sodium 153 H 153 H Chloride 121 H 123 H Carbon Dioxide 18 L 20 L BUN 32 H 32 H Glucose 129 H 128 H Alkaline Phosphatase 156 H Urine Appearance Urine Protein Urine Blood Urine Nitrite Ur Leukocyte Esterase Urine RBC Urine WBC Calcium Oxalate Crystal Urine Bacteria Urine Mucus Urine Opiates Screen Ur Barbiturates Screen Assessment and Plan Assessment: * Altered mental status, likely due to metabolic encephalopathy. Reasons multifactorial as mentioned below. * Acute UTI * Acute COVID infection. * History of recurrent UTI. * Seizure disorder * Hyponatremia * Reported history of Wernicke's encephalopathy * Presence of suprapubic catheter * Malnutrition Plan: * Patient has presented with altered mental status, likely due to metabolic encephalopathy. Patient has acute UTI and COVID infection confirmed at [facility] facility. She was diagnosed with Wernicke's encephalopathy in the past. * No report of seizures. Patient will be continued on Dilantin 100 mg 3 times a day. Patient was placed on Topamax 50 mg 3 times a day, as it is mentioned in her home medication list. However after discussing with patient's , it appears patient is not taking Topamax anymore, as her neurologist Dr. Jo has switched from Topamax to Dilantin about 2 months ago. We will stop Topamax. * Dilantin level is subtherapeutic < 3.0. Some concern about noncompliance with the medication. * Patient has been seen by ID and patient currently on meropenem for UTI. * Continue thiamine, and vitamin B6. * Consider EEG, based upon report from patient's . However no clinical evidence of status at this time. * Neurology will follow. Thank you for the consult.
[2024-08-22] MEDS: PHENYTOIN SODIUM INJ 500 MG in SODIUM CHLORIDE 0.9% 50 ML IVPB STA (09:19)
[2024-08-22] MEDS: POTASSIUM CHLORIDE ER 20 MEQ TAB.ER PO STA (09:25)
[2024-08-22] MEDS: ZINC OXIDE PASTE (Z-GUARD) 1 APPLIC TOPICAL PRN (10:56)
--- NOTE | 2024-08-22 14:52 | P.PN ---
Subjective Progress Note Date: 08/22/24 Hospital course: Patient is a pleasant 39-year-old female past medical history of chronic debility wheelchair bound, GERD, Wernicke's encephalopathy, Mnire's disease, Raynaud's, recurrent UTIs, epilepsy, and chronic indwelling suprapubic catheter. She presented to our facility as a transfer from [facility] on 08/20/2024 secondary to altered mental status secondary to hyponatremia with sodium of 150, UTI, and COVID-19 infection. Physical exam: Patient seen evaluated bedside this morning. She is resting comfortably. Currently denies having chronic pain but denies any additional complaints at this time. Patient updated on plan of care and all questions answered at this time. Vital signs reviewed and stable. General: Nontoxic, no distress and appears older than stated age. Frail and emaciated, chronically ill appearing. Derm: Skin warm and dry, normal coloration for ethnicity. Head: Atraumatic, normocephalic and symmetric. Eyes: EOM's intact, no lid lag, and anicteric sclera Mouth: no lip lesions, mucus membranes moist Cardiovascular: regular rate and rhythm with normal S1S2, no murmur, positive posterior tibial pulses bilaterally, and cap refill < 2 seconds. Lungs: Respirations even, regular, and unlabored on room air. Lungs CTA bilaterally, no rhonchi, no rales, no wheezing, and no accessory muscle usage. Abdominal: soft, nontender to palpation, no guarding, no appreciable organ omegaly. Suprapubic catheter in place Ext: No gross muscle atrophy, no edema, no contractures. Movement and sensation intact Neuro: Speech clear, face symmetrical and CN II-XII grossly intact with no noted focal neuro deficits Psych: Alert and oriented to person, place, and situation. Confused to time. Appropriate and pleasant affect. Assessment and Plan of Care: Acute metabolic encephalopathy, likely infectious resulting from acute UTI and COVID infection UTI, with chronic indwelling suprapubic catheter present on admission due to neurogenic bladder History of previous MRSA and ESBL infections High anion gap metabolic acidosis Wernicke's encephalopathy -Thiamine ordered, 500mg IV q8h for 1 more day, then 250mg IV daily for 5 days, then weaning it down to 100mg IV daily -Blood and urine culture pending -Indwelling suprapubic catheter present on admission, also has a urostomy -Continue meropenem 1 g IVPB every 8 hours pending final culture and sensitivity report. -Neurology following, reviewed documentation and chart -Infectious disease following, reviewed documentation and chart Hypernatremia, hypovolemic, likely due to poor intake -Improving from 153 down to 147 this morning -Cortisol level was elevated at 59.8, however patient is on daily Florinef -Continue fludrocortisone 0.1 mg twice daily -0.9% normal saline infusion discontinued and patient started on D5.45 at 75 cc/h. Continue close monitoring of sodium levels with repeat morning BMP. Pre-renal azotemia, due to dehydration -Initial BUN 30, creatinine 0.88 with BUN of 24 and creatinine of 0.83 with GFR of 90. -Monitor BMP Epilepsy -Continue home medication regimen with Topamax 50 mg 3 times daily and Dilantin 100 mg 3 times daily. -Follow-up on phenytoin level once resulted. GERD -Continue Pepcid 40 mg nightly. Fibromyalgia Anxiety/depression Wernicke's encephalopathy secondary to longstanding history of alcohol abuse -Continue home medication regimen with BuSpar 5 mg 3 times daily, Seroquel 50 mg nightly, and Effexor 75 mg 3 times daily. Data and imaging reviewed: -Morning labs reviewed. CBC showing normocytic anemia with hemoglobin of 10.2. BMP showing sodium 147, potassium 3.3, chloride 117, BUN of 24. Blood glucose 91. Magnesium 1.9. -Vital signs reviewed. Blood pressure 105/79, heart rate 82, respiratory rate 18, temp 98.3 F, and SpO2 of 96% on room air.. CODE STATUS: Full code DVT prophylaxis: Lovenox Anticipated discharge date: Pending clinical course Anticipated discharge place: Pending clinical course Patient was seen independently by Nurse Pracitioner. This document was prepared using [employer] dictation software. Please allow for errors in electrician research, while rare they do occur. Albert Dong NP rendered care for this patient independently, reviewed the findings and plan as documented in the note above and agree with plan. I did n ot physically speak with or examine the patient on this date. Objective - Vital Signs Vital signs: Vital Signs Temp 98.2 F 08/22/24 02:53 Pulse 88 08/22/24 02:53 Resp 18 08/22/24 02:53 BP 97/68 08/22/24 02:53 Pulse Ox 100 08/22/24 02:53 FiO2 Intake & Output 08/21/24 08/22/24 08/22/24 18:59 06:59 18:59 Intake Total 20 Output Total 400 Balance -380 Weight 52.163 kg 49 kg Intake: IV 20 Invasive Line 4 20 Output: Urine 400 Other: Voiding Method Diaper Incontinent - Labs CBC & Chem 7: 08/22/24 06:28 08/22/24 06:28 Labs: Abnormal Lab Results - Last 24 Hours (Table) 08/21/24 08/21/24 08/21/24 Range/Units 07:54 15:24 17:21 RBC (3.80-5.40) m/uL Hgb (11.4-16.0) gm/dL Hct (34.0-46.0) % MCV 102.2 H D (80.0-100.0) fL MCHC 28.4 L (31.0-37.0) g/dL RDW 16.5 H (11.5-15.5) % Sodium 146 H (137-145) mmol/L Potassium (3.5-5.1) mmol/L Chloride 117 H (98-107) mmol/L Carbon Dioxide 18 L (22-30) mmol/L BUN 29 H (7-17) mg/dL Glucose 108 H (74-99) mg/dL Osmolality 331 H (275-295) mOsm/kg Cortisol 59.8 H (3.1-22.4) UG/DL 08/22/24 08/22/24 Range/Units 06:28 06:28 RBC 3.50 L (3.80-5.40) m/uL Hgb 10.2 L (11.4-16.0) gm/dL Hct 33.4 L (34.0-46.0) % MCV (80.0-100.0) fL MCHC 30.5 L (31.0-37.0) g/dL RDW 16.3 H (11.5-15.5) % Sodium 147 H (137-145) mmol/L Potassium 3.3 L (3.5-5.1) mmol/L Chloride 117 H (98-107) mmol/L Carbon Dioxide (22-30) mmol/L BUN 24 H (7-17) mg/dL Glucose (74-99) mg/dL Osmolality (275-295) mOsm/kg Cortisol (3.1-22.4) UG/DL Microbiology - Last 24 Hours (Table) 08/20/24 17:30 Blood Culture - Preliminary Blood
[2024-08-22] MEDS: DEXTROSE 5%-0.45% NACL 1,000 ML IV SCH (15:03)
--- NOTE | 2024-08-22 15:09 | P.PN ---
Subjective Progress Note Date: 08/22/24 Principal diagnosis: Reason for follow-up is UTI Patient is a 39-year-old female with a past medical history significant for reflux encephalopathy epilepsy recurrent UTI did have a suprapubic catheter patient was brought to the hospital concerning for mental status changes and has been diagnosed with catheter assisted UTI. On today's evaluation that is 08/22/2024, the patient is more awake and alert afebrile, the patient is on room air and breathing comfortably, the Pt denies having any chest pain or cough, the patient denies having any abdominal pain no vomiting or any diarrhea. Patient white count 6.4, creatinine 0.83 cultures currently pending Objective - Vital Signs Vital signs: Vital Signs Temp 98.3 F 08/22/24 08:00 Pulse 96 08/22/24 11:22 Resp 16 08/22/24 11:22 BP 108/68 08/22/24 11:22 Pulse Ox 99 08/22/24 11:22 FiO2 Intake & Output 08/21/24 08/22/24 08/22/24 18:59 06:59 18:59 Intake Total 20 540 Output Total 400 675 Balance -380 -135 Weight 52.163 kg 49 kg Intake: IV 20 Invasive Line 4 20 Oral 540 Output: Urine 400 675 Other: Voiding Method Diaper Ileal Conduit (Right) Incontinent - Exam GENERAL DESCRIPTION: Middle-age female lying in bed in no distress RESPIRATORY SYSTEM: Unlabored breathing , clear to auscultation anteriorly HEART: S1 S2 regular rate and rhythm , ABDOMEN: Soft , no tenderness EXTREMITIES: No edema feet - Labs CBC & Chem 7: 08/22/24 06:28 08/22/24 06:28 Labs: Abnormal Lab Results - Last 24 Hours (Table) 08/21/24 08/21/24 08/21/24 Range/Units 07:54 15:24 17:21 RBC (3.80-5.40) m/uL Hgb (11.4-16.0) gm/dL Hct (34.0-46.0) % MCV 102.2 H D (80.0-100.0) fL MCHC 28.4 L (31.0-37.0) g/dL RDW 16.5 H (11.5-15.5) % Sodium 146 H (137-145) mmol/L Potassium (3.5-5.1) mmol/L Chloride 117 H (98-107) mmol/L Carbon Dioxide 18 L (22-30) mmol/L BUN 29 H (7-17) mg/dL Glucose 108 H (74-99) mg/dL Osmolality 331 H (275-295) mOsm/kg Cortisol 59.8 H (3.1-22.4) UG/DL 08/22/24 08/22/24 Range/Units 06:28 06:28 RBC 3.50 L (3.80-5.40) m/uL Hgb 10.2 L (11.4-16.0) gm/dL Hct 33.4 L (34.0-46.0) % MCV (80.0-100.0) fL MCHC 30.5 L (31.0-37.0) g/dL RDW 16.3 H (11.5-15.5) % Sodium 147 H (137-145) mmol/L Potassium 3.3 L (3.5-5.1) mmol/L Chloride 117 H (98-107) mmol/L Carbon Dioxide (22-30) mmol/L BUN 24 H (7-17) mg/dL Glucose (74-99) mg/dL Osmolality (275-295) mOsm/kg Cortisol (3.1-22.4) UG/DL Microbiology - Last 24 Hours (Table) 08/20/24 18:40 Urine Culture - Final Urine,Voided 08/20/24 17:30 Blood Culture - Preliminary Blood Assessment and Plan (1) History of ESBL E. coli infection Current Visit: Yes Status: Acute Code(s): Z86.19 - PERSONAL HISTORY OF OTHER INFECTIOUS AND PARASITIC DISEASES SNOMED Code(s): 960555701 (2) UTI (urinary tract infection) Current Visit: Yes Status: Acute Code(s): N39.0 - URINARY TRACT INFECTION, SITE NOT SPECIFIED SNOMED Code(s): 63331083 (3) Penicillin allergy Current Visit: No Status: Acute Code(s): Z88.0 - ALLERGY STATUS TO PENI CILLIN SNOMED Code(s): 42087637 Plan: 1patient presented to hospital with mental status changes in this patient who did have a positive UA elevated white count concerning for catheter since UTI with the last urine culture in the system is ESBL E. coli will need to cover for resistant gram-negative while waiting for the culture to finalize 2-penicillin allergy that will limit the number of antibiotics safe to use 3-patient seem to have some clinical improvement continue with the meropenem while waiting for the culture to finalize Dictation was produced using [employer] software. please excuse any grammatical, word or spelling errors. Time with Patient: Less than 30
[2024-08-22 16:45] LABS: Appearance,Urine Clear (Clear); Bilirubin,Urine Negative (Negative); Blood,Urine Negative (Negative); Color,Urine Colorless; Glucose,Urine (UA) Negative (Negative); Ketones,Urine Negative (Negative); Leukocyte Esterase,Urine Large (Negative); Nitrite,Urine Negative (Negative); Protein,Urine Trace (Negative); RBC,Urine 4 /hpf (0-5); Specific Gravity,Urine 1.006 (1.001-1.035); Urobilinogen,Urine <2.0 mg/dL (<2.0); WBC,Urine 17 /hpf (0-5)
[2024-08-22] MEDS: ACETAMINOPHEN TAB 325 MG TAB PO PRN (20:20)
[2024-08-22] MEDS: LORazepam 1 MG/0.5 ML VIAL IV PRN (23:25)
--- NOTE | 2024-08-23 00:20 | EEG ---
ELECTROENCEPHALOGRAM REPORT PREAMBLE: This is a 39-year-old female, presented with altered mental status. The patient has history of seizure disorder. EEG FINDINGS: This is a 21-channel digital EEG recorded with video component, utilizing 10/20 international system with referential and bipolar montages. Background consists of moderately well-developed and regulated, moderate to high amplitude activity in mixed frequencies of 8 to 9 hertz alpha with some 4 to 6 hertz theta and rare delta activity in bihemispheric region. Background does not seem to be reactive to eye opening or closing. Different stages of sleep were not seen. No focal or generalized epileptiform activity was seen. IMPRESSION: This is an abnormal EEG due to background slowing, suggestive of mild encephalopathy. No focal, lateralized, or epileptiform activity was seen. MMJUANCARLOSL / SALBADORN: [id number] /
--- NOTE | 2024-08-23 08:49 | P.PN ---
Subjective Progress Note Date: 08/22/24 Patient was seen for follow-up. Patient is laying comfortably in the bed. Patient is much more alert and awake, responding appropriately. Patient offers no complaints. Objective - Vital Signs Vital signs: Vital Signs Temp 98.3 F 08/22/24 08:00 Pulse 96 08/22/24 11:22 Resp 16 08/22/24 11:22 BP 108/68 08/22/24 11:22 Pulse Ox 99 08/22/24 11:22 FiO2 Intake & Output 08/21/24 08/22/24 08/22/24 18:59 06:59 18:59 Intake Total 20 540 Output Total 400 675 Balance -380 -135 Weight 52.163 kg 49 kg Intake: IV 20 Invasive Line 4 20 Oral 540 Output: Urine 400 675 Other: Voiding Method Diaper Ileal Conduit (Right) Incontinent - Exam Patient is alert and awake. Mentation much improved. She knows that she is in [facility] and it is August 2024. Her speech is much improved. She is starting to speak. Her pupils are equal, round and reacting, visual massey appears full. Face is symmetric. Muscle strength appears normal in the arms. In the lower limbs, hip flexion is at least 4+5- bilaterally. Her ankle dorsiflexion appears to be weak with some heel cord shortening. Much decreased range of motion for ankle dorsiflexion and she give some resistance does not appear completely normal. Rest of the examination is unchanged. - Labs CBC & Chem 7: 08/22/24 06:28 08/22/24 06:28 Labs: Abnormal Lab Results - Last 24 Hours (Table) 08/21/24 08/21/24 08/21/24 Range/Units 07:54 15:24 17:21 RBC (3.80-5.40) m/uL Hgb (11.4-16.0) gm/dL Hct (34.0-46.0) % MCV 102.2 H D (80.0-100.0) fL MCHC 28.4 L (31.0-37.0) g/dL RDW 16.5 H (11.5-15.5) % Sodium 146 H (137-145) mmol/L Potassium (3.5-5.1) mmol/L Chloride 117 H (98-107) mmol/L Carbon Dioxide 18 L (22-30) mmol/L BUN 29 H (7-17) mg/dL Glucose 108 H (74-99) mg/dL Osmolality 331 H (275-295) mOsm/kg Cortisol 59.8 H (3.1-22.4) UG/DL 08/22/24 08/22/24 Range/Units 06:28 06:28 RBC 3.50 L (3.80-5.40) m/uL Hgb 10.2 L (11.4-16.0) gm/dL Hct 33.4 L (34.0-46.0) % MCV (80.0-100.0) fL MCHC 30.5 L (31.0-37.0) g/dL RDW 16.3 H (11.5-15.5) % Sodium 147 H (137-145) mmol/L Potassium 3.3 L (3.5-5.1) mmol/L Chloride 117 H (98-107) mmol/L Carbon Dioxide (22-30) mmol/L BUN 24 H (7-17) mg/dL Glucose (74-99) mg/dL Osmolality (275-295) mOsm/kg Cortisol (3.1-22.4) UG/DL Microbiology - Last 24 Hours (Table) 08/20/24 18:40 Urine Culture - Final Urine,Voided 08/20/24 17:30 Blood Culture - Preliminary Blood Assessment and Plan Assessment: * Altered mental status, likely due to metabolic encephalopathy. Reasons multifactorial as mentioned below. * Acute UTI * Acute COVID infection. * History of recurrent UTI. * Seizure disorder * Hyponatremia * Reported history of Wernicke's encephalopathy * Presence of suprapubic catheter * Malnutrition Plan: * Patient has presented with altered mental status, likely due to metabolic encephalopathy. Patient has acute UTI and COVID infection confirmed at outside facility. She was diagnosed with Wernicke's encephalopathy in the past. * No report of seizures. Patient will be continued on Dilantin 100 mg 3 times a day. Her neurologist Dr. Jo has switched from Topamax to Dilantin about 2 months ago. Continue Dilantin 100 mg 3 times a day. * Dilantin level is subtherapeutic < 3.0. We will give an extra bolus of Dilantin 500 mg IV 1 dose. * EEG was performed, which was abnormal due to background slowing, suggestive of mild encephalopathy. No focal, lateralized or epileptiform activity was seen. * Patient has been seen by ID and patient currently on meropenem for UTI. * Continue thiamine, and vitamin B6. * Patient is doing better. * Neurologically clear for discharge, once medically cleared. * Dr. Robi Morris to starting on the service from tomorrow morning.
[2024-08-23 10:18] LABS: Anisocytosis Slight; HCT 34.7 % (34.0-46.0); HGB 10.6 gm/dL (11.4-16.0); Hypochromasia Moderate; MCH 28.9 pg (25.0-35.0); MCHC 30.6 g/dL (31.0-37.0); MCV 94.6 fL (80.0-100.0); Mean Platelet Volume 6.9; Platelet Count 279 k/uL (150-450); RBC 3.67 m/uL (3.80-5.40); RDW 16.4 % (11.5-15.5); WBC 6.9 k/uL (3.8-10.6)
[2024-08-23 10:48] LABS: ALT 40 U/L (4-34); AST 37 U/L (14-36); African American GFR (CKD) >90 (>60 ml/min/1.73 sqM); Albumin 4.1 g/dL (3.5-5.0); Alkaline Phosphatase 137 U/L (38-126); Anion Gap 11 mmol/L; Blood Urea Nitrogen 12 mg/dL (7-17); Calcium 8.9 mg/dL (8.4-10.2); Carbon Dioxide 18 mmol/L (22-30); Chloride 113 mmol/L (98-107); Glucose 99 mg/dL (74-99); Magnesium 1.8 mg/dL (1.6-2.3); Non-African American GFR(CKD) >90 (>60 ml/min/1.73 sqM); Potassium 3.1 mmol/L (3.5-5.1); Sodium 142 mmol/L (137-145); Total Bilirubin 0.4 mg/dL (0.2-1.3); Total Protein 6.7 g/dL (6.3-8.2)
[2024-08-23] MEDS: LORazepam 1 MG/0.5 ML VIAL IV PRN (14:30)
--- NOTE | 2024-08-23 14:47 | P.PN ---
Subjective Progress Note Date: 08/23/24 Principal diagnosis: Reason for follow-up is UTI Patient is a 39-year-old female with a past medical history significant for reflux encephalopathy epilepsy recurrent UTI did have a urostomy, patient was brought to the hospital concerning for mental status changes and has been diagnosed with UTI On today's evaluation that is 08/23/2024, patient did not have any fever and denies any chills, patient is breathing comfortably on room air, patient with no chest pain or cough patient did not have any abdominal pain nausea vomiting or any loose stools. Patient white count 6.9, creatinine 0.6 6 repeat UA still positive initial culture negative Objective - Vital Signs Vital signs: Vital Signs Temp 97.1 F L 08/23/24 07:58 Pulse 84 08/23/24 14:29 Resp 18 08/23/24 14:29 BP 154/83 08/23/24 14:29 Pulse Ox 95 08/23/24 14:29 FiO2 Intake & Output 08/22/24 08/23/24 08/23/24 18:59 06:59 18:59 Intake Total 1316 Output Total 1475 3100 1625 Balance -159 3100 -1629 Weight 51 kg Intake: Oral 1316 Output: Urine 1475 3100 1625 Other: Voiding Method Ileal Conduit (Right) Ileal Conduit (Right) Ileal Conduit (Right) - Exam GENERAL DESCRIPTION: Middle-age female lying in bed in no distress RESPIRATORY SYSTEM: Unlabored breathing , clear to auscultation anteriorly HEART: S1 S2 regular rate and rhythm , ABDOMEN: Soft , no tenderness EXTREMITIES: No edema feet - Labs CBC & Chem 7: 08/23/24 09:55 08/23/24 09:55 Labs: Abnormal Lab Results - Last 24 Hours (Table) 08/22/24 08/23/24 08/23/24 Range/Units 16:23 09:55 09:55 RBC 3.67 L (3.80-5.40) m/uL Hgb 10.6 L (11.4-16.0) gm/dL MCHC 30.6 L (31.0-37.0) g/dL RDW 16.4 H (11.5-15.5) % Potassium 3.1 L (3.5-5.1) mmol/L Chloride 113 H (98-107) mmol/L Carbon Dioxide 18 L (22-30) mmol/L AST 37 H (14-36) U/L ALT 40 H (4-34) U/L Alkaline Phosphatase 137 H (38-126) U/L Urine Protein Trace H (Negative) Ur Leukocyte Esterase Large H (Negative) Urine WBC 17 H (0-5) /hpf Microbiology - Last 24 Hours (Table) 08/20/24 17:30 Blood Culture - Preliminary Blood 08/20/24 18:40 Urine Culture - Final Urine,Voided Assessment and Plan (1) History of ESBL E. coli infection Current Visit: Yes Status: Acute Code(s): Z86.19 - PERSONAL HISTORY OF OTHER INFECTIOUS AND PARASITIC DISEASES SNOMED Code(s): 977790106 (2) UTI (urinary tract infection) Current Visit: Yes Status: Acute Code(s): N39.0 - URINARY TRACT INFECTION, SITE NOT SPECIFIED SNOMED Code(s): 97436488 (3) Penicillin allergy Current Visit: No Status: Acute Code(s): Z88.0 - ALLERGY STATUS TO PENICILLIN SNOMED Code(s): 73541935 Plan: 1patient presented to hospital with mental status changes in this patient who did have a positive UA elevated white count concerning for catheter since UTI with the last urine culture in the system is ESBL E. coli will need to cover for resistant gram-negative while waiting for the culture to finalize 2-penicillin allergy that will limit the number of antibiotics safe to use 3-patient seem to have some clinical improvement initial urine culture reported negative repeat UA is positive continue with the meropenem while waiting for rep eat culture to finalize Dictation was produced using [employer] dictation software. please excuse any gr ammatical, word or spelling errors.
--- NOTE | 2024-08-23 15:48 | P.PN ---
Subjective Progress Note Date: 08/23/24 Hospital course: Patient is a pleasant 39-year-old female past medical history of chronic debility wheelchair bound, GERD, Wernicke's encephalopathy, Mnire's disease, Raynaud's, recurrent UTIs, epilepsy, and chronic indwelling suprapubic catheter. She presented to our facility as a transfer from [facility] on 08/20/2024 secondary to altered mental status secondary to hyponatremia with sodium of 150, UTI, and COVID-19 infection. Physical exam: Patient seen evaluated bedside this morning. She is resting comfortably. Currently denies having chronic pain but denies any additional complaints at this time. Vital signs reviewed and stable. General: Nontoxic, no distress and appears older than stated age. Frail and emaciated, chronically ill appearing. Derm: Skin warm and dry, normal coloration for ethnicity. Head: Atraumatic, normocephalic and symmetric. Eyes: EOM's intact, no lid lag, and anicteric sclera Mouth: no lip lesions, mucus membranes moist Cardiovascular: regular rate and rhythm with normal S1S2, no murmur, positive posterior tibial pulses bilaterally, and cap refill < 2 seconds. Lungs: Respirations even, regular, and unlabored on room air. Lungs CTA bilaterally, no rhonchi, no rales, no wheezing, and no accessory muscle usage. Abdominal: soft, nontender to palpation, no guarding, no appreciable organomegaly. Suprapubic catheter in place Ext: No gross muscle atrophy, no edema, no contractures. Movement and sensation intact Neuro: Speech clear, face symmetrical and CN II-XII grossly intact with no noted focal neuro deficits Psych: Alert and oriented to person, place, and situation. Confused to time. Appropriate and pleasant affect. Assessment and Plan of Care: Acute metabolic encephalopathy, likely infectious resulting from acute UTI and COVID infection UTI, with chronic indwelling suprapubic catheter present on admission due to neurogenic bladder History of previous MRSA and ESBL infections High anion gap metabolic acidosis Wernicke's encephalopathy -Thiamine ordered, 500mg IV q8h for 1 more day, then 250mg IV daily for 5 days, then weaning it down to 100mg IV daily -Blood and urine culture pending -Indwelling suprapubic catheter present on admission, also has a urostomy -Continue meropenem 1 g IVPB every 8 hours pending final culture and sensitivity report. -Neurology following, reviewed documentation and chart -Infectious disease following, reviewed documentation and chart Hypernatremia, hypovolemic, likely due to poor intake -Improving from 153 down to 147 this morning -Cortisol level was elevated at 59.8, however patient is on daily Florinef -Continue fludrocortisone 0.1 mg twice daily -0.9% normal saline infusion discontinued and patient started on D5.45 at 75 cc/h. Continue close monitoring of sodium levels with repeat morning BMP. Pre-renal azotemia, due to dehydration -Initial BUN 30, creatinine 0.88 with BUN of 24 and creatinine of 0.83 with GFR of 90. -Monitor BMP Epilepsy -Continue home medication regimen with Topamax 50 mg 3 times daily and Dilantin 100 mg 3 times daily. -Follow-up on phenytoin level once resulted. GERD -Continue Pepcid 40 mg nightly. Fibromyalgia Anxiety/depression Wernicke's encephalopathy secondary to longstanding history of alcohol abuse -Continue home medication regimen with BuSpar 5 mg 3 times daily, Seroquel 50 mg nightly, and Effexor 75 mg 3 times daily. Data and imaging reviewed: -Morning labs reviewed. CBC showing normocytic anemia with hemoglobin of 10.6. BMP showing resolution of hypernatremia with sodium of 142, potassium 3.1, chloride 113, bicarb 18, and anion gap of 11. Blood glucose 99. Liver profile showing elevated AST of 37, ALT of 40, and alkaline phosphatase of 137. Magnesium 1.8. Blood culture showing no growth to date. Awaiting repeat urine culture to finalize. -Vital signs reviewed. Blood pressure 103/77, heart rate 80, respiratory rate 14, temp 97.1 F, and SpO2 of 95% on room air. CODE STATUS: Full code DVT prophylaxis: Lovenox Anticipated discharge date: Pending clinical course, likely in the next [address]: Patient to return home with family Patient was seen independently by Nurse Pracitioner. This document was prepared using 2,10E+07 dictation software. Please allow for errors in developer evangelist, while rare they do occur. Albert Dong NP rendered care for this patient independently, reviewed the findings and plan as documented in the note above and agree with plan. I did not physically speak with or examine the patient on this date. Objective - Vital Signs Vital signs: Vital Signs Temp 97.1 F L 08/23/24 07:58 Pulse 80 08/23/24 07:58 Resp 14 08/23/24 07:58 BP 103/77 08/23/24 07:58 Pulse Ox 95 08/23/24 07:58 FiO2 Intake & Output 08/22/24 08/23/24 08/23/24 18:59 06:59 18:59 Intake Total 1316 Output Total 1475 3100 525 Balance -159 -3100 -525 Weight 51 kg Intake: Oral 1316 Output: Urine 1475 3100 525 Other: Voiding Method Ileal Conduit (Right) Ileal Conduit (Right) - Labs CBC & Chem 7: 08/23/24 09:55 08/23/24 09:55 Labs: Abnormal Lab Results - Last 24 Hours (Table) 08/22/24 Range/Units 16:23 Urine Protein Trace H (Negative) Ur Leukocyte Esterase Large H (Negative) Urine WBC 17 H (0-5) /hpf Microbiology - Last 24 Hours (Table) 08/20/24 17:30 Blood Culture - Preliminary Blood 08/20/24 18:40 Urine Culture - Final Urine,Voided
[2024-08-23] MEDS: POTASSIUM CHLORIDE ER 20 MEQ TAB.ER PO STA (17:23)
[2024-08-24] MEDS: HALOPERIDOL LACTATE 5 MG/ML 1 ML VIAL IVP PRN (00:59)
[2024-08-24 08:47] LABS: Anisocytosis Slight; HCT 35.5 % (34.0-46.0); HGB 10.8 gm/dL (11.4-16.0); Hypochromasia Slight; MCH 28.6 pg (25.0-35.0); MCHC 30.5 g/dL (31.0-37.0); Mean Platelet Volume 7.6; Platelet Count 299 k/uL (150-450); Poikilocytosis Slight; RBC 3.77 m/uL (3.80-5.40); RDW 16.8 % (11.5-15.5)
[2024-08-24 09:14] LABS: ALT 41 U/L (4-34); AST 34 U/L (14-36); African American GFR (CKD) >90 (>60 ml/min/1.73 sqM); Albumin 3.9 g/dL (3.5-5.0); Alkaline Phosphatase 147 U/L (38-126); Anion Gap 10 mmol/L; Blood Urea Nitrogen 11 mg/dL (7-17); Calcium 8.9 mg/dL (8.4-10.2); Carbon Dioxide 20 mmol/L (22-30); Chloride 114 mmol/L (98-107); Glucose 92 mg/dL (74-99); Magnesium 1.9 mg/dL (1.6-2.3); Non-African American GFR(CKD) >90 (>60 ml/min/1.73 sqM); Potassium 3.8 mmol/L (3.5-5.1); Sodium 144 mmol/L (137-145); Total Bilirubin 0.4 mg/dL (0.2-1.3); Total Protein 6.3 g/dL (6.3-8.2)
--- NOTE | 2024-08-24 11:52 | P.DS ---
Providers Date of admission: 08/20/24 17:51 Expected date of discharge: 08/24/24 Attending physician: Aditya Brooks Consults: 08/20/24 17:51 Consult Physician Routine Consulting Provider: Jennifer Lindo Consult Reason/Comments: AMS with current UTI/Covid, history of Wernike's Do you want consulting provider notified?: Yes Consult Physician Routine Consulting Provider: Chika Xavier Consult Reason/Comments: uti Do you want consulting provider notified?: Yes Primary care physician: Kyler Whalen Hospital Course: Discharge Diagnosis: Acute metabolic encephalopathy, secondary to resulting from acute UTI and COVID infection Wernicke's encephalopathy secondary to longstanding history of alcohol abuse UTI, with chronic indwelling suprapubic catheter present on admission due to neurogenic bladder History of previous MRSA and ESBL infections High anion gap metabolic acidosis Wernicke's encephalopathy Hypernatremia, hypovolemic, likely due to poor intake Prerenal azotemia, due to dehydration Epilepsy GERD Fibromyalgia Anxiety/depression Hospital course: Patient is a pleasant 39-year-old female past medical history of chronic debility wheelchair bound, GERD, Wernicke's encephalopathy, Mnire's disease, Raynaud's, recurrent UTIs, epilepsy, and chronic indwelling suprapubic catheter. She presented to our facility as a transfer from [facility] on 08/20/2024 secondary to altered mental status secondary to hyponatremia with sodium of 150, UTI, and COVID-19 infection. She was admitted under our services and underwent evaluation by neurology and infectious disease. Hypernatremia was treated with gentle D5.45% NS which resulted in resolution of hyponatremia. Patient was treated with IV antibiotics with meropenem secondary to history of ESBL on previous urine culture and allergy to penicillin . Patient's mentation improved and back to baseline.. She is maintaining SpO2 greater then or equal to 93% on room air throughout entire hospitalization. Hypernatremia resolved. Blood culture revealed no growth to date. Urine culture was negative and a repeat urinalysis and culture was completed also negative. Neurology clearing patient from neurological perspective for discharge. Infectious disease in agreement to discontinue antibiotics and appropriate for discharge at this time. Patient is medically optimized, declined need for home care states lives at home with her and has assistance with managing everything she needs. Physical exam: Vital signs reviewed and stable. General: Nontoxic, no distress and appears older than stated age. Frail and emaciated, chronically ill appearing. Derm: Skin warm and dry, normal coloration for ethnicity. Head: Atraumatic, normocephalic and symmetric. Eyes: EOM's intact, no lid lag, and anicteric sclera Mouth: no lip lesions, mucus membranes moist Cardiovascular: regular rate and rhythm with normal S1S2, no murmur, positive posterior tibial pulses bilaterally, and cap refill < 2 seconds. Lungs: Respirations even, regular, and unlabored on room air. Lungs CTA bilaterally, no rhonchi, no rales, no wheezing, and no accessory muscle usage. Abdominal: soft, nontender to palpation, no guarding, no appreciable organomegaly. Suprapubic catheter in place Ext: No gross muscle atrophy, no edema, no contractures. Movement and sensation intact Neuro: Speech clear, face symmetrical and CN II-XII grossly intact with no noted focal neuro deficits Psych: Alert and oriented to person, place, and situation. Confused to time. Appropriate and pleasant affect. A total of 34 minutes of time were spent preparing this complex discharge summary. Pt was discharged on 08/24/2024 at 11:49 AM. Patient was seen independently by Nurse Practitioner. This document was prepared using [employer] dictation software. Please allow for errors in bulk driver while rare they do occur. Albert Dong NP rendered care for this patient independently, reviewed the findings and plan as documented in the note above. I did not physically speak with or examine the patient on this date. Patient Condition at Discharge: Stable Plan - Discharge Summary Discharge Rx Participant: No New Discharge Prescriptions: Continue Gabapentin [Neurontin] 1,200 mg PO TID QUEtiapine FUMARATE 50 mg PO HS Zolpidem Tartrate [Ambien Cr] 12.5 mg PO HS Fludrocortisone [Florinef] 0.1 mg PO BID Pyridoxine [Vitamin B-6] 50 mg PO DAILY Oxybutynin Chloride [oxyBUTYnin chloride ER] 10 mg PO DAILY Famotidine 40 mg PO HS Topiramate [Topamax] 50 mg PO TID Venlafaxine HCl [Effexor] 75 mg PO TID Sodium Bicarbonate Tab 650 mg PO BID Lactulose 10 gm PO TID PRN PRN Reason: Constipation HYDROcodone/APAP 7.5-325MG [[place] 7.5-325] 1 tab PO Q6H PRN PRN Reason: Pain busPIRone HCl [Buspar] 5 mg PO TID Baclofen [Lioresal] 20 mg PO TID allopurinoL [Zyloprim] 100 mg PO DAILY Cranberry/Vitamin C 60mg/250mg 1 tab PO DAILY Thiamine [Vitamin B-1] 100 mg PO DAILY Phenytoin Sodium Extended [Dilantin] 100 mg PO TID Multivit-Min/Iron/Folic/Lutein [Centrum Silver Women Tablet] 1 tab PO DAILY Discharge Medication List Gabapentin [Neurontin] 1,200 mg PO TID 12/25/17 [History] QUEtiapine FUMARATE 50 mg PO HS 11/25/19 [History] Zolpidem Tartrate [Ambien Cr] 12.5 mg PO HS 11/25/19 [History] Fludrocortisone [Florinef] 0.1 mg PO BID 07/19/21 [History] Famotidine 40 mg PO HS 01/05/24 [History] Oxybutynin Chloride [oxyBUTYnin chloride ER] 10 mg PO DAILY 01/05/24 [History] Pyridoxine [Vitamin B-6] 50 mg PO DAILY 01/05/24 [History] Thiamine [Vitamin B-1] 100 mg PO DAILY 01/05/24 [History] Topiramate [Topamax] 50 mg PO TID 01/05/24 [History] Baclofen [Lioresal] 20 mg PO TID 08/20/24 [History] Cranberry/Vitamin C 60mg/250mg 1 tab PO DAILY 08/20/24 [History] HYDROcodone/APAP 7.5-325MG [[place] 7.5-325] 1 tab PO Q6H PRN 08/20/24 [History] Lactulose 10 gm PO TID PRN 08/20/24 [History] Multivit-Min/Iron/Folic/Lutein [Centrum Silver Women Tablet] 1 tab PO DAILY 08/20/24 [History] Phenytoin Sodium Extended [Dilantin] 100 mg PO TID 08/20/24 [History] Sodium Bicarbonate Tab 650 mg PO BID 08/20/24 [History] Venlafaxine HCl [Effexor] 75 mg PO TID 08/20/24 [History] allopurinoL [Zyloprim] 100 mg PO DAILY 08/20/24 [History] busPIRone HCl [Buspar] 5 mg PO TID 08/20/24 [History] Follow up Appointment(s)/Referral(s): Kyler Whalen MD [Primary Care Provider] - 1-2 days (Call office to make appointment ) Activity/Diet/Wound Care/Special Instructions: We have been putting a silver dressing on sacral wound. It will need followup from primary care physician. Labs now within normal limits, Urine Culture came back clear. Discharge Disposition: HOME SELF-CARE
[2024-08-24 15:17] VITALS: BP 111/78; PULSE 92; RESP 16; TEMP 98
--- NOTE | 2024-08-24 15:25 | P.PN ---
Subjective Progress Note Date: 08/24/24 Principal diagnosis: Reason for follow-up is UTI Patient is a 39-year-old female with a past medical history significant for reflux encephalopathy epilepsy recurrent UTI did have a urostomy, patient was brought to the hospital concerning for mental status changes and has been diagnosed with UTI On today's evaluation that is 08/24/2024, Patient is afebrile patient is currently on room air and denies having any shortness of breath, the patient denies any chest pain or cough, the patient denies any nausea vomiting did not have any abdominal pain and no diarrhea. White count 6.0, creatinine 0.7 3 repeat urine culture negative as well Objective - Vital Signs Vital signs: Vital Signs Temp 98.0 F 08/24/24 09:04 Pulse 92 08/24/24 09:04 Resp 16 08/24/24 09:04 BP 111/78 08/24/24 09:04 Pulse Ox 98 08/24/24 09:04 FiO2 Intake & Output 08/23/24 08/24/24 08/24/24 17:59 06:59 18:59 Intake Total 120 Output Total 1200 Balance -1080 Intake: Oral 120 Output: Urine 1200 Other: Voiding Method Ileal Conduit (Right) - Exam GENERAL DESCRIPTION: Middle-age female lying in bed in no distress RESPIRATORY SYSTEM: Unlabored breathing , clear to auscultation anteriorly HEART: S1 S2 regular rate and rhythm , ABDOMEN: Soft , no tenderness Patient did have a stage III sacral pressure ulcer but no cellulitis EXTREMITIES: No edema feet - Labs CBC & Chem 7: 08/24/24 08:04 08/24/24 08:04 Labs: Abnormal Lab Results - Last 24 Hours (Table) 08/24/24 08/24/24 Range/Units 08:04 08:04 RBC 3.77 L (3.80-5.40) m/uL Hgb 10.8 L (11.4-16.0) gm/dL MCHC 30.5 L (31.0-37.0) g/dL RDW 16.8 H (11.5-15.5) % Chloride 114 H (98-107) mmol/L Carbon Dioxide 20 L (22-30) mmol/L ALT 41 H (4-34) U/L Alkaline Phosphatase 147 H (38-126) U/L Microbiology - Last 24 Hours (Table) 08/22/24 16:23 Urine Culture - Final Urine,Voided 08/20/24 17:30 Blood Culture - Preliminary Blood Assessment and Plan (1) History of ESBL E. coli infection Status: Acute Code(s): Z86.19 - PERSONAL HISTORY OF OTHER INFECTIOUS AND PARASITIC DISEASES SNOMED Code(s): 674277217 (2) UTI (urinary tract infection) Status: Acute Code(s): N39.0 - URINARY TRACT INFECTION, SITE NOT SPECIFIED SNOMED Code(s): 52938703 (3) Penicillin allergy Status: Acute Code(s): Z88.0 - ALLERGY STATUS TO PENICILLIN SNOMED Code(s): 63881164 (4) Stage III pressure ulcer of sacral region Status: Acute Code(s): L89.153 - PRESSURE ULCER OF SACRAL REGION, STAGE 3 SNOMED Code(s): 00211808223743 Plan: 1patient presented to hospital with mental status changes in this patient who did have a positive UA elevated white count concerning for catheter since UTI with the last urine culture in the system is ESBL E. coli will need to cover for resistant gram-negative while waiting for the culture to finalize 2-penicillin allergy that will limit the number of antibiotics safe to use 3-patient seem to have some clinical improvement and urine culture have been negative x 2 no need for antibiotic on discharge discussed with CUPOLA MECHANIC for admitting team 4patient did have stage III sacral pressure ulcer but no cellulitis local wound care with dry Aquacel silver dressing change q. 48-hour keep the area of the pressure Dictation was produced using [employer] dictation software. please excuse any grammatical, word or spelling errors. Time with Patient: Less than 30
== END 2024-08-24 15:16 | disposition home health service (06) | DRG 70 ==
LOC: EC 16:25 → 3SCARD 17:51
PROVIDERS: ADMIT Student in an Organized Health Care Education/Training Program; ATTEND Student in an Organized Health Care Education/Training Program
DX: G93.41 Metabolic encephalopathy (principal); L89.153 Pressure ulcer of sacral region, stage 3; U07.1 COVID-19; E46 Unspecified protein-calorie malnutrition; E87.0 Hyperosmolality and hypernatremia; E51.2 Wernicke's encephalopathy; E87.1 Hypo-osmolality and hyponatremia; E86.0 Dehydration; G40.919 Epilepsy, unspecified, intractable, without status epilepticus; F10.21 Alcohol dependence, in remission; F32.A Depression, unspecified; N39.0 Urinary tract infection, site not specified; E87.20 Acidosis, unspecified; Z93.6 Other artificial openings of urinary tract status; Z93.59 Other cystostomy status; H81.09 Meniere's disease, unspecified ear; F41.9 Anxiety disorder, unspecified; I73.00 Raynaud's syndrome without gangrene; K21.9 Gastro-esophageal reflux disease without esophagitis; N31.9 Neuromuscular dysfunction of bladder, unspecified; K58.9 Irritable bowel syndrome, unspecified; M79.7 Fibromyalgia; G89.29 Other chronic pain; F40.240 Claustrophobia; E86.1 Hypovolemia; Z79.899 Other long term (current) drug therapy; Z86.14 Personal history of Methicillin resistant Staphylococcus aureus infection; Z86.19 Personal history of other infectious and parasitic diseases; Z87.440 Personal history of urinary (tract) infections; Z88.0 Allergy status to penicillin; Z91.148 Patient's other noncompliance with medication regimen for other reason; Z98.84 Bariatric surgery status; Z99.3 Dependence on wheelchair; Z09 Encounter for follow-up examination after completed treatment for conditions other than malignant neoplasm; Z87.01 Personal history of pneumonia (recurrent); Z87.898 Personal history of other specified conditions
CPT/HCPCS: 36415; 71045; 80048; 80053; 80143; 80179; 80185; 80201; 80306; 80320; 81001; 82140; 82533; 83605; 83735; 83880; 83930; 83935; 84300; 84425; 84443; 85025; 85027; 85610; 85730; 87040; 87086; 93005; 95816; 96361; 96365; 96366; 96368; 96372; 96376; 99285

== ENCOUNTER 2024-08-27 14:22 | Inpatient (IN) | payer OTHER ==
[2024-08-27 15:04] LABS: Glucose,Whole Blood 132 mg/dL (70-110)
--- NOTE | 2024-08-27 15:18 | ED ---
General Adult HPI - General Chief complaint: Altered Mental Status Stated complaint: transfer-infection Time Seen by Provider: 08/27/24 14:31 Source: EMS Mode of arrival: EMS Limitations: altered mental status - History of Present Illness Initial comments: Dictation was produced using [employer] dictation software. please excuse any grammatical, word or spelling errors. Chief Complaint: 39-year-old female with history of Warnicke Korsakoff syndrome, epilepsy suprapubic catheter presents to the ER for status History of Present Illness: Patient 39-year-old male presents to the emergency department as a transfer from [facility]. Patient initially seen there for confusion altered mental status. Patient just discharged from our facility 3 days ago. Patient seen there for chief complaint of altered mental status and aggressive behavior. Patient's primary lower school spanish teacher is her . According to transferring physician patient transferred for altered mental status and leukocytosis. EMS patient had some Ativan en route to the emergency department for aggressive behavior The ROS documented in this emergency department record has been reviewed and confirmed by me. Those systems with pertinent positive or negative responses have been documented in the HPI. All other systems are other negative and/or noncontributory. - Related Data Home Medications Medication Instructions Recorded Confirmed Gabapentin [Neurontin] 1,200 mg PO TID 12/25/17 08/20/24 QUEtiapine FUMARATE 50 mg PO HS 11/25/19 08/20/24 Zolpidem Tartrate [Ambien Cr] 12.5 mg PO HS 11/25/19 08/20/24 Fludrocortisone [Florinef] 0.1 mg PO BID 07/19/21 08/20/24 Famotidine 40 mg PO HS 01/05/24 08/20/24 Oxybutynin Chloride [oxyBUTYnin 10 mg PO DAILY 01/05/24 08/20/24 chloride ER] Pyridoxine [Vitamin B-6] 50 mg PO DAILY 01/05/24 08/20/24 Thiamine [Vitamin B-1] 100 mg PO DAILY 01/05/24 08/20/24 Topiramate [Topamax] 50 mg PO TID 01/05/24 08/20/24 Baclofen [Lioresal] 20 mg PO TID 08/20/24 08/20/24 Cranberry/Vitamin C 60mg/250mg 1 tab PO DAILY 08/20/24 08/20/24 HYDROcodone/APAP 7.5-325MG [[place] 1 tab PO Q6H PRN 08/20/24 08/20/24 7.5-325] Lactulose 10 gm PO TID PRN 08/20/24 08/20/24 Multivit-Min/Iron/Folic/Lutein 1 tab PO DAILY 08/20/24 08/20/24 [Centrum Silver Women Tablet] Phenytoin Sodium Extended 100 mg PO TID 08/20/24 08/20/24 [Dilantin] Sodium Bicarbonate Tab 650 mg PO BID 08/20/24 08/20/24 Venlafaxine HCl [Effexor] 75 mg PO TID 08/20/24 08/20/24 allopurinoL [Zyloprim] 100 mg PO DAILY 08/20/24 08/20/24 busPIRone HCl [Buspar] 5 mg PO TID 08/20/24 08/20/24 Allergies Allergy/AdvReac Type Severity Reaction Status Date / Time levetiracetam [From [facility]] Allergy Rash/Hives Verified 08/27/24 14:35 Penicillins Allergy "STOPPED Verified 08/27/24 14:35 BREATHING" NSAIDS (Non-Steroidal AdvReac "MAY CAUSE Verified 08/27/24 14:35 Anti-Inflamma ULCERS R/T BARIATRIC SX" Review of Systems ROS Statement: Those systems with pertinent positive or pertinent negative responses have been documented in the HPI. ROS Other: All systems not noted in ROS Statement are negative. Past Medical History Past Medical History: Fibromyalgia, GERD/Reflux, Pneumonia, Seizure Disorder Additional Past Medical History / Comment(s): has seizures on a daily basis one or more a day, cHRONIC NECK/BACK PAIN, N/T FINGERS AND TOES, RAYNAUDS SYN. MENIERE'S,tinnitus, past uterine prolpase(sx) IBS, MUSCLE WEAKNESS, USES WALKER OR W/C History of Any Multi-Drug Resistant Organisms: ESBL, MRSA Date of last positivie culture/infection: 01/06/24 - ESBL; 08/18/22 - MRSA MDRO Source:: URINE - ESBL; Urine - MRSA Past Surgical History: Bariatric Surgery, Cholecystectomy, Hysterectomy Additional Past Surgical History / Comment(s): EYE SX (MUSCLES), radha en y 2013 Past Anesthesia/Blood Transfusion Reactions: No Reported Reaction Additional Past Anesthesia/Blood Transfusion Reaction / Comment(s): clausterphobia Past Psychological History: Anxiety, Depression Smoking Status: Unknown if ever smoked Past Alcohol Use History: Unable to Obtain Past Drug Use History: Unable to Obtain, Marijuana - Past Family History Mother Family Medical History: Cancer Additional Family Medical History / Comment(s): TONGUE Father Family Medical History: Hypertension General Exam - General Exam Comments Initial Comments: PHYSICAL EXAM: General Impression: Somnolent HEENT: Normocephalic atraumatic, extra-ocular movements intact, pupils equal and reactive to light bilaterally, mucous membranes moist. Cardiovascular: Heart regular rate and rhythm Chest: no retractions, no tachypnea Abdomen: abdomen soft, non-tender, non-distended, no organomegaly Musculoskeletal: Pulses present and equal in all extremities, no peripheral edema Motor: no focal deficits noted Neurological: Moves all extremities grossly Skin: Intact with no visualized rashes Limitations: altered mental status Course Vital Signs 08/27/24 08/27/24 14:30 15:26 Temperature 97.1 F L Pulse Rate 133 H 119 H Respiratory 16 16 Rate Blood Pressure 106/84 108/77 O2 Sat by Pulse 98 100 Oximetry Medical Decision Making - Medical Decision Making Was pt. sent in by a medical professional or institution (, PA, STUDENT ADMISSIONS CLERK, urgent care, hospital, or long term...) When possible be specific @ -From outside emergency department Did you speak to anyone other than the patient for history (EMS, parent, family, police, friend...)? What history was obtained from this source @ -Above Did you review nursing and triage notes (agree or disagree)? Why? @ -I reviewed and agree with nursing and triage notes Were old charts reviewed (outside hosp., previous admission, EMS record, old EKG, old radiological studies, urgent care reports/EKG's, long term records)? Report findings @ -No old charts were reviewed Differential Diagnosis (chest pain, altered mental status, abdominal pain women, abdominal pain men, vaginal bleeding, musculoskeletal, weakness, fever, dyspnea, syncope, headache, dizziness, GI bleed, back pain, seizure, CVA, palpatations, mental health)? @ -Differential Altered Mental Status: Hypoglycemia, DKA, hypercapnia, ETOH, overdose, CO poisoning, trauma, myxedema coma, HTN encephalopathy, infection, encephalitis, psychosis, intercranial hemorrhage, hepatic encephalopathy, meningitis, CVA, this is not meant to be an all-inclusive list EKG interpreted by me (3pts min.). @ -None done X-rays interpreted by me (1pt min.). @ -None done CT interpreted by me (1pt min.). @ -None done U/S interpreted by me (1pt. min.). @ -None done What testing was considered but not performed or refused? (CT, X-rays, U/S, labs)? Why? @ -None What meds were considered but not given or refused? Why? @ -None Was smoking cessation discussed for >3mins.? @ -No Were there social determinants of health that impacted care today? How? (Homelessness, low income, unemployed, alcoholism, drug addiction, transportation, low edu. Level, literacy, decrease access to med. care, fdc, rehab)? @ -No Was there de-escalation of care discussed even if they declined (Discuss DNR or withdrawal of care, Hospice)? DNR status @ -No What co-morbidities impacted this encounter? (DM, HTN, Smoking, COPD, CAD, Cancer, CVA, ARF, Chemo, Hep., AIDS, mental health diagnosis, sleep apnea, morbid obesity)? @ -None Was patient admitted / discharged? Hospital course, mention meds given and route, prescriptions, significant lab abnormalities, going to OR and other pertinent info. @ -39-year-old female with history of Warnicke Korsakoff syndrome presents to the ER for altered mental status and aggressive behavior. Vital signs are stable. Patient seen and evaluated at [facility] emergency department transferred for further care. Chronic care close glucose is normal. Labs reviewed showing leukocytosis of 24. Patient receiving Ativan. Parents palpitations. Patient admitted. Case discussed with Did you discuss the management of the patient with other professionals (professionals i.e. , PA, STUDENT ADMISSIONS CLERK, lab, RT, psych nurse, social science professor, division merchandise manager, teacher, aoc operations intelligence officer, transplant case manager)? Give summary @ -See above Was critical care preformed (if so, how long)? @ -No Undiagnosed new problem with uncertain prognosis? @ -No Drug Therapy requiring intensive monitoring for toxicity (Heparin, Nitro, Insulin, Cardizem)? @ -No Were any procedures done? @ -No Diagnosis/symptom? Acute, or Chronic, or Acute on Chronic? Uncomplicated (without systemic symptoms) or Complicated (systemic symptoms)? @ -Altered mental status Side effects of treatment? @ -No Exacerbation, Progression, or Severe Exacerbation? @ -No Poses a threat to life or bodily function? How? (Chest pain, [place], [place], pneumonia, PE, COPD, DKA, ARF, appy, cholecystitis, CVA, Diverticulitis, Homicidal, Suicidal, threat to staff... and all critical care pts) @ -yes - Lab Data Lab Results 08/27/24 Range/Units 15:02 POC Glucose (mg/dL) 132 H (70-110) mg/dL POC Glu Reliability Technologist ID Ellen Umanzor Disposition Clinical Impression: AMS (altered mental status) Disposition: ADMITTED IP TO THIS HOSP Condition: Fair Referrals: Kyler Whalen MD [Primary Care Provider] - 1-2 days Decision Time: 15:45
[2024-08-27] MEDS ORDERED: NALOXONE 0.4 MG/ML 1 ML VIAL IV PRN (15:43)
[2024-08-27 16:22] LABS: Amphetamine Screen,Urine Not Detected (NotDetected); Barbiturate Screen,Urine Detected (NotDetected); Benzodiazepines Screen,Urine Detected (NotDetected); Cocaine Screen,Urine Not Detected (NotDetected); Methadone Screen, Urine Not Detected (NotDetected); Opiate Screen,Urine Not Detected (NotDetected); Oxycodone Screen, Urine Not Detected (NotDetected); Phencyclidine Screen,Urine Not Detected (NotDetected); Tricyclic Antidepressant,Urine Not Detected (NotDetected); Urn Cannabinoid Scrn Not Detected (NotDetected)
[2024-08-27 16:41] LABS: Anisocytosis Slight; HCT 43.7 % (34.0-46.0); HGB 13.3 gm/dL (11.4-16.0); Hypochromasia Moderate; MCH 28.9 pg (25.0-35.0); MCHC 30.6 g/dL (31.0-37.0); MCV 94.7 fL (80.0-100.0); Mean Platelet Volume 7.1; Platelet Count 368 k/uL (150-450); RBC 4.61 m/uL (3.80-5.40); RDW 16.2 % (11.5-15.5); WBC 21.3 k/uL (3.8-10.6)
[2024-08-27] MEDS ORDERED: LORazepam 1 MG/0.5 ML VIAL IV STA (16:47)
[2024-08-27 16:54] LABS: ALT 47 U/L (4-34); AST 46 U/L (14-36); African American GFR (CKD) >90 (>60 ml/min/1.73 sqM); Albumin 4.5 g/dL (3.5-5.0); Alcohol <10 mg/dL; Alkaline Phosphatase 164 U/L (38-126); Anion Gap 13 mmol/L; Blood Urea Nitrogen 39 mg/dL (7-17); Calcium 9.5 mg/dL (8.4-10.2); Carbon Dioxide 21 mmol/L (22-30); Chloride 117 mmol/L (98-107); Glucose 122 mg/dL (74-99); Magnesium 2.4 mg/dL (1.6-2.3); Non-African American GFR(CKD) 80 (>60 ml/min/1.73 sqM); Potassium 4.1 mmol/L (3.5-5.1); Sodium 151 mmol/L (137-145); Total Bilirubin 0.5 mg/dL (0.2-1.3); Total Protein 7.3 g/dL (6.3-8.2)
--- NOTE | 2024-08-27 17:02 | P.HPIM ---
History of Present Illness H&P Date: 08/27/24 History of Presenting Illness: Patient is a pleasant 39-year-old female past medical history of chronic debility wheelchair bound, chronic pressure ulcer to coccyx, GERD, Wernicke's encephalopathy, Mnire's disease, Raynaud's, recurrent UTIs with chronic indwelling suprapubic catheter, epilepsy, fibromyalgia, and anxiety with depress ion. She recently underwent hospitalization at our facility from 08/20/2024 through 08/24/2024 secondary to acute metabolic encephalopathy secondary to hypernatremia, UTI and COVID infection. After improvement of symptoms patient was discharged home into care of her caregiver/, they were offered home care for but refused stated he manages everything. Patient return to our facility today as a transfer from [facility] where she again presented with altered mental status and reports that has been stated patient has refused all medications since discharge. Patient underwent evaluation at [facility] and was found to have an elevated WBC count of 21.13 (which was 6.0 on day of discharge 08/24), hyponatremia with sodium of 151 (which was 144 on day of discharge 08/24). Per transfer documentation, patient arrived to their facility alert to self only. She was afebrile with vital signs otherwise normal. Urinalysis from their facility reporting hazy clarity positive for 1+ bilirubin, 1+ ketones, trace blood, 1+ protein, 0.2 urobilinogen, negative for nitrates, trace leukocytes, 5-10 WBCs, and 1-3 RBCs with 0-2 squamous epithelial cells and 1+ bacteria. CBC reported WBC count 21.13, hemoglobin 15.2, hematocrit 50.8, MCV 98.4, and platelet count of 526. Neutrophils also reported elevated at 17.66 with basophils of 0.11. BMP reporting sodium 150, chloride 115, bicarb 17, glucose 218, BUN 40, creatinine 1.15, and GFR 55.63. Liver profile showing transaminitis with AST of 76, ALT of 65, and alkaline phosphatase of 187. Procalcitonin reported at 0.12. Magnesium was 1.2. Initial lactate 5.6 with repeat lactic 4.3 chest x-ray was completed negative for acute cardiopulmonary process COVID antigen test was reported as negative. Patient was transferred to our facility for higher level of care. She was admitted under our services with consultation to infectious disease and neurology. Upon arrival to our facility, patient remained altered and alert to self only. She underwent evaluation in the emergency department. Vital signs upon arrival show blood pressure 105/69, heart rate 99, respiratory rate 18, temp 97.4 F, and SpO2 of 95% on room air. Labs upon arrival were repeated showing WBC count of 21.3, sodium of 151, chloride of 117, bicarb 21, anion gap of 13, and prerenal azotemia with BUN of 39, creatinine 0.91, GFR of 80. Blood glucose was 122. Magnesium 2.4. And liver profile showing continued transaminitis with AST of 46, ALT of 47, and alkaline phosphatase of 164. Ammonia level was less than 9. Urine drug screen positive for barbiturates and benzodiazepines. Serum alcohol level was negative at less than 10. Discussed with ED physician, patient to undergo a stat CT head, started on IV fluid hydration, and admitted to stepdown unit. Review of systems: Pertinent positives and negatives as discussed in HPI, a complete review of systems was performed and all other systems are negative. Physical exam: Vital signs reviewed and stable. General: Nontoxic, no distress and appears older than stated age. Frail and emaciated, chronically ill appearing. Derm: Skin warm and dry, normal coloration for ethnicity. Stage III pressure ulcer to coccyx, pink no surrounding erythema and no necrosis. Patient with bruises on arms 3 scrapes/abrasions noted on right posterior ribs/back. Head: Atraumatic, normocephalic and symmetric. Eyes: no lid lag, and anicteric sclera Mouth: no lip lesions, mucus membranes dry Cardiovascular: regular rate and rhythm with normal S1S2, no murmur, positive posterior tibial pulses bilaterally, and cap refill < 2 seconds. Lungs: Respirations even, regular, and unlabored on room air. Lungs CTA bilaterally, no rhonchi, no rales, no wheezing, and no accessory muscle usage. Abdominal: soft, nontender to palpation, no guarding, no appreciable organomegaly. Urostomy/suprapubic catheter in place Ext: No gross muscle atrophy, no edema, no contractures. Patient frail and emaciated by moving extremities independently. Patient unable to follow commands but withdrawing from pain. Neuro/psych: Patient moaning, nonverbal at this time, moving independently and withdrawing from pain. Patient curling up on left side. Assessment and Plan of Care: Acute metabolic encephalopathy, unclear cause Hypernatremia, suspect hypovolemic hypernatremia resulting from poor oral intake and dehydration High anion gap metabolic acidosis Leukocytosis Wernicke's encephalopathy -Need STAT CT brain -Neurochecks every 4 hours -Seizure, fall, and aspiration precautions to be maintained. -Close monitoring of vital signs with continuous telemetry monitoring. -Gentle IV fluid hydration with D5.45 at 75 cc/h with repeat BMP every 6 hours to monitor for improvement/resolution of hypernatremia. -Obtain phenytoin level -VBG -Neurology consulted, appreciate recommendations -Infectious disease consulted, discussed in depth with Dr. Xavier recommending holding off on antibiotics at this time. -Thiamine 100mg daily Pt status post recent treatment for UTI with chronic suprapubic catheter and has hx of recurrent UTI's Neurogenic bladder with chronic urostomy/suprapubic catheter -Urine cultures x 2 completed 08/20/2024 and 08/22/2024 were negative showing no growth. -Indwelling suprapubic catheter present on admission, also has a urostomy -Infectious disease following, discussed in depth with Dr. Xavier recommending holding off on antibiotics at this time. Pre-renal azotemia, suspect secondary to poor oral intake with dehydration -Gentle IV fluid hydration with D5 0.45% NS at 75 cc/h with close monitoring of BMP. Epilepsy -Continue home medication regimen with Topamax 50 mg 3 times daily and Dilantin 100 mg 3 times daily. -Order placed for phenytoin level. GERD -Continue Pepcid 40 mg nightly. Fibromyalgia Anxiety/depression Wernicke's encephalopathy secondary to longstanding history of alcohol abuse -Continue home medication regimen with BuSpar 5 mg 3 times daily, Seroquel 50 mg nightly, and Effexor 75 mg 3 times daily. Pressure ulcer to sacrum/coccyx, present on admission -Patient with stage II-III pressure ulcer to coccyx. Order placed for wound care consult. -Order placed to turn every 2 hours and offload from coccyx. Data and imaging reviewed: -As stated above in HPI. Consult also placed to social work for assistance with possible placement on discharge. The patient is admitted with an anticipated greater than 2 midnight stay for evaluation of acute metabolic encephalopathy CODE STATUS: Full code DVT prophylaxis: Lovenox Discussed with: ED physician, infectious disease physician, and RN Anticipated discharge date: Pending clinical course Anticipated discharge place: Pending clinical course Patient was seen independently by Nurse Practitioner. This document was prepared using [employer] dictation software. Please allow for errors in director investment banking while rare they do occur. Albert Dong NP rendered care for this patient independently, reviewed the findings and plan as documented in the note above and agree with plan. I did not physically speak with or examine the patient on this date. Past Medical History Past Medical History: Fibromyalgia, GERD/Reflux, Pneumonia, Seizure Disorder Additional Past Medical History / Comment(s): has seizures on a daily basis one or more a day, cHRONIC NECK/BACK PAIN, N/T FINGERS AND TOES, RAYNAUDS SYN. MENIERE'S,tinnitus, past uterine prolpase(sx) IBS, MUSCLE WEAKNESS, USES WALKER OR W/C History of Any Multi-Drug Resistant Organisms: ESBL, MRSA Date of last positivie culture/infection: 01/06/24 - ESBL; 08/18/22 - MRSA MDRO Source:: URINE - ESBL; Urine - MRSA Past Surgical History: Bariatric Surgery, Cholecystectomy, Hysterectomy Additional Past Surgical History / Comment(s): EYE SX (MUSCLES), radha en y 2012 Past Anesthesia/Blood Transfusion Reactions: No Reported Reaction Additional Past Anesthesia/Blood Transfusion Reaction / Comment(s): clausterphobia Past Psychological History: Anxiety, Depression Smoking Status: Unknown if ever smoked Past Alcohol Use History: Unable to Obtain Past Drug Use History: Unable to Obtain, Marijuana - Past Family History Mother Family Medical History: Cancer Additional Family Medical History / Comment(s): TONGUE Father Family Medical History: Hypertension Medications and Allergies Home Medications Medication Instructions Recorded Confirmed Type Gabapentin [Neurontin] 1,200 mg PO TID 12/25/17 08/27/24 History QUEtiapine FUMARATE 50 mg PO HS 11/25/19 08/27/24 History Zolpidem Tartrate [Ambien Cr] 12.5 mg PO HS 11/25/19 08/27/24 History Fludrocortisone [Florinef] 0.1 mg PO BID 07/19/21 08/27/24 History Famotidine 40 mg PO HS 01/05/24 08/27/24 History Oxybutynin Chloride [oxyBUTYnin 10 mg PO DAILY 01/05/24 08/27/24 History chloride ER] Pyridoxine [Vitamin B-6] 50 mg PO DAILY 01/05/24 08/27/24 History Thiamine [Vitamin B-1] 100 mg PO DAILY 01/05/24 08/27/24 History Topiramate [Topamax] 50 mg PO TID 01/05/24 08/27/24 History Baclofen [Lioresal] 20 mg PO TID 08/20/24 08/27/24 History Cranberry/Vitamin C 60mg/250mg 1 tab PO DAILY 08/20/24 08/27/24 History HYDROcodone/APAP 7.5-325MG [[place] 1 tab PO Q6H PRN 08/20/24 08/27/24 History 7.5-325] Lactulose 10 gm PO TID PRN 08/20/24 08/27/24 History Multivit-Min/Iron/Folic/Lutein 1 tab PO DAILY 08/20/24 08/27/24 History [Centrum Silver Women Tablet] Phenytoin Sodium Extended 100 mg PO TID 08/20/24 08/27/24 History [Dilantin] Sodium Bicarbonate Tab 650 mg PO BID 08/20/24 08/27/24 History Venlafaxine HCl [Effexor] 75 mg PO TID 08/20/24 08/27/24 History allopurinoL [Zyloprim] 100 mg PO DAILY 08/20/24 08/27/24 History busPIRone HCl [Buspar] 5 mg PO TID 08/20/24 08/27/24 History Allergies Allergy/AdvReac Type Severity Reaction Status Date / Time levetiracetam [From [facility]] Allergy Rash/Hives Verified 08/27/24 17:07 Penicillins Allergy "STOPPED Verified 08/27/24 17:07 BREATHING" NSAIDS (Non-Steroidal AdvReac "MAY CAUSE Verified 08/27/24 17:07 Anti-Inflamma ULCERS R/T BARIATRIC SX" Physical Exam Vitals: Vital Signs Temp Pulse Resp BP Pulse Ox 08/27/24 15:26 119 H 16 108/77 100 08/27/24 14:30 97.1 F L 133 H 16 106/84 98 Intake and Output 08/27/24 08/27/24 08/27/24 06:59 14:59 22:59 Other: Weight 45.359 kg Results CBC & Chem 7: 08/27/24 16:32 08/27/24 16:32 Labs: Abnormal Lab Results - Last 24 Hours (Table) 08/27/24 08/27/24 08/27/24 Range/Units 15:02 15:50 16:32 WBC 21.3 H (3.8-10.6) k/uL MCHC 30.6 L (31.0-37.0) g/dL RDW 16.2 H (11.5-15.5) % Sodium (137-145) mmol/L Chloride (98-107) mmol/L Carbon Dioxide (22-30) mmol/L BUN (7-17) mg/dL Glucose (74-99) mg/dL POC Glucose (mg/dL) 132 H (70-110) mg/dL Magnesium (1.6-2.3) mg/dL AST (14-36) U/L ALT (4-34) U/L Alkaline Phosphatase (38-126) U/L Ur Barbiturates Screen Detected H (NotDetected) U Benzodiazepines Scrn Detected H (NotDetected) 08/27/24 Range/Units 16:32 WBC (3.8-10.6) k/uL MCHC (31.0-37.0) g/dL RDW (11.5-15.5) % Sodium 151 H (137-145) mmol/L Chloride 117 H (98-107) mmol/L Carbon Dioxide 21 L (22-30) mmol/L BUN 39 H (7-17) mg/dL Glucose 122 H (74-99) mg/dL POC Glucose (mg/dL) (70-110) mg/dL Magnesium 2.4 H (1.6-2.3) mg/dL AST 46 H (14-36) U/L ALT 47 H (4-34) U/L Alkaline Phosphatase 164 H (38-126) U/L Ur Barbiturates Screen (NotDetected) U Benzodiazepines Scrn (NotDetected)
[2024-08-27] MEDS: SODIUM CHLORIDE 0.9% 1,000 ML IV SCH (17:07)
[2024-08-27] MEDS: LORazepam 2 MG/ML INJ IV STA (17:09)
[2024-08-27] MEDS ORDERED: LACTULOSE 20 GM/30 ML CUP PO PRN (18:24)
--- NOTE | 2024-08-27 18:41 | CT ---
EXAMINATION TYPE: CT brain wo con CT DLP: 1491.4 mGycm, Automated exposure control for dose reduction was used. DATE OF EXAM: 08/27/2024 6:14 PM COMPARISON: CT brain 11/25/2019 CLINICAL INDICATION:Female, 39 years old with history of ams, AMS. TECHNIQUE: Brain: Multiple axial CT images of the brain were obtained without IV contrast. . Coronal and sagitta l reformats reviewed. FINDINGS: Motion degraded exam. Brain: Extra-axial spaces: No abnormal extra-axial fluid collections. Ventricular system: Within normal limits Cerebral parenchyma: No acute intraparenchymal hemorrhage or mass effect. The finn-white junction is well differentiated. Cerebellum: Unremarkable. Mass effect: No evidence of midline shift. Intracranial vasculature: unremarkable Soft tissues: Normal. Calvarium/osseous structures: No depressed skull fracture. Paranasal sinuses and mastoid air cells: Clear Visualized orbits: Orbital contents are intact. IMPRESSION: No acute intracranial process. [facility], , 08/27/2024 6:38 PM
[2024-08-27 19:56] LABS: Appearance,Urine Clear (Clear); Bacteria,Urine Rare /hpf; Bilirubin,Urine Negative (Negative); Blood,Urine Small (Negative); Budding Yeast,Urine Occasional /hpf; Color,Urine Light Yellow; Glucose,Urine (UA) Negative (Negative); Hyaline Casts,Urine 1 /lpf (0-2); Ketones,Urine Negative (Negative); Leukocyte Esterase,Urine Small (Negative); Mucus,Urine Rare /hpf; Nitrite,Urine Negative (Negative); Protein,Urine 1+ (Negative); RBC,Urine 3 /hpf (0-5); Specific Gravity,Urine 1.013 (1.001-1.035); WBC,Urine 19 /hpf (0-5)
[2024-08-27] MEDS: DEXTROSE 5%-0.45% NACL 1,000 ML IV SCH (19:56)
[2024-08-27] MEDS: QUEtiapine 50 MG TAB PO SCH (22:18)
[2024-08-27] MEDS: busPIRone HCl 5 MG TAB PO SCH (22:18)
[2024-08-27] MEDS: PHENYTOIN SODIUM EXTENDED 100 MG CAP PO SCH (22:18)
[2024-08-27] MEDS: FLUDROCORTISONE 0.1 MG TAB PO SCH (22:18)
[2024-08-27] MEDS: FAMOTIDINE 20 MG TAB PO SCH (22:18)
[2024-08-27] MEDS: SODIUM BICARBONATE TAB 650 MG TAB PO SCH (22:18)
[2024-08-27] MEDS: TOPIRAMATE 25 MG TAB PO SCH (22:19)
[2024-08-27] MEDS: VENLAFAXINE HCL 75 MG TAB PO SCH (22:19)
--- NOTE | 2024-08-27 23:16 | P.CONS ---
History of Present Illness - Reason for Consult Consult date: 08/27/24 Leukocytosis Requesting physician: Roman Bullock - Chief Complaint Mental status changes x 1 day - History of Present Illness Patient is a 39-year-old female with multiple comorbidities including fibromyalgia reflux pneumonia seizure disorder patient also have a urostomy and recently admitted to the hospital concerning for possible UTI however the patient did have 2 urine culture those were negative patient subsequently improved and was discharged home in stable condition patient has not been brought back to this facility as a transfer from [facility] with the patient presented with mental status changes on presentation at that facility patient was afebrile urinalysis did shows negative for nitrate trace leukocytes 5-10 WBC patient also have CT of the brain that was negative for acute renal process patient did have a white count of 21.3 creatinine 0.91 sodium of 151 liver isms mildly elevated patient has been admitted to hospital infectious he was consulted for further management of antibiotic therapy most information has been obtained from review the chart and nursing staff and the patient was pleasantly confused trying to get out of bed and cannot provide any history Review of Systems Positive points has been mentioned in HPI complete review could not be obtained because of his underlying mental status Past Medical History Past Medical History: Fibromyalgia, GERD/Reflux, Pneumonia, Seizure Disorder Additional Past Medical History / Comment(s): has seizures on a daily basis one or more a day, cHRONIC NECK/BACK PAIN, N/T FINGERS AND TOES, RAYNAUDS SYN. MENIERE'S,tinnitus, past uterine prolpase(sx) IBS, MUSCLE WEAKNESS, USES WALKER OR W/C History of Any Multi-Drug Resistant Organisms: ESBL, MRSA Year Discovered:: 01/06/24 - ESBL; 08/18/22 - MRSA MDRO Source:: URINE - ESBL; Urine - MRSA Past Surgical History: Bariatric Surgery, Cholecystectomy, Hysterectomy Additional Past Surgical History / Comment(s): EYE SX (MUSCLES), radha en y 2012 Past Anesthesia/Blood Transfusion Reactions: No Reported Reaction Additional Past Anesthesia/Blood Transfusion Reaction / Comm: clausterphobia Past Psychological History: Anxiety, Depression Smoking Status: Unknown if ever smoked Past Alcohol Use History: Unable to Obtain Past Drug Use History: Unable to Obtain, Marijuana - Past Family History Mother Family Medical History: Cancer Additional Family Medical History / Comment(s): TONGUE Father Family Medical History: Hypertension Medications and Allergies Home Medications Medication Instructions Recorded Confirmed Type Gabapentin [Neurontin] 1,200 mg PO TID 12/25/17 08/27/24 History QUEtiapine FUMARATE 50 mg PO HS 11/25/19 08/27/24 History Zolpidem Tartrate [Ambien Cr] 12.5 mg PO HS 11/25/19 08/27/24 History Fludrocortisone [Florinef] 0.1 mg PO BID 07/19/21 08/27/24 History Famotidine 40 mg PO HS 01/05/24 08/27/24 History Oxybutynin Chloride [oxyBUTYnin 10 mg PO DAILY 01/05/24 08/27/24 History chloride ER] Pyridoxine [Vitamin B-6] 50 mg PO DAILY 01/05/24 08/27/24 History Thiamine [Vitamin B-1] 100 mg PO DAILY 01/05/24 08/27/24 History Topiramate [Topamax] 50 mg PO TID 01/05/24 08/27/24 History Baclofen [Lioresal] 20 mg PO TID 08/20/24 08/27/24 History Cranberry/Vitamin C 60mg/250mg 1 tab PO DAILY 08/20/24 08/27/24 History HYDROcodone/APAP 7.5-325MG [[place] 1 tab PO Q6H PRN 08/20/24 08/27/24 History 7.5-325] Lactulose 10 gm PO TID PRN 08/20/24 08/27/24 History Multivit-Min/Iron/Folic/Lutein 1 tab PO DAILY 08/20/24 08/27/24 History [Centrum Silver Women Tablet] Phenytoin Sodium Extended 100 mg PO TID 08/20/24 08/27/24 History [Dilantin] Sodium Bicarbonate Tab 650 mg PO BID 08/20/24 08/27/24 History Venlafaxine HCl [Effexor] 75 mg PO TID 08/20/24 08/27/24 History allopurinoL [Zyloprim] 100 mg PO DAILY 08/20/24 08/27/24 History busPIRone HCl [Buspar] 5 mg PO TID 08/20/24 08/27/24 History Allergies Allergy/AdvReac Type Severity Reaction Status Date / Time levetiracetam [From [facility]] Allergy Rash/Hives Verified 08/27/24 17:07 Penicillins Allergy "STOPPED Verified 08/27/24 17:07 BREATHING" NSAIDS (Non-Steroidal AdvReac "MAY CAUSE Verified 08/27/24 17:07 Anti-Inflamma ULCERS R/T BARIATRIC SX" Physical Exam Vitals: Vital Signs Temp Pulse Resp BP Pulse Ox 08/27/24 15:26 119 H 16 108/77 100 08/27/24 14:30 97.1 F L 133 H 16 106/84 98 Intake and Output 08/27/24 08/27/24 08/27/24 06:59 14:59 22:59 Other: Weight 45.359 kg GENERAL DESCRIPTION: Middle-age male lying in bed, no distress. No tachypnea or accessory muscle of respiration use. HEENT: Shows Pallor , no scleral icterus. Oral mucous membrane is dry. NECK: Trachea central, no thyromegaly. LUNGS: Unlabored breathing. Clear to auscultation anteriorly. HEART: S1, S2, regular rate and rhythm. No loud murmur ABDOMEN: Soft, no tenderness , EXTREMITIES: No edema of feet. SKIN: Skin the sacral pressure ulcer but no surrounding redness or drainage NEUROLOGICAL: The patient is restless orientation could not determine Results CBC & Chem 7: 08/28/24 06:10 08/28/24 11:26 Labs: Abnormal Lab Results - Last 24 Hours (Table) 08/27/24 08/27/24 Range/Units 15:02 15:50 POC Glucose (mg/dL) 132 H (70-110) mg/dL Ur Barbiturates Screen Detected H (NotDetected) U Benzodiazepines Scrn Detected H (NotDetected) Assessment and Plan (1) Leukocytosis Current Visit: Yes Status: Acute Code(s): D72.829 - ELEVATED WHITE BLOOD CELL COUNT, UNSPECIFIED SNOMED Code(s): 459324850 (2) Penicillin allergy Current Visit: No Status: Acute Code(s): Z88.0 - ALLERGY STATUS TO PENICIL EUNICE SNOMED Code(s): 00080207 (3) Stage III pressure ulcer of sacral region Current Visit: No Status: Acute Code(s): L89.153 - PRESSURE ULCER OF SACRAL REGION, STAGE 3 SNOMED Code(s): 62922173488736 (4) UTI (urinary tract infection) Current Visit: No Status: Acute Code(s): N39.0 - URINARY TRACT INFECTION, SITE NOT SPECIFIED SNOMED Code(s): 26978052 Plan: 1patient presented to hospital with mental status changes which is likely multifactorial in this patient also have elevated white count underlying infectious etiology specially urinary source could not be entirely excluded as lungs were clear to auscultation abdomen was soft and no evidence of any cellulitis or joint swelling 2-penicillin allergy that will limit the number of anybody safe to use 3-did have a stage III sacral pressure ulcer but no cellulitis or recommend local wound care with Aquacel silver dressing 4-we will empirically add Invanz 1 g daily on the basis of last urine culture positive for ESBL Proteus while waiting for the workup to be completed We will follow on clinical condition and cultures to further adjust medication if needed Thank you for this consultation we will follow the patient along with you Dictation was produced using [employer] dictation software. please excuse any grammatical, word or spelling errors. Time with Patient: Greater than 30
[2024-08-27] MEDS: LORazepam 2 MG/ML INJ IV PRN (23:23)
[2024-08-27] MEDS ORDERED: VANCOMYCIN IV PER PHARMACY 1 EACH MISC MISCELLANE PRN (23:24)
[2024-08-27] MEDS: THIAMINE 100 MG/ML 2 ML VIAL IM STA (23:50)
[2024-08-28] MEDS ORDERED: CEFEPIME 2 GM in SODIUM CHLORIDE 0.9% 100 ML IVPB SCH
[2024-08-28] MEDS: ERTAPENEM 1 GM in SODIUM CHLORIDE 0.9% 50 ML IVPB SCH (00:16)
[2024-08-28] MEDS: ACETAMINOPHEN IV (For NPO) 1,000 MG in EMPTY BAG 1 BAG IVPB SCH (00:17)
[2024-08-28] MEDS: LORazepam 2 MG/ML INJ IV PRN ×2 (00:57→11:59)
[2024-08-28 01:20] LABS: African American GFR (CKD) >90 (>60 ml/min/1.73 sqM); Anion Gap 18 mmol/L; Blood Urea Nitrogen 34 mg/dL (7-17); Calcium 9.7 mg/dL (8.4-10.2); Carbon Dioxide 11 mmol/L (22-30); Chloride 121 mmol/L (98-107); Glucose 153 mg/dL (74-99); Non-African American GFR(CKD) >90 (>60 ml/min/1.73 sqM); Sodium 150 mmol/L (137-145)
[2024-08-28 01:21] LABS: Potassium 4.2 mmol/L (3.5-5.1)
[2024-08-28] MEDS: HALOPERIDOL LACTATE 5 MG/ML 1 ML VIAL IM STA ×2 (02:03→02:05)
[2024-08-28] MEDS: VANCOMYCIN 1,000 MG in SODIUM CHLORIDE 0.9% 250 ML IVPB ONE (03:24)
[2024-08-28 06:47] LABS: VBG PH 7.26 (7.31-7.41)
[2024-08-28 06:56] LABS: Anisocytosis Slight; HCT 39.6 % (34.0-46.0); HGB 11.9 gm/dL (11.4-16.0); Hypochromasia Moderate; MCH 28.7 pg (25.0-35.0); MCHC 30.1 g/dL (31.0-37.0); MCV 95.5 fL (80.0-100.0); Mean Platelet Volume 7.4; Platelet Count 336 k/uL (150-450); RBC 4.14 m/uL (3.80-5.40); RDW 16.3 % (11.5-15.5); WBC 18.7 k/uL (3.8-10.6)
[2024-08-28] MEDS: THIAMINE 100 MG TAB PO SCH (09:05)
[2024-08-28] MEDS: PYRIDOXINE 50 MG TAB PO SCH (09:05)
[2024-08-28] MEDS: MULTIVITAMINS, THERA 1 EACH TAB PO SCH (09:05)
[2024-08-28] MEDS: allopurinoL 100 MG TAB PO SCH (09:05)
[2024-08-28] MEDS: ENOXAPARIN 40 MG/0.4 ML SYRINGE SQ SCH (09:05)
[2024-08-28] MEDS: OXYBUTYNIN 10 MG TAB.ER.24 PO SCH (09:05)
[2024-08-28 10:27] LABS: ALT 46 U/L (8-44); AST 47 U/L (13-35); Albumin 4.5 g/dL (3.8-4.9); Alkaline Phosphatase 155 U/L (41-126); Blood Urea Nitrogen 31.9 mg/dL (9.0-27.0); Calcium 9.6 mg/dL (8.7-10.3); Carbon Dioxide 19.3 mmol/L (21.6-31.8); Chloride 122 mmol/L (96-109); Globulin 2.5 g/dL (1.6-3.3); Glucose 148 mg/dL (70-110); Magnesium 2.2 mg/dL (1.5-2.4); Potassium 4.2 mmol/L (3.5-5.5); Sodium 155 mmol/L (135-145); Total Bilirubin 0.2 mg/dL (0.3-1.2)
--- NOTE | 2024-08-28 10:40 | P.CONS ---
History of Present Illness - Reason for Consult Consult date: 08/28/24 wound care - History of Present Illness This is a 39-year-old patient with a stage III pressure ulcer being seen in the emergency room. Patient has an ulceration measuring is approximately 4 x 4 x 1 no tunneling noted no undermining noted. Wound edges are not attached to the wound base. Periwound does not show any redness or erythema. The wound bed has granulation slough and nonviable tissue present. Patient's past medical history significant for chronic debility wheelchair-bound chronic pressure ulcer over the coccyx chronic encephalopathy Connick Minard's disease fibromyalgia, epilepsy. Review Of Systems: Constitutional: No fever, no chills, no night sweats. No weight change. No weakness, fatigue or lethargy. No daytime sleepiness. Integumentary:reports wounds, no lesions. No rash or pruritus. No unusual bruising. No change in hair or nails. Physical exam: General Appearance: Alert, cooperative, no distress, appears stated age. Skin: See HPI all other Skin color, texture, tugor normal, no rashes or lesions. Neurologic: Alert oriented x3 Assessment: 1. Stage III pressure ulcer sacrum Plan: 1. Apply honey gel and bordered foam change Sunday. Turn patient every 2 hours. Thank you for the consultation any questions please contact the wound care center. DNP note has been reviewed and discussed with Dr. Samuels and the impression and plan of care has been directed as dictated. Past Medical History Past Medical History: Fibromyalgia, GERD/Reflux, Pneumonia, Seizure Disorder Additional Past Medical History / Comment(s): has seizures on a daily basis one or more a day, cHRONIC NECK/BACK PAIN, N/T FINGERS AND TOES, RAYNAUDS SYN. MENIERE'S,tinnitus, past uterine prolpase(sx) IBS, MUSCLE WEAKNESS, USES WALKER OR W/C History of Any Multi-Drug Resistant Organisms: ESBL, MRSA Year Discovered:: 01/06/24 - ESBL; 08/18/22 - MRSA MDRO Source:: URINE - ESBL; Urine - MRSA Past Surgical History: Bariatric Surgery, Cholecystectomy, Hysterectomy Additional Past Surgical History / Comment(s): EYE SX (MUSCLES), radha en y 2012 Past Anesthesia/Blood Transfusion Reactions: No Reported Reaction Additional Past Anesthesia/Blood Transfusion Reaction / Comm: clausterphobia Past Psychological History: Anxiety, Depression Smoking Status: Unknown if ever smoked Past Alcohol Use History: Unable to Obtain Past Drug Use History: Unable to Obtain, Marijuana - Past Family History Mother Family Medical History: Cancer Additional Family Medical History / Comment(s): TONGUE Father Family Medical History: Hypertension Medications and Allergies Home Medications Medication Instructions Recorded Confirmed Type Gabapentin [Neurontin] 1,200 mg PO TID 12/25/17 08/27/24 History QUEtiapine FUMARATE 50 mg PO HS 11/25/19 08/27/24 History Zolpidem Tartrate [Ambien Cr] 12.5 mg PO HS 11/25/19 08/27/24 History Fludrocortisone [Florinef] 0.1 mg PO BID 07/19/21 08/27/24 History Famotidine 40 mg PO HS 01/05/24 08/27/24 History Oxybutynin Chloride [oxyBUTYnin 10 mg PO DAILY 01/05/24 08/27/24 History chloride ER] Pyridoxine [Vitamin B-6] 50 mg PO DAILY 01/05/24 08/27/24 History Thiamine [Vitamin B-1] 100 mg PO DAILY 01/05/24 08/27/24 History Topiramate [Topamax] 50 mg PO TID 01/05/24 08/27/24 History Baclofen [Lioresal] 20 mg PO TID 08/20/24 08/27/24 History Cranberry/Vitamin C 60mg/250mg 1 tab PO DAILY 08/20/24 08/27/24 History HYDROcodone/APAP 7.5-325MG [[place] 1 tab PO Q6H PRN 08/20/24 08/27/24 History 7.5-325] Lactulose 10 gm PO TID PRN 08/20/24 08/27/24 History Multivit-Min/Iron/Folic/Lutein 1 tab PO DAILY 08/20/24 08/27/24 History [Centrum Silver Women Tablet] Phenytoin Sodium Extended 100 mg PO TID 08/20/24 08/27/24 History [Dilantin] Sodium Bicarbonate Tab 650 mg PO BID 08/20/24 08/27/24 History Venlafaxine HCl [Effexor] 75 mg PO TID 08/20/24 08/27/24 History allopurinoL [Zyloprim] 100 mg PO DAILY 08/20/24 08/27/24 History busPIRone HCl [Buspar] 5 mg PO TID 08/20/24 08/27/24 History Allergies Allergy/AdvReac Type Severity Reaction Status Date / Time levetiracetam [From [facility]] Allergy Rash/Hives Verified 08/27/24 17:07 Penicillins Allergy "STOPPED Verified 08/27/24 17:07 BREATHING" NSAIDS (Non-Steroidal AdvReac "MAY CAUSE Verified 08/27/24 17:07 Anti-Inflamma ULCERS R/T BARIATRIC SX" Physical Exam Vitals: Vital Signs Temp Pulse Resp BP Pulse Ox 08/28/24 09:06 130 H 18 124/93 96 08/28/24 06:00 97 08/28/24 05:13 109 H 18 113/83 08/28/24 04:54 97.9 F 08/28/24 02:10 111 H 141/117 99 08/28/24 02:00 115 H 131/90 08/28/24 01:00 120 H 132/95 08/27/24 22:19 155 H 08/27/24 20:04 137 H 125/89 97 08/27/24 18:49 121 H 16 107/87 99 08/27/24 15:26 119 H 16 108/77 100 08/27/24 14:30 97.1 F L 133 H 16 106/84 98 Results CBC & Chem 7: 08/28/24 06:10 08/28/24 00:07 Labs: Abnormal Lab Results - Last 24 Hours (Table) 08/27/24 08/27/24 08/27/24 Range/Units 15:02 15:50 16:32 WBC 21.3 H (3.8-10.6) k/uL MCHC 30.6 L (31.0-37.0) g/dL RDW 16.2 H (11.5-15.5) % VBG pH (7.31-7.41) VBG HCO3 (24-28) mmol/L Sodium (137-145) mmol/L Chloride (98-107) mmol/L Carbon Dioxide (22-30) mmol/L BUN (7-17) mg/dL Glucose (74-99) mg/dL POC Glucose (mg/dL) 132 H (70-110) mg/dL Magnesium (1.6-2.3) mg/dL AST (14-36) U/L ALT (4-34) U/L Alkaline Phosphatase (38-126) U/L Urine Protein (Negative) Urine Blood (Negative) Ur Leukocyte Esterase (Negative) Urine WBC (0-5) /hpf Urine Bacteria (None) /hpf Urine Mucus (None) /hpf Urine Yeast (Budding) (None) /hpf Ur Barbiturates Screen Detected H (NotDetected) U Benzodiazepines Scrn Detected H (NotDetected) 08/27/24 08/27/24 08/28/24 Range/Units 16:32 19:28 00:07 WBC (3.8-10.6) k/uL MCHC (31.0-37.0) g/dL RDW (11.5-15.5) % VBG pH (7.31-7.41) VBG HCO3 (24-28) mmol/L Sodium 151 H 150 H (137-145) mmol/L Chloride 117 H 121 H (98-107) mmol/L Carbon Dioxide 21 L 11 L (22-30) mmol/L BUN 39 H 34 H (7-17) mg/dL Glucose 122 H 153 H (74-99) mg/dL POC Glucose (mg/dL) (70-110) mg/dL Magnesium 2.4 H (1.6-2.3) mg/dL AST 46 H (14-36) U/L ALT 47 H (4-34) U/L Alkaline Phosphatase 164 H (38-126) U/L Urine Protein 1+ H (Negative) Urine Blood Small H (Negative) Ur Leukocyte Esterase Small H (Negative) Urine WBC 19 H (0-5) /hpf Urine Bacteria Rare H (None) /hpf Urine Mucus Rare H (None) /hpf Urine Yeast (Budding) Occasional H (None) /hpf Ur Barbiturates Screen (NotDetected) U Benzodiazepines Scrn (NotDetected) 08/28/24 08/28/24 Range/Units 06:10 06:10 WBC 18.7 H (3.8-10.6) k/uL MCHC 30.1 L (31.0-37.0) g/dL RDW 16.3 H (11.5-15.5) % VBG pH 7.26 L (7.31-7.41) VBG HCO3 20 L (24-28) mmol/L Sodium (137-145) mmol/L Chloride (98-107) mmol/L Carbon Dioxide (22-30) mmol/L BUN (7-17) mg/dL Glucose (74-99) mg/dL POC Glucose (mg/dL) (70-110) mg/dL Magnesium (1.6-2.3) mg/dL AST (14-36) U/L ALT (4-34) U/L Alkaline Phosphatase (38-126) U/L Urine Protein (Negative) Urine Blood (Negative) Ur Leukocyte Esterase (Negative) Urine WBC (0-5) /hpf Urine Bacteria (None) /hpf Urine Mucus (None) /hpf Urine Yeast (Budding) (None) /hpf Ur Barbiturates Screen (NotDetected) U Benzodiazepines Scrn (NotDetected) Assessment and Plan (1) Stage III pressure ulcer of sacral region Current Visit: No Status: Acute Code(s): L89.153 - PRESSURE ULCER OF SACRAL REGION, STAGE 3 SNOMED Code(s): 65392029066720
[2024-08-28] MEDS: DEXTROSE 5% IN WATER 1,000 ML IV SCH (12:11)
[2024-08-28 13:31] LABS: Potassium 3.6 mmol/L (3.5-5.1)
[2024-08-28 13:32] LABS: African American GFR (CKD) >90 (>60 ml/min/1.73 sqM); Anion Gap 12 mmol/L; Blood Urea Nitrogen 31 mg/dL (7-17); Calcium 9.8 mg/dL (8.4-10.2); Carbon Dioxide 17 mmol/L (22-30); Chloride 125 mmol/L (98-107); Glucose 160 mg/dL (74-99); Non-African American GFR(CKD) 78 (>60 ml/min/1.73 sqM); Sodium 154 mmol/L (137-145)
[2024-08-28] MEDS: HYDROmorphone 0.5 MG/0.5 ML SYRINGE IVP PRN (13:38)
--- NOTE | 2024-08-28 14:08 | P.CNNES ---
History of Present Illness Consult date: 08/28/24 Requesting physician: Roman Bullock Reason for Consult: ams History of Present Illness: This is a 39-year-old young woman was transferred from outside hospital for altered mental status. It seems patient was transferred from [facility] for confusion. History is obtained from medical record. It seems that the patient has history of Warnicke encephalopathy, Mnire's disease, epilepsy, she is wheelchair-bound, chronic pressure ulcer, urinary UTI and chronic indwelling suprapubic catheter, anxiety depression. Seems she was recently hospitalized at our facility from August 20, 2024 to 24 August 2024 for secondary acute metabolic encephalopathy secondary to hypernatremia, UTI and COVID 19. After improvement she was discharged home into her caregiver her . According to the nurse patient is confused but she is biting other people that comes near to her. She has bilateral wrist restraints. Some of the workup during this hospital visit consisted of: Patient is afebrile White blood cell is 21,000 and repeat is 18,000 Sodium is 151 and got as high as 155. Magnesium is 2.4 and repeat is normal AST is 46 ALT is 47 Ammonia level is less than 9. Serum glucose on initial presentation was 121 most recent 1 is 160 Urinalysis is leukocyte Estrace small, urine white blood cells 19. Urine drug screen is positive for benzo as well as barbiturates. CT of the head is reported as no acute intracranial process. I personally reviewed the CT and agree with the report. Review of Systems Limited. Past Medical History Past Medical History: Fibromyalgia, GERD/Reflux, Pneumonia, Seizure Disorder Additional Past Medical History / Comment(s): has seizures on a daily basis one or more a day, cHRONIC NECK/BACK PAIN, N/T FINGERS AND TOES, RAYNAUDS SYN. MENIERE'S,tinnitus, past uterine prolpase(sx) IBS, MUSCLE WEAKNESS, USES WALKER OR W/C History of Any Multi-Drug Resistant Organisms: ESBL, MRSA Date of last positivie culture/infection: 01/06/24 - ESBL; 08/18/22 - MRSA MDRO Source:: URINE - ESBL; Urine - MRSA Past Surgical History: Bariatric Surgery, Cholecystectomy, Hysterectomy Additional Past Surgical History / Comment(s): EYE SX (MUSCLES), radha en y 2012 Past Anesthesia/Blood Transfusion Reactions: No Reported Reaction Additional Past Anesthesia/Blood Transfusion Reaction / Comment(s): clausterphobia Past Psychological History: Anxiety, Depression Smoking Status: Unknown if ever smoked Past Alcohol Use History: Unable to Obtain Past Drug Use History: Unable to Obtain, Marijuana - Past Family History Mother Family Medical History: Cancer Additional Family Medical History / Comment(s): TONGUE Father Family Medical History: Hypertension Medications and Allergies Home Medications Medication Instructions Recorded Confirmed Type Gabapentin [Neurontin] 1,200 mg PO TID 12/25/17 08/27/24 History QUEtiapine FUMARATE 50 mg PO HS 11/25/19 08/27/24 History Zolpidem Tartrate [Ambien Cr] 12.5 mg PO HS 11/25/19 08/27/24 History Fludrocortisone [Florinef] 0.1 mg PO BID 07/19/21 08/27/24 History Famotidine 40 mg PO HS 01/05/24 08/27/24 History Oxybutynin Chloride [oxyBUTYnin 10 mg PO DAILY 01/05/24 08/27/24 History chloride ER] Pyridoxine [Vitamin B-6] 50 mg PO DAILY 01/05/24 08/27/24 History Thiamine [Vitamin B-1] 100 mg PO DAILY 01/05/24 08/27/24 History Topiramate [Topamax] 50 mg PO TID 01/05/24 08/27/24 History Baclofen [Lioresal] 20 mg PO TID 08/20/24 08/27/24 History Cranberry/Vitamin C 60mg/250mg 1 tab PO DAILY 08/20/24 08/27/24 History HYDROcodone/APAP 7.5-325MG [[place] 1 tab PO Q6H PRN 08/20/24 08/27/24 History 7.5-325] Lactulose 10 gm PO TID PRN 08/20/24 08/27/24 History Multivit-Min/Iron/Folic/Lutein 1 tab PO DAILY 08/20/24 08/27/24 History [Centrum Silver Women Tablet] Phenytoin Sodium Extended 100 mg PO TID 08/20/24 08/27/24 History [Dilantin] Sodium Bicarbonate Tab 650 mg PO BID 08/20/24 08/27/24 History Venlafaxine HCl [Effexor] 75 mg PO TID 08/20/24 08/27/24 History allopurinoL [Zyloprim] 100 mg PO DAILY 08/20/24 08/27/24 History busPIRone HCl [Buspar] 5 mg PO TID 08/20/24 08/27/24 History Allergies Allergy/AdvReac Type Severity Reaction Status Date / Time levetiracetam [From [facility]] Allergy Rash/Hives Verified 08/27/24 17:07 Penicillins Allergy "STOPPED Verified 08/27/24 17:07 BREATHING" NSAIDS (Non-Steroidal AdvReac "MAY CAUSE Verified 08/27/24 17:07 Anti-Inflamma ULCERS R/T BARIATRIC SX" Physical Examination - Vital Signs Vital Signs: Vital Signs Temp Pulse Resp BP Pulse Ox 08/28/24 13:33 100.1 F H 125 H 18 132/90 96 08/28/24 12:48 100.7 F H 140 H 20 151/99 95 08/28/24 12:00 135 H 18 131/103 96 08/28/24 10:24 151 H 18 96 08/28/24 09:06 130 H 18 124/93 96 08/28/24 06:00 97 08/28/24 05:13 109 H 18 113/83 08/28/24 04:54 97.9 F 08/28/24 02:10 111 H 141/117 99 08/28/24 02:00 115 H 131/90 08/28/24 01:00 120 H 132/95 08/27/24 22:19 155 H 08/27/24 20:04 137 H 125/89 97 08/27/24 18:49 121 H 16 107/87 99 08/27/24 15:26 119 H 16 108/77 100 08/27/24 14:30 97.1 F L 133 H 16 106/84 98 General: Patient does not appear in acute distress Neuro: very limited Patient was sleeping and upon trying to wake neuro she would sit up verbalizing not following commands then would lie back to bed and she did that twice. Not cooperating for exam. Results - Laboratory Findings CBC and BMP: 08/28/24 06:10 08/28/24 11:26 Abnormal Lab Findings: Abnormal Labs 08/27/24 08/27/24 08/27/24 15:02 15:50 16:32 WBC 21.3 H MCHC 30.6 L RDW 16.2 H VBG pH VBG HCO3 Sodium Chloride Carbon Dioxide Anion Gap BUN BUN/Creatinine Ratio Glucose POC Glucose (mg/dL) 132 H Magnesium Total Bilirubin AST ALT Alkaline Phosphatase Urine Protein Urine Blood Ur Leukocyte Esterase Urine WBC Urine Bacteria Urine Mucus Urine Yeast (Budding) Ur Barbiturates Screen Detected H U Benzodiazepines Scrn Detected H 08/27/24 08/27/24 08/28/24 16:32 19:28 00:07 WBC MCHC RDW VBG pH VBG HCO3 Sodium 151 H 150 H Chloride 117 H 121 H Carbon Dioxide 21 L 11 L Anion Gap BUN 39 H 34 H BUN/Creatinine Ratio Glucose 122 H 153 H POC Glucose (mg/dL) Magnesium 2.4 H Total Bilirubin AST 46 H ALT 47 H Alkaline Phosphatase 164 H Urine Protein 1+ H Urine Blood Small H Ur Leukocyte Esterase Small H Urine WBC 19 H Urine Bacteria Rare H Urine Mucus Rare H Urine Yeast (Budding) Occasional H Ur Barbiturates Screen U Benzodiazepines Scrn 08/28/24 08/28/24 08/28/24 06:10 06:10 06:10 WBC 18.7 H MCHC 30.1 L RDW 16.3 H VBG pH 7.26 L VBG HCO3 20 L Sodium 155 H Chloride 122 H Carbon Dioxide 19.3 L Anion Gap 13.70 H BUN 31.9 H BUN/Creatinine Ratio 31.90 H Glucose 148 H POC Glucose (mg/dL) Magnesium Total Bilirubin 0.2 L AST 47 H ALT 46 H Alkaline Phosphatase 155 H Urine Protein Urine Blood Ur Leukocyte Esterase Urine WBC Urine Bacteria Urine Mucus Urine Yeast (Budding) Ur Barbiturates Screen U Benzodiazepines Scrn 08/28/24 11:26 WBC MCHC RDW VBG pH VBG HCO3 Sodium 154 H Chloride 125 H Carbon Dioxide 17 L Anion Gap BUN 31 H BUN/Creatinine Ratio Glucose 160 H POC Glucose (mg/dL) Magnesium Total Bilirubin AST ALT Alkaline Phosphatase Urine Protein Urine Blood Ur Leukocyte Esterase Urine WBC Urine Bacteria Urine Mucus Urine Yeast (Budding) Ur Barbiturates Screen U Benzodiazepines Scrn Assessment and Plan Assessment: This is a 39-year-old woman who presents from outside hospital because of alt ered mental status. It seems that she had recent hospitalization in our facility in the beginning of August and she had acute metabolic encephalopathy secondary to hypernatremia, UTI and COVID-19 infection and was discharged home. She has hypernatremia leukocytosis. She is afebrile so far Altered mental status seems due to metabolic encephalopathy. Cannot rule out underlying infection. CT of the head is unremarkable. Hypernatremia Leukocytosis possible due to dehydration but cannot rule out underlying infection History of epilepsy History of Warnicke encephalopathy History of Mnire's disease History of Raynaud's disease History of recurrent UTI History of recent COVID-19 infection History of GERD Wheelchair-bound History of chronic indwelling suprapubic catheter History of anxiety History of depression Plan: I ordered a routine EEG but will be difficult to obtain since patient's lack of cooperation and according to the nurse she is biting staff members saw if unable to be performed today will obtain it tomorrow ID team is on board. She is on vancomycin. Consider lumbar puncture iff unknown source of infection I spoke with the primary attending and he feels leukocytosis is likely due to dehydration. Nephrology is on board Wound team is consulted Will defer the rest of the medical management to primary and other specialist Plan discussed with the patient's nurse as well as the primary attending Thank you for the consultation. Time with Patient: Greater than 30
--- NOTE | 2024-08-28 15:21 | P.PN ---
Subjective Progress Note Date: 08/28/24 Principal diagnosis: Reason for follow-up is fever leukocytosis Patient is a 39-year-old female with multiple comorbidities including fibromyalgia reflux pneumonia seizure disorder patient also have a urostomy and recently admitted to the hospital concerning for possible UTI has been brought back to the hospital concerning for mental status changes he did have elevated white count subsequent also low-grade fever. On today's evaluation that is 08/28/2024 patient did have a temperature of 100.7 F this afternoon patient remains to be restless currently in restraints unable to provide any history she is on room air no vomiting or diarrhea has been reported by the sitter at the bedside. Patient did have a white count is down to 18.7 creatinine 0.93 urine was mildly positive Objective - Vital Signs Vital signs: Vital Signs Temp 97.9 F 08/28/24 04:54 Pulse 151 H 08/28/24 10:24 Resp 18 08/28/24 10:24 BP 124/93 08/28/24 09:06 Pulse Ox 96 08/28/24 10:24 FiO2 Intake & Output 08/27/24 08/28/24 08/28/24 18:59 06:59 18:59 Weight 45.359 kg - Exam GENERAL DESCRIPTION: Middle aged female lying in bed in no distress RESPIRATORY SYSTEM: Unlabored breathing , decreased breath sounds at bases HEART: S1 S2 regular rate and rhythm , ABDOMEN: Soft , no tenderness EXTREMITIES: No edema feet - Labs CBC & Chem 7: 08/29/24 06:41 08/29/24 12:37 Labs: Abnormal Lab Results - Last 24 Hours (Table) 08/27/24 08/27/24 08/27/24 Range/Units 15:02 15:50 16:32 WBC 21.3 H (3.8-10.6) k/uL MCHC 30.6 L (31.0-37.0) g/dL RDW 16.2 H (11.5-15.5) % VBG pH (7.31-7.41) VBG HCO3 (24-28) mmol/L Sodium (137-145) mmol/L Chloride (98-107) mmol/L Carbon Dioxide (22-30) mmol/L Anion Gap (4.00-12.00) mmol/L BUN (7-17) mg/dL BUN/Creatinine Ratio (12.00-20.00) Ratio Glucose (74-99) mg/dL POC Glucose (mg/dL) 132 H (70-110) mg/dL Magnesium (1.6-2.3) mg/dL Total Bilirubin (0.3-1.2) mg/dL AST (14-36) U/L ALT (4-34) U/L Alkaline Phosphatase (38-126) U/L Urine Protein (Negative) Urine Blood (Negative) Ur Leukocyte Esterase (Negative) Urine WBC (0-5) /hpf Urine Bacteria (None) /hpf Urine Mucus (None) /hpf Urine Yeast (Budding) (None) /hpf Ur Barbiturates Screen Detected H (NotDetected) U Benzodiazepines Scrn Detected H (NotDetected) 08/27/24 08/27/24 08/28/24 Range/Units 16:32 19:28 00:07 WBC (3.8-10.6) k/uL MCHC (31.0-37.0) g/dL RDW (11.5-15.5) % VBG pH (7.31-7.41) VBG HCO3 (24-28) mmol/L Sodium 151 H 150 H (137-145) mmol/L Chloride 117 H 121 H (98-107) mmol/L Carbon Dioxide 21 L 11 L (22-30) mmol/L Anion Gap (4.00-12.00) mmol/L BUN 39 H 34 H (7-17) mg/dL BUN/Creatinine Ratio (12.00-20.00) Ratio Glucose 122 H 153 H (74-99) mg/dL POC Glucose (mg/dL) (70-110) mg/dL Magnesium 2.4 H (1.6-2.3) mg/dL Total Bilirubin (0.3-1.2) mg/dL AST 46 H (14-36) U/L ALT 47 H (4-34) U/L Alkaline Phosphatase 164 H (38-126) U/L Urine Protein 1+ H (Negative) Urine Blood Small H (Negative) Ur Leukocyte Esterase Small H (Negative) Urine WBC 19 H (0-5) /hpf Urine Bacteria Rare H (None) /hpf Urine Mucus Rare H (None) /hpf Urine Yeast (Budding) Occasional H (None) /hpf Ur Barbiturates Screen (NotDetected) U Benzodiazepines Scrn (NotDetected) 08/28/24 08/28/24 08/28/24 Range/Units 06:10 06:10 06:10 WBC 18.7 H (3.8-10.6) k/uL MCHC 30.1 L (31.0-37.0) g/dL RDW 16.3 H (11.5-15.5) % VBG pH 7.26 L (7.31-7.41) VBG HCO3 20 L (24-28) mmol/L Sodium 155 H (137-145) mmol/L Chloride 122 H (98-107) mmol/L Carbon Dioxide 19.3 L (22-30) mmol/L Anion Gap 13.70 H (4.00-12.00) mmol/L BUN 31.9 H (7-17) mg/dL BUN/Creatinine Ratio 31.90 H (12.00-20.00) Ratio Glucose 148 H (74-99) mg/dL POC Glucose (mg/dL) (70-110) mg/dL Magnesium (1.6-2.3) mg/dL Total Bilirubin 0.2 L (0.3-1.2) mg/dL AST 47 H (14-36) U/L ALT 46 H (4-34) U/L Alkaline Phosphatase 155 H (38-126) U/L Urine Protein (Negative) Urine Blood (Negative) Ur Leukocyte Esterase (Negative) Urine WBC (0-5) /hpf Urine Bacteria (None) /hpf Urine Mucus (None) /hpf Urine Yeast (Budding) (None) /hpf Ur Barbiturates Screen (NotDetected) U Benzodiazepines Scrn (NotDetected) Assessment and Plan (1) Leukocytosis Current Visit: Yes Status: Acute Code(s): D72.829 - ELEVATED WHITE BLOOD CELL COUNT, UNSPECIFIED SNOMED Code(s): 056731767 (2) Penicillin allergy Current Visit: No Status: Acute Code(s): Z88.0 - ALLERGY STATUS TO PENICILLIN SNOMED Code(s): 11081363 (3) Stage III pressure ulcer of sacral region Current Visit: No Status: Acute Code(s): L89.153 - PRESSURE ULCER OF SACRAL REGION, STAGE 3 SNOMED Code(s): 01391826764168 (4) UTI (urinary tract infection) Current Visit: No Status: Acute Code(s): N39.0 - URINARY TRACT INFECTION, SITE NOT SPECIFIED SNOMED Code(s): 13054569 Plan: 1patient presented to hospital with mental status changes which is likely multifactorial in this patient also have elevated white count underlying infectious etiology specially urinary source could not be entirely excluded as lungs were clear to auscultation abdomen was soft and no evidence of any cellulitis or joint swelling 2-penicillin allergy that will limit the number of anybody safe to use 3-did have a stage III sacral pressure ulcer but no cellulitis wound care has been consulted follow the recommendation 4-patient is currently on Invanz vancomycin has been added keeping in mind significant mental status change would benefit from LP to rule out WHARFMASTER infection neurology is on the case Dictation was produced using [employer] dictation software. please excuse any grammatical, word or spelling errors. Time with Patient: Less than 30
--- NOTE | 2024-08-28 15:27 | P.PN ---
Subjective Progress Note Date: 08/28/24 Subjective: Patient seen and examined at bedside. Has a sitter at bedside. Continues to be confused and agitated. In bed restraints. Pertinent positives and negatives as discussed above, a complete review of systems was performed and all other systems are negative. Vitals Signs Reviewed. General: Nontoxic, no distress, appears at stated age, chronically ill- appearing, suprapubic catheter in place Derm: Warm, dry, coccyx pressure ulcer not observed, multiple bruises on the arms with scrapes and abrasions noted on right posterior ribs and back Head: Atraumatic, normocephalic, symmetric Eyes: EOMI, no lid lag, anicteric sclera Mouth: No lip lesion, mucus membranes moist Cardiovascular: S1S2 reg, no murmur Lungs: CTA bilateral, no rhonchi, no rales, no accessory muscle use Abdominal: Soft, nontender to palpation, no guarding, no appreciable organomegaly Ext: No gross muscle atrophy, no edema, no contractures Neuro: Moving all extremities, no contractures, no edema, not following commands but withdraws to pain Psych: Nonverbal Data Reviewed Today: Pertinent Labs: WBC 18.7, sodium 155, creatinine 1, blood sugars 148, total bili 0.2, AST 47, ALT 46, ALP 155 Imaging: No new imaging Assessment and Plan: Acute metabolic versus septic encephalopathy Possible encephalitis Hypernatremia Dehydration High anion gap metabolic acidosis Leukocytosis History of Wernicke's encephalopathy -Sitter at bedside, patient in bed restraints -Neurochecks every 4 hours -Seizure, fall, and aspiration precautions to be maintained. -Close monitoring of vital signs with continuous telemetry monitoring. -Due to persistent sinus tachycardia, worsening hyponatremia, switched fluids to D5 water at 75 cc an hour, also given 1 L of LR bolus nephrology also consulted -Discussed with neurology, will likely metabolic encephalopathy given hyponatremia, however cannot rule out infectious cause, may benefit from LP if patient is cooperative -ID following, patient is empirically on IV vancomycin, monitor for renal toxicity, also on ertapenem 1 g IV daily given prior history of resistance Prote us in urine -Thiamine 100mg daily continue -Blood cultures pending -Encephalopathy may be pain mediated, will start on Dilaudid 0.5 IV push every 4 hours, On IV Tylenol Pt status post recent treatment for UTI with chronic suprapubic catheter and has hx of recurrent UTI's Neurogenic bladder with chronic urostomy/suprapubic catheter -Urine cultures x 2 completed 08/20/2024 and 08/22/2024 were negative showing no growth. -Indwelling suprapubic catheter present on admission, also has a urostomy -Continue on ertapenem as above Epilepsy -Continue home medication regimen with Topamax 50 mg 3 times daily and Dilantin 100 mg 3 times daily. -Dilantin subtherapeutic, likely because patient was not taking at home Pressure ulcer to sacrum/coccyx, present on admission -Patient with stage II-III pressure ulcer to coccyx. Wound care following -Turn every 2 hours and offload from coccyx. -Previously grown MRSA, patient already on IV vancomycin Chronic: Fibromyalgia Anxiety/depression History of alcohol dependence Gout GERD Adrenal insufficiency DVT ppx: Lovenox Code status: Full code Anticipated discharge place: Pending clinical course Anticipated discharge time: Pending clinical course Objective - Vital Signs Vital signs: Vital Signs Temp 98.8 F 08/28/24 14:44 Pulse 140 H 08/28/24 14:44 Resp 18 08/28/24 14:44 BP 128/94 08/28/24 14:44 Pulse Ox 95 08/28/24 14:44 FiO2 Intake & Output 08/27/24 08/28/24 08/28/24 18:59 06:59 18:59 Intake Total 450 Output Total 950 Balance -500 Weight 45.359 kg Intake: Intake, IV Titration 450 Amount ACETAMINOPHEN IV (For NPO 100 ) 1,000 mg In Empty Bag 1 bag @ 400 mls/hr IVPB Q6HR JACQUELIN Rx#:[id number] Dextrose 5%-0.45% NaCl 1, 300 000 ml @ 75 mls/hr IV . [id number] JACQUELIN Rx#:[id number] Ertapenem 1 gm In Sodium 50 Chloride 0.9% 50 ml @ 100 mls/hr IVPB DAILY JACQUELIN Rx #:[id number] Sodium Chloride 0.9% 1, 0 000 ml @ 20 mls/hr IV . Q24H JACQUELIN Rx#:[id number] Output: Urine 950 - Labs CBC & Chem 7: 08/28/24 06:10 08/28/24 11:26 Labs: Abnormal Lab Results - Last 24 Hours (Table) 08/27/24 08/27/24 08/27/24 Range/Units 15:50 16:32 16:32 WBC 21.3 H (3.8-10.6) k/uL MCHC 30.6 L (31.0-37.0) g/dL RDW 16.2 H (11.5-15.5) % VBG pH (7.31-7.41) VBG HCO3 (24-28) mmol/L Sodium 151 H (137-145) mmol/L Chloride 117 H (98-107) mmol/L Carbon Dioxide 21 L (22-30) mmol/L Anion Gap (4.00-12.00) mmol/L BUN 39 H (7-17) mg/dL BUN/Creatinine Ratio (12.00-20.00) Ratio Glucose 122 H (74-99) mg/dL Magnesium 2.4 H (1.6-2.3) mg/dL Total Bilirubin (0.3-1.2) mg/dL AST 46 H (14-36) U/L ALT 47 H (4-34) U/L Alkaline Phosphatase 164 H (38-126) U/L Urine Protein (Negative) Urine Blood (Negative) Ur Leukocyte Esterase (Negative) Urine WBC (0-5) /hpf Urine Bacteria (None) /hpf Urine Mucus (None) /hpf Urine Yeast (Budding) (None) /hpf Ur Barbiturates Screen Detected H (NotDetected) U Benzodiazepines Scrn Detected H (NotDetected) 08/27/24 08/28/24 08/28/24 Range/Units 19:28 00:07 06:10 WBC (3.8-10.6) k/uL MCHC (31.0-37.0) g/dL RDW (11.5-15.5) % VBG pH 7.26 L (7.31-7.41) VBG HCO3 20 L (24-28) mmol/L Sodium 150 H (137-145) mmol/L Chloride 121 H (98-107) mmol/L Carbon Dioxide 11 L (22-30) mmol/L Anion Gap (4.00-12.00) mmol/L BUN 34 H (7-17) mg/dL BUN/Creatinine Ratio (12.00-20.00) Ratio Glucose 153 H (74-99) mg/dL Magnesium (1.6-2.3) mg/dL Total Bilirubin (0.3-1.2) mg/dL AST (14-36) U/L ALT (4-34) U/L Alkaline Phosphatase (38-126) U/L Urine Protein 1+ H (Negative) Urine Blood Small H (Negative) Ur Leukocyte Esterase Small H (Negative) Urine WBC 19 H (0-5) /hpf Urine Bacteria Rare H (None) /hpf Urine Mucus Rare H (None) /hpf Urine Yeast (Budding) Occasional H (None) /hpf Ur Barbiturates Screen (NotDetected) U Benzodiazepines Scrn (NotDetected) 08/28/24 08/28/24 08/28/24 Range/Units 06:10 06:10 11:26 WBC 18.7 H (3.8-10.6) k/uL MCHC 30.1 L (31.0-37.0) g/dL RDW 16.3 H (11.5-15.5) % VBG pH (7.31-7.41) VBG HCO3 (24-28) mmol/L Sodium 155 H 154 H (137-145) mmol/L Chloride 122 H 125 H (98-107) mmol/L Carbon Dioxide 19.3 L 17 L (22-30) mmol/L Anion Gap 13.70 H (4.00-12.00) mmol/L BUN 31.9 H 31 H (7-17) mg/dL BUN/Creatinine Ratio 31.90 H (12.00-20.00) Ratio Glucose 148 H 160 H (74-99) mg/dL Magnesium (1.6-2.3) mg/dL Total Bilirubin 0.2 L (0.3-1.2) mg/dL AST 47 H (14-36) U/L ALT 46 H (4-34) U/L Alkaline Phosphatase 155 H (38-126) U/L Urine Protein (Negative) Urine Blood (Negative) Ur Leukocyte Esterase (Negative) Urine WBC (0-5) /hpf Urine Bacteria (None) /hpf Urine Mucus (None) /hpf Urine Yeast (Budding) (None) /hpf Ur Barbiturates Screen (NotDetected) U Benzodiazepines Scrn (NotDetected)
[2024-08-28] MEDS: LACTATED RINGERS 1,000 ML IV ONE (15:41)
[2024-08-28] MEDS: VANCOMYCIN 750 MG in SODIUM CHLORIDE 0.9% 250 ML IVPB SCH (16:07)
[2024-08-28] MEDS: OLANZapine 10 MG VIAL IM STA (17:16)
[2024-08-28] MEDS: ACYCLOVIR SODIUM 500 MG in SODIUM CHLORIDE 0.9% 100 ML IVPB SCH (17:35)
[2024-08-28] MEDS ORDERED: VANCOMYCIN 1,000 MG in SODIUM CHLORIDE 0.9% 250 ML IVPB SCH (20:00)
[2024-08-28 20:49] LABS: African American GFR (CKD) 88 (>60 ml/min/1.73 sqM); Anion Gap 11 mmol/L; Blood Urea Nitrogen 25 mg/dL (7-17); Calcium 8.9 mg/dL (8.4-10.2); Carbon Dioxide 17 mmol/L (22-30); Chloride 120 mmol/L (98-107); Glucose 126 mg/dL (74-99); Non-African American GFR(CKD) 76 (>60 ml/min/1.73 sqM); Potassium 3.2 mmol/L (3.5-5.1); Sodium 148 mmol/L (137-145)
[2024-08-28] MEDS: POTASSIUM CHLORIDE ER 20 MEQ TAB.ER PO STA (21:46)
[2024-08-28] MEDS: OLANZapine 10 MG VIAL IM PRN (21:58)
[2024-08-28] MEDS ORDERED: LORazepam 1 MG/0.5 ML VIAL IV PRN ×3 (23:27→23:29)
[2024-08-28] MEDS: LORazepam 1 MG/0.5 ML VIAL IV PRN (23:38)
[2024-08-29 07:34] LABS: Influenza A Not Detected (Not Detectd); Influenza B Not Detected (Not Detectd); RSV Not Detected (Not Detectd)
[2024-08-29 07:48] LABS: Anisocytosis Slight; Basophils % (A) 0 %; Eosinophils # (A) 0.1 k/uL (0-0.7); Eosinophils % (A) 1 %; HCT 31.3 % (34.0-46.0); Hypochromasia Marked; Lymphocytes # (A) 1.4 k/uL (1.0-4.8); Lymphocytes % (A) 15 %; MCH 29.6 pg (25.0-35.0); MCHC 30.5 g/dL (31.0-37.0); Mean Platelet Volume 7.5; Monocytes # (A) 0.5 k/uL (0-1.0); Monocytes % (A) 5 %; Neutrophils # (A) 7.2 k/uL (1.3-7.7); Neutrophils % (A) 77 %; Platelet Count 208 k/uL (150-450); RBC 3.23 m/uL (3.80-5.40); RDW 16.2 % (11.5-15.5); WBC 9.4 k/uL (3.8-10.6)
[2024-08-29 07:56] LABS: ALT 54 U/L (4-34); AST 52 U/L (14-36); African American GFR (CKD) >90 (>60 ml/min/1.73 sqM); Albumin 3.4 g/dL (3.5-5.0); Alkaline Phosphatase 117 U/L (38-126); Anion Gap 8 mmol/L; Blood Urea Nitrogen 22 mg/dL (7-17); Carbon Dioxide 17 mmol/L (22-30); Chloride 124 mmol/L (98-107); Glucose 104 mg/dL (74-99); Magnesium 2.1 mg/dL (1.6-2.3); Non-African American GFR(CKD) 88 (>60 ml/min/1.73 sqM); Potassium 3.4 mmol/L (3.5-5.1); Sodium 149 mmol/L (137-145); Total Bilirubin 0.5 mg/dL (0.2-1.3); Total Protein 5.8 g/dL (6.3-8.2)
[2024-08-29 07:59] LABS: HGB 9.6 gm/dL (11.4-16.0)
[2024-08-29] MEDS: POTASSIUM CHLORIDE ER 20 MEQ TAB.ER PO STA (08:26)
--- NOTE | 2024-08-29 10:17 | P.NPCON ---
History of Present Illness - Reason for Consult hypernatremia - History of Present Illness Reason for consultation: Hyponatremia History of present is: Patient is a 39-year-old female seen in renal consultation for hypernatremia. Sodium level was 151 on admission and peaked at 155 yesterday morning and is 149 this morning. Patient is a poor historian. She was transferred from another facility due to confusion and altered mental status. She was noted to have aggressive behavior. She is currently sleeping. She did receive Ativan. This concern for encephalitis and she is currently receiving IV acyclovir as well as IV antibiotics. Patient has history of adrenal insufficiency and is maintained on Florinef outpatient. She is currently receiving D5W at 60 cc an hour. No history of diabetes. No edema. Has a urostomy. Nonoliguric. Vital signs are stable. General: No acute distress. HEENT: Head exam is unremarkable. LUNGS: No audible rhonchi or wheezes. HEART: Rate and Rhythm are regular. ABDOMEN: No distention. Urostomy noted. EXTREMITITES: No edema. Past Medical History Past Medical History: Fibromyalgia, GERD/Reflux, Pneumonia, Seizure Disorder Additional Past Medical History / Comment(s): has seizures on a daily basis one or more a day, cHRONIC NECK/BACK PAIN, N/T FINGERS AND TOES, RAYNAUDS SYN. MENIERE'S,tinnitus, past uterine prolpase(sx) IBS, MUSCLE WEAKNESS, USES WALKER OR W/C History of Any Multi-Drug Resistant Organisms: ESBL, MRSA Date of last positivie culture/infection: 01/06/24 - ESBL; 08/18/22 - MRSA MDRO Source:: URINE - ESBL; Urine - MRSA Past Surgical History: Bariatric Surgery, Cholecystectomy, Hysterectomy Additional Past Surgical History / Comment(s): EYE SX (MUSCLES), radha en y 2012 Past Anesthesia/Blood Transfusion Reactions: No Reported Reaction Additional Past Anesthesia/Blood Transfusion Reaction / Comment(s): clausterphobia Past Psychological History: Anxiety, Depression Smoking Status: Unknown if ever smoked Past Alcohol Use History: Unable to Obtain Additional Past Alcohol Use History / Comment(s): started smoking age 13- has quit off and on but currently smokes 1/2 ppd. Past Drug Use History: Unable to Obtain, Marijuana Additional Drug Use History / Comment(s): medical marijuana carrier, has not smoked kentrell rubi in a month - Past Family History Mother Family Medical History: Cancer Additional Family Medical History / Comment(s): TONGUE Father Family Medical History: Hypertension Medications and Allergies Home Medications Medication Instructions Recorded Confirmed Type Gabapentin [Neurontin] 1,200 mg PO TID 12/25/17 08/27/24 History QUEtiapine FUMARATE 50 mg PO HS 11/25/19 08/27/24 History Zolpidem Tartrate [Ambien Cr] 12.5 mg PO HS 11/25/19 08/27/24 History Fludrocortisone [Florinef] 0.1 mg PO BID 07/19/21 08/27/24 History Famotidine 40 mg PO HS 01/05/24 08/27/24 History Oxybutynin Chloride [oxyBUTYnin 10 mg PO DAILY 01/05/24 08/27/24 History chloride ER] Pyridoxine [Vitamin B-6] 50 mg PO DAILY 01/05/24 08/27/24 History Thiamine [Vitamin B-1] 100 mg PO DAILY 01/05/24 08/27/24 History Topiramate [Topamax] 50 mg PO TID 01/05/24 08/27/24 History Baclofen [Lioresal] 20 mg PO TID 08/20/24 08/27/24 History Cranberry/Vitamin C 60mg/250mg 1 tab PO DAILY 08/20/24 08/27/24 History HYDROcodone/APAP 7.5-325MG [[place] 1 tab PO Q6H PRN 08/20/24 08/27/24 History 7.5-325] Lactulose 10 gm PO TID PRN 08/20/24 08/27/24 History Multivit-Min/Iron/Folic/Lutein 1 tab PO DAILY 08/20/24 08/27/24 History [Centrum Silver Women Tablet] Phenytoin Sodium Extended 100 mg PO TID 08/20/24 08/27/24 History [Dilantin] Sodium Bicarbonate Tab 650 mg PO BID 08/20/24 08/27/24 History Venlafaxine HCl [Effexor] 75 mg PO TID 08/20/24 08/27/24 History allopurinoL [Zyloprim] 100 mg PO DAILY 08/20/24 08/27/24 History busPIRone HCl [Buspar] 5 mg PO TID 08/20/24 08/27/24 History Allergies Allergy/AdvReac Type Severity Reaction Status Date / Time levetiracetam [From [facility]] Allergy Rash/Hives Verified 08/27/24 17:07 Penicillins Allergy "STOPPED Verified 08/27/24 17:07 BREATHING" NSAIDS (Non-Steroidal AdvReac "MAY CAUSE Verified 08/27/24 17:07 Anti-Inflamma ULCERS R/T BARIATRIC SX" Physical Exam Vitals: Vital Signs Temp Pulse Pulse Resp BP BP Pulse Ox 08/29/24 07:55 98.6 F 86 16 112/78 100 08/29/24 03:17 98.2 F 95 14 109/76 94 L 08/29/24 00:43 98.3 F 114 H 16 117/82 100 08/28/24 21:25 98.2 F 91 16 107/72 100 08/28/24 20:54 93 18 108/77 96 08/28/24 16:12 112 H 18 140/105 96 08/28/24 14:44 98.8 F 140 H 18 128/94 95 08/28/24 13:33 100.1 F H 125 H 18 132/90 96 08/28/24 12:48 100.7 F H 140 H 20 151/99 95 08/28/24 12:00 135 H 18 131/103 96 08/28/24 10:24 151 H 18 96 Intake and Output 08/28/24 08/29/24 08/29/24 22:59 06:59 14:59 Output Total 300 Balance -300 Output: Urine 300 Other: Voiding Method Indwelling Catheter Weight 45.359 kg 45.5 kg Results - Lab Results Most recent lab results Calcium 9.0 mg/dL (8.4-10.2) 08/29/24 06:41 Magnesium 2.1 mg/dL (1.6-2.3) 08/29/24 06:41 08/29/24 06:41 08/29/24 06:41 Assessment and Plan Plan: Assessment: 1. Hypernatremia from lack of oral water intake. Improving with D5W. 2. Hypokalemia from poor intake and Florinef. 3. Metabolic acidosis secondary to IV fluids with hyperchloremia. On oral bicarb. 4. History of adrenal sufficiency maintained on Florinef. 5. Encephalopathy being followed by neurology as well as infectious disease. 6. Resistant UTI on antibiotics. Plan: Increase rate of D5W to 75 cc an hour. Replace potassium. Repeat labs in the morning. Thank you for the consultation. I will continue to follow the patient with you during her hospital stay.
[2024-08-29] MEDS: DEXTROSE 5% IN WATER 1,000 ML IV SCH (10:58)
[2024-08-29 11:44] VITALS: BMI 17.7
[2024-08-29 11:48] LABS: Partial Thromboplastin Time 23.3 sec (22.0-30.0); Prothrombin Time 11.2 sec (10.0-12.5)
--- NOTE | 2024-08-29 13:03 | P.PN ---
Subjective Progress Note Date: 08/29/24 I am following-up with patient and she continues to be severely confused and agitated. She had low grade fevers yesterday but none overnight or today. Objective - Vital Signs Vital signs: Vital Signs Temp 98.6 F 08/29/24 07:55 Pulse 86 08/29/24 07:56 Resp 16 08/29/24 07:56 BP 112/78 08/29/24 07:55 Pulse Ox 100 08/29/24 07:55 FiO2 Intake & Output 08/28/24 08/29/24 08/29/24 18:59 06:59 18:59 Intake Total 450 Output Total 950 300 400 Balance -500 -300 -400 Weight 45.359 kg 45.5 kg 45.5 kg Intake: Intake, IV Titration 450 Amount ACETAMINOPHEN IV (For NPO 100 ) 1,000 mg In Empty Bag 1 bag @ 400 mls/hr IVPB Q6HR [facility]ELIN Rx#:[id number] Dextrose 5%-0.45% NaCl 1, 300 000 ml @ 75 mls/hr IV . [id number] JACQUELIN Rx#:[id number] Ertapenem 1 gm In Sodium 50 Chloride 0.9% 50 ml @ 100 mls/hr IVPB DAILY J[facility]QUELIN Rx #:[id number] Sodium Chloride 0.9% 1, 0 000 ml @ 20 mls/hr IV . Q24H JACQUELIN Rx#:[id number] Output: Urine 950 300 400 Other: Voiding Method Indwelling Catheter Ileal Conduit (Right) - Exam General: Does not appear in acute distress. But is slightly agitated. Neuro: Very limited. She seems a bit more awake today but would sit up even with hand restraints and repeats "Ouch" then would lay back on bed and at times would do it while laying down. No facial weakness from limitation. Some of the workup during this hospital visit consisted of: Tmax: 100.1F yesterday at 1300 and no further fevers. White blood cell is 21,000 and repeat is 18,000-->9.4K Sodium is 151 and got as high as 155-->149 Magnesium is 2.4 and repeat is normal AST is 46 ALT is 47 Ammonia level is less than 9. Serum glucose on initial presentation was 121 most recent 1 is 160 Urinalysis is leukocyte Estrace small, urine white blood cells 19. Urine drug screen is positive for benzo as well as barbiturates. CT of the head is reported as no acute intracranial process. I personally reviewed the CT and agree with the report. - Labs CBC & Chem 7: 08/29/24 06:41 08/29/24 06:41 Labs: Abnormal Lab Results - Last 24 Hours (Table) 08/28/24 08/28/24 08/28/24 Range/Units 11:26 20:14 20:14 RBC (3.80-5.40) m/uL Hgb (11.4-16.0) gm/dL Hct (34.0-46.0) % MCHC (31.0-37.0) g/dL RDW (11.5-15.5) % Sodium 154 H 148 H 148 H (137-145) mmol/L Potassium 3.2 L (3.5-5.1) mmol/L Chloride 125 H 120 H (98-107) mmol/L Carbon Dioxide 17 L 17 L (22-30) mmol/L BUN 31 H 25 H (7-17) mg/dL Glucose 160 H 126 H (74-99) mg/dL AST (14-36) U/L ALT (4-34) U/L Total Protein (6.3-8.2) g/dL Albumin (3.5-5.0) g/dL 08/29/24 08/29/24 Range/Units 06:41 06:41 RBC 3.23 L (3.80-5.40) m/uL Hgb 9.6 L D (11.4-16.0) gm/dL Hct 31.3 L (34.0-46.0) % MCHC 30.5 L (31.0-37.0) g/dL RDW 16.2 H (11.5-15.5) % Sodium 149 H (137-145) mmol/L Potassium 3.4 L (3.5-5.1) mmol/L Chloride 124 H (98-107) mmol/L Carbon Dioxide 17 L (22-30) mmol/L BUN 22 H (7-17) mg/dL Glucose 104 H (74-99) mg/dL AST 52 H (14-36) U/L ALT 54 H (4-34) U/L Total Protein 5.8 L (6.3-8.2) g/dL Albumin 3.4 L (3.5-5.0) g/dL Assessment and Plan Assessment: This is a 39-year-old woman who presents from outside hospital because of altered mental status. It seems that she had recent hospitalization in our facility in the beginning of August and she had acute metabolic encephalopathy secondary to hypernatremia, UTI and COVID-19 infection and was discharged home. She has hypernatremia leukocytosis. She is afebrile so far Altered mental status seems due to metabolic encephalopathy. Cannot rule out underlying infection. CT of the head is unremarkable. I doubt this meningoencephalitis. Hypernatremia Leukocytosis possible due to dehydration but cannot rule out underlying infection--resolved and yesterday had minimal low grade fever yesterday History of epilepsy History of Warnicke encephalopathy History of Mnire's disease History of Raynaud's disease History of recurrent UTI History of recent COVID-19 infection History of GERD Wheelchair-bound History of chronic indwelling suprapubic catheter History of anxiety History of depression Plan: Pending routine EEG I consulted anesthesiology team for Lumbar puncture. ID team is on board. She is on vancomycin and Ertapenem. I started the patient on Acylovir 500mg every 8 hours for encephalitis coverage. I highly doubt and if CSF study is negative then discontinue. Nephrology is on board Wound team is consulted Will defer the rest of the medical management to primary and other specialist Plan discussed with the primary attending Addendum: Patient is unable to cooperate for EEG. Dr. Last will resume neurology service tomorrow A.M. Time with Patient: Less than 30
[2024-08-29] MEDS ORDERED: fentaNYL (PF) 50 MCG/ML 2 ML AMP ONE (13:14)
--- NOTE | 2024-08-29 13:28 | P.PCN ---
Description of Procedure: Preprocedure diagnosis. Mental status change. Postprocedure diagnosis. As above. Procedure done. Lumbar puncture and collection of cerebrospinal fluid. Anesthesia. Local infiltration with anesthetics. Continuous pulse ox, EKG, blood pressure and verbal communication was maintained with the patient. Time. Start 1318. Stop 1323. Blood loss. None. Indication. Discussed the procedure, alternatives, complications which may include infection, nerve damage, paralysis, aggravation of the symptoms especially bleeding in the spine and posterior dural puncture headache with the patient. The patient understands and questions were answered. Procedure note. After getting concentration in the procedure room in lateral po sition. Back prepped with chlorhexidine and draped in sterile fashion. After injecting 3 mL of 1% lidocaine subcutaneously, a 22-gauge spinal needle was introduced at L45 interspace. Positive CSF, negative blood, negative paresthesia. CSF color was clear. CSF pressure was not measured. CSF was collected in 4 supplied sterol containers in sequence. Spinal needle was taken out and bandage was applied. Disposition. Patient tolerated the procedure well. No complication. Advised patient to lay flat one-hour postprocedure. The rest of the day today try to lay flat as much as possible. Next 3 days drink lots of fluid especially caffeinated beverages, and avoid constipation cough and doing strenuous physical work. Discharged home in stable condition.
[2024-08-29 13:44] LABS: African American GFR (CKD) >90 (>60 ml/min/1.73 sqM); Non-African American GFR(CKD) 82 (>60 ml/min/1.73 sqM)
--- NOTE | 2024-08-29 14:02 | P.PN ---
Subjective Progress Note Date: 08/29/24 Subjective: Patient seen and examined at bedside. Has a sitter at bedside. Less agitated this morning. Still in bed restraints. Reportedly patient has not had alcoholic drink in multiple years Pertinent positives and negatives as discussed above, a complete review of systems was performed and all other systems are negative. Vitals Signs Reviewed. General: Nontoxic, no distress, appears at stated age, chronically ill- appearing, suprapubic catheter in place Derm: Warm, dry, coccyx pressure ulcer not observed, multiple bruises on the arms with scrapes and abrasions noted on right posterior ribs and back Head: Atraumatic, normocephalic, symmetric Eyes: EOMI, no lid lag, anicteric sclera Mouth: No lip lesion, mucus membranes moist Cardiovascular: S1S2 reg, no murmur Lungs: CTA bilateral, no rhonchi, no rales, no accessory muscle use Abdominal: Soft, nontender to palpation, no guarding, no appreciable organomegaly Ext: No gross muscle atrophy, no edema, no contractures Neuro: Moving all extremities, no contractures, no edema, not following commands but withdraws to pain Psych: Nonverbal but mumbles Data Reviewed Today: Pertinent Labs: WBC 9.4, hemoglobin 9.6, platelet 2 8, sodium 149, potassium 3.4, creatinine 0.84, total bili 0.5, AST 52, ALT 54, ALP 217, respiratory viral panel negative. Imaging: No new imaging Assessment and Plan: Patient is severely ill, needs close monitoring. Prognosis guarded. Acute metabolic versus septic encephalopathy Hypernatremia Dehydration High anion gap metabolic acidosis Leukocytosis, resolved History of Wernicke's encephalopathy -Sitter at bedside, patient in bed restraints -Neurochecks every 4 hours -Seizure, fall, and aspiration precautions to be maintained. -Close monitoring of vital signs with continuous telemetry monitoring. -Tachycardia improved with IV fluids. -Nephrology following, patient on D5 water at 75 cc an hour continue to monitor BMP -Discussed with neurology, will likely metabolic encephalopathy given h yponatremia, however cannot rule out infectious cause, LP pending -ID following, patient is empirically on IV vancomycin, monitor for renal toxicity, also on ertapenem 1 g IV daily given prior history of resistance Proteus in urine -Patient also started on IV acyclovir as viral meningitis/encephalitis cannot be ruled -Thiamine 100mg daily continue -Blood cultures pending -Encephalopathy may be pain mediated, will start on Dilaudid 0.5 IV push every 4 hours, On IV Tylenol -CIWA discontinued -Zyprexa 5 IM every 6 hours for agitation -Patient also on Seroquel 50 nightly Pt status post recent treatment for UTI with chronic suprapubic catheter and has hx of recurrent UTI's Neurogenic bladder with chronic urostomy/suprapubic catheter -Urine cultures x 2 completed 08/20/2024 and 08/22/2024 were negative showing no growth. -Indwelling suprapubic catheter present on admission, also has a urostomy -Continue on ertapenem as above Hypokalemia -40 mEq oral potassium given today Epilepsy -Continue home medication regimen with Topamax 50 mg 3 times daily and Dilantin 100 mg 3 times daily. -Dilantin subtherapeutic, likely because patient was not taking at home Pressure ulcer to sacrum/coccyx, present on admission -Patient with stage II-III pressure ulcer to coccyx. Wound care following -Turn every 2 hours and offload from coccyx. -Previously grown MRSA, patient already on IV vancomycin Chronic: Fibromyalgia Anxiety/depression History of alcohol dependence Gout GERD Adrenal insufficiency DVT ppx: Lovenox Code status: Full code Anticipated discharge place: Pending clinical course Anticipated discharge time: Pending clinical course Objective - Vital Signs Vital signs: Vital Signs Temp 98 F 08/29/24 13:37 Pulse 100 08/29/24 13:45 Resp 18 08/29/24 13:45 BP 111/76 08/29/24 13:45 Pulse Ox 100 08/29/24 13:45 FiO2 Intake & Output 08/28/24 08/29/24 08/29/24 18:59 06:59 18:59 Intake Total 450 Output Total 950 300 400 Balance -500 -300 -400 Weight 45.359 kg 45.5 kg 45.5 kg Intake: Intake, IV Titration 450 Amount ACETAMINOPHEN IV (For NPO 100 ) 1,000 mg In Empty Bag 1 bag @ 400 mls/hr IVPB Q6HR AJCQUELIN Rx#:[id number] Dextrose 5%-0.45% NaCl 1, 300 000 ml @ 75 mls/hr IV . [id number] JACQUELIN Rx#:[id number] Ertapenem 1 gm In Sodium 50 Chloride 0.9% 50 ml @ 100 mls/hr IVPB DAILY [facility] Rx #:[id number] Sodium Chloride 0.9% 1, 0 000 ml @ 20 mls/hr IV . Q24H JACQUELIN Rx#:[id number] Output: Urine 950 300 400 Other: Voiding Method Indwelling Catheter Ileal Conduit (Right) - Labs CBC & Chem 7: 08/29/24 06:41 08/29/24 12:37 Labs: Abnormal Lab Results - Last 24 Hours (Table) 08/28/24 08/28/24 08/29/24 Range/Units 20:14 20:14 06:41 RBC 3.23 L (3.80-5.40) m/uL Hgb 9.6 L D (11.4-16.0) gm/dL Hct 31.3 L (34.0-46.0) % MCHC 30.5 L (31.0-37.0) g/dL RDW 16.2 H (11.5-15.5) % Sodium 148 H 148 H (137-145) mmol/L Potassium 3.2 L (3.5-5.1) mmol/L Chloride 120 H (98-107) mmol/L Carbon Dioxide 17 L (22-30) mmol/L BUN 25 H (7-17) mg/dL Glucose 126 H (74-99) mg/dL AST (14-36) U/L ALT (4-34) U/L Total Protein (6.3-8.2) g/dL Albumin (3.5-5.0) g/dL 08/29/24 Range/Units 06:41 RBC (3.80-5.40) m/uL Hgb (11.4-16.0) gm/dL Hct (34.0-46.0) % MCHC (31.0-37.0) g/dL RDW (11.5-15.5) % Sodium 149 H (137-145) mmol/L Potassium 3.4 L (3.5-5.1) mmol/L Chloride 124 H (98-107) mmol/L Carbon Dioxide 17 L (22-30) mmol/L BUN 22 H (7-17) mg/dL Glucose 104 H (74-99) mg/dL AST 52 H (14-36) U/L ALT 54 H (4-34) U/L Total Protein 5.8 L (6.3-8.2) g/dL Albumin 3.4 L (3.5-5.0) g/dL Microbiology - Last 24 Hours (Table) 08/27/24 23:30 Blood Culture - Preliminary Blood
[2024-08-29 14:17] LABS: Glucose,CSF 64 mg/dL (40-70); Total Protein,CSF 52 mg/dL (12-60)
[2024-08-29] MEDS: VANCOMYCIN TROUGH DUE 1 EACH MISC MISCELLANE ONE (14:27)
[2024-08-29 15:10] LABS: Appearance,CSF Clear; CSF Tube Number 4; Nucleated Cells, CSF 0 u/L (0-5); Red Blood Cell,CSF 8 u/L (0-10)
--- NOTE | 2024-08-29 15:42 | P.PN ---
Subjective Progress Note Date: 08/29/24 Principal diagnosis: Reason for follow-up is fever leukocytosis Patient is a 39-year-old female with multiple comorbidities including fibromyalgia reflux pneumonia seizure disorder patient also have a urostomy and recently admitted to the hospital concerning for possible UTI has been brought back to the hospital concerning for mental status changes he did have elevated white count subsequent also low-grade fever. On today's evaluation that is 08/29/2024, the patient continues to be afebrile, the patient is on room air and breathing comfortably, the Pt remains to be restless unable to provide any history no vomiting or diarrhea has been reported. Patient white count normalized to 9.4 creatinine 0.84 did have LP completed which was normal cultures are currently pending Objective - Vital Signs Vital signs: Vital Signs Temp 98 F 08/29/24 13:37 Pulse 90 08/29/24 14:00 Resp 18 08/29/24 14:00 BP 106/77 08/29/24 14:00 Pulse Ox 99 08/29/24 14:00 FiO2 Intake & Output 08/28/24 08/29/24 08/29/24 18:59 06:59 18:59 Intake Total 450 Output Total 950 300 400 Balance -500 -300 -400 Weight 45.359 kg 45.5 kg 45.5 kg Intake: Intake, IV Titration 450 Amount ACETAMINOPHEN IV (For NPO 100 ) 1,000 mg In Empty Bag 1 bag @ 400 mls/hr IVPB Q6HR JACQUELIN Rx#:[id number] Dextrose 5%-0.45% NaCl 1, 300 000 ml @ 75 mls/hr IV . [id number] JACQUELIN Rx#:[id number] Ertapenem 1 gm In Sodium 50 Chloride 0.9% 50 ml @ 100 mls/hr IVPB DAILY JACQUELIN Rx #:[id number] Sodium Chloride 0.9% 1, 0 000 ml @ 20 mls/hr IV . Q24H JACQUELIN Rx#:[id number] Output: Urine 950 300 400 Other: Voiding Method Indwelling Catheter Ileal Conduit (Right) - Exam GENERAL DESCRIPTION: Middle aged female lying in bed in no distress RESPIRATORY SYSTEM: Unlabored breathing , decreased breath sounds at bases HEART: S1 S2 regular rate and rhythm , ABDOMEN: Soft , no tenderness EXTREMITIES: No edema feet - Labs CBC & Chem 7: 08/29/24 06:41 08/29/24 12:37 Labs: Abnormal Lab Results - Last 24 Hours (Table) 08/28/24 08/28/24 08/29/24 Range/Units 20:14 20:14 06:41 RBC 3.23 L (3.80-5.40) m/uL Hgb 9.6 L D (11.4-16.0) gm/dL Hct 31.3 L (34.0-46.0) % MCHC 30.5 L (31.0-37.0) g/dL RDW 16.2 H (11.5-15.5) % Sodium 148 H 148 H (137-145) mmol/L Potassium 3.2 L (3.5-5.1) mmol/L Chloride 120 H (98-107) mmol/L Carbon Dioxide 17 L (22-30) mmol/L BUN 25 H (7-17) mg/dL Glucose 126 H (74-99) mg/dL AST (14-36) U/L ALT (4-34) U/L Total Protein (6.3-8.2) g/dL Albumin (3.5-5.0) g/dL 08/29/24 Range/Units 06:41 RBC (3.80-5.40) m/uL Hgb (11.4-16.0) gm/dL Hct (34.0-46.0) % MCHC (31.0-37.0) g/dL RDW (11.5-15.5) % Sodium 149 H (137-145) mmol/L Potassium 3.4 L (3.5-5.1) mmol/L Chloride 124 H (98-107) mmol/L Carbon Dioxide 17 L (22-30) mmol/L BUN 22 H (7-17) mg/dL Glucose 104 H (74-99) mg/dL AST 52 H (14-36) U/L ALT 54 H (4-34) U/L Total Protein 5.8 L (6.3-8.2) g/dL Albumin 3.4 L (3.5-5.0) g/dL Microbiology - Last 24 Hours (Table) 08/27/24 23:30 Blood Culture - Preliminary Blood Assessment and Plan (1) Leukocytosis Current Visit: Yes Status: Acute Code(s): D72.829 - ELEVATED WHITE BLOOD CELL COUNT, UNSPECIFIED SNOMED Code(s): 168651881 (2) Penicillin allergy Current Visit: No Status: Acute Code(s): Z88.0 - ALLERGY STATUS TO PENICILLIN SNOMED Code(s): 46784563 (3) Stage III pressure ulcer of sacral region Current Visit: No Status: Acute Code(s): L89.153 - PRESSURE ULCER OF SACRAL REGION, STAGE 3 SNOMED Code(s): 56904854201659 (4) UTI (urinary tract infection) Current Visit: No Status: Acute Code(s): N39.0 - URINARY TRACT INFECTION, SITE NOT SPECIFIED SNOMED Code(s): 90077191 Plan: 1patient presented to hospital with mental status changes which is likely multifactorial in this patient also have elevated white count underlying infectious etiology specially urinary source could not be entirely excluded as lungs were clear to auscultation abdomen was soft and no evidence of any cellulitis or joint swelling 2-penicillin allergy that will limit the number of anybody safe to use 3-did have a stage III sacral pressure ulcer but no cellulitis wound care has been consulted follow the recommendation 4-patient did have normalization of the white count cultures are pending, CSF finding normal continue with Invanz and vancomycin while waiting for the culture to finalize Dictation was produced using [employer] dictation software. please excuse any grammatical, word or spelling errors.
[2024-08-30] MEDS: VANCOMYCIN 750 MG in SODIUM CHLORIDE 0.9% 250 ML IVPB SCH (06:02)
[2024-08-30 09:03] LABS: Anisocytosis Slight; Basophils % (A) 0 %; Eosinophils # (A) 0.2 k/uL (0-0.7); Eosinophils % (A) 3 %; HCT 37.7 % (34.0-46.0); HGB 11.5 gm/dL (11.4-16.0); Hypochromasia Slight; Lymphocytes # (A) 1.3 k/uL (1.0-4.8); Lymphocytes % (A) 21 %; MCH 29.1 pg (25.0-35.0); MCHC 30.4 g/dL (31.0-37.0); MCV 95.9 fL (80.0-100.0); Mean Platelet Volume 7.9; Monocytes # (A) 0.2 k/uL (0-1.0); Monocytes % (A) 3 %; Neutrophils # (A) 4.4 k/uL (1.3-7.7); Neutrophils % (A) 72 %; Platelet Count 224 k/uL (150-450); RBC 3.93 m/uL (3.80-5.40); RDW 16.3 % (11.5-15.5); WBC 6.1 k/uL (3.8-10.6)
[2024-08-30 09:15] LABS: African American GFR (CKD) >90 (>60 ml/min/1.73 sqM); Anion Gap 11 mmol/L; Blood Urea Nitrogen 12 mg/dL (7-17); Calcium 9.1 mg/dL (8.4-10.2); Carbon Dioxide 19 mmol/L (22-30); Chloride 110 mmol/L (98-107); Glucose 114 mg/dL (74-99); Magnesium 1.8 mg/dL (1.6-2.3); Non-African American GFR(CKD) 87 (>60 ml/min/1.73 sqM); Potassium 3.2 mmol/L (3.5-5.1); Sodium 140 mmol/L (137-145)
[2024-08-30] MEDS ORDERED: ENOXAPARIN 40 MG/0.4 ML SYRINGE SQ SCH (10:00)
--- NOTE | 2024-08-30 10:03 | P.PN ---
Subjective Patient is seen in follow-up for hyponatremia. Sodium level normal today. Currently on D5W. Oral intake has improved. Poor historian. Vital signs are stable. General: No acute distress. HEENT: Head exam is unremarkable. LUNGS: No audible rhonchi or wheezes. HEART: Rate and Rhythm are regular. EXTREMITITES: No edema. Objective - Vital Signs Vital signs: Vital Signs Temp 98.0 F 08/30/24 07:30 Pulse 103 H 08/30/24 08:30 Resp 16 08/30/24 08:30 BP 111/78 08/30/24 07:30 Pulse Ox 100 08/30/24 07:30 FiO2 Intake & Output 08/29/24 08/30/24 08/30/24 18:59 06:59 18:59 Intake Total 0 118 Output Total 1200 625 400 Balance -1200 -625 -282 Weight 45.5 kg 45.5 kg Intake: Oral 0 118 Output: Urine 1200 625 400 Other: Voiding Method Ileal Conduit (Right) Indwelling Catheter Ileal Conduit (Right) # Bowel Movements 0 - Labs CBC & Chem 7: 08/30/24 08:01 08/30/24 08:01 Labs: Abnormal Lab Results - Last 24 Hours (Table) 08/30/24 08/30/24 Range/Units 08:01 08:01 MCHC 30.4 L (31.0-37.0) g/dL RDW 16.3 H (11.5-15.5) % Potassium 3.2 L (3.5-5.1) mmol/L Chloride 110 H (98-107) mmol/L Carbon Dioxide 19 L (22-30) mmol/L Glucose 114 H (74-99) mg/dL Microbiology - Last 24 Hours (Table) 08/29/24 13:20 CSF Gram Stain - Preliminary Cerebral Spinal Fluid 08/27/24 23:30 Blood Culture - Preliminary Blood Assessment and Plan Plan: Assessment: 1. Hypernatremia from lack of oral water intake. Improved with D5W. 2. Hypokalemia from poor intake and Florinef. 3. Metabolic acidosis secondary to IV fluids with hyperchloremia. Also on Topamax. On oral bicarb. 4. History of adrenal sufficiency maintained on Florinef. 5. Encephalopathy being followed by neurology as well as infectious disease. 6. Resistant UTI on antibiotics. Plan: Hep-Lock IV fluids. Encouraged oral intake, including free water. Replace potassium. Repeat labs in the morning.
[2024-08-30] MEDS: LACTATED RINGERS 1,000 ML IV SCH (10:05)
[2024-08-30] MEDS: POTASSIUM CHLORIDE ER 20 MEQ TAB.ER PO STA (10:36)
[2024-08-30] MEDS: POTASSIUM CHLORIDE ER 10 MEQ TAB.ER.PRT PO STA (10:55)
[2024-08-30] MEDS: ENOXAPARIN 30 MG/0.3 ML SYRINGE SQ SCH (10:55)
--- NOTE | 2024-08-30 11:25 | P.PN ---
Subjective Progress Note Date: 08/30/24 Subjective: 08/29/2024 Patient seen and examined at bedside. Has a sitter at bedside. Less agitated this morning. Still in bed restraints. Reportedly patient has not had alcoholic drink in multiple years. 08/30/2024 Patient seen and examined at bedside. Patient not on restraints. Pleseant and cooperative during assessment. No agitation. Sodium 140, potassium 3.2, chloride 110, bicarb 19, BUN 12, creatinine 0.85, glucose 114, calcium 9.1, magnesium 1.8. Lumbar puncture unremarkable. Imaging: No new imaging Pertinent positives and negatives as discussed above, a complete review of systems was performed and all other systems are negative. Vitals Signs Reviewed. General: Nontoxic, no distress, appears at stated age, chronically ill- appearing, suprapubic catheter in place Derm: Warm, dry, coccyx pressure ulcer not observed, multiple bruises on the arms with scrapes and abrasions noted on right posterior ribs and back Head: Atraumatic, normocephalic, symmetric Eyes: EOMI, anicteric sclera Mouth: No lip lesion, mucus membranes moist Cardiovascular: S1S2 reg, no murmur Lungs: CTA bilateral, no rhonchi, no rales, no accessory muscle use Abdominal: Soft, nontender to palpation, no guarding, no appreciable org anomegaly Ext: No gross muscle atrophy, no edema, no contractures, lower extremities in fixed extension Neuro: No focal deficits, no tremors Psych: ANO x 3, appropriate mood and affect Assessment and Plan: 39-year-old female who is a poor historian with history of chronic debility that is wheelchair-bound, coccyx pressure ulcer, GERD, Wernicke's encephalopathy, Mnire's disease, recurrent UTIs with chronic indwelling suprapubic catheter here for evaluation of acute encephalopathy, multiple etiologies being ruled out, and management of hypernatremia. Patient is severely ill, needs close monitoring. Prognosis guarded. #. Acute metabolic versus septic encephalopathy, improving #. Hypernatremia #. Dehydration #. High anion gap metabolic acidosis #. Leukocytosis, resolved #. History of Wernicke's encephalopathy -Neurochecks every 4 hours -Seizure, fall, and aspiration precautions to be maintained. -Close monitoring of vital signs with continuous telemetry monitoring. -Discussed with neurology, concern likely for metabolic encephalopathy given hyponatremia, however cannot rule out infectious cause -LP unremarkable -Nephrology following, IV fluids switched to lactated Ringer's 75 cc/h continue to monitor BMP -ID following, monitor for renal toxicity, also on ertapenem 1 g IV daily given prior history of resistance Proteus in urine, on Vancomycin IV. Consider de- escalation today. -Discontinued IV acyclovir 08/29 -Encephalopathy may be pain mediated. On Dilaudid 0.5 IV push every 4 hours prn -Continue thiamine 100mg daily -Zyprexa 5 IM every 6 hours for agitation -Patient also on Seroquel 50 nightly -Blood cultures pending #. Pt status post recent treatment for UTI with chronic suprapubic catheter and has hx of recurrent UTI's #. Neurogenic bladder with chronic urostomy/suprapubic catheter -Urine cultures x 2 completed 08/20/2024 and 08/22/2024 were negative showing no growth. -Indwelling suprapubic catheter present on admission, also has a urostomy -Continue on ertapenem as above #. Hypokalemia -30 mEq oral potassium given today -Recheck potassium #. Epilepsy -Continue home medication regimen with Topamax 50 mg 3 times daily and Dilantin 100 mg 3 times daily. -Dilantin subtherapeutic, likely because patient was not taking at home #. Pressure ulcer to sacrum/coccyx, present on admission -Patient with stage II-III pressure ulcer to coccyx. Wound care following -Turn every 2 hours and offload from coccyx. -Previously grown MRSA, patient already on IV vancomycin Chronic: Fibromyalgia Anxiety/depression History of alcohol dependence Gout GERD Adrenal insufficiency DVT ppx: Lovenox Code status: Full code I have seen and evaluated the patient today. Discussed with the resident and agree with the residents finding and plan as documented in the resident's note. Changes highlighted in blue font. Objective - Vital Signs Vital signs: Vital Signs Temp 98.0 F 08/30/24 04:49 Pulse 87 08/30/24 04:49 Resp 16 08/30/24 04:49 BP 103/85 08/30/24 04:49 Pulse Ox 98 08/30/24 04:49 FiO2 Intake & Output 08/29/24 08/29/24 08/30/24 06:59 18:59 06:59 Intake Total 0 Output Total 300 1200 625 Balance -300 -1200 -625 Weight 45.5 kg 45.5 kg 45.5 kg Intake: Oral 0 Output: Urine 300 1200 625 Other: Voiding Method Indwelling Catheter Ileal Conduit (Right) Indwelling Catheter # Bowel Movements 0 - Labs CBC & Chem 7: 08/30/24 08:01 08/30/24 08:01 Labs: Abnormal Lab Results - Last 24 Hours (Table) 08/29/24 08/29/24 Range/Units 06:41 06:41 RBC 3.23 L (3.80-5.40) m/uL Hgb 9.6 L D (11.4-16.0) gm/dL Hct 31.3 L (34.0-46.0) % MCHC 30.5 L (31.0-37.0) g/dL RDW 16.2 H (11.5-15.5) % Sodium 149 H (137-145) mmol/L Potassium 3.4 L (3.5-5.1) mmol/L Chloride 124 H (98-107) mmol/L Carbon Dioxide 17 L (22-30) mmol/L BUN 22 H (7-17) mg/dL Glucose 104 H (74-99) mg/dL AST 52 H (14-36) U/L ALT 54 H (4-34) U/L Total Protein 5.8 L (6.3-8.2) g/dL Albumin 3.4 L (3.5-5.0) g/dL Microbiology - Last 24 Hours (Table) 08/27/24 23:30 Blood Culture - Preliminary Blood
--- NOTE | 2024-08-30 14:29 | P.PN ---
Subjective Progress Note Date: 08/30/24 The patient is a 39-year-old female who is seen in neurologic follow-up, in cross coverage for Dr. Morris, in collaboration with Kanika Mcginnis, via teleneurology. Interim history is obtained. The patient is reportedly more awake and is feeling better. Lumbar puncture was obtained yesterday. CSF at this point is normal. Protein and glucose are normal. There are no reported cells in the CSF. For original history of chief complaint, please see Dr. Morris's neurology consultation Objective - Vital Signs Vital signs: Vital Signs Temp 98.0 F 08/30/24 10:54 Pulse 99 08/30/24 10:54 Resp 16 08/30/24 10:54 BP 114/82 08/30/24 10:54 Pulse Ox 100 08/30/24 10:54 FiO2 Intake & Output 08/29/24 08/30/24 08/30/24 18:59 06:59 18:59 Intake Total 0 358 Output Total 1200 625 625 Balance -1200 -625 -267 Weight 45.5 kg 45.5 kg Intake: Oral 0 358 Output: Urine 1200 625 625 Other: Voiding Method Ileal Conduit (Right) Indwelling Catheter Ileal Conduit (Right) # Bowel Movements 0 - Exam General: The patient is reclining in the bed. She is well-nourished. She is in no acute distress. HEENT: Head is atraumatic, normocephalic. Fundus not visualized. There is no scleral icterus. Mucous membranes are moist. Neurological examination Mental status: Patient is able to state her name and date of . She is very slow to respond to questions. Her speech is slow. She is reportedly more awake. She is no longer in restraints. Cranial nerves: 2-12 grossly intact - Labs CBC & Chem 7: 08/30/24 08:01 08/30/24 08:01 Labs: Abnormal Lab Results - Last 24 Hours (Table) 08/30/24 08/30/24 Range/Units 08:01 08:01 MCHC 30.4 L (31.0-37.0) g/dL RDW 16.3 H (11.5-15.5) % Potassium 3.2 L (3.5-5.1) mmol/L Chloride 110 H (98-107) mmol/L Carbon Dioxide 19 L (22-30) mmol/L Glucose 114 H (74-99) mg/dL Microbiology - Last 24 Hours (Table) 08/27/24 23:30 Blood Culture - Preliminary Blood 08/29/24 13:20 CSF Gram Stain - Preliminary Cerebral Spinal Fluid Assessment and Plan Assessment: This is a 39-year-old woman who presents from outside hospital because of altered mental status. It seems that she had recent hospitalization in our facility in the beginning of August and she had acute metabolic encephalopathy secondary to hypernatremia, UTI and COVID-19 infection and was discharged home. She has hypernatremia, leukocytosis. She is afebrile so far Altered mental status seems due to metabolic encephalopathy CSF is negative for CLARIFICATION OPERATOR infection Hypernatremia Leukocytosis possible due to dehydration History of epilepsy History of Wernicke encephalopathy History of Mnire's disease History of Raynaud's disease History of recurrent UTI History of recent COVID-19 infection History of GERD Wheelchair-bound History of chronic indwelling suprapubic catheter History of anxiety History of depression Plan: 1. Will discontinue acyclovir 2. Appreciate infectious disease input 3. Await repeat EEG Time with Patient: Greater than 30 (40 minutes were spent caring for this p atient today including, obtaining a history, examining the patient, reviewing imaging, chart documentation, labs, placing orders and creating this note)
--- NOTE | 2024-08-30 16:38 | P.PN ---
Subjective Progress Note Date: 08/30/24 Principal diagnosis: Reason for follow-up is fever leukocytosis Patient is a 39-year-old female with multiple comorbidities including fibromyalgia reflux pneumonia seizure disorder patient also have a urostomy and recently admitted to the hospital concerning for possible UTI has been brought back to the hospital concerning for mental status changes he did have elevated white count subsequent also low-grade fever. On today's evaluation that is 08/30/2024, patient did not have any fever, the patient is more awake today and did answer some simple question she is breathing comfortably on room air vomiting diarrhea and the change reported by the sitter at the bedside. The patient white count 6.1, creatinine 0.85 blood culture negative unfortunately no urine culture were done Objective - Vital Signs Vital signs: Vital Signs Temp 98.0 F 08/30/24 10:54 Pulse 99 08/30/24 10:54 Resp 16 08/30/24 10:54 BP 114/82 08/30/24 10:54 Pulse Ox 100 08/30/24 10:54 FiO2 Intake & Output 08/29/24 08/30/24 08/30/24 18:59 06:59 18:59 Intake Total 0 358 Output Total 1200 625 625 Balance -1200 -625 -267 Weight 45.5 kg 45.5 kg Intake: Oral 0 358 Output: Urine 1200 625 625 Other: Voiding Method Ileal Conduit (Right) Indwelling Catheter Ileal Conduit (Right) # Bowel Movements 0 - Exam GENERAL DESCRIPTION: Middle aged female lying in bed in no distress RESPIRATORY SYSTEM: Unlabored breathing , decreased breath sounds at bases HEART: S1 S2 regular rate and rhythm , ABDOMEN: Soft , no tenderness EXTREMITIES: No edema feet - Labs CBC & Chem 7: 08/30/24 08:01 08/30/24 08:01 Labs: Abnormal Lab Results - Last 24 Hours (Table) 08/30/24 08/30/24 Range/Units 08:01 08:01 MCHC 30.4 L (31.0-37.0) g/dL RDW 16.3 H (11.5-15.5) % Potassium 3.2 L (3.5-5.1) mmol/L Chloride 110 H (98-107) mmol/L Carbon Dioxide 19 L (22-30) mmol/L Glucose 114 H (74-99) mg/dL Microbiology - Last 24 Hours (Table) 08/27/24 23:30 Blood Culture - Preliminary Blood 08/29/24 13:20 CSF Gram Stain - Preliminary Cerebral Spinal Fluid Assessment and Plan (1) Leukocytosis Current Visit: Yes Status: Acute Code(s): D72.829 - ELEVATED WHITE BLOOD CELL COUNT, UNSPECIFIED SNOMED Code(s): 635792948 (2) Penicillin allergy Current Visit: No Status: Acute Code(s): Z88.0 - ALLERGY STATUS TO PENICILLIN SNOMED Code(s): 98516778 (3) Stage III pressure ulcer of sacral region Current Visit: No Status: Acute Code(s): L89.153 - PRESSURE ULCER OF SACRAL REGION, STAGE 3 SNOMED Code(s): 80173508960960 (4) UTI (urinary tract infection) Current Visit: No Status: Acute Code(s): N39.0 - URINARY TRACT INFECTION, SITE NOT SPECIFIED SNOMED Code(s): 85141858 Plan: 1patient presented to hospital with mental status changes which is likely multifactorial in this patient also have elevated white count underlying infectious etiology specially urinary source could not be entirely excluded as lungs were clear to auscultation abdomen was soft and no evidence of any cellulitis or joint swelling 2-penicillin allergy that will limit the number of anybody safe to use 3-did have a stage III sacral pressure ulcer but no cellulitis wound care has been consulted follow the recommendation 4-patient did have normalization of the white count, blood culture has been negative CSF findings were normal unfortunately no urine culture were done and may have been the source of this infection 5we will repeat a urine culture for now continue with Invanz and vancomycin Dictation was produced using [employer] dictation software. please excuse any grammatical, word or spelling errors. Time with Patient: Less than 30
[2024-08-30 18:07] LABS: Appearance,Urine Clear (Clear); Bacteria,Urine Rare /hpf; Bilirubin,Urine Negative (Negative); Blood,Urine Trace (Negative); Color,Urine Colorless; Glucose,Urine (UA) Negative (Negative); Ketones,Urine Negative (Negative); Leukocyte Esterase,Urine Trace (Negative); Mucus,Urine Rare /hpf; Nitrite,Urine Negative (Negative); Protein,Urine Trace (Negative); RBC,Urine 4 /hpf (0-5); Specific Gravity,Urine 1.009 (1.001-1.035); Urobilinogen,Urine <2.0 mg/dL (<2.0); WBC,Urine 7 /hpf (0-5)
[2024-08-31 07:50] LABS: African American GFR (CKD) >90 (>60 ml/min/1.73 sqM); Anion Gap 10 mmol/L; Blood Urea Nitrogen 9 mg/dL (7-17); Calcium 8.8 mg/dL (8.4-10.2); Carbon Dioxide 17 mmol/L (22-30); Chloride 111 mmol/L (98-107); Glucose 83 mg/dL (74-99); Non-African American GFR(CKD) >90 (>60 ml/min/1.73 sqM); Sodium 138 mmol/L (137-145)
[2024-08-31 07:53] LABS: Potassium 4.1 mmol/L (3.5-5.1)
--- NOTE | 2024-08-31 10:05 | P.PN ---
Subjective Patient is seen in follow-up for hyponatremia. Off IV fluids. Sodium normal. Oral intake has improved. Poor historian. Vital signs are stable. General: No acute distress. HEENT: Head exam is unremarkable. LUNGS: No audible rhonchi or wheezes. HEART: Rate and Rhythm are regular. EXTREMITITES: No edema. Objective - Vital Signs Vital signs: Vital Signs Temp 98.0 F 08/31/24 08:17 Pulse 95 08/31/24 08:18 Resp 16 08/31/24 08:17 BP 126/85 08/31/24 08:17 Pulse Ox 100 08/31/24 08:17 FiO2 Intake & Output 08/30/24 08/31/24 08/31/24 18:59 06:59 18:59 Intake Total 476 Output Total 625 1125 450 Balance -149 -1125 -450 Weight 45.5 kg Intake: Oral 476 Output: Urine 625 1125 450 Other: Voiding Method Ileal Conduit (Right) Ileal Conduit (Right) Ileal Conduit (Right) - Labs CBC & Chem 7: 08/30/24 08:01 08/31/24 06:41 Labs: Abnormal Lab Results - Last 24 Hours (Table) 08/30/24 08/31/24 Range/Units 16:56 06:41 Chloride 111 H (98-107) mmol/L Carbon Dioxide 17 L (22-30) mmol/L Urine Protein Trace H (Negative) Urine Blood Trace H (Negative) Ur Leukocyte Esterase Trace H (Negative) Urine WBC 7 H (0-5) /hpf Urine Bacteria Rare H (None) /hpf Urine Mucus Rare H (None) /hpf Microbiology - Last 24 Hours (Table) 08/29/24 13:20 CSF Gram Stain - Preliminary Cerebral Spinal Fluid CSF Culture - Preliminary 08/27/24 23:30 Blood Culture - Preliminary Blood Assessment and Plan Plan: Assessment: 1. Hypernatremia from lack of oral water intake. Improved with D5W. 2. Hypokalemia from poor intake and Florinef. 3. Metabolic acidosis secondary to IV fluids with hyperchloremia. Also on Topamax. On oral bicarb. 4. History of adrenal sufficiency maintained on Florinef. 5. Encephalopathy being followed by neurology as well as infectious disease. 6. Resistant UTI on antibiotics. Plan: Encouraged oral intake.
--- NOTE | 2024-08-31 11:32 | P.PN ---
Subjective Progress Note Date: 08/31/24 Subjective: Patient seen and examined at bedside. No acute events overnight. Patient is more cooperative today. No sitter at bedside. Pertinent positives and negatives as discussed above, a complete review of systems was performed and all other systems are negative. Vitals Signs Reviewed. General: Nontoxic, no distress, appears at stated age, chronically ill- appearing, suprapubic catheter in place Derm: Warm, dry, coccyx pressure ulcer not observed, multiple bruises on the arms with scrapes and abrasions noted on right posterior ribs and back Head: Atraumatic, normocephalic, symmetric Eyes: EOMI, anicteric sclera Mouth: No lip lesion, mucus membranes moist Cardiovascular: S1S2 reg, no murmur Lungs: CTA bilateral, no rhonchi, no rales, no accessory muscle use Abdominal: Soft, nontender to palpation, no guarding, no appreciable organomegaly Ext: No gross muscle atrophy, no edema, has contractures, lower extremities in fixed extension Neuro: No focal deficits, no tremors Psych: ANO x 3, appropriate mood and affect Data Reviewed Today: Pertinent Labs: Sodium 138, potassium 4.1, bicarb 17, creatinine 0.81 Imaging: No new imaging Assessment and Plan: #. Acute metabolic versus septic encephalopathy, improving #. Hypernatremia #. Dehydration #. Metabolic acidosis #. Leukocytosis, resolved #. History of Wernicke's encephalopathy -Neurochecks every 4 hours -Seizure, fall, and aspiration precautions to be maintained. -Close monitoring of vital signs with continuous telemetry monitoring. -Neurology following, likely encephalopathy secondary to undertreatment -LP unremarkable -Nephrology following, patient maintained on sodium bicarb 650 twice daily -ID following, monitor for renal toxicity, also on ertapenem 1 g IV daily given prior history of resistance Proteus in urine, on Vancomycin IV. Consider de- escalation . -Discontinued IV acyclovir 08/29 -On Dilaudid 0.5 IV push every 4 hours prn -Continue thiamine 100mg daily -Zyprexa 5 IM every 6 hours for agitation -Patient also on Seroquel 50 nightly #. Pt status post recent treatment for UTI with chronic suprapubic catheter and has hx of recurrent UTI's #. Neurogenic bladder with chronic urostomy/suprapubic catheter -Urine cultures x 2 completed 08/20/2024 and 08/22/2024 were negative showing no growth. -Indwelling suprapubic catheter present on admission, also has a urostomy -Continue on ertapenem as above #. Hypokalemia, resolved #. Epilepsy -Continue home medication regimen with Topamax 50 mg 3 times daily and Dilantin 100 mg 3 times daily. -Dilantin subtherapeutic, likely because patient was not taking at home #. Pressure ulcer to sacrum/coccyx, present on admission -Patient with stage II-III pressure ulcer to coccyx. Wound care following -Turn every 2 hours and offload from coccyx. -Previously grown MRSA, patient already on IV vancomycin Chronic: Fibromyalgia Anxiety/depression History of alcohol dependence Gout GERD Adrenal insufficiency DVT ppx: Lovenox Code status: Full code Disposition: Likely discharge to SNF Objective - Vital Signs Vital signs: Vital Signs Temp 98.0 F 08/31/24 08:17 Pulse 95 08/31/24 08:18 Resp 16 08/31/24 08:17 BP 126/85 08/31/24 08:17 Pulse Ox 100 08/31/24 08:17 FiO2 Intake & Output 08/30/24 08/31/24 08/31/24 18:59 06:59 18:59 Intake Total 476 Output Total 625 1125 450 Balance -149 -1125 -450 Weight 45.5 kg Intake: Oral 476 Output: Urine 625 1125 450 Other: Voiding Method Ileal Conduit (Right) Ileal Conduit (Right) Ileal Conduit (Right) - Labs CBC & Chem 7: 08/30/24 08:01 08/31/24 06:41 Labs: Abnormal Lab Results - Last 24 Hours (Table) 08/30/24 08/31/24 Range/Units 16:56 06:41 Chloride 111 H (98-107) mmol/L Carbon Dioxide 17 L (22-30) mmol/L Urine Protein Trace H (Negative) Urine Blood Trace H (Negative) Ur Leukocyte Esterase Trace H (Negative) Urine WBC 7 H (0-5) /hpf Urine Bacteria Rare H (None) /hpf Urine Mucus Rare H (None) /hpf Microbiology - Last 24 Hours (Table) 08/29/24 13:20 CSF Gram Stain - Preliminary Cerebral Spinal Fluid CSF Culture - Preliminary 08/27/24 23:30 Blood Culture - Preliminary Blood
--- NOTE | 2024-08-31 15:53 | P.PN ---
Subjective Progress Note Date: 08/31/24 Principal diagnosis: Reason for follow-up is fever leukocytosis Patient is a 39-year-old female with multiple comorbidities including fibromyalgia reflux pneumonia seizure disorder patient also have a urostomy and recently admitted to the hospital concerning for possible UTI has been brought back to the hospital concerning for mental status changes he did have elevated white count subsequent also low-grade fever. On today's evaluation that is 08/31/2024, Patient is afebrile patient is currently on room air, the patient is more awake and alert today did follow some simple commands denies any chest pain or cough no vomiting or diarrhea has been reported. Patient did have a creatinine 0.8 1 repeat UA has shown improvement culture has been negative so far Objective - Vital Signs Vital signs: Vital Signs Temp 98.9 F 08/31/24 11:17 Pulse 102 H 08/31/24 13:13 Resp 16 08/31/24 11:17 BP 125/90 08/31/24 11:17 Pulse Ox 99 08/31/24 11:17 FiO2 Intake & Output 08/30/24 08/31/24 08/31/24 18:59 06:59 18:59 Intake Total 476 Output Total 625 1125 450 Balance -149 -1125 -450 Weight 45.5 kg Intake: Oral 476 Output: Urine 625 1125 450 Other: Voiding Method Ileal Conduit (Right) Ileal Conduit (Right) Ileal Conduit (Right) - Exam GENERAL DESCRIPTION: Middle aged female lying in bed in no distress RESPIRATORY SYSTEM: Unlabored breathing , decreased breath sounds at bases HEART: S1 S2 regular rate and rhythm , ABDOMEN: Soft , no tenderness EXTREMITIES: No edema feet - Labs CBC & Chem 7: 08/30/24 08:01 08/31/24 06:41 Labs: Abnormal Lab Results - Last 24 Hours (Table) 08/30/24 08/31/24 Range/Units 16:56 06:41 Chloride 111 H (98-107) mmol/L Carbon Dioxide 17 L (22-30) mmol/L Urine Protein Trace H (Negative) Urine Blood Trace H (Negative) Ur Leukocyte Esterase Trace H (Negative) Urine WBC 7 H (0-5) /hpf Urine Bacteria Rare H (None) /hpf Urine Mucus Rare H (None) /hpf Microbiology - Last 24 Hours (Table) 08/27/24 23:30 Blood Culture - Preliminary Blood 08/29/24 13:20 CSF Gram Stain - Preliminary Cerebral Spinal Fluid CSF Culture - Preliminary Assessment and Plan (1) Leukocytosis Current Visit: Yes Status: Acute Code(s): D72.829 - ELEVATED WHITE BLOOD CELL COUNT, UNSPECIFIED SNOMED Code(s): 966729909 (2) Penicillin allergy Current Visit: No Status: Acute Code(s): Z88.0 - ALLERGY STATUS TO PENICILLIN SNOMED Code(s): 46298003 (3) Stage III pressure ulcer of sacral region Current Visit: No Status: Acute Code(s): L89.153 - PRESSURE ULCER OF SACRAL REGION, STAGE 3 SNOMED Code(s): 50246718625467 (4) UTI (urinary tract infection) Current Visit: No Status: Acute Code(s): N39.0 - URINARY TRACT INFECTION, SITE NOT SPECIFIED SNOMED Code(s): 08689095 Plan: 1patient presented to hospital with mental status changes which is likely multifactorial in this patient also have elevated white count underlying infectious etiology specially urinary source could not be entirely excluded as lungs were clear to auscultation abdomen was soft and no evidence of any cellulitis or joint swelling 2-penicillin allergy that will limit the number of anybody safe to use 3-did have a stage III sacral pressure ulcer but no cellulitis wound care has been consulted follow the recommendation 4-patient did have normalization of the white count, blood culture has been negative CSF findings were normal, her repeat UA has shown improvement 5in view of overall improvement her mentation we will obtain a CT abdominal pelvis to make sure no evidence of any structural normality or focus of infection for now continue with Invanz and vancomycin Dictation was produced using [employer] dictation software. please excuse any grammatical, word or spelling errors.
[2024-08-31] MEDS: IOPAMIDOL CONTRAST (ORAL USE) VIAL PO PRN (16:22)
--- NOTE | 2024-08-31 18:46 | CT ---
EXAMINATION TYPE: CT abdomen pelvis w con DATE OF EXAM: 08/31/2024 6:11 PM COMPARISON: CT abdomen pelvis most recent from 01/05/2024. CLINICAL INDICATION: Female, 39 years old with history of pain; Generalized abdominal pain. TECHNIQUE: Axial CT abdomen pelvis w con;Sagittal and coronal reformats were created on a separate w orkstation. Contrast used:100ml mL of Isovue 300 with IV Contrast, (none if empty) Oral contrast used: with Oral Contrast (none if empty) CT DLP: 566 mGycm, Automated exposure control for dose reduction was used. FINDINGS: LOWER CHEST: Unremarkable ABDOMEN LIVER: Unremarkable GALLBLADDER AND BILE DUCTS: The gallbladder surgically absent. The extrahepatic biliary system up to 11 mm which may be increased from prior exam. PANCREAS: Unremarkable. SPLEEN: Unremarkable. ADRENAL GLANDS: Unremarkable. KIDNEYS AND URETERS: Mild bilateral hydronephrosis. Nonobstructing left renal calculus measuring up t o 21 mm. No right renal calculi. PELVIS BLADDER: No evidence for wall thickening or mass given limitations of exam. REPRODUCTIVE: Uterus is not visualized and may be surgically absent. ABDOMEN & PELVIS STOMACH AND BOWEL: No evidence of bowel obstruction. PERITONEUM/RETROPERITONEUM: No evidence of pneumoperitoneum or free fluid. VASCULATURE: No evidence of aortic aneurysm. MUSCULOSKELETAL: No acute osseous abnormalities LYMPH NODES: No gross evidence for lymphadenopathy. SOFT TISSUE/ABDOMINAL WALL: Unremarkable IMPRESSION: 1. Mild bilateral hydronephrosis no definitive obstructive calculus visualized however evaluation li mited due to patient body habitus. Findings are new from 01/05/2024. Consider CT urogram for further e valuation of obstructing area. Obstruction likely in the pelvis. 2. Nonobstructing left chest. 3. Hysterectomy changes. 4. Cholecystectomy changes with dilation of the extrahepatic biliary system up to 11 mm. Findings ma y be slightly increased from prior on 01/05/2024. [facility], , 08/31/2024 6:44 PM
[2024-09-01 06:18] LABS: African American GFR (CKD) >90 (>60 ml/min/1.73 sqM); Anion Gap 9 mmol/L; Blood Urea Nitrogen 10 mg/dL (7-17); Calcium 9.4 mg/dL (8.4-10.2); Carbon Dioxide 24 mmol/L (22-30); Chloride 106 mmol/L (98-107); Glucose 85 mg/dL (74-99); Magnesium 2.1 mg/dL (1.6-2.3); Non-African American GFR(CKD) 88 (>60 ml/min/1.73 sqM); Potassium 3.6 mmol/L (3.5-5.1); Sodium 139 mmol/L (137-145)
[2024-09-01] MEDS: VANCOMYCIN TROUGH DUE 1 EACH MISC MISCELLANE ONE (07:15)
--- NOTE | 2024-09-01 11:47 | P.PN ---
Subjective Progress Note Date: 09/01/24 Subjective: 08/29/2024 Patient seen and examined at bedside. Has a sitter at bedside. Less agitated this morning. Still in bed restraints. Reportedly patient has not had alcoholic drink in multiple years. 08/30/2024 Patient seen and examined at bedside. Patient not on restraints. Pleseant and cooperative during assessment. No agitation. Sodium 140, potassium 3.2, chloride 110, bicarb 19, BUN 12, creatinine 0.85, glucose 114, calcium 9.1, magnesium 1.8. Lumbar puncture unremarkable. Imaging: No new imaging 08/31/2024 Patient seen and examined at bedside. No acute events overnight. Patient is more cooperative today. No sitter at bedside. 09/01/2024 patient seen and examined at bedside. No acute events overnight. No new complaints. No sitter at bedside. Agitated on evaluation. Labs: Sodium 139, potassium 3.6, bicarb 24, creatinine 0.84, BUN 10 Imaging; abdomen pelvis CT showed mild bilateral hydronephrosis with no definitive obstructing calculus visualized, nonobstructing left chest, hysterectomy changes, cholecystectomy changes with dilatation of extrahepatic biliary system. Pertinent positives and negatives as discussed above, a complete review of systems was performed and all other systems are negative. Vitals Signs Reviewed. General: Nontoxic, no distress, appears at stated age, chronically ill- appearing, suprapubic catheter in place Derm: Warm, dry, coccyx pressure ulcer not observed, multiple bruises on the arms with scrapes and abrasions noted on right posterior ribs and back Head: Atraumatic, normocephalic, symmetric Eyes: EOMI, anicteric sclera Mouth: No lip lesion, mucus membranes moist Cardiovascular: S1S2 reg, no murmur Lungs: CTA bilateral, no rhonchi, no rales, no accessory muscle use Abdominal: Soft, nontender to palpation, no guarding, no appreciable organomegaly Ext: No gross muscle atrophy, no edema, no contractures, lower extremities in fixed extension Neuro: No focal deficits, no tremors Psych: ANO x 3, appropriate mood and affect Assessment and Plan: 39-year-old female who is a poor historian with history of chronic debility that is wheelchair-bound, coccyx pressure ulcer, GERD, Wernicke's encephalopathy, Mnire's disease, recurrent UTIs with chronic indwelling suprapubic catheter here for evaluation of acute encephalopathy, multiple etiologies being ruled out, and management of hypernatremia. Patient is severely ill, needs close monitoring. Prognosis guarded. #. Acute metabolic versus septic encephalopathy, improving #. Hypernatremia, resolved #. Dehydration, resolved #. Metabolic acidosis, resolved #. Leukocytosis, resolved #. History of Wernicke's encephalopathy -Neurochecks every 4 hours -Seizure, fall, and aspiration precautions to be maintained. -Close monitoring of vital signs with continuous telemetry monitoring. -Neurology following, likely encephalopathy secondary to undertreatment -LP unremarkable. Cultures so far negative -Nephrology following, patient maintained on sodium bicarb 650 twice daily -ID following, monitor for renal toxicity, also on ertapenem 1 g IV daily given prior history of resistance Proteus in urine, on Vancomycin IV . -Will require PICC line placement fro IV antibiotics for 2 weeks per Infectious disease. CM working on d/c needs -Discontinued IV acyclovir 08/29 -On Dilaudid 0.5 IV push every 4 hours prn -Continue thiamine 100mg daily -Zyprexa 5 IM every 6 hours for agitation -Patient also on Seroquel 50 nightly #. Pt status post recent treatment for UTI with chronic suprapubic catheter and has hx of recurrent UTI's #. Neurogenic bladder with chronic urostomy/suprapubic catheter -Urine cultures x 2 completed 08/20/2024 and 08/22/2024 were negative showing no growth. -Indwelling suprapubic catheter present on admission, also has a urostomy -Abdomen pelvis CT showed mild bilateral hydronephrosis with no definitive obstructing calculus visualized, nonobstructing left chest, hysterectomy changes, cholecystectomy changes with dilatation of extrahepatic biliary system. Patient's creatinine since admission. WBC normal levels since 08/29. -Continue on ertapenem as above #. Epilepsy -Continue home medication regimen with Topamax 50 mg 3 times daily and Dilantin 100 mg 3 times daily. -Dilantin subtherapeutic, likely because patient was not taking at home #. Pressure ulcer to sacrum/coccyx, present on admission -Patient with stage II-III pressure ulcer to coccyx. Wound care following -Turn every 2 hours and offload from coccyx. -Previously grown MRSA, patient already on IV vancomycin #. Hypokalemia, resolved Chronic: Fibromyalgia Anxiety/depression History of alcohol dependence Gout GERD Adrenal insufficiency DVT ppx: Lovenox Code status: Full code Disposition: Likely discharge to SNF I have seen and evaluated the patient today. Discussed with the resident and agree with the residents finding and plan as documented in the resident's note. Changes highlighted in blue font. Objective - Vital Signs Vital signs: Vital Signs Temp 97.9 F 09/01/24 03:22 Pulse 86 09/01/24 03:22 Resp 16 09/01/24 03:22 BP 105/79 09/01/24 03:22 Pulse Ox 100 09/01/24 03:22 FiO2 Intake & Output 08/31/24 08/31/24 09/01/24 06:59 18:59 06:59 Output Total 1125 950 600 Balance -1125 -950 -600 Weight 45.5 kg Output: Urine 1125 950 600 Other: Voiding Method Ileal Conduit (Right) Ileal Conduit (Right) Ileal Conduit (Right) - Labs CBC & Chem 7: 08/30/24 08:01 09/01/24 05:21 Labs: Abnormal Lab Results - Last 24 Hours (Table) 08/31/24 Range/Units 06:41 Chloride 111 H (98-107) mmol/L Carbon Dioxide 17 L (22-30) mmol/L Microbiology - Last 24 Hours (Table) 08/29/24 13:20 CSF Gram Stain - Preliminary Cerebral Spinal Fluid CSF Culture - Preliminary 08/27/24 23:30 Blood Culture - Preliminary Blood
[2024-09-01 12:04] LABS: INR 1.1 (<1.2); Prothrombin Time 11.6 sec (10.0-12.5)
--- NOTE | 2024-09-01 14:21 | P.PN ---
Subjective Patient is seen for follow-up for hypernatremia. Serum sodium at 139 today Not on IV fluids Objective - Vital Signs Vital signs: Vital Signs Temp 98.3 F 09/01/24 10:58 Pulse 107 H 09/01/24 13:23 Resp 16 09/01/24 13:23 BP 113/80 09/01/24 10:58 Pulse Ox 98 09/01/24 10:58 FiO2 Intake & Output 08/31/24 09/01/24 09/01/24 18:59 06:59 18:59 Intake Total 10 Output Total 950 1700 650 Balance -950 -1700 -640 Intake: IV 10 Invasive Line 4 10 Output: Urine 950 1700 650 Other: Voiding Method Ileal Conduit (Right) Ileal Conduit (Right) Ileal Conduit (Right) # Voids 3 - Exam Patient is awake, no acute distress Examination of the heart S1 and S2 Examination of the lungs bilateral breath sounds are heard Abdomen is soft nontender Examination of lower extremity shows no significant edema - Labs CBC & Chem 7: 08/30/24 08:01 09/01/24 05:21 Labs: Microbiology - Last 24 Hours (Table) 08/29/24 13:20 CSF Gram Stain - Preliminary Cerebral Spinal Fluid CSF Culture - Preliminary 08/27/24 23:30 Blood Culture - Preliminary Blood Assessment and Plan Assessment: 1. Hypernatremia from lack of oral water intake. Improved with D5W. 2. Hypokalemia from poor intake and Florinef. 3. Metabolic acidosis secondary to IV fluids with hyperchloremia. Also on Topamax. On oral bicarb. 4. History of adrenal sufficiency maintained on Florinef. 5. Encephalopathy being followed by neurology as well as infectious disease. 6. Resistant UTI on antibiotics. Plan: Continue to encourage increased oral intake Will likely DC sodium bicarb tomorrow based on labs.
--- NOTE | 2024-09-01 17:12 | P.PN ---
Subjective Progress Note Date: 09/01/24 Principal diagnosis: Reason for follow-up is fever leukocytosis Patient is a 39-year-old female with multiple comorbidities including fibromyalgia reflux pneumonia seizure disorder patient also have a urostomy and recently admitted to the hospital concerning for possible UTI has been brought back to the hospital concerning for mental status changes he did have elevated white count subsequent also low-grade fever. On today's evaluation that is 09/01/2024, patient has been afebrile, patient is breathing comfortably and is currently on room air, patient is more awake and alert no chest pain or cough no abdominal pain and no diarrhea has been reported. Patient did have a creatinine of 0.84, blood culture have been negative urine not obtained Objective - Vital Signs Vital signs: Vital Signs Temp 98.3 F 09/01/24 10:58 Pulse 107 H 09/01/24 10:58 Resp 16 09/01/24 10:58 BP 113/80 09/01/24 10:58 Pulse Ox 98 09/01/24 10:58 FiO2 Intake & Output 08/31/24 09/01/24 09/01/24 18:59 06:59 18:59 Output Total 950 1700 650 Balance -950 -1700 -650 Output: Urine 950 1700 650 Other: Voiding Method Ileal Conduit (Right) Ileal Conduit (Right) Ileal Conduit (Right) # Voids 3 - Exam GENERAL DESCRIPTION: Middle aged female lying in bed in no distress RESPIRATORY SYSTEM: Unlabored breathing , decreased breath sounds at bases HEART: S1 S2 regular rate and rhythm , ABDOMEN: Soft , no tenderness EXTREMITIES: No edema feet - Labs CBC & Chem 7: 08/30/24 08:01 09/01/24 05:21 Labs: Microbiology - Last 24 Hours (Table) 08/29/24 13:20 CSF Gram Stain - Preliminary Cerebral Spinal Fluid CSF Culture - Preliminary 08/27/24 23:30 Blood Culture - Preliminary Blood Assessment and Plan (1) Leukocytosis Current Visit: Yes Status: Acute Code(s): D72.829 - ELEVATED WHITE BLOOD CELL COUNT, UNSPECIFIED SNOMED Code(s): 646515640 (2) Penicillin allergy Current Visit: No Status: Acute Code(s): Z88.0 - ALLERGY STATUS TO PENICILLIN SNOMED Code(s): 74058830 (3) Stage III pressure ulcer of sacral region Current Visit: No Status: Acute Code(s): L89.153 - PRESSURE ULCER OF SACRAL REGION, STAGE 3 SNOMED Code(s): 29745493767790 (4) UTI (urinary tract infection) Current Visit: No Status: Acute Code(s): N39.0 - URINARY TRACT INFECTION, SITE NOT SPECIFIED SNOMED Code(s): 46136252 Plan: 1patient presented to hospital with mental status changes which is likely multifactorial in this patient also have elevated white count underlying infectious etiology specially urinary source could not be entirely excluded as lungs were clear to auscultation abdomen was soft and no evidence of any cellulitis or joint swelling 2-penicillin allergy that will limit the number of anybody safe to use 3-did have a stage III sacral pressure ulcer but no cellulitis wound care has been consulted follow the recommendation 4-patient did have normalization of the white count, blood culture has been negative CSF findings were normal, her repeat UA has shown improvement 5patient did have CT abdominal pelvis with evidence of bilateral hydronephrosis may benefit from urology evaluation keeping in mind improvement of the vancomycin and Invanz will finish a 2-week course of therapy total prescription provided to the home health care case manager Dictation was produced using [employer] dictation software. please excuse any grammatical, word or spelling errors. Time with Patient: Less than 30
--- NOTE | 2024-09-01 20:26 | EEG ---
ELECTROENCEPHALOGRAM REPORT PREAMBLE: This is a 39-year-old female with altered mental status, rule out seizure. The patient was transferred from [facility] for confusion. The patient has a history of Wernicke's encephalopathy. CURRENT MEDICATIONS: 1. Dilantin. 2. Lovenox. 3. BuSpar. 4. Ditropan. EEG FINDINGS: This is a 21-channel digital EEG recorded with video component, utilizing 10/20 international system with referential and bipolar montage. Background consists of well- developed, well-regulated moderate voltage activity in 8 to 9 Hz alpha. Background is posterior dominant and it is reactive to eye opening and closing. Photic driving response was seen with some flash frequencies. Intermittent frontal rhythmic delta activity was seen sporadically. Different stages of sleep were not seen. No focal or generalized epileptiform activity was seen. IMPRESSION: This is essentially a normal awake and drowsy EEG. No focal, lateralized, or epileptiform activity was seen. MMODL / IJN: [id number] /
[2024-09-02] MEDS ORDERED: VANCOMYCIN 750 MG in SODIUM CHLORIDE 0.9% 250 ML IVPB SCH (07:00)
[2024-09-02 08:17] LABS: African American GFR (CKD) >90 (>60 ml/min/1.73 sqM); Non-African American GFR(CKD) 82 (>60 ml/min/1.73 sqM)
[2024-09-02 08:37] LABS: African American GFR (CKD) >90 (>60 ml/min/1.73 sqM); Anion Gap 8 mmol/L; Blood Urea Nitrogen 11 mg/dL (7-17); Carbon Dioxide 24 mmol/L (22-30); Chloride 108 mmol/L (98-107); Glucose 84 mg/dL (74-99); Non-African American GFR(CKD) 87 (>60 ml/min/1.73 sqM); Potassium 3.4 mmol/L (3.5-5.1); Sodium 140 mmol/L (137-145)
[2024-09-02 09:29] LABS: Basophils % (A) 1 %; Eosinophils # (A) 0.2 k/uL (0-0.7); Eosinophils % (A) 3 %; HCT 42.8 % (34.0-46.0); HGB 12.8 gm/dL (11.4-16.0); Hypochromasia Slight; Lymphocytes # (A) 1.3 k/uL (1.0-4.8); Lymphocytes % (A) 18 %; MCHC 29.9 g/dL (31.0-37.0); Mean Platelet Volume 7.7; Monocytes # (A) 0.3 k/uL (0-1.0); Monocytes % (A) 4 %; Neutrophils # (A) 5.6 k/uL (1.3-7.7); Neutrophils % (A) 74 %; Platelet Count 292 k/uL (150-450); RBC 4.42 m/uL (3.80-5.40); RDW 15.9 % (11.5-15.5); WBC 7.5 k/uL (3.8-10.6)
[2024-09-02] MEDS: POTASSIUM BICARBONATE/CIT AC 20 MEQ TABLET.EFF PO ONE (10:20)
--- NOTE | 2024-09-02 10:32 | P.PN ---
Subjective Progress Note Date: 09/01/24 Patient initially seen by Dr. Robi Morris. Please refer to his note for details. Patient is a 39-year-old female with altered mental status and low-grade fever. Patient underwent lumbar puncture, which was negative for infection. Patient is back to baseline. Patient states she is feeling good. She is cooperative. A sitter was also present. Objective - Vital Signs Vital signs: Vital Signs Temp 98.3 F 09/01/24 10:58 Pulse 107 H 09/01/24 13:23 Resp 16 09/01/24 13:23 BP 113/80 09/01/24 10:58 Pulse Ox 98 09/01/24 10:58 FiO2 Intake & Output 09/01/24 09/01/24 09/02/24 06:59 18:59 06:59 Intake Total 10 Output Total 1700 975 Balance -1700 -965 Intake: IV 10 Invasive Line 4 10 Output: Urine 1700 975 Other: Voiding Method Ileal Conduit (Right) Ileal Conduit (Right) # Voids 3 - Exam Examination continues to reveal very malnutritioned, cachectic female. Patient has good food broker, biceps triceps, but patient has bilateral foot drop, with heel cord shortening. Patient is nonambulatory. Patient has overall reduced muscle mass. - Labs CBC & Chem 7: 09/02/24 07:56 09/02/24 06:48 Labs: Microbiology - Last 24 Hours (Table) 08/29/24 13:20 CSF Gram Stain - Preliminary Cerebral Spinal Fluid CSF Culture - Preliminary Assessment and Plan Assessment: This is a 39-year-old woman who presents from outside hospital because of altered mental status. It seems that she had recent hospitalization in our facility in the beginning of August and she had acute metabolic encephalopathy secondary to hypernatremia, UTI and COVID-19 infection and was discharged home. She has hypernatremia, leukocytosis. She is afebrile so far Altered mental status seems due to metabolic encephalopathy CSF is negative for CRM ARCHITECT infection Hypernatremia Leukocytosis possible due to dehydration History of epilepsy History of Wernicke encephalopathy History of Mnire's disease History of Raynaud's disease History of recurrent UTI History of recent COVID-19 infection History of GERD Wheelchair-bound History of chronic indwelling suprapubic catheter History of anxiety History of depression Plan: 1. CSF revealed 0 WBC, 8 RBC, CSF glucose 64, CSF protein 52, comprehensive viral panel negative. Patient is off acyclovir 2. Appreciate infectious disease input 3. EEG was normal awake and drowsy. No focal, lateralized or epileptiform activity was seen. 4. Continue Dilantin 100 mg 3 times daily. Patient was off Topamax prior to arrival to the hospital. As per patient's report, patient's neurologist Dr. Jo has stopped Topamax and placed her on Dilantin. Topamax can decrease appetite and make weight loss further worse. Suggest tapering it off.
--- NOTE | 2024-09-02 11:19 | P.PN ---
Subjective Progress Note Date: 09/02/24 Subjective: 08/29/2024 Patient seen and examined at bedside. Has a sitter at bedside. Less agitated this morning. Still in bed restraints. Reportedly patient has not had alcoholic drink in multiple years. 08/30/2024 Patient seen and examined at bedside. Patient not on restraints. Pleseant and cooperative during assessment. No agitation. Sodium 140, potassium 3.2, chloride 110, bicarb 19, BUN 12, creatinine 0.85, glucose 114, calcium 9.1, magnesium 1.8. Lumbar puncture unremarkable. Imaging: No new imaging 08/31/2024 Patient seen and examined at bedside. No acute events overnight. Patient is more cooperative today. No sitter at bedside. 09/01/2024 patient seen and examined at bedside. No acute events overnight. No new complaints. No sitter at bedside. Agitated on evaluation. Labs: Sodium 139, potassium 3.6, bicarb 24, creatinine 0.84, BUN 10 Imaging; abdomen pelvis CT showed mild bilateral hydronephrosis with no definitive obstructing calculus visualized, nonobstructing left chest, hysterectomy changes, cholecystectomy changes with dilatation of extrahepatic biliary system. 09/02/2024 patient seen and examined at bedside. Patient more cooperative today. Sitter at bedside. No acute events overnight. Labs: WBC 7.5, hemoglobin 12.8, platelet count 292,000, sodium 140, potassium 3.4, chloride 108, bicarb 24, BUN 11, creatinine 0.85, calcium 9 Imaging; EEG was a normal awake EEG Pertinent positives and negatives as discussed above, a complete review of systems was performed and all other systems are negative. Vitals Signs Reviewed. General: Nontoxic, no distress, appears at stated age, chronically ill- appearing, suprapubic catheter in place Derm: Warm, dry, coccyx pressure ulcer not observed, multiple bruises on the arms with scrapes and abrasions noted on right posterior ribs and back Head: Atraumatic, normocephalic, symmetric Eyes: EOMI, anicteric sclera Mouth: No lip lesion, mucus membranes moist Cardiovascular: S1S2 reg, no murmur Lungs: CTA bilateral, no rhonchi, no rales, no accessory muscle use Abdominal: Soft, nontender to palpation, no guarding, no appreciable organome felicita, colostomy bag apprecaited Ext: No gross muscle atrophy, no edema, no contractures, lower extremities in fixed extension Neuro: No focal deficits, no tremors Psych: ANO x 3, appropriate mood and affect Assessment and Plan: 39-year-old female who is a poor historian with history of chronic debility that is wheelchair-bound, coccyx pressure ulcer, GERD, Wernicke's encephalopathy, Mnire's disease, recurrent UTIs with chronic indwelling suprapubic catheter here for evaluation of acute encephalopathy, multiple etiologies being ruled out, and management of hypernatremia. Patient is severely ill, needs close monitoring. Prognosis guarded. #. Acute metabolic versus septic encephalopathy, improving #. Hypernatremia, resolved #. Dehydration, resolved #. Metabolic acidosis, resolved #. Leukocytosis, resolved #. History of Wernicke's encephalopathy -Neurochecks every 4 hours -Seizure, fall, and aspiration precautions to be maintained. -Close monitoring of vital signs with continuous telemetry monitoring. -Neurology following, likely encephalopathy secondary to undertreatment -LP unremarkable. Cultures so far negative -Nephrology following, patient maintained on sodium bicarb 650 twice daily -ID following, monitor for renal toxicity, agreed to hold ertapenem and Vancomycin IV -Antibiotics held yesterday 09/01. Patient's did not develop any new or w orsening symptoms. Recommend discharge without IV antibiotics. -Discontinued IV acyclovir 08/29 -On Dilaudid 0.5 IV push every 4 hours prn -Continue thiamine 100mg daily -Zyprexa 5 IM every 6 hours for agitation -Patient also on Seroquel 50 nightly - working on d/c needs #. Pt status post recent treatment for UTI with chronic suprapubic catheter and has hx of recurrent UTI's #. Neurogenic bladder with chronic urostomy/suprapubic catheter -Urine cultures x 2 completed 08/20/2024 and 08/22/2024 were negative showing no growth. -Indwelling suprapubic catheter present on admission, also has a urostomy -Abdomen pelvis CT showed mild bilateral hydronephrosis with no definitive obstructing calculus visualized, nonobstructing left chest, hysterectomy changes, cholecystectomy changes with dilatation of extrahepatic biliary system. Patient's creatinine since admission. WBC normal levels since 08/29. -Ertapenem held #. Epilepsy -Continue home medication regimen with Topamax 50 mg 3 times daily and Dilantin 100 mg 3 times daily. -Dilantin subtherapeutic, likely because patient was not taking at home #. Pressure ulcer to sacrum/coccyx, present on admission -Patient with stage II-III pressure ulcer to coccyx. Wound care following -Turn every 2 hours and offload from coccyx. -Previously grown MRSA, IV vancomycin on hold #. Hypokalemia -Potassium 3.4 -Given 30mEq Potassium bicarb -Recheck potassium Chronic: Fibromyalgia Anxiety/depression History of alcohol dependence Gout GERD Adrenal insufficiency DVT ppx: Lovenox Code status: Full code Disposition: Likely home Objective - Vital Signs Vital signs: Vital Signs Temp 97.6 F 09/02/24 08:58 Pulse 80 09/02/24 08:58 Resp 16 09/02/24 08:58 BP 95/68 09/02/24 08:58 Pulse Ox 97 09/02/24 08:58 FiO2 Intake & Output 09/01/24 09/02/24 09/02/24 18:59 06:59 18:59 Intake Total 10 10 Output Total 975 1050 Balance -965 -1040 Intake: IV 10 10 Invasive Line 4 10 10 Output: Urine 975 1050 Other: Voiding Method Ileal Conduit (Right) Ileal Conduit (Right) # Voids 1 - Labs CBC & Chem 7: 09/02/24 07:56 09/02/24 06:48 Labs: Abnormal Lab Results - Last 24 Hours (Table) 09/02/24 09/02/24 Range/Units 06:48 07:56 MCHC 29.9 L (31.0-37.0) g/dL RDW 15.9 H (11.5-15.5) % Potassium 3.4 L (3.5-5.1) mmol/L Chloride 108 H (98-107) mmol/L Microbiology - Last 24 Hours (Table) 08/29/24 13:20 CSF Gram Stain - Preliminary Cerebral Spinal Fluid CSF Culture - Preliminary
[2024-09-02 12:16] VITALS: BP 110/76; PULSE 89; RESP 20; TEMP 98.3
--- NOTE | 2024-09-02 13:00 | P.DS ---
Providers Date of admission: 08/27/24 15:53 Expected date of discharge: 09/02/24 Attending physician: Aditya Brooks Consults: 08/27/24 15:54 Consult Physician Routine Consulting Provider: Robi Morris Consult Reason/Comments: ams Do you want consulting provider notified?: Yes Consult Physician Routine Consulting Provider: Chika Xavier Consult Reason/Comments: leukocytosis Do you want consulting provider notified?: Yes 08/28/24 11:18 Consult Physician Routine Consulting Provider: Beck Hanna Consult Reason/Comments: hypernatremia Do you want consulting provider notified?: Yes 08/29/24 09:56 Consult to Anesthesia Routine Consulting Provider: Anesthesia,Services Consult Reason/Comments: lumbar puncture r/o meningoencephalitis Primary care physician: Kyler Whalen [facility] Course: Hospital Course: Patient is a pleasant 39-year-old female past medical history of chronic debility wheelchair bound, chronic pressure ulcer to coccyx, GERD, Wernicke's encephalopathy, Mnire's disease, Raynaud's, recurrent UTIs with chronic indwelling suprapubic catheter, epilepsy, fibromyalgia, and anxiety with depression. She recently underwent hospitalization at our facility from 08/20/2024 through 08/24/2024 secondary to acute metabolic encephalopathy secondary to hypernatremia, UTI and COVID infection. After improvement of symptoms patient was discharged home into care of her caregiver/, they were offered home care for but refused stated he manages everything. Patient return to our facility today as a transfer from [facility] where she again presented with altered mental status and reports that has been stated patient has refused all medications since discharge. On admission: Vital signs: blood pressure 105/69, heart rate 99, respiratory rate 18, temp 97.4 F, and SpO2 of 95% on room air. Labs: WBC count of 21.3, sodium of 151, chloride of 117, bicarb 21, anion gap of 13, and prerenal azotemia with BUN of 39, creatinine 0.91, GFR of 80. Blood glucose was 122. Magnesium 2.4. And liver profile showing continued transaminitis with AST of 46, ALT of 47, and alkaline phosphatase of 164. Ammonia level was less than 9. Urine drug screen positive for barbiturates and benzodiazepines. Serum alcohol level was negative at less than 10. Patient was admitted for evaluation of acute encephalopathy with unclear cause, hyponatremia from poor oral intake and dehydration. IV fluids, brain CT, neurochecks, seizure precautions, fall precautions, aspiration precautions, cardiac telemetry, thiamine oral, and phenytoin levels were ordered. Wound care was consulted for her chronic pressure ulcer. Infectious disease was consulted. Neurology consulted and ordered further imaging. Nephrology consulted. CT of the head is reported as no acute intracranial process. IV antibiotics initiated due to concerns of possible recurring UTI. Blood cultures negative. Lumbar puncture was done to determine possible infectious source of encephalopathy. CSF cultures negative, cytology is pending. Patient complained of abdominal pain during hospital stay. EEG done was normal. Abdominal CT done showed mild bilateral hydronephrosis, no definitive obstructing calculus visualized, nonobstructing left chest, hysterectomy changes, cholecystectomy changes with dilation of extra hepatic biliary system up to 11mm. Patient's symptoms improved as hyponatremia improved. IV antibiotics discontinued. Patient is discharged today and her home gabapentin, baclofen and zolpidem were discontinued. We recommended home care and SNF on discharge however spouse declined as he was willing to be her caregiver. She has advised to follow-up with her PCP and the wound care center on outpatient basis. Home care will check with spouse if patient is taking her medications tomorrow. Final Diagnosis: #. Acute metabolic encephalopathy #. Hypernatremia, resolved #. Dehydration, resolved #. Metabolic acidosis, resolved #. Leukocytosis, resolved #. History of Wernicke's encephalopathy #. Pt status post recent treatment for UTI with chronic suprapubic catheter and has hx of recurrent UTI's #. Neurogenic bladder with chronic urostomy/suprapubic catheter #. Epilepsy #. Pressure ulcer to sacrum/coccyx, present on admission #. Hypokalemia, resolved #. Fibromyalgia #. Anxiety/depression #. History of alcohol dependence #. Gout #. GERD #. Adrenal insufficiency Physical examination: Vital signs reviewed General: non toxic, no distress, appears older than stated age. Frail and emac iated, chronically ill appearing. Derm: no unusual rashes/lesions, warm, Stage III pressure ulcer to coccyx, pink no surrounding erythema and no necrosis. Patient with bruises on arms 3 scrapes/abrasions noted on right posterior ribs/back. Head: atraumatic, normocephalic, symmetric Eyes: EOMI, anicteric sclera, pupils equal round reactive to light ENT: Nose and ears atraumatic Neck: No cervical lymphadenopathy, trachea midline, supple Mouth: no lip lesion, mucus membranes moist Cardiovascular: S1S2 reg, no murmur Lungs: CTA bilateral, no rhonchi, no rales, no accessory muscle use Abdominal: soft, nondistended, nontender to palpation, no guarding, Urostomy/suprapubic catheter in place Ext: muscle strength 5 out of 5 in all 4 extremities grossly, no gross muscle atrophy, lower extremities in fixed extension, positive dorsalis pedis pulse bilateral, no edema Neuro: CN II-XI grossly intact, no gross focal neuro deficits Psych: Alert, oriented, appropriate affect and mood A total of 36 minutes of time were spent preparing this complex discharge summary. Patient was discharged on 09/02/2024 at 1132. I have seen and evaluated the patient today. Discussed with the resident and agree with the residents finding and plan as documented in the resident's note. Changes highlighted in blue font. Patient Condition at Discharge: Fair Plan - Discharge Summary Discharge Rx Participant: No New Discharge Prescriptions: Continue QUEtiapine FUMARATE 50 mg PO HS Fludrocortisone [Florinef] 0.1 mg PO BID Pyridoxine [Vitamin B-6] 50 mg PO DAILY Oxybutynin Chloride [oxyBUTYnin chloride ER] 10 mg PO DAILY Famotidine 40 mg PO HS Topiramate [Topamax] 50 mg PO TID Venlafaxine HCl [Effexor] 75 mg PO TID Sodium Bicarbonate Tab 650 mg PO BID Lactulose 10 gm PO TID PRN PRN Reason: Constipation HYDROcodone/APAP 7.5-325MG [Climax 7.5-325] 1 tab PO Q6H PRN PRN Reason: Pain busPIRone HCl [Buspar] 5 mg PO TID allopurinoL [Zyloprim] 100 mg PO DAILY Cranberry/Vitamin C 60mg/250mg 1 tab PO DAILY Thiamine [Vitamin B-1] 100 mg PO DAILY Phenytoin Sodium Extended [Dilantin] 100 mg PO TID Multivit-Min/Iron/Folic/Lutein [Centrum Silver Women Tablet] 1 tab PO DAILY Discontinued Gabapentin [Neurontin] 1,200 mg PO TID Zolpidem Tartrate [Ambien Cr] 12.5 mg PO HS Baclofen [Lioresal] 20 mg PO TID Discharge Medication List QUEtiapine FUMARATE 50 mg PO HS 11/25/19 [History] Fludrocortisone [Florinef] 0.1 mg PO BID 07/19/21 [History] Famotidine 40 mg PO HS 01/05/24 [History] Oxybutynin Chloride [oxyBUTYnin chloride ER] 10 mg PO DAILY 01/05/24 [History] Pyridoxine [Vitamin B-6] 50 mg PO DAILY 01/05/24 [History] Thiamine [Vitamin B-1] 100 mg PO DAILY 01/05/24 [History] Topiramate [Topamax] 50 mg PO TID 01/05/24 [History] Cranberry/Vitamin C 60mg/250mg 1 tab PO DAILY 08/20/24 [History] HYDROcodone/APAP 7.5-325MG [Climax 7.5-325] 1 tab PO Q6H PRN 08/20/24 [History] Lactulose 10 gm PO TID PRN 08/20/24 [History] Multivit-Min/Iron/Folic/Lutein [Centrum Silver Women Tablet] 1 tab PO DAILY 08/20/24 [History] Phenytoin Sodium Extended [Dilantin] 100 mg PO TID 08/20/24 [History] Sodium Bicarbonate Tab 650 mg PO BID 08/20/24 [History] Venlafaxine HCl [Effexor] 75 mg PO TID 08/20/24 [History] allopurinoL [Zyloprim] 100 mg PO DAILY 08/20/24 [History] busPIRone HCl [Buspar] 5 mg PO TID 08/20/24 [History] Follow up Appointment(s)/Referral(s): Kyler Whalen MD [Primary Care Provider] - 09/04/24 10:15 am (With [employer] Kaur Godoy) Patient Instructions/Handouts: Urinary Tract Infection in Women (DC), How to Care for Your Suprapubic Catheter (DC), Leukocytosis (DC), Hypernatremia (DC) Activity/Diet/Wound Care/Special Instructions: Please follow up with your PCP Discharge/Stand Alone Forms: Anes Pain/Wismer Instructions Discharge Disposition: HOME SELF-CARE
--- NOTE | 2024-09-02 15:54 | P.PN ---
Subjective Progress Note Date: 09/02/24 Principal diagnosis: Reason for follow-up is fever leukocytosis Patient is a 39-year-old female with multiple comorbidities including fibromyalgia reflux pneumonia seizure disorder patient also have a urostomy and recently admitted to the hospital concerning for possible UTI has been brought back to the hospital concerning for mental status changes he did have elevated white count subsequent also low-grade fever. On today's evaluation that is 09/02/2024, Patient is afebrile this morning patient denies having any chest pain shortness of breath or cough, the patient is currently on room air, patient denies any abdominal pain no diarrhea no nausea no vomiting. Patient white count 7.5 creatinine 0.85 Objective - Vital Signs Vital signs: Vital Signs Temp 97.6 F 09/02/24 08:58 Pulse 80 09/02/24 08:58 Resp 16 09/02/24 08:58 BP 95/68 09/02/24 08:58 Pulse Ox 97 09/02/24 08:58 FiO2 Intake & Output 09/01/24 09/02/24 09/02/24 18:59 06:59 18:59 Intake Total 10 10 Output Total 975 1050 Balance -965 -1040 Intake: IV 10 10 Invasive Line 4 10 10 Output: Urine 975 1050 Other: Voiding Method Ileal Conduit (Right) Ileal Conduit (Right) # Voids 1 - Exam GENERAL DESCRIPTION: Middle aged female lying in bed in no distress RESPIRATORY SYSTEM: Unlabored breathing , decreased breath sounds at bases HEART: S1 S2 regular rate and rhythm , ABDOMEN: Soft , no tenderness EXTREMITIES: No edema feet - Labs CBC & Chem 7: 09/02/24 07:56 09/02/24 06:48 Labs: Abnormal Lab Results - Last 24 Hours (Table) 09/02/24 09/02/24 Range/Units 06:48 07:56 MCHC 29.9 L (31.0-37.0) g/dL RDW 15.9 H (11.5-15.5) % Potassium 3.4 L (3.5-5.1) mmol/L Chloride 108 H (98-107) mmol/L Microbiology - Last 24 Hours (Table) 08/29/24 13:20 CSF Gram Stain - Preliminary Cerebral Spinal Fluid CSF Culture - Preliminary Assessment and Plan (1) Leukocytosis Status: Acute Code(s): D72.829 - ELEVATED WHITE BLOOD CELL COUNT, UNSPECIFIED SNOMED Code(s): 214357938 (2) Penicillin allergy Status: Acute Code(s): Z88.0 - ALLERGY STATUS TO PENICILLIN SNOMED Code(s): 11665102 (3) Stage III pressure ulcer of sacral region Status: Acute Code(s): L89.153 - PRESSURE ULCER OF SACRAL REGION, STAGE 3 SNOMED Code(s): 58290196393347 (4) UTI (urinary tract infection) Status: Acute Code(s): N39.0 - URINARY TRACT INFECTION, SITE NOT SPECIFIED SNOMED Code(s): 50175652 Plan: 1patient presented to hospital with mental status changes which is likely multifactorial in this patient also have elevated white count underlying infectious etiology specially urinary source could not be entirely excluded as lungs were clear to auscultation abdomen was soft and no evidence of any cellulitis or joint swelling 2-penicillin allergy that will limit the number of anybody safe to use 3-did have a stage III sacral pressure ulcer but no cellulitis wound care has been consulted follow the recommendation 4-patient did have normalization of the white count, blood culture has been negative CSF findings were normal, her repeat UA has shown improvement 5patient did have CT abdominal pelvis with evidence of bilateral hydronephrosis may benefit from urology evaluation 6patient antibiotic were discussed yesterday by admitting team as they were concerned symptom was more related to hyponatremia dehydration than infection and secondly the patient was unable to get these antibiotic in the outpatient setting she did okay 24 hours off antibiotics and is being considered for discharge by admitting team Dictation was produced using [employer] dictation software. please excuse any grammatical, word or spelling errors. Time with Patient: Less than 30
--- NOTE | 2024-09-02 18:12 | P.PN ---
Subjective Patient is seen for follow-up for hypernatremia. Serum sodium at 139 yesterday. Labs are pending from today. Not on IV fluids Objective - Vital Signs Vital signs: Vital Signs Temp 98.3 F 09/02/24 11:47 Pulse 89 09/02/24 11:47 Resp 20 09/02/24 11:47 BP 110/76 09/02/24 11:47 Pulse Ox 99 09/02/24 11:47 FiO2 Intake & Output 09/01/24 09/02/24 09/02/24 18:59 06:59 18:59 Intake Total 10 10 Output Total 975 1050 1100 Balance -205 -3920 -1100 Intake: IV 10 10 Invasive Line 4 10 10 Output: Urine 975 1050 1100 Other: Voiding Method Ileal Conduit (Right) Ileal Conduit (Right) Ileal Conduit (Right) # Voids 1 - Exam Patient is awake, no acute distress Examination of the heart S1 and S2 Examination of the lungs bilateral breath sounds are heard Abdomen is soft nontender Examination of lower extremity shows no significant edema - Labs CBC & Chem 7: 09/02/24 07:56 09/02/24 06:48 Labs: Abnormal Lab Results - Last 24 Hours (Table) 09/02/24 09/02/24 Range/Units 06:48 07:56 MCHC 29.9 L (31.0-37.0) g/dL RDW 15.9 H (11.5-15.5) % Potassium 3.4 L (3.5-5.1) mmol/L Chloride 108 H (98-107) mmol/L Microbiology - Last 24 Hours (Table) 08/29/24 13:20 CSF Gram Stain - Final Cerebral Spinal Fluid CSF Culture - Final 08/27/24 23:30 Blood Culture - Final Blood Assessment and Plan Assessment: 1. Hypernatremia from lack of oral water intake. Improved with D5W. 2. Hypokalemia from poor intake and Florinef. 3. Metabolic acidosis secondary to IV fluids with hyperchloremia. Also on Topamax. On oral bicarb. 4. History of adrenal sufficiency maintained on Florinef. 5. Encephalopathy being followed by neurology as well as infectious disease. 6. Resistant UTI on antibiotics. Plan: Continue to encourage increased oral intake Decrease sodium bicarb to once a day Replace potassium
== END 2024-09-02 14:50 | disposition home or self-care (01) | DRG 70 ==
LOC: EC 14:22 → 4SSUR 15:53 → 3SCARD 22:06
PROVIDERS: ADMIT Student in an Organized Health Care Education/Training Program; ATTEND Student in an Organized Health Care Education/Training Program
PROC: 009U3ZX Drainage of Spinal Canal, Percutaneous Approach, Diagnostic (ICD-10-PCS; 2024-08-29)
PROC: 05HB33Z Insertion of Infusion Device into Right Basilic Vein, Percutaneous Approach (ICD-10-PCS; principal; 2024-09-01 21:10)
DX: G93.41 Metabolic encephalopathy (principal); L89.153 Pressure ulcer of sacral region, stage 3; E87.0 Hyperosmolality and hypernatremia; E27.40 Unspecified adrenocortical insufficiency; E87.20 Acidosis, unspecified; E87.1 Hypo-osmolality and hyponatremia; N13.6 Pyonephrosis; E86.0 Dehydration; F10.26 Alcohol dependence with alcohol-induced persisting amnestic disorder; G40.909 Epilepsy, unspecified, not intractable, without status epilepticus; F32.A Depression, unspecified; Z93.59 Other cystostomy status; E87.6 Hypokalemia; E87.8 Other disorders of electrolyte and fluid balance, not elsewhere classified; F41.9 Anxiety disorder, unspecified; I73.00 Raynaud's syndrome without gangrene; K21.9 Gastro-esophageal reflux disease without esophagitis; M10.9 Gout, unspecified; K58.9 Irritable bowel syndrome, unspecified; Z87.440 Personal history of urinary (tract) infections; Z99.3 Dependence on wheelchair; M79.7 Fibromyalgia; N31.9 Neuromuscular dysfunction of bladder, unspecified; Z79.899 Other long term (current) drug therapy; Z82.49 Family history of ischemic heart disease and other diseases of the circulatory system; Z86.16 Personal history of COVID-19; Z88.0 Allergy status to penicillin; Z90.710 Acquired absence of both cervix and uterus; Z78.1 Physical restraint status; Z90.49 Acquired absence of other specified parts of digestive tract; Z87.01 Personal history of pneumonia (recurrent); Z88.6 Allergy status to analgesic agent; Z86.14 Personal history of Methicillin resistant Staphylococcus aureus infection
CPT/HCPCS: 36415; 62270; 70450; 74177; 80048; 80053; 80185; 80202; 80306; 80320; 81001; 81025; 82140; 82565; 82803; 82945; 83735; 83873; 84132; 84157; 84295; 85025; 85027; 85610; 85730; 87040; 87070; 87205; 87496; 87498; 87529; 87636; 87798; 88108; 89050; 95816; 96361; 96365; 96366; 96367; 96368; 96372; 96375; 96376; 99285

== ENCOUNTER 2024-09-09 18:44 | Inpatient (IN) | payer OTHER ==
[2024-09-09] MEDS ORDERED: ONDANSETRON 4 MG/2 ML VIAL IVP PRN (19:07)
[2024-09-09] MEDS ORDERED: NALOXONE 0.4 MG/ML 1 ML VIAL IV PRN (19:07)
--- NOTE | 2024-09-09 19:30 | ED ---
Recheck HPI - General Chief Complaint: Urogenital Stated Complaint: AMS Time Seen by Provider: 09/09/24 18:46 Source: EMS, RN notes reviewed, old records reviewed Mode of arrival: EMS Limitations: no limitations - History of Present Illness Initial Comments: This is a 39-year-old female who is excepted in transfer for need for IV antibiotics with urinary tract infection. Patient self has no complaints here in the ER she thinks she may have passed out with patient was transferred from [place] for failed outpatient treatment of UTI MD Complaint: abnormal lab (Urinary tract infection), needs IV antibiotics -: days(s) Returns Today for: needs IV antibiotics, persistent/worsening pain related to initial visit Symptoms Since Prior Visit: no new symptoms Context: called for abnormal lab result Treatments Prior to Arrival: Given Antibiotics on - Related Data Home Medications Medication Instructions Recorded Confirmed QUEtiapine FUMARATE 50 mg PO HS 11/25/19 09/09/24 Fludrocortisone [Florinef] 0.1 mg PO BID 07/19/21 09/09/24 Famotidine 40 mg PO HS 01/05/24 09/09/24 Oxybutynin Chloride [oxyBUTYnin 10 mg PO DAILY 01/05/24 09/09/24 chloride ER] Pyridoxine [Vitamin B-6] 50 mg PO DAILY 01/05/24 09/09/24 Thiamine [Vitamin B-1] 100 mg PO DAILY 01/05/24 09/09/24 Topiramate [Topamax] 50 mg PO TID 01/05/24 09/09/24 Cranberry/Vitamin C 60mg/250mg 1 tab PO DAILY 08/20/24 09/09/24 HYDROcodone/APAP 7.5-325MG [[place]ullivan 1 tab PO Q6H PRN 08/20/24 09/09/24 7.5-325] Lactulose 10 gm PO TID PRN 08/20/24 09/09/24 Multivit-Min/Iron/Folic/Lutein 1 tab PO DAILY 08/20/24 09/09/24 [Centrum Silver Women Tablet] Phenytoin Sodium Extended 100 mg PO TID 08/20/24 09/09/24 [Dilantin] Sodium Bicarbonate Tab 650 mg PO BID 08/20/24 09/09/24 Venlafaxine HCl [Effexor] 75 mg PO TID 08/20/24 09/09/24 allopurinoL [Zyloprim] 100 mg PO DAILY 08/20/24 09/09/24 busPIRone HCl [Buspar] 5 mg PO TID 08/20/24 09/09/24 Baclofen [Lioresal] 20 mg PO TID 09/09/24 09/09/24 Fluconazole [Diflucan] 150 mg PO DIRECTED 09/09/24 09/09/24 Gabapentin 1,200 mg PO TID 09/09/24 09/09/24 Zolpidem Tartrate [Ambien Cr] 12.5 mg PO HS 09/09/24 09/09/24 Allergies Allergy/AdvReac Type Severity Reaction Status Date / Time levetiracetam [From [facility]] Allergy Rash/Hives Verified 09/09/24 19:45 Penicillins Allergy "STOPPED Verified 09/09/24 19:45 BREATHING" NSAIDS (Non-Steroidal AdvReac "MAY CAUSE Verified 09/09/24 19:45 Anti-Inflamma ULCERS R/T BARIATRIC SX" Review of Systems ROS Statement: Those systems with pertinent positive or pertinent negative responses have been documented in the HPI. ROS Other: All systems not noted in ROS Statement are negative. Past Medical History Past Medical History: Fibromyalgia, GERD/Reflux, Pneumonia, Seizure Disorder Additional Past Medical History / Comment(s): has seizures on a daily basis one or more a day, cHRONIC NECK/BACK PAIN, N/T FINGERS AND TOES, RAYNAUDS SYN. MENIERE'S,tinnitus, past uterine prolpase(sx) IBS, MUSCLE WEAKNESS, USES WALKER OR W/C History of Any Multi-Drug Resistant Organisms: ESBL, MRSA Date of last positivie culture/infection: 01/06/24 - ESBL; 08/18/22 - MRSA MDRO Source:: URINE - ESBL; Urine - MRSA Past Surgical History: Bariatric Surgery, Cholecystectomy, Hysterectomy Additional Past Surgical History / Comment(s): EYE SX (MUSCLES), radha en y 2012 Past Anesthesia/Blood Transfusion Reactions: No Reported Reaction Additional Past Anesthesia/Blood Transfusion Reaction / Comment(s): clausterphobia Past Psychological History: Anxiety, Depression Smoking Status: Unknown if ever smoked Past Alcohol Use History: Unable to Obtain Past Drug Use History: Unable to Obtain, Marijuana - Past Family History Mother Family Medical History: Cancer Additional Family Medical History / Comment(s): TONGUE Father Family Medical History: Hypertension General Exam General appearance: alert, in no apparent distress Head exam: Present: atraumatic, normocephalic, normal inspection Eye exam: Present: normal appearance, PERRL, EOMI. Absent: scleral icterus, conjunctival injection, periorbital swelling ENT exam: Present: normal exam, mucous membranes moist Neck exam: Present: normal inspection. Absent: tenderness, meningismus, lymphadenopathy Respiratory exam: Present: normal lung sounds bilaterally. Absent: respiratory distress, wheezes, rales, rhonchi, stridor Cardiovascular Exam: Present: regular rate, normal rhythm, normal heart sounds. Absent: systolic murmur, diastolic murmur, rubs, gallop, clicks GI/Abdominal exam: Present: soft, normal bowel sounds. Absent: distended, tend erness, guarding, rebound, rigid Extremities exam: Present: normal inspection, full ROM, normal capillary refill. Absent: tenderness, pedal edema, joint swelling, calf tenderness Back exam: Present: normal inspection Neurological exam: Present: alert, oriented X3, CN II-XII intact Psychiatric exam: Present: normal affect, normal mood Skin exam: Present: warm, dry, intact, normal color. Absent: rash Course Vital Signs 09/09/24 09/09/24 18:46 21:45 Temperature 97.6 F Pulse Rate 117 H 135 H Respiratory 20 20 Rate Blood Pressure 121/79 125/83 O2 Sat by Pulse 100 97 Oximetry - Reevaluation(s) Reevaluation #1: 09/09/24 20:17 Medical records reviewed Patient transfer paperwork is reviewed including lab test with normal renal function Reevaluation #2: 09/09/24 20:17 Patient is asymptomatic here in the ER Reevaluation #3: 09/09/24 20:17 Patient informed of results questions answered Reevaluation #4: Was pt. sent in by a medical professional or institution (, PA, AIRCRAFT [employer]IPMENT MECHANIC, urgent care, hospital, or custodial...) When possible be specific @ -no Did you speak to anyone other than the patient for history (EMS, parent, family, police, friend...)? What history was obtained from this source @ -no Did you review nursing and triage notes (agree or disagree)? Why? @ -agree Are old charts reviewed (outside hosp., previous admission, EMS record, old EKG, old radiological studies, urgent care reports/EKG's, custodial records)? Report findings @ -yes Differential Diagnosis (chest pain, altered mental status, abdominal pain women, abdominal pain men, vaginal bleeding, weakness, fever, dyspnea, syncope, headache, dizziness, GI bleed, back pain, seizure, CVA, palpatations, mental health, musculoskeletal)? @ -prior EKG interpreted by me (3pts min.). @ -yes X-rays interpreted by me (1pt min.). @ -no CT interpreted by me (1pt min.). @ -no U/S interpreted by me (1pt. min.). @ -no What testing was considered but not performed or refused? (CT, X-rays, U/S, labs )? Why? @ -none What meds were considered but not given or refused? Why? @ -none Did you discuss the management of the patient with other professionals (professionals i.e. , PA, [employer]CRAFT [employer]QUIPMENT MECHANIC, lab, RT, psych nurse, geriatric social work professor, drug inspector, teacher, quarantine officer, gearcase assembler)? Give summary @ -no Was smoking cessation discussed for >3mins.? @ -no Was critical care preformed (if so, how long)? @ -no Were there social determinants of health that impacted care today? How? (Homelessness, low income, unemployed, alcoholism, drug addiction, transportation, low edu. Level, literacy, decrease access to med. care, fpc, rehab)? @ -none Was there de-escalation of care discussed even if they declined (Discuss DNR or withdrawal of care, Hospice)? DNR status @ -no What co-morbidities impacted this encounter? (DM, HTN, Smoking, COPD, CAD, Cancer, CVA, ARF, Chemo, Hep., AIDS, mental health diagnosis, sleep apnea, morbid obesity)? @ -none Was patient admitted / discharged? Hospital course, mention meds given and route, prescriptions, significant lab abnormalities, going to OR and other pertinent info. @ - 39 female failed outpatient treatment UTI with significant UTI with resistance. Patient will be admitted for IV antibiotics Admitted Undiagnosed new problem with uncertain prognosis? @ -no Drug Therapy requiring intensive monitoring for toxicity (Heparin, Nitro, Insulin, Cardizem)? @ -no Were any procedures done? @ -no Diagnosis/symptom? @ -UTI with resistance, altered mental status Acute, or Chronic, or Acute on Chronic? @ -Acute Uncomplicated (without systemic symptoms) or Complicated (systemic symptoms)? @ -Complicated Side effects of treatment? @ -no Exacerbation, Progression, or Severe Exacerbation? @ -exacerbation Poses a threat to life or bodily function? How? (Chest pain, [place], [place], pneumonia, PE, COPD, DKA, ARF, appy, cholecystitis, CVA, Diverticulitis, Homicidal, [place] icidal, threat to staff... and all critical care pts) @ -yes significantly resistant urinary tract infection - Consultations Consultation #1: Spoke with [facility] who agrees to admit this patient Medical Decision Making - Medical Decision Making 39 female failed outpatient treatment UTI with significant UTI with resistance. Patient will be admitted for IV antibiotics - Lab Data Result diagrams: 09/14/24 04:05 09/15/24 08:30 - EKG Data -: EKG Interpreted by Me (EKG sinus tachycardia 133 UT 120 QRS 75 QTc 381) Disposition Clinical Impression: UTI (urinary tract infection), YARELIS (acute kidney injury), Infection due to extended spectrum beta lactamase (ESBL) producing Proteus mirabilis, History of ESBL E. coli infection, Dehydration Disposition: ADMITTED IP TO THIS HOSP Condition: Fair Is patient prescribed a controlled substance at d/c from ED?: No Time of Disposition: 20:00
[2024-09-09] MEDS: SODIUM CHLORIDE 0.9% 1,000 ML IV SCH (19:37)
[2024-09-09 20:22] LABS: Basophils # (A) 0.1 k/uL (0-0.2); Basophils % (A) 0 %; Eosinophils # (A) 0.2 k/uL (0-0.7); Eosinophils % (A) 1 %; HGB 13.6 gm/dL (11.4-16.0); Hypochromasia Moderate; Lymphocytes # (A) 1.5 k/uL (1.0-4.8); Lymphocytes % (A) 9 %; MCHC 30.9 g/dL (31.0-37.0); Mean Platelet Volume 7.3; Monocytes # (A) 0.4 k/uL (0-1.0); Monocytes % (A) 3 %; Neutrophils # (A) 14.4 k/uL (1.3-7.7); Neutrophils % (A) 86 %; Platelet Count 297 k/uL (150-450); RBC 4.68 m/uL (3.80-5.40); RDW 15.6 % (11.5-15.5); WBC 16.7 k/uL (3.8-10.6)
[2024-09-09 20:30] LABS: Appearance,Urine Clear (Clear); Bacteria,Urine Occasional /hpf; Bilirubin,Urine Negative (Negative); Blood,Urine Negative (Negative); Budding Yeast,Urine Few /hpf; Color,Urine Colorless; Glucose,Urine (UA) Negative (Negative); Ketones,Urine Negative (Negative); Leukocyte Esterase,Urine Large (Negative); Mucus,Urine Rare /hpf; Nitrite,Urine Positive (Negative); Protein,Urine 1+ (Negative); RBC,Urine 11 /hpf (0-5); Specific Gravity,Urine 1.013 (1.001-1.035); Urobilinogen,Urine <2.0 mg/dL (<2.0); WBC,Urine 36 /hpf (0-5)
[2024-09-09 20:31] LABS: INR 0.9 (<1.2); Partial Thromboplastin Time 23.3 sec (22.0-30.0); Prothrombin Time 10.4 sec (10.0-12.5)
[2024-09-09 20:43] LABS: ALT 63 U/L (4-34); AST 37 U/L (14-36); African American GFR (CKD) >90 (>60 ml/min/1.73 sqM); Albumin 4.1 g/dL (3.5-5.0); Alkaline Phosphatase 152 U/L (38-126); Anion Gap 8 mmol/L; Blood Urea Nitrogen 25 mg/dL (7-17); Calcium 9.8 mg/dL (8.4-10.2); Carbon Dioxide 25 mmol/L (22-30); Chloride 116 mmol/L (98-107); Glucose 123 mg/dL (74-99); Magnesium 2.2 mg/dL (1.6-2.3); Non-African American GFR(CKD) >90 (>60 ml/min/1.73 sqM); Phosphorus 3.4 mg/dL (2.5-4.5); Potassium 4.8 mmol/L (3.5-5.1); Sodium 149 mmol/L (137-145); Total Bilirubin 0.4 mg/dL (0.2-1.3); Total Protein 6.8 g/dL (6.3-8.2)
[2024-09-09 20:52] LABS: NT-Pro-B-Type Natriuretic Pept 69 pg/mL
[2024-09-09] MEDS ORDERED: MEROPENEM 1 GM in SODIUM CHLORIDE 0.9% 100 ML IVPB SCH (21:00)
[2024-09-09] MEDS: MORPHINE SULFATE 4 MG/ML SYRINGE IV PRN (22:18)
[2024-09-10] MEDS: MEROPENEM 500 MG in SODIUM CHLORIDE 0.9% 100 ML IVPB SCH (00:55)
--- NOTE | 2024-09-10 07:39 | P.HPIM ---
History of Present Illness This is a pleasant 39 years old female with past medical history of multiple medical problems as below. She was transferred from [facility] for possible UTI that failed treatment. Patient has history of Warnicke's Korsakoff syndrome and seizures/epilepsy, history of suprapubic catheter which is not present now, neurofibromatosis, Raynaud's disease, legally blind and hearing difficulty, clubfoot and GERD. Patient currently looks confused, she does not know where she is at, she does not remember she came from another hospital or facility, she thinks is 2004 and she does not know the name of the president and she does not know why she is here. Other than then she looks, pleasant and relaxed sitting up in bed. Denies any specific complaint to me. Patient also slow to respond. As per records from [facility] she was recently treated for UTI and altered mental status 08/20-08/24. Then she was in the emergency room for altered mental status where she was treated for 2 days with IV fluid and discharged home to return back in 24 hours not eating and drinking. I called the Mr. Thapa over the phone and he told me she has been sick for about a month super tired sleepy, not eating well, not drinking well not doing anything. He states that she has been treated for 2 infection both of them were UTI. She is also had COVID. Prior to that her mentation was more awake and alert and oriented to the surrounding. As per there is no seizure-like activity. Patient is bedbound and not walking since 2019 where she was diagnosed with multiple vitamin deficiency and [facility] including vitamin B1, B6 and B12 deficiency among others. Also patient has been feeling generalized dizziness. He confirms to me she is full code. Patient is tachycardic with heart rate 116, 135 She had a fever of 99.2. Mildly tachypneic with breathing rate around 20. Labs showing leukocytosis which is worsening were 13,000 at [facility] currently 16.6. Sodium is elevated at 149, liver enzymes mildly elevated. INR is unremarkable, troponin is negative. Urine analysis suspicious for infection EKG showing sinus tachycardia at 133. CT of the brain done at [facility] showing no acute process per report. Patient currently on meropenem and normal saline 130 mL/h. Will resume her home medication but we lowered Seroquel from 50 down to 25 and we held her Ambien of 12.5 mg. Review of Systems Review of systems CONSTITUTIONAL: No fever, no malaise, no fatigue. HEENT: No recent visual problems or hearing problems. Denied any sore throat. CARDIOVASCULAR: No orthopnea, PND, no palpitations, no syncope. PULMONARY: No shortness of breath, no cough, no hemoptysis. GASTROINTESTINAL: No diarrhea, no nausea, no vomiting, no abdominal pain. Normoactive bowel sounds. NEUROLOGICAL: No headaches, no weakness, no numbness. HEMATOLOGICAL: Denies any bleeding or petechiae. GENITOURINARY: Denies any burning micturition, frequency, or urgency. MUSCULOSKELETAL/RHEUMATOLOGICAL: Denies any joint pain, swelling, or any muscle pain. ENDOCRINE: Denies any polyuria or polydipsia. Past Medical History Past Medical History: Fibromyalgia, GERD/Reflux, Pneumonia, Seizure Disorder Additional Past Medical History / Comment(s): has seizures on a daily basis one or more a day, cHRONIC NECK/BACK PAIN, N/T FINGERS AND TOES, RAYNAUDS SYN. MENIERE'S,tinnitus, past uterine prolpase(sx) IBS, MUSCLE WEAKNESS, USES WALKER OR W/C History of Any Multi-Drug Resistant Organisms: ESBL, MRSA Date of last positivie culture/infection: 01/06/24 - ESBL; 08/18/22 - MRSA MDRO Source:: URINE - ESBL; Urine - MRSA Past Surgical History: Bariatric Surgery, Cholecystectomy, Hysterectomy Additional Past Surgical History / Comment(s): EYE SX (MUSCLES), radha en y 2012 Past Anesthesia/Blood Transfusion Reactions: No Reported Reaction Additional Past Anesthesia/Blood Transfusion Reaction / Comment(s): clausterphobia Past Psychological History: Anxiety, Depression Smoking Status: Unknown if ever smoked Past Alcohol Use History: Unable to Obtain Past Drug Use History: Unable to Obtain, Marijuana - Past Family History Mother Family Medical History: Cancer Additional Family Medical History / Comment(s): TONGUE Father Family Medical History: Hypertension Medications and Allergies Home Medications Medication Instructions Recorded Confirmed Type QUEtiapine FUMARATE 50 mg PO HS 11/25/19 09/09/24 History Fludrocortisone [Florinef] 0.1 mg PO BID 07/19/21 09/09/24 History Famotidine 40 mg PO HS 01/05/24 09/09/24 History Oxybutynin Chloride [oxyBUTYnin 10 mg PO DAILY 01/05/24 09/09/24 History chloride ER] Pyridoxine [Vitamin B-6] 50 mg PO DAILY 01/05/24 09/09/24 History Thiamine [Vitamin B-1] 100 mg PO DAILY 01/05/24 09/09/24 History Topiramate [Topamax] 50 mg PO TID 01/05/24 09/09/24 History Cranberry/Vitamin C 60mg/250mg 1 tab PO DAILY 08/20/24 09/09/24 History HYDROcodone/APAP 7.5-325MG [[place] 1 tab PO Q6H PRN 08/20/24 09/09/24 History 7.5-325] Lactulose 10 gm PO TID PRN 08/20/24 09/09/24 History Multivit-Min/Iron/Folic/Lutein 1 tab PO DAILY 08/20/24 09/09/24 History [Centrum Silver Women Tablet] Phenytoin Sodium Extended 100 mg PO TID 08/20/24 09/09/24 History [Dilantin] Sodium Bicarbonate Tab 650 mg PO BID 08/20/24 09/09/24 History Venlafaxine HCl [Effexor] 75 mg PO TID 08/20/24 09/09/24 History allopurinoL [Zyloprim] 100 mg PO DAILY 08/20/24 09/09/24 History busPIRone HCl [Buspar] 5 mg PO TID 08/20/24 09/09/24 History Baclofen [Lioresal] 20 mg PO TID 09/09/24 09/09/24 History Fluconazole [Diflucan] 150 mg PO DIRECTED 09/09/24 09/09/24 History Gabapentin 1,200 mg PO TID 09/09/24 09/09/24 History Zolpidem Tartrate [Ambien Cr] 12.5 mg PO HS 09/09/24 09/09/24 History Allergies Allergy/AdvReac Type Severity Reaction Status Date / Time levetiracetam [From [facility]] Allergy Rash/Hives Verified 09/09/24 19:45 Penicillins Allergy "STOPPED Verified 09/09/24 19:45 BREATHING" NSAIDS (Non-Steroidal AdvReac "MAY CAUSE Verified 09/09/24 19:45 Anti-Inflamma ULCERS R/T BARIATRIC SX" Physical Exam Vitals: Vital Signs Temp Pulse Pulse Resp BP BP Pulse Ox 09/10/24 04:31 99.2 F 116 H 16 104/68 96 09/09/24 21:45 135 H 20 125/83 97 09/09/24 18:46 97.6 F 117 H 20 121/79 100 Intake and Output 09/09/24 09/10/24 09/10/24 22:59 06:59 14:59 Output Total 825 Balance -825 Output: Urine 825 Other: Weight 38.555 kg -GENERAL: The patient is alert and calm while decreased orientation x0-1, , not in any acute distress. Thin built HEENT: Pupils are round and equally reacting to light. EOMI. No scleral icterus. No conjunctival pallor. Normocephalic, atraumatic. No pharyngeal erythema. No thyromegaly. CARDIOVASCULAR: S1 and S2 present. No murmurs, rubs, or gallops. PULMONARY: Chest is clear to auscultation, no wheezing , no crackles. ABDOMEN: Soft, mild suprapubic tenderness and left upper quadrant tenderness , nondistended, normoactive bowel sounds. No palpable organomegaly. Urostomy in the right upper quadrant with no surrounding tenderness or leak or cellulitis MUSCULOSKELETAL: No joint swelling or deformity. EXTREMITIES: No cyanosis, clubbing, or pedal edema. NEUROLOGICAL: Gross neurological examination did not reveal any focal deficits. SKIN: No rashes. no petechiae. Results CBC & Chem 7: 09/09/24 20:13 09/09/24 20:13 Labs: Abnormal Lab Results - Last 24 Hours (Table) 09/09/24 09/09/24 09/09/24 Range/Units 20:13 20:13 20:13 WBC 16.7 H (3.8-10.6) k/uL MCHC 30.9 L (31.0-37.0) g/dL RDW 15.6 H (11.5-15.5) % Neutrophils # 14.4 H (1.3-7.7) k/uL Sodium 149 H (137-145) mmol/L Chloride 116 H (98-107) mmol/L BUN 25 H (7-17) mg/dL Glucose 123 H (74-99) mg/dL AST 37 H (14-36) U/L ALT 63 H (4-34) U/L Alkaline Phosphatase 152 H (38-126) U/L Urine Protein 1+ H (Negative) Urine Nitrite Positive H (Negative) Ur Leukocyte Esterase Large H (Negative) Urine RBC 11 H (0-5) /hpf Urine WBC 36 H (0-5) /hpf Urine Bacteria Occasional H (None) /hpf Urine Mucus Rare H (None) /hpf Urine Yeast (Budding) Few H (None) /hpf Assessment and Plan Assessment: Altered mental status most likely toxic/metabolic encephalopathy. Rule out s eizure disorder Acute urinary tract infection, recurrent could be related to urostomy in the right upper quadrant Possible sepsis with tachycardia tachypnea and fever and leukocytosis Hypernatremia Seizure disorder History of hysterectomy, gastric bypass procedure and urostomy Drug allergy to penicillin causing anaphylaxis History of Warnicke's Korsakoff syndrome History of small bowel obstruction and fecal impaction Debility History of peptic ulcer disease Neurofibromatosis Drains disease Legally blind Hearing difficulty History of GERD Plan: Continue with meropenem Continue with normal saline Monitor sodium level Check ammonia level, vimentin level, procalcitonin, blood culture and CRP Will consult neurology service for further evaluation Consult infectious disease team Labs and medication were reviewed.. Continue same treatment. Continue with symptomatic treatment. Resume home medication. Monitor labs and vitals. DVT and GI prophylaxis. Further recommendations as per clinical course of the patient DVT prophylaxis: Subcutaneous heparin GI Prophylaxis: Pepcid PT/OT: Pending Prognosis is guarded
[2024-09-10 08:26] LABS: Lactic Acid, Venous 0.9 mmol/L (0.7-2.0)
[2024-09-10] MEDS: PANTOPRAZOLE 40 MG/10 ML VIAL IV SCH (09:07)
[2024-09-10] MEDS: busPIRone HCl 5 MG TAB PO SCH (09:08)
[2024-09-10] MEDS: BACLOFEN 10 MG TAB PO SCH (09:08)
[2024-09-10] MEDS: GABAPENTIN 400 MG CAP PO SCH (09:08)
[2024-09-10] MEDS: FLUDROCORTISONE 0.1 MG TAB PO SCH (09:08)
[2024-09-10] MEDS: allopurinoL 100 MG TAB PO SCH (09:08)
[2024-09-10] MEDS: VENLAFAXINE HCL 75 MG TAB PO SCH (09:09)
[2024-09-10] MEDS: TOPIRAMATE 25 MG TAB PO SCH ×2 (09:09→20:34)
[2024-09-10] MEDS: PHENYTOIN SODIUM EXTENDED 100 MG CAP PO SCH (09:09)
[2024-09-10 11:16] LABS: HCT 38.8 % (37.2-46.3); MCH 30.1 pg (27.0-32.0); MCHC 30.9 g/dL (32.0-37.0); MCV 97.2 FL (80.0-97.0); Mean Platelet Volume 11.4 FL (9.5-12.2); NRBC Per 100 WBC 0 X 10*3/uL (0.00-0.01); Platelet Count 210 X 10*3/uL (140-440); RBC 3.99 X 10*6/uL (4.10-5.20); RDW 14.9 % (11.5-14.5); WBC 12.53 X 10*3/uL (4.50-10.00)
[2024-09-10 11:17] LABS: Basophils # (A) 0.04 X 10*3/uL (0.00-0.10); Basophils % (A) 0.3 %; Eosinophils # (A) 0.07 X 10*3/uL (0.04-0.35); Eosinophils % (A) 0.6 %; Lymphocytes # (A) 1.48 X 10*3/uL (0.90-5.00); Lymphocytes % (A) 11.8 %; Neutrophils # (A) 10.38 X 10*3/uL (1.80-7.70); Neutrophils % (A) 82.8 %
[2024-09-10] MEDS: COLLAGENASE 250 UNIT/GM OINTMENT 30 GM TUBE TOPICAL SCH (12:20)
[2024-09-10 12:51] LABS: Appearance,Urine Cloudy (Clear); Bacteria,Urine Rare /hpf; Bilirubin,Urine Negative (Negative); Blood,Urine Negative (Negative); Budding Yeast,Urine Few /hpf; Color,Urine Colorless; Glucose,Urine (UA) Negative (Negative); Ketones,Urine Negative (Negative); Leukocyte Esterase,Urine Large (Negative); Mucus,Urine Rare /hpf; Nitrite,Urine Positive (Negative); Protein,Urine Trace (Negative); Specific Gravity,Urine 1.009 (1.001-1.035); Urobilinogen,Urine <2.0 mg/dL (<2.0); WBC,Urine 39 /hpf (0-5)
--- NOTE | 2024-09-10 13:18 | P.CNNES ---
History of Present Illness Consult date: 09/10/24 Requesting physician: Enrico E Sheet Reason for Consult: ams hx of seizure History of Present Illness: Patient is a 39-year-old woman with history of epilepsy, Warnicke encephalopathy, Raynaud's, recurrent urinary tract infection transferred to our facility because of need for IV antibiotic for urinary tract infection.. History is obtained from medical record. It seems the patient was transferred from [facility] for failed outpatient treatment of acute urinary tract infection and was transferred for escalation of care and needing IV antibiotic. Will see the patient she seems comfortable and did not seem confused. She could not provide history. Patient was last seen by Dr. Lindo on 09/01/2024. Please refer to his note for further details. Patient had extensive workup for altered mental status and the CSF study was negative for any CSF infection. EEG was notable. Please refer to his note for further details. Some of the workup during this hospital visit consisted of: Patient is afebrile. White blood cell initial presentation was 16.7 thousand and repeat is 12.5K. Sodium is 149 AST is 37 ALT 63 Ammonia is less than 9 Serum glucose is 123 Calcium is 9.8, phosphorus is 3.48 magnesium is 2.2. Plasma lactic acid vein is 1.9 Urinalysis is nitrite is positive, leukocyte esterase is large, urine white blood cells 36 Dilantin level is less than 3. Review of Systems Limited but as per HPI. Past Medical History Past Medical History: Fibromyalgia, GERD/Reflux, Pneumonia, Seizure Disorder Additional Past Medical History / Comment(s): has seizures on a daily basis one or more a day, cHRONIC NECK/BACK PAIN, N/T FINGERS AND TOES, RAYNAUDS SYN. MENIERE'S,tinnitus, past uterine prolpase(sx) IBS, MUSCLE WEAKNESS, USES WALKER OR W/C History of Any Multi-Drug Resistant Organisms: ESBL, MRSA Date of last positivie culture/infection: 01/06/24 - ESBL; 08/18/22 - MRSA MDRO Source:: URINE - ESBL; Urine - MRSA Past Surgical History: Bariatric Surgery, Cholecystectomy, Hysterectomy Additional Past Surgical History / Comment(s): EYE SX (MUSCLES), radha en y 2012 Past Anesthesia/Blood Transfusion Reactions: No Reported Reaction Additional Past Anesthesia/Blood Transfusion Reaction / Comment(s): clausterphobia Past Psychological History: Anxiety, Depression Smoking Status: Unknown if ever smoked Past Alcohol Use History: Unable to Obtain Past Drug Use History: Unable to Obtain, Marijuana - Past Family History Mother Family Medical History: Cancer Additional Family Medical History / Comment(s): TONGUE Father Family Medical History: Hypertension Medications and Allergies Home Medications Medication Instructions Recorded Confirmed Type QUEtiapine FUMARATE 50 mg PO HS 11/25/19 09/09/24 History Fludrocortisone [Florinef] 0.1 mg PO BID 07/19/21 09/09/24 History Famotidine 40 mg PO HS 01/05/24 09/09/24 History Oxybutynin Chloride [oxyBUTYnin 10 mg PO DAILY 01/05/24 09/09/24 History chloride ER] Pyridoxine [Vitamin B-6] 50 mg PO DAILY 01/05/24 09/09/24 History Thiamine [Vitamin B-1] 100 mg PO DAILY 01/05/24 09/09/24 History Topiramate [Topamax] 50 mg PO TID 01/05/24 09/09/24 History Cranberry/Vitamin C 60mg/250mg 1 tab PO DAILY 08/20/24 09/09/24 History HYDROcodone/APAP 7.5-325MG [[place] 1 tab PO Q6H PRN 08/20/24 09/09/24 History 7.5-325] Lactulose 10 gm PO TID PRN 08/20/24 09/09/24 History Multivit-Min/Iron/Folic/Lutein 1 tab PO DAILY 08/20/24 09/09/24 History [Centrum Silver Women Tablet] Phenytoin Sodium Extended 100 mg PO TID 08/20/24 09/09/24 History [Dilantin] Sodium Bicarbonate Tab 650 mg PO BID 08/20/24 09/09/24 History Venlafaxine HCl [Effexor] 75 mg PO TID 08/20/24 09/09/24 History allopurinoL [Zyloprim] 100 mg PO DAILY 08/20/24 09/09/24 History busPIRone HCl [Buspar] 5 mg PO TID 08/20/24 09/09/24 History Baclofen [Lioresal] 20 mg PO TID 09/09/24 09/09/24 History Fluconazole [Diflucan] 150 mg PO DIRECTED 09/09/24 09/09/24 History Gabapentin 1,200 mg PO TID 09/09/24 09/09/24 History Zolpidem Tartrate [Ambien Cr] 12.5 mg PO HS 09/09/24 09/09/24 History Allergies Allergy/AdvReac Type Severity Reaction Status Date / Time levetiracetam [From [facility]] Allergy Rash/Hives Verified 09/09/24 19:45 Penicillins Allergy "STOPPED Verified 09/09/24 19:45 BREATHING" NSAIDS (Non-Steroidal AdvReac "MAY CAUSE Verified 09/09/24 19:45 Anti-Inflamma ULCERS R/T BARIATRIC SX" Physical Examination - Vital Signs Vital Signs: Vital Signs Temp Pulse Pulse Resp BP BP Pulse Ox 09/10/24 07:55 99.2 F 100 16 105/65 99 09/10/24 04:31 99.2 F 116 H 16 104/68 96 09/09/24 21:45 135 H 20 125/83 97 09/09/24 18:46 97.6 F 117 H 20 121/79 100 Intake and Output 09/09/24 09/10/24 09/10/24 22:59 06:59 14:59 Output Total 825 Balance -825 Output: Urine 825 Other: Weight 38.555 kg General: Lying in bed and is not in acute distress. Neuro: Patient is awake alert oriented to self time. She stated she is in [facility]. Patient is mildly slow following commands. But she is following commands appropriately. She was able to name objects correctly such as pen and glasses. No aphasia from limited language Pupils are round about 4 mm and reactive to light. Visual massey are full to confrontation. Extraocular movement is intact no nystagmus. No facial weakness. No dysarthria. Motor: The strength in the upper extremity is 5 out of 5, in the lowers is about 3-4 out of 5. Reflexes is about 0 brachioradialis is about a 1 bilaterally. Results - Laboratory Findings CBC and BMP: 09/10/24 07:25 09/09/24 20:13 Abnormal Lab Findings: Abnormal Labs 09/09/24 09/09/24 09/09/24 20:13 20:13 20:13 WBC 16.7 H RBC MCV MCHC 30.9 L RDW 15.6 H Immature Gran # Neutrophils # 14.4 H Sodium 149 H Chloride 116 H BUN 25 H Glucose 123 H AST 37 H ALT 63 H Alkaline Phosphatase 152 H C-Reactive Protein Urine Appearance Urine Protein 1+ H Urine Nitrite Positive H Ur Leukocyte Esterase Large H Urine RBC 11 H Urine WBC 36 H Urine Bacteria Occasional H Urine Mucus Rare H Urine Yeast (Budding) Few H 09/10/24 09/10/24 09/10/24 07:25 07:25 11:57 WBC 12.53 H RBC 3.99 L MCV 97.2 H MCHC 30.9 L RDW 14.9 H Immature Gran # 0.06 H Neutrophils # 10.38 H Sodium Chloride BUN Glucose AST ALT Alkaline Phosphatase C-Reactive Protein 6.2 H Urine Appearance Cloudy H Urine Protein Trace H Urine Nitrite Positive H Ur Leukocyte Esterase Large H Urine RBC Urine WBC 39 H Urine Bacteria Rare H Urine Mucus Rare H Urine Yeast (Budding) Few H Assessment and Plan Assessment: This is a 39-year-old woman with history of epilepsy, Warnicke encephalopathy, recurrent urinary tract infection who was transferred from [facility] for escalation of care of her urinary tract infection since she failed her outpatient treatment and needed IV antibiotic. Patient was in our facility a f ew weeks ago and had extensive neurologic workup and had CSF study which was unremarkable for any underlying infection as well as an EEG which was normal. Altered mental status seems due to septic encephalopathy from her urosepsis--currently she was responding to questions correctly and following s imple commands. Acute urinary tract infection History of epilepsy on Dilantin History of Wernicke encephalopathy History of Mnire's disease History of Raynaud's disease History of recent COVID-19 infection History of chronic indwelling suprapubic catheter Wheelchair-bound History of recurrent urinary tract infection History of GERD History of anxiety History of depression Plan: Patient phenytoin 100 mg, 3 times daily is resumed. It seems per our last note her outpatient neurologist Dr. Jo has stopped Topamax and place her on Dilantin. As correctly stated by Dr. Lindo Topamax can decrease appetite and make weight loss further worse. Therefore I went down on Topamax from 50 mg TID that was resumed by the primary team. I will go down to 50mg bid and then by tomorrow 50mg daily then day after stop it. Seizure precautions seizure pads Recommend the patient to follow-up with her outpatient neurologist within 3 weeks Will defer the rest of the medical management to the primary team. Thank you for the consultation Time with Patient: Greater than 30
[2024-09-10 13:40] LABS: ALT 68 U/L (4-34); African American GFR (CKD) >90 (>60 ml/min/1.73 sqM); Albumin 3.8 g/dL (3.5-5.0); Albumin/Globulin Ratio 1.4; Anion Gap 9 mmol/L; Blood Urea Nitrogen 21 mg/dL (7-17); Carbon Dioxide 18 mmol/L (22-30); Chloride 112 mmol/L (98-107); Globulin 2.7 g/dL; Glucose 94 mg/dL (74-99); Non-African American GFR(CKD) >90 (>60 ml/min/1.73 sqM); Sodium 139 mmol/L (137-145); Total Bilirubin 0.7 mg/dL (0.2-1.3); Total Protein 6.5 g/dL (6.3-8.2)
[2024-09-10 13:41] LABS: AST 52 U/L (14-36); Alkaline Phosphatase 143 U/L (38-126); Potassium 4.6 mmol/L (3.5-5.1)
[2024-09-10 13:43] LABS: C Reactive Protein 6.2 mg/dL (<1.0); Phenytoin (Dilantin) <3.0 ug/mL
[2024-09-10] MEDS: QUEtiapine 25 MG TAB PO SCH (20:35)
[2024-09-10] MEDS: MELATONIN 3 MG TABLET PO SCH (20:35)
[2024-09-10] MEDS: HYDROcodone/APAP 7.5-325MG 1 EACH TAB PO PRN (20:36)
[2024-09-10] MEDS ORDERED: ZOLPIDEM 5 MG TAB PO SCH (21:00)
--- NOTE | 2024-09-10 23:06 | P.CONS ---
History of Present Illness - Reason for Consult Consult date: 09/10/24 Sepsis Requesting physician: Enrico E Sheet - Chief Complaint Weakness mental status changes x 1 day - History of Present Illness Patient is a 39-year-old female with multiple comorbidities including fibromyalgia reflux pneumonia seizure disorder patient also have a urostomy and recent multiple admission to the hospital for a UTI patient has been transferred to [facility] from [facility] where patient apparently has been diagnosed with a UTI failing outpatient treatment however is not very clear or specific antibiotic were given the patient apparently has some mental status changes seem to be lethargic to remain her symptoms and she did have low-grade fever of 99.2 and elevated white count of 13,000 at [facility] urine was positive on arrival to this facility patient did have low-grade fever of 99.2 F tachycardic at 1 point but not hypotensive or hypoxic patient did have a white count of 16.7 with a left shift creatinine 0.79 sodium was elevated at 149 liver enzymes mildly elevated she did have a positive UA unfortunately no culture were done and the patient was started on meropenem infectious disease was consulted for further management of antibiotic therapy patient at time of evaluation seem to be her baseline as compared to her previous evaluation did answer some simple question no chest pain no cough no abdominal pain patient also have a stage IV sacral pressure ulcer but did not have any symptoms referable to the same area Review of Systems Positive points has been mentioned in HPI complete review could not be obtained because of his underlying mental status Past Medical History Past Medical History: Fibromyalgia, GERD/Reflux, Pneumonia, Seizure Disorder Additional Past Medical History / Comment(s): has seizures on a daily basis one or more a day, cHRONIC NECK/BACK PAIN, N/T FINGERS AND TOES, RAYNAUDS SYN. MENI ERE'S,tinnitus, past uterine prolpase(sx) IBS, MUSCLE WEAKNESS, USES WALKER OR W/C History of Any Multi-Drug Resistant Organisms: ESBL, MRSA Year Discovered:: 01/06/24 - ESBL; 08/18/22 - MRSA MDRO Source:: URINE - ESBL; Urine - MRSA Past Surgical History: Bariatric Surgery, Cholecystectomy, Hysterectomy Additional Past Surgical History / Comment(s): EYE SX (MUSCLES), radha en y 2012 Past Anesthesia/Blood Transfusion Reactions: No Reported Reaction Additional Past Anesthesia/Blood Transfusion Reaction / Comm: clausterphobia Past Psychological History: Anxiety, Depression Smoking Status: Unknown if ever smoked Past Alcohol Use History: Unable to Obtain Past Drug Use History: Unable to Obtain, Marijuana - Past Family History Mother Family Medical History: Cancer Additional Family Medical History / Comment(s): TONGUE Father Family Medical History: Hypertension Medications and Allergies Home Medications Medication Instructions Recorded Confirmed Type QUEtiapine FUMARATE 50 mg PO HS 11/25/19 09/09/24 History Fludrocortisone [Florinef] 0.1 mg PO BID 07/19/21 09/09/24 History Famotidine 40 mg PO HS 01/05/24 09/09/24 History Oxybutynin Chloride [oxyBUTYnin 10 mg PO DAILY 01/05/24 09/09/24 History chloride ER] Pyridoxine [Vitamin B-6] 50 mg PO DAILY 01/05/24 09/09/24 History Thiamine [Vitamin B-1] 100 mg PO DAILY 01/05/24 09/09/24 History Topiramate [Topamax] 50 mg PO TID 01/05/24 09/09/24 History Cranberry/Vitamin C 60mg/250mg 1 tab PO DAILY 08/20/24 09/09/24 History HYDROcodone/APAP 7.5-325MG [[place] 1 tab PO Q6H PRN 08/20/24 09/09/24 History 7.5-325] Lactulose 10 gm PO TID PRN 08/20/24 09/09/24 History Multivit-Min/Iron/Folic/Lutein 1 tab PO DAILY 08/20/24 09/09/24 History [Centrum Silver Women Tablet] Phenytoin Sodium Extended 100 mg PO TID 08/20/24 09/09/24 History [Dilantin] Sodium Bicarbonate Tab 650 mg PO BID 08/20/24 09/09/24 History Venlafaxine HCl [Effexor] 75 mg PO TID 08/20/24 09/09/24 History allopurinoL [Zyloprim] 100 mg PO DAILY 08/20/24 09/09/24 History busPIRone HCl [Buspar] 5 mg PO TID 08/20/24 09/09/24 History Baclofen [Lioresal] 20 mg PO TID 09/09/24 09/09/24 History Fluconazole [Diflucan] 150 mg PO DIRECTED 09/09/24 09/09/24 History Gabapentin 1,200 mg PO TID 09/09/24 09/09/24 History Zolpidem Tartrate [Ambien Cr] 12.5 mg PO HS 09/09/24 09/09/24 History Allergies Allergy/AdvReac Type Severity Reaction Status Date / Time levetiracetam [From [facility]] Allergy Rash/Hives Verified 09/09/24 19:45 Penicillins Allergy "STOPPED Verified 09/09/24 19:45 BREATHING" NSAIDS (Non-Steroidal AdvReac "MAY CAUSE Verified 09/09/24 19:45 Anti-Inflamma ULCERS R/T BARIATRIC SX" Physical Exam Vitals: Vital Signs Temp Pulse Pulse Resp BP BP Pulse Ox 09/10/24 07:55 99.2 F 100 16 105/65 99 09/10/24 04:31 99.2 F 116 H 16 104/68 96 09/09/24 21:45 135 H 20 125/83 97 09/09/24 18:46 97.6 F 117 H 20 121/79 100 Intake and Output 09/09/24 09/10/24 09/10/24 22:59 06:59 14:59 Output Total 825 Balance -825 Output: Urine 825 Other: Weight 38.555 kg GENERAL DESCRIPTION: Middle-age female lying in bed, no distress. No tachypnea or accessory muscle of respiration use. HEENT: Shows Pallor , no scleral icterus. Oral mucous membrane is dry. NECK: Trachea central, no thyromegaly. LUNGS: Unlabored breathing. Clear to auscultation anteriorly. No wheeze or crack le. HEART: S1, S2, regular rate and rhythm. No loud murmur ABDOMEN: Soft, no tenderness , guarding or rigidity, no organomegaly EXTREMITIES: No edema of feet. SKIN: Stage IV sacral pressure ulcer with some slough tissue no surrounding redness NEUROLOGICAL: The patient is awake, alert, mood and affect normal. Results CBC & Chem 7: 09/10/24 07:25 09/10/24 07:25 Labs: Abnormal Lab Results - Last 24 Hours (Table) 09/09/24 09/09/24 09/09/24 Range/Units 20:13 20:13 20:13 WBC 16.7 H (3.8-10.6) k/uL MCHC 30.9 L (31.0-37.0) g/dL RDW 15.6 H (11.5-15.5) % Neutrophils # 14.4 H (1.3-7.7) k/uL Sodium 149 H (137-145) mmol/L Chloride 116 H (98-107) mmol/L BUN 25 H (7-17) mg/dL Glucose 123 H (74-99) mg/dL AST 37 H (14-36) U/L ALT 63 H (4-34) U/L Alkaline Phosphatase 152 H (38-126) U/L C-Reactive Protein (<1.0) mg/dL Urine Protein 1+ H (Negative) Urine Nitrite Positive H (Negative) Ur Leukocyte Esterase Large H (Negative) Urine RBC 11 H (0-5) /hpf Urine WBC 36 H (0-5) /hpf Urine Bacteria Occasional H (None) /hpf Urine Mucus Rare H (None) /hpf Urine Yeast (Budding) Few H (None) /hpf 09/10/24 Range/Units 07:25 WBC (3.8-10.6) k/uL MCHC (31.0-37.0) g/dL RDW (11.5-15.5) % Neutrophils # (1.3-7.7) k/uL Sodium (137-145) mmol/L Chloride (98-107) mmol/L BUN (7-17) mg/dL Glucose (74-99) mg/dL AST (14-36) U/L ALT (4-34) U/L Alkaline Phosphatase (38-126) U/L C-Reactive Protein 6.2 H (<1.0) mg/dL Urine Protein (Negative) Urine Nitrite (Negative) Ur Leukocyte Esterase (Negative) Urine RBC (0-5) /hpf Urine WBC (0-5) /hpf Urine Bacteria (None) /hpf Urine Mucus (None) /hpf Urine Yeast (Budding) (None) /hpf Assessment and Plan (1) History of ESBL E. coli infection Current Visit: Yes Status: Acute Code(s): Z86.19 - PERSONAL HISTORY OF OTHER INFECTIOUS AND PARASITIC DISEASES SNOMED Code(s): 222889494 (2) UTI (urinary tract infection) Current Visit: Yes Status: Acute Code(s): N39.0 - URINARY TRACT INFECTION, SITE NOT SPECIFIED SNOMED Code(s): 33511398 (3) Stage III pressure ulcer of sacral region Current Visit: No Status: Acute Code(s): L89.153 - PRESSURE ULCER OF SACRAL REGION, STAGE 3 SNOMED Code(s): 52290312844210 Plan: 1patient presented to hospital with mental status changes did have low-grade fever elevated white count and a positive UA concerning for possible urinary source in this patient who did have a urostomy last admission CT did shows evidence of right-sided hydronephrosis could be the etiology for his recurrent infection 2-urine culture has been requested preferably on the UA submitted from the ER or better culture results 3-local wound care to the sacral wound with central following moist dressing keep the area of the pressure 4-continue with the meropenem while waiting for the culture to finalize We will follow on clinical condition and cultures to further adjust medication if needed Thank you for this consultation we will follow the patient along with you Dictation was produced using [employer] dictation software. please excuse any grammatical, word or spelling errors. Time with Patient: Greater than 30
--- NOTE | 2024-09-11 11:50 | P.PN ---
Subjective This is a pleasant 39 years old female with past medical history of multiple medical problems as below. She was transferred from [facility] for possible UTI that failed treatment. Patient has history of Warnicke's Korsakoff syndrome and seizures/epilepsy, history of suprapubic catheter which is not present now, neurofibromatosis, Raynaud's disease, legally blind and hearing difficulty, clubfoot and GERD. Patient currently looks confused, she does not know where she is at, she does not remember she came from another hospital or facility, she thinks is 2004 and she does not know the name of the president and she does not know why she is here. Other than then she looks, pleasant and relaxed sitting up in bed. Denies any specific complaint to me. Patient also slow to respond. As per records from [facility] she was recently treated for UTI and altered mental status 08/20-08/24. Then she was in the emergency room for altered mental status where she was treated for 2 days with IV fluid and discharged home to return back in 24 hours not eating and drinking. I called the Mr. Thapa over the phone and he told me she has been sick for about a month super tired sleepy, not eating well, not drinking well not doing anything. He states that she has been treated for 2 infection both of them were UTI. She is also had COVID. Prior to that her mentation was more awake and alert and oriented to the surrounding. As per there is no seizure-like activity. Patient is bedbound and not walking since 2019 where she was diagnosed with multiple vitamin deficiency and [facility] including vitamin B1, B6 and B12 deficiency among others. Also patient has been feeling generalized dizziness. He confirms to me she is full code. Patient is tachycardic with heart rate 116, 135 She had a fever of 99.2. Mildly tachypneic with breathing rate around 20. Labs showing leukocytosis which is worsening were 13,000 at [facility] currently 16.6. Sodium is elevated at 149, liver enzymes mildly elevated. INR is unremarkable, troponin is negative. Urine analysis suspicious for infection EKG showing sinus tachycardia at 133. CT of the brain done at [facility] showing no acute process per report. Patient currently on meropenem and normal saline 130 mL/h. Will resume her home medication but we lowered Seroquel from 50 down to 25 and we held her Ambien of 12.5 mg. 09/11 Patient remains confused to time place person. She looks relaxed not in distress, she can follow simple commands, for example w lin I ask her where the UTI area she points to her urinary bladder. She can tell the name of her Mr. Thapa. She denies headache dizziness weakness or numbness. No abdominal pain. Patient looks lethargic. No abdominal pain. Her right upper quadrant urostomy is in place. Leukocytosis improving yesterday down to 12,000, sodium normalized. Liver enzymes mildly elevated. Patient currently kept on meropenem. No IV fluid Neurology evaluated the patient and tapering off her Topamax. Dilantin discontinued. Level was less than 3.0. Active Medications Generic Name Dose Route Start Last Admin Trade Name Freq PRN Reason Stop Dose Admin Hydrocodone Bitart/Acetaminophen 1 each 09/10/24 06:50 09/11/24 03:12 Hydrocodone/Apap 7.5-325mg 1 Each Tab PO 1 each Q6H PRN Administration Pain Allopurinol 100 mg 09/10/24 09:00 09/11/24 08:43 Allopurinol 100 Mg Tab PO 100 mg DAILY JACQUELIN Administration Baclofen 20 mg 09/10/24 09:00 09/11/24 08:43 Baclofen 10 Mg Tab PO 20 mg TID JACQUELIN Administration Buspirone HCl 5 mg 09/10/24 09:00 09/11/24 08:44 Buspirone Hcl 5 Mg Tab PO 5 mg TID JACQUELIN Administration Collagenase 1 applic 09/10/24 11:00 09/11/24 08:45 Collagenase 250 Unit/Gm Ointment 30 Gm Tube TOPICAL 1 applic DAILY JACQUELIN Administration Protocol Fludrocortisone Acetate 0.1 mg 09/10/24 09:00 09/11/24 08:45 Fludrocortisone 0.1 Mg Tab PO 0.1 mg BID JACQUELIN Administration Gabapentin 1,200 mg 09/10/24 09:00 09/11/24 08:43 Gabapentin 400 Mg Cap PO 1,200 mg TID JACQUELIN Administration Sodium Chloride 1,000 mls @ 130 mls/hr 09/09/24 19:15 09/11/24 08:46 Saline 0.9% IV 130 mls/hr .Q7H42M JACQUELIN Administration Meropenem 500 mg/ Sodium 100 mls @ 33.333 mls/hr 09/10/24 00:00 09/11/24 05:15 Chloride IVPB 33.333 mls/hr Q6HR JACQUELIN Administration Lactulose 10 gm 09/10/24 06:50 Lactulose 20 Gm/30 Ml Cup PO TID PRN Constipation Melatonin 6 mg 09/10/24 21:00 09/10/24 20:35 Melatonin 3 Mg Tablet PO 6 mg HS JACQUELIN Administration Morphine Sulfate 4 mg 09/09/24 19:07 09/09/24 22:18 Morphine Sulfate 4 Mg/Ml Syringe IV 4 mg Q4HR PRN Administration Severe Pain (Scale 7 to 10) Naloxone HCl 0.2 mg 09/09/24 19:07 Naloxone 0.4 Mg/Ml 1 Ml Vial IV Q2M PRN Opioid Reversal Pantoprazole Sodium 40 mg 09/10/24 09:00 09/11/24 08:43 Pantoprazole 40 Mg/10 Ml Vial IV 40 mg DAILY JACQUELIN Administration Phenytoin Sodium 100 mg 09/10/24 09:00 09/11/24 08:45 Phenytoin Sodium Extended 100 Mg Cap PO 100 mg TID JACQUELIN Administration Quetiapine Fumarate 25 mg 09/10/24 21:00 09/10/24 20:35 Quetiapine 25 Mg Tab PO 25 mg HS JACQUELIN Administration Topiramate 50 mg 09/10/24 21:00 09/11/24 08:44 Topiramate 25 Mg Tab PO 50 mg BID JACQUELIN Administration Venlafaxine HCl 75 mg 09/10/24 09:00 09/11/24 08:44 Venlafaxine Hcl 75 Mg Tab PO 75 mg TID JACQUELIN Administration Objective - Vital Signs Vital signs: Vital Signs Temp 98.5 F 09/11/24 07:40 Pulse 81 09/11/24 07:40 Resp 16 09/11/24 07:40 BP 126/87 09/11/24 07:40 Pulse Ox 99 09/11/24 07:40 FiO2 Intake & Output 09/10/24 09/11/24 09/11/24 18:59 06:59 18:59 Intake Total 1300 Output Total 900 1525 Balance 400 -1525 Weight 38.555 kg Intake: Intake, IV Titration 950 Amount Sodium Chloride 0.9% 1, 950 000 ml @ 130 mls/hr IV . Q7H42M [facility] Rx#:[id number] Oral 350 Output: Urine 900 1525 Stool 0 - Exam -GENERAL: The patient is alert and calm while decreased orientation x0-1, , not in any acute distress. Thin built HEENT: Pupils are round and equally reacting to light. EOMI. No scleral icterus. No conjunctival pallor. Normocephalic, atraumatic. No pharyngeal erythema. No thyromegaly. CARDIOVASCULAR: S1 and S2 present. No murmurs, rubs, or gallops. PULMONARY: Chest is clear to auscultation, no wheezing , no crackles. ABDOMEN: Soft, mild suprapubic tenderness and left upper quadrant tenderness , nondistended, normoactive bowel sounds. No palpable organomegaly. Urostomy in the right upper quadrant with no surrounding tenderness or leak or cellulitis MUSCULOSKELETAL: No joint swelling or deformity. EXTREMITIES: No cyanosis, clubbing, or pedal edema. NEUROLOGICAL: Gross neurological examination did not reveal any focal deficits. SKIN: No rashes. no petechiae. - Labs CBC & Chem 7: 09/10/24 07:25 09/10/24 07:25 Labs: Abnormal Lab Results - Last 24 Hours (Table) 09/10/24 09/10/24 Range/Units 07:25 11:57 Chloride 112 H (98-107) mmol/L Carbon Dioxide 18 L (22-30) mmol/L BUN 21 H (7-17) mg/dL AST 52 H (14-36) U/L ALT 68 H (4-34) U/L Alkaline Phosphatase 143 H (38-126) U/L C-Reactive Protein 6.2 H (<1.0) mg/dL Urine Appearance Cloudy H (Clear) Urine Protein Trace H (Negative) Urine Nitrite Positive H (Negative) Ur Leukocyte Esterase Large H (Negative) Urine WBC 39 H (0-5) /hpf Urine Bacteria Rare H (None) /hpf Urine Mucus Rare H (None) /hpf Urine Yeast (Budding) Few H (None) /hpf Microbiology - Last 24 Hours (Table) 09/10/24 12:30 Gram Stain - Preliminary Buttock Wound Culture - Preliminary Assessment and Plan Assessment: Altered mental status most likely toxic/metabolic encephalopathy. Neurologist on the case to rule out neurological causes Acute urinary tract infection, recurrent could be related to urostomy in the right upper quadrant Possible sepsis with tachycardia tachypnea and fever and leukocytosis, improved Hypernatremia, resolved Seizure disorder History of hysterectomy, gastric bypass procedure and urostomy Drug allergy to penicillin causing anaphylaxis History of Warnicke's Korsakoff syndrome History of small bowel obstruction and fecal impaction Debility History of peptic ulcer disease Neurofibromatosis Drains disease Legally blind Hearing difficulty History of GERD Plan: IV fluid discontinued Continue with meropenem Co follow-up wound culture and urine culture Neurology service on the case and they recommend to taper off Topamax will continue on Dilantin Consult infectious disease team Labs and medication were reviewed.. Continue same treatment. Continue with symptomatic treatment. Resume home medication. Monitor labs and vitals. DVT and GI prophylaxis. Further recommendations as per clinical course of the patient DVT prophylaxis: Subcutaneous heparin GI Prophylaxis: Pepcid PT/OT: Pending Prognosis is guarded
--- NOTE | 2024-09-11 12:53 | P.PN ---
Subjective Progress Note Date: 09/11/24 I am following-up with patient and no new neurological issues. She is stable. Objective - Vital Signs Vital signs: Vital Signs Temp 98.5 F 09/11/24 07:40 Pulse 81 09/11/24 07:40 Resp 16 09/11/24 07:40 BP 126/87 09/11/24 07:40 Pulse Ox 99 09/11/24 07:40 FiO2 Intake & Output 09/10/24 09/11/24 09/11/24 18:59 06:59 18:59 Intake Total 1300 Output Total 900 1525 Balance 400 -1525 Weight 38.555 kg Intake: Intake, IV Titration 950 Amount Sodium Chloride 0.9% 1, 950 000 ml @ 130 mls/hr IV . Q7H42M [facility] Rx#:[id number] Oral 350 Output: Urine 900 1525 Stool 0 - Exam General: Lying in bed and is not in acute distress. Neuro: Patient is awake alert oriented to self time. She stated she is in [facility]. Patient is mildly slow following commands. But she is following commands appropriately. She was able to name objects correctly such as pen and glasses. No aphasia from limited language Pupils are round about 4 mm and reactive to light. Visual massey are full to confrontation. Extraocular movement is intact no nystagmus. No facial weakness. No dysarthria. Motor: The strength in the upper extremity is 5 out of 5, in the lowers is about 3-4 out of 5. Reflexes is about 0 brachioradialis is about a 1 bilaterally. Some of the workup during this hospital visit consisted of: Patient is afebrile. White blood cell initial presentation was 16.7 thousand and repeat is 12.5K. Sodium is 149 AST is 37 ALT 63 Ammonia is less than 9 Serum glucose is 123 Calcium is 9.8, phosphorus is 3.48 magnesium is 2.2. Plasma lactic acid vein is 1.9 Urinalysis is nitrite is positive, leukocyte esterase is large, urine white blood cells 36 Dilantin level is less than 3. - Labs CBC & Chem 7: 09/10/24 07:25 09/10/24 07:25 Labs: Abnormal Lab Results - Last 24 Hours (Table) 09/10/24 09/10/24 Range/Units 07:25 11:57 Chloride 112 H (98-107) mmol/L Carbon Dioxide 18 L (22-30) mmol/L BUN 21 H (7-17) mg/dL AST 52 H (14-36) U/L ALT 68 H (4-34) U/L Alkaline Phosphatase 143 H (38-126) U/L C-Reactive Protein 6.2 H (<1.0) mg/dL Urine Appearance Cloudy H (Clear) Urine Protein Trace H (Negative) Urine Nitrite Positive H (Negative) Ur Leukocyte Esterase Large H (Negative) Urine WBC 39 H (0-5) /hpf Urine Bacteria Rare H (None) /hpf Urine Mucus Rare H (None) /hpf Urine Yeast (Budding) Few H (None) /hpf Microbiology - Last 24 Hours (Table) 09/10/24 12:30 Gram Stain - Preliminary Buttock Wound Culture - Preliminary 09/09/24 20:13 Urine Culture - Final Urine,Ureter Yumiko tropicalis Assessment and Plan Assessment: This is a 39-year-old woman with history of epilepsy, Warnicke encephalopathy, recurrent urinary tract infection who was transferred from [facility] for escalation of care of her urinary tract infection since she failed her outpatient treatment and needed IV antibiotic. Patient was in our facility a few weeks ago and had extensive neurologic workup and had CSF study which was unremarkable for any underlying infection as well as an EEG which was normal. Altered mental status seems due to septic encephalopathy from her urosepsis--currently she was responding to questions correctly and following simple commands. Acute urinary tract infection History of epilepsy on Dilantin History of Wernicke encephalopathy History of Mnire's disease History of Raynaud's disease History of recent COVID-19 infection History of chronic indwelling suprapubic catheter Wheelchair-bound History of recurrent urinary tract infection History of GERD History of anxiety History of depression Plan: Patient phenytoin 100 mg, 3 times daily is resumed. It seems per our last note her outpatient neurologist Dr. Jo has stopped Topamax and place her on Dilantin. As correctly stated by Dr. Lindo Topamax can decrease appetite and make weight loss further worse. Therefore I went down on Topamax from 50 mg TID that was resumed by the primary team to bid on 09/10/24. Today will go down to 50mg daily and by tomorrow stop. If has further seizure, recommend adding Vimpat 50mg bid. Seizure precautions seizure pads Recommend the patient to follow-up with her outpatient neurologist within 3 weeks Will defer the rest of the medical management to the primary team. Otherwise no additional neurological work-up. Time with Patient: Less than 30
--- NOTE | 2024-09-11 13:58 | P.CON ---
Consult Note - . Consult date: 09/10/24 Assessment/Plan:: Wound care consultation: Reason for consultation: Sacral ulcer and possible sacral injury to right hip This is a 39-year-old female with numerous medical conditions as outlined in her history and physical.We have been asked to address a possible pressure injury on the right hip and a pressure ulcer over the sacrum. There is an area over the right greater trochanter that is reddened with minimal punctate redness. There is a round full tissue loss pressure ulceration with some undermining over the sacrum. Dimensions are about 4 cm x 4 cm and about 0.5 cm in depth with about 0.7 cm of undermining. Impression: Stage I pressure injury right greater trochanter and stage III pressure ulcer over the sacrum. Recommendation: For the right greater trochanter area I would simply keep this area offloaded as much as possible. Consider a bordered foam to simply protect it from friction and from pressure. For the sacral ulcer, I have recommended that for the first time it be irrigated with half-strength peroxide to clean up the worst of the purulence. Then place daily sings of Santyl. The wound is adequately cleaned up silver alginate and bordered foam as a dressing. Currently it is "quite purulent and would not be suitable for waiting a day or 2 between dressing changes. Also, it does not appear that the patient is in any way offloading this area. Would use Roho cushion, air mattress, and the patient requires significant diligence to maintain offloading.
--- NOTE | 2024-09-11 20:27 | P.PN ---
Subjective Progress Note Date: 09/11/24 Principal diagnosis: Reason for follow-up is UTI and sacral pressure ulcer Patient is a 39-year-old female with multiple comorbidities including fibromyalgia reflux pneumonia seizure disorder patient also have a urostomy and recent multiple admission to the hospital for a UTI patient has been transferred to [facility] from [facility] where patient apparently has been diagnosed with a UTI failing outpatient treatment. On today's evaluation that is 09/11/2024,the patient remains to be afebrile, patient is on room air not requiring supplemental oxygen and breathing comfortably no chest pain no cough no abdominal pain no diarrhea. Patient white count down to 12.53 as of yesterday no CBC was done today urine culture is currently currently growing Yumiko tropicalis Objective - Vital Signs Vital signs: Vital Signs Temp 97.6 F 09/11/24 19:50 Pulse 96 09/11/24 19:50 Resp 18 09/11/24 19:50 BP 115/89 09/11/24 19:50 Pulse Ox 96 09/11/24 19:50 FiO2 Intake & Output 09/11/24 09/11/24 09/12/24 06:59 18:59 06:59 Intake Total 1700 Output Total 1525 1600 Balance -1525 100 Weight 38.555 kg Intake: Intake, IV Titration 1100 Amount Meropenem 500 mg In 100 Sodium Chloride 0.9% 100 ml @ 33.333 mls/hr IVPB Q6HR [facility] Rx#:[id number] Sodium Chloride 0.9% 1, 1000 000 ml @ 130 mls/hr IV . Q7H42M [facility] Rx#:[id number] Oral 600 Output: Urine 1525 1600 Stool 0 - Exam GENERAL DESCRIPTION: Middle-age female lying in bed in no distress RESPIRATORY SYSTEM: Unlabored breathing , decreased breath sounds at bases HEART: S1 S2 regular rate and rhythm , ABDOMEN: Soft , no tenderness EXTREMITIES: No edema feet - Labs CBC & Chem 7: 09/10/24 07:25 09/10/24 07:25 Labs: Abnormal Lab Results - Last 24 Hours (Table) 09/10/24 Range/Units 07:25 Free Phenytoin <0.8 L (0.8-2.0) ug/mL Microbiology - Last 24 Hours (Table) 09/10/24 07:25 Blood Culture - Preliminary Blood 09/10/24 12:30 Gram Stain - Preliminary Buttock Wound Culture - Preliminary 09/09/24 20:13 Urine Culture - Final Urine,Ureter Yumiko tropicalis Assessment and Plan (1) History of ESBL E. coli infection Current Visit: Yes Status: Acute Code(s): Z86.19 - PERSONAL HISTORY OF OTHER INFECTIOUS AND PARASITIC DISEASES SNOMED Code(s): 194278037 (2) UTI (urinary tract infection) Current Visit: Yes Status: Acute Code(s): N39.0 - URINARY TRACT INFECTION, SITE NOT SPECIFIED SNOMED Code(s): 11085591 (3) Stage III pressure ulcer of sacral region Current Visit: No Status: Acute Code(s): L89.153 - PRESSURE ULCER OF SACRAL REGION, STAGE 3 SNOMED Code(s): 79183183496662 Plan: 1patient presented to hospital with mental status changes did have low-grade fever elevated white count and a positive UA concerning for possible urinary source in this patient who did have a urostomy last admission CT did shows evidence of right-sided hydronephrosis could be the etiology for his recurrent infection 2-urine culture has been requested with initial culture currently growing Yumiko repeat is currently pending 3-local wound care to the sacral wound with central following moist dressing keep the area of the pressure 4-patient to continue with the meropenem while waiting for the culture and Diflucan and see clinical response Dictation was produced using [email or web address] dictation software. please excuse any grammatical, word or spelling errors. Time with Patient: Less than 30
[2024-09-11] MEDS: FLUCONAZOLE 100 MG TAB PO SCH (22:18)
[2024-09-12 08:17] LABS: Basophils # (A) 0.03 X 10*3/uL (0.00-0.10); Basophils % (A) 0.7 %; Eosinophils % (A) 2.4 %; HCT 33.7 % (37.2-46.3); HGB 10.5 g/dL (12.0-15.0); MCH 29.9 pg (27.0-32.0); MCHC 31.2 g/dL (32.0-37.0); Mean Platelet Volume 10.6 FL (9.5-12.2); Monocytes # (A) 0.27 X 10*3/uL (0.20-1.00); Monocytes % (A) 6.5 %; NRBC Per 100 WBC 0 X 10*3/uL (0.00-0.01); Neutrophils # (A) 2.52 X 10*3/uL (1.80-7.70); Neutrophils % (A) 60.9 %; Platelet Count 235 X 10*3/uL (140-440); RBC 3.51 X 10*6/uL (4.10-5.20); RDW 14.2 % (11.5-14.5); WBC 4.14 X 10*3/uL (4.50-10.00)
[2024-09-12 08:43] LABS: BUN/Creat Ratio 16.86 Ratio (12.00-20.00); Blood Urea Nitrogen 11.8 mg/dL (9.0-27.0); Calcium 8.8 mg/dL (8.7-10.3); Carbon Dioxide 16.4 mmol/L (21.6-31.8); Chloride 116 mmol/L (96-109); Glucose 66 mg/dL (70-110); Potassium 3.7 mmol/L (3.5-5.5); Sodium 146 mmol/L (135-145)
[2024-09-12] MEDS: TOPIRAMATE 25 MG TAB PO SCH (09:05)
--- NOTE | 2024-09-12 10:45 | P.PN ---
Subjective This is a pleasant 39 years old female with past medical history of multiple medical problems as below. She was transferred from [facility] for possible UTI that failed treatment. Patient has history of Warnicke's Korsakoff syndrome and seizures/epilepsy, history of suprapubic catheter which is not present now, neurofibromatosis, Raynaud's disease, legally blind and hearing difficulty, clubfoot and GERD. Patient currently looks confused, she does not know where she is at, she does not remember she came from another hospital or facility, she thinks is 2004 and she does not know the name of the president and she does not know why she is here. Other than then she looks, pleasant and relaxed sitting up in bed. Denies any specific complaint to me. Patient also slow to respond. As per records from [facility] she was recently treated for UTI and altered mental status 08/20-08/24. Then she was in the emergency room for altered mental status where she was treated for 2 days with IV fluid and discharged home to return back in 24 hours not eating and drinking. I called the Mr. Thapa over the phone and he told me she has been sick for about a month super tired sleepy, not eating well, not drinking well not doing anything. He states that she has been treated for 2 infection both of them were UTI. She is also had COVID. Prior to that her mentation was more awake and alert and oriented to the surrounding. As per there is no seizure-like activity. Patient is bedbound and not walking since 2019 where she was diagnosed with multiple vitamin deficiency and [facility] including vitamin B1, B6 and B12 deficiency among others. Also patient has been feeling generalized dizziness. He confirms to me she is full code. Patient is tachycardic with heart rate 116, 135 She had a fever of 99.2. Mildly tachypneic with breathing rate around 20. Labs showing leukocytosis which is worsening were 13,000 at [facility] currently 16.6. Sodium is elevated at 149, liver enzymes mildly elevated. INR is unremarkable, troponin is negative. Urine analysis suspicious for infection EKG showing sinus tachycardia at 133. CT of the brain done at [facility] showing no acute process per report. Patient currently on meropenem and normal saline 130 mL/h. Will resume her home medication but we lowered Seroquel from 50 down to 25 and we held her Ambien of 12.5 mg. 09/11 Patient remains confused to time place person. She looks relaxed not in distress, she can follow simple commands, for example w lin I ask her where the UTI area she points to her urinary bladder. She can tell the name of her Mr. Thapa. She denies headache dizziness weakness or numbness. No abdominal pain. Patient looks lethargic. No abdominal pain. Her right upper quadrant urostomy is in place. Leukocytosis improving yesterday down to 12,000, sodium normalized. Liver enzymes mildly elevated. Patient currently kept on meropenem. No IV fluid Neurology evaluated the patient and tapering off her Topamax. Dilantin discontinued. Level was less than 3.0. 09/12 Patient today is much better, she knows she is in [place] although she did not know in the hospital. She knew the year 2024 and August. She she know the name of the president. She knows why she has been admitted to the hospital stating she has infection but she thinks it is in the vagina. We explained to the patient it is her UTI. Patient however denies any vaginal symptom no discharge or itching or pain as she explains. No other new complaint. Her leukocytosis significantly improved from 12 down to 4.1, hemoglobin slightly low from 12 down to 10.5 with some elements of hemodilution. Her normal saline was discontinued She remains on meropenem, fluconazole was added because of urine culture showing Yumiko tropicalis. Neurology also following closely with the plan to stop Topamax. Review of systems CONSTITUTIONAL: No fever, no malaise, no fatigue. HEENT: No recent visual problems or hearing problems. Denied any sore throat. CARDIOVASCULAR: No orthopnea, PND, no palpitations, no syncope. HEMATOLOGICAL: Denies any bleeding or petechiae. MUSCULOSKELETAL/RHEUMATOLOGICAL: Denies any joint pain, swelling, or any muscle pain. ENDOCRINE: Denies any polyuria or polydipsia. Active Medications Generic Name Dose Route Start Last Admin Trade Name Freq PRN Reason Stop Dose Admin Hydrocodone Bitart/Acetaminophen 1 each 09/10/24 06:50 09/11/24 03:12 Hydrocodone/Apap 7.5-325mg 1 Each Tab PO 1 each Q6H PRN Administration Pain Allopurinol 100 mg 09/10/24 09:00 09/12/24 09:05 Allopurinol 100 Mg Tab PO 100 mg DAILY [facility] Administration Baclofen 20 mg 09/10/24 09:00 09/12/24 09:05 Baclofen 10 Mg Tab PO 20 mg TID JACQUELIN Administration Buspirone HCl 5 mg 09/10/24 09:00 09/12/24 09:05 Buspirone Hcl 5 Mg Tab PO 5 mg TID JACQUELIN Administration Collagenase 1 applic 09/10/24 11:00 09/12/24 09:05 Collagenase 250 Unit/Gm Ointment 30 Gm Tube TOPICAL 1 applic DAILY [facility]ACQUELIN Administration Protocol Fluconazole 100 mg 09/11/24 20:30 09/12/24 09:05 Fluconazole 100 Mg Tab PO 100 mg DAILY [facility]IN Administration Protocol Fludrocortisone Acetate 0.1 mg 09/10/24 09:00 09/12/24 09:05 Fludrocortisone 0.1 Mg Tab PO 0.1 mg BID [facility]ACQU[facility]IN Administration Gabapentin 1,200 mg 09/10/24 09:00 09/12/24 09:04 Gabapentin 400 Mg Cap PO 1,200 mg TID JACQUELIN Administration Sodium Chloride 1,000 mls @ 130 mls/hr 09/09/24 19:15 09/12/24 05:37 Saline 0.9% IV Not Given .Q7H42M [facility] Meropenem 500 mg/ Sodium 100 mls @ 33.333 mls/hr 09/10/24 00:00 09/12/24 06:03 Chloride IVPB 33.333 mls/hr Q6HR [facility] Administration Lactulose 10 gm 09/10/24 06:50 Lactulose 20 Gm/30 Ml Cup PO TID PRN Constipation Melatonin 6 mg 09/10/24 21:00 09/11/24 20:46 Melatonin 3 Mg Tablet PO 6 mg HS JACQU[facility]IN Administration Morphine Sulfate 4 mg 09/09/24 19:07 09/09/24 22:18 Morphine Sulfate 4 Mg/Ml Syringe IV 4 mg Q4HR PRN Administration Severe Pain (Scale 7 to 10) Naloxone HCl 0.2 mg 09/09/24 19:07 Naloxone 0.4 Mg/Ml 1 Ml Vial IV Q2M PRN Opioid Reversal Pantoprazole Sodium 40 mg 09/10/24 09:00 09/12/24 09:04 Pantoprazole 40 Mg/10 Ml Vial IV 40 mg DAILY [facility] Administration Phenytoin Sodium 100 mg 09/10/24 09:00 09/12/24 09:05 Phenytoin Sodium Extended 100 Mg Cap PO 100 mg TID [facility]AC[facility]IN Administration Quetiapine Fumarate 25 mg 09/10/24 21:00 09/11/24 20:46 Quetiapine 25 Mg Tab PO 25 mg HS [facility] Administration Topiramate 50 mg 09/12/24 09:00 09/12/24 09:05 Topiramate 25 Mg Tab PO 50 mg DAILY [facility] Administration Venlafaxine HCl 75 mg 09/10/24 09:00 09/12/24 09:05 Venlafaxine Hcl 75 Mg Tab PO 75 mg TID [facility] Administration Objective - Vital Signs Vital signs: Vital Signs Temp 97.5 F L 09/12/24 07:08 Pulse 58 L 09/12/24 07:45 Resp 16 09/12/24 07:45 BP 126/86 09/12/24 07:08 Pulse Ox 100 09/12/24 07:08 FiO2 Intake & Output 09/11/24 09/12/24 09/12/24 18:59 06:59 18:59 Intake Total 1700 1080 Output Total 4900 557 4889 Balance 100 180 -1000 Weight 38.555 kg Intake: Intake, IV Titration 1100 Amount Meropenem 500 mg In 100 Sodium Chloride 0.9% 100 ml @ 33.333 mls/hr IVPB Q6HR [facility] Rx#:[id number] Sodium Chloride 0.9% 1, 1000 000 ml @ 130 mls/hr IV . Q7H42M [facility] Rx#:[id number] Oral 600 1080 Output: Urine 3613 203 4469 Stool 0 0 - Exam -GENERAL: The patient is alert and calm while decreased orientation x3 partially to place, , not in any acute distress. Thin built HEENT: Pupils are round and equally reacting to light. EOMI. No scleral icterus. No conjunctival pallor. Normocephalic, atraumatic. No pharyngeal erythema. No thyromegaly. CARDIOVASCULAR: S1 and S2 present. No murmurs, rubs, or gallops. PULMONARY: Chest is clear to auscultation, no wheezing , no crackles. -ABDOMEN: Soft, mild suprapubic tenderness and left upper quadrant tenderness , nondistended, normoactive bowel sounds. No palpable organomegaly. Urostomy in the right upper quadrant with no surrounding tenderness or leak or cellulitis MUSCULOSKELETAL: No joint swelling or deformity. EXTREMITIES: No cyanosis, clubbing, or pedal edema. NEUROLOGICAL: Gross neurological examination did not reveal any focal deficits. SKIN: No rashes. no petechiae. - Labs CBC & Chem 7: 09/12/24 04:16 09/12/24 04:16 Labs: Abnormal Lab Results - Last 24 Hours (Table) 09/10/24 09/12/24 09/12/24 Range/Units 07:25 04:16 04:16 WBC 4.14 L (4.50-10.00) X 10*3/uL RBC 3.51 L (4.10-5.20) X 10*6/uL Hgb 10.5 L (12.0-15.0) g/dL Hct 33.7 L (37.2-46.3) % MCHC 31.2 L (32.0-37.0) g/dL Sodium 146 H (135-145) mmol/L Chloride 116 H (96-109) mmol/L Carbon Dioxide 16.4 L (21.6-31.8) mmol/L Anion Gap 13.60 H (4.00-12.00) mmol/L Glucose 66 L (70-110) mg/dL Free Phenytoin <0.8 L (0.8-2.0) ug/mL Microbiology - Last 24 Hours (Table) 09/10/24 12:30 Gram Stain - Final Buttock Wound Culture - Final Methicillin resist S. aureus 09/10/24 07:25 Blood Culture - Preliminary Blood 09/09/24 20:13 Urine Culture - Final Urine,Ureter Yumiko tropicalis Assessment and Plan Assessment: Altered mental status most likely toxic/metabolic encephalopathy. Neurologist on the case to rule out neurological causes Acute urinary tract infection, recurrent could be related to urostomy in the right upper quadrant Possible sepsis with tachycardia tachypnea and fever and leukocytosis, improved Hypernatremia, resolved Seizure disorder Stage II pressure ulcer of the right buttock area History of hysterectomy, gastric bypass procedure and urostomy Drug allergy to penicillin causing anaphylaxis History of Warnicke's Korsakoff syndrome History of small bowel obstruction and fecal impaction Debility History of peptic ulcer disease Neurofibromatosis Drains disease Legally blind Hearing difficulty History of GERD Plan: IV fluid discontinued Continue with meropenem and Diflucan Continue with wound care Neurology service on the case and they recommend to taper off Topamax will continue on Dilantin Consult infectious disease team Labs and medication were reviewed.. Continue same treatment. Continue with symptomatic treatment. Resume home medication. Monitor labs and vitals. DVT and GI prophylaxis. Further recommendations as per clinical course of the patient DVT prophylaxis: Subcutaneous heparin GI Prophylaxis: Pepcid PT/OT: Pending Prognosis is guarded
[2024-09-12] MEDS ORDERED: VANCOMYCIN IV PER PHARMACY 1 EACH MISC MISCELLANE PRN (13:18)
--- NOTE | 2024-09-12 14:23 | P.PN ---
Subjective Progress Note Date: 09/12/24 I am following-up with patient and she is about the same. Objective - Vital Signs Vital signs: Vital Signs Temp 97.5 F L 09/12/24 07:08 Pulse 58 L 09/12/24 07:45 Resp 16 09/12/24 07:45 BP 126/86 09/12/24 07:08 Pulse Ox 100 09/12/24 07:08 FiO2 Intake & Output 09/11/24 09/12/24 09/12/24 18:59 06:59 18:59 Intake Total 1700 1080 Output Total 4725 813 5144 Balance 100 180 -1000 Weight 38.555 kg Intake: Intake, IV Titration 1100 Amount Meropenem 500 mg In 100 Sodium Chloride 0.9% 100 ml @ 33.333 mls/hr IVPB Q6HR [facility] Rx#:[id number] Sodium Chloride 0.9% 1, 1000 000 ml @ 130 mls/hr IV . Q7H42M [facility] Rx#:[id number] Oral 600 1080 Output: Urine 1115 719 7369 Stool 0 0 - Exam General: Lying in bed and is not in acute distress. Neuro: Limited. Is sleeping. Some of the workup during this hospital visit consisted of: Patient is afebrile. White blood cell initial presentation was 16.7 thousand and repeat is 12.5K. Sodium is 149 AST is 37 ALT 63 Ammonia is less than 9 Serum glucose is 123 Calcium is 9.8, phosphorus is 3.48 magnesium is 2.2. Plasma lactic acid vein is 1.9 Urinalysis is nitrite is positive, leukocyte esterase is large, urine white blood cells 36 Dilantin level is less than 3. - Labs CBC & Chem 7: 09/12/24 04:16 09/12/24 04:16 Labs: Abnormal Lab Results - Last 24 Hours (Table) 09/12/24 09/12/24 Range/Units 04:16 04:16 WBC 4.14 L (4.50-10.00) X 10*3/uL RBC 3.51 L (4.10-5.20) X 10*6/uL Hgb 10.5 L (12.0-15.0) g/dL Hct 33.7 L (37.2-46.3) % MCHC 31.2 L (32.0-37.0) g/dL Sodium 146 H (135-145) mmol/L Chloride 116 H (96-109) mmol/L Carbon Dioxide 16.4 L (21.6-31.8) mmol/L Anion Gap 13.60 H (4.00-12.00) mmol/L Glucose 66 L (70-110) mg/dL Microbiology - Last 24 Hours (Table) 09/10/24 12:30 Anaerobic Culture - Preliminary Buttock Yumiko albicans 09/10/24 07:25 Blood Culture - Preliminary Blood 09/10/24 12:30 Gram Stain - Final Buttock Wound Culture - Final Methicillin resist S. aureus 09/09/24 20:13 Urine Culture - Final Urine,Ureter Yumiko tropicalis Assessment and Plan Assessment: This is a 39-year-old woman with history of epilepsy, Warnicke encephalopathy, recurrent urinary tract infection who was transferred from [facility] for escalation of care of her urinary tract infection since she failed her outpatient treatment and needed IV antibiotic. Patient was in our facility a few weeks ago and had extensive neurologic workup and had CSF study which was unremarkable for any underlying infection as well as an EEG which was normal. Altered mental status seems due to septic encephalopathy from her urosepsis--currently she was responding to questions correctly and following simple commands. Acute urinary tract infection History of epilepsy on Dilantin History of Wernicke encephalopathy History of Mnire's disease History of Raynaud's disease History of recent COVID-19 infection History of chronic indwelling suprapubic catheter Wheelchair-bound History of recurrent urinary tract infection History of GERD History of anxiety History of depression Plan: Patient phenytoin 100 mg, 3 times daily is resumed. It seems per our last note her outpatient neurologist Dr. Jo has stopped Topamax and place her on Dilantin. As stated by Dr. Lindo on prior notes, Topamax can decrease appetite and make weight loss further worse. Therefore I went down on Topamax from 50 mg TID that was resumed by the primary team to bid on 09/10/24. Today will stop. If has further seizure, recommend adding Vimpat 50mg bid. I will get repeat Dilantin level. Seizure precautions seizure pads Recommend the patient to follow-up with her outpatient neurologist within 3 weeks Will defer the rest of the medical management to the primary team. Will follow-up with patient sporadically. Dr. Lindo will resume neurology service tomorrow A.M. Time with Patient: Less than 30
--- NOTE | 2024-09-12 15:07 | P.PN ---
Subjective Progress Note Date: 09/12/24 Principal diagnosis: Reason for follow-up is UTI and sacral pressure ulcer Patient is a 39-year-old female with multiple comorbidities including fibromyalgia reflux pneumonia seizure disorder patient also have a urostomy and recent multiple admission to the hospital for a UTI patient has been transferred to [facility] from [facility] where patient apparently has been diagnosed with a UTI failing outpatient treatment. On today's evaluation that is 09/12/2024, the patient continues to be afebrile, the patient is on room air and breathing comfortably, the Pt does not seem to be in any distress and is sleepy no significant changes by the sitter at the bedside. Patient white count is down to 4.14 creatinine 0.7 sacral wound culture now growing MRSA Objective - Vital Signs Vital signs: Vital Signs Temp 97.5 F L 09/12/24 07:08 Pulse 58 L 09/12/24 07:45 Resp 16 09/12/24 07:45 BP 126/86 09/12/24 07:08 Pulse Ox 100 09/12/24 07:08 FiO2 Intake & Output 09/11/24 09/12/24 09/12/24 18:59 06:59 18:59 Intake Total 1700 1080 Output Total 1026 379 6315 Balance 100 180 -1000 Weight 38.555 kg Intake: Intake, IV Titration 1100 Amount Meropenem 500 mg In 100 Sodium Chloride 0.9% 100 ml @ 33.333 mls/hr IVPB Q6HR [facility] Rx#:[id number] Sodium Chloride 0.9% 1, 1000 000 ml @ 130 mls/hr IV . Q7H42M [facility] Rx#:[id number] Oral 600 1080 Output: Urine 1143 373 8421 Stool 0 0 - Exam GENERAL DESCRIPTION: Middle-age female lying in bed in no distress RESPIRATORY SYSTEM: Unlabored breathing , decreased breath sounds at bases HEART: S1 S2 regular rate and rhythm , ABDOMEN: Soft , no tenderness EXTREMITIES: No edema feet - Labs CBC & Chem 7: 09/12/24 04:16 09/12/24 04:16 Labs: Abnormal Lab Results - Last 24 Hours (Table) 09/10/24 09/12/24 09/12/24 Range/Units 07:25 04:16 04:16 WBC 4.14 L (4.50-10.00) X 10*3/uL RBC 3.51 L (4.10-5.20) X 10*6/uL Hgb 10.5 L (12.0-15.0) g/dL Hct 33.7 L (37.2-46.3) % MCHC 31.2 L (32.0-37.0) g/dL Sodium 146 H (135-145) mmol/L Chloride 116 H (96-109) mmol/L Carbon Dioxide 16.4 L (21.6-31.8) mmol/L Anion Gap 13.60 H (4.00-12.00) mmol/L Glucose 66 L (70-110) mg/dL Free Phenytoin <0.8 L (0.8-2.0) ug/mL Microbiology - Last 24 Hours (Table) 09/10/24 07:25 Blood Culture - Preliminary Blood 09/10/24 12:30 Gram Stain - Final Buttock Wound Culture - Final Methicillin resist S. aureus 09/09/24 20:13 Urine Culture - Final Urine,Ureter Yumiko tropicalis Assessment and Plan (1) History of ESBL E. coli infection Current Visit: Yes Status: Acute Code(s): Z86.19 - PERSONAL HISTORY OF OTHER INFECTIOUS AND PARASITIC DISEASES SNOMED Code(s): 489037030 (2) UTI (urinary tract infection) Current Visit: Yes Status: Acute Code(s): N39.0 - URINARY TRACT INFECTION, SITE NOT SPECIFIED SNOMED Code(s): 96105257 (3) Stage III pressure ulcer of sacral region Current Visit: No Status: Acute Code(s): L89.153 - PRESSURE ULCER OF SACRAL REGION, STAGE 3 SNOMED Code(s): 93201537879464 Plan: 1patient presented to hospital with mental status changes did have low-grade fever elevated white count and a positive UA concerning for possible urinary source in this patient who did have a urostomy last admission CT did shows evidence of right-sided hydronephrosis could be the etiology for his recurrent infection 2-urine culture has been requested with initial culture currently growing Can dida repeat is currently pending 3-local wound care to the sacral wound with santyl followed by moist dressing keep the area of the pressure 4-patient continues on Diflucan will discontinue meropenem with a new culture showing MRSA will start the patient vancomycin pharmacy to dose Dictation was produced using dragon dictation software. please excuse any grammatical, word or spelling errors. Time with Patient: Less than 30
[2024-09-12] MEDS: VANCOMYCIN 500 MG in SODIUM CHLORIDE 0.9% 250 ML IVPB SCH (17:05)
[2024-09-13 07:31] LABS: African American GFR (CKD) >90 (>60 ml/min/1.73 sqM); Non-African American GFR(CKD) >90 (>60 ml/min/1.73 sqM)
[2024-09-13] MEDS: VANCOMYCIN 500 MG in SODIUM CHLORIDE 0.9% 250 ML IVPB SCH (08:58)
--- NOTE | 2024-09-13 10:58 | P.PN ---
Subjective This is a pleasant 39 years old female with past medical history of multiple medical problems as below. She was transferred from [facility] for possible UTI that failed treatment. Patient has history of Warnicke's Korsakoff syndrome and seizures/epilepsy, history of suprapubic catheter which is not present now, neurofibromatosis, Raynaud's disease, legally blind and hearing difficulty, clubfoot and GERD. Patient currently looks confused, she does not know where she is at, she does not remember she came from another hospital or facility, she thinks is 2004 and she does not know the name of the president and she does not know why she is here. Other than then she looks, pleasant and relaxed sitting up in bed. Denies any specific complaint to me. Patient also slow to respond. As per records from [facility] she was recently treated for UTI and altered mental status 08/20-08/24. Then she was in the emergency room for altered mental status where she was treated for 2 days with IV fluid and discharged home to return back in 24 hours not eating and drinking. I called the Mr. Thapa over the phone and he told me she has been sick for about a month super tired sleepy, not eating well, not drinking well not doing anything. He states that she has been treated for 2 infection both of them were UTI. She is also had COVID. Prior to that her mentation was more awake and alert and oriented to the surrounding. As per there is no seizure-like activity. Patient is bedbound and not walking since 2019 where she was diagnosed with multiple vitamin deficiency and [facility] including vitamin B1, B6 and B12 deficiency among others. Also patient has been feeling generalized dizziness. He confirms to me she is full code. Patient is tachycardic with heart rate 116, 135 She had a fever of 99.2. Mildly tachypneic with breathing rate around 20. Labs showing leukocytosis which is worsening were 13,000 at [facility] currently 16.6. Sodium is elevated at 149, liver enzymes mildly elevated. INR is unremarkable, troponin is negative. Urine analysis suspicious for infection EKG showing sinus tachycardia at 133. CT of the brain done at [facility] showing no acute process per report. Patient currently on meropenem and normal saline 130 mL/h. Will resume her home medication but we lowered Seroquel from 50 down to 25 and we held her Ambien of 12.5 mg. 09/11 Patient remains confused to time place person. She looks relaxed not in distress, she can follow simple commands, for example w lin I ask her where the UTI area she points to her urinary bladder. She can tell the name of her Mr. Thapa. She denies headache dizziness weakness or numbness. No abdominal pain. Patient looks lethargic. No abdominal pain. Her right upper quadrant urostomy is in place. Leukocytosis improving yesterday down to 12,000, sodium normalized. Liver enzymes mildly elevated. Patient currently kept on meropenem. No IV fluid Neurology evaluated the patient and tapering off her Topamax. Dilantin discontinued. Level was less than 3.0. 09/12 Patient today is much better, she knows she is in [place] although she did not know in the hospital. She knew the year 2024 and August. She she know the name of the president. She knows why she has been admitted to the hospital stating she has infection but she thinks it is in the vagina. We explained to the patient it is her UTI. Patient however denies any vaginal symptom no discharge or itching or pain as she explains. No other new complaint. Her leukocytosis significantly improved from 12 down to 4.1, hemoglobin slightly low from 12 down to 10.5 with some elements of hemodilution. Her normal saline was discontinued She remains on meropenem, fluconazole was added because of urine culture showing Yumiko tropicalis. Neurology also following closely with the plan to stop Topamax. 09/13 Patient mentation improving slowly and gradually Neurologist evaluated the patient and tapering off her Topamax while keeping Dilantin and they recommended Vimpat only if she hasmore seizure, however she did not have any seizure today She has a history of ESBL UTI and she finished course of meropenem. Cultures growing Yumiko and currently fluconazole She has evidence of stage III sacral pressure ulcer Also looks infected with culture growing MRSA and patient was placed on IV vancomycin by ID team Review of systems CONSTITUTIONAL: No fever, no malaise, no fatigue. HEENT: No recent visual problems or hearing problems. Denied any sore throat. CARDIOVASCULAR: No orthopnea, PND, no palpitations, no syncope. HEMATOLOGICAL: Denies any bleeding or petechiae. MUSCULOSKELETAL/RHEUMATOLOGICAL: Denies any joint pain, swelling, or any muscle pain. ENDOCRINE: Denies any polyuria or polydipsia. Active Medications Generic Name Dose Route Start Last Admin Trade Name Freq PRN Reason Stop Dose Admin Hydrocodone Bitart/Acetaminophen 1 each 09/10/24 06:50 09/13/24 05:47 Hydrocodone/Apap 7.5-325mg 1 Each Tab PO 1 each Q6H PRN Administration Pain Allopurinol 100 mg 09/10/24 09:00 09/13/24 08:48 Allopurinol 100 Mg Tab PO 100 mg DAILY JACQUELIN Administration Baclofen 20 mg 09/10/24 09:00 09/13/24 08:48 Baclofen 10 Mg Tab PO 20 mg TID JACQUELIN Administration Buspirone HCl 5 mg 09/10/24 09:00 09/13/24 08:48 Buspirone Hcl 5 Mg Tab PO 5 mg TID JACQUELIN Administration Collagenase 1 applic 09/10/24 11:00 09/13/24 08:58 Collagenase 250 Unit/Gm Ointment 30 Gm Tube TOPICAL 1 applic DAILY JACQUELIN Administration Protocol Fluconazole 100 mg 09/11/24 20:30 09/13/24 08:48 Fluconazole 100 Mg Tab PO 100 mg DAILY JACQUELIN Administration Protocol Fludrocortisone Acetate 0.1 mg 09/10/24 09:00 09/13/24 08:48 Fludrocortisone 0.1 Mg Tab PO 0.1 mg BID JACQUELIN Administration Gabapentin 1,200 mg 09/10/24 09:00 09/13/24 08:49 Gabapentin 400 Mg Cap PO 1,200 mg TID JACQUELIN Administration Sodium Chloride 1,000 mls @ 130 mls/hr 09/09/24 19:15 09/13/24 02:45 Saline 0.9% IV Not Given .Q7H42M JACQUELIN Vancomycin HCl 500 mg/ Sodium 250 mls @ 125 mls/hr 09/13/24 09:00 09/13/24 08:58 Chloride IVPB 125 mls/hr Q24H JACQUELIN Administration Lactulose 10 gm 09/10/24 06:50 Lactulose 20 Gm/30 Ml Cup PO TID PRN Constipation Melatonin 6 mg 09/10/24 21:00 09/12/24 21:50 Melatonin 3 Mg Tablet PO 6 mg HS JACQUELIN Administration Morphine Sulfate 4 mg 09/09/24 19:07 09/12/24 20:24 Morphine Sulfate 4 Mg/Ml Syringe IV 4 mg Q4HR PRN Administration Severe Pain (Scale 7 to 10) Naloxone HCl 0.2 mg 09/09/24 19:07 Naloxone 0.4 Mg/Ml 1 Ml Vial IV Q2M PRN Opioid Reversal Pantoprazole Sodium 40 mg 09/10/24 09:00 09/13/24 08:49 Pantoprazole 40 Mg/10 Ml Vial IV 40 mg DAILY JACQUELIN Administration Phenytoin Sodium 100 mg 09/10/24 09:00 09/13/24 08:48 Phenytoin Sodium Extended 100 Mg Cap PO 100 mg TID JACQUELIN Administration Quetiapine Fumarate 25 mg 09/10/24 21:00 09/12/24 21:51 Quetiapine 25 Mg Tab PO 25 mg HS JACQUELIN Administration Venlafaxine HCl 75 mg 09/10/24 09:00 09/13/24 08:49 Venlafaxine Hcl 75 Mg Tab PO 75 mg TID JACQUELIN Administration Objective - Vital Signs Vital signs: Vital Signs Temp 97.4 F L 09/13/24 07:15 Pulse 89 09/13/24 07:40 Resp 17 09/13/24 07:40 BP 107/76 09/13/24 07:15 Pulse Ox 100 09/13/24 07:15 FiO2 Intake & Output 09/12/24 09/13/24 09/13/24 18:59 06:59 18:59 Output Total 2500 1700 0 Balance -2500 -1700 0 Weight 38.555 kg Output: Urine 2500 1700 Stool 0 0 Other: # Voids 0 # Bowel Movements 0 - Exam -GENERAL: The patient is alert and calm while decreased orientation x3 partially to place, , not in any acute distress. Thin built HEENT: Pupils are round and equally reacting to light. EOMI. No scleral icterus. No conjunctival pallor. Normocephalic, atraumatic. No pharyngeal erythema. No thyromegaly. CARDIOVASCULAR: S1 and S2 present. No murmurs, rubs, or gallops. PULMONARY: Chest is clear to auscultation, no wheezing , no crackles. -ABDOMEN: Soft, mild suprapubic tenderness and left upper quadrant tenderness , nondistended, normoactive bowel sounds. No palpable organomegaly. Urostomy in the right upper quadrant with no surrounding tenderness or leak or cellulitis MUSCULOSKELETAL: No joint swelling or deformity. EXTREMITIES: No cyanosis, clubbing, or pedal edema. NEUROLOGICAL: Gross neurological examination did not reveal any focal deficits. SKIN: No rashes. no petechiae. - Labs CBC & Chem 7: 09/12/24 04:16 09/13/24 06:32 Labs: Microbiology - Last 24 Hours (Table) 09/10/24 12:30 Anaerobic Culture - Preliminary Buttock Yumiko albicans 09/10/24 07:25 Blood Culture - Preliminary Blood 09/10/24 12:30 Gram Stain - Final Buttock Wound Culture - Final Methicillin resist S. aureus Assessment and Plan Assessment: Altered mental status most likely toxic/metabolic encephalopathy. Neurologist on the case to rule out neurological causes Acute urinary tract infection, recurrent could be related to urostomy in the right upper quadrant. Culture growing Yumiko which was likely the source of infection. Possible sepsis with tachycardia tachypnea and fever and leukocytosis, improved Hypernatremia, resolved Seizure disorder Stage II pressure ulcer of the right buttock area History of hysterectomy, gastric bypass procedure and urostomy Drug allergy to penicillin causing anaphylaxis History of Warnicke's Korsakoff syndrome History of small bowel obstruction and fecal impaction Debility History of peptic ulcer disease Neurofibromatosis Drains disease Legally blind Hearing difficulty History of GERD Plan: IV fluid discontinued Continue with m Diflucan, meropenem was discontinued and patient started on vancomycin as per ID team Continue with wound care Neurology service on the case and they recommend to taper off Topamax will continue on Dilantin Consult infectious disease team Labs and medication were reviewed.. Continue same treatment. Continue with symptomatic treatment. Resume home medication. Monitor labs and vitals. DVT and GI prophylaxis. Further recommendations as per clinical course of the patient DVT prophylaxis: Subcutaneous heparin GI Prophylaxis: Pepcid PT/OT: Pending Prognosis is guarded
--- NOTE | 2024-09-13 15:13 | P.PN ---
Subjective Progress Note Date: 09/13/24 Principal diagnosis: Reason for follow-up is UTI and sacral pressure ulcer Patient is a 39-year-old female with multiple comorbidities including fibromyalgia reflux pneumonia seizure disorder patient also have a urostomy and recent multiple admission to the hospital for a UTI patient has been transferred to [facility] from [facility] where patient apparently has been diagnosed with a UTI failing outpatient treatment. On today's evaluation that is 09/13/2024, patient did not have any fever and is breathing comfortably on room air, patient sleepy but arousable in no distress not a good historian overall no other changes reported with. Patient did have a creatinine 0.57 Objective - Vital Signs Vital signs: Vital Signs Temp 97.7 F 09/13/24 14:31 Pulse 87 09/13/24 14:31 Resp 19 09/13/24 14:31 BP 124/85 09/13/24 14:31 Pulse Ox 98 09/13/24 14:31 FiO2 Intake & Output 09/12/24 09/13/24 09/13/24 18:59 06:59 18:59 Intake Total 750 Output Total 2500 1700 0 Balance -2500 -1700 750 Weight 38.555 kg Intake: Intake, IV Titration 750 Amount Sodium Chloride 0.9% 1, 500 000 ml @ 130 mls/hr IV . Q7H42M [facility] Rx#:[id number] Vancomycin 500 mg In 250 Sodium Chloride 0.9% 250 ml @ 125 mls/hr IVPB Q24H JACQUELIN Rx#:[id number] Output: Urine 2500 1700 Stool 0 0 Other: # Voids 0 # Bowel Movements 0 - Exam GENERAL DESCRIPTION: Middle-age female lying in bed in no distress RESPIRATORY SYSTEM: Unlabored breathing , decreased breath sounds at bases HEART: S1 S2 regular rate and rhythm , ABDOMEN: Soft , no tenderness EXTREMITIES: No edema feet - Labs CBC & Chem 7: 09/12/24 04:16 09/13/24 06:32 Labs: Microbiology - Last 24 Hours (Table) 09/10/24 07:25 Blood Culture - Preliminary Blood 09/10/24 12:30 Anaerobic Culture - Preliminary Buttock Yumiko albicans Assessment and Plan (1) History of ESBL E. coli infection Current Visit: Yes Status: Acute Code(s): Z86.19 - PERSONAL HISTORY OF OTHER INFECTIOUS AND PARASITIC DISEASES SNOMED Code(s): 711971833 (2) UTI (urinary tract infection) Current Visit: Yes Status: Acute Code(s): N39.0 - URINARY TRACT INFECTION, SITE NOT SPECIFIED SNOMED Code(s): 02747666 (3) Stage III pressure ulcer of sacral region Current Visit: No Status: Acute Code(s): L89.153 - PRESSURE ULCER OF SACRAL REGION, STAGE 3 SNOMED Code(s): 33107216697044 (4) MRSA (methicillin resistant staph aureus) culture positive Current Visit: Yes Status: Acute Code(s): Z22.322 - CARRIER OR SUSPECTED CARRIER OF METHICILLIN RESIS STAPH SNOMED Code(s): 988301430 Plan: 1patient presented to hospital with mental status changes did have low-grade fever elevated white count and a positive UA concerning for possible urinary source in this patient who did have a urostomy last admission CT did shows evidence of right-sided hydronephrosis could be the etiology for his recurrent infection 2-urine culture has been requested with initial culture currently growing Yumiko repeat is currently pending 3-local wound care to the sacral wound with santyl followed by moist dressing keep the area of the pressure 4-patient sacral wound cultures are growing MRSA, will obtain a CT of the sacrum to make sure evidence of any sacral osteomyelitis and need for outpatient IV antibiotic therapy for now continue with vancomycin and Diflucan also check inflammatory markers Dictation was produced using [employer] dictation software. please excuse any grammatical, word or spelling errors. Time with Patient: Less than 30
--- NOTE | 2024-09-13 17:04 | CT ---
EXAMINATION TYPE: CT sacrum wo con DATE OF EXAM: 09/13/2024 COMPARISON: none CLINICAL INDICATION: Female, 39 years old with history of Sacral pressure ulcer positive MRSA rule ou t osteo; PHH, Sacral pressure ulcer, +MRSA rule out osteomyelitis CT DLP: 484.7 mGycm Automated exposure control for dose reduction was used. Unenhanced CT of the sacrum was performed wit h bone and soft tissue window settings submitted. FINDINGS: There is soft tissue edema with ulceration noted at the coccygeal level. There is a vague osseous def ect noted involving coccygeal segment 1. As well as associated sclerosis which could reflect underlying osteomyelitis. Correlate clinically . This is seen best on axial image 57 and sagittal image 31. The remaining sacrococcygeal segments ap pear unremarkable with this time. No evidence for pelvic mass. No fracture identified. IMPRESSION: CORRELATE FOR UNDERLYING OSTEOMYELITIS NOTED ABOVE. [facility], , 09/13/2024 5:02 PM
[2024-09-13 22:48] LABS: Glucose,Whole Blood 71 mg/dL (70-110)
[2024-09-14 04:35] LABS: African American GFR (CKD) >90 (>60 ml/min/1.73 sqM); C Reactive Protein 1.8 mg/dL (<1.0); Non-African American GFR(CKD) >90 (>60 ml/min/1.73 sqM)
[2024-09-14 09:15] LABS: Glucose,Whole Blood 63 mg/dL (70-110)
[2024-09-14 09:46] LABS: Basophils # (A) 0.03 X 10*3/uL (0.00-0.10); Basophils % (A) 0.8 %; Eosinophils % (A) 2.8 %; HCT 35.1 % (37.2-46.3); HGB 11.1 g/dL (12.0-15.0); Lymphocytes # (A) 1.05 X 10*3/uL (0.90-5.00); Lymphocytes % (A) 29.5 %; MCH 30.2 pg (27.0-32.0); MCHC 31.6 g/dL (32.0-37.0); MCV 95.4 FL (80.0-97.0); Mean Platelet Volume 10.1 FL (9.5-12.2); Monocytes # (A) 0.24 X 10*3/uL (0.20-1.00); Monocytes % (A) 6.7 %; NRBC Per 100 WBC 0 X 10*3/uL (0.00-0.01); Neutrophils # (A) 2.13 X 10*3/uL (1.80-7.70); Neutrophils % (A) 59.9 %; Platelet Count 234 X 10*3/uL (140-440); RBC 3.68 X 10*6/uL (4.10-5.20); RDW 14.5 % (11.5-14.5); WBC 3.56 X 10*3/uL (4.50-10.00)
[2024-09-14 09:46] LABS: Glucose,Whole Blood 82 mg/dL (70-110)
[2024-09-14] MEDS: DEXTROSE 50% SYRINGE 50 ML IVP STA (10:35)
[2024-09-14] MEDS: DEXTROSE 5%-0.9% NACL 1,000 ML IV SCH (10:35)
[2024-09-14 12:23] LABS: Erythrocyte Sedimentation Rate 7 mm/Hr (0-20)
--- NOTE | 2024-09-14 12:36 | P.PN ---
Subjective This is a pleasant 39 years old female with past medical history of multiple medical problems as below. She was transferred from [facility] for possible UTI that failed treatment. Patient has history of Warnicke's Korsakoff syndrome and seizures/epilepsy, history of suprapubic catheter which is not present now, neurofibromatosis, Raynaud's disease, legally blind and hearing difficulty, clubfoot and GERD. Patient currently looks confused, she does not know where she is at, she does not remember she came from another hospital or facility, she thinks is 2004 and she does not know the name of the president and she does not know why she is here. Other than then she looks, pleasant and relaxed sitting up in bed. Denies any specific complaint to me. Patient also slow to respond. As per records from [facility] she was recently treated for UTI and altered mental status 08/20-08/24. Then she was in the emergency room for altered mental status where she was treated for 2 days with IV fluid and discharged home to return back in 24 hours not eating and drinking. I called the Mr. Thapa over the phone and he told me she has been sick for about a month super tired sleepy, not eating well, not drinking well not doing anything. He states that she has been treated for 2 infection both of them were UTI. She is also had COVID. Prior to that her mentation was more awake and alert and oriented to the surrounding. As per there is no seizure-like activity. Patient is bedbound and not walking since 2019 where she was diagnosed with multiple vitamin deficiency and [facility] including vitamin B1, B6 and B12 deficiency among others. Also patient has been feeling generalized dizziness. He confirms to me she is full code. Patient is tachycardic with heart rate 116, 135 She had a fever of 99.2. Mildly tachypneic with breathing rate around 20. Labs showing leukocytosis which is worsening were 13,000 at [facility] currently 16.6. Sodium is elevated at 149, liver enzymes mildly elevated. INR is unremarkable, troponin is negative. Urine analysis suspicious for infection EKG showing sinus tachycardia at 133. CT of the brain done at [facility] showing no acute process per report. Patient currently on meropenem and normal saline 130 mL/h. Will resume her home medication but we lowered Seroquel from 50 down to 25 and we held her Ambien of 12.5 mg. 09/11 Patient remains confused to time place person. She looks relaxed not in distress, she can follow simple commands, for example w lin I ask her where the UTI area she points to her urinary bladder. She can tell the name of her Mr. Thapa. She denies headache dizziness weakness or numbness. No abdominal pain. Patient looks lethargic. No abdominal pain. Her right upper quadrant urostomy is in place. Leukocytosis improving yesterday down to 12,000, sodium normalized. Liver enzymes mildly elevated. Patient currently kept on meropenem. No IV fluid Neurology evaluated the patient and tapering off her Topamax. Dilantin discontinued. Level was less than 3.0. 09/12 Patient today is much better, she knows she is in [place] although she did not know in the hospital. She knew the year 2024 and August. She she know the name of the president. She knows why she has been admitted to the hospital stating she has infection but she thinks it is in the vagina. We explained to the patient it is her UTI. Patient however denies any vaginal symptom no discharge or itching or pain as she explains. No other new complaint. Her leukocytosis significantly improved from 12 down to 4.1, hemoglobin slightly low from 12 down to 10.5 with some elements of hemodilution. Her normal saline was discontinued She remains on meropenem, fluconazole was added because of urine culture showing Yumiko tropicalis. Neurology also following closely with the plan to stop Topamax. 09/13 Patient mentation improving slowly and gradually Neurologist evaluated the patient and tapering off her Topamax while keeping Dilantin and they recommended Vimpat only if she hasmore seizure, however she did not have any seizure today She has a history of ESBL UTI and she finished course of meropenem. Cultures growing Yumiko and currently fluconazole She has evidence of stage III sacral pressure ulcer Also looks infected with culture growing MRSA and patient was placed on IV vancomycin by ID team 09/14 Patient today mentation significantly better, she is up in bed She is on IV vancomycin and fluconazole for MRSA and Yumiko in the culture No breathing problem no chest pain but she is complaining from worse with eating. Patient continues on Protonix, will increase the frequency to twice daily Objective - Vital Signs Vital signs: Vital Signs Temp 96.6 F L 09/14/24 07:27 Pulse 75 09/14/24 07:27 Resp 16 09/14/24 07:27 BP 118/88 09/14/24 07:27 Pulse Ox 100 09/14/24 07:27 FiO2 Intake & Output 09/13/24 09/14/24 09/14/24 18:59 06:59 18:59 Intake Total 750 120 Output Total 0 1450 Balance 750 -1450 120 Intake: Intake, IV Titration 750 Amount Sodium Chloride 0.9% 1, 500 000 ml @ 130 mls/hr IV . Q7H42M JACQUELIN Rx#:[id number] Vancomycin 500 mg In 250 Sodium Chloride 0.9% 250 ml @ 125 mls/hr IVPB Q24H JACQUELIN Rx#:[id number] Oral 120 Output: Urine 1450 Stool 0 Other: # Voids 1 - Exam -GENERAL: The patient is alert and calm while decreased orientation x3 partially to place, , not in any acute distress. Thin built HEENT: Pupils are round and equally reacting to light. EOMI. No scleral icterus. No conjunctival pallor. Normocephalic, atraumatic. No pharyngeal erythema. No thyromegaly. CARDIOVASCULAR: S1 and S2 present. No murmurs, rubs, or gallops. PULMONARY: Chest is clear to auscultation, no wheezing , no crackles. -ABDOMEN: Soft, mild suprapubic tenderness and left upper quadrant tenderness , nondistended, normoactive bowel sounds. No palpable organomegaly. Urostomy in the right upper quadrant with no surrounding tenderness or leak or cellulitis MUSCULOSKELETAL: No joint swelling or deformity. EXTREMITIES: No cyanosis, clubbing, or pedal edema. NEUROLOGICAL: Gross neurological examination did not reveal any focal deficits. SKIN: No rashes. no petechiae. - Labs CBC & Chem 7: 09/14/24 04:05 09/14/24 03:53 Labs: Abnormal Lab Results - Last 24 Hours (Table) 09/14/24 09/14/24 09/14/24 Range/Units 03:53 04:05 09:13 WBC 3.56 L (4.50-10.00) X 10*3/uL RBC 3.68 L (4.10-5.20) X 10*6/uL Hgb 11.1 L (12.0-15.0) g/dL Hct 35.1 L (37.2-46.3) % MCHC 31.6 L (32.0-37.0) g/dL POC Glucose (mg/dL) 63 L (70-110) mg/dL C-Reactive Protein 1.8 H (<1.0) mg/dL Microbiology - Last 24 Hours (Table) 09/10/24 12:30 Anaerobic Culture - Final Buttock Yumiko albicans Yumiko glabrata 09/10/24 07:25 Blood Culture - Preliminary Blood Assessment and Plan Assessment: Altered mental status most likely toxic/metabolic encephalopathy. Neurologist on the case to rule out neurological causes, almost resolved Infected Stage II pressure ulcer of the right buttock area with culture growing MRSA Acute urinary tract infection, recurrent could be related to urostomy in the right upper quadrant. Culture growing Yumiko which was likely the source of infection. Epigastric pain and tenderness Possible sepsis with tachycardia tachypnea and fever and leukocytosis, improved Hypernatremia, resolved Seizure disorder History of hysterectomy, gastric bypass procedure and urostomy Drug allergy to penicillin causing anaphylaxis History of Warnicke's Korsakoff syndrome History of small bowel obstruction and fecal impaction Debility History of peptic ulcer disease Neurofibromatosis Drains disease Legally blind Hearing difficulty History of GERD Plan: IV fluid discontinued mentation improved with discontinuing with Topamax and other sedatives and treating the infection Continue with m Diflucan, and iv vancomycin as per ID team Increase Protonix to twice daily, if no improvement may consider consultation Continue with wound care Neurology service on the case and they recommend to taper off Topamax will continue on Dilantin Consult infectious disease team Labs and medication were reviewed.. Continue same treatment. Continue with symptomatic treatment. Resume home medication. Monitor labs and vitals. DVT and GI prophylaxis. Further recommendations as per clinical course of the patient DVT prophylaxis: Subcutaneous heparin GI Prophylaxis: Pepcid PT/OT: Pending Prognosis is guarded
--- NOTE | 2024-09-14 13:03 | P.PN ---
Subjective Progress Note Date: 09/14/24 Principal diagnosis: Reason for follow-up is UTI and sacral pressure ulcer Patient is a 39-year-old female with multiple comorbidities including fibromyalgia reflux pneumonia seizure disorder patient also have a urostomy and recent multiple admission to the hospital for a UTI patient has been transferred to [facility] from [facility] where patient apparently has been diagnosed with a UTI failing outpatient treatment. On today's evaluation that is 09/14/2024, Patient is afebrile patient is currently on room air and breathing comfortable no distress patient asleep arousable not a very good historian no other changes reported by the nursing staff. Patient white count is 3.[address] of the sacrum which shows evidence of osteo Objective - Vital Signs Vital signs: Vital Signs Temp 96.6 F L 09/14/24 07:27 Pulse 75 09/14/24 07:27 Resp 16 09/14/24 07:27 BP 118/88 09/14/24 07:27 Pulse Ox 100 09/14/24 07:27 FiO2 Intake & Output 09/13/24 09/14/24 09/14/24 18:59 06:59 18:59 Intake Total 750 120 Output Total 0 1450 Balance 750 -1450 120 Intake: Intake, IV Titration 750 Amount Sodium Chloride 0.9% 1, 500 000 ml @ 130 mls/hr IV . Q7H42M [facility] Rx#:[id number] Vancomycin 500 mg In 250 Sodium Chloride 0.9% 250 ml @ 125 mls/hr IVPB Q24H [facility] Rx#:[id number] Oral 120 Output: Urine 1450 Stool 0 Other: # Voids 1 - Exam GENERAL DESCRIPTION: Middle-age female lying in bed in no distress RESPIRATORY SYSTEM: Unlabored breathing , decreased breath sounds at bases HEART: S1 S2 regular rate and rhythm , ABDOMEN: Soft , no tenderness EXTREMITIES: No edema feet - Labs CBC & Chem 7: 09/14/24 04:05 09/14/24 03:53 Labs: Abnormal Lab Results - Last 24 Hours (Table) 09/14/24 09/14/24 09/14/24 Range/Units 03:53 04:05 09:13 WBC 3.56 L (4.50-10.00) X 10*3/uL RBC 3.68 L (4.10-5.20) X 10*6/uL Hgb 11.1 L (12.0-15.0) g/dL Hct 35.1 L (37.2-46.3) % MCHC 31.6 L (32.0-37.0) g/dL POC Glucose (mg/dL) 63 L (70-110) mg/dL C-Reactive Protein 1.8 H (<1.0) mg/dL Microbiology - Last 24 Hours (Table) 09/10/24 07:25 Blood Culture - Preliminary Blood 09/10/24 12:30 Anaerobic Culture - Preliminary Buttock Yumiko albicans Assessment and Plan (1) History of ESBL E. coli infection Current Visit: Yes Status: Acute Code(s): Z86.19 - PERSONAL HISTORY OF OTHER INFECTIOUS AND PARASITIC DISEASES SNOMED Code(s): 472728318 (2) UTI (urinary tract infection) Current Visit: Yes Status: Acute Code(s): N39.0 - URINARY TRACT INFECTION, SITE NOT SPECIFIED SNOMED Code(s): 16751902 (3) Stage III pressure ulcer of sacral region Current Visit: No Status: Acute Code(s): L89.153 - PRESSURE ULCER OF SACRAL REGION, STAGE 3 SNOMED Code(s): 51934209759269 (4) MRSA (methicillin resistant staph aureus) culture positive Current Visit: Yes Status: Acute Code(s): Z22.322 - CARRIER OR SUSPECTED CARRIER OF METHICILLIN RESIS STAPH SNOMED Code(s): 948173193 Plan: 1patient presented to hospital with mental status changes did have low-grade fever elevated white count and a positive UA concerning for possible urinary source in this patient who did have a urostomy last admission CT did shows evidence of right-sided hydronephrosis could be the etiology for his recurrent infection 2-urine culture has been requested with initial culture currently growing Yumiko repeat is currently pending 3-local wound care to the sacral wound with santyl followed by moist dressing keep the area of the pressure 4-patient sacral wound cultures are growing MRSA and Yumiko glabrata, CT has been suspicious for osteomyelitis patient is covered with the vancomycin we will switch Diflucan to Eraxis, will need a PICC line and outpatient IV antibiotics Dictation was produced using [employer] dictation software. please excuse any grammatical, word or spelling errors. Time with Patient: Less than 30
[2024-09-14] MEDS: ANIDULAFUNGIN 200 MG in SODIUM CHLORIDE 0.9% 200 ML IVPB ONE (17:02)
[2024-09-14] MEDS: PANTOPRAZOLE 40 MG/10 ML VIAL IV SCH (22:33)
[2024-09-15] MEDS: ANIDULAFUNGIN 100 MG in SODIUM CHLORIDE 0.9% 100 ML IVPB SCH (08:41)
[2024-09-15 08:51] LABS: African American GFR (CKD) >90 (>60 ml/min/1.73 sqM); Non-African American GFR(CKD) >90 (>60 ml/min/1.73 sqM)
[2024-09-15] MEDS: VANCOMYCIN TROUGH DUE 1 EACH MISC MISCELLANE ONE (09:08)
[2024-09-15 12:31] LABS: Glucose,Whole Blood 95 mg/dL (70-110)
[2024-09-15] MEDS: VANCOMYCIN 500 MG in SODIUM CHLORIDE 0.9% 250 ML IVPB SCH (20:14)
[2024-09-15] MEDS: VORICONAZOLE 200 MG TAB PO SCH (21:23)
--- NOTE | 2024-09-16 04:03 | P.PN ---
Subjective Date of service for this note is 09/15/2024 This is a pleasant 39 years old female with past medical history of multiple me dical problems as below. She was transferred from [facility] for possible UTI that failed renée atment. Patient has history of Warnicke's Korsakoff syndrome and seizures/epilepsy, history of suprapubic catheter which is not present now, neurofibromatosis, Raynaud's disease, legally blind and hearing difficulty, clubfoot and GERD. Patient currently looks confused, she does not know where she is at, she does not remember she came from another hospital or facility, she thinks is 2004 and she does not know the name of the president and she does not know why she is here. Other than then she looks, pleasant and relaxed sitting up in bed. Denies any specific complaint to me. Patient also slow to respond. As per records from [facility] she was recently treated for UTI and altered mental status 08/20-08/24. Then she was in the emergency room for altered mental status where she was treated for 2 days with IV fluid and discharged home to return back in 24 hours not eating and drinking. I called the Mr. Thapa over the phone and he told me she has been sick for about a month super tired sleepy, not eating well, not drinking well not doing anything. He states that she has been treated for 2 infection both of them were UTI. She is also had COVID. Prior to that her mentation was more awake and alert and oriented to the surrounding. As per there is no seizure-like activity. Patient is bedbound and not walking since 2019 where she was diagnosed with multiple vitamin deficiency and [facility] including vitamin B1, B6 and B12 deficiency among others. Also patient has been feeling generalized dizziness. He confirms to me she is full code. Patient is tachycardic with heart rate 116, 135 She had a fever of 99.2. Mildly tachypneic with breathing rate around 20. Labs showing leukocytosis which is worsening were 13,000 at [facility] currently 16.6. Sodium is elevated at 149, liver enzymes mildly elevated. INR is unremarkable, troponin is negative. Urine analysis suspicious for infection EKG showing sinus tachycardia at 133. CT of the brain done at [facility] showing no acute process per report. Patient currently on meropenem and normal saline 130 mL/h. Will resume her home medication but we lowered Seroquel from 50 down to 25 and we held her Ambien of 12.5 mg. 09/11 Patient remains confused to time place person. She looks relaxed not in distress, she can follow simple commands, for example when I ask her where the UTI area she points to her urinary bladder. She can tell the name of her Mr. Thapa. She denies headache dizziness weakness or numbness. No abdominal pain. Patient looks lethargic. No abdominal pain. Her right upper quadrant urostomy is in place. Leukocytosis improving yesterday down to 12,000, sodium normalized. Liver enzymes mildly elevated. Patient currently kept on meropenem. No IV fluid Neurology evaluated the patient and tapering off her Topamax. Dilantin discontinued. Level was less than 3.0. 09/12 Patient today is much better, she knows she is in [place] although she did not know in the hospital. She knew the year 2024 and August. She she know the name of the president. She knows why she has been admitted to the hospital stating she has infection but she thinks it is in the vagina. We explained to the patient it is her UTI. Patient however denies any vaginal symptom no discharge or itching or pain as she explains. No other new complaint. Her leukocytosis significantly improved from 12 down to 4.1, hemoglobin slightly low from 12 down to 10.5 with some elements of hemodilution. Her normal saline was discontinued She remains on meropenem, fluconazole was added because of urine culture showing Yumiko tropicalis. Neurology also following closely with the plan to stop Topamax. 09/13 Patient mentation improving slowly and gradually Neurologist evaluated the patient and tapering off her Topamax while keeping Dilantin and they recommended Vimpat only if she hasmore seizure, however she did not have any seizure today She has a history of ESBL UTI and she finished course of meropenem. Cultures growing Yumiko and currently fluconazole She has evidence of stage III sacral pressure ulcer Also looks infected with culture growing MRSA and patient was placed on IV vancomycin by ID team 09/14 Patient today mentation significantly better, she is up in bed She is on IV vancomycin and fluconazole for MRSA and Yumiko in the culture No breathing problem no chest pain but she is complaining from worse with eating. Patient continues on Protonix, will increase the frequency to twice daily 09/15 Patient seen and examined by me at bedside. Patient mentation improved after stopping her sedatives and treating her wound infection with IV vancomycin. CT sacrum showing possible underlying sacral osteomyelitis. ESR is 7 However patient since yesterday is developing epigastric pain and tenderness which prevent her from eating, therefore we do not to consult surgical team for further evaluation. Also patient currently on IV Protonix. Objective - Vital Signs Vital signs: Vital Signs Temp 98 F 09/16/24 02:00 Pulse 77 09/16/24 02:00 Resp 17 09/15/24 14:00 BP 138/92 09/16/24 02:00 Pulse Ox 100 09/16/24 02:00 FiO2 Intake & Output 09/15/24 09/15/24 09/16/24 06:59 18:59 06:59 Output Total 1099 1100 2049 Balance -1099 -1099 Weight 38.555 kg Output: Urine 1099 1099 2049 Other: # Voids 1 # Bowel Movements 1 - Exam -GENERAL: The patient is alert and calm while decreased orientation x3 partially to place, , not in any acute distress. Thin built HEENT: Pupils are round and equally reacting to light. EOMI. No scleral icterus. No conjunctival pallor. Normocephalic, atraumatic. No pharyngeal erythema. No thyromegaly. CARDIOVASCULAR: S1 and S2 present. No murmurs, rubs, or gallops. PULMONARY: Chest is clear to auscultation, no wheezing , no crackles. -ABDOMEN: Soft, mild suprapubic tenderness and left upper quadrant tenderness , nondistended, normoactive bowel sounds. No palpable organomegaly. Urostomy in the right upper quadrant with no surrounding tenderness or leak or cellulitis MUSCULOSKELETAL: No joint swelling or deformity. EXTREMITIES: No cyanosis, clubbing, or pedal edema. NEUROLOGICAL: Gross neurological examination did not reveal any focal deficits. SKIN: No rashes. no petechiae. - Labs CBC & Chem 7: 09/14/24 04:05 09/15/24 08:30 Labs: Microbiology - Last 24 Hours (Table) 09/10/24 07:25 Blood Culture - Final Blood Assessment and Plan Assessment: Altered mental status most likely toxic/metabolic encephalopathy. Neurologist on the case to rule out neurological causes, almost resolved Infected Stage II pressure ulcer of the right buttock area with culture growing MRSA, . Sacral CT showing possible underlying osteomyelitis Acute urinary tract infection, recurrent could be related to urostomy in the right upper quadrant. Culture growing Yumiko which was likely the source of infection. Epigastric pain and tenderness Possible sepsis with tachycardia tachypnea and fever and leukocytosis, improved Hypernatremia, resolved Seizure disorder History of hysterectomy, gastric bypass procedure and urostomy Drug allergy to penicillin causing anaphylaxis History of Warnicke's Korsakoff syndrome History of small bowel obstruction and fecal impaction Debility History of peptic ulcer disease Neurofibromatosis Drains disease Legally blind Hearing difficulty History of GERD Plan: IV fluid discontinued mentation improved with discontinuing with Topamax and other sedatives and treating the infection Continue with m Diflucan, and iv vancomycin as per ID team Continue withProtonix to twice daily, if no improvement, consult surgery team for further colon evaluation Continue with wound care Neurology service on the case and they recommend to taper off Topamax will continue on Dilantin Consult infectious disease team Labs and medication were reviewed.. Continue same treatment. Continue with symptomatic treatment. Resume home medication. Monitor labs and vitals. DVT and GI prophylaxis. Further recommendations as per clinical course of the patient DVT prophylaxis: Subcutaneous heparin GI Prophylaxis: Pepcid PT/OT: Pending Prognosis is guarded
[2024-09-16 04:41] LABS: African American GFR (CKD) >90 (>60 ml/min/1.73 sqM); Non-African American GFR(CKD) >90 (>60 ml/min/1.73 sqM); Phenytoin (Dilantin) 11.4 ug/mL
--- NOTE | 2024-09-16 12:31 | P.GSCN ---
History of Present Illness Consult date: 09/16/24 History of present illness: CHIEF COMPLAINT: UTI HISTORY OF PRESENT ILLNESS: This is a 39 female was transferred from [place] to our facility for IV antibiotics for her UTI. She also had altered mental status. She is followed by multiple consultants. Surgical service consulted in regards to epigastric abdominal pain. Patient reports that she had 1 episode of epigastric pain after eating Jell-O yesterday. This pain has resolved. She was able to eat today. Denies any nausea or vomiting. Patient has a surgical history of Barbara-en-Y in 2013 cholecystectomy and hysterectomy. She reports that she thinks she had an EGD was several years ago. Patient has disability and is wheelchair or bedbound. She reports having head trauma several years ago that has caused her to be immobile. PAST MEDICAL HISTORY: See below PAST SURGICAL HISTORY: See below MEDICATIONS: See below ALLERGIES: See below SOCIAL HISTORY: No illicit drug use. REVIEW OF SYSTEMS: CONSTITUTIONAL: Denies fever or chills. HEENT: Denies blurred vision, vision changes, or eye pain. Denies hemoptysis CARDIOVASCULAR: Denies chest pain or pressure. RESPIRATORY: No shortness of breath. GASTROINTESTINAL: See HPI for pertinent findings HEMATOLOGIC: Denies bleeding disorders. GENITOURINARY: Denies any blood in urine or increased urinary frequency. SKIN: Denies pruitis. Denies rash. PHYSICAL EXAM: VITAL SIGNS: Reviewed GENERAL: Well-developed in no acute distress. HEENT: No sclera icterus. Extraocular movements grossly intact. Moist buccal mucosa. Head is atraumatic, normocephalic. No nasal drainage. ABDOMEN: Soft. Nondistended. Nontender. No rebound or guarding. NEUROLOGIC: Alert and oriented. Cranial nerves II through XII grossly intact. LABORATORY DATA: WBC 3.56 Hgb 11.1 platelets 234 Sodium 146 potassium 3.7 creatinine 0.64 IMAGING: ASSESSMENT: 1. Epigastric abdominal pain now resolved PLAN: -Patient tolerating regular diet -No surgical intervention planned at this time -Continue to monitor Physician Electrical Helper note has been reviewed by physician. Signing provider agrees with the documented findings, assessment, and plan of care. I have personally seen and examined the patient, reviewed the FINANCIAL RECRUITER /PAs history, exam and MDM and agree with the assessment and plan as written. Based on total visit time, I have performed more than 50% of the visit. As above: Patient with multiple medical issues. Denies abdominal pain or dysphagia currently. No plans for intervention at this time. Will sign off. Please reconsult if symptoms recur. Past Medical History Past Medical History: Fibromyalgia, GERD/Reflux, Pneumonia, Seizure Disorder Additional Past Medical History / Comment(s): has seizures on a daily basis one or more a day, cHRONIC NECK/BACK PAIN, N/T FINGERS AND TOES, RAYNAUDS SYN. MENIERE'S,tinnitus, past uterine prolpase(sx) IBS, MUSCLE WEAKNESS, USES WALKER OR W/C History of Any Multi-Drug Resistant Organisms: ESBL, MRSA Year Discovered:: 09/10/24 -MRSA; 01/06/24 -ESBL MDRO Source:: MRSA- buttock, urine; ESBL- urine Past Surgical History: Bariatric Surgery, Cholecystectomy, Hysterectomy Additional Past Surgical History / Comment(s): EYE SX (MUSCLES), barbara en y 2012 Past Anesthesia/Blood Transfusion Reactions: No Reported Reaction Additional Past Anesthesia/Blood Transfusion Reaction / Comm: clausterphobia Past Psychological History: Anxiety, Depression Smoking Status: Unknown if ever smoked Past Alcohol Use History: Unable to Obtain Past Drug Use History: Unable to Obtain, Marijuana - Past Family History Mother Family Medical History: Cancer Additional Family Medical History / Comment(s): TONGUE Father Family Medical History: Hypertension Medications and Allergies Home Medications Medication Instructions Recorded Confirmed Type QUEtiapine FUMARATE 50 mg PO HS 11/25/19 09/09/24 History Fludrocortisone [Florinef] 0.1 mg PO BID 07/19/21 09/09/24 History Famotidine 40 mg PO HS 01/05/24 09/09/24 History Oxybutynin Chloride [oxyBUTYnin 10 mg PO DAILY 01/05/24 09/09/24 History chloride ER] Pyridoxine [Vitamin B-6] 50 mg PO DAILY 01/05/24 09/09/24 History Thiamine [Vitamin B-1] 100 mg PO DAILY 01/05/24 09/09/24 History Topiramate [Topamax] 50 mg PO TID 01/05/24 09/09/24 History Cranberry/Vitamin C 60mg/250mg 1 tab PO DAILY 08/20/24 09/09/24 History HYDROcodone/APAP 7.5-325MG [[place] 1 tab PO Q6H PRN 08/20/24 09/09/24 History 7.5-325] Lactulose 10 gm PO TID PRN 08/20/24 09/09/24 History Multivit-Min/Iron/Folic/Lutein 1 tab PO DAILY 08/20/24 09/09/24 History [Centrum Silver Women Tablet] Phenytoin Sodium Extended 100 mg PO TID 08/20/24 09/09/24 History [Dilantin] Sodium Bicarbonate Tab 650 mg PO BID 08/20/24 09/09/24 History Venlafaxine HCl [Effexor] 75 mg PO TID 08/20/24 09/09/24 History allopurinoL [Zyloprim] 100 mg PO DAILY 08/20/24 09/09/24 History busPIRone HCl [Buspar] 5 mg PO TID 08/20/24 09/09/24 History Baclofen [Lioresal] 20 mg PO TID 09/09/24 09/09/24 History Gabapentin 1,200 mg PO TID 09/09/24 09/09/24 History Zolpidem Tartrate [Ambien Cr] 12.5 mg PO HS 09/09/24 09/09/24 History Vancomycin HCl in 5 % Dextrose 0.5 gm IV Q12H #40 each 09/16/24 Rx [Vancomycin 1.25 Gram/250Ml-D5w] Voriconazole [Vfend] 200 mg PO Q12HR #28 tablet 09/16/24 Rx Allergies Allergy/AdvReac Type Severity Reaction Status Date / Time levetiracetam [From [facility]] Allergy Rash/Hives Verified 09/09/24 19:45 Penicillins Allergy "STOPPED Verified 09/09/24 19:45 BREATHING" NSAIDS (Non-Steroidal AdvReac "MAY CAUSE Verified 09/09/24 19:45 Anti-Inflamma ULCERS R/T BARIATRIC SX" Surgical - Exam Vital Signs Temp Pulse Resp BP Pulse Ox 97.6 F 117 H 20 121/79 100 09/09/24 18:46 09/09/24 18:46 09/09/24 18:46 09/09/24 18:46 09/09/24 18:46 Results - Labs 09/14/24 04:05 09/16/24 03:54 Microbiology - Last 24 Hours (Table) 09/10/24 07:25 Blood Culture - Final Blood Diabetes panel 09/16/24 Range/Units 03:54 Creatinine 0.64 (0.52-1.04) mg/dL Pituitary panel 09/16/24 Range/Units 03:54 Creatinine 0.64 (0.52-1.04) mg/dL Adrenal panel 09/16/24 Range/Units 03:54 Creatinine 0.64 (0.52-1.04) mg/dL
--- NOTE | 2024-09-16 12:46 | P.PN ---
Subjective Progress Note Date: 09/15/24 Principal diagnosis: Reason for follow-up is UTI and sacral pressure ulcer Patient is a 39-year-old female with multiple comorbidities including fibromyalgia reflux pneumonia seizure disorder patient also have a urostomy and recent multiple admission to the hospital for a UTI patient has been transferred to [facility] from [facility] where patient apparently has been diagnosed with a UTI failing outpatient treatment. On today's evaluation that is 09/15/2024, patient has been afebrile, patient is breathing comfortably and is currently on room air, patient denies having any significant cough no chest pain, patient denies nausea vomiting or diarrhea and no abdominal pain. Patient did have a creatinine 0.74 Vanco trough for less than 5.0 Objective - Vital Signs Vital signs: Vital Signs Temp 97.7 F 09/15/24 08:00 Pulse 84 09/15/24 08:00 Resp 17 09/15/24 08:00 BP 120/84 09/15/24 08:00 Pulse Ox 98 09/15/24 08:00 FiO2 Intake & Output 09/14/24 09/15/24 09/15/24 18:59 06:59 18:59 Intake Total 1135 Output Total 600 1100 Balance 535 -1100 Weight 38.555 kg Intake: Intake, IV Titration 1015 Amount Dextrose 5%-0.9% NaCl 1, 375 000 ml @ 75 mls/hr IV . [id number] [facility] Rx#:[id number] Sodium Chloride 0.9% 1, 390 000 ml @ 130 mls/hr IV . Q7H42M [facility] Rx#:[id number] Vancomycin 500 mg In 250 Sodium Chloride 0.9% 250 ml @ 125 mls/hr IVPB Q24H [facility] Rx#:[id number] Oral 120 Output: Urine 600 1100 Stool 0 Other: # Voids 1 # Bowel Movements 1 - Exam GENERAL DESCRIPTION: Middle-age female lying in bed in no distress RESPIRATORY SYSTEM: Unlabored breathing , decreased breath sounds at bases HEART: S1 S2 regular rate and rhythm , ABDOMEN: Soft , no tenderness EXTREMITIES: No edema feet - Labs CBC & Chem 7: 09/14/24 04:05 09/16/24 03:54 Labs: Microbiology - Last 24 Hours (Table) 09/10/24 07:25 Blood Culture - Final Blood 09/10/24 12:30 Anaerobic Culture - Final Buttock Yumiko albicans Yumiko glabrata Assessment and Plan (1) History of ESBL E. coli infection Current Visit: Yes Status: Acute Code(s): Z86.19 - PERSONAL HISTORY OF OTHER INFECTIOUS AND PARASITIC DISEASES SNOMED Code(s): 312635974 (2) UTI (urinary tract infection) Current Visit: Yes Status: Acute Code(s): N39.0 - URINARY TRACT INFECTION, SITE NOT SPECIFIED SNOMED Code(s): 30741024 (3) Stage III pressure ulcer of sacral region Current Visit: No Status: Acute Code(s): L89.153 - PRESSURE ULCER OF SACRAL REGION, STAGE 3 SNOMED Code(s): 89519232180266 (4) MRSA (methicillin resistant staph aureus) culture positive Current Visit: Yes Status: Acute Code(s): Z22.322 - CARRIER OR SUSPECTED CARRIER OF METHICILLIN RESIS STAPH SNOMED Code(s): 508923826 Plan: 1patient presented to hospital with mental status changes did have low-grade fever elevated white count and a positive UA concerning for possible urinary source in this patient who did have a urostomy last admission CT did shows evidence of right-sided hydronephrosis could be the etiology for his recurrent infection 2-urine culture has been requested with initial culture currently growing Yumiko repeat is currently pending 3-local wound care to the sacral wound with santyl followed by moist dressing keep the area of the pressure 4-patient sacral wound cultures are growing MRSA and Yumiko glabrata, CT has been suspicious for osteomyelitis patient is covered with the vancomycin and Eraxis,, per the piano case maker patient cannot go to the rehab with IV Eraxis because of the cost per discussion with the pharmacist Eraxis has been switched over to voriconazole and the dose of Dilantin has been adjusted per there recommendation Dictation was produced using [employer] dictation software. please excuse any gr ammatical, word or spelling errors. Time with Patient: Less than 30
--- NOTE | 2024-09-16 12:47 | P.PN ---
Subjective Progress Note Date: 09/16/24 Principal diagnosis: Reason for follow-up is UTI and sacral pressure ulcer Patient is a 39-year-old female with multiple comorbidities including fibromyalgia reflux pneumonia seizure disorder patient also have a urostomy and recent multiple admission to the hospital for a UTI patient has been transferred to [facility] from [facility] where patient apparently has been diagnosed with a UTI failing outpatient treatment. On today's evaluation that is 09/16/2024, Patient is afebrile this morning patient is more awake and alert denies having any chest pain shortness of breath or cough, the patient is currently on room air, patient denies any abdominal pain no diarrhea no nausea no vomiting. Did have creatinine 0.64, Vanco trough is 11.4 Objective - Vital Signs Vital signs: Vital Signs Temp 98.4 F 09/16/24 07:20 Pulse 69 09/16/24 07:20 Resp 17 09/16/24 07:20 BP 122/89 09/16/24 07:20 Pulse Ox 100 09/16/24 07:20 FiO2 Intake & Output 09/15/24 09/16/24 09/16/24 18:59 06:59 18:59 Intake Total 50 Output Total 1100 2925 Balance -1100 -2925 50 Weight 38.555 kg Intake: Oral 50 Output: Urine 1100 2925 - Exam GENERAL DESCRIPTION: Middle-age female lying in bed in no distress RESPIRATORY SYSTEM: Unlabored breathing , decreased breath sounds at bases HEART: S1 S2 regular rate and rhythm , ABDOMEN: Soft , no tenderness EXTREMITIES: No edema feet - Labs CBC & Chem 7: 09/14/24 04:05 09/16/24 03:54 Labs: Microbiology - Last 24 Hours (Table) 09/10/24 07:25 Blood Culture - Final Blood Assessment and Plan (1) History of ESBL E. coli infection Current Visit: Yes Status: Acute Code(s): Z86.19 - PERSONAL HISTORY OF OTHER INFECTIOUS AND PARASITIC DISEASES SNOMED Code(s): 806819317 (2) UTI (urinary tract infection) Current Visit: Yes Status: Acute Code(s): N39.0 - URINARY TRACT INFECTION, SITE NOT SPECIFIED SNOMED Code(s): 25021822 (3) Stage III pressure ulcer of sacral region Current Visit: No Status: Acute Code(s): L89.153 - PRESSURE ULCER OF SACRAL REGION, STAGE 3 SNOMED Code(s): 66195443659687 (4) MRSA (methicillin resistant staph aureus) culture positive Current Visit: Yes Status: Acute Code(s): Z22.322 - CARRIER OR SUSPECTED CARRIER OF METHICILLIN RESIS STAPH SNOMED Code(s): 966708146 Plan: 1patient presented to hospital with mental status changes did have low-grade fever elevated white count and a positive UA concerning for possible urinary source in this patient who did have a urostomy last admission CT did shows evidence of right-sided hydronephrosis could be the etiology for his recurrent infection 2-urine culture has been requested with initial culture currently growing Yumiko repeat is currently pending 3-local wound care to the sacral wound with santyl followed by moist dressing keep the area of the pressure 4-patient sacral wound cultures are growing MRSA and Yumiko glabrata, CT has been suspicious for osteomyelitis patient is covered with the vancomycin and Eraxis,, per the transplant case manager patient cannot go to the rehab with IV Eraxis because of the cost per discussion with the pharmacist Eraxis has been switched over to voriconazole and the dose of Dilantin has been adjusted per there recommendation 5will order the PICC line and await arrangement of outpatient IV antibiotics by the transplant case manager before discharge, will need a 6-week course of IV vancomycin dosed by pharmacy trough of 15 Dictation was produced using [employer] dictation software. please excuse any grammatical, word or spelling errors. Time with Patient: Less than 30
[2024-09-16] MEDS: VANCOMYCIN TROUGH DUE 1 EACH MISC MISCELLANE ONE (14:35)
--- NOTE | 2024-09-17 05:49 | P.PN ---
Subjective Progress Note Date: 09/16/24 This is a pleasant 39 years old female with past medical history of multiple medical problems as below. She was transferred from [facility] for possible UTI that failed treatment. Patient has history of Warnicke's Korsakoff syndrome and seizures/epilepsy, history of suprapubic catheter which is not present now, neurofibromatosis, Raynaud's disease, legally blind and hearing difficulty, clubfoot and GERD. Patient currently looks confused, she does not know where she is at, she does not remember she came from another hospital or facility, she thinks is 2004 and she does not know the name of the president and she does not know why she is here. Other than then she looks, pleasant and relaxed sitting up in bed. Denies any specific complaint to me. Patient also slow to respond. As per records from [facility] she was recently treated for UTI and altered mental status 08/20-08/24. Then she was in the emergency room for altered mental status where she was treated for 2 days with IV fluid and discharged home to return back in 24 hours not eating and drinking. I called the Mr. Thapa over the phone and he told me she has been sick for about a month super tired sleepy, not eating well, not drinking well not doing anything. He states that she has been treated for 2 infection both of them were UTI. She is also had COVID. Prior to that her mentation was more awake and alert and oriented to the surrounding. As per there is no seizure-like activity. Patient is bedbound and not walking since 2019 where she was diagnosed with multiple vitamin deficiency and [facility] including vitamin B1, B6 and B12 deficiency among others. Also patient has been feeling generalized dizziness. He confirms to me she is full code. Patient is tachycardic with heart rate 116, 135 She had a fever of 99.2. Mildly tachypneic with breathing rate around 20. Labs showing leukocytosis which is worsening were 13,000 at [facility] currently 16.6. Sodium is elevated at 149, liver enzymes mildly elevated. INR is unremarkable, troponin is negative. Urine analysis suspicious for infection EKG showing sinus tachycardia at 133. CT of the brain done at [facility] showing no acute process per report. Patient currently on meropenem and normal saline 130 mL/h. Will resume her home medication but we lowered Seroquel from 50 down to 25 and we held her Ambien of 12.5 mg. 09/11 Patient remains confused to time place person. She looks relaxed not in distress, she can follow simple commands, for example when I ask her where the UTI area she points to her urinary bladder. She can tell the name of her Mr. Thapa. She denies headache dizziness weakness or numbness. No abdominal pain. Patient looks lethargic. No abdominal pain. Her right upper quadrant urostomy is in place. Leukocytosis improving yesterday down to 12,000, sodium normalized. Liver e nzymes mildly elevated. Patient currently kept on meropenem. No IV fluid Neurology evaluated the patient and tapering off her Topamax. Dilantin discontinued. Level was less than 3.0. 09/12 Patient today is much better, she knows she is in [place] although she did not know in the hospital. She knew the year 2024 and August. She she know the name of the president. She knows why she has been admitted to the hospital stating she has infection but she thinks it is in the vagina. We explained to the patient it is her UTI. Patient however denies any vaginal symptom no discharge or itching or pain as she explains. No other new complaint. Her leukocytosis significantly improved from 12 down to 4.1, hemoglobin slightly low from 12 down to 10.5 with some elements of hemodilution. Her normal saline was discontinued She remains on meropenem, fluconazole was added because of urine culture showing Yumiko tropicalis. Neurology also following closely with the plan to stop Topamax. 09/13 Patient mentation improving slowly and gradually Neurologist evaluated the patient and tapering off her Topamax while keeping Dilantin and they recommended Vimpat only if she hasmore seizure, however she did not have any seizure today She has a history of ESBL UTI and she finished course of meropenem. Cultures growing Yumiko and currently fluconazole She has evidence of stage III sacral pressure ulcer Also looks infected with culture growing MRSA and patient was placed on IV vancomycin by ID team 09/14 Patient today mentation significantly better, she is up in bed She is on IV vancomycin and fluconazole for MRSA and Yumiko in the culture No breathing problem no chest pain but she is complaining from worse with eating. Patient continues on Protonix, will increase the frequency to twice daily 09/15 Patient seen and examined by me at bedside. Patient mentation improved after stopping her sedatives and treating her wound infection with IV vancomycin. CT sacrum showing possible underlying sacral osteomyelitis. ESR is 7 However patient since yesterday is developing epigastric pain and tenderness which prevent her from eating, therefore we do not to consult surgical team for further evaluation. Also patient currently on IV Protonix. 09/16/2024 Patient is seen in follow-up today with infectious disease following and is continued with local wound care and will require a PICC line on discharge for IV antibiotic therapy. Patient will be going to [facility] on discharge and requires insurance authorization which is currently pending. Patient to continue with local wound care of the sacral region with frequent offloading. General surgery was consulted for abdominal pain which has resolved and will continue patient on current bowel regimen. Patient is afebrile with no reports of chest pain or shortness of breath. Review of systems: Constitutional: No reports of fatigue, fever, or chills Cardiovascular: No reports of chest pain or palpitations Respiratory: No reports of shortness of breath or cough GI: No reports of nausea, vomiting, or diarrhea : No reports of dysuria or retention Neurovascular: reports of weakness, patient reports bedbound All medications have been reviewed Physical exam: Gen: This is a 39-year-old female who is awake, alert and oriented x 2, baseline, confused, appears older than stated age, ill-appearing HEENT: Head is atraumatic, normocephalic. Pupils equal, round. Sclerae is anicteric. NECK: Supple. No JVD. No lymphadenopathy. No thyromegaly. LUNGS: Diminished breath sounds bilaterally otherwise clear to auscultation. No wheezes or rhonchi. No intercostal retractions. HEART: S1, S2 are muffled ABDOMEN: Soft. Bowel sounds are present. No masses. No tenderness. EXTREMITIES: No pedal edema. No calf tenderness. NEUROLOGICAL: Patient is awake, alert and oriented x to. Diffusely weak Assessment: Altered mental status most likely toxic/metabolic encephalopathy. Improved at baseline Infected Stage III pressure ulcer of the right buttock area with culture growing MRSA, . Sacral CT showing possible underlying osteomyelitis Acute urinary tract infection, recurrent likely related to urostomy in the right upper quadrant. Culture growing Yumiko which was likely the source of infection. Epigastric pain and tenderness, resolved sepsis, present on admission secondary to stage III pressure ulcer along with UTI with tachycardia tachypnea and fever and leukocytosis, improved Hypernatremia, resolved Seizure disorder History of hysterectomy, gastric bypass procedure and urostomy Drug allergy to penicillin causing anaphylaxis History of Warnicke's Korsakoff syndrome History of small bowel obstruction and fecal impaction Debility and mostly bedbound History of peptic ulcer disease Neurofibromatosis Drains disease Legally blind Hearing difficulty History of GERD Moderate calorie protein malnutrition with a BMI of 18.4 GI prophylaxis DVT prophylaxis Full code Plan: IV fluid discontinued mentation improved with discontinuing with Topamax and other sedatives and treating the infection Continue with m Diflucan, and iv vancomycin as per ID team. Patient will require a PICC line for discharge and will order as patient will be going to [facility] Patient was having some diffuse abdominal pain and constipation was evaluated by general surgery with no plans of intervention reporting abdominal pain has resolved. Continue bowel regimen as needed as well as scheduled. Continue with wound care Neurology service on the case and they recommend to taper off Topamax will continue on Dilantin Case management following and has submitted for insurance authorization and has been accepted at [facility] pending Auth Due to multiple complex medical issues, overall prognosis is guarded The impression and plan of care has been dictated by Sera Cottrell, Nurse Practitioner as directed. Dr. Asim MD I have performed a history and examination and MDM of this patient, discussed the same with the dictator, and agree with the dictator's assessment and plan as written ,documented as a scribe. Based on total visit time, I have performed more than 50% of the visit. Objective - Vital Signs Vital signs: Vital Signs Temp 97.9 F 09/17/24 00:45 Pulse 59 L 09/17/24 00:45 Resp 18 09/17/24 00:45 BP 112/68 09/17/24 00:45 Pulse Ox 98 09/17/24 00:45 FiO2 Intake & Output 09/16/24 09/16/24 09/17/24 06:59 18:59 06:59 Intake Total 50 Output Total 2925 1000 1800 Balance -2925 -950 -1800 Intake: Oral 50 Output: Urine 2925 1000 1800 - Labs CBC & Chem 7: 09/14/24 04:05 09/16/24 03:54
[2024-09-17 07:18] LABS: African American GFR (CKD) >90 (>60 ml/min/1.73 sqM); Anion Gap 4 mmol/L; Blood Urea Nitrogen 7 mg/dL (7-17); Calcium 8.6 mg/dL (8.4-10.2); Carbon Dioxide 34 mmol/L (22-30); Chloride 107 mmol/L (98-107); Glucose 81 mg/dL (74-99); Non-African American GFR(CKD) >90 (>60 ml/min/1.73 sqM); Sodium 145 mmol/L (137-145)
[2024-09-17 07:33] LABS: Potassium 1.9 mmol/L (3.5-5.1)
[2024-09-17] MEDS ORDERED: Potassium Replacement Protocol 1 EACH MISC MISCELLANE PRN ×2 (08:11→08:43)
[2024-09-17] MEDS: POTASSIUM CHLORIDE ER 20 MEQ TAB.ER PO ONE ×2 (09:17→11:30)
--- NOTE | 2024-09-17 09:36 | P.PN ---
Subjective Progress Note Date: 09/16/24 Patient was initially seen by Dr. Robi Morris. Please refer to his note for details. Patient is a 39-year-old female with history of seizure disorder and multiple other medical conditions, was brought to the hospital from facility because of need for IV antibiotics for UTI. Patient was seen for a follow-up. Patient denies headache. She admits to having dizziness when she sits up. Patient admits to having some seizure-like episodes in the hospital as well. I spoke to patient's nurse, who states that patient reports of having some seizures although no one has witnessed seizures in the hospital. She herself, or the night nurse have not witnessed any seizures. She still is very confused, thinking that her and kids have visited her although they have not. Objective - Vital Signs Vital signs: Vital Signs Temp 98.4 F 09/16/24 07:20 Pulse 69 09/16/24 07:20 Resp 17 09/16/24 07:20 BP 122/89 09/16/24 07:20 Pulse Ox 100 09/16/24 07:20 FiO2 Intake & Output 09/15/24 09/16/24 09/16/24 18:59 06:59 18:59 Intake Total 50 Output Total 1100 2925 Balance -1100 -2925 50 Weight 38.555 kg Intake: Oral 50 Output: Urine 1100 2925 - Exam On examination patient is a young female, appears very malnutrition, cachectic appearing female. Patient has good inspector purchased parts, biceps, triceps but patient has bilateral footdrop. She has heel cord shortening bilaterally. Patient is nonambulatory. Patient has overall reduced muscle mass. - Labs CBC & Chem 7: 09/14/24 04:05 09/17/24 06:35 Labs: Microbiology - Last 24 Hours (Table) 09/10/24 07:25 Blood Culture - Final Blood Assessment and Plan Assessment: This is a 39-year-old woman with history of epilepsy, Warnicke encephalopathy, recurrent urinary tract infection who was transferred from [facility] for escalation of care of her urinary tract infection since she failed her outpatient treatment and needed IV antibiotic. Patient was in our facility a few weeks ago and had extensive neurologic workup and had CSF study which was unremarkable for any underlying infection as well as an EEG which was normal. Altered mental status seems due to septic encephalopathy from her urosepsis--currently she was responding to questions correctly and following simple commands. Acute urinary tract infection History of epilepsy on Dilantin History of Wernicke encephalopathy History of Mnire's disease History of Raynaud's disease History of recent COVID-19 infection History of chronic indwelling suprapubic catheter Wheelchair-bound History of recurrent urinary tract infection History of GERD History of anxiety History of depression Plan: Patient phenytoin 100 mg, 3 times daily is resumed. It seems per our last note her outpatient neurologist Dr. Jo has stopped Topamax and placed her on Dilantin. Topamax can decrease appetite and make weight loss further worse. Patient is off Topamax. If has further seizure, recommend adding Vimpat 50mg bid. Repeat Dilantin level is therapeutic 11.4. Continue Dilantin 100 mg 3 times a day. Seizure precautions seizure pads Recommend the patient to follow-up with her outpatient neurologist within 3 weeks Will defer the rest of the medical management to the primary team.
[2024-09-17] MEDS: POTASSIUM CHLORIDE 10 MEQ in WATER FOR INJECTION 1 100ML.BAG IVPB SCH (09:51)
[2024-09-17] MEDS: VANCOMYCIN TROUGH DUE 1 EACH MISC MISCELLANE ONE (09:54)
[2024-09-17 10:37] LABS: Basophils # (A) 0.02 X 10*3/uL (0.00-0.10); Basophils % (A) 0.5 %; Eosinophils # (A) 0.12 X 10*3/uL (0.04-0.35); HCT 34.5 % (37.2-46.3); Lymphocytes # (A) 1.07 X 10*3/uL (0.90-5.00); Lymphocytes % (A) 26.8 %; MCH 29.6 pg (27.0-32.0); MCHC 31.9 g/dL (32.0-37.0); MCV 92.7 FL (80.0-97.0); Mean Platelet Volume 10.7 FL (9.5-12.2); Monocytes # (A) 0.28 X 10*3/uL (0.20-1.00); NRBC Per 100 WBC 0 X 10*3/uL (0.00-0.01); Neutrophils % (A) 62.4 %; Platelet Count 246 X 10*3/uL (140-440); RBC 3.72 X 10*6/uL (4.10-5.20); RDW 14.2 % (11.5-14.5)
[2024-09-17] MEDS: DEXTROSE 5% IN WATER 1,000 ML with POTASSIUM CHLORIDE 40 MEQ IV SCH (11:43)
--- NOTE | 2024-09-17 13:07 | P.PN ---
Subjective Progress Note Date: 09/17/24 Principal diagnosis: Reason for follow-up is UTI and sacral pressure ulcer Patient is a 39-year-old female with multiple comorbidities including fibromyalgia reflux pneumonia seizure disorder patient also have a urostomy and recent multiple admission to the hospital for a UTI patient has been transferred to [facility] from [facility] where patient apparently has been diagnosed with a UTI failing outpatient treatment. On today's evaluation that is 09/17/2024,the patient continues to be afebrile, the patient is breathing comfortably on room air patient is awake but not very good historian no vomiting diarrhea or any other changes reported by the nursing staff PICC team was unable to place a PICC line because of short complaints recommending port placement. Patient white count is 4.0, potassium is 1.9 being addressed by admitting creatinine 0.73 Vanco trough is 20.9 Objective - Vital Signs Vital signs: Vital Signs Temp 97.9 F 09/17/24 07:15 Pulse 81 09/17/24 07:15 Resp 16 09/17/24 07:15 BP 118/82 09/17/24 07:15 Pulse Ox 92 L 09/17/24 07:15 FiO2 Intake & Output 09/16/24 09/17/24 09/17/24 18:59 06:59 18:59 Intake Total 50 500 Output Total 1000 3000 Balance -950 -2500 Intake: Oral 50 500 Output: Urine 1000 3000 Other: # Voids 2 - Exam GENERAL DESCRIPTION: Middle-age female lying in bed in no distress RESPIRATORY SYSTEM: Unlabored breathing , decreased breath sounds at bases HEART: S1 S2 regular rate and rhythm , ABDOMEN: Soft , no tenderness EXTREMITIES: No edema feet - Labs CBC & Chem 7: 09/17/24 06:35 09/17/24 06:35 Labs: Abnormal Lab Results - Last 24 Hours (Table) 09/17/24 Range/Units 06:35 Potassium 1.9 L* (3.5-5.1) mmol/L Carbon Dioxide 34 H (22-30) mmol/L Assessment and Plan (1) History of ESBL E. coli infection Current Visit: Yes Status: Acute Code(s): Z86.19 - PERSONAL HISTORY OF OTHER INFECTIOUS AND PARASITIC DISEASES SNOMED Code(s): 961372940 (2) UTI (urinary tract infection) Current Visit: Yes Status: Acute Code(s): N39.0 - URINARY TRACT INFECTION, SITE NOT SPECIFIED SNOMED Code(s): 04001822 (3) Stage III pressure ulcer of sacral region Current Visit: No Status: Acute Code(s): L89.153 - PRESSURE ULCER OF SACRAL REGION, STAGE 3 SNOMED Code(s): 87869722108780 (4) MRSA (methicillin resistant staph aureus) culture positive Current Visit: Yes Status: Acute Code(s): Z22.322 - CARRIER OR SUSPECTED CARRIER OF METHICILLIN RESIS STAPH SNOMED Code(s): 571372183 Plan: 1patient presented to hospital with mental status changes did have low-grade fever elevated white count and a positive UA concerning for possible urinary source in this patient who did have a urostomy last admission CT did shows evidence of right-sided hydronephrosis could be the etiology for his recurrent infection 2-urine culture has been requested with initial culture currently growing Yumiko repeat is currently pending 3-local wound care to the sacral wound with santyl followed by moist dressing keep the area of the pressure 4-patient sacral wound cultures are growing MRSA and Yumiko glabrata, CT has been suspicious for osteomyelitis patient is covered with the vancomycin and Eraxis,, per the rehabilitation caseworker patient cannot go to the rehab with IV Eraxis because of the cost per discussion with the pharmacist Eraxis has been switched over to voriconazole and the dose of Dilantin has been adjusted per there recommendation 5PICC team was not able to place a PICC port has been recommended has consented for port placement we will get a surgery consult for placement of the port plan is for 6-week course of IV vancomycin dosed by pharmacy trough of 15 Dictation was produced using [employer] dictation software. please excuse any grammatical, word or spelling errors. Time with Patient: Less than 30
[2024-09-17 14:12] LABS: African American GFR (CKD) >90 (>60 ml/min/1.73 sqM); Anion Gap 7 mmol/L; Blood Urea Nitrogen 6 mg/dL (7-17); Calcium 8.5 mg/dL (8.4-10.2); Carbon Dioxide 30 mmol/L (22-30); Chloride 105 mmol/L (98-107); Glucose 72 mg/dL (74-99); Magnesium 1.8 mg/dL (1.6-2.3); Non-African American GFR(CKD) >90 (>60 ml/min/1.73 sqM); Sodium 142 mmol/L (137-145)
[2024-09-17 14:31] LABS: Potassium 2.4 mmol/L (3.5-5.1)
--- NOTE | 2024-09-17 15:28 | P.GSCN ---
History of Present Illness Consult date: 09/17/24 History of present illness: CHIEF COMPLAINT: Sacral ulcer HISTORY OF PRESENT ILLNESS: This is a 39-year-old female who was transferred from [place] to [facility] for IV antibiotics for her UTI and altered mental status. Patient has a sacral decubitus ulcer with concerns of osteomyelitis. She is requiring IV antibiotics and intervention radiology is unable to place PICC line. Surgical service has been consulted for port placement for IV antibiotics and possible debridement of sacral decubitus ulcer. Per nursing staff they have noted improvement in the sacral decubitus ulcer with wound care. Patient with known disability from head trauma and is bedb ound. PAST MEDICAL HISTORY: See below PAST SURGICAL HISTORY: See below MEDICATIONS: See below ALLERGIES: See below SOCIAL HISTORY: No illicit drug use. REVIEW OF SYSTEMS: CONSTITUTIONAL: Denies fever or chills. HEENT: Denies blurred vision, vision changes, or eye pain. Denies hemoptysis CARDIOVASCULAR: Denies chest pain or pressure. RESPIRATORY: No shortness of breath. GASTROINTESTINAL: See HPI for pertinent findings HEMATOLOGIC: Denies bleeding disorders. GENITOURINARY: Denies any blood in urine or increased urinary frequency. SKIN: Denies pruitis. Denies rash. PHYSICAL EXAM: VITAL SIGNS: Reviewed GENERAL: Well-developed in no acute distress. HEENT: No sclera icterus. Extraocular movements grossly intact. Moist buccal mucosa. Head is atraumatic, normocephalic. No nasal drainage. ABDOMEN: Soft. Nondistended. Nontender NEUROLOGIC: Awake and alert SKIN: Sacral decubitus ulcer with healthy pink tissue. There is a darkened area at the 3 o'clock position. Some granulation tissue noted. Some minimal tunneling. Some serous drainage. No foul odor noted. LABORATORY DATA: WBC 4.0 Hgb 11.0 platelets 246 Sodium is 142 potassium 2.4 creatinine 0.65 magnesium 1.8 Culture from buttocks has grown MRSA IMAGING: CT scan sacrum correlate for underlying osteomyelitis ASSESSMENT: 1. Stage III sacral decubitus ulcer with culture growing MRSA 2. Bedbound 3. Hypokalemia 4. Hypomagnesemia PLAN: -Patient scheduled for Port-A-Cath placement for IV antibiotics and possible debridement of sacral decubitus ulcer tomorrow with Dr. Armstrong -N.p.o. after midnight -Continue to correct electrolytes Physician Pipe Organ Installer note has been reviewed by physician. Signing provider agrees with the documented findings, assessment, and plan of care. Past Medical History Past Medical History: Fibromyalgia, GERD/Reflux, Pneumonia, Seizure Disorder Additional Past Medical History / Comment(s): has seizures on a daily basis one or more a day, cHRONIC NECK/BACK PAIN, N/T FINGERS AND TOES, RAYNAUDS SYN. MENIERE'S,tinnitus, past uterine prolpase(sx) IBS, MUSCLE WEAKNESS, USES WALKER OR W/C History of Any Multi-Drug Resistant Organisms: ESBL, MRSA Year Discovered:: 09/10/24 -MRSA; 01/06/24 -ESBL MDRO Source:: MRSA- buttock, urine; ESBL- urine Past Surgical History: Bariatric Surgery, Cholecystectomy, Hysterectomy Additional Past Surgical History / Comment(s): EYE SX (MUSCLES), radha en y 2012 Past Anesthesia/Blood Transfusion Reactions: No Reported Reaction Additional Past Anesthesia/Blood Transfusion Reaction / Comm: clausterphobia Past Psychological History: Anxiety, Depression Smoking Status: Unknown if ever smoked Past Alcohol Use History: Unable to Obtain Past Drug Use History: Unable to Obtain, Marijuana - Past Family History Mother Family Medical History: Cancer Additional Family Medical History / Comment(s): TONGUE Father Family Medical History: Hypertension Medications and Allergies Home Medications Medication Instructions Recorded Confirmed Type QUEtiapine FUMARATE 50 mg PO HS 11/25/19 09/09/24 History Fludrocortisone [Florinef] 0.1 mg PO BID 07/19/21 09/09/24 History Famotidine 40 mg PO HS 01/05/24 09/09/24 History Oxybutynin Chloride [oxyBUTYnin 10 mg PO DAILY 01/05/24 09/09/24 History chloride ER] Pyridoxine [Vitamin B-6] 50 mg PO DAILY 01/05/24 09/09/24 History Thiamine [Vitamin B-1] 100 mg PO DAILY 01/05/24 09/09/24 History Topiramate [Topamax] 50 mg PO TID 01/05/24 09/09/24 History Cranberry/Vitamin C 60mg/250mg 1 tab PO DAILY 08/20/24 09/09/24 History HYDROcodone/APAP 7.5-325MG [[place] 1 tab PO Q6H PRN 08/20/24 09/09/24 History 7.5-325] Lactulose 10 gm PO TID PRN 08/20/24 09/09/24 History Multivit-Min/Iron/Folic/Lutein 1 tab PO DAILY 08/20/24 09/09/24 History [Centrum Silver Women Tablet] Phenytoin Sodium Extended 100 mg PO TID 08/20/24 09/09/24 History [Dilantin] Sodium Bicarbonate Tab 650 mg PO BID 08/20/24 09/09/24 History Venlafaxine HCl [Effexor] 75 mg PO TID 08/20/24 09/09/24 History allopurinoL [Zyloprim] 100 mg PO DAILY 08/20/24 09/09/24 History busPIRone HCl [Buspar] 5 mg PO TID 08/20/24 09/09/24 History Baclofen [Lioresal] 20 mg PO TID 09/09/24 09/09/24 History Gabapentin 1,200 mg PO TID 09/09/24 09/09/24 History Zolpidem Tartrate [Ambien Cr] 12.5 mg PO HS 09/09/24 09/09/24 History Vancomycin HCl in 5 % Dextrose 0.5 gm IV Q12H #40 each 09/16/24 Rx [Vancomycin 1.25 Gram/250Ml-D5w] Voriconazole [Vfend] 200 mg PO Q12HR #28 tablet 09/16/24 Rx Allergies Allergy/AdvReac Type Severity Reaction Status Date / Time levetiracetam [From [facility]] Allergy Rash/Hives Verified 09/09/24 19:45 Penicillins Allergy "STOPPED Verified 09/09/24 19:45 BREATHING" NSAIDS (Non-Steroidal AdvReac "MAY CAUSE Verified 09/09/24 19:45 Anti-Inflamma ULCERS R/T BARIATRIC SX" Surgical - Exam Vital Signs Temp Pulse Resp BP Pulse Ox 97.6 F 117 H 20 121/79 100 09/09/24 18:46 09/09/24 18:46 09/09/24 18:46 09/09/24 18:46 09/09/24 18:46 Results - Labs 09/17/24 06:35 09/17/24 13:08 Abnormal Lab Results - Last 24 Hours (Table) 09/17/24 09/17/24 09/17/24 Range/Units 06:35 06:35 13:08 WBC 4.00 L (4.50-10.00) X 10*3/uL RBC 3.72 L (4.10-5.20) X 10*6/uL Hgb 11.0 L (12.0-15.0) g/dL Hct 34.5 L (37.2-46.3) % MCHC 31.9 L (32.0-37.0) g/dL Potassium 1.9 L* 2.4 L* (3.5-5.1) mmol/L Carbon Dioxide 34 H (22-30) mmol/L BUN 6 L (7-17) mg/dL Glucose 72 L (74-99) mg/dL Diabetes panel 09/17/24 09/17/24 Range/Units 06:35 13:08 Sodium 145 142 (137-145) mmol/L Potassium 1.9 L* 2.4 L* (3.5-5.1) mmol/L Chloride 107 105 (98-107) mmol/L Carbon Dioxide 34 H 30 (22-30) mmol/L BUN 7 6 L (7-17) mg/dL Creatinine 0.73 0.65 (0.52-1.04) mg/dL Glucose 81 72 L (74-99) mg/dL Calcium 8.6 8.5 (8.4-10.2) mg/dL Calcium panel 09/17/24 09/17/24 Range/Units 06:35 13:08 Calcium 8.6 8.5 (8.4-10.2) mg/dL Pituitary panel 09/17/24 09/17/24 Range/Units 06:35 13:08 Sodium 145 142 (137-145) mmol/L Potassium 1.9 L* 2.4 L* (3.5-5.1) mmol/L Chloride 107 105 (98-107) mmol/L Carbon Dioxide 34 H 30 (22-30) mmol/L BUN 7 6 L (7-17) mg/dL Creatinine 0.73 0.65 (0.52-1.04) mg/dL Glucose 81 72 L (74-99) mg/dL Calcium 8.6 8.5 (8.4-10.2) mg/dL Adrenal panel 09/17/24 09/17/24 Range/Units 06:35 13:08 Sodium 145 142 (137-145) mmol/L Potassium 1.9 L* 2.4 L* (3.5-5.1) mmol/L Chloride 107 105 (98-107) mmol/L Carbon Dioxide 34 H 30 (22-30) mmol/L BUN 7 6 L (7-17) mg/dL Creatinine 0.73 0.65 (0.52-1.04) mg/dL Glucose 81 72 L (74-99) mg/dL Calcium 8.6 8.5 (8.4-10.2) mg/dL
[2024-09-17] MEDS: POTASSIUM CHLORIDE ER 20 MEQ TAB.ER PO SCH ×2 (15:59→19:59)
[2024-09-17] MEDS: MAGNESIUM SULFATE-D5W PMX 1 GM in DEXTROSE/WATER 1 100ML.BAG IVPB ONE (15:59)
[2024-09-18 03:48] LABS: Basophils % (A) 0 %; Eosinophils # (A) 0.2 k/uL (0-0.7); Eosinophils % (A) 4 %; HCT 33.3 % (34.0-46.0); HGB 10.8 gm/dL (11.4-16.0); Hypochromasia Slight; Lymphocytes # (A) 1.4 k/uL (1.0-4.8); Lymphocytes % (A) 30 %; MCH 29.6 pg (25.0-35.0); MCHC 32.4 g/dL (31.0-37.0); MCV 91.2 fL (80.0-100.0); Mean Platelet Volume 7.4; Monocytes # (A) 0.3 k/uL (0-1.0); Monocytes % (A) 6 %; Neutrophils # (A) 2.7 k/uL (1.3-7.7); Neutrophils % (A) 58 %; Platelet Count 214 k/uL (150-450); Poikilocytosis Slight; RBC 3.65 m/uL (3.80-5.40); RDW 15.9 % (11.5-15.5); WBC 4.7 k/uL (3.8-10.6)
[2024-09-18 05:33] LABS: African American GFR (CKD) >90 (>60 ml/min/1.73 sqM); Anion Gap 4 mmol/L; Blood Urea Nitrogen 6 mg/dL (7-17); Calcium 8.6 mg/dL (8.4-10.2); Carbon Dioxide 28 mmol/L (22-30); Chloride 109 mmol/L (98-107); Glucose 68 mg/dL (74-99); Magnesium 2.3 mg/dL (1.6-2.3); Non-African American GFR(CKD) >90 (>60 ml/min/1.73 sqM); Potassium 4.2 mmol/L (3.5-5.1); Sodium 141 mmol/L (137-145)
[2024-09-18] MEDS: POTASSIUM CHLORIDE ER 20 MEQ TAB.ER PO SCH (05:37)
--- NOTE | 2024-09-18 09:26 | P.PN ---
Subjective Progress Note Date: 09/17/24 This is a pleasant 39 years old female with past medical history of multiple medical problems as below. She was transferred from [facility] for possible UTI that failed treatment. Patient has history of Warnicke's Korsakoff syndrome and seizures/epilepsy, history of suprapubic catheter which is not present now, neurofibromatosis, Raynaud's disease, legally blind and hearing difficulty, clubfoot and GERD. Patient currently looks confused, she does not know where she is at, she does not remember she came from another hospital or facility, she thinks is 2004 and she does not know the name of the president and she does not know why she is here. Other than then she looks, pleasant and relaxed sitting up in bed. Denies any specific complaint to me. Patient also slow to respond. As per records from [facility] she was recently treated for UTI and altered mental status 08/20-08/24. Then she was in the emergency room for altered mental status where she was treated for 2 days with IV fluid and discharged home to return back in 24 hours not eating and drinking. I called the Mr. Thapa over the phone and he told me she has been sick for about a month super tired sleepy, not eating well, not drinking well not doing anything. He states that she has been treated for 2 infection both of them were UTI. She is also had COVID. Prior to that her mentation was more awake and alert and oriented to the surrounding. As per there is no seizure-like activity. Patient is bedbound and not walking since 2019 where she was diagnosed with multiple vitamin deficiency and [facility] including vitamin B1, B6 and B12 deficiency among others. Also patient has been feeling generalized dizziness. He confirms to me she is full code. Patient is tachycardic with heart rate 116, 135 She had a fever of 99.2. Mildly tachypneic with breathing rate around 20. Labs showing leukocytosis which is worsening were 13,000 at [facility] currently 16.6. Sodium is elevated at 149, liver enzymes mildly elevated. INR is unremarkable, troponin is negative. Urine analysis suspicious for infection EKG showing sinus tachycardia at 133. CT of the brain done at [facility] showing no acute process per report. Patient currently on meropenem and normal saline 130 mL/h. Will resume her home medication but we lowered Seroquel from 50 down to 25 and we held her Ambien of 12.5 mg. 09/11 Patient remains confused to time place person. She looks relaxed not in distress, she can follow simple commands, for example when I ask her where the UTI area she points to her urinary bladder. She can tell the name of her Mr. Thapa. She denies headache dizziness weakness or numbness. No abdominal pain. Patient looks lethargic. No abdominal pain. Her right upper quadrant urostomy is in place. Leukocytosis improving yesterday down to 12,000, sodium normalized. Liver e nzymes mildly elevated. Patient currently kept on meropenem. No IV fluid Neurology evaluated the patient and tapering off her Topamax. Dilantin discontinued. Level was less than 3.0. 09/12 Patient today is much better, she knows she is in [place] although she did not know in the hospital. She knew the year 2024 and August. She she know the name of the president. She knows why she has been admitted to the hospital stating she has infection but she thinks it is in the vagina. We explained to the patient it is her UTI. Patient however denies any vaginal symptom no discharge or itching or pain as she explains. No other new complaint. Her leukocytosis significantly improved from 12 down to 4.1, hemoglobin slightly low from 12 down to 10.5 with some elements of hemodilution. Her normal saline was discontinued She remains on meropenem, fluconazole was added because of urine culture showing Yumiko tropicalis. Neurology also following closely with the plan to stop Topamax. 09/13 Patient mentation improving slowly and gradually Neurologist evaluated the patient and tapering off her Topamax while keeping Dilantin and they recommended Vimpat only if she hasmore seizure, however she did not have any seizure today She has a history of ESBL UTI and she finished course of meropenem. Cultures growing Yumiko and currently fluconazole She has evidence of stage III sacral pressure ulcer Also looks infected with culture growing MRSA and patient was placed on IV vancomycin by ID team 09/14 Patient today mentation significantly better, she is up in bed She is on IV vancomycin and fluconazole for MRSA and Yumiko in the culture No breathing problem no chest pain but she is complaining from worse with eating. Patient continues on Protonix, will increase the frequency to twice daily 09/15 Patient seen and examined by me at bedside. Patient mentation improved after stopping her sedatives and treating her wound infection with IV vancomycin. CT sacrum showing possible underlying sacral osteomyelitis. ESR is 7 However patient since yesterday is developing epigastric pain and tenderness which prevent her from eating, therefore we do not to consult surgical team for further evaluation. Also patient currently on IV Protonix. 09/16/2024 Patient is seen in follow-up today with infectious disease following and is continued with local wound care and will require a PICC line on discharge for IV antibiotic therapy. Patient will be going to [facility] on discharge and requires insurance authorization which is currently pending. Patient to continue with local wound care of the sacral region with frequent offloading. General surgery was consulted for abdominal pain which has resolved and will continue patient on current bowel regimen. Patient is afebrile with no reports of chest pain or shortness of breath. 09/17/2024 Patient is seen in follow-up today continues on antibiotics and tentatively was scheduled for PICC line although they feel they are unable to place it because her veins are very frail and tiny and at risk for infiltrating very easily and this was discussed with infectious disease and will consult general surgery and appreciate input and recommendations regarding possible port placement as patient will require prolonged antibiotics and likely outpatient for quite some time as well. Patient's potassium is extremely low at 1.9 and will be replaced per protocol and will follow-up with serial lab draws to monitor improvements. Continue with protocol and will add daily supplements as well. Patient is afebrile with no reports of chest pain or shortness of breath. Patient will be going to [facility] once cleared by consultations. Patient will require insurance authorization which remains pending at this time. Review of systems: Constitutional: No reports of fatigue, fever, or chills Cardiovascular: No reports of chest pain or palpitations Respiratory: No reports of shortness of breath or cough GI: No reports of nausea, vomiting, or diarrhea : No reports of dysuria or retention Neurovascular: reports of weakness, patient reports bedbound All medications have been reviewed Physical exam: Gen: This is a 39-year-old female who is awake, alert and oriented x 2, baseline, confused, appears older than stated age, ill-appearing HEENT: Head is atraumatic, normocephalic. Pupils equal, round. Sclerae is anicteric. NECK: Supple. No JVD. No lymphadenopathy. No thyromegaly. LUNGS: Diminished breath sounds bilaterally otherwise clear to auscultation. No wheezes or rhonchi. No intercostal retractions. HEART: S1, S2 are muffled ABDOMEN: Soft. Bowel sounds are present. No masses. No tenderness. EXTREMITIES: No pedal edema. No calf tenderness. NEUROLOGICAL: Patient is awake, alert and oriented x to. Diffusely weak Assessment: Altered mental status most likely toxic/metabolic encephalopathy. Improved at baseline Infected Stage III pressure ulcer of the right buttock area with culture growing MRSA, . Sacral CT showing possible underlying osteomyelitis Acute urinary tract infection, recurrent likely related to urostomy in the right upper quadrant. Culture growing Yumiko which was likely the source of infection. Epigastric pain and tenderness, resolved Severe hypokalemia, possibly secondary to poor oral intake, 1.9 and being replaced sepsis, present on admission secondary to stage III pressure ulcer along with UTI with tachycardia tachypnea and fever and leukocytosis, improved Hypernatremia, resolved History of seizure disorder History of hysterectomy, gastric bypass procedure and urostomy Drug allergy to penicillin causing anaphylaxis History of Warnicke's Korsakoff syndrome History of small bowel obstruction and fecal impaction Debility and mostly bedbound History of peptic ulcer disease Neurofibromatosis Drains disease Legally blind Hearing difficulty History of GERD Moderate calorie protein malnutrition with a BMI of 18.4 GI prophylaxis DVT prophylaxis Full code Plan: Patient being followed by infectious disease initially recommending PICC line for outpatient IV antibiotics although PICC team is unable to place given her poor vasculature and would likely infiltrate quickly. General surgery consulted for possible Mediport placement as well as evaluation of stage III sacral ulcer if debridement is needed. Patient will require prolonged IV antibiotics outpatient. Potassium significantly low at 1.8 today and being replaced and follow-up is 2.7 we will continue replacement and follow-up on repeat labs throughout the evening to monitor potassium levels. Patient will be n.p.o. at midnight and tentatively scheduled for Mediport placement on 09/18/2024 Continue with m Diflucan, and iv vancomycin as per ID team. Patient will require a PICC line for discharge and will order as patient will be going to [facility] Continue with wound care Neurology service on the case and they recommend to taper off Topamax will continue on Dilantin Case management following and has submitted for insurance authorization and has been accepted at [facility] pending Auth Due to multiple complex medical issues, overall prognosis is guarded Possible discharge planning in the next 24 to 48 hours after port placement The impression and plan of care has been dictated by Sera Cottrell, Nurse Practitioner as directed. Dr. Asim MD I have performed a history and examination and MDM of this patient, discussed the same with the dictator, and agree with the dictator's assessment and plan as written ,documented as a scribe. Based on total visit time, I have performed more than 50% of the visit. Objective - Vital Signs Vital signs: Vital Signs Temp 97.9 F 09/17/24 00:45 Pulse 59 L 09/17/24 00:45 Resp 18 09/17/24 00:45 BP 112/68 09/17/24 00:45 Pulse Ox 98 09/17/24 00:45 FiO2 Intake & Output 09/16/24 09/17/24 09/17/24 18:59 06:59 18:59 Intake Total 50 500 Output Total 1000 3000 Balance -950 -2500 Intake: Oral 50 500 Output: Urine 1000 3000 Other: # Voids 2 - Labs CBC & Chem 7: 09/18/24 03:13 09/18/24 03:08 Labs: Abnormal Lab Results - Last 24 Hours (Table) 09/17/24 Range/Units 06:35 Potassium 1.9 L* (3.5-5.1) mmol/L Carbon Dioxide 34 H (22-30) mmol/L
[2024-09-18 10:36] LABS: Glucose,Whole Blood 73 mg/dL (70-110)
[2024-09-18] MEDS: IV FLUID CONTINUATION 1,000 ML IV ONE (11:54)
[2024-09-18] MEDS: HEPARIN SODIUM,PORCINE 5,000 UNIT/ML 1 ML VIAL SQ STA (12:09)
--- NOTE | 2024-09-18 12:48 | P.PN ---
Subjective Progress Note Date: 09/17/24 09/17/2024: Patient was seen for a follow-up. Patient is sleeping at this time. Per nursing report, patient is continues to be confused, hearing voices, thinks her and children are there although they are not. No seizures witnessed by the nursing staff. 09/16/2024: Patient was initially seen by Dr. Robi Morris. Please refer to his note for details. Patient is a 39-year-old female with history of seizure disorder and multiple other medical conditions, was brought to the hospital from facility because of need for IV antibiotics for UTI. Patient was seen for a follow-up. Patient denies headache. She admits to having dizziness when she sits up. Patient admits to having some seizure-like episodes in the hospital as well. I spoke to patient's nurse, who states that patient reports of having some seizures although no one has witnessed seizures in the hospital. She herself, or the night nurse have not witnessed any seizures. She still is very confused, thinking that her and kids have visited her although they have not. Objective - Vital Signs Vital signs: Vital Signs Temp 98.4 F 09/17/24 13:56 Pulse 79 09/17/24 13:56 Resp 16 09/17/24 13:56 BP 131/90 09/17/24 13:56 Pulse Ox 91 L 09/17/24 13:56 FiO2 Intake & Output 09/17/24 09/17/24 09/18/24 06:59 18:59 06:59 Intake Total 500 Output Total 3000 2550 Balance -2500 -2550 Weight 38.555 kg Intake: Oral 500 Output: Urine 3000 2550 Other: # Voids 2 - Exam On examination patient is a young female, appears very malnutrition, cachectic appearing female. Patient has good planer mill grader, biceps, triceps but patient has bilateral footdrop. She has heel cord shortening bilaterally. Patient is nonambulatory. Patient has overall reduced muscle mass. - Labs CBC & Chem 7: 09/18/24 03:13 09/18/24 03:08 Labs: Abnormal Lab Results - Last 24 Hours (Table) 09/17/24 09/17/24 09/17/24 Range/Units 06:35 06:35 13:08 WBC 4.00 L (4.50-10.00) X 10*3/uL RBC 3.72 L (4.10-5.20) X 10*6/uL Hgb 11.0 L (12.0-15.0) g/dL Hct 34.5 L (37.2-46.3) % MCHC 31.9 L (32.0-37.0) g/dL Potassium 1.9 L* 2.4 L* (3.5-5.1) mmol/L Carbon Dioxide 34 H (22-30) mmol/L BUN 6 L (7-17) mg/dL Glucose 72 L (74-99) mg/dL 09/17/24 Range/Units 18:10 WBC (4.50-10.00) X 10*3/uL RBC (4.10-5.20) X 10*6/uL Hgb (12.0-15.0) g/dL Hct (37.2-46.3) % MCHC (32.0-37.0) g/dL Potassium 2.7 L* (3.5-5.1) mmol/L Carbon Dioxide (22-30) mmol/L BUN (7-17) mg/dL Glucose (74-99) mg/dL Assessment and Plan Assessment: This is a 39-year-old woman with history of epilepsy, Warnicke encephalopathy, recurrent urinary tract infection who was transferred from [facility] for escalation of care of her urinary tract infection since she failed her outpatient treatment and needed IV antibiotic. Patient was in our facility a few weeks ago and had extensive neurologic workup and had CSF study which was unremarkable for any underlying infection as well as an EEG which was normal. Altered mental status seems due to septic encephalopathy from her urosepsis--currently she was responding to questions correctly and following simple commands. Acute urinary tract infection History of epilepsy on Dilantin History of Wernicke encephalopathy History of Mnire's disease History of Raynaud's disease History of recent COVID-19 infection History of chronic indwelling suprapubic catheter Wheelchair-bound History of recurrent urinary tract infection History of GERD History of anxiety History of depression Plan: Patient phenytoin 100 mg, 3 times daily is resumed. It seems per our last note her outpatient neurologist Dr. Jo has stopped Topamax and placed her on Dila ntin. Topamax can decrease appetite and make weight loss further worse. Patient is off Topamax. If has further seizure, recommend adding Vimpat 50mg bid. Repeat Dilantin level is therapeutic 12.9. Continue Dilantin 100 mg 3 times a day. Seizure precautions seizure pads Recommend the patient to follow-up with her outpatient neurologist within 3 weeks Will defer the rest of the medical management to the primary team. Patient has hypokalemia 1.9, being treated. Neurologically clear, when medically cleared.
[2024-09-18] MEDS ORDERED: PHENYLEPHRINE 10 MG/ML VIAL ONE (12:59)
[2024-09-18] MEDS ORDERED: ROCURONIUM 10 MG/ML (5 ML VIAL) IV ONE (12:59)
[2024-09-18] MEDS ORDERED: LIDOCAINE 1% INJ 10MG/ML (20 ML MDV) ONE (12:59)
[2024-09-18] MEDS ORDERED: GLYCOPYRROLATE 0.2 MG/ML 2 ML VIAL ONE (12:59)
[2024-09-18] MEDS ORDERED: NEOSTIGMINE 1 MG/ML 10 ML VIAL ONE (12:59)
[2024-09-18] MEDS ORDERED: fentaNYL (PF) 50 MCG/ML 2 ML AMP ONE (12:59)
[2024-09-18] MEDS ORDERED: PROPOFOL 10 MG/ML 20 ML VIAL IV ONE (12:59)
[2024-09-18] MEDS: SODIUM CHLORIDE 0.9% 50 ML with ceFAZolin 1,000 MG IV ONE (13:30)
[2024-09-18] MEDS: BUPIVACAINE (PF) 0.25% 30 ML VIAL SQ ONE (13:47)
--- NOTE | 2024-09-18 14:14 | P.OP ---
Date of Procedure: 09/18/24 Procedure(s) Performed: PREOPERATIVE DIAGNOSIS: Osteomyelitis, sacral wound POSTOPERATIVE DIAGNOSIS: Same PROCEDURE: Port-A-Cath placement with fluoroscopic and ultrasound guidance, debridement sacral wound SURGEON: Patti EBL: 5 cc ANESTHESIA: General COMPLICATIONS: None OPERATIVE PROCEDURE: Patient was brought and placed on the operative table in the supine position. The patient was placed under general anesthesia at that time. The chest and neck were prepped and draped in usual sterile fashion. The ultrasound probe was used to identify the location of the right internal jugular vein. The skin was localized with lidocaine. The Seldinger needle was advanced into the IJ under ultrasound guidance. The wire was advanced through the needle under fluoroscopic guidance into the superior vena cava. A port pocket was created in the right infraclavicular location. The catheter was tunneled from t he wire entrance site to the port pocket. The port was then connected to the catheter. The dilator introducer was threaded over the guidewire. The guidewire and dilator were then removed. The catheter was advanced through the introducer and introducer was then removed. The tip was seen to be in the right atrial junction via fluoroscopy. A picture of the radiograph showing the tip of the catheter was taken. Port was flushed with both saline and a Hep-Lock solution. There was good flow both in and out of the port. The port was sutured in underlying tissues using 3-0 silk sutures. The subcutaneous tissues were reapproximated using 3-0 Vicryl sutures and the skin at both locations using 4-0 Monocryl sutures. Skin glue and sterile dressings then applied. The patient was then placed in the left cubitus position. The sacral dressing was removed. The sacral wound measured 6 x 6 x 2 cm. There is a small amount of necrotic debris in the right lateral location which was debrided sharply using a curette. Area of debridement 3 x 3 cm. Small areas of bleeding were controlled with direct pressure. Sterile dressing reapplied. DISPOSITION: Stable to recovery room
--- NOTE | 2024-09-18 15:23 | XR ---
EXAMINATION TYPE: XR chest 1V confirm line [facility] DATE OF EXAM: 09/18/2024 COMPARISON: 08/20/2024 CLINICAL INDICATION: Female, 39 years old with history of Check Line placement; TECHNIQUE: Single frontal view of the chest is obtained. FINDINGS: Right anterior chest wall injection port with catheter tip at the cavoatrial junction. Hea rt normal size. Aorta and pulmonary vasculature within normal limits. No consolidation or pleural eff usion. Dextroconvex scoliosis midthoracic spine. IMPRESSION: 1. Placement of right anterior chest wall injection port with catheter tip at the cavoatrial junction . 2. No acute cardiopulmonary process. 3. Dextroconvex scoliosis midthoracic spine. [facility], , 09/18/2024 3:21 PM
--- NOTE | 2024-09-18 15:37 | FL ---
EXAMINATION TYPE: FL guided central line placemt DATE OF EXAM: 09/18/2024 3:30 PM COMPARISON: Pre Operative Images if available both CT/MRI or plain film CLINICAL INDICATION: Female, 39 years old with history of PORT-A-CATH INSERTION; TECHNIQUE: FL guided central line placemt, multiple fluoroscopic images provided for procedure. DAP: 0.44638 mGym2 Gycm2 uGym2 cGycm2 or equivalent. FINDINGS: Fluoroscopic imaging for Port-A-Cath insertion no evidence for pneumothorax. Multilevel degeneration changes of the spine. IMPRESSION: 1. No evidence for intraoperative complication. 2. Please see the operative/procedural note for further details. [facility], , 09/18/2024 3:34 PM
[2024-09-18] MEDS: ONDANSETRON 4 MG/2 ML VIAL IVP STA (15:52)
--- NOTE | 2024-09-18 23:12 | P.PN ---
Subjective Progress Note Date: 09/18/24 This is a pleasant 39 years old female with past medical history of multiple medical problems as below. She was transferred from [facility] for possible UTI that failed treatment. Patient has history of Warnicke's Korsakoff syndrome and seizures/epilepsy, history of suprapubic catheter which is not present now, neurofibromatosis, Raynaud's disease, legally blind and hearing difficulty, clubfoot and GERD. Patient currently looks confused, she does not know where she is at, she does not remember she came from another hospital or facility, she thinks is 2004 and she does not know the name of the president and she does not know why she is here. Other than then she looks, pleasant and relaxed sitting up in bed. Denies any specific complaint to me. Patient also slow to respond. As per records from [facility] she was recently treated for UTI and altered mental status 08/20-08/24. Then she was in the emergency room for altered mental status where she was treated for 2 days with IV fluid and discharged home to return back in 24 hours not eating and drinking. I called the Mr. Thapa over the phone and he told me she has been sick for about a month super tired sleepy, not eating well, not drinking well not doing anything. He states that she has been treated for 2 infection both of them were UTI. She is also had COVID. Prior to that her mentation was more awake and alert and oriented to the surrounding. As per there is no seizure-like activity. Patient is bedbound and not walking since 2019 where she was diagnosed with multiple vitamin deficiency and [facility] including vitamin B1, B6 and B12 deficiency among others. Also patient has been feeling generalized dizziness. He confirms to me she is full code. Patient is tachycardic with heart rate 116, 135 She had a fever of 99.2. Mildly tachypneic with breathing rate around 20. Labs showing leukocytosis which is worsening were 13,000 at [facility] currently 16.6. Sodium is elevated at 149, liver enzymes mildly elevated. INR is unremarkable, troponin is negative. Urine analysis suspicious for infection EKG showing sinus tachycardia at 133. CT of the brain done at [facility] showing no acute process per report. Patient currently on meropenem and normal saline 130 mL/h. Will resume her home medication but we lowered Seroquel from 50 down to 25 and we held her Ambien of 12.5 mg. 09/11 Patient remains confused to time place person. She looks relaxed not in distress, she can follow simple commands, for example when I ask her where the UTI area she points to her urinary bladder. She can tell the name of her Mr. Thapa. She denies headache dizziness weakness or numbness. No abdominal pain. Patient looks lethargic. No abdominal pain. Her right upper quadrant urostomy is in place. Leukocytosis improving yesterday down to 12,000, sodium normalized. Liver e nzymes mildly elevated. Patient currently kept on meropenem. No IV fluid Neurology evaluated the patient and tapering off her Topamax. Dilantin discontinued. Level was less than 3.0. 09/12 Patient today is much better, she knows she is in [place] although she did not know in the hospital. She knew the year 2024 and August. She she know the name of the president. She knows why she has been admitted to the hospital stating she has infection but she thinks it is in the vagina. We explained to the patient it is her UTI. Patient however denies any vaginal symptom no discharge or itching or pain as she explains. No other new complaint. Her leukocytosis significantly improved from 12 down to 4.1, hemoglobin slightly low from 12 down to 10.5 with some elements of hemodilution. Her normal saline was discontinued She remains on meropenem, fluconazole was added because of urine culture showing Yumiko tropicalis. Neurology also following closely with the plan to stop Topamax. 09/13 Patient mentation improving slowly and gradually Neurologist evaluated the patient and tapering off her Topamax while keeping Dilantin and they recommended Vimpat only if she hasmore seizure, however she did not have any seizure today She has a history of ESBL UTI and she finished course of meropenem. Cultures growing Yumiko and currently fluconazole She has evidence of stage III sacral pressure ulcer Also looks infected with culture growing MRSA and patient was placed on IV vancomycin by ID team 09/14 Patient today mentation significantly better, she is up in bed She is on IV vancomycin and fluconazole for MRSA and Yumiko in the culture No breathing problem no chest pain but she is complaining from worse with eating. Patient continues on Protonix, will increase the frequency to twice daily 09/15 Patient seen and examined by me at bedside. Patient mentation improved after stopping her sedatives and treating her wound infection with IV vancomycin. CT sacrum showing possible underlying sacral osteomyelitis. ESR is 7 However patient since yesterday is developing epigastric pain and tenderness which prevent her from eating, therefore we do not to consult surgical team for further evaluation. Also patient currently on IV Protonix. 09/16/2024 Patient is seen in follow-up today with infectious disease following and is continued with local wound care and will require a PICC line on discharge for IV antibiotic therapy. Patient will be going to [facility] on discharge and requires insurance authorization which is currently pending. Patient to continue with local wound care of the sacral region with frequent offloading. General surgery was consulted for abdominal pain which has resolved and will continue patient on current bowel regimen. Patient is afebrile with no reports of chest pain or shortness of breath. 09/17/2024 Patient is seen in follow-up today continues on antibiotics and tentatively was scheduled for PICC line although they feel they are unable to place it because her veins are very frail and tiny and at risk for infiltrating very easily and this was discussed with infectious disease and will consult general surgery and appreciate input and recommendations regarding possible port placement as patient will require prolonged antibiotics and likely outpatient for quite some time as well. Patient's potassium is extremely low at 1.9 and will be replaced per protocol and will follow-up with serial lab draws to monitor improvements. Continue with protocol and will add daily supplements as well. Patient is afebrile with no reports of chest pain or shortness of breath. Patient will be going to [facility] once cleared by consultations. Patient will require insurance authorization which remains pending at this time. 09/18/2024 Patient is seen in follow-up today currently n.p.o. and scheduled to undergo Mediport placement along with debridement of the sacral ulcer with general surgery. Patient's potassium improved post replacement and currently 4.2 today. Continue with daily supplement and also encouraged oral intake once cleared by surgery post intervention today. Plan will be for continued IV antibiotics in the outpatient setting per ID recommendations. Case management is following currently insurance authorization remains pending for [facility]. Will discuss further with consultations regarding discharge planning possibly in the next 24 to 48 hours. Patient is afebrile with no reported chest pain or shortness of breath. Review of systems: Constitutional: No reports of fatigue, fever, or chills Cardiovascular: No reports of chest pain or palpitations Respiratory: No reports of shortness of breath or cough GI: No reports of nausea, vomiting, or diarrhea : No reports of dysuria or retention Neurovascular: reports of weakness, patient reports bedbound All medications have been reviewed Physical exam: Gen: This is a 39-year-old female who is awake, alert and oriented x 2, base line, confused, appears older than stated age, ill-appearing HEENT: Head is atraumatic, normocephalic. Pupils equal, round. Sclerae is anicteric. NECK: Supple. No JVD. No lymphadenopathy. No thyromegaly. LUNGS: Diminished breath sounds bilaterally otherwise clear to auscultation. No wheezes or rhonchi. No intercostal retractions. HEART: S1, S2 are muffled ABDOMEN: Soft. Bowel sounds are present. No masses. No tenderness. EXTREMITIES: No pedal edema. No calf tenderness. NEUROLOGICAL: Patient is awake, alert and oriented x to. Diffusely weak Assessment: Altered mental status most likely toxic/metabolic encephalopathy. Improved at baseline Infected Stage III pressure ulcer of the right buttock area with culture growing MRSA, . Sacral CT showing possible underlying osteomyelitis, status postsurgical debridement on 09/18/2024 Acute urinary tract infection, recurrent likely related to urostomy in the right upper quadrant. Culture growing Yumiko which was likely the source of infection. Epigastric pain and tenderness, resolved Severe hypokalemia, possibly secondary to poor oral intake, replaced and improved and was 1.9, currently 4.2 sepsis, present on admission secondary to stage III pressure ulcer along with UTI with tachycardia tachypnea and fever and leukocytosis, improved Hypernatremia, resolved History of seizure disorder History of hysterectomy, gastric bypass procedure and urostomy Drug allergy to penicillin causing anaphylaxis History of Warnicke's Korsakoff syndrome History of small bowel obstruction and fecal impaction Debility and mostly bedbound History of peptic ulcer disease Neurofibromatosis Drains disease Legally blind Hearing difficulty History of GERD Moderate calorie protein malnutrition with a BMI of 18.4 GI prophylaxis DVT prophylaxis Full code Plan: Patient being followed by infectious disease initially recommending PICC line for outpatient IV antibiotics although PICC team is unable to place given her poor vasculature and would likely infiltrate quickly. General surgery following and patient is status post Mediport placement along with debridement of stage III sacral ulcer today for 09/04/2024. Potassium improved status post replacement and will continue daily supplement Encouraged oral intake once cleared by surgery to resume diet Continue with m Diflucan, and iv vancomycin as per ID team. Will discuss further with infectious disease regarding discharge planning Continue with wound care Neurology service on the case and they recommend to taper off Topamax will continue on Dilantin Case management following and has submitted for insurance authorization and has been accepted at [facility] and authorization remains pending Due to multiple complex medical issues, overall prognosis is guarded Possible discharge planning in the next 24 to 48 hours after port placement The impression and plan of care has been dictated by Sera Cottrell, Nurse Practitioner as directed. Dr. Asim MD I have performed a history and examination and MDM of this patient, discussed the same with the dictator, and agree with the dictator's assessment and plan as written ,documented as a scribe. Based on total visit time, I have performed more than 50% of the visit. Objective - Vital Signs Vital signs: Vital Signs Temp 97.8 F 09/18/24 07:10 Pulse 72 09/18/24 07:10 Resp 17 09/18/24 07:10 BP 106/79 09/18/24 07:10 Pulse Ox 95 09/18/24 07:10 FiO2 Intake & Output 09/17/24 09/18/24 09/18/24 18:59 06:59 18:59 Intake Total 1000 Output Total 2550 800 Balance -2550 200 Weight 38.555 kg Intake: Oral 1000 Output: Urine 2550 800 Stool 0 - Labs CBC & Chem 7: 09/18/24 03:13 09/18/24 03:08 Labs: Abnormal Lab Results - Last 24 Hours (Table) 09/17/24 09/17/24 09/17/24 Range/Units 06:35 13:08 18:10 WBC 4.00 L (4.50-10.00) X 10*3/uL RBC 3.72 L (4.10-5.20) X 10*6/uL Hgb 11.0 L (12.0-15.0) g/dL Hct 34.5 L (37.2-46.3) % MCHC 31.9 L (32.0-37.0) g/dL RDW (11.5-15.5) % Potassium 2.4 L* 2.7 L* (3.5-5.1) mmol/L Chloride (98-107) mmol/L BUN 6 L (7-17) mg/dL Glucose 72 L (74-99) mg/dL 09/18/24 09/18/24 Range/Units 03:08 03:13 WBC (4.50-10.00) X 10*3/uL RBC 3.65 L (4.10-5.20) X 10*6/uL Hgb 10.8 L (12.0-15.0) g/dL Hct 33.3 L (37.2-46.3) % MCHC (32.0-37.0) g/dL RDW 15.9 H (11.5-15.5) % Potassium (3.5-5.1) mmol/L Chloride 109 H (98-107) mmol/L BUN 6 L (7-17) mg/dL Glucose 68 L (74-99) mg/dL
[2024-09-19 06:29] LABS: African American GFR (CKD) >90 (>60 ml/min/1.73 sqM); Non-African American GFR(CKD) >90 (>60 ml/min/1.73 sqM)
[2024-09-19] MEDS ORDERED: VANCOMYCIN TROUGH DUE 1 EACH MISC MISCELLANE ONE (08:00)
--- NOTE | 2024-09-19 11:35 | P.PN ---
Subjective Progress Note Date: 09/18/24 Principal diagnosis: Reason for follow-up is UTI and sacral pressure ulcer Patient is a 39-year-old female with multiple comorbidities including fibromyalgia reflux pneumonia seizure disorder patient also have a urostomy and recent multiple admission to the hospital for a UTI patient has been transferred to [facility] from [facility] where patient apparently has been diagnosed with a UTI failing outpatient treatment. Patient is status post Port-A-Cath placement and debridement of the sacral wound by general surgery on 09/18/2024. On today's evaluation that is 09/18/2024,the patient remains to be afebrile, patient is on 2 L nasal cannula supplemental oxygen and breathing comfortably no other changes reported by the nursing staff. Patient white count is 4.7, creatinine 0.62 Objective - Vital Signs Vital signs: Vital Signs Temp 97.8 F 09/18/24 07:10 Pulse 72 09/18/24 07:10 Resp 17 09/18/24 07:10 BP 106/79 09/18/24 07:10 Pulse Ox 95 09/18/24 07:10 FiO2 Intake & Output 09/17/24 09/18/24 09/18/24 18:59 06:59 18:59 Intake Total 1000 Output Total 2550 800 100 Balance -2550 200 -100 Weight 38.555 kg Intake: Oral 1000 Output: Urine 2550 800 100 Stool 0 - Exam GENERAL DESCRIPTION: Middle-age female lying in bed in no distress RESPIRATORY SYSTEM: Unlabored breathing , decreased breath sounds at bases HEART: S1 S2 regular rate and rhythm , ABDOMEN: Soft , no tenderness EXTREMITIES: No edema feet - Labs CBC & Chem 7: 09/18/24 03:13 09/18/24 03:08 Labs: Abnormal Lab Results - Last 24 Hours (Table) 09/17/24 09/17/24 09/18/24 Range/Units 13:08 18:10 03:08 RBC (3.80-5.40) m/uL Hgb (11.4-16.0) gm/dL Hct (34.0-46.0) % RDW (11.5-15.5) % Potassium 2.4 L* 2.7 L* (3.5-5.1) mmol/L Chloride 109 H (98-107) mmol/L BUN 6 L 6 L (7-17) mg/dL Glucose 72 L 68 L (74-99) mg/dL 09/18/24 Range/Units 03:13 RBC 3.65 L (3.80-5.40) m/uL Hgb 10.8 L (11.4-16.0) gm/dL Hct 33.3 L (34.0-46.0) % RDW 15.9 H (11.5-15.5) % Potassium (3.5-5.1) mmol/L Chloride (98-107) mmol/L BUN (7-17) mg/dL Glucose (74-99) mg/dL Assessment and Plan (1) History of ESBL E. coli infection Current Visit: Yes Status: Acute Code(s): Z86.19 - PERSONAL HISTORY OF OTHER INFECTIOUS AND PARASITIC DISEASES SNOMED Code(s): 886716374 (2) UTI (urinary tract infection) Current Visit: Yes Status: Acute Code(s): N39.0 - URINARY TRACT INFECTION, SITE NOT SPECIFIED SNOMED Code(s): 17322248 (3) Stage III pressure ulcer of sacral region Current Visit: No Status: Acute Code(s): L89.153 - PRESSURE ULCER OF SACRAL REGION, STAGE 3 SNOMED Code(s): 74930962022820 (4) MRSA (methicillin resistant staph aureus) culture positive Current Visit: Yes Status: Acute Code(s): Z22.322 - CARRIER OR SUSPECTED CARRIER OF METHICILLIN RESIS STAPH SNOMED Code(s): 788698318 Plan: 1patient presented to hospital with mental status changes did have low-grade fever elevated white count and a positive UA concerning for possible urinary source in this patient who did have a urostomy last admission CT did shows evidence of right-sided hydronephrosis could be the etiology for his recurrent infection 2-urine culture has been requested with initial culture currently growing Yumiko repeat is currently pending 3-local wound care to the sacral wound with santyl followed by moist dressing keep the area of the pressure 4-patient sacral wound cultures are growing MRSA and Yumiko glabrata, CT has been suspicious for osteomyelitis patient is covered with the vancomycin and Eraxis, 5status post Port-A-Cath placement by surgery debridement of the wound plan will be for 6-week course of vancomycin pharmacy to dose and 2-week course of oral voriconazole on discharge Dictation was produced using zhouwu dictation software. please excuse any grammatical, word or spelling errors. Time with Patient: Less than 30
--- NOTE | 2024-09-19 11:52 | P.PN ---
Subjective Progress Note Date: 09/19/24 SURGICAL PROGRESS NOTE CHIEF COMPLAINT: Sacral decubitus ulcer HISTORY OF PRESENT ILLNESS: Patient is status postop day #1 status post Port-A-Cath placement and debridement of sacral decubitus ulcer. Patient is sitting up in bed comfortably. Patient is a little lethargic after receiving morphine. Afebrile. WBC 4.7 yesterday PHYSICAL EXAM: VITAL SIGNS: Reviewed. GENERAL: Well-developed in no acute distress. CHEST: Right chest wall Port-A-Cath site site clean dry and intact ABDOMEN: Soft. Nondistended. Nontender. NEUROLOGIC: Awake. Mildly lethargic ASSESSMENT: 1. Sacral decubitus ulcer 2. Status post Port-A-Cath placement for IV antibiotics PLAN: - Antibiotics per ID service - Continue local wound care Physician Md Pediatric Allergist note has been reviewed by physician. Signing provider agrees with the documented findings, assessment, and plan of care. I have personally seen and examined the patient, reviewed the BPM ARCHITECT /PAs history, exam and MDM and agree with the assessment and plan as written. Based on total visit time, I have performed more than 50% of the visit. As above: Patient doing well today. Dressing clean and dry. No tenderness. Wound is clean. May remove Port-A-Cath dressing in the next 24 to 48 hours. Will sign off. Please reconsult if needed. Objective - Vital Signs Vital signs: Vital Signs Temp 97.6 F 09/19/24 06:52 Pulse 61 09/19/24 06:52 Resp 17 09/19/24 06:52 BP 105/70 09/19/24 06:52 Pulse Ox 95 09/19/24 06:52 FiO2 Intake & Output 09/18/24 09/19/24 09/19/24 18:59 06:59 18:59 Intake Total 350 200 Output Total 105 600 Balance 245 -400 Weight 38.555 kg Intake: IV 350 Oral 200 Output: Urine 100 600 Estimated Blood Loss 5 - Labs CBC & Chem 7: 09/18/24 03:13 09/19/24 05:50
--- NOTE | 2024-09-19 15:58 | P.PN ---
Subjective Progress Note Date: 09/19/24 Principal diagnosis: Reason for follow-up is UTI and sacral pressure ulcer Patient is a 39-year-old female with multiple comorbidities including fibromyalgia reflux pneumonia seizure disorder patient also have a urostomy and recent multiple admission to the hospital for a UTI patient has been transferred to [facility] from [facility] where patient apparently has been diagnosed with a UTI failing outpatient treatment. Patient is status post Port-A-Cath placement and debridement of the sacral wound by general surgery on 09/18/2024. On today's evaluation that is 09/19/2024, the patient continues to be afebrile, the patient is on room air and breathing comfortably, the Pt sleepy but arousable not a very good historian no other changes reported by the nursing staff. Patient did have a creatinine 0.68 Objective - Vital Signs Vital signs: Vital Signs Temp 97.6 F 09/19/24 06:52 Pulse 61 09/19/24 06:52 Resp 17 09/19/24 06:52 BP 105/70 09/19/24 06:52 Pulse Ox 95 09/19/24 06:52 FiO2 Intake & Output 09/18/24 09/19/24 09/19/24 18:59 06:59 18:59 Intake Total 350 200 Output Total 105 600 Balance 245 -400 Weight 38.555 kg Intake: IV 350 Oral 200 Output: Urine 100 600 Estimated Blood Loss 5 - Exam GENERAL DESCRIPTION: Middle-age female lying in bed in no distress RESPIRATORY SYSTEM: Unlabored breathing , decreased breath sounds at bases HEART: S1 S2 regular rate and rhythm , ABDOMEN: Soft , no tenderness EXTREMITIES: No edema feet - Labs CBC & Chem 7: 09/18/24 03:13 09/19/24 05:50 Assessment and Plan (1) History of ESBL E. coli infection Current Visit: Yes Status: Acute Code(s): Z86.19 - PERSONAL HISTORY OF OTHER INFECTIOUS AND PARASITIC DISEASES SNOMED Code(s): 753776031 (2) UTI (urinary tract infection) Current Visit: Yes Status: Acute Code(s): N39.0 - URINARY TRACT INFECTION, SITE NOT SPECIFIED SNOMED Code(s): 50194951 (3) Stage III pressure ulcer of sacral region Current Visit: No Status: Acute Code(s): L89.153 - PRESSURE ULCER OF SACRAL REGION, STAGE 3 SNOMED Code(s): 47367798471652 (4) MRSA (methicillin resistant staph aureus) culture positive Current Visit: Yes Status: Acute Code(s): Z22.322 - CARRIER OR SUSPECTED C ARRIER OF METHICILLIN RESIS STAPH SNOMED Code(s): 237062417 Plan: 1patient presented to hospital with mental status changes did have low-grade fever elevated white count and a positive UA concerning for possible urinary source in this patient who did have a urostomy last admission CT did shows evidence of right-sided hydronephrosis could be the etiology for his recurrent infection 2-urine culture has been requested with initial culture currently growing Yumiko repeat is currently pending 3-local wound care to the sacral wound with santyl followed by moist dressing keep the area of the pressure 4-patient sacral wound cultures are growing MRSA and Yumiko glabrata, CT has been suspicious for osteomyelitis patient is covered with the vancomycin and Eraxis, 5patient is status post Port-A-Cath placement by surgery debridement of the wound on 09/18/2024, currently waiting for insurance authorization for [facility] discharge plan will be for 6-week course of vancomycin pharmacy to dose and 2-week course of oral voriconazole on discharge this was discussed with PHONOGRAPH MECHANIC for admitting team Dictation was produced using [employer] dictation software. please excuse any grammatical, word or spelling errors. Time with Patient: Less than 30
--- NOTE | 2024-09-19 19:41 | P.PN ---
Subjective Progress Note Date: 09/19/24 This is a pleasant 39 years old female with past medical history of multiple medical problems as below. She was transferred from [facility] for possible UTI that failed treatment. Patient has history of Warnicke's Korsakoff syndrome and seizures/epilepsy, history of suprapubic catheter which is not present now, neurofibromatosis, Raynaud's disease, legally blind and hearing difficulty, clubfoot and GERD. Patient currently looks confused, she does not know where she is at, she does not remember she came from another hospital or facility, she thinks is 2004 and she does not know the name of the president and she does not know why she is here. Other than then she looks, pleasant and relaxed sitting up in bed. Denies any specific complaint to me. Patient also slow to respond. As per records from [facility] she was recently treated for UTI and altered mental status 08/20-08/24. Then she was in the emergency room for altered mental status where she was treated for 2 days with IV fluid and discharged home to return back in 24 hours not eating and drinking. I called the Mr. Thapa over the phone and he told me she has been sick for about a month super tired sleepy, not eating well, not drinking well not doing anything. He states that she has been treated for 2 infection both of them were UTI. She is also had COVID. Prior to that her mentation was more awake and alert and oriented to the surrounding. As per there is no seizure-like activity. Patient is bedbound and not walking since 2019 where she was diagnosed with multiple vitamin deficiency and [facility] including vitamin B1, B6 and B12 deficiency among others. Also patient has been feeling generalized dizziness. He confirms to me she is full code. Patient is tachycardic with heart rate 116, 135 She had a fever of 99.2. Mildly tachypneic with breathing rate around 20. Labs showing leukocytosis which is worsening were 13,000 at [facility] currently 16.6. Sodium is elevated at 149, liver enzymes mildly elevated. INR is unremarkable, troponin is negative. Urine analysis suspicious for infection EKG showing sinus tachycardia at 133. CT of the brain done at [facility] showing no acute process per report. Patient currently on meropenem and normal saline 130 mL/h. Will resume her home medication but we lowered Seroquel from 50 down to 25 and we held her Ambien of 12.5 mg. 09/11 Patient remains confused to time place person. She looks relaxed not in distress, she can follow simple commands, for example when I ask her where the UTI area she points to her urinary bladder. She can tell the name of her Mr. Thapa. She denies headache dizziness weakness or numbness. No abdominal pain. Patient looks lethargic. No abdominal pain. Her right upper quadrant urostomy is in place. Leukocytosis improving yesterday down to 12,000, sodium normalized. Liver e nzymes mildly elevated. Patient currently kept on meropenem. No IV fluid Neurology evaluated the patient and tapering off her Topamax. Dilantin discontinued. Level was less than 3.0. 09/12 Patient today is much better, she knows she is in [place] although she did not know in the hospital. She knew the year 2024 and August. She she know the name of the president. She knows why she has been admitted to the hospital stating she has infection but she thinks it is in the vagina. We explained to the patient it is her UTI. Patient however denies any vaginal symptom no discharge or itching or pain as she explains. No other new complaint. Her leukocytosis significantly improved from 12 down to 4.1, hemoglobin slightly low from 12 down to 10.5 with some elements of hemodilution. Her normal saline was discontinued She remains on meropenem, fluconazole was added because of urine culture showing Yumiko tropicalis. Neurology also following closely with the plan to stop Topamax. 09/13 Patient mentation improving slowly and gradually Neurologist evaluated the patient and tapering off her Topamax while keeping Dilantin and they recommended Vimpat only if she hasmore seizure, however she did not have any seizure today She has a history of ESBL UTI and she finished course of meropenem. Cultures growing Yumiko and currently fluconazole She has evidence of stage III sacral pressure ulcer Also looks infected with culture growing MRSA and patient was placed on IV vancomycin by ID team 09/14 Patient today mentation significantly better, she is up in bed She is on IV vancomycin and fluconazole for MRSA and Yumiko in the culture No breathing problem no chest pain but she is complaining from worse with eating. Patient continues on Protonix, will increase the frequency to twice daily 09/15 Patient seen and examined by me at bedside. Patient mentation improved after stopping her sedatives and treating her wound infection with IV vancomycin. CT sacrum showing possible underlying sacral osteomyelitis. ESR is 7 However patient since yesterday is developing epigastric pain and tenderness which prevent her from eating, therefore we do not to consult surgical team for further evaluation. Also patient currently on IV Protonix. 09/16/2024 Patient is seen in follow-up today with infectious disease following and is continued with local wound care and will require a PICC line on discharge for IV antibiotic therapy. Patient will be going to [facility] on discharge and requires insurance authorization which is currently pending. Patient to continue with local wound care of the sacral region with frequent offloading. General surgery was consulted for abdominal pain which has resolved and will continue patient on current bowel regimen. Patient is afebrile with no reports of chest pain or shortness of breath. 09/17/2024 Patient is seen in follow-up today continues on antibiotics and tentatively was scheduled for PICC line although they feel they are unable to place it because her veins are very frail and tiny and at risk for infiltrating very easily and this was discussed with infectious disease and will consult general surgery and appreciate input and recommendations regarding possible port placement as patient will require prolonged antibiotics and likely outpatient for quite some time as well. Patient's potassium is extremely low at 1.9 and will be replaced per protocol and will follow-up with serial lab draws to monitor improvements. Continue with protocol and will add daily supplements as well. Patient is afebrile with no reports of chest pain or shortness of breath. Patient will be going to [facility] once cleared by consultations. Patient will require insurance authorization which remains pending at this time. 09/18/2024 Patient is seen in follow-up today currently n.p.o. and scheduled to undergo Mediport placement along with debridement of the sacral ulcer with general surgery. Patient's potassium improved post replacement and currently 4.2 today. Continue with daily supplement and also encouraged oral intake once cleared by surgery post intervention today. Plan will be for continued IV antibiotics in the outpatient setting per ID recommendations. Case management is following currently insurance authorization remains pending for [facility]. Will discuss further with consultations regarding discharge planning possibly in the next 24 to 48 hours. Patient is afebrile with no reported chest pain or shortness of breath. 09/19/2024 patient is seen in follow today sleeping although arousable. Patient is status post Mediport placement as well as debridement of the sacral ulcer being fo llowed by general surgery as well as infectious disease. Patient will continue on 6-week of vancomycin, 2 weeks of oral Vfend with close monitoring of Dilantin levels. [facility] now accepted the patient pending insurance authorization which is submitted at this time. [facility] has declined the patient. Patient is afebrile with no reports of chest pain or shortness of breath. Potassium is improved and will follow-up on repeat labs. Continue with local wound care per general surgery and infectious disease recommendations. Review of systems: Constitutional: No reports of fatigue, fever, or chills Cardiovascular: No reports of chest pain or palpitations Respiratory: No reports of shortness of breath or cough GI: No reports of nausea, vomiting, or diarrhea : No reports of dysuria or retention Neurovascular: reports of weakness, patient reports bedbound All medications have been reviewed Physical exam: Gen: This is a 39-year-old female who is asleep although arousable , alert and oriented x 2, baseline, confused, appears older than stated age, ill-appearing HEENT: Head is atraumatic, normocephalic. Pupils equal, round. Sclerae is anicteric. NECK: Supple. No JVD. No lymphadenopathy. No thyromegaly. LUNGS: Diminished breath sounds bilaterally otherwise clear to auscultation. No wheezes or rhonchi. No intercostal retractions. HEART: S1, S2 are muffled ABDOMEN: Soft. Bowel sounds are present. No masses. No tenderness. EXTREMITIES: No pedal edema. No calf tenderness. NEUROLOGICAL: Patient is awake, alert and oriented x to. Diffusely weak Assessment: Altered mental status most likely toxic/metabolic encephalopathy. Improved at baseline Infected Stage III pressure ulcer of the right buttock area with culture growing MRSA, . Sacral CT showing possible underlying osteomyelitis, status postsurgical debridement on 09/18/2024 Acute urinary tract infection, recurrent likely related to urostomy in the right upper quadrant. Culture growing Yumiko which was likely the source of infection. Epigastric pain and tenderness, resolved Severe hypokalemia, possibly secondary to poor oral intake, replaced and improved and was 1.9, currently 4.2 sepsis, present on admission secondary to stage III pressure ulcer along with UTI with tachycardia tachypnea and fever and leukocytosis, improved Hypernatremia, resolved History of seizure disorder History of hysterectomy, gastric bypass procedure and urostomy Drug allergy to penicillin causing anaphylaxis History of Warnicke's Korsakoff syndrome History of small bowel obstruction and fecal impaction Debility and mostly bedbound History of peptic ulcer disease Neurofibromatosis Drains disease Legally blind Hearing difficulty History of GERD Moderate calorie protein malnutrition with a BMI of 18.4 GI prophylaxis DVT prophylaxis Full code Plan: Patient being followed by infectious disease as well as general surgery and is status post Mediport placement along with debridement of stage III sacral ulcer. Patient will continue on vancomycin and Vfend in the outpatient setting. Patient is medically stable for discharge to ECF once insurance authorization is obtained and accepting ECF. Patient has been accepted by [facility] pending insurance authorization. Case management is following making arrangements as patient also does have veterans insurance. [facility] has declined the patient. Potassium improved status post replacement and will continue daily supplement. Repeat labs in a.m. Continue with wound care Neurology service on the case and they recommend to taper off Topamax will continue on Dilantin. Monitor Dilantin levels closely as they may be affected by the Vfend. Patient will continue on Vfend for 2 weeks per ID recommendations. Due to multiple complex medical issues, overall prognosis is guarded The impression and plan of care has been dictated by Sera Cottrell, Nurse Practitioner as directed. Dr. Asim MD I have performed a history and examination and MDM of this patient, discussed the same with the dictator, and agree with the dictator's assessment and plan as written ,documented as a scribe. Based on total visit time, I have performed more than 50% of the visit. Objective - Vital Signs Vital signs: Vital Signs Temp 98.9 F 09/19/24 13:58 Pulse 89 09/19/24 13:58 Resp 18 09/19/24 13:58 BP 102/68 09/19/24 13:58 Pulse Ox 95 09/19/24 13:58 FiO2 Intake & Output 09/18/24 09/19/24 09/19/24 18:59 06:59 18:59 Intake Total 350 200 Output Total 105 600 Balance 245 -400 Weight 38.555 kg Intake: IV 350 Oral 200 Output: Urine 100 600 Estimated Blood Loss 5 - Labs CBC & Chem 7: 09/18/24 03:13 09/19/24 05:50
[2024-09-20 04:40] LABS: Glucose,Whole Blood 98 mg/dL (70-110)
[2024-09-20] MEDS: Lacosamide IV (ages 17+ yrs) 200 MG/20 ML ML IVP SCH (05:43)
[2024-09-20 06:05] LABS: Lactic Acid, Venous 0.7 mmol/L (0.7-2.0)
[2024-09-20 06:06] LABS: African American GFR (CKD) >90 (>60 ml/min/1.73 sqM); Anion Gap 2 mmol/L; Blood Urea Nitrogen 8 mg/dL (7-17); Calcium 8.7 mg/dL (8.4-10.2); Carbon Dioxide 29 mmol/L (22-30); Chloride 109 mmol/L (98-107); Glucose 90 mg/dL (74-99); Magnesium 1.9 mg/dL (1.6-2.3); Non-African American GFR(CKD) >90 (>60 ml/min/1.73 sqM); Potassium 3.4 mmol/L (3.5-5.1); Sodium 140 mmol/L (137-145)
[2024-09-20] MEDS: LORazepam 1 MG/0.5 ML VIAL IV PRN (06:08)
[2024-09-20 07:21] LABS: Glucose,Whole Blood 87 mg/dL (70-110)
[2024-09-20 07:43] LABS: Glucose,Whole Blood 86 mg/dL (70-110)
[2024-09-20 09:49] LABS: Basophils # (A) 0.03 X 10*3/uL (0.00-0.10); Basophils % (A) 0.5 %; Eosinophils # (A) 0.17 X 10*3/uL (0.04-0.35); Eosinophils % (A) 2.6 %; HGB 10.2 g/dL (12.0-15.0); Lymphocytes # (A) 1.03 X 10*3/uL (0.90-5.00); Lymphocytes % (A) 15.8 %; MCH 29.9 pg (27.0-32.0); MCHC 30.9 g/dL (32.0-37.0); MCV 96.8 FL (80.0-97.0); Mean Platelet Volume 10.8 FL (9.5-12.2); Monocytes # (A) 0.39 X 10*3/uL (0.20-1.00); NRBC Per 100 WBC 0 X 10*3/uL (0.00-0.01); Neutrophils # (A) 4.89 X 10*3/uL (1.80-7.70); Neutrophils % (A) 74.8 %; Platelet Count 222 X 10*3/uL (140-440); RBC 3.41 X 10*6/uL (4.10-5.20); RDW 14.6 % (11.5-14.5); WBC 6.53 X 10*3/uL (4.50-10.00)
[2024-09-20 10:01] LABS: HCT 36.6 % (34.0-46.0); HGB 11.4 gm/dL (11.4-16.0); Hypochromasia Marked; MCH 29.7 pg (25.0-35.0); MCV 95.5 fL (80.0-100.0); Mean Platelet Volume 7.2; Platelet Count 192 k/uL (150-450); Poikilocytosis Slight; RBC 3.83 m/uL (3.80-5.40); RDW 15.7 % (11.5-15.5); WBC 8.1 k/uL (3.8-10.6)
--- NOTE | 2024-09-20 10:44 | XR ---
EXAMINATION TYPE: XR chest 1V portable DATE OF EXAM: 09/20/2024 10:38 AM COMPARISON: 09/18/2024 CLINICAL INDICATION: Female, 39 years old with history of Confirm NGT placement, TECHNIQUE: XR chest 1V portable view(s) obtained. FINDINGS: The heart size is normal. The pulmonary vasculature is normal. The lungs are clear. There is a port on the right with the tip in the distal superior vena cava region. Nasogastric transv erses the thorax with tip in the proximal left upper quadrant of the abdomen. This could be advanced slightly. IMPRESSION: 1. No acute pulmonary process. 2. Adequate Placement of nasogastric tube within the proximal left upper quadrant of the abdomen. Adv ancing approximately 2 cm may provide better positioning. [facility], , 09/20/2024 10:42 AM
--- NOTE | 2024-09-20 13:21 | P.CNPUL ---
History of Present Illness Consult date: 09/20/24 Chief complaint: Altered mental status History of present illness: This is a 39-year-old female patient who was found to be completely unresponsive this morning and based on that, the patient was transferred to the intensive care unit for further monitoring. At time of arrival, the patient was afebrile, hemodynamically stable with a pulse ox of 99% on room air oxygen. The patient was in A team evaluation this morning and was reported that the patient was having seizure activity. Subsequently, she became completely unresponsive. Based on that, the patient was transferred to the ICU. Noted the patient was taken Dilantin for history of seizures and her levels were essentially therapeutic. She is known to have seizure disorder. Neurology was asked to reevaluate the patient. The patient was given IV Vimpat 100 mg and started on a dose of 100 mg every 12 hours in addition to Dilantin and EEG is currently in progress. The patient is chronically debilitated. She has history of alcoholism. She has history of Wernicke's encephalopathy related to vitamin be deficiency. She has also had frequent urine tract infections and the patient currently has a urostomy in place. She seems to be chronically malnourished with a body mass index of 18.4. She also has a stage IV pressure ulcer in the coccyx that was debrided recently by general surgery. Sacral CAT scan also showed possibility of osteomyelitis. For now, the white cell count is at 8.1, hemoglobin 11.4 and a platelet count of 192. Sodium is at 140, potassium is at 3.4, chloride is at 109 with a bicarb of 29, BUN is 8 with a creatinine of 0.7. Normal LFTs. Troponins are negative. The most recent urine culture is positive for Yumiko tropicalis. The wound culture postdebridement showed MRSA and Yumiko albicans and glabrata. Antibiotic coverage per ID includes a combination of voriconazole and vancomycin. She is on normal saline at rate of 75 cc an hour. Chest x-ray was done this morning and it shows no acute cardiopulmonary process. NG tube placed. Review of Systems ROS unobtainable: due to mental status Past Medical History Past Medical History: Fibromyalgia, GERD/Reflux, Pneumonia, Seizure Disorder Additional Past Medical History / Comment(s): has seizures on a daily basis one or more a day, cHRONIC NECK/BACK PAIN, N/T FINGERS AND TOES, RAYNAUDS SYN. MENIERE'S,tinnitus, past uterine prolpase(sx) IBS, MUSCLE WEAKNESS, USES WALKER OR W/C History of Any Multi-Drug Resistant Organisms: ESBL, MRSA Date of last positivie culture/infection: 09/10/24 -MRSA; 01/06/24 -ESBL MDRO Source:: MRSA- buttock, urine; ESBL- urine Past Surgical History: Bariatric Surgery, Cholecystectomy, Hysterectomy Additional Past Surgical History / Comment(s): EYE SX (MUSCLES), radha en y 2013 Past Anesthesia/Blood Transfusion Reactions: No Reported Reaction Additional Past Anesthesia/Blood Transfusion Reaction / Comment(s): clausterphobia Past Psychological History: Anxiety, Depression Smoking Status: Unknown if ever smoked Past Alcohol Use History: Unable to Obtain Past Drug Use History: Unable to Obtain, Marijuana - Past Family History Mother Family Medical History: Cancer Additional Family Medical History / Comment(s): TONGUE Father Family Medical History: Hypertension Medications and Allergies Home Medications Medication Instructions Recorded Confirmed Type QUEtiapine FUMARATE 50 mg PO HS 11/25/19 09/09/24 History Fludrocortisone [Florinef] 0.1 mg PO BID 07/19/21 09/09/24 History Famotidine 40 mg PO HS 01/05/24 09/09/24 History Oxybutynin Chloride [oxyBUTYnin 10 mg PO DAILY 01/05/24 09/09/24 History chloride ER] Pyridoxine [Vitamin B-6] 50 mg PO DAILY 01/05/24 09/09/24 History Thiamine [Vitamin B-1] 100 mg PO DAILY 01/05/24 09/09/24 History Topiramate [Topamax] 50 mg PO TID 01/05/24 09/09/24 History Cranberry/Vitamin C 60mg/250mg 1 tab PO DAILY 08/20/24 09/09/24 History HYDROcodone/APAP 7.5-325MG [[place] 1 tab PO Q6H PRN 08/20/24 09/09/24 History 7.5-325] Lactulose 10 gm PO TID PRN 08/20/24 09/09/24 History Multivit-Min/Iron/Folic/Lutein 1 tab PO DAILY 08/20/24 09/09/24 History [Centrum Silver Women Tablet] Phenytoin Sodium Extended 100 mg PO TID 08/20/24 09/09/24 History [Dilantin] Sodium Bicarbonate Tab 650 mg PO BID 08/20/24 09/09/24 History Venlafaxine HCl [Effexor] 75 mg PO TID 08/20/24 09/09/24 History allopurinoL [Zyloprim] 100 mg PO DAILY 08/20/24 09/09/24 History busPIRone HCl [Buspar] 5 mg PO TID 08/20/24 09/09/24 History Baclofen [Lioresal] 20 mg PO TID 09/09/24 09/09/24 History Gabapentin 1,200 mg PO TID 09/09/24 09/09/24 History Zolpidem Tartrate [Ambien Cr] 12.5 mg PO HS 09/09/24 09/09/24 History Vancomycin HCl in 5 % Dextrose 0.5 gm IV Q12H #40 each 09/16/24 Rx [Vancomycin 1.25 Gram/250Ml-D5w] Voriconazole [Vfend] 200 mg PO Q12HR #28 tablet 09/16/24 Rx Allergies Allergy/AdvReac Type Severity Reaction Status Date / Time levetiracetam [From [facility]] Allergy Rash/Hives Verified 09/09/24 19:45 Penicillins Allergy "STOPPED Verified 09/09/24 19:45 BREATHING" NSAIDS (Non-Steroidal AdvReac "MAY CAUSE Verified 09/09/24 19:45 Anti-Inflamma ULCERS R/T BARIATRIC SX" Physical Exam Vitals: Vital Signs Temp Pulse Pulse Resp BP Pulse Ox 09/20/24 05:54 119 H 17 107/77 97 09/19/24 20:00 98.4 F 124 H 17 98/64 95 09/19/24 15:00 98.8 F 115 H 18 100/66 09/19/24 13:58 98.9 F 89 18 102/68 95 Intake and Output 09/19/24 09/20/24 09/20/24 22:59 06:59 14:59 Output Total 500 1000 Balance -500 -1000 Output: Urine 500 1000 Other: Voiding Method Ileal Conduit (Right) The patient appeared chronically debilitated, appears malnourished with a body mass index of 18.4. Unresponsive, no signs of any significant respiratory distress. Head exam is unremarkable. No scleral icterus or corneal arcus noted. Neck is without jugular venous distension, thyromegaly, or carotid bruits. Carotid upstrokes are brisk bilaterally. Lungs are clear to auscultation and percussion. Cardiac exam reveals the PMI to be normally sized and situated. Rhythm is regular. First and second heart sounds normal. No murmurs, rubs or gallops. Abdominal exam reveals normal bowel sounds, no masses, no organomegaly and no aortic enlargement. Extremities are nonedematous and both femoral and pedal pulses are normal. Examination of the skin revealed no evidence of significant rashes, suspicious appearing nevi or other concerning lesions. Neurologically, the patient is unresponsive to any verbal or painful stimulation. Neck is supple. Cranial nerves show equal and symmetric pupils around 3 to 4 mm in size. No nystagmus. No clonus. Pupils remain reactive to light. No facial asymmetry. Motor and sensory function cannot be assessed. Reflexes are diminished bilaterally in all 4 extremities. No Babinski. No clon us. Results - Laboratory Findings CBC and BMP: 09/20/24 09:50 09/20/24 05:41 PT/INR, D-dimer PT 10.4 sec (10.0-12.5) 09/09/24 20:13 INR 0.9 (<1.2) 09/09/24 20:13 Abnormal lab findings: Abnormal Labs 09/09/24 09/09/24 09/09/24 20:13 20:13 20:13 WBC 16.7 H RBC Hgb Hct MCV MCHC 30.9 L RDW 15.6 H Immature Gran # Neutrophils # 14.4 H Sodium 149 H Potassium Chloride 116 H Carbon Dioxide Anion Gap BUN 25 H Glucose 123 H POC Glucose (mg/dL) AST 37 H ALT 63 H Alkaline Phosphatase 152 H C-Reactive Protein Urine Appearance Urine Protein 1+ H Urine Nitrite Positive H Ur Leukocyte Esterase Large H Urine RBC 11 H Urine WBC 36 H Urine Bacteria Occasional H Urine Mucus Rare H Urine Yeast (Budding) Few H Free Phenytoin 09/10/24 09/10/24 09/10/24 07:25 07:25 07:25 WBC 12.53 H RBC 3.99 L Hgb Hct MCV 97.2 H MCHC 30.9 L RDW 14.9 H Immature Gran # 0.06 H Neutrophils # 10.38 H Sodium Potassium Chloride 112 H Carbon Dioxide 18 L Anion Gap BUN 21 H Glucose POC Glucose (mg/dL) AST 52 H ALT 68 H Alkaline Phosphatase 143 H C-Reactive Protein 6.2 H Urine Appearance Urine Protein Urine Nitrite Ur Leukocyte Esterase Urine RBC Urine WBC Urine Bacteria Urine Mucus Urine Yeast (Budding) Free Phenytoin <0.8 L 09/10/24 09/12/24 09/12/24 11:57 04:16 04:16 WBC 4.14 L RBC 3.51 L Hgb 10.5 L Hct 33.7 L MCV MCHC 31.2 L RDW Immature Gran # Neutrophils # Sodium 146 H Potassium Chloride 116 H Carbon Dioxide 16.4 L Anion Gap 13.60 H BUN Glucose 66 L POC Glucose (mg/dL) AST ALT Alkaline Phosphatase C-Reactive Protein Urine Appearance Cloudy H Urine Protein Trace H Urine Nitrite Positive H Ur Leukocyte Esterase Large H Urine RBC Urine WBC 39 H Urine Bacteria Rare H Urine Mucus Rare H Urine Yeast (Budding) Few H Free Phenytoin 09/14/24 09/14/24 09/14/24 03:53 04:05 09:13 WBC 3.56 L RBC 3.68 L Hgb 11.1 L Hct 35.1 L MCV MCHC 31.6 L RDW Immature Gran # Neutrophils # Sodium Potassium Chloride Carbon Dioxide Anion Gap BUN Glucose POC Glucose (mg/dL) 63 L AST ALT Alkaline Phosphatase C-Reactive Protein 1.8 H Urine Appearance Urine Protein Urine Nitrite Ur Leukocyte Esterase Urine RBC Urine WBC Urine Bacteria Urine Mucus Urine Yeast (Budding) Free Phenytoin 09/17/24 09/17/24 09/17/24 06:35 06:35 13:08 WBC 4.00 L RBC 3.72 L Hgb 11.0 L Hct 34.5 L MCV MCHC 31.9 L RDW Immature Gran # Neutrophils # Sodium Potassium 1.9 L* 2.4 L* Chloride Carbon Dioxide 34 H Anion Gap BUN 6 L Glucose 72 L POC Glucose (mg/dL) AST ALT Alkaline Phosphatase C-Reactive Protein Urine Appearance Urine Protein Urine Nitrite Ur Leukocyte Esterase Urine RBC Urine WBC Urine Bacteria Urine Mucus Urine Yeast (Budding) Free Phenytoin 09/17/24 09/18/24 09/18/24 18:10 03:08 03:13 WBC RBC 3.65 L Hgb 10.8 L Hct 33.3 L MCV MCHC RDW 15.9 H Immature Gran # Neutrophils # Sodium Potassium 2.7 L* Chloride 109 H Carbon Dioxide Anion Gap BUN 6 L Glucose 68 L POC Glucose (mg/dL) AST ALT Alkaline Phosphatase C-Reactive Protein Urine Appearance Urine Protein Urine Nitrite Ur Leukocyte Esterase Urine RBC Urine WBC Urine Bacteria Urine Mucus Urine Yeast (Budding) Free Phenytoin 09/20/24 05:41 WBC RBC Hgb Hct MCV MCHC RDW Immature Gran # Neutrophils # Sodium Potassium 3.4 L Chloride 109 H Carbon Dioxide Anion Gap BUN Glucose POC Glucose (mg/dL) AST ALT Alkaline Phosphatase C-Reactive Protein Urine Appearance Urine Protein Urine Nitrite Ur Leukocyte Esterase Urine RBC Urine WBC Urine Bacteria Urine Mucus Urine Yeast (Budding) Free Phenytoin - Diagnostic Findings Chest x-ray: image reviewed Assessment and Plan Plan: Altered mental status, likely postictal following the seizure. Other possibilities including metabolic encephalopathy cannot be completely ruled out. Clinically, the patient does not look to be septic. She is hemodynamically stable. urinary tract infection with Yumiko tropicalis. The patient has had frequent UTIs in the past and the patient has a diverting urostomy. Stage IV coccyx wound, post debredment and cultures are positive for yumiko and MRSA , currently on vancomycin and voriconazole. History of epilepsy on Dilantin with therapeutic levels. History of alcoholism and Wernicke encephalopathy Mnire's disease Raynaud's disease Previous history of COVID-19 infection Urostomy (functional), constructed due to recurrent UTIs Wheelchair-bound History of recurrent urinary tract infection GERD History of anxiety History of depression Plan Aspiration precautions Insert NG tube in place Stat EEG Neurology consultation Antiepileptic medication and the patient is currently on a combination of Dilantin and Vimpat Monitor mental status Keep the head of the bed elevated Intubation if the patient is unable to protect her airways. For now, she seems to be stable without any signs of respiratory compromise. Will obtain a blood gas Chest x-ray post NGT tube insertion showed no acute abnormalities Start enteral feeding for nutritional support, low rate Continue antibiotics per IDs recommendation. The patient is currently on a combination of Vfend and vancomycin. Wound care and surgical debridement has been done Normal saline at rate of 75 cc an hour Heparin subcu for DVT prophylaxis Will continue monitoring here in the intensive care unit. Time with Patient: Greater than 30
--- NOTE | 2024-09-20 14:15 | P.PN ---
Subjective Progress Note Date: 09/20/24 Principal diagnosis: Reason for follow-up is UTI and sacral pressure ulcer Patient is a 39-year-old female with multiple comorbidities including fibromyalgia reflux pneumonia seizure disorder patient also have a urostomy and recent multiple admission to the hospital for a UTI patient has been transferred to [facility] from [facility] where patient apparently has been diagnosed with a UTI failing outpatient treatment. Patient is status post Port-A-Cath placement and debridement of the sacral wound by general surgery on 09/18/2024. On today's evaluation that is 09/20/2024, patient did not have any fever and is breathing comfortably on 2 L nasal cannula oxygen patient did have episode of decreased responsiveness and questionable seizure for which the patient has been transferred to the ICU patient is currently lethargic unable to provide any history no vomiting or diarrhea has been reported. Patient white count is 8.1 creatinine 0.70 Vanco trough is 16 Objective - Vital Signs Vital signs: Vital Signs Temp 98.4 F 09/19/24 20:00 Pulse 113 H 09/20/24 10:00 Resp 19 09/20/24 10:00 BP 108/79 09/20/24 10:00 Pulse Ox 100 09/20/24 10:00 FiO2 Intake & Output 09/19/24 09/20/24 09/20/24 18:59 06:59 18:59 Intake Total 150 Output Total 500 1000 125 Balance -500 -1000 25 Weight 38.555 kg Intake: IV 150 Sodium Chloride 0.9% 1, 150 000 ml @ 75 mls/hr IV . [id number] Rx#: [id number] Output: Urine 500 1000 125 Other: Voiding Method Ileal Conduit (Right) Ileal Conduit (Right) - Exam GENERAL DESCRIPTION: Middle-age female lying in bed in no distress RESPIRATORY SYSTEM: Unlabored breathing , decreased breath sounds at bases HEART: S1 S2 regular rate and rhythm , ABDOMEN: Soft , no tenderness EXTREMITIES: No edema feet - Labs CBC & Chem 7: 09/20/24 09:50 09/20/24 05:41 Labs: Abnormal Lab Results - Last 24 Hours (Table) 09/20/24 09/20/24 09/20/24 Range/Units 05:41 05:41 09:50 RBC 3.41 L (4.10-5.20) X 10*6/uL Hgb 10.2 L (12.0-15.0) g/dL Hct 33.0 L (37.2-46.3) % MCHC 30.9 L (32.0-37.0) g/dL RDW 14.6 H 15.7 H (11.5-14.5) % Potassium 3.4 L (3.5-5.1) mmol/L Chloride 109 H (98-107) mmol/L Assessment and Plan (1) History of ESBL E. coli infection Current Visit: Yes Status: Acute Code(s): Z86.19 - PERSONAL HISTORY OF OTHER INFECTIOUS AND PARASITIC DISEASES SNOMED Code(s): 806207587 (2) UTI (urinary tract infection) Current Visit: Yes Status: Acute Code(s): N39.0 - URINARY TRACT INFECTION, SITE NOT SPECIFIED SNOMED Code(s): 53221118 (3) Stage III pressure ulcer of sacral region Current Visit: No Status: Acute Code(s): L89.153 - PRESSURE ULCER OF SACRAL REGION, STAGE 3 SNOMED Code(s): 17343085496452 (4) MRSA (methicillin resistant staph aureus) culture positive Current Visit: Yes Status: Acute Code(s): Z22.322 - CARRIER OR SUSPECTED CARRIER OF METHICILLIN RESIS STAPH SNOMED Code(s): 336776061 Plan: 1patient presented to hospital with mental status changes did have low-grade fever elevated white count and a positive UA concerning for possible urinary s ource in this patient who did have a urostomy last admission CT did shows evidence of right-sided hydronephrosis could be the etiology for his recurrent infection 2-urine culture has been requested with initial culture currently growing Yumiko repeat is currently pending 3-local wound care to the sacral wound with santyl followed by moist dressing keep the area of the pressure 4-patient sacral wound cultures are growing MRSA and Yumiko glabrata, CT has been suspicious for osteomyelitis patient is covered with the vancomycin and Eraxis, 5patient is status post Port-A-Cath placement by surgery debridement of the wound on 09/18/2024, seem to have issues with decreased level responsiveness and possible surgical for the patient to be transferred to the ICU await EEG and monitor clinical course closely Dictation was produced using [employer] software. please excuse any grammatical, word or spelling errors. Time with Patient: Less than 30
[2024-09-20] MEDS ORDERED: QUEtiapine 25 MG TAB PO PRN (14:49)
[2024-09-20] MEDS: SODIUM CHLORIDE 0.9% 1,000 ML IV SCH (15:51)
[2024-09-20] MEDS: VANCOMYCIN TROUGH DUE 1 EACH MISC MISCELLANE ONE (15:53)
--- NOTE | 2024-09-20 16:53 | P.PN ---
Subjective Progress Note Date: 09/20/24 09/20/2024: Patient was seen for follow-up. Apparently patient has episode of altered mental status at around 4 AM when she became unresponsive. An A-team was called. Patient was transferred to 3 . They she stayed for 1 hour, improved but at around 6:30 AM, the same team has to be called again. She was unresponsive, obtunded and she was transferred to ICU at around 7:30 AM. She has been unresponsive, not side any word, has NG tube in place. While placing NG tube, she did not fight or wiggled, just extended her head little. 09/17/2024: Patient was seen for a follow-up. Patient is sleeping at this time. Per nursing report, patient is continues to be confused, hearing voices, thinks her and children are there although they are not. No seizures witnessed by the nursing staff. 09/16/2024: Patient was initially seen by Dr. Robi Morris. Please refer to his note for details. Patient is a 39-year-old female with history of seizure disorder and multiple other medical conditions, was brought to the hospital from facility because of need for IV antibiotics for UTI. Patient was seen for a follow-up. Patient denies headache. She admits to having dizziness when she sits up. Patient admits to having some seizure-like episodes in the hospital as well. I spoke to patient's nurse, who states that patient reports of having some seizures although no one has witnessed seizures in the hospital. She herself, or the night nurse have not witnessed any seizures. She still is very confused, thinking that her and kids have visited her although they have not. Objective - Vital Signs Vital signs: Vital Signs Temp 98.4 F 09/19/24 20:00 Pulse 113 H 09/20/24 10:00 Resp 19 09/20/24 10:00 BP 108/79 09/20/24 10:00 Pulse Ox 100 09/20/24 10:00 FiO2 Intake & Output 09/19/24 09/20/24 09/20/24 18:59 06:59 18:59 Intake Total 150 Output Total 500 1000 125 Balance -500 -1000 25 Intake: IV 150 Sodium Chloride 0.9% 1, 150 000 ml @ 75 mls/hr IV . [id number] [facility] Rx#: [id number] Output: Urine 500 1000 125 Other: Voiding Method Ileal Conduit (Right) Ileal Conduit (Right) - Exam On examination patient is a young female, appears very malnutrition, cachectic appearing female. She is obtunded, not responding to any painful stimuli or verbal cues. No obvious seizure-like activity noted. Patient is nonambulatory. Patient has overall reduced muscle mass. - Labs CBC & Chem 7: 09/21/24 05:47 09/21/24 05:47 Labs: Abnormal Lab Results - Last 24 Hours (Table) 09/20/24 09/20/24 09/20/24 Range/Units 05:41 05:41 09:50 RBC 3.41 L (4.10-5.20) X 10*6/uL Hgb 10.2 L (12.0-15.0) g/dL Hct 33.0 L (37.2-46.3) % MCHC 30.9 L (32.0-37.0) g/dL RDW 14.6 H 15.7 H (11.5-14.5) % Potassium 3.4 L (3.5-5.1) mmol/L Chloride 109 H (98-107) mmol/L Assessment and Plan Assessment: This is a 39-year-old woman with history of epilepsy, Warnicke encephalopathy, recurrent urinary tract infection who was transferred from [facility] for escalation of care of her urinary tract infection since she failed her outpatient treatment and needed IV antibiotic. Patient was in our facility a few weeks ago and had extensive neurologic workup and had CSF study which was unremarkable for any underlying infection as well as an EEG which was normal. Altered mental status seems due to septic encephalopathy from her urosepsis--mentation had improved in the hospital, but has got worse again last night with episodes of unresponsiveness. Acute urinary tract infection History of epilepsy on Dilantin History of Wernicke encephalopathy History of Mnire's disease History of Raynaud's disease History of recent COVID-19 infection History of chronic indwelling suprapubic catheter Wheelchair-bound History of recurrent urinary tract infection History of GERD History of anxiety History of depression Plan: Patient will be continued on phenytoin 100 mg, 3 times daily. It seems per our last note her outpatient neurologist Dr. Jo has stopped Topamax and placed her on Dilantin. Topamax can decrease appetite and make weight loss further worse. Patient is off Topamax. Patient had episodes of unresponsiveness couple nights ago. Patient started on Vimpat 100 mg twice daily. Patient also has probable metabolic encephalopathy, related to infectious source. Patient is being treated for UTI, and also has sacral wounds concerning for osteomyelitis. Patient on vancomycin and Eraxis. ID following. Patient is status post surgical debridement of the wound on 09/18/2024 Repeat Dilantin level is therapeutic 12.2, on 09/19/2024. Continue Dilantin 100 mg 3 times a day. Stat EEG was ordered. We will review. Seizure precautions seizure pads Recommend the patient to follow-up with her outpatient neurologist within 3 weeks Will defer the rest of the medical management to the primary team. Patient has hypokalemia 1.9, now improved 3.4.
[2024-09-20] MEDS: VANCOMYCIN 500 MG in SODIUM CHLORIDE 0.9% 250 ML IVPB SCH (17:30)
[2024-09-20] MEDS: PHENYTOIN SODIUM INJ 50 MG/ML 2 ML VIAL IVP SCH (17:36)
[2024-09-20] MEDS: POTASSIUM BICARBONATE/CIT AC 20 MEQ TABLET.EFF NG-TUBE SCH (17:38)
[2024-09-20] MEDS: HEPARIN SODIUM,PORCINE 5,000 UNIT/ML 1 ML VIAL SQ SCH (17:38)
[2024-09-20 18:22] LABS: Glucose,Whole Blood 98 mg/dL (70-110)
[2024-09-21 00:05] LABS: Glucose,Whole Blood 92 mg/dL (70-110)
--- NOTE | 2024-09-21 02:14 | PN ---
PROGRESS NOTE DATE OF SERVICE: 09/20/2024 SUBJECTIVE: This is a 39-year-old woman, who was admitted with change in mental status and toxic metabolic encephalopathy with sacral stage III pressure ulcer, who had some change in mental status last night. The patient was not arousable, and subsequently, the patient was transferred to ICU for further evaluation and treatment. The patient does not have a CT scan of the brain ordered. Otherwise, the patient had polymicrobial avtar from the wound from MRSA, and Yumiko from the buttocks also. PAST MEDICAL HISTORY: Reviewed. REVIEW OF SYSTEMS: Could not be taken. CURRENT MEDICATIONS: Reviewed. PHYSICAL EXAMINATION: VITAL SIGNS: Pulse 101, blood pressure n respiration 20. HEENT: Conjunctivae normal. NECK: No JVD. CARDIOVASCULAR SYSTEM: S1, S2. RESPIRATIONS: Few scattered rhonchi. ABDOMEN: Soft. NERVOUS SYSTEM: Nonfocal. LABORATORY DATA: Reviewed. ASSESSMENT: 1. Infected stage III pressure ulcer with possible sepsis and change in mental status and metabolic encephalopathy. 2. Culture growing positive methicillin-resistant Staphylococcus aureus as well as Yumiko. 3. Possible underlying osteomyelitis. abnormal movements possibly rt facial focal seizures? 4. Active urinary tract infection. 5. Severe hypokalemia. 6. Multiple medical issues. 7. History of seizure disorder. RECOMMENDATIONS: Recommended to continue with current management, continue with symptomatic treatment. I would recommend to continue the antibiotics antifungals. I would also recommend to closely follow with multiple consultants and Neurology consultations. CT of the brain. DVT prophylaxis. Prognosis is guarded because of multiple complex medical conditions. Further recommendations to follow. See orders for details. MMODL / IJN: [id number] / CHANTAL
--- NOTE | 2024-09-21 04:50 | EEG ---
ELECTROENCEPHALOGRAM REPORT PREAMBLE: This is a 39-year-old female with episodes of unresponsiveness. This study is performed to evaluate for any epileptiform activity. EEG FINDINGS: This is a 21-channel portable EEG recorded with video component, utilizing 10/20 international system with referential and bipolar montages. The recording starts with the presence of somewhat disorganized background, consisting of mixed frequencies of 5- 6 Hz, moderate amplitude theta activity, intermixed with some fast frequency beta activity and also with some periods of generalized suppression lasting for 1 second. Sporadic, intermittent high amplitude sharp appearing waves were seen, which often had AP-gradient lag suggestive of possible triphasic morphology, some have central sharp appearing quality as well. During early part of study, a lot of sleep spindles were also seen. During last quarter of the study, there was presence of mostly 6 Hz moderate amplitude theta activity seen in bihemispheric region. No electrographic seizures were recorded. Photic stimulation was not performed. IMPRESSION: This is an abnormal EEG because of presence of background disorganization, and slowing, suggestive of femrhljy-ms-ahwztm encephalopathy. There were presence of intermittent high amplitude sharp appearing waves, which have mostly triphasic quality, although some may have sharp wave quality as well. No electrographic seizure was recorded. Clinical correlation and followup EEG recommended, as clinically indicated. MMODL / IJN: [id number] /
[2024-09-21 06:14] LABS: African American GFR (CKD) >90 (>60 ml/min/1.73 sqM); Anion Gap 4 mmol/L; Blood Urea Nitrogen 8 mg/dL (7-17); Calcium 8.7 mg/dL (8.4-10.2); Carbon Dioxide 30 mmol/L (22-30); Chloride 109 mmol/L (98-107); Glucose 100 mg/dL (74-99); Non-African American GFR(CKD) >90 (>60 ml/min/1.73 sqM); Potassium 3.6 mmol/L (3.5-5.1); Sodium 143 mmol/L (137-145)
[2024-09-21 06:25] LABS: HCT 30.1 % (34.0-46.0); Hypochromasia Moderate; MCH 29.1 pg (25.0-35.0); MCHC 31.2 g/dL (31.0-37.0); MCV 93.2 fL (80.0-100.0); Mean Platelet Volume 7.7; Platelet Count 206 k/uL (150-450); Poikilocytosis Slight; RBC 3.23 m/uL (3.80-5.40); RDW 15.8 % (11.5-15.5); WBC 6.6 k/uL (3.8-10.6)
[2024-09-21 06:27] LABS: HGB 9.4 gm/dL (11.4-16.0)
[2024-09-21] MEDS: POTASSIUM CHLORIDE 10 MEQ in WATER FOR INJECTION 1 100ML.BAG IVPB SCH (06:29)
[2024-09-21] MEDS: PYRIDOXINE 50 MG TAB PO SCH (08:37)
[2024-09-21] MEDS: THIAMINE 100 MG TAB PO SCH (08:42)
--- NOTE | 2024-09-21 10:48 | P.PN ---
Subjective Progress Note Date: 09/21/24 This is a 39-year-old female patient who was found to be completely unresponsive this morning and based on that, the patient was transferred to the intensive care unit for further monitoring. At time of arrival, the patient was afebrile, hemodynamically stable with a pulse ox of 99% on room air oxygen. The patient was in A team evaluation this morning and was reported that the patient was having seizure activity. Subsequently, she became completely unresponsive. Based on that, the patient was transferred to the ICU. Noted the patient was taken Dilantin for history of seizures and her levels were essentially therapeutic. She is known to have seizure disorder. Neurology was asked to reevaluate the patient. The patient was given IV Vimpat 100 mg and started on a dose of 100 mg every 12 hours in addition to Dilantin and EEG is currently in progress. The patient is chronically debilitated. She has history of alcoholism. She has history of Wernicke's encephalopathy related to vitamin be deficiency. She has also had frequent urine tract infections and the patient currently has a uros mellisa in place. She seems to be chronically malnourished with a body mass index of 18.4. She also has a stage IV pressure ulcer in the coccyx that was debrided recently by general surgery. Sacral CAT scan also showed possibility of osteomyelitis. For now, the white cell count is at 8.1, hemoglobin 11.4 and a platelet count of 192. Sodium is at 140, potassium is at 3.4, chloride is at 109 with a bicarb of 29, BUN is 8 with a creatinine of 0.7. Normal LFTs. Troponins are negative. The most recent urine culture is positive for Yumiko tropicalis. The wound culture postdebridement showed MRSA and Yumiko albicans and glabrata. Antibiotic coverage per ID includes a combination of voriconazole and vancomycin. She is on normal saline at rate of 75 cc an hour. Chest x-ray was done this morning and it shows no acute cardiopulmonary process. NG tube placed. On 09/21/2024, the patient is being seen for a follow-up. The patient is awake and she is communicating. She is a bit lethargic. There is obvious improvement in the patient's mentation over the past 24 hours. No seizure activity has been noted and the patient remains on a combination of Dilantin and Vimpat. Oral intake is quite diminished and the patient has an NG tube in place and the patient receiving enteral feeding for nutritional support. EEG was done yesterday and the EEG findings were abnormal with background disorganization and slowing suggestive of moderate to severe encephalopathy. At the same time, ther e was intermittent high amplitude sharp waves mostly triphasic quality and some may have sharp wave quality as well. No active seizures noted. Neurology is on the case. Meanwhile, the patient is hemodynamically stable. He is on 2 L of oxygen by nasal cannula. Her white cell count is 6.6 with a hemoglobin 9.4 and a platelet count of 206. BUN is 8 with a creatinine of 0.6 and a sodium levels at 143. She remains on Vfend. She remains on vancomycin. Rest of the medications are essentially unchanged. She is on heparin subcu for DVT prophylaxis. She is on vitamin B1 and B6 supplements. Objective - Vital Signs Vital signs: Vital Signs Temp 98.3 F 09/21/24 04:00 Pulse 113 H 09/21/24 07:00 Resp 10 L 09/21/24 07:00 BP 108/77 09/21/24 07:00 Pulse Ox 94 L 09/21/24 07:00 FiO2 Intake & Output 09/20/24 09/21/24 09/21/24 18:59 06:59 18:59 Intake Total 935 1320 105 Output Total 480 1190 30 Balance 455 130 75 Weight 38.555 kg 43.3 kg Intake: IV 875 950 75 Sodium Chloride 0.9% 1, 750 825 75 000 ml @ 75 mls/hr IV . [id number] JACQUELIN Rx#:[id number] Vancomycin 500 mg In 125 125 Sodium Chloride 0.9% 250 ml @ 125 mls/hr IVPB Q12H JACQUELIN Rx#:[id number] Oral 0 50 Tube Feeding 60 230 30 Other 90 Output: Urine 480 1190 30 Other: Voiding Method Ileal Conduit (Right) Ileal Conduit (Right) - Exam The patient appeared chronically debilitated, appears malnourished with a body mass index of 18.4. Communicating, lethargic and weak and still having some degree of encephalopathy although she significant rales compared to yesterday. Moving all 4 extremities. Head exam is unremarkable. No scleral icterus or corneal arcus noted. Neck is without jugular venous distension, thyromegaly, or carotid bruits. Carotid upstrokes are brisk bilaterally. Lungs are clear to auscultation and percussion. Cardiac exam reveals the PMI to be normally sized and situated. Rhythm is regular. First and second heart sounds normal. No murmurs, rubs or gallops. Abdominal exam reveals normal bowel sounds, no masses, no organomegaly and no aortic enlargement. Extremities are nonedematous and both femoral and pedal pulses are normal. Examination of the skin revealed no evidence of significant rashes, suspicious appearing nevi or other concerning lesions. Neurologically, the patient is communicating. She is still sleepy and has an underlying mild degree of encephalopathy. Neck is supple. Cranial nerves show equal and symmetric pupils around 3 to 4 mm in size. No nystagmus. No clonus. Pupils remain reactive to light. No facial asymmetry. Motor and sensory function cannot be assessed. Reflexes are diminished bilaterally in all 4 extremities. No Babinski. No clonus. - Labs CBC & Chem 7: 09/21/24 05:47 09/21/24 05:47 Labs: Abnormal Lab Results - Last 24 Hours (Table) 09/20/24 09/20/24 09/21/24 Range/Units 05:41 09:50 05:47 RBC 3.41 L 3.23 L (4.10-5.20) X 10*6/uL Hgb 10.2 L 9.4 L D (12.0-15.0) g/dL Hct 33.0 L 30.1 L (37.2-46.3) % MCHC 30.9 L (32.0-37.0) g/dL RDW 14.6 H 15.7 H 15.8 H (11.5-14.5) % Chloride (98-107) mmol/L Glucose (74-99) mg/dL 09/21/24 Range/Units 05:47 RBC (4.10-5.20) X 10*6/uL Hgb (12.0-15.0) g/dL Hct (37.2-46.3) % MCHC (32.0-37.0) g/dL RDW (11.5-14.5) % Chloride 109 H (98-107) mmol/L Glucose 100 H (74-99) mg/dL Assessment and Plan Plan: Altered mental status, likely postictal following the seizure. Clinically i mproved. EEG showing some moderate to severe encephalopathy. No active seizure activity noted on the EEG. The EEG itself was still abnormal. Remains on antiepileptic changes and neurology on the case and the patient is currently combination of Vimpat and Dilantin. urinary tract infection with Yumiko tropicalis. The patient has had frequent UTIs in the past and the patient has a diverting urostomy. Stage IV coccyx wound, post debredment and cultures are positive for yumiko and MRSA , currently on vancomycin and voriconazole. History of epilepsy on Dilantin with therapeutic levels. History of alcoholism and Wernicke encephalopathy Mnire's disease Raynaud's disease Previous history of COVID-19 infection Urostomy (functional), constructed due to recurrent UTIs Wheelchair-bound History of recurrent urinary tract infection GERD History of anxiety History of depression Plan Keep NG tube in place Continue enteral feeding for nutritional support EEG was noted Neurology consultation is appreciated Antiepileptic medication and the patient is currently on a combination of Dilantin and Vimpat Monitor mental status Keep the head of the bed elevated Continue antibiotics per IDs recommendation. The patient is currently on a combination of Vfend and vancomycin. Wound care and surgical debridement has been done Normal saline at rate of 75 cc an hour Heparin subcu for DVT prophylaxis Will continue monitoring here in the intensive care unit. Time with Patient: Greater than 30
[2024-09-21 12:06] LABS: Glucose,Whole Blood 126 mg/dL (70-110)
--- NOTE | 2024-09-21 13:04 | P.PN ---
Subjective Progress Note Date: 09/21/24 Principal diagnosis: Reason for follow-up is UTI and sacral pressure ulcer Patient is a 39-year-old female with multiple comorbidities including fibromyalgia reflux pneumonia seizure disorder patient also have a urostomy and recent multiple admission to the hospital for a UTI patient has been transferred to [facility] from [facility] where patient apparently has been diagnosed with a UTI failing outpatient treatment. Patient is status post Port-A-Cath placement and debridement of the sacral wound by general surgery on 09/18/2024. On today's evaluation that is 09/21/2024, Patient did spike a fever of 101 F at noon patient is more awake mention not feeling that good no further seizure activity has been noticed no vomiting or diarrhea she is currently 96% on room air patient did have a white count of 6.6 creatinine 0.66 chest x-ray from yesterday morning no acute pulmonary process Objective - Vital Signs Vital signs: Vital Signs Temp 101.0 F H 09/21/24 12:00 Pulse 123 H 09/21/24 12:00 Resp 20 09/21/24 12:00 BP 106/72 09/21/24 12:00 Pulse Ox 96 09/21/24 12:00 FiO2 Intake & Output 09/20/24 09/21/24 09/21/24 18:59 06:59 18:59 Intake Total 935 1320 900 Output Total 480 1190 380 Balance 455 130 520 Weight 38.555 kg 43.3 kg Intake: IV 875 950 650 Potassium Chloride 10 meq 200 In Water For Injection 1 100ml.bag @ 100 mls/hr IVPB Q1H JACQUELIN Rx#: [id number] Sodium Chloride 0.9% 1, 750 825 450 000 ml @ 75 mls/hr IV . [id number] JACQUELIN Rx#:[id number] Vancomycin 500 mg In 125 125 Sodium Chloride 0.9% 250 ml @ 125 mls/hr IVPB Q12H JACQUELIN Rx#:[id number] Oral 0 50 Tube Feeding 60 230 190 Other 90 60 Output: Urine 480 1190 380 Other: Voiding Method Ileal Conduit (Right) Ileal Conduit (Right) Ileal Conduit (R ight) - Exam GENERAL DESCRIPTION: Middle-age female lying in bed in no distress RESPIRATORY SYSTEM: Unlabored breathing , decreased breath sounds at bases HEART: S1 S2 regular rate and rhythm , ABDOMEN: Soft , no tenderness EXTREMITIES: No edema feet - Labs CBC & Chem 7: 09/21/24 05:47 09/21/24 05:47 Labs: Abnormal Lab Results - Last 24 Hours (Table) 09/21/24 09/21/24 09/21/24 Range/Units 05:47 05:47 12:04 RBC 3.23 L (3.80-5.40) m/uL Hgb 9.4 L D (11.4-16.0) gm/dL Hct 30.1 L (34.0-46.0) % RDW 15.8 H (11.5-15.5) % Chloride 109 H (98-107) mmol/L Glucose 100 H (74-99) mg/dL POC Glucose (mg/dL) 126 H (70-110) mg/dL Assessment and Plan (1) History of ESBL E. coli infection Current Visit: Yes Status: Acute Code(s): Z86.19 - PERSONAL HISTORY OF OTHER INFECTIOUS AND PARASITIC DISEASES SNOMED Code(s): 108348861 (2) UTI (urinary tract infection) Current Visit: Yes Status: Acute Code(s): N39.0 - URINARY TRACT INFECTION, SITE NOT SPECIFIED SNOMED Code(s): 98261769 (3) Stage III pressure ulcer of sacral region Current Visit: No Status: Acute Code(s): L89.153 - PRESSURE ULCER OF SACRAL REGION, STAGE 3 SNOMED Code(s): 53478069566193 (4) MRSA (methicillin resistant staph aureus) culture positive Current Visit: Yes Status: Acute Code(s): Z22.322 - CARRIER OR SUSPECTED CARRIER OF METHICILLIN RESIS STAPH SNOMED Code(s): 953386435 Plan: 1patient presented to hospital with mental status changes did have low-grade fever elevated white count and a positive UA concerning for possible urinary source in this patient who did have a urostomy last admission CT did shows evidence of right-sided hydronephrosis could be the etiology for his recurrent infection 2-urine culture has been requested with initial culture currently growing Yumiko repeat is currently pending 3-local wound care to the sacral wound with santyl followed by moist dressing keep the area of the pressure 4-patient sacral wound cultures are growing MRSA and Yumiko glabrata, CT has been suspicious for osteomyelitis patient is covered with the vancomycin and voriconazole. 5patient is status post Port-A-Cath placement by surgery debridement of the wound on 09/18/2024, 6patient did have episode of unresponsiveness questionable seizure transferred to ICU now with a new fever we will repeat her blood culture chest x-ray from yesterday did not show any new findings also repeat a UA and culture for now we will treat with vancomycin and voriconazole pending completion of the repeat culture Dictation was produced using [employer] dictation software. please excuse any grammatical, word or spelling errors.
[2024-09-21 14:36] LABS: Amorphous Sediment,Urine Rare /hpf; Appearance,Urine Clear (Clear); Bacteria,Urine Rare /hpf; Bilirubin,Urine Negative (Negative); Blood,Urine Negative (Negative); Color,Urine Colorless; Glucose,Urine (UA) Negative (Negative); Hyaline Casts,Urine 1 /lpf (0-2); Ketones,Urine Negative (Negative); Leukocyte Esterase,Urine Moderate (Negative); Mucus,Urine Rare /hpf; Nitrite,Urine Positive (Negative); PH, Urine 6.5 (5.0-8.0); Protein,Urine Trace (Negative); RBC,Urine 8 /hpf (0-5); Urobilinogen,Urine <2.0 mg/dL (<2.0); WBC,Urine 37 /hpf (0-5)
--- NOTE | 2024-09-21 16:07 | P.PN ---
Subjective Progress Note Date: 09/21/24 09/21/2024: Patient was seen for a follow-up. Patient is keeping her eyes closed. She is having some facial twitching, some eyelid twitching. Concerning for seizure, but patient did wake up and answer it appropriately as per examination below. 09/20/2024: Patient was seen for follow-up. Apparently patient has episode of altered mental status at around 4 AM when she became unresponsive. An A-team was called. Patient was transferred to [address] [place] [address] she stayed for 1 hour, impro herrera but at around 6:30 AM, the same team has to be called again. She was unresponsive, obtunded and she was transferred to ICU at around 7:30 AM. She has been unresponsive, not side any word, has NG tube in place. While placing NG tube, she did not fight or wiggled, just extended her head little. 09/17/2024: Patient was seen for a follow-up. Patient is sleeping at this time. Per nursing report, patient is continues to be confused, hearing voices, thinks her and children are there although they are not. No seizures witnessed by the nursing staff. 09/16/2024: Patient was initially seen by Dr. Robi Morris. Please refer to his note for details. Patient is a 39-year-old female with history of seizure disorder and multiple other medical conditions, was brought to the hospital from facility because of need for IV antibiotics for UTI. Patient was seen for a follow-up. Patient denies headache. She admits to having dizziness when she sits up. Patient admits to having some seizure-like episodes in the hospital as well. I spoke to patient's nurse, who states that patient reports of having some seizures although no one has witnessed seizures in the hospital. She herself, or the night nurse have not witnessed any seizures. She still is very confused, thinking that her and kids have visited her although they have not. Objective - Vital Signs Vital signs: Vital Signs Temp 100.0 F H 09/21/24 14:00 Pulse 112 H 09/21/24 14:00 Resp 11 L 09/21/24 14:00 BP 109/73 09/21/24 14:00 Pulse Ox 98 09/21/24 14:00 FiO2 Intake & Output 09/20/24 09/21/24 09/21/24 18:59 06:59 18:59 Intake Total 935 1320 1130 Output Total 480 1190 505 Balance 455 130 625 Weight 38.555 kg 43.3 kg Intake: IV 875 950 800 Potassium Chloride 10 meq 200 In Water For Injection 1 100ml.bag @ 100 mls/hr IVPB Q1H JACQUELIN Rx#: [id number] Sodium Chloride 0.9% 1, 750 825 600 000 ml @ 75 mls/hr IV . [id number] JACQUELIN Rx#:[id number] Vancomycin 500 mg In 125 125 Sodium Chloride 0.9% 250 ml @ 125 mls/hr IVPB Q12H JACQUELIN Rx#:[id number] Oral 0 50 Tube Feeding 60 230 270 Other 90 60 Output: Urine 480 1190 505 Other: Voiding Method Ileal Conduit (Right) Ileal Conduit (Right) Ileal Conduit (Right) - Exam On examination patient is a young female, appears very malnourished, cachectic appearing female. Patient is somewhat somnolent. She was having some mouth twitching, eyelid twitching, concerning for seizure. However on waking her up, patient did wake up and was able to name objects like pen, glasses. She states that she is in [place] in [facility]. She could not tell the month and the year is "8". She knows name of the current president Remy. Her strength of the learning services coordinator is very normal bilaterally. Biceps are normal. No significant myoclonic jerks of outstretched hands. Patient is nonambulatory. Patient has overall reduced muscle mass. - Labs CBC & Chem 7: 09/21/24 05:47 09/21/24 05:47 Labs: Abnormal Lab Results - Last 24 Hours (Table) 09/21/24 09/21/24 09/21/24 Range/Units 05:47 05:47 12:04 RBC 3.23 L (3.80-5.40) m/uL Hgb 9.4 L D (11.4-16.0) gm/dL Hct 30.1 L (34.0-46.0) % RDW 15.8 H (11.5-15.5) % Chloride 109 H (98-107) mmol/L Glucose 100 H (74-99) mg/dL POC Glucose (mg/dL) 126 H (70-110) mg/dL Urine Protein (Negative) Urine Nitrite (Negative) Ur Leukocyte Esterase (Negative) Urine RBC (0-5) /hpf Urine WBC (0-5) /hpf Amorphous Sediment (None) /hpf Urine Bacteria (None) /hpf Urine Mucus (None) /hpf 09/21/24 Range/Units 14:00 RBC (3.80-5.40) m/uL Hgb (11.4-16.0) gm/dL Hct (34.0-46.0) % RDW (11.5-15.5) % Chloride (98-107) mmol/L Glucose (74-99) mg/dL POC Glucose (mg/dL) (70-110) mg/dL Urine Protein Trace H (Negative) Urine Nitrite Positive H (Negative) Ur Leukocyte Esterase Moderate H (Negative) Urine RBC 8 H (0-5) /hpf Urine WBC 37 H (0-5) /hpf Amorphous Sediment Rare H (None) /hpf Urine Bacteria Rare H (None) /hpf Urine Mucus Rare H (None) /hpf Assessment and Plan Assessment: This is a 39-year-old woman with history of epilepsy, Warnicke encephalopathy, recurrent urinary tract infection who was transferred from [facility] for escalation of care of her urinary tract infection since she failed her outpa tient treatment and needed IV antibiotic. Patient was in our facility a few weeks ago and had extensive neurologic workup and had CSF study which was unremarkable for any underlying infection as well as an EEG which was normal. Altered mental status seems due to septic encephalopathy from her uros epsis--mentation had improved in the hospital, but has got worse again last night with episodes of unresponsiveness. Acute urinary tract infection History of epilepsy on Dilantin History of Wernicke encephalopathy History of Mnire's disease History of Raynaud's disease History of recent COVID-19 infection History of chronic indwelling suprapubic catheter Wheelchair-bound History of recurrent urinary tract infection History of GERD History of anxiety History of depression Plan: Patient will be continued on phenytoin 100 mg, 3 times daily. It seems per our last note her outpatient neurologist Dr. Jo has stopped Topamax and placed h er on Dilantin. Topamax can decrease appetite and make weight loss further worse. Patient is off Topamax. Patient had episodes of unresponsiveness couple nights ago. Patient started on Vimpat 100 mg twice daily. Check Dilantin level in the morning. Last Dilantin level 12.2 on 09/19/2024. Patient also has probable metabolic encephalopathy, related to infectious source. Patient is being treated for UTI, and also has sacral wounds concerning for osteomyelitis. Patient on vancomycin and Eraxis. ID following. Patient is status post surgical debridement of the wound on 09/18/2024 Stat EEG was ordered by critical care team. It was abnormal EEG because of presence of background disorganization and slowing, suggestive of moderate to severe encephalopathy. There were presence of intermittent high amplitude sharp appearing waves, which have mostly triphasic quality, although some may have sharp wave quality as well. No electrographic seizure was recorded. Clinical correlation and follow-up is recommended, as clinically indicated. Seizure precautions seizure pads Recommend the patient to follow-up with her outpatient neurologist within 3 weeks Will defer the rest of the medical management to the primary team. Patient has hypokalemia 1.9, now improved 3.6. Patient is exhibiting some repetitive mouth and eye movements. We will repeat EEG in the morning. Dr. Robi Morris to resume neurology service in the morning.
--- NOTE | 2024-09-21 16:21 | CT ---
EXAMINATION TYPE: CT brain wo con DATE OF EXAM: 09/21/2024 4:03 PM COMPARISON: Previous CT head study 08/27/2024.. CLINICAL INDICATION: Female, 39 years old with history of change in mentation, Change in mental statu s TECHNIQUE: Brain: Axial CT images of the brain were obtained with coronal and sagittal reformats created and rev iewed. Contrast used: None. Oral contrast used: None. CT DLP: 1098.4 mGycm, Automated exposure control for dose reduction was used. FINDINGS: Brain: Extra-axial spaces: No abnormal extra-axial fluid collections. Ventricular system: Within normal limits Cerebral parenchyma: No acute intraparenchymal hemorrhage or mass effect. The finn-white junction is well differentiated. Cerebellum: Unremarkable. Mass effect: No evidence of midline shift. Intracranial vasculature: unremarkable Soft tissues: Normal. Calvarium/osseous structures: No depressed skull fracture. Paranasal sinuses and mastoid air cells: Mild scattered paranasal sinus disease. Visualized orbits: Orbital contents are intact. IMPRESSION: No acute intracranial process. [facility], , 09/21/2024 4:19 PM
[2024-09-21 18:08] LABS: Glucose,Whole Blood 110 mg/dL (70-110)
[2024-09-22 00:10] LABS: Glucose,Whole Blood 128 mg/dL (70-110)
--- NOTE | 2024-09-22 01:21 | PN ---
PROGRESS NOTE DATE OF SERVICE: 09/21/2024 SUBJECTIVE: This is a 39-year-old woman, who was admitted with infected stage 3 pressure ulcer and also MRSA, had some change in mental status. The patient had abnormal movement of the lip and head also. The EEG was abnormal, but showing moderate to severe abnormality. No seizure or foci was noted. The most recent chest x-ray which was done yesterday, which I reviewed personally showed no acute abnormality and CT brain is not available. Otherwise, lab nicolas, hemoglobin is 9.4. UA shows multiple abnormalities and culture showed Yumiko albicans, Yumiko glabrata, and Yumiko tropicalis. The patient is on Vfend with antifungal coverage. PAST MEDICAL HISTORY: Reviewed. REVIEW OF SYSTEMS: Could not be taken. CURRENT MEDICATIONS: Reviewed. PHYSICAL EXAMINATION: VITAL SIGNS: Pulse is 112, blood pressure 109/76, respirations 11. HEENT: Conjunctivae normal. NECK: No JVD. CARDIOVASCULAR: S1, S2. RESPIRATIONS: Breath sounds diminished at the bases. Bilateral scattered rhonchi and crackles. ABDOMEN: Soft, nontender. NERVOUS SYSTEM: Nonfocal. LABORATORY DATA: Hemoglobin 9.4. ASSESSMENT: 1. Infected stage III pressure ulcer with possible sepsis, change in mental status, metabolic encephalopathy. 2. Continued fever. 3. Culture growing methicillin-resistant Staphylococcus aureus as well as Yumiko. 4. Possible underlying osteomyelitis. 5. Acute urinary tract infection. 6. Severe hypokalemia. 7. Multiple medical issues. 8. History of seizure disorder and abnormal movements. RECOMMENDATIONS: Recommend to continue current management and continue symptomatic treatment. The patient is on lacosamide. Otherwise, I recommend repeat cultures. CT of the brain. Closely follow with Infectious Disease, Neurology, and Pulmonary. Prognosis guarded because of multiple complex medical issues as mentioned earlier. Further recommendations to follow. MMODL / IJN: [id number] /
[2024-09-22 05:05] LABS: Basophils % (A) 0 %; Eosinophils # (A) 0.2 k/uL (0-0.7); Eosinophils % (A) 3 %; HCT 30.5 % (34.0-46.0); HGB 9.3 gm/dL (11.4-16.0); Hypochromasia Moderate; Lymphocytes # (A) 1.3 k/uL (1.0-4.8); Lymphocytes % (A) 22 %; MCH 29.3 pg (25.0-35.0); MCHC 30.4 g/dL (31.0-37.0); MCV 96.3 fL (80.0-100.0); Mean Platelet Volume 7.8; Monocytes # (A) 0.3 k/uL (0-1.0); Monocytes % (A) 5 %; Neutrophils # (A) 4.2 k/uL (1.3-7.7); Neutrophils % (A) 68 %; Platelet Count 193 k/uL (150-450); Poikilocytosis Slight; RBC 3.17 m/uL (3.80-5.40); RDW 15.9 % (11.5-15.5); WBC 6.1 k/uL (3.8-10.6)
[2024-09-22 05:09] LABS: African American GFR (CKD) >90 (>60 ml/min/1.73 sqM); Anion Gap 2 mmol/L; Blood Urea Nitrogen 11 mg/dL (7-17); Calcium 8.4 mg/dL (8.4-10.2); Carbon Dioxide 29 mmol/L (22-30); Chloride 111 mmol/L (98-107); Glucose 107 mg/dL (74-99); Non-African American GFR(CKD) >90 (>60 ml/min/1.73 sqM); Potassium 3.5 mmol/L (3.5-5.1); Sodium 142 mmol/L (137-145)
[2024-09-22 06:05] LABS: Glucose,Whole Blood 108 mg/dL (70-110)
[2024-09-22] MEDS: POTASSIUM BICARBONATE/CIT AC 20 MEQ TABLET.EFF NG-TUBE SCH (06:12)
[2024-09-22 11:49] LABS: Glucose,Whole Blood 135 mg/dL (70-110)
--- NOTE | 2024-09-22 12:41 | P.PN ---
Subjective Progress Note Date: 09/22/24 I am following up with patient and last seen was on 09/12/2024. Please refer to Dr. Lindo's notes for further details. The patient has AMS and it is felt due to delirium. Currently she has NG tube but is following commands appropriately. Objective - Vital Signs Vital signs: Vital Signs Temp 98.3 F 09/22/24 08:00 Pulse 114 H 09/22/24 11:00 Resp 16 09/22/24 11:00 BP 116/86 09/22/24 11:00 Pulse Ox 98 09/22/24 11:00 FiO2 Intake & Output 09/21/24 09/22/24 09/22/24 18:59 06:59 18:59 Intake Total 1720 1470 605 Output Total 730 985 480 Balance 990 485 125 Weight 39.8 kg Intake: IV 1200 900 375 Potassium Chloride 10 meq 200 In Water For Injection 1 100ml.bag @ 100 mls/hr IVPB Q1H [facility] Rx#: [id number] Sodium Chloride 0.9% 1, 750 900 375 000 ml @ 75 mls/hr IV . [id number] [facility] Rx#:[id number] Vancomycin 500 mg In 250 Sodium Chloride 0.9% 250 ml @ 125 mls/hr IVPB Q12H [facility] Rx#:[id number] Tube Feeding 430 480 200 Other 90 90 30 Output: Urine 730 985 480 Other: Voiding Method Ileal Conduit (Right) Ileal Conduit (Right) Ileal Conduit (Right) - Exam General: Lying in bed and is not in acute distress. HENT: +ve NG tube. Neurology: The patient is moderately drowsy but is awakeable to voice. She is oriented to self, place. Correctly stated time with options. She following simple commands. No facial weakness. Motor: Limited but was able to briefly raise uppers above gravity. - Labs CBC & Chem 7: 09/22/24 04:45 09/22/24 04:45 Labs: Abnormal Lab Results - Last 24 Hours (Table) 09/21/24 09/22/24 09/22/24 Range/Units 14:00 00:09 04:45 RBC (3.80-5.40) m/uL Hgb (11.4-16.0) gm/dL Hct (34.0-46.0) % MCHC (31.0-37.0) g/dL RDW (11.5-15.5) % Chloride 111 H (98-107) mmol/L Glucose 107 H (74-99) mg/dL POC Glucose (mg/dL) 128 H (70-110) mg/dL Urine Protein Trace H (Negative) Urine Nitrite Positive H (Negative) Ur Leukocyte Esterase Moderate H (Negative) Urine RBC 8 H (0-5) /hpf Urine WBC 37 H (0-5) /hpf Amorphous Sediment Rare H (None) /hpf Urine Bacteria Rare H (None) /hpf Urine Mucus Rare H (None) /hpf 09/22/24 09/22/24 Range/Units 04:45 11:49 RBC 3.17 L (3.80-5.40) m/uL Hgb 9.3 L (11.4-16.0) gm/dL Hct 30.5 L (34.0-46.0) % MCHC 30.4 L (31.0-37.0) g/dL RDW 15.9 H (11.5-15.5) % Chloride (98-107) mmol/L Glucose (74-99) mg/dL POC Glucose (mg/dL) 135 H (70-110) mg/dL Urine Protein (Negative) Urine Nitrite (Negative) Ur Leukocyte Esterase (Negative) Urine RBC (0-5) /hpf Urine WBC (0-5) /hpf Amorphous Sediment (None) /hpf Urine Bacteria (None) /hpf Urine Mucus (None) /hpf Microbiology - Last 24 Hours (Table) 09/21/24 16:20 Gram Stain - Preliminary Buttock 09/20/24 15:17 Blood Culture - Preliminary Blood Assessment and Plan Assessment: This is a 39-year-old woman with history of epilepsy, Warnicke encephalopathy, recurrent urinary tract infection who was transferred from [facility] for escalation of care of her urinary tract infection since she failed her outpatient treatment and needed IV antibiotic. Patient was in our facility a few weeks ago and had extensive neurologic workup and had CSF study which was unremarkable for any underlying infection as well as an EEG which was normal. Altered mental status seems due to septic encephalopathy from her urosepsis--mentation had improved in the hospital, but has got worse again last night with episodes of unresponsiveness. Acute urinary tract infection History of epilepsy on Dilantin History of Wernicke encephalopathy History of Mnire's disease History of Raynaud's disease History of recent COVID-19 infection History of chronic indwelling suprapubic catheter Wheelchair-bound History of recurrent urinary tract infection History of GERD History of anxiety History of depression Plan: Patient will be continued on phenytoin 100 mg, 3 times daily. It seems per our last note her outpatient neurologist Dr. Jo has stopped Topamax and placed her on Dilantin. Topamax can decrease appetite and make weight loss further worse. Patient is off Topamax. Patient had episodes of unresponsiveness couple nights ago. Patient started on Vimpat 100 mg twice daily per Dr. Lindo. Check Dilantin level in the morning. Last Dilantin level 12.2 on 09/19/2024. Patient also has probable metabolic encephalopathy, related to infectious source. Patient is being treated for UTI, and also has sacral wounds concerning for osteomyelitis. Patient on vancomycin and Eraxis. ID following. Patient is status post surgical debridement of the wound on 09/18/2024 Stat EEG was ordered by critical care team. It was abnormal EEG because of presence of background disorganization and slowing, suggestive of moderate to severe encephalopathy. There were presence of intermittent high amplitude sharp appearing waves, which have mostly triphasic quality, although some may have sharp wave quality as well. No electrographic seizure was recorded. Clinical correlation and follow-up is recommended, as clinically indicated. Patient is exhibiting some repetitive mouth and eye movements. She had repeat EEG today requested by Dr. Lindo and pending official report. Seizure precautions seizure pads Recommend the patient to follow-up with her outpatient neurologist within 3 weeks Will defer the rest of the medical management to the primary team. Patient has hypokalemia 1.9, now improved 3.6. Time with Patient: Less than 30
[2024-09-22 13:22] VITALS: BMI 19.0
--- NOTE | 2024-09-22 15:47 | P.PN ---
Subjective Progress Note Date: 09/22/24 Principal diagnosis: Acute sepsis with and acute mental status change possibly postictal and history of alcoholism and Warnicke's encephalopathy. This is a 39-year-old female patient who was found to be completely unresponsive this morning and based on that, the patient was transferred to the intensive care unit for further monitoring. At time of arrival, the patient was afebrile, hemodynamically stable with a pulse ox of 99% on room air oxygen. The patient was in A team evaluation this morning and was reported that the patient was having seizure activity. Subsequently, she became completely unresponsive. Based on that, the patient was transferred to the ICU. Noted the patient was taken Dilantin for history of seizures and her levels were essentially therapeutic. She is known to have seizure disorder. Neurology was asked to reevaluate the patient. The patient was given IV Vimpat 100 mg and started on a dose of 100 mg every 12 hours in addition to Dilantin and EEG is currently in progress. The patient is chronically debilitated. She has history of alcoholism. She has history of Wernicke's encephalopathy related to vitamin be deficiency. She has also had frequent urine tract infections and the patient currently has a urostomy in place. She seems to be chronically malnourished with a body mass index of 18.4. She also has a stage IV pressure ulcer in the coccyx that was debrided recently by general surgery. Sacral CAT scan also showed possibility of osteomyelitis. For now, the white cell count is at 8.1, hemoglobin 11.4 and a platelet count of 192. Sodium is at 140, potassium is at 3.4, chloride is at 109 with a bicarb of 29, BUN is 8 with a creatinine of 0.7. Normal LFTs. Troponins are negative. The most recent urine culture is positive for Yumiko tropicalis. The wound culture postdebridement showed MRSA and Yumiko albicans and glabrata. Antibiotic coverage per ID includes a combination of voriconazole and vancomycin. She is on normal saline at rate of 75 cc an hour. Chest x-ray was done this morning and it shows no acute cardiopulmonary process. NG tube placed. On 09/21/2024, the patient is being seen for a follow-up. The patient is awake and she is communicating. She is a bit lethargic. There is obvious improvement in the patient's mentation over the past 24 hours. No seizure activity has been noted and the patient remains on a combination of Dilantin and Vimpat. Oral intake is quite diminished and the patient has an NG tube in place and the patient receiving enteral feeding for nutritional support. EEG was done yesterday and the EEG findings were abnormal with background disorganization and slowing suggestive of moderate to severe encephalopathy. At the same time, there was intermittent high amplitude sharp waves mostly triphasic quality and some may have sharp wave quality as well. No active seizures noted. Neurology is on the case. Meanwhile, the patient is hemodynamically stable. He is on 2 L of oxygen by nasal cannula. Her white cell count is 6.6 with a hemoglobin 9.4 and a platelet count of 206. BUN is 8 with a creatinine of 0.6 and a sodium levels at 143. She remains on Vfend. She remains on vancomycin. Rest of the medications are essentially unchanged. She is on heparin subcu for DVT prophylaxis. She is on vitamin B1 and B6 supplements. Patient was seen today on 09/22/2024, patient is awake, communicating, but a bit lethargic. Her mental status is basically about the same, no seizure activity in the last 24 hours according to nurses taking care of the patient. Patient is on room air, she has a nasogastric tube in place, she is receiving treatment in the form of vancomycin and voriconazole. WBC count is 6.1 hemoglobin 9.3 electrolytes are normal renal profile is normal Objective - Vital Signs Vital signs: Vital Signs Temp 98.4 F 09/22/24 12:00 Pulse 120 H 09/22/24 15:00 Resp 16 09/22/24 15:00 BP 120/85 09/22/24 15:00 Pulse Ox 96 09/22/24 15:00 FiO2 Intake & Output 09/21/24 09/22/24 09/22/24 18:59 06:59 18:59 Intake Total 1720 1470 1095 Output Total 730 985 990 Balance 990 485 105 Weight 39.8 kg 39.8 kg Intake: IV 1200 900 675 Potassium Chloride 10 meq 200 In Water For Injection 1 100ml.bag @ 100 mls/hr IVPB Q1H [facility] Rx#: [id number] Sodium Chloride 0.9% 1, 750 900 675 000 ml @ 75 mls/hr IV . [id number] [facility] Rx#:[id number] Vancomycin 500 mg In 250 Sodium Chloride 0.9% 250 ml @ 125 mls/hr IVPB Q12H [facility] Rx#:[id number] Tube Feeding 430 480 360 Other 90 90 60 Output: Urine 730 985 990 Other: Voiding Method Ileal Conduit (Right) Ileal Conduit (Right) Ileal Conduit (Right) - Exam Gen: 59-year-old female in no distress, on room air, lethargic but follows simple instructions and answers questions properly. HEENT: Head is atraumatic, normocephalic. Pupils equal, round. Sclerae is anicteric. NECK: Supple. No JVD. No lymphadenopathy. No thyromegaly. LUNGS: Decreased breath sound bilaterally no rhonchi no wheezes HEART: S1, S2 are muffled ABDOMEN: Soft. Bowel sounds are present. No masses. No tenderness. EXTREMITIES: No pedal edema. No calf tenderness. NEUROLOGICAL: Patient is awake, alert and oriented x 2. Generally weak. - Labs CBC & Chem 7: 09/22/24 04:45 09/22/24 04:45 Labs: Abnormal Lab Results - Last 24 Hours (Table) 09/22/24 09/22/24 09/22/24 Range/Units 00:09 04:45 04:45 RBC 3.17 L (3.80-5.40) m/uL Hgb 9.3 L (11.4-16.0) gm/dL Hct 30.5 L (34.0-46.0) % MCHC 30.4 L (31.0-37.0) g/dL RDW 15.9 H (11.5-15.5) % Chloride 111 H (98-107) mmol/L Glucose 107 H (74-99) mg/dL POC Glucose (mg/dL) 128 H (70-110) mg/dL 09/22/24 Range/Units 11:49 RBC (3.80-5.40) m/uL Hgb (11.4-16.0) gm/dL Hct (34.0-46.0) % MCHC (31.0-37.0) g/dL RDW (11.5-15.5) % Chloride (98-107) mmol/L Glucose (74-99) mg/dL POC Glucose (mg/dL) 135 H (70-110) mg/dL Microbiology - Last 24 Hours (Table) 09/21/24 16:20 Gram Stain - Preliminary Buttock 09/20/24 15:17 Blood Culture - Preliminary Blood Assessment and Plan Assessment: Impression: Altered mental status, likely postictal following the seizure. urinary tract infection with Yumiko tropicalis. Stage IV coccyx wound, post debredment and cultures are positive for yumiko and MRSA , currently on vancomycin and voriconazole. History of epilepsy on Dilantin with therapeutic levels. History of alcoholism and Wernicke encephalopathy Mnire's disease Raynaud's disease Previous history of COVID-19 infection Urostomy (functional), constructed due to recurrent UTIs Wheelchair-bound History of recurrent urinary tract infection GERD History of anxiety History of depression Recommendation: Continue antibiotics and antifungal as per infectious disease on the case Continue seizure medications/antiepileptics Continue IV fluid at 75 cc/h Continue GI DVT prophylaxis Continue enteral feeding/nutritional support Wound care and surgical debridement has been performed Will likely keep in the ICU for the next 24 hours and transfer out of the ICU if no change in the next 24 hours. Patient remains relatively ill with multiple complex issues as noted above Will continue to follow Time with Patient: Less than 30
[2024-09-22 17:45] LABS: Glucose,Whole Blood 139 mg/dL (70-110)
[2024-09-22] MEDS: POTASSIUM BICARBONATE/CIT AC 20 MEQ TABLET.EFF PO SCH (18:11)
--- NOTE | 2024-09-22 19:00 | P.PN ---
Subjective Progress Note Date: 09/22/24 This is a pleasant 39 years old female with past medical history of multiple medical problems as below. She was transferred from [facility] for possible UTI that failed treatment. Patient has history of Warnicke's Korsakoff syndrome and seizures/epilepsy, history of suprapubic catheter which is not present now, neurofibromatosis, Raynaud's disease, legally blind and hearing difficulty, clubfoot and GERD. Patient currently looks confused, she does not know where she is at, she does not remember she came from another hospital or facility, she thinks is 2004 and she does not know the name of the president and she does not know why she is here. Other than then she looks, pleasant and relaxed sitting up in bed. Denies any specific complaint to me. Patient also slow to respond. As per records from [facility] she was recently treated for UTI and altered mental status 08/20-08/24. Then she was in the emergency room for altered mental status where she was treated for 2 days with IV fluid and discharged home to return back in 24 hours not eating and drinking. I called the Mr. Thapa over the phone and he told me she has been sick for about a month super tired sleepy, not eating well, not drinking well not doing anything. He states that she has been treated for 2 infection both of them were UTI. She is also had COVID. Prior to that her mentation was more awake and alert and oriented to the surrounding. As per there is no seizure-like activity. Patient is bedbound and not walking since 2019 where she was diagnosed with multiple vitamin deficiency and [facility] including vitamin B1, B6 and B12 deficiency among others. Also patient has been feeling generalized dizziness. He confirms to me she is full code. Patient is tachycardic with heart rate 116, 135 She had a fever of 99.2. Mildly tachypneic with breathing rate around 20. Labs showing leukocytosis which is worsening were 13,000 at [facility] currently 16.6. Sodium is elevated at 149, liver enzymes mildly elevated. INR is unremarkable, troponin is negative. Urine analysis suspicious for infection EKG showing sinus tachycardia at 133. CT of the brain done at [facility] showing no acute process per report. Patient currently on meropenem and normal saline 130 mL/h. Will resume her home medication but we lowered Seroquel from 50 down to 25 and we held her Ambien of 12.5 mg. 09/11 Patient remains confused to time place person. She looks relaxed not in distress, she can follow simple commands, for example when I ask her where the UTI area she points to her urinary bladder. She can tell the name of her Mr. Thapa. She denies headache dizziness weakness or numbness. No abdominal pain. Patient looks lethargic. No abdominal pain. Her right upper quadrant urostomy is in place. Leukocytosis improving yesterday down to 12,000, sodium normalized. Liver e nzymes mildly elevated. Patient currently kept on meropenem. No IV fluid Neurology evaluated the patient and tapering off her Topamax. Dilantin discontinued. Level was less than 3.0. 09/12 Patient today is much better, she knows she is in [place] although she did not know in the hospital. She knew the year 2024 and August. She she know the name of the president. She knows why she has been admitted to the hospital stating she has infection but she thinks it is in the vagina. We explained to the patient it is her UTI. Patient however denies any vaginal symptom no discharge or itching or pain as she explains. No other new complaint. Her leukocytosis significantly improved from 12 down to 4.1, hemoglobin slightly low from 12 down to 10.5 with some elements of hemodilution. Her normal saline was discontinued She remains on meropenem, fluconazole was added because of urine culture showing Yumiko tropicalis. Neurology also following closely with the plan to stop Topamax. 09/13 Patient mentation improving slowly and gradually Neurologist evaluated the patient and tapering off her Topamax while keeping Dilantin and they recommended Vimpat only if she hasmore seizure, however she did not have any seizure today She has a history of ESBL UTI and she finished course of meropenem. Cultures growing Yumiko and currently fluconazole She has evidence of stage III sacral pressure ulcer Also looks infected with culture growing MRSA and patient was placed on IV vancomycin by ID team 09/14 Patient today mentation significantly better, she is up in bed She is on IV vancomycin and fluconazole for MRSA and Yumiko in the culture No breathing problem no chest pain but she is complaining from worse with eating. Patient continues on Protonix, will increase the frequency to twice daily 09/15 Patient seen and examined by me at bedside. Patient mentation improved after stopping her sedatives and treating her wound infection with IV vancomycin. CT sacrum showing possible underlying sacral osteomyelitis. ESR is 7 However patient since yesterday is developing epigastric pain and tenderness which prevent her from eating, therefore we do not to consult surgical team for further evaluation. Also patient currently on IV Protonix. 09/16/2024 Patient is seen in follow-up today with infectious disease following and is continued with local wound care and will require a PICC line on discharge for IV antibiotic therapy. Patient will be going to [facility] on discharge and requires insurance authorization which is currently pending. Patient to continue with local wound care of the sacral region with frequent offloading. General surgery was consulted for abdominal pain which has resolved and will continue patient on current bowel regimen. Patient is afebrile with no reports of chest pain or shortness of breath. 09/17/2024 Patient is seen in follow-up today continues on antibiotics and tentatively was scheduled for PICC line although they feel they are unable to place it because her veins are very frail and tiny and at risk for infiltrating very easily and this was discussed with infectious disease and will consult general surgery and appreciate input and recommendations regarding possible port placement as patient will require prolonged antibiotics and likely outpatient for quite some time as well. Patient's potassium is extremely low at 1.9 and will be replaced per protocol and will follow-up with serial lab draws to monitor improvements. Continue with protocol and will add daily supplements as well. Patient is afebrile with no reports of chest pain or shortness of breath. Patient will be going to [facility] once cleared by consultations. Patient will require insurance authorization which remains pending at this time. 09/18/2024 Patient is seen in follow-up today currently n.p.o. and scheduled to undergo Mediport placement along with debridement of the sacral ulcer with general surgery. Patient's potassium improved post replacement and currently 4.2 today. Continue with daily supplement and also encouraged oral intake once cleared by surgery post intervention today. Plan will be for continued IV antibiotics in the outpatient setting per ID recommendations. Case management is following currently insurance authorization remains pending for [facility]. Will discuss further with consultations regarding discharge planning possibly in the next 24 to 48 hours. Patient is afebrile with no reported chest pain or shortness of breath. 09/19/2024 patient is seen in follow today sleeping although arousable. Patient is status post Mediport placement as well as debridement of the sacral ulcer being fo llowed by general surgery as well as infectious disease. Patient will continue on 6-week of vancomycin, 2 weeks of oral Vfend with close monitoring of Dilantin levels. [facility] has now accepted the patient pending insurance authorization which is submitted at this time. [facility] has declined the patient. Patient is afebrile with no reports of chest pain or shortness of breath. Potassium is improved and will follow-up on repeat labs. Continue with local wound care per general surgery and infectious disease recommendations. 09/22/2024 Patient continues in the ICU with multiple consultations following including neurology. Patient is scheduled to undergo repeat EEG as previous 1 was abnormal although no seizure-like activity noted. Patient continues with right side facial involuntary movements noted and undergoing further neurological workup. Patient reports this twitching is chronic. Patient is lethargic although arousable and is answering questions appropriately. Patient does continue with confusion and baseline is alert with confusion as well. patient is maintained on antibiotics with infectious disease following in the form of Vfend and vancomycin And will continue. Patient also continues on Vimpat as well as Dilantin. Medications being adjusted to IV form as patient is quite lethargic and currently n.p.o. at this time. Preliminary culture showing gram-negative bacilli of the sacral wound. Will await finalized cultures and adjust medications according to ID recommendations. Review of systems: Constitutional: reports of fatigue, no fever, or chills Cardiovascular: No reports of chest pain or palpitations Respiratory: No reports of shortness of breath or cough GI: No reports of nausea, vomiting, or diarrhea, unable to swallow due to lethargy : No reports of dysuria or retention Neurovascular: reports of weakness, patient reports bedbound All medications have been reviewed Physical exam: Gen: This is a 39-year-old female who is asleep although arousable although extremely lethargic and falls asleep easily, alert and oriented x 12, baseline, confused, appears older than stated age, ill-appearing, twitching and tremors noted of the right facial area on exam HEENT: Head is atraumatic, normocephalic. Pupils equal, round. Sclerae is anict camille. NECK: Supple. No JVD. No lymphadenopathy. No thyromegaly. LUNGS: Diminished breath sounds bilaterally otherwise clear to auscultation. No wheezes or rhonchi. No intercostal retractions. HEART: S1, S2 are muffled ABDOMEN: Soft. Bowel sounds are present. No masses. No tenderness. EXTREMITIES: No pedal edema. No calf tenderness. NEUROLOGICAL: Patient is difficult to assess, lethargic although arousable but fatigues easily. Diffusely weak Assessment: Altered mental status most likely toxic/metabolic encephalopathy. Possibly secondary to seizures, undergoing neurological workup Infected Stage III pressure ulcer of the right buttock area with culture growing MRSA, . Sacral CT showing possible underlying osteomyelitis, status postsurgical debridement on 09/18/2024. Cultures growing gram-negative bacilli Acute urinary tract infection, recurrent likely related to urostomy in the right upper quadrant. Culture growing Yumiko which was likely the source of inf ection. Severe hypokalemia, possibly secondary to poor oral intake, replaced and improved and was 1.9, currently 4.2 sepsis, present on admission secondary to stage III pressure ulcer along with UTI with tachycardia tachypnea and fever and leukocytosis, improved Hypernatremia, resolved History of seizure disorder History of hysterectomy, gastric bypass procedure and urostomy Drug allergy to penicillin causing anaphylaxis History of Warnicke's Korsakoff syndrome History of small bowel obstruction and fecal impaction Debility and mostly bedbound History of peptic ulcer disease Neurofibromatosis Drains disease Legally blind Hearing difficulty History of GERD Moderate calorie protein malnutrition with a BMI of 18.4 GI prophylaxis DVT prophylaxis Full code Plan: Patient being followed by infectious disease as well as general surgery and is status post Mediport placement along with debridement of stage III sacral ulcer. Patient will continue on vancomycin and Vfend in the outpatient setting. Patient has received a PICC line Patient had further unresponsiveness and possible seizure-like activity undergoing further neurological workup patient was started on Vimpat and is continued on Dilantin. Repeat EEG ordered today and pending at this time. Patient had CT brain yesterday showing no acute process. Follow-up on repeat labs and replace electrolytes per protocol, monitor Dilantin level Wound cultures from 09/21/2024 of the wound showing gram-negative bacilli and will continue on antibiotics with infectious disease following. Adjust antibiotics accordingly. Continue with wound care Due to multiple complex medical issues, overall prognosis is guarded The impression and plan of care has been dictated by Sera Cottrell, Nurse Practitioner as directed. Dr. Asim MD I have performed a history and examination and MDM of this patient, discussed the same with the dictator, and agree with the dictator's assessment and plan as written ,documented as a scribe. Based on total visit time, I have performed more than 50% of the visit. Objective - Vital Signs Vital signs: Vital Signs Temp 99.0 F 09/22/24 16:00 Pulse 129 H 09/22/24 18:00 Resp 20 09/22/24 18:00 BP 136/97 09/22/24 18:00 Pulse Ox 95 09/22/24 18:00 FiO2 Intake & Output 09/21/24 09/22/24 09/22/24 18:59 06:59 18:59 Intake Total 1720 1470 1720 Output Total 445 500 9147 Balance 990 485 570 Weight 39.8 kg 39.8 kg Intake: IV 7843 955 2707 Potassium Chloride 10 meq 200 In Water For Injection 1 100ml.bag @ 100 mls/hr IVPB Q1H JACQUELIN Rx#: [id number] Sodium Chloride 0.9% 1, 750 900 900 000 ml @ 75 mls/hr IV . [id number] JACQUELIN Rx#:[id number] Vancomycin 500 mg In 250 250 Sodium Chloride 0.9% 250 ml @ 125 mls/hr IVPB Q12H JACQUELIN Rx#:[id number] Tube Feeding 430 480 480 Other 90 90 90 Output: Urine 333 459 8940 Other: Voiding Method Ileal Conduit (Right) Ileal Conduit (Right) Ileal Conduit (Right) - Labs CBC & Chem 7: 09/22/24 04:45 09/22/24 04:45 Labs: Abnormal Lab Results - Last 24 Hours (Table) 09/22/24 09/22/24 09/22/24 Range/Units 00:09 04:45 04:45 RBC 3.17 L (3.80-5.40) m/uL Hgb 9.3 L (11.4-16.0) gm/dL Hct 30.5 L (34.0-46.0) % MCHC 30.4 L (31.0-37.0) g/dL RDW 15.9 H (11.5-15.5) % Chloride 111 H (98-107) mmol/L Glucose 107 H (74-99) mg/dL POC Glucose (mg/dL) 128 H (70-110) mg/dL 09/22/24 09/22/24 Range/Units 11:49 17:44 RBC (3.80-5.40) m/uL Hgb (11.4-16.0) gm/dL Hct (34.0-46.0) % MCHC (31.0-37.0) g/dL RDW (11.5-15.5) % Chloride (98-107) mmol/L Glucose (74-99) mg/dL POC Glucose (mg/dL) 135 H 139 H (70-110) mg/dL Microbiology - Last 24 Hours (Table) 09/21/24 16:20 Gram Stain - Preliminary Buttock Wound Culture - Preliminary Gram Neg Bacilli Gram Neg Bacilli#2 09/20/24 15:17 Blood Culture - Preliminary Blood
--- NOTE | 2024-09-22 23:12 | P.PN ---
Subjective Progress Note Date: 09/22/24 Principal diagnosis: Reason for follow-up is UTI and sacral pressure ulcer Patient is a 39-year-old female with multiple comorbidities including fibromyalgia reflux pneumonia seizure disorder patient also have a urostomy and recent multiple admission to the hospital for a UTI patient has been transferred to [facility] from [facility] where patient apparently has been diagnosed with a UTI failing outpatient treatment. Patient is status post Port-A-Cath placement and debridement of the sacral wound by general surgery on 09/18/2024. On today's evaluation that is 09/22/2024, patient did have resolution of her fever and has been afebrile this morning, patient is breathing comfortably and is currently on room air, patient denies having any chest pain and cough, no vomiting or diarrhea has been reported. Patient white count 6.1, creatinine 0.60, cultures obtained from the sacral wound ordered by admitting is now growing gram-negative previous culture were MRSA UA has been positive and also growing gram-negative Objective - Vital Signs Vital signs: Vital Signs Temp 98.3 F 09/22/24 08:00 Pulse 108 H 09/22/24 09:00 Resp 17 09/22/24 09:00 BP 106/89 09/22/24 09:00 Pulse Ox 93 L 09/22/24 09:00 FiO2 Intake & Output 09/21/24 09/22/24 09/22/24 18:59 06:59 18:59 Intake Total 1720 1470 335 Output Total 730 985 320 Balance 990 485 15 Weight 39.8 kg Intake: IV 1200 900 225 Potassium Chloride 10 meq 200 In Water For Injection 1 100ml.bag @ 100 mls/hr IVPB Q1H JACQUELIN Rx#: [id number] Sodium Chloride 0.9% 1, 750 900 225 000 ml @ 75 mls/hr IV . [id number] JACQUELIN Rx#:[id number] Vancomycin 500 mg In 250 Sodium Chloride 0.9% 250 ml @ 125 mls/hr IVPB Q12H JACQUELIN Rx#:[id number] Tube Feeding 430 480 80 Other 90 90 30 Output: Urine 730 985 320 Other: Voiding Method Ileal Conduit (Right) Ileal Conduit (Right) Ileal Conduit ( Right) - Exam GENERAL DESCRIPTION: Middle-age female lying in bed in no distress RESPIRATORY SYSTEM: Unlabored breathing , decreased breath sounds at bases HEART: S1 S2 regular rate and rhythm , ABDOMEN: Soft , no tenderness EXTREMITIES: No edema feet - Labs CBC & Chem 7: 09/22/24 04:45 09/22/24 04:45 Labs: Abnormal Lab Results - Last 24 Hours (Table) 09/21/24 09/21/24 09/22/24 Range/Units 12:04 14:00 00:09 RBC (3.80-5.40) m/uL Hgb (11.4-16.0) gm/dL Hct (34.0-46.0) % MCHC (31.0-37.0) g/dL RDW (11.5-15.5) % Chloride (98-107) mmol/L Glucose (74-99) mg/dL POC Glucose (mg/dL) 126 H 128 H (70-110) mg/dL Urine Protein Trace H (Negative) Urine Nitrite Positive H (Negative) Ur Leukocyte Esterase Moderate H (Negative) Urine RBC 8 H (0-5) /hpf Urine WBC 37 H (0-5) /hpf Amorphous Sediment Rare H (None) /hpf Urine Bacteria Rare H (None) /hpf Urine Mucus Rare H (None) /hpf 09/22/24 09/22/24 Range/Units 04:45 04:45 RBC 3.17 L (3.80-5.40) m/uL Hgb 9.3 L (11.4-16.0) gm/dL Hct 30.5 L (34.0-46.0) % MCHC 30.4 L (31.0-37.0) g/dL RDW 15.9 H (11.5-15.5) % Chloride 111 H (98-107) mmol/L Glucose 107 H (74-99) mg/dL POC Glucose (mg/dL) (70-110) mg/dL Urine Protein (Negative) Urine Nitrite (Negative) Ur Leukocyte Esterase (Negative) Urine RBC (0-5) /hpf Urine WBC (0-5) /hpf Amorphous Sediment (None) /hpf Urine Bacteria (None) /hpf Urine Mucus (None) /hpf Microbiology - Last 24 Hours (Table) 09/21/24 16:20 Gram Stain - Preliminary Buttock 09/20/24 15:17 Blood Culture - Preliminary Blood Assessment and Plan (1) History of ESBL E. coli infection Current Visit: Yes Status: Acute Code(s): Z86.19 - PERSONAL HISTORY OF OTHER INFECTIOUS AND PARASITIC DISEASES SNOMED Code(s): 524254741 (2) UTI (urinary tract infection) Current Visit: Yes Status: Acute Code(s): N39.0 - URINARY TRACT INFECTION, SITE NOT SPECIFIED SNOMED Code(s): 74598467 (3) Stage III pressure ulcer of sacral region Current Visit: No Status: Acute Code(s): L89.153 - PRESSURE ULCER OF SACRAL REGION, STAGE 3 SNOMED Code(s): 89687102107746 (4) MRSA (methicillin resistant staph aureus) culture positive Current Visit: Yes Status: Acute Code(s): Z22.322 - CARRIER OR SUSPECTED CA RRIER OF METHICILLIN RESIS STAPH SNOMED Code(s): 983659786 Plan: 1patient presented to hospital with mental status changes did have low-grade fever elevated white count and a positive UA concerning for possible urinary source in this patient who did have a urostomy last admission CT did shows evidence of right-sided hydronephrosis could be the etiology for his recurrent infection 2-urine culture has been requested with initial culture currently growing Yumiko repeat is currently pending 3-local wound care to the sacral wound with santyl followed by moist dressing keep the area of the pressure 4-patient sacral wound cultures are growing MRSA and Yumiko glabrata, CT has been suspicious for osteomyelitis patient is covered with the vancomycin and voriconazole. 5patient is status post Port-A-Cath placement by surgery debridement of the wound on 09/18/2024, 6patient did have a new fever now with the cultures obtained from the sacral wound as the urine is growing gram-negative we will add cefepime empirically while waiting for the culture to finalize and monitor clinical course closely Dictation was produced using [employer] dictation software. please excuse any grammatical, word or spelling errors. Time with Patient: Less than 30
[2024-09-22 23:15] LABS: Glucose,Whole Blood 111 mg/dL (70-110)
[2024-09-22] MEDS: CEFEPIME 2 GM in SODIUM CHLORIDE 0.9% 100 ML IVPB SCH (23:30)
--- NOTE | 2024-09-23 00:09 | EEG ---
ELECTROENCEPHALOGRAM REPORT CLINICAL HISTORY: This is a 39-year-old woman with a history of epilepsy, who has altered mental status. A video EEG is obtained to evaluate for seizure epileptiform activity. Date of service: Start time 08:36 and end 09:37 both on 09/22/2024. RELEVANT MEDICATIONS: 1. Dilantin. 2. Vimpat. 3. Gabapentin. EEG TYPE: This is a routine 21-channel EEG with video using the 10/20 electrode placement system. DESCRIPTION: Wakefulness is obtained. During the awake state, the background consists of low-to- moderate voltage of 7 to 8 Hz intermixed with delta activity. There is no focal slowing. There is no physiological stage 2 sleep architecture. Interictal and ictal, there is sharply contoured activity over the left temporal region. There are no clear discharges or no seizure is noted during the study. ACTIVATION PROCEDURE: Photic stimulation did not evoke a posterior driving response. There is no abnormality during the photic stimulation. Hyperventilation is not performed. CLINICAL INTERPRETATION: This is an abnormal 1 hour EEG. The background slowing is suggestive of moderate encephalopathy. There is no focal slowing, epileptiform discharge, or seizure on the EEG. There is sharply contoured activity over the left temporal which can increase the risk for cortical irritability. Clinical correlation is recommended. MMODL / IJN: [id number] / CHANTAL
[2024-09-23 03:33] LABS: African American GFR (CKD) >90 (>60 ml/min/1.73 sqM); Anion Gap 1 mmol/L; Blood Urea Nitrogen 13 mg/dL (7-17); Calcium 9.1 mg/dL (8.4-10.2); Carbon Dioxide 34 mmol/L (22-30); Chloride 107 mmol/L (98-107); Glucose 82 mg/dL (74-99); Non-African American GFR(CKD) >90 (>60 ml/min/1.73 sqM); Potassium 3.6 mmol/L (3.5-5.1); Sodium 142 mmol/L (137-145)
[2024-09-23 04:15] LABS: Basophils # (A) 0.03 10*3/uL (0.00-0.10); Basophils % (A) 0.5 %; Eosinophils # (A) 0.24 10*3/uL (0.04-0.35); Eosinophils % (A) 4.4 %; HCT 30.5 % (37.2-46.3); HGB 9.4 g/dL (12.0-15.0); Lymphocytes % (A) 29.2 %; MCH 30.3 pg (27.0-32.0); MCHC 30.8 g/dL (32.0-37.0); MCV 98.4 fL (80.0-97.0); Mean Platelet Volume 10.1 fL (9.5-12.2); Monocytes # (A) 0.31 10*3/uL (0.20-1.00); Monocytes % (A) 5.7 %; Neutrophils # (A) 3.29 10*3/uL (1.80-7.70); Platelet Count 204 10*3/uL (140-440); RDW 14.3 % (11.5-14.5); WBC 5.48 10*3/uL (4.50-10.00)
[2024-09-23] MEDS: VANCOMYCIN TROUGH DUE 1 EACH MISC MISCELLANE ONE (05:07)
[2024-09-23 05:57] LABS: Glucose,Whole Blood 98 mg/dL (70-110)
[2024-09-23] MEDS: POTASSIUM BICARBONATE/CIT AC 20 MEQ TABLET.EFF NG-TUBE SCH (06:14)
[2024-09-23 12:21] LABS: Glucose,Whole Blood 109 mg/dL (70-110)
[2024-09-23 12:30] LABS: Glucose,Whole Blood 111 mg/dL (70-110)
--- NOTE | 2024-09-23 13:16 | P.PN ---
Subjective Progress Note Date: 09/23/24 Principal diagnosis: Reason for follow-up is UTI and sacral pressure ulcer Patient is a 39-year-old female with multiple comorbidities including fibromyalgia reflux pneumonia seizure disorder patient also have a urostomy and recent multiple admission to the hospital for a UTI patient has been transferred to [facility] from [facility] where patient apparently has been diagnosed with a UTI failing outpatient treatment. Patient is status post Port-A-Cath placement and debridement of the sacral wound by general surgery on 09/18/2024. On today's evaluation that is 09/23/2024, Patient is afebrile this morning patient is more awake and alert denies having any chest pain shortness of breath or cough, the patient is currently on room air, patient denies any abdominal pain, no diarrhea reported. Patient white count is 5.48 creatinine 0.64 urine and sacral wound culture growing gram-negative with ID sensitivity pending Objective - Vital Signs Vital signs: Vital Signs Temp 98.4 F 09/23/24 08:00 Pulse 106 H 09/23/24 10:00 Resp 18 09/23/24 10:00 BP 107/81 09/23/24 10:00 Pulse Ox 95 09/23/24 10:00 FiO2 Intake & Output 09/22/24 09/23/24 09/23/24 18:59 06:59 18:59 Intake Total 1835 1355 470 Output Total 1225 1025 460 Balance 610 330 10 Weight 39.8 kg 40.5 kg Intake: IV 1225 825 250 Cefepime 2 gm In Sodium 100 Chloride 0.9% 100 ml @ 25 mls/hr IVPB Q8HR JACQUELIN Rx# :[id number] Sodium Chloride 0.9% 1, 975 825 150 000 ml @ 75 mls/hr IV . [id number] JACQUELIN Rx#:[id number] Vancomycin 500 mg In 250 Sodium Chloride 0.9% 250 ml @ 125 mls/hr IVPB Q12H JACQUELIN Rx#:[id number] Tube Feeding 520 440 160 Other 90 90 60 Output: Urine 1225 1025 460 Other: Voiding Method Ileal Conduit (Right) Ileal Conduit (Right) Ileal Conduit (Right) - Exam GENERAL DESCRIPTION: Middle-age female lying in bed in no distress RESPIRATORY SYSTEM: Unlabored breathing , decreased breath sounds at bases HEART: S1 S2 regular rate and rhythm , ABDOMEN: Soft , no tenderness EXTREMITIES: No edema feet - Labs CBC & Chem 7: 09/23/24 02:48 09/23/24 02:48 Labs: Abnormal Lab Results - Last 24 Hours (Table) 09/22/24 09/22/24 09/23/24 Range/Units 17:44 23:14 02:48 RBC 3.10 L (4.10-5.20) 10*6/uL Hgb 9.4 L (12.0-15.0) g/dL Hct 30.5 L (37.2-46.3) % MCV 98.4 H (80.0-97.0) fL MCHC 30.8 L (32.0-37.0) g/dL Carbon Dioxide (22-30) mmol/L POC Glucose (mg/dL) 139 H 111 H (70-110) mg/dL 09/23/24 09/23/24 Range/Units 02:48 12:28 RBC (4.10-5.20) 10*6/uL Hgb (12.0-15.0) g/dL Hct (37.2-46.3) % MCV (80.0-97.0) fL MCHC (32.0-37.0) g/dL Carbon Dioxide 34 H (22-30) mmol/L POC Glucose (mg/dL) 111 H (70-110) mg/dL Microbiology - Last 24 Hours (Table) 09/20/24 15:17 Blood Culture - Preliminary Blood 09/21/24 13:13 Blood Culture - Preliminary Blood 09/21/24 14:00 Urine Culture - Preliminary Urine,Voided Gram Neg Bacilli 09/21/24 16:20 Gram Stain - Preliminary Buttock Wound Culture - Preliminary Gram Neg Bacilli Gram Neg Bacilli#2 Assessment and Plan (1) History of ESBL E. coli infection Current Visit: Yes Status: Acute Code(s): Z86.19 - PERSONAL HISTORY OF OTHER INFECTIOUS AND PARASITIC DISEASES SNOMED Code(s): 415488564 (2) UTI (urinary tract infection) Current Visit: Yes Status: Acute Code(s): N39.0 - URINARY TRACT INFECTION, SITE NOT SPECIFIED SNOMED Code(s): 84052387 (3) Stage III pressure ulcer of sacral region Current Visit: No Status: Acute Code(s): L89.153 - PRESSURE ULCER OF SACRAL REGION, STAGE 3 SNOMED Code(s): 25788045317910 (4) MRSA (methicillin resistant staph aureus) culture positive Current Visit: Yes Status: Acute Code(s): Z22.322 - CARRIER OR SUSPECTED CARRIER OF METHICILLIN RESIS STAPH SNOMED Code(s): 390325907 Plan: 1patient presented to hospital with mental status changes did have low-grade fever elevated white count and a positive UA concerning for possible urinary source in this patient who did have a urostomy last admission CT did shows evidence of right-sided hydronephrosis could be the etiology for his recurrent infection 2-urine culture has been requested with initial culture currently growing Yumiko repeat is currently pending 3-local wound care to the sacral wound with santyl followed by moist dressing keep the area of the pressure 4-patient sacral wound cultures are growing MRSA and Yumiko glabrata, CT has been suspicious for osteomyelitis patient subsequent culture done in the ICU growing gram-negative with ID sensitivities pending 5patient is status post Port-A-Cath placement by surgery debridement of the wound on 09/18/2024, 6patient did have a new fever with both urine and the sacral wound culture grew gram-negative ID sensitive pending cefepime was added yesterday to continue along with the vancomycin and voriconazole Dictation was produced using [employer] dictation software. please excuse any grammatical, word or spelling errors. Time with Patient: Less than 30
--- NOTE | 2024-09-23 13:23 | P.PN ---
Subjective Progress Note Date: 09/23/24 I am following-up with patient and she feels she is doing better. Objective - Vital Signs Vital signs: Vital Signs Temp 98.4 F 09/23/24 08:00 Pulse 106 H 09/23/24 10:00 Resp 18 09/23/24 10:00 BP 107/81 09/23/24 10:00 Pulse Ox 95 09/23/24 10:00 FiO2 Intake & Output 09/22/24 09/23/24 09/23/24 18:59 06:59 18:59 Intake Total 1835 1355 470 Output Total 1225 1025 460 Balance 610 330 10 Weight 39.8 kg 40.5 kg Intake: IV 1225 825 250 Cefepime 2 gm In Sodium 100 Chloride 0.9% 100 ml @ 25 mls/hr IVPB Q8HR JACQUELIN Rx# :[id number] Sodium Chloride 0.9% 1, 975 825 150 000 ml @ 75 mls/hr IV . [id number] JACQUELIN Rx#:[id number] Vancomycin 500 mg In 250 Sodium Chloride 0.9% 250 ml @ 125 mls/hr IVPB Q12H JACQUELIN Rx#:[id number] Tube Feeding 520 440 160 Other 90 90 60 Output: Urine 1225 1025 460 Other: Voiding Method Ileal Conduit (Right) Ileal Conduit (Right) Ileal Conduit (Right) - Exam General: Lying in bed and is not in acute distress. HENT: +ve NG tube. Neurology: The patient is more awake today and responsive. She is oriented to self, place. Correctly stated time with options. She following simple commands. No facial weakness. Motor: Limited but was able to briefly raise uppers above gravity. - Labs CBC & Chem 7: 09/23/24 02:48 09/23/24 02:48 Labs: Abnormal Lab Results - Last 24 Hours (Table) 09/22/24 09/22/24 09/23/24 Range/Units 17:44 23:14 02:48 RBC 3.10 L (4.10-5.20) 10*6/uL Hgb 9.4 L (12.0-15.0) g/dL Hct 30.5 L (37.2-46.3) % MCV 98.4 H (80.0-97.0) fL MCHC 30.8 L (32.0-37.0) g/dL Carbon Dioxide (22-30) mmol/L POC Glucose (mg/dL) 139 H 111 H (70-110) mg/dL 09/23/24 09/23/24 Range/Units 02:48 12:28 RBC (4.10-5.20) 10*6/uL Hgb (12.0-15.0) g/dL Hct (37.2-46.3) % MCV (80.0-97.0) fL MCHC (32.0-37.0) g/dL Carbon Dioxide 34 H (22-30) mmol/L POC Glucose (mg/dL) 111 H (70-110) mg/dL Microbiology - Last 24 Hours (Table) 09/20/24 15:17 Blood Culture - Preliminary Blood 09/21/24 13:13 Blood Culture - Preliminary Blood 09/21/24 14:00 Urine Culture - Preliminary Urine,Voided Gram Neg Bacilli 09/21/24 16:20 Gram Stain - Preliminary Buttock Wound Culture - Preliminary Gram Neg Bacilli Gram Neg Bacilli#2 Assessment and Plan Assessment: This is a 39-year-old woman with history of epilepsy, Warnicke encephalopathy, recurrent urinary tract infection who was transferred from [facility] for escalation of care of her urinary tract infection since she failed her outpatient treatment and needed IV antibiotic. Patient was in our facility a few weeks ago and had extensive neurologic workup and had CSF study which was unremarkable for any underlying infection as well as an EEG which was normal. Altered mental status seems due to septic encephalopathy from her urosepsis--mentation improving. Repeat EEG is negative for seizure or discharges. Acute urinary tract infection History of epilepsy on Dilantin History of Wernicke encephalopathy History of Mnire's disease History of Raynaud's disease History of recent COVID-19 infection History of chronic indwelling suprapubic catheter Wheelchair-bound History of recurrent urinary tract infection History of GERD History of anxiety History of depression Plan: Patient will be continued on phenytoin 100 mg, 3 times daily. It seems per our last note her outpatient neurologist Dr. Jo has stopped Topamax and placed her on Dilantin. Topamax can decrease appetite and make weight loss further worse. Patient is off Topamax. Patient had episodes of unresponsiveness couple nights ago. Patient started on Vimpat 100 mg twice daily per Dr. Lindo. Check Dilantin level in the morning. Last Dilantin level 12.2 on 09/19/2024. Patient also has probable metabolic encephalopathy, related to infectious source. Patient is being treated for UTI, and also has sacral wounds concerning for osteomyelitis. Patient on vancomycin and Eraxis. ID following. Patient is status post surgical debridement of the wound on 09/18/2024 Stat EEG was ordered by critical care team. It was abnormal EEG because of presence of background disorganization and slowing, suggestive of moderate to severe encephalopathy. There were presence of intermittent high amplitude sharp appearing waves, which have mostly triphasic quality, although some may have sharp wave quality as well. No electrographic seizure was recorded. Clinical correlation and follow-up is recommended, as clinically indicated. Patient is exhibiting some repetitive mouth and eye movements. Repeat EEG on 09/22/2024 1 hour study: Is abnormal. The background slowing is suggestive of moderate encephalopathy. There is no focal slowing, epileptiform discharge or seizure. There is sharply contoured activity over the left temporal which can increase risk of cortical irritability. Seizure precautions seizure pads Recommend the patient to follow-up with her outpatient neurologist within 3 weeks Will defer the rest of the medical management to the primary team. Patient has hypokalemia 1.9, now improved 3.6. Plan is discussed with nurse. Time with Patient: Less than 30
--- NOTE | 2024-09-23 14:16 | P.PN ---
Subjective Progress Note Date: 09/23/24 Principal diagnosis: Acute sepsis with and acute mental status change possibly postictal and history of alcoholism and Warnicke's encephalopathy. This is a 39-year-old female patient who was found to be completely unresponsive this morning and based on that, the patient was transferred to the intensive care unit for further monitoring. At time of arrival, the patient was afebrile, hemodynamically stable with a pulse ox of 99% on room air oxygen. The patient was in A team evaluation this morning and was reported that the patient was having seizure activity. Subsequently, she became completely unresponsive. Based on that, the patient was transferred to the ICU. Noted the patient was taken Dilantin for history of seizures and her levels were essentially therapeutic. She is known to have seizure disorder. Neurology was asked to reevaluate the patient. The patient was given IV Vimpat 100 mg and started on a dose of 100 mg every 12 hours in addition to Dilantin and EEG is currently in progress. The patient is chronically debilitated. She has history of alcoholism. She has history of Wernicke's encephalopathy related to vitamin be deficiency. She has also had frequent urine tract infections and the patient currently has a urostomy in place. She seems to be chronically malnourished with a body mass index of 18.4. She also has a stage IV pressure ulcer in the coccyx that was debrided recently by general surgery. Sacral CAT scan also showed possibility of osteomyelitis. For now, the white cell count is at 8.1, hemoglobin 11.4 and a platelet count of 192. Sodium is at 140, potassium is at 3.4, chloride is at 109 with a bicarb of 29, BUN is 8 with a creatinine of 0.7. Normal LFTs. Troponins are negative. The most recent urine culture is positive for Yumiko tropicalis. The wound culture postdebridement showed MRSA and Yumiko albicans and glabrata. Antibiotic coverage per ID includes a combination of voriconazole and vancomycin. She is on normal saline at rate of 75 cc an hour. Chest x-ray was done this morning and it shows no acute cardiopulmonary process. NG tube placed. On 09/21/2024, the patient is being seen for a follow-up. The patient is awake and she is communicating. She is a bit lethargic. There is obvious improvement in the patient's mentation over the past 24 hours. No seizure activity has been noted and the patient remains on a combination of Dilantin and Vimpat. Oral intake is quite diminished and the patient has an NG tube in place and the patient receiving enteral feeding for nutritional support. EEG was done yesterday and the EEG findings were abnormal with background disorganization and slowing suggestive of moderate to severe encephalopathy. At the same time, there was intermittent high amplitude sharp waves mostly triphasic quality and some may have sharp wave quality as well. No active seizures noted. Neurology is on the case. Meanwhile, the patient is hemodynamically stable. He is on 2 L of oxygen by nasal cannula. Her white cell count is 6.6 with a hemoglobin 9.4 and a platelet count of 206. BUN is 8 with a creatinine of 0.6 and a sodium levels at 143. She remains on Vfend. She remains on vancomycin. Rest of the medications are essentially unchanged. She is on heparin subcu for DVT prophylaxis. She is on vitamin B1 and B6 supplements. Patient was seen today on 09/22/2024, patient is awake, communicating, but a bit lethargic. Her mental status is basically about the same, no seizure activity in the last 24 hours according to nurses taking care of the patient. Patient is on room air, she has a nasogastric tube in place, she is receiving treatment in the form of vancomycin and voriconazole. WBC count is 6.1 hemoglobin 9.3 electrolytes are normal renal profile is normal Patient was evaluated today on 09/23/2024, patient is doing better today, seems to be less lethargic, more awake, she is not requiring any pressors not requiring any hemodynamic support, she is on room air, hence I will transfer the patient out of the ICU to medical surgical floor. WBC count today is 5.48 hemoglobin 9.4 electrolytes are normal renal profile is normal Objective - Vital Signs Vital signs: Vital Signs Temp 98.4 F 09/23/24 08:00 Pulse 106 H 09/23/24 10:00 Resp 18 09/23/24 10:00 BP 107/81 09/23/24 10:00 Pulse Ox 95 09/23/24 10:00 FiO2 Intake & Output 09/22/24 09/23/24 09/23/24 18:59 06:59 18:59 Intake Total 1835 1355 470 Output Total 1225 1025 460 Balance 610 330 10 Weight 39.8 kg 40.5 kg Intake: IV 1225 825 250 Cefepime 2 gm In Sodium 100 Chloride 0.9% 100 ml @ 25 mls/hr IVPB Q8HR JACQUELIN Rx# :[id number] Sodium Chloride 0.9% 1, 975 825 150 000 ml @ 75 mls/hr IV . [id number] JACQUELIN Rx#:[id number] Vancomycin 500 mg In 250 Sodium Chloride 0.9% 250 ml @ 125 mls/hr IVPB Q12H JACQUELIN Rx#:[id number] Tube Feeding 520 440 160 Other 90 90 60 Output: Urine 1225 1025 460 Other: Voiding Method Ileal Conduit (Right) Ileal Conduit (Right) Ileal Conduit (Right) - Exam Gen: 59-year-old female in no distress, on room air HEENT: Head is atraumatic, normocephalic. Pupils equal, round. Sclerae is anicteric. NECK: Supple. No JVD. No lymphadenopathy. No thyromegaly. LUNGS: Decreased breath sound bilaterally no rhonchi no wheezes HEART: S1, S2 are muffled ABDOMEN: Soft. Bowel sounds are present. No masses. No tenderness. EXTREMITIES: No pedal edema. No calf tenderness. NEUROLOGICAL: Patient is awake, alert and oriented x 2. Generally weak. - Labs CBC & Chem 7: 09/23/24 02:48 09/23/24 02:48 Labs: Abnormal Lab Results - Last 24 Hours (Table) 09/22/24 09/22/24 09/23/24 Range/Units 17:44 23:14 02:48 RBC 3.10 L (4.10-5.20) 10*6/uL Hgb 9.4 L (12.0-15.0) g/dL Hct 30.5 L (37.2-46.3) % MCV 98.4 H (80.0-97.0) fL MCHC 30.8 L (32.0-37.0) g/dL Carbon Dioxide (22-30) mmol/L POC Glucose (mg/dL) 139 H 111 H (70-110) mg/dL 09/23/24 09/23/24 Range/Units 02:48 12:28 RBC (4.10-5.20) 10*6/uL Hgb (12.0-15.0) g/dL Hct (37.2-46.3) % MCV (80.0-97.0) fL MCHC (32.0-37.0) g/dL Carbon Dioxide 34 H (22-30) mmol/L POC Glucose (mg/dL) 111 H (70-110) mg/dL Microbiology - Last 24 Hours (Table) 09/20/24 15:17 Blood Culture - Preliminary Blood 09/21/24 13:13 Blood Culture - Preliminary Blood 09/21/24 14:00 Urine Culture - Preliminary Urine,Voided Gram Neg Bacilli 09/21/24 16:20 Gram Stain - Preliminary Buttock Wound Culture - Preliminary Gram Neg Bacilli Gram Neg Bacilli#2 Assessment and Plan Assessment: Impression: Altered mental status, likely postictal following the seizure. urinary tract infection with Yumiko tropicalis. Stage IV coccyx wound, post debredment and cultures are positive for yumiko and MRSA , currently on vancomycin and voriconazole. History of epilepsy on Dilantin with therapeutic levels. History of alcoholism and Wernicke encephalopathy Mnire's disease Raynaud's disease Previous history of COVID-19 infection Urostomy (functional), constructed due to recurrent UTIs Wheelchair-bound History of recurrent urinary tract infection GERD History of anxiety History of depression Recommendation: Will transfer the patient out of the ICU to a medical surgical floor today. Continue antibiotics and antifungal as per infectious disease on the case Continue seizure medications/antiepileptics Continue IV fluid at 75 cc/h Continue GI DVT prophylaxis Continue enteral feeding/nutritional support Wound care and surgical debridement has been performed Could be transferred out of the ICU today Patient remains relatively ill with multiple complex issues as noted above Will continue to follow Time with Patient: Less than 30
[2024-09-23 16:18] LABS: Glucose,Whole Blood 95 mg/dL (70-110)
[2024-09-23] MEDS: MELATONIN 3 MG TABLET PO PRN (22:22)
[2024-09-23 23:53] LABS: Glucose,Whole Blood 146 mg/dL (70-110)
[2024-09-24] MEDS: LACTULOSE 20 GM/30 ML CUP PO PRN (05:44)
[2024-09-24 06:02] LABS: Basophils # (A) 0.03 10*3/uL (0.00-0.10); Basophils % (A) 0.5 %; Eosinophils # (A) 0.27 10*3/uL (0.04-0.35); Eosinophils % (A) 4.9 %; HCT 31.1 % (37.2-46.3); Lymphocytes # (A) 1.05 10*3/uL (0.90-5.00); MCH 30.8 pg (27.0-32.0); MCHC 32.2 g/dL (32.0-37.0); MCV 95.7 fL (80.0-97.0); Mean Platelet Volume 10.4 fL (9.5-12.2); Monocytes # (A) 0.36 10*3/uL (0.20-1.00); Monocytes % (A) 6.5 %; Neutrophils # (A) 3.82 10*3/uL (1.80-7.70); Neutrophils % (A) 68.9 %; Platelet Count 198 10*3/uL (140-440); RBC 3.25 10*6/uL (4.10-5.20); RDW 13.6 % (11.5-14.5); WBC 5.54 10*3/uL (4.50-10.00)
[2024-09-24 06:19] LABS: Glucose,Whole Blood 76 mg/dL (70-110)
[2024-09-24 06:28] LABS: African American GFR (CKD) >90 (>60 ml/min/1.73 sqM); Anion Gap 4 mmol/L; Blood Urea Nitrogen 14 mg/dL (7-17); Calcium 9.2 mg/dL (8.4-10.2); Carbon Dioxide 32 mmol/L (22-30); Chloride 103 mmol/L (98-107); Glucose 81 mg/dL (74-99); Non-African American GFR(CKD) >90 (>60 ml/min/1.73 sqM); Potassium 3.9 mmol/L (3.5-5.1); Sodium 139 mmol/L (137-145)
--- NOTE | 2024-09-24 09:38 | P.PN ---
Subjective Progress Note Date: 09/23/24 This is a pleasant 39 years old female with past medical history of multiple medical problems as below. She was transferred from [facility] for possible UTI that failed treatment. Patient has history of Warnicke's Korsakoff syndrome and seizures/epilepsy, history of suprapubic catheter which is not present now, neurofibromatosis, Raynaud's disease, legally blind and hearing difficulty, clubfoot and GERD. Patient currently looks confused, she does not know where she is at, she does not remember she came from another hospital or facility, she thinks is 2004 and she does not know the name of the president and she does not know why she is here. Other than then she looks, pleasant and relaxed sitting up in bed. Denies any specific complaint to me. Patient also slow to respond. As per records from [facility] she was recently treated for UTI and altered mental status 08/20-08/24. Then she was in the emergency room for altered mental status where she was treated for 2 days with IV fluid and discharged home to return back in 24 hours not eating and drinking. I called the Mr. Thapa over the phone and he told me she has been sick for about a month super tired sleepy, not eating well, not drinking well not doing anything. He states that she has been treated for 2 infection both of them were UTI. She is also had COVID. Prior to that her mentation was more awake and alert and oriented to the surrounding. As per there is no seizure-like activity. Patient is bedbound and not walking since 2019 where she was diagnosed with multiple vitamin deficiency and [facility] including vitamin B1, B6 and B12 deficiency among others. Also patient has been feeling generalized dizziness. He confirms to me she is full code. Patient is tachycardic with heart rate 116, 135 She had a fever of 99.2. Mildly tachypneic with breathing rate around 20. Labs showing leukocytosis which is worsening were 13,000 at [facility] currently 16.6. Sodium is elevated at 149, liver enzymes mildly elevated. INR is unremarkable, troponin is negative. Urine analysis suspicious for infection EKG showing sinus tachycardia at 133. CT of the brain done at [facility] showing no acute process per report. Patient currently on meropenem and normal saline 130 mL/h. Will resume her home medication but we lowered Seroquel from 50 down to 25 and we held her Ambien of 12.5 mg. 09/11 Patient remains confused to time place person. She looks relaxed not in distress, she can follow simple commands, for example when I ask her where the UTI area she points to her urinary bladder. She can tell the name of her Mr. Thapa. She denies headache dizziness weakness or numbness. No abdominal pain. Patient looks lethargic. No abdominal pain. Her right upper quadrant urostomy is in place. Leukocytosis improving yesterday down to 12,000, sodium normalized. Liver e nzymes mildly elevated. Patient currently kept on meropenem. No IV fluid Neurology evaluated the patient and tapering off her Topamax. Dilantin discontinued. Level was less than 3.0. 09/12 Patient today is much better, she knows she is in [place] although she did not know in the hospital. She knew the year 2024 and August. She she know the name of the president. She knows why she has been admitted to the hospital stating she has infection but she thinks it is in the vagina. We explained to the patient it is her UTI. Patient however denies any vaginal symptom no discharge or itching or pain as she explains. No other new complaint. Her leukocytosis significantly improved from 12 down to 4.1, hemoglobin slightly low from 12 down to 10.5 with some elements of hemodilution. Her normal saline was discontinued She remains on meropenem, fluconazole was added because of urine culture showing Yumiko tropicalis. Neurology also following closely with the plan to stop Topamax. 09/13 Patient mentation improving slowly and gradually Neurologist evaluated the patient and tapering off her Topamax while keeping Dilantin and they recommended Vimpat only if she hasmore seizure, however she did not have any seizure today She has a history of ESBL UTI and she finished course of meropenem. Cultures growing Yumiko and currently fluconazole She has evidence of stage III sacral pressure ulcer Also looks infected with culture growing MRSA and patient was placed on IV vancomycin by ID team 09/14 Patient today mentation significantly better, she is up in bed She is on IV vancomycin and fluconazole for MRSA and Yumiko in the culture No breathing problem no chest pain but she is complaining from worse with eating. Patient continues on Protonix, will increase the frequency to twice daily 09/15 Patient seen and examined by me at bedside. Patient mentation improved after stopping her sedatives and treating her wound infection with IV vancomycin. CT sacrum showing possible underlying sacral osteomyelitis. ESR is 7 However patient since yesterday is developing epigastric pain and tenderness which prevent her from eating, therefore we do not to consult surgical team for further evaluation. Also patient currently on IV Protonix. 09/16/2024 Patient is seen in follow-up today with infectious disease following and is continued with local wound care and will require a PICC line on discharge for IV antibiotic therapy. Patient will be going to [facility] on discharge and requires insurance authorization which is currently pending. Patient to continue with local wound care of the sacral region with frequent offloading. General surgery was consulted for abdominal pain which has resolved and will continue patient on current bowel regimen. Patient is afebrile with no reports of chest pain or shortness of breath. 09/17/2024 Patient is seen in follow-up today continues on antibiotics and tentatively was scheduled for PICC line although they feel they are unable to place it because her veins are very frail and tiny and at risk for infiltrating very easily and this was discussed with infectious disease and will consult general surgery and appreciate input and recommendations regarding possible port placement as patient will require prolonged antibiotics and likely outpatient for quite some time as well. Patient's potassium is extremely low at 1.9 and will be replaced per protocol and will follow-up with serial lab draws to monitor improvements. Continue with protocol and will add daily supplements as well. Patient is afebrile with no reports of chest pain or shortness of breath. Patient will be going to [facility] once cleared by consultations. Patient will require insurance authorization which remains pending at this time. 09/18/2024 Patient is seen in follow-up today currently n.p.o. and scheduled to undergo Mediport placement along with debridement of the sacral ulcer with general surgery. Patient's potassium improved post replacement and currently 4.2 today. Continue with daily supplement and also encouraged oral intake once cleared by surgery post intervention today. Plan will be for continued IV antibiotics in the outpatient setting per ID recommendations. Case management is following currently insurance authorization remains pending for [facility]. Will discuss further with consultations regarding discharge planning possibly in the next 24 to 48 hours. Patient is afebrile with no reported chest pain or shortness of breath. 09/19/2024 patient is seen in follow today sleeping although arousable. Patient is status post Mediport placement as well as debridement of the sacral ulcer being fo llowed by general surgery as well as infectious disease. Patient will continue on 6-week of vancomycin, 2 weeks of oral Vfend with close monitoring of Dilantin levels. [facility] has now accepted the patient pending insurance authorization which is submitted at this time. [facility] has declined the patient. Patient is afebrile with no reports of chest pain or shortness of breath. Potassium is improved and will follow-up on repeat labs. Continue with local wound care per general surgery and infectious disease recommendations. 09/22/2024 Patient continues in the ICU with multiple consultations following including neurology. Patient is scheduled to undergo repeat EEG as previous 1 was abnormal although no seizure-like activity noted. Patient continues with right side facial involuntary movements noted and undergoing further neurological workup. Patient reports this twitching is chronic. Patient is lethargic although arousable and is answering questions appropriately. Patient does continue with confusion and baseline is alert with confusion as well. patient is maintained on antibiotics with infectious disease following in the form of Vfend and vancomycin And will continue. Patient also continues on Vimpat as well as Dilantin. Medications being adjusted to IV form as patient is quite lethargic and currently n.p.o. at this time. Preliminary culture showing gram-negative bacilli of the sacral wound. Will await finalized cultures and adjust medications according to ID recommendations. 09/23/2024 Patient is seen in follow-up continues in the ICU although as a downgrade once a bed becomes available to [facility]. Patient is much more awake and alert today responding appropriately and baseline mentation. Patient is afebrile with no reports of chest pain or shortness of breath. Patient will be reevaluated by speech and hopeful to resume diet. Recommend aspiration precautions. Continue with current antibiotics per ID recommendations and will discuss further r egarding discharge planning with continue IV antibiotic therapy along with neurological recommendations. Review of systems: Constitutional: reports of fatigue, no fever, or chills Cardiovascular: No reports of chest pain or palpitations Respiratory: No reports of shortness of breath or cough GI: No reports of nausea, vomiting, or diarrhea, feeling hungry : No reports of dysuria or retention Neurovascular: reports of weakness, patient reports bedbound All medications have been reviewed Physical exam: Gen: This is a 39-year-old female who is much more awake today, alert and oriented x 12, baseline, confused, appears older than stated age, ill- appearing, twitching and tremors noted of the right facial area on exam HEENT: Head is atraumatic, normocephalic. Pupils equal, round. Sclerae is anicteric. NECK: Supple. No JVD. No lymphadenopathy. No thyromegaly. LUNGS: Diminished breath sounds bilaterally otherwise clear to auscultation. No wheezes or rhonchi. No intercostal retractions. HEART: S1, S2 are muffled ABDOMEN: Soft. Bowel sounds are present. No masses. No tenderness. EXTREMITIES: No pedal edema. No calf tenderness. NEUROLOGICAL: Patient is difficult to assess, lethargic although arousable but fatigues easily. Diffusely weak Assessment: Altered mental status most likely toxic/metabolic encephalopathy. Possibly secondary to seizures, undergoing neurological workup, improved today for 09/23/2024 at baseline Infected Stage III pressure ulcer of the right buttock area with culture growing MRSA, . Sacral CT showing possible underlying osteomyelitis, status postsurgical debridement on 09/18/2024. Cultures growing gram-negative bacilli Acute urinary tract infection, recurrent likely related to urostomy in the right upper quadrant. Culture growing Yumiko which was likely the source of infection. Severe hypokalemia, possibly secondary to poor oral intake, replaced and improved and was 1.9, currently 4.2 sepsis, present on admission secondary to stage III pressure ulcer along with UTI with tachycardia tachypnea and fever and leukocytosis, improved Hypernatremia, resolved History of seizure disorder History of hysterectomy, gastric bypass procedure and urostomy Drug allergy to penicillin causing anaphylaxis History of Warnicke's Korsakoff syndrome History of small bowel obstruction and fecal impaction Debility and mostly bedbound History of peptic ulcer disease Neurofibromatosis Drains disease Legally blind Hearing difficulty History of GERD Moderate calorie protein malnutrition with a BMI of 18.4 GI prophylaxis DVT prophylaxis Full code Plan: Patient being followed by infectious disease as well as general surgery and is status post Mediport placement along with debridement of stage III sacral ulcer. Patient will continue on vancomycin, cefepime and Vfend in the outpatient setting. Patient has received a MediPort. Will discuss further with infectious disease regarding discharge planning and medications to continue Patient had further unresponsiveness and possible seizure-like activity undergoing further neurological workup patient was started on Vimpat and is continued on Dilantin. Repeat EEG ordered and reviewed. Patient had CT brain yesterday showing no acute process. Mentation is much improved today with neurology following will discuss further regarding discharge planning. Patient will need extensive outpatient follow-up with her neurologist on discharge Follow-up on repeat labs and replace electrolytes per protocol, monitor Dilantin level Wound cultures from 09/21/2024 of the wound showing gram-negative bacilli and awaiting finalized cultures and will continue on antibiotics with infectious disease following. Adjust antibiotics accordingly. Continue with wound care Due to multiple complex medical issues, overall prognosis is guarded Possible discharge to [facility] and still requires insurance authorization in the next 24 to 48 hours once cleared by consultations The impression and plan of care has been dictated by Sera Cottrell, Nurse Practitioner as directed. Dr. Asim MD I have performed a history and examination and MDM of this patient, discussed the same with the dictator, and agree with the dictator's assessment and plan as written ,documented as a scribe. Based on total visit time, I have performed more than 50% of the visit. Objective - Vital Signs Vital signs: Vital Signs Temp 97.9 F 09/23/24 04:00 Pulse 98 09/23/24 07:00 Resp 16 09/23/24 07:00 BP 100/69 09/23/24 07:00 Pulse Ox 98 09/23/24 07:00 FiO2 Intake & Output 09/22/24 09/23/24 09/23/24 18:59 06:59 18:59 Intake Total 1835 1355 115 Output Total 1225 1025 85 Balance 610 330 30 Weight 39.8 kg 40.5 kg Intake: IV 1225 825 75 Sodium Chloride 0.9% 1, 975 825 75 000 ml @ 75 mls/hr IV . [id number] JACQUELIN Rx#:[id number] Vancomycin 500 mg In 250 Sodium Chloride 0.9% 250 ml @ 125 mls/hr IVPB Q12H JACQUELIN Rx#:[id number] Tube Feeding 520 440 40 Other 90 90 Output: Urine 1225 1025 85 Other: Voiding Method Ileal Conduit (Right) Ileal Conduit (Right) - Labs CBC & Chem 7: 09/24/24 05:38 09/24/24 05:38 Labs: Abnormal Lab Results - Last 24 Hours (Table) 09/22/24 09/22/24 09/22/24 Range/Units 11:49 17:44 23:14 RBC (4.10-5.20) 10*6/uL Hgb (12.0-15.0) g/dL Hct (37.2-46.3) % MCV (80.0-97.0) fL MCHC (32.0-37.0) g/dL Carbon Dioxide (22-30) mmol/L POC Glucose (mg/dL) 135 H 139 H 111 H (70-110) mg/dL 09/23/24 09/23/24 Range/Units 02:48 02:48 RBC 3.10 L (4.10-5.20) 10*6/uL Hgb 9.4 L (12.0-15.0) g/dL Hct 30.5 L (37.2-46.3) % MCV 98.4 H (80.0-97.0) fL MCHC 30.8 L (32.0-37.0) g/dL Carbon Dioxide 34 H (22-30) mmol/L POC Glucose (mg/dL) (70-110) mg/dL Microbiology - Last 24 Hours (Table) 09/20/24 15:17 Blood Culture - Preliminary Blood 09/21/24 13:13 Blood Culture - Preliminary Blood 09/21/24 14:00 Urine Culture - Preliminary Urine,Voided Gram Neg Bacilli 09/21/24 16:20 Gram Stain - Preliminary Buttock Wound Culture - Preliminary Gram Neg Bacilli Gram Neg Bacilli#2
[2024-09-24 11:17] LABS: Glucose,Whole Blood 95 mg/dL (70-110)
[2024-09-24 13:10] VITALS: RESP 16
--- NOTE | 2024-09-24 13:48 | P.PN ---
Subjective Progress Note Date: 09/24/24 This is a 39-year-old female patient who was found to be completely unresponsive this morning and based on that, the patient was transferred to the intensive care unit for further monitoring. At time of arrival, the patient was afebrile, hemodynamically stable with a pulse ox of 99% on room air oxygen. The patient was in A team evaluation this morning and was reported that the patient was having seizure activity. Subsequently, she became completely unresponsive. Based on that, the patient was transferred to the ICU. Noted the patient was taken Dilantin for history of seizures and her levels were essentially therapeutic. She is known to have seizure disorder. Neurology was asked to reevaluate the patient. The patient was given IV Vimpat 100 mg and started on a dose of 100 mg every 12 hours in addition to Dilantin and EEG is currently in progress. The patient is chronically debilitated. She has history of alcoholism. She has history of Wernicke's encephalopathy related to vitamin be deficiency. She has also had frequent urine tract infections and the patient currently has a urost winston in place. She seems to be chronically malnourished with a body mass index of 18.4. She also has a stage IV pressure ulcer in the coccyx that was debrided recently by general surgery. Sacral CAT scan also showed possibility of osteomyelitis. For now, the white cell count is at 8.1, hemoglobin 11.4 and a platelet count of 192. Sodium is at 140, potassium is at 3.4, chloride is at 109 with a bicarb of 29, BUN is 8 with a creatinine of 0.7. Normal LFTs. Troponins are negative. The most recent urine culture is positive for Yumiko tropicalis. The wound culture postdebridement showed MRSA and Yumiko albicans and glabrata. Antibiotic coverage per ID includes a combination of voriconazole and vancomycin. She is on normal saline at rate of 75 cc an hour. Chest x-ray was done this morning and it shows no acute cardiopulmonary process. NG tube placed. On 09/21/2024, the patient is being seen for a follow-up. The patient is awake and she is communicating. She is a bit lethargic. There is obvious improvement in the patient's mentation over the past 24 hours. No seizure activity has been noted and the patient remains on a combination of Dilantin and Vimpat. Oral intake is quite diminished and the patient has an NG tube in place and the patient receiving enteral feeding for nutritional support. EEG was done yesterday and the EEG findings were abnormal with background disorganization and slowing suggestive of moderate to severe encephalopathy. At the same time, there was intermittent high amplitude sharp waves mostly triphasic quality and some may have sharp wave quality as well. No active seizures noted. Neurology is on the case. Meanwhile, the patient is hemodynamically stable. He is on 2 L of oxygen by nasal cannula. Her white cell count is 6.6 with a hemoglobin 9.4 and a platelet count of 206. BUN is 8 with a creatinine of 0.6 and a sodium levels at 143. She remains on Vfend. She remains on vancomycin. Rest of the medications are essentially unchanged. She is on heparin subcu for DVT prophylaxis. She is on vitamin B1 and B6 supplements. Patient was seen today on 09/22/2024, patient is awake, communicating, but a bit lethargic. Her mental status is basically about the same, no seizure activity in the last 24 hours according to nurses taking care of the patient. Patient is on room air, she has a nasogastric tube in place, she is receiving treatment in the form of vancomycin and voriconazole. WBC count is 6.1 hemoglobin 9.3 electrolytes are normal renal profile is normal Patient was evaluated today on 09/23/2024, patient is doing better today, seems to be less lethargic, more awake, she is not requiring any pressors not requiring any hemodynamic support, she is on room air, hence I will transfer the patient out of the ICU to medical surgical floor. WBC count today is 5.48 hemoglobin 9.4 electrolytes are normal renal profile is normal The patient is seen today September 24, 2024 in follow-up on the regular medical floor. She is currently awake and alert in no acute distress. Maintaining good O2 saturations in the 90s on room air oxygen. She is afebrile. Hemodynamically stable. She denies any worsening shortness of breath, cough or congestion. No seizures. Wound cultures from her buttocks was positive for Enterobacter aerogenes and Proteus mirabilis ESBL MDRO. Sodium 139. Potassium 3.9. Bicarb 32. BUN 14. Creatinine 0.60. Glucose 81. She is currently on ertapenem and vancomycin and voriconazole. She remains on Dilantin and Vimpat. Objective - Vital Signs Vital signs: Vital Signs Temp 98.3 F 09/24/24 13:09 Pulse 90 09/24/24 13:09 Resp 16 09/24/24 13:09 BP 98/64 09/24/24 13:09 Pulse Ox 96 09/24/24 13:09 FiO2 Intake & Output 09/23/24 09/24/24 09/24/24 18:59 06:59 18:59 Intake Total 470 1500 Output Total 1060 2650 Balance -590 -1150 Weight 35.5 kg Intake: IV 250 Cefepime 2 gm In Sodium 100 Chloride 0.9% 100 ml @ 25 mls/hr IVPB Q8HR JACQUELIN Rx# :[id number] Sodium Chloride 0.9% 1, 150 000 ml @ 75 mls/hr IV . [id number] JACQUELIN Rx#:[id number] Oral 1500 Tube Feeding 160 Other 60 Output: Urine 1060 2650 Other: Voiding Method Ileal Conduit (Right) Ileal Conduit (Right) Ileal Conduit (Ri ght) # Bowel Movements 0 - Exam GENERAL EXAM: Alert, pleasant, very thin 39-year-old female, on room air oxygen, comfortable in no apparent distress. HEAD: Normocephalic. EYES: Normal reaction of pupils, equal size. NOSE: Clear with pink turbinates. THROAT: No erythema or exudates. NECK: No masses, no JVD. CHEST: No chest wall deformity. Port-A-Cath in place LUNGS: Equal air entry with no crackles, wheeze, rhonchi or dullness. CVS: S1 and S2 normal with no audible murmur, regular rhythm. ABDOMEN: No hepatosplenomegaly, normal bowel sounds, no guarding or rigidity. SPINE: No scoliosis or deformity SKIN: No rashes. Her ulcer of the sacrum CENTRAL NERVOUS SYSTEM: No focal deficits, tone is normal in all 4 extremities. EXTREMITIES: There is no peripheral edema. No clubbing, no cyanosis. Peripheral pulses are intact. - Labs CBC & Chem 7: 09/24/24 05:38 09/24/24 05:38 Labs: Abnormal Lab Results - Last 24 Hours (Table) 09/23/24 09/24/24 09/24/24 Range/Units 23:51 05:38 05:38 RBC 3.25 L (4.10-5.20) 10*6/uL Hgb 10.0 L (12.0-15.0) g/dL Hct 31.1 L (37.2-46.3) % Carbon Dioxide 32 H (22-30) mmol/L POC Glucose (mg/dL) 146 H (70-110) mg/dL Microbiology - Last 24 Hours (Table) 09/20/24 15:17 Blood Culture - Preliminary Blood 09/21/24 13:13 Blood Culture - Preliminary Blood 09/21/24 14:00 Urine Culture - Final Urine,Voided Achromobacter xylos/denitrif 09/21/24 16:20 Gram Stain - Final Buttock Wound Culture - Final Enterobacter aerogenes Proteus mirabilis ESBL MDRO Assessment and Plan Assessment: Altered mental status, likely postictal following the seizure. Recovered Urinary tract infection with Yumiko tropicalis. Stage IV coccyx wound, post debredment and cultures are positive for Enterobacter aerogenes, Proteus mirabilis ESBL MDRO, yumiko and MRSA , currently on ertapenem, vancomycin and voriconazole. History of epilepsy on Vimpat and Dilantin with therapeutic levels. History of alcoholism and Wernicke encephalopathy Mnire's disease Raynaud's disease Previous history of COVID-19 infection Urostomy (functional), constructed due to recurrent UTIs Wheelchair-bound History of recurrent urinary tract infection GERD History of anxiety History of depression Plan: The patient was seen and evaluated Microbiology, labs and medications reviewed Port-A-Cath in place Continued on vancomycin and voriconazole Ertapenem added today No seizures in the past 24 hours Remains on Vimpat and Dilantin Heparin for DVT prophylaxis Protonix for GI prophylaxis Remains stable and on room air oxygen Plan is for [facility] at discharge I have personally seen and examined the patient, performed the documentation and the assessment and plan as written. Number of minutes spent on the visit: 25 Dictation was produced using [employer] dictation software. Please excuse any grammatical, word or spelling errors.
[2024-09-24] MEDS: ERTAPENEM 1 GM in SODIUM CHLORIDE 0.9% 50 ML IVPB SCH (15:42)
[2024-09-24 16:09] LABS: Glucose,Whole Blood 108 mg/dL (70-110)
[2024-09-24 20:38] LABS: Glucose,Whole Blood 92 mg/dL (70-110)
--- NOTE | 2024-09-24 22:33 | P.PN ---
Subjective Progress Note Date: 09/24/24 This is a pleasant 39 years old female with past medical history of multiple medical problems as below. She was transferred from [facility] for possible UTI that failed treatment. Patient has history of Warnicke's Korsakoff syndrome and seizures/epilepsy, history of suprapubic catheter which is not present now, neurofibromatosis, Raynaud's disease, legally blind and hearing difficulty, clubfoot and GERD. Patient currently looks confused, she does not know where she is at, she does not remember she came from another hospital or facility, she thinks is 2004 and she does not know the name of the president and she does not know why she is here. Other than then she looks, pleasant and relaxed sitting up in bed. Denies any specific complaint to me. Patient also slow to respond. As per records from [facility] she was recently treated for UTI and altered mental status 08/20-08/24. Then she was in the emergency room for altered mental status where she was treated for 2 days with IV fluid and discharged home to return back in 24 hours not eating and drinking. I called the Mr. Thapa over the phone and he told me she has been sick for about a month super tired sleepy, not eating well, not drinking well not doing anything. He states that she has been treated for 2 infection both of them were UTI. She is also had COVID. Prior to that her mentation was more awake and alert and oriented to the surrounding. As per there is no seizure-like activity. Patient is bedbound and not walking since 2019 where she was diagnosed with multiple vitamin deficiency and [facility] including vitamin B1, B6 and B12 deficiency among others. Also patient has been feeling generalized dizziness. He confirms to me she is full code. Patient is tachycardic with heart rate 116, 135 She had a fever of 99.2. Mildly tachypneic with breathing rate around 20. Labs showing leukocytosis which is worsening were 13,000 at [facility] currently 16.6. Sodium is elevated at 149, liver enzymes mildly elevated. INR is unremarkable, troponin is negative. Urine analysis suspicious for infection EKG showing sinus tachycardia at 133. CT of the brain done at [facility] showing no acute process per report. Patient currently on meropenem and normal saline 130 mL/h. Will resume her home medication but we lowered Seroquel from 50 down to 25 and we held her Ambien of 12.5 mg. 09/11 Patient remains confused to time place person. She looks relaxed not in distress, she can follow simple commands, for example when I ask her where the UTI area she points to her urinary bladder. She can tell the name of her Mr. Thapa. She denies headache dizziness weakness or numbness. No abdominal pain. Patient looks lethargic. No abdominal pain. Her right upper quadrant urostomy is in place. Leukocytosis improving yesterday down to 12,000, sodium normalized. Liver e nzymes mildly elevated. Patient currently kept on meropenem. No IV fluid Neurology evaluated the patient and tapering off her Topamax. Dilantin discontinued. Level was less than 3.0. 09/12 Patient today is much better, she knows she is in [place] although she did not know in the hospital. She knew the year 2024 and August. She she know the name of the president. She knows why she has been admitted to the hospital stating she has infection but she thinks it is in the vagina. We explained to the patient it is her UTI. Patient however denies any vaginal symptom no discharge or itching or pain as she explains. No other new complaint. Her leukocytosis significantly improved from 12 down to 4.1, hemoglobin slightly low from 12 down to 10.5 with some elements of hemodilution. Her normal saline was discontinued She remains on meropenem, fluconazole was added because of urine culture showing Yumiko tropicalis. Neurology also following closely with the plan to stop Topamax. 09/13 Patient mentation improving slowly and gradually Neurologist evaluated the patient and tapering off her Topamax while keeping Dilantin and they recommended Vimpat only if she hasmore seizure, however she did not have any seizure today She has a history of ESBL UTI and she finished course of meropenem. Cultures growing Yumiko and currently fluconazole She has evidence of stage III sacral pressure ulcer Also looks infected with culture growing MRSA and patient was placed on IV vancomycin by ID team 09/14 Patient today mentation significantly better, she is up in bed She is on IV vancomycin and fluconazole for MRSA and Yumiko in the culture No breathing problem no chest pain but she is complaining from worse with eating. Patient continues on Protonix, will increase the frequency to twice daily 09/15 Patient seen and examined by me at bedside. Patient mentation improved after stopping her sedatives and treating her wound infection with IV vancomycin. CT sacrum showing possible underlying sacral osteomyelitis. ESR is 7 However patient since yesterday is developing epigastric pain and tenderness which prevent her from eating, therefore we do not to consult surgical team for further evaluation. Also patient currently on IV Protonix. 09/16/2024 Patient is seen in follow-up today with infectious disease following and is continued with local wound care and will require a PICC line on discharge for IV antibiotic therapy. Patient will be going to [facility] on discharge and requires insurance authorization which is currently pending. Patient to continue with local wound care of the sacral region with frequent offloading. General surgery was consulted for abdominal pain which has resolved and will continue patient on current bowel regimen. Patient is afebrile with no reports of chest pain or shortness of breath. 09/17/2024 Patient is seen in follow-up today continues on antibiotics and tentatively was scheduled for PICC line although they feel they are unable to place it because her veins are very frail and tiny and at risk for infiltrating very easily and this was discussed with infectious disease and will consult general surgery and appreciate input and recommendations regarding possible port placement as patient will require prolonged antibiotics and likely outpatient for quite some time as well. Patient's potassium is extremely low at 1.9 and will be replaced per protocol and will follow-up with serial lab draws to monitor improvements. Continue with protocol and will add daily supplements as well. Patient is afebrile with no reports of chest pain or shortness of breath. Patient will be going to [facility] once cleared by consultations. Patient will require insurance authorization which remains pending at this time. 09/18/2024 Patient is seen in follow-up today currently n.p.o. and scheduled to undergo Mediport placement along with debridement of the sacral ulcer with general surgery. Patient's potassium improved post replacement and currently 4.2 today. Continue with daily supplement and also encouraged oral intake once cleared by surgery post intervention today. Plan will be for continued IV antibiotics in the outpatient setting per ID recommendations. Case management is following currently insurance authorization remains pending for [facility]. Will discuss further with consultations regarding discharge planning possibly in the next 24 to 48 hours. Patient is afebrile with no reported chest pain or shortness of breath. 09/19/2024 patient is seen in follow today sleeping although arousable. Patient is status post Mediport placement as well as debridement of the sacral ulcer being fo llowed by general surgery as well as infectious disease. Patient will continue on 6-week of vancomycin, 2 weeks of oral Vfend with close monitoring of Dilantin levels. [facility] has now accepted the patient pending insurance authorization which is submitted at this time. [facility] has declined the patient. Patient is afebrile with no reports of chest pain or shortness of breath. Potassium is improved and will follow-up on repeat labs. Continue with local wound care per general surgery and infectious disease recommendations. 09/22/2024 Patient continues in the ICU with multiple consultations following including neurology. Patient is scheduled to undergo repeat EEG as previous 1 was abnormal although no seizure-like activity noted. Patient continues with right side facial involuntary movements noted and undergoing further neurological workup. Patient reports this twitching is chronic. Patient is lethargic although arousable and is answering questions appropriately. Patient does continue with confusion and baseline is alert with confusion as well. patient is maintained on antibiotics with infectious disease following in the form of Vfend and vancomycin And will continue. Patient also continues on Vimpat as well as Dilantin. Medications being adjusted to IV form as patient is quite lethargic and currently n.p.o. at this time. Preliminary culture showing gram-negative bacilli of the sacral wound. Will await finalized cultures and adjust medications according to ID recommendations. 09/23/2024 Patient is seen in follow-up continues in the ICU although as a downgrade once a bed becomes available to [facility]. Patient is much more awake and alert today responding appropriately and baseline mentation. Patient is afebrile with no reports of chest pain or shortness of breath. Patient will be reevaluated by speech and hopeful to resume diet. Recommend aspiration precautions. Continue with current antibiotics per ID recommendations and will discuss further r egarding discharge planning with continue IV antibiotic therapy along with neurological recommendations. 09/24/2024 Patient is seen in follow-up today out of the ICU on the [facility] floor doing relatively well. Patient is much more awake and alert asking for assistance with eating. Patient is at baseline and will be going to [facility] for continued wound care and IV antibiotic therapy. Case management following attempting to resubmit insurance authorization as patient has been accepted at [facility]. Infectious disease following and patient has a Mediport and will continue vancomycin, cefepime, Vfend while awaiting repeat cultures. Preliminary cultures of the buttock from 09/21/2024 debridement showing Enterobacter and Proteus Mirabilis ESBL. Review of systems: Constitutional: reports of fatigue, no fever, or chills Cardiovascular: No reports of chest pain or palpitations Respiratory: No reports of shortness of breath or cough GI: No reports of nausea, vomiting, or diarrhea, feeling hungry : No reports of dysuria or retention Neurovascular: reports of weakness, patient reports bedbound All medications have been reviewed Physical exam: Gen: This is a 39-year-old female who is much more awake today, alert and oriented x 2, baseline, confused, appears older than stated age, ill-appearing, twitching and tremors noted of the right facial area on exam, mildly improved HEENT: Head is atraumatic, normocephalic. Pupils equal, round. Sclerae is anicteric. NECK: Supple. No JVD. No lymphadenopathy. No thyromegaly. LUNGS: Diminished breath sounds bilaterally otherwise clear to auscultation. No wheezes or rhonchi. No intercostal retractions. HEART: S1, S2 are muffled ABDOMEN: Soft. Bowel sounds are present. No masses. No tenderness. EXTREMITIES: No pedal edema. No calf tenderness. NEUROLOGICAL: Patient is difficult to assess, lethargic although arousable but fatigues easily. Diffusely weak Assessment: Altered mental status most likely toxic/metabolic encephalopathy. Possibly secondary to seizures, undergoing neurological workup, improved 09/23/2024 at baseline Infected Stage III pressure ulcer of the right buttock area with culture growing MRSA, . Sacral CT showing possible underlying osteomyelitis, status postsurgical debridement on 09/18/2024. Cultures growing Proteus Mirabella's with ESBL and Enterococcus Acute urinary tract infection, recurrent likely related to urostomy in the right upper quadrant. Culture growing Yumiko which was likely the source of infection. Severe hypokalemia, possibly secondary to poor oral intake, replaced and improved and was 1.9, currently 4.2 sepsis, present on admission secondary to stage III pressure ulcer along with UTI with tachycardia tachypnea and fever and leukocytosis, improved Hypernatremia, resolved History of seizure disorder History of hysterectomy, gastric bypass procedure and urostomy Drug allergy to penicillin causing anaphylaxis History of Warnicke's Korsakoff syndrome History of small bowel obstruction and fecal impaction Debility and mostly bedbound History of peptic ulcer disease Neurofibromatosis Drains disease Legally blind Hearing difficulty History of GERD Moderate calorie protein malnutrition with a BMI of 18.4 GI prophylaxis DVT prophylaxis Full code Plan: Patient being followed by infectious disease as well as general surgery and is status post Mediport placement along with debridement of stage III sacral ulcer. Patient will continue on vancomycin, cefepime and Vfend in the outpatient setting. Patient has received a MediPort. Will discuss further with infectious disease regarding discharge planning and medications to continue. Repeat cultures from the debridement showing Proteus with ESBL as well as Enterococcus. No further episodes of seizure-like activity or unresponsiveness. Will monitor closely follow-up on repeat labs and replace electrolytes per protocol, monitor Dilantin level Case management following and patient has been accepted at [facility] and will require insurance authorization. Patient having issues with [employer] insurance at this time. Case management assisting. Continue with wound care Due to multiple complex medical issues, overall prognosis is guarded Possible discharge to [facility] and still requires insurance authorization in the next 24 to 48 hours once cleared by consultations The impression and plan of care has been dictated by Sera Cottrell, Nurse Practitioner as directed. Dr. Asim MD I have performed a history and examination and MDM of this patient, discussed the same with the dictator, and agree with the dictator's assessment and plan as written ,documented as a scribe. Based on total visit time, I have performed more than 50% of the visit. Objective - Vital Signs Vital signs: Vital Signs Temp 97.9 F 09/24/24 07:21 Pulse 89 09/24/24 07:21 Resp 15 09/24/24 07:21 BP 100/69 09/24/24 07:21 Pulse Ox 95 09/24/24 07:21 FiO2 Intake & Output 09/23/24 09/24/24 09/24/24 18:59 06:59 18:59 Intake Total 470 1500 Output Total 1060 2650 Balance -590 -1150 Weight 35.5 kg Intake: IV 250 Cefepime 2 gm In Sodium 100 Chloride 0.9% 100 ml @ 25 mls/hr IVPB Q8HR [facility] Rx# :[id number] Sodium Chloride 0.9% 1, 150 000 ml @ 75 mls/hr IV . [id number] JACQUELIN Rx#:[id number] Oral 1500 Tube Feeding 160 Other 60 Output: Urine 1060 2650 Other: Voiding Method Ileal Conduit (Right) Ileal Conduit (Right) # Bowel Movements 0 - Labs CBC & Chem 7: 09/24/24 05:38 09/24/24 05:38 Labs: Abnormal Lab Results - Last 24 Hours (Table) 09/23/24 09/23/24 09/24/24 Range/Units 12:28 23:51 05:38 RBC 3.25 L (4.10-5.20) 10*6/uL Hgb 10.0 L (12.0-15.0) g/dL Hct 31.1 L (37.2-46.3) % Carbon Dioxide (22-30) mmol/L POC Glucose (mg/dL) 111 H 146 H (70-110) mg/dL 09/24/24 Range/Units 05:38 RBC (4.10-5.20) 10*6/uL Hgb (12.0-15.0) g/dL Hct (37.2-46.3) % Carbon Dioxide 32 H (22-30) mmol/L POC Glucose (mg/dL) (70-110) mg/dL Microbiology - Last 24 Hours (Table) 09/20/24 15:17 Blood Culture - Preliminary Blood 09/21/24 13:13 Blood Culture - Preliminary Blood 09/21/24 14:00 Urine Culture - Final Urine,Voided Achromobacter xylos/denitrif 09/21/24 16:20 Gram Stain - Final Buttock Wound Culture - Final Enterobacter aerogenes Proteus mirabilis ESBL MDRO
[2024-09-25 00:31] LABS: Glucose,Whole Blood 78 mg/dL (70-110)
[2024-09-25 06:04] LABS: Glucose,Whole Blood 77 mg/dL (70-110)
[2024-09-25 08:34] LABS: Basophils # (A) 0.03 X 10*3/uL (0.00-0.10); Basophils % (A) 0.7 %; Eosinophils # (A) 0.26 X 10*3/uL (0.04-0.35); Eosinophils % (A) 5.7 %; HCT 30.3 % (37.2-46.3); HGB 9.4 g/dL (12.0-15.0); Lymphocytes # (A) 1.02 X 10*3/uL (0.90-5.00); Lymphocytes % (A) 22.4 %; MCH 30.3 pg (27.0-32.0); MCV 97.7 FL (80.0-97.0); Mean Platelet Volume 10.4 FL (9.5-12.2); Monocytes # (A) 0.31 X 10*3/uL (0.20-1.00); Monocytes % (A) 6.8 %; NRBC Per 100 WBC 0 X 10*3/uL (0.00-0.01); Neutrophils # (A) 2.92 X 10*3/uL (1.80-7.70); Neutrophils % (A) 64.2 %; Platelet Count 242 X 10*3/uL (140-440); RDW 13.5 % (11.5-14.5); WBC 4.55 X 10*3/uL (4.50-10.00)
--- NOTE | 2024-09-25 12:08 | P.PN ---
Subjective Progress Note Date: 09/25/24 This is a 39-year-old female patient who was found to be completely unresponsive this morning and based on that, the patient was transferred to the intensive care unit for further monitoring. At time of arrival, the patient was afebrile, hemodynamically stable with a pulse ox of 99% on room air oxygen. The patient was in A team evaluation this morning and was reported that the patient was having seizure activity. Subsequently, she became completely unresponsive. Based on that, the patient was transferred to the ICU. Noted the patient was taken Dilantin for history of seizures and her levels were essentially therapeutic. She is known to have seizure disorder. Neurology was asked to reevaluate the patient. The patient was given IV Vimpat 100 mg and started on a dose of 100 mg every 12 hours in addition to Dilantin and EEG is currently in progress. The patient is chronically debilitated. She has history of alcoholism. She has history of Wernicke's encephalopathy related to vitamin be deficiency. She has also had frequent urine tract infections and the patient currently has a urost winston in place. She seems to be chronically malnourished with a body mass index of 18.4. She also has a stage IV pressure ulcer in the coccyx that was debrided recently by general surgery. Sacral CAT scan also showed possibility of osteomyelitis. For now, the white cell count is at 8.1, hemoglobin 11.4 and a platelet count of 192. Sodium is at 140, potassium is at 3.4, chloride is at 109 with a bicarb of 29, BUN is 8 with a creatinine of 0.7. Normal LFTs. Troponins are negative. The most recent urine culture is positive for Yumiko tropicalis. The wound culture postdebridement showed MRSA and Yumiko albicans and glabrata. Antibiotic coverage per ID includes a combination of voriconazole and vancomycin. She is on normal saline at rate of 75 cc an hour. Chest x-ray was done this morning and it shows no acute cardiopulmonary process. NG tube placed. On 09/21/2024, the patient is being seen for a follow-up. The patient is awake and she is communicating. She is a bit lethargic. There is obvious improvement in the patient's mentation over the past 24 hours. No seizure activity has been noted and the patient remains on a combination of Dilantin and Vimpat. Oral intake is quite diminished and the patient has an NG tube in place and the patient receiving enteral feeding for nutritional support. EEG was done yesterday and the EEG findings were abnormal with background disorganization and slowing suggestive of moderate to severe encephalopathy. At the same time, there was intermittent high amplitude sharp waves mostly triphasic quality and some may have sharp wave quality as well. No active seizures noted. Neurology is on the case. Meanwhile, the patient is hemodynamically stable. He is on 2 L of oxygen by nasal cannula. Her white cell count is 6.6 with a hemoglobin 9.4 and a platelet count of 206. BUN is 8 with a creatinine of 0.6 and a sodium levels at 143. She remains on Vfend. She remains on vancomycin. Rest of the medications are essentially unchanged. She is on heparin subcu for DVT prophylaxis. She is on vitamin B1 and B6 supplements. Patient was seen today on 09/22/2024, patient is awake, communicating, but a bit lethargic. Her mental status is basically about the same, no seizure activity in the last 24 hours according to nurses taking care of the patient. Patient is on room air, she has a nasogastric tube in place, she is receiving treatment in the form of vancomycin and voriconazole. WBC count is 6.1 hemoglobin 9.3 electrolytes are normal renal profile is normal Patient was evaluated today on 09/23/2024, patient is doing better today, seems to be less lethargic, more awake, she is not requiring any pressors not requiring any hemodynamic support, she is on room air, hence I will transfer the patient out of the ICU to medical surgical floor. WBC count today is 5.48 hemoglobin 9.4 electrolytes are normal renal profile is normal The patient is seen today September 24, 2024 in follow-up on the regular medical floor. She is currently awake and alert in no acute distress. Maintaining good O2 saturations in the 90s on room air oxygen. She is afebrile. Hemodynamically stable. She denies any worsening shortness of breath, cough or congestion. No seizures. Wound cultures from her buttocks was positive for Enterobacter aerogenes and Proteus mirabilis ESBL MDRO. Sodium 139. Potassium 3.9. Bicarb 32. BUN 14. Creatinine 0.60. Glucose 81. She is currently on ertapenem and vancomycin and voriconazole. She remains on Dilantin and Vimpat. The patient is seen today September 25, 2024 in follow-up on the regular medical floor. She is awake and alert in no acute distress. She has not had any further seizure activity. She is maintaining good O2 saturations in the 90s on room air oxygen. Wound cultures from her buttocks was positive for Enterobacter aerogenes and Proteus mirabilis ESBL MDRO. She remains on ertapenem, vancomycin and voriconazole. White count 4.5. Hemoglobin 9.4. Platelets 242. Glucose 77. She remains on Vimpat and Dilantin. Heparin for DVT prophylaxis. Protonix for GI prophylaxis. Objective - Vital Signs Vital signs: Vital Signs Temp 98.1 F 09/25/24 07:16 Pulse 94 09/25/24 07:16 Resp 16 09/25/24 07:16 BP 113/82 09/25/24 07:16 Pulse Ox 100 09/25/24 07:16 FiO2 Intake & Output 09/24/24 09/25/24 09/25/24 18:59 06:59 18:59 Output Total 2400 750 700 Balance -2400 -750 -700 Weight 36 kg 44.5 kg Output: Urine 2400 750 700 Other: Voiding Method Ileal Conduit (Right) Ileal Conduit (Right) Ileal Conduit (Right) # Bowel Movements 1 - Exam GENERAL EXAM: Alert, very thin 39-year-old female, on room air oxygen, in no apparent distress. HEAD: Normocephalic. EYES: Normal reaction of pupils, equal size. NOSE: Clear with pink turbinates. THROAT: No erythema or exudates. NECK: No masses, no JVD. CHEST: No chest wall deformity. Port-A-Cath in place LUNGS: Equal air entry with no crackles, wheeze, rhonchi or dullness. CVS: S1 and S2 normal with no audible murmur, regular rhythm. ABDOMEN: No hepatosplenomegaly, normal bowel sounds, no guarding or rigidity. SPINE: No scoliosis or deformity SKIN: No rashes. Stage III pressure ulcer of the sacrum. CENTRAL NERVOUS SYSTEM: No focal deficits, tone is normal in all 4 extremities. EXTREMITIES: There is no peripheral edema. No clubbing, no cyanosis. Peripheral pulses are intact. - Labs CBC & Chem 7: 09/25/24 04:53 09/24/24 05:38 Labs: Abnormal Lab Results - Last 24 Hours (Table) 09/25/24 Range/Units 04:53 RBC 3.10 L (4.10-5.20) X 10*6/uL Hgb 9.4 L (12.0-15.0) g/dL Hct 30.3 L (37.2-46.3) % MCV 97.7 H (80.0-97.0) FL MCHC 31.0 L (32.0-37.0) g/dL Microbiology - Last 24 Hours (Table) 09/21/24 13:13 Blood Culture - Preliminary Blood Assessment and Plan Assessment: Altered mental status, likely postictal following the seizure. Recovered Urinary tract infection with Yumiko tropicalis. Stage III coccyx wound, post debredment and cultures are positive for Enterobacter aerogenes, Proteus mirabilis ESBL MDRO, yumiko and MRSA , currently on ertapenem, vancomycin and voriconazole. History of epilepsy on Vimpat and Dilantin with therapeutic levels. History of alcoholism and Wernicke encephalopathy Mnire's disease Raynaud's disease Previous history of COVID-19 infection Urostomy (functional), constructed due to recurrent UTIs Wheelchair-bound History of recurrent urinary tract infection GERD History of anxiety History of depression Plan: The patient was seen and evaluated Microbiology, labs and medications reviewed Continued on ertapenem, vancomycin and voriconazole No seizures in the past 48 hours Remains on Vimpat and Dilantin Heparin for DVT prophylaxis Protonix for GI prophylaxis Remains stable and on room air oxygen Plan is for [facility] at discharge This patient was seen independently by the pulmonary nurse practitioner add ressing pulmonary issues I have personally seen and examined the patient, performed the documentation and the assessment and plan as written. Number of minutes spent on the visit: 24 Dictation was produced using [employer] software. Please excuse any grammatical, word or spelling errors.
[2024-09-25 12:15] LABS: Glucose,Whole Blood 84 mg/dL (70-110)
--- NOTE | 2024-09-25 13:40 | P.DS ---
Providers Date of admission: 09/09/24 19:09 Expected date of discharge: 09/25/24 Attending physician: aRdha Dailey Consults: 09/10/24 07:36 Consult Physician Routine Consulting Provider: Robi Morris Consult Reason/Comments: ams, h/o seizure Do you want consulting provider notified?: Yes 09/10/24 07:37 Consult Physician Routine Consulting Provider: Chika Xavier Consult Reason/Comments: sepsis Do you want consulting provider notified?: Yes 09/20/24 07:30 Consult Physician Stat Consulting Provider: Irma Zabala Consult Reason/Comments: ICU managment Do you want consulting provider notified?: Already Contacted Primary care physician: Kyler Whalen Hospital Course: Final diagnosis Altered mental status most likely toxic/metabolic encephalopathy. Possibly secondary to seizures, undergoing neurological workup, improved 09/23/2024 at baseline Infected Stage III pressure ulcer of the right buttock area with culture growing MRSA, . Sacral CT showing possible underlying osteomyelitis, status postsurgical debridement on 09/18/2024. Cultures growing Proteus Mirabella's with ESBL and Enterococcus Acute urinary tract infection, recurrent likely related to urostomy in the right upper quadrant. Culture growing Yumiko which was likely the source of infection. Severe hypokalemia, possibly secondary to poor oral intake, replaced and im proved and was 1.9, currently 4.2 sepsis, present on admission secondary to stage III pressure ulcer along with UTI with tachycardia tachypnea and fever and leukocytosis, improved Hypernatremia, resolved History of seizure disorder History of hysterectomy, gastric bypass procedure and urostomy Drug allergy to penicillin causing anaphylaxis History of Warnicke's Korsakoff syndrome History of small bowel obstruction and fecal impaction Debility and mostly bedbound History of peptic ulcer disease Neurofibromatosis Drains disease Legally blind Hearing difficulty History of GERD Moderate calorie protein malnutrition with a BMI of 18.4 GI prophylaxis DVT prophylaxis Full code Discharge disposition Patient is being discharged in a stable condition with guarded prognosis to [facility]. Patient will follow-up with Dr. Whalen in the outpatient setting upon discharge. Patient is to continue with IV antibiotics through the [facility] in the form of Invanz and vancomycin with pharmacy to dose and outpatient follow-up with neurology as well as infectious disease. Patient will continue a 5-week course of antibiotics. Total time taken is greater than 35 minutes. Hospital course This is a 39-year-old female who was recently admitted with infected stage III pressure ulcer of the right buttock with cultures growing MRSA with underlying osteomyelitis per CT and is status post surgical debridement on September 18, 2024. Culture showing Proteus Mirabella's with ESBL as well as Enterococcus and infectious disease following maintained on IV Invanz along with vancomycin. Patient also with a urinary tract infection and culture showing Yumiko and had been on Vfend and will not require any additional antifungal on discharge. Patient was evaluated and reevaluated by neurology as patient had altered mental status with seizure-like activity with a known history of seizure and adjustments to medications being made. Patient is on Vimpat and will continue Dilantin. Recommend close outpatient follow-up with neurologist as well as primary care provider and infectious disease outpatient. Patient has been cleared by consultations [facility] and has been accepted and received insurance authorization. Please refer to other consultation notes for further HPI. Currently no reports of chest pain, shortness of breath, or palpitations. Patient is afebrile. No reports of nausea or vomiting and patient is tolerating diet. Recommend dysphagia 3 chopped diet and aspiration precautions with supervision with meals and head of the bed elevated 30 to 45 degrees at all times. Patient will be going to [facility] today. High risk for readmissions given significant comorbidities. Physical exam: Gen: This is a 39-year-old female who is awake, alert and oriented x 2, baseline, thin build, elderly appearing HEENT: Head is atraumatic, normocephalic. Pupils equal, round. Sclerae is anicteric. NECK: Supple. No JVD. No lymphadenopathy. No thyromegaly. LUNGS: Diminished breath sounds bilaterally otherwise clear to auscultation. No wheezes or rhonchi. No intercostal retractions. HEART: S1, S2 are muffled ABDOMEN: Soft. Thin. Bowel sounds are present. No masses. No tenderness. EXTREMITIES: No pedal edema. No calf tenderness. NEUROLOGICAL: Patient is awake, alert and oriented x2. Cranial nerves 2 through 12 are grossly intact. Diffusely weak Please refer to medication reconciliation sheet for a list of medications. The impression and plan of care has been dictated by Sera Cottrell, Nurse Practitioner as directed. Dr. Brody MD I have performed a history and examination and MDM of this patient, discussed the same with the dictator, and agree with the dictator's assessment and plan as written ,documented as a scribe. Based on total visit time, I have performed more than 50% of the visit. Patient Condition at Discharge: Fair Plan - Discharge Summary Discharge Rx Participant: No New Discharge Prescriptions: New Ertapenem [INVanz] 1 gm IVPB DAILY@1200 35 Days #35 each Melatonin 6 mg PO HS PRN tab PRN Reason: Insomnia Collagenase [Santyl Ointment] 1 applic TOPICAL DAILY each QUEtiapine [SEROquel] 12.5 mg PO HS PRN tab PRN Reason: Agitation Lacosamide [Vimpat] 100 mg PO BID #12 tablet Heparin Sodium,Porcine (1 ml) [Heparin Sodium] 5,000 unit SQ Q8HR each Vancomycin 500 mg IVPB Q12H 35 Days #70 each Continue Fludrocortisone [Florinef] 0.1 mg PO BID Pyridoxine [Vitamin B-6] 50 mg PO DAILY Famotidine 40 mg PO HS Venlafaxine HCl [Effexor] 75 mg PO TID Lactulose 10 gm PO TID PRN PRN Reason: Constipation busPIRone HCl [Buspar] 5 mg PO TID allopurinoL [Zyloprim] 100 mg PO DAILY HYDROcodone/APAP 7.5-325MG [Delafield 7.5-325] 1 tab PO Q6H PRN #6 tab PRN Reason: Pain Thiamine [Vitamin B-1] 100 mg PO DAILY Phenytoin Sodium Extended [Dilantin] 100 mg PO TID Multivit-Min/Iron/Folic/Lutein [Centrum Silver Women Tablet] 1 tab PO DAILY Gabapentin 1,200 mg PO TID Baclofen [Lioresal] 20 mg PO TID Discontinued QUEtiapine FUMARATE 50 mg PO HS Oxybutynin Chloride [oxyBUTYnin chloride ER] 10 mg PO DAILY Topiramate [Topamax] 50 mg PO TID Sodium Bicarbonate Tab 650 mg PO BID Cranberry/Vitamin C 60mg/250mg 1 tab PO DAILY Zolpidem Tartrate [Ambien Cr] 12.5 mg PO HS Fluconazole [Diflucan] 150 mg PO DIRECTED Discharge Medication List Fludrocortisone [Florinef] 0.1 mg PO BID 07/19/21 [History] Famotidine 40 mg PO HS 01/05/24 [History] Pyridoxine [Vitamin B-6] 50 mg PO DAILY 01/05/24 [History] Thiamine [Vitamin B-1] 100 mg PO DAILY 01/05/24 [History] Lactulose 10 gm PO TID PRN 08/20/24 [History] Multivit-Min/Iron/Folic/Lutein [Centrum Silver Women Tablet] 1 tab PO DAILY 08/20/24 [History] Phenytoin Sodium Extended [Dilantin] 100 mg PO TID 08/20/24 [History] Venlafaxine HCl [Effexor] 75 mg PO TID 08/20/24 [History] allopurinoL [Zyloprim] 100 mg PO DAILY 08/20/24 [History] busPIRone HCl [Buspar] 5 mg PO TID 08/20/24 [History] Baclofen [Lioresal] 20 mg PO TID 09/09/24 [History] Gabapentin 1,200 mg PO TID 09/09/24 [History] Collagenase [Santyl Ointment] 1 applic TOPICAL DAILY each 09/25/24 [Rx] Ertapenem [INVanz] 1 gm IVPB DAILY@1200 35 Days #35 each 09/25/24 [Rx] HYDROcodone/APAP 7.5-325MG [[place]af[place] 7.5-325] 1 tab PO Q6H PRN #6 tab 09/25/24 [Rx] Heparin Sodium,Porcine (1 ml) [Heparin Sodium] 5,000 unit SQ Q8HR each 09/25/24 [Rx] Lacosamide [Vimpat] 100 mg PO BID #12 tablet 09/25/24 [Rx] Melatonin 6 mg PO HS PRN tab 09/25/24 [Rx] QUEtiapine [SEROquel] 12.5 mg PO HS PRN tab 09/25/24 [Rx] Vancomycin 500 mg IVPB Q12H 35 Days #70 each 09/25/24 [Rx] Follow up Appointment(s)/Referral(s): Kyler Whalen MD [Primary Care Provider] - 1-2 days Chika Xavier MD [STAFF PHYSICIAN] - 1 Week Ambulatory/Diagnostic Orders: Basic Metabolic Panel [LAB.AMB] Location: None Selected C Reactive Protein [LAB.AMB] Location: None Selected Complete Blood Count w/diff [LAB.AMB] Location: None Selected Erythrocyte Sedimentation Rate [LAB.AMB] Location: None Selected Activity/Diet/Wound Care/Special Instructions: Patient is going to [facility] Activity as tolerated Continue with IV antibiotics in the form of vancomycin with pharmacy to dose as well as IV Invanz for 5 weeks per ID recommendations Continue with local wound care by applying Santyl to the sacral wound followed by moist dressing and change daily or if becoming soiled Frequent offloading with position changes every 2 hours and recommend specialty bed Continue with aspiration precautions and head of the bed elevated 30 to 45 degrees at all times Patient is on a dysphagia chopped diet and strongly recommend aspiration precautions Follow-up with neurology outpatient Follow-up with primary care provider on discharge Continue Ensure enliv supplements 3 times daily with meals Follow-up with infectious disease in the outpatient setting in 1 to 2 weeks Discharge Disposition: TRANSFER TO SNF/ECF
--- NOTE | 2024-09-25 14:14 | P.PN ---
Subjective Progress Note Date: 09/25/24 I am following-up with patient and feels she is doing well and is improving. Objective - Vital Signs Vital signs: Vital Signs Temp 98.1 F 09/25/24 07:16 Pulse 94 09/25/24 07:16 Resp 16 09/25/24 07:16 BP 113/82 09/25/24 07:16 Pulse Ox 100 09/25/24 07:16 FiO2 Intake & Output 09/24/24 09/25/24 09/25/24 18:59 06:59 18:59 Output Total 2400 750 700 Balance -2400 -750 -700 Weight 36 kg 44.5 kg Output: Urine 2400 750 700 Other: Voiding Method Ileal Conduit (Right) Ileal Conduit (Right) Ileal Conduit (Right) # Bowel Movements 1 - Exam General: Lying in bed and is not in acute distress. Neurology: The patient is more awake today and responsive. She is oriented to self, place and time. She following simple commands. No facial weakness. Motor: Limited but was able to briefly raise uppers above gravity. - Labs CBC & Chem 7: 09/25/24 04:53 09/24/24 05:38 Labs: Abnormal Lab Results - Last 24 Hours (Table) 09/25/24 Range/Units 04:53 RBC 3.10 L (4.10-5.20) X 10*6/uL Hgb 9.4 L (12.0-15.0) g/dL Hct 30.3 L (37.2-46.3) % MCV 97.7 H (80.0-97.0) FL MCHC 31.0 L (32.0-37.0) g/dL Microbiology - Last 24 Hours (Table) 09/21/24 13:13 Blood Culture - Preliminary Blood Assessment and Plan Assessment: This is a 39-year-old woman with history of epilepsy, Warnicke encephalopathy, recurrent urinary tract infection who was transferred from [facility] for escalation of care of her urinary tract infection since she failed her outpatient treatment and needed IV antibiotic. Patient was in our facility a few weeks ago and had extensive neurologic workup and had CSF study which was unremarkable for any underlying infection as well as an EEG which was normal. Altered mental status seems due to septic encephalopathy from her urosepsis--mentation improving. Repeat EEG is negative for seizure or discharges. Acute urinary tract infection History of epilepsy on Dilantin History of Wernicke encephalopathy History of Mnire's disease History of Raynaud's disease History of recent COVID-19 infection History of chronic indwelling suprapubic catheter Wheelchair-bound History of recurrent urinary tract infection History of GERD History of anxiety History of depression Plan: Patient will be continued on phenytoin 100 mg, 3 times daily. It seems per our last note her outpatient neurologist Dr. Jo has stopped Topamax and placed her on Dilantin. Topamax can decrease appetite and make weight loss further worse. Patient is off Topamax. Patient had episodes of unresponsiveness couple nights ago. Patient started on Vimpat 100 mg twice daily per Dr. Lindo. Check Dilantin level in the morning. Last Dilantin level 12.2 on 09/19/2024. Patient also has probable metabolic encephalopathy, related to infectious source. Patient is being treated for UTI, and also has sacral wounds concerning for osteomyelitis. Patient on vancomycin and Eraxis. ID following. Patient is status post surgical debridement of the wound on 09/18/2024 Stat EEG was ordered by critical care team. It was abnormal EEG because of presence of background disorganization and slowing, suggestive of moderate to severe encephalopathy. There were presence of intermittent high amplitude sharp appearing waves, which have mostly triphasic quality, although some may have sharp wave quality as well. No electrographic seizure was recorded. Clinical correlation and follow-up is recommended, as clinically indicated. Patient is exhibiting some repetitive mouth and eye movements. Repeat EEG on 09/22/2024 1 hour study: Is abnormal. The background slowing is suggestive of moderate encephalopathy. There is no focal slowing, epileptiform discharge or seizure. There is sharply contoured activity over the left temporal which can increase risk of cortical irritability. Seizure precautions seizure pads Recommend the patient to follow-up with her outpatient neurologist within 3 weeks Will defer the rest of the medical management to the primary team. Patient has hypokalemia 1.9, now improved 3.6. Upon discharge, recommend the patient to follow-up with neurologist as outpatient within 2 weeks. Otherwise no further neurological work-up. Will sign off. Please reconsult if needed. Time with Patient: Less than 30
[2024-09-25 14:17] VITALS: BP 103/70; PULSE 98; TEMP 98.2
--- NOTE | 2024-09-25 16:02 | P.PN ---
Subjective Progress Note Date: 09/24/24 Principal diagnosis: Reason for follow-up is UTI and sacral pressure ulcer Patient is a 39-year-old female with multiple comorbidities including fibromyalgia reflux pneumonia seizure disorder patient also have a urostomy and recent multiple admission to the hospital for a UTI patient has been transferred to [facility] from [facility] where patient apparently has been diagnosed with a UTI failing outpatient treatment. Patient is status post Port-A-Cath placement and debridement of the sacral wound by general surgery on 09/18/2024. On today's evaluation that is 09/24/2024,the patient denies any fever or any chills, patient is breathing comfortably on room air, the patient denies chest pain shortness of breath and no significant cough, patient denies abdominal pain, no nausea vomiting or diarrhea. Patient would close 5.45, creatinine 0.60 culture from the sacral wound growing ESBL Proteus and Enterobacter Objective - Vital Signs Vital signs: Vital Signs Temp 97.9 F 09/24/24 07:21 Pulse 89 09/24/24 07:21 Resp 15 09/24/24 07:21 BP 100/69 09/24/24 07:21 Pulse Ox 95 09/24/24 07:21 FiO2 Intake & Output 09/23/24 09/24/24 09/24/24 18:59 06:59 18:59 Intake Total 470 1500 Output Total 1060 2650 Balance -590 -1150 Weight 35.5 kg Intake: IV 250 Cefepime 2 gm In Sodium 100 Chloride 0.9% 100 ml @ 25 mls/hr IVPB Q8HR JACQUELIN Rx# :[id number] Sodium Chloride 0.9% 1, 150 000 ml @ 75 mls/hr IV . [id number] Rx#:[id number] Oral 1500 Tube Feeding 160 Other 60 Output: Urine 1060 2650 Other: Voiding Method Ileal Conduit (Right) Ileal Conduit (Right) Ileal Conduit (Right) # Bowel Movements 0 - Exam GENERAL DESCRIPTION: Middle-age female lying in bed in no distress RESPIRATORY SYSTEM: Unlabored breathing , decreased breath sounds at bases HEART: S1 S2 regular rate and rhythm , ABDOMEN: Soft , no tenderness EXTREMITIES: No edema feet - Labs CBC & Chem 7: 09/25/24 04:53 09/24/24 05:38 Labs: Abnormal Lab Results - Last 24 Hours (Table) 09/23/24 09/24/24 09/24/24 Range/Units 23:51 05:38 05:38 RBC 3.25 L (4.10-5.20) 10*6/uL Hgb 10.0 L (12.0-15.0) g/dL Hct 31.1 L (37.2-46.3) % Carbon Dioxide 32 H (22-30) mmol/L POC Glucose (mg/dL) 146 H (70-110) mg/dL Microbiology - Last 24 Hours (Table) 09/20/24 15:17 Blood Culture - Preliminary Blood 09/21/24 13:13 Blood Culture - Preliminary Blood 09/21/24 14:00 Urine Culture - Final Urine,Voided Achromobacter xylos/denitrif 09/21/24 16:20 Gram Stain - Final Buttock Wound Culture - Final Enterobacter aerogenes Proteus mirabilis ESBL MDRO Assessment and Plan (1) History of ESBL E. coli infection Status: Acute Code(s): Z86.19 - PERSONAL HISTORY OF OTHER INFECTIOUS AND PARASITIC DISEASES SNOMED Code(s): 306217942 (2) UTI (urinary tract infection) Status: Acute Code(s): N39.0 - URINARY TRACT INFECTION, SITE NOT SPECIFIED SNOMED Code(s): 62518405 (3) Stage III pressure ulcer of sacral region Status: Acute Code(s): L89.153 - PRESSURE ULCER OF SACRAL REGION, STAGE 3 SNOMED Code(s): 60167028544549 (4) MRSA (methicillin resistant staph aureus) culture positive Status: Acute Code(s): Z22.322 - CARRIER OR SUSPECTED CARRIER OF METHICILLIN RESIS STAPH SNOMED Code(s): 833602005 Plan: 1patient presented to hospital with mental status changes did have low-grade fever elevated white count and a positive UA concerning for possible urinary source in this patient who did have a urostomy last admission CT did shows evidence of right-sided hydronephrosis could be the etiology for his recurrent infection 2-urine culture has been requested with initial culture currently growing Yumiko repeat is currently pending 3-local wound care to the sacral wound with santyl followed by moist dressing keep the area of the pressure 4-patient sacral wound cultures are growing MRSA and Yumiko glabrata, CT has been suspicious for osteomyelitis patient subsequent culture done in the ICU growing gram-negative with ID sensitivities pending 5patient is status post Port-A-Cath placement by surgery debridement of the wound on 09/18/2024, 6patient did have a new fever with both urine and the sacral wound culture grew ESBL Proteus as well as Enterobacter cefepime discontinued patient started on Invanz continue the vancomycin and Vfend at this point Dictation was produced using [employer] dictation software. please excuse any grammatical, word or spelling errors. Time with Patient: Less than 30
--- NOTE | 2024-09-25 16:04 | P.PN ---
Subjective Progress Note Date: 09/25/24 Principal diagnosis: Reason for follow-up is UTI and sacral pressure ulcer Patient is a 39-year-old female with multiple comorbidities including fibromyalgia reflux pneumonia seizure disorder patient also have a urostomy and recent multiple admission to the hospital for a UTI patient has been transferred to [facility] from [facility] where patient apparently has been diagnosed with a UTI failing outpatient treatment. Patient is status post Port-A-Cath placement and debridement of the sacral wound by general surgery on 09/18/2024. On today's evaluation that is 09/25/2024,the patient remains to be afebrile, patient is on room air not requiring supplemental oxygen and denies any shortness of breath no chest pain or cough.Patient denies having any nausea or vomiting, no abdominal pain and no diarrhea has been reported. The patient white count is 4.55 Objective - Vital Signs Vital signs: Vital Signs Temp 98.1 F 09/25/24 07:16 Pulse 94 09/25/24 07:16 Resp 16 09/25/24 07:16 BP 113/82 09/25/24 07:16 Pulse Ox 100 09/25/24 07:16 FiO2 Intake & Output 09/24/24 09/25/24 09/25/24 18:59 06:59 18:59 Output Total 2400 750 700 Balance -2400 -750 -700 Weight 36 kg 44.5 kg Output: Urine 2400 750 700 Other: Voiding Method Ileal Conduit (Right) Ileal Conduit (Right) Ileal Conduit (Right) # Bowel Movements 1 - Exam GENERAL DESCRIPTION: Middle-age female lying in bed in no distress RESPIRATORY SYSTEM: Unlabored breathing , decreased breath sounds at bases HEART: S1 S2 regular rate and rhythm , ABDOMEN: Soft , no tenderness Stage IV sacral wound base looks clean significant slough tissue surrounding redness of foul-smelling drainage EXTREMITIES: No edema feet - Labs CBC & Chem 7: 09/25/24 04:53 09/24/24 05:38 Labs: Abnormal Lab Results - Last 24 Hours (Table) 09/25/24 Range/Units 04:53 RBC 3.10 L (4.10-5.20) X 10*6/uL Hgb 9.4 L (12.0-15.0) g/dL Hct 30.3 L (37.2-46.3) % MCV 97.7 H (80.0-97.0) FL MCHC 31.0 L (32.0-37.0) g/dL Microbiology - Last 24 Hours (Table) 09/21/24 13:13 Blood Culture - Preliminary Blood Assessment and Plan (1) History of ESBL E. coli infection Status: Acute Code(s): Z86.19 - PERSONAL HISTORY OF OTHER INFECTIOUS AND PARASITIC DISEASES SNOMED Code(s): 218077348 (2) UTI (urinary tract infection) Status: Acute Code(s): N39.0 - URINARY TRACT INFECTION, SITE NOT SPECIFIED SNOMED Code(s): 70689992 (3) Stage III pressure ulcer of sacral region Status: Acute Code(s): L89.153 - PRESSURE ULCER OF SACRAL REGION, STAGE 3 SNOMED Code(s): 12606845227760 (4) MRSA (methicillin resistant staph aureus) culture positive Status: Acute Code(s): Z22.322 - CARRIER OR SUSPECTED CARRIER OF METHICILLIN RESIS STAPH SNOMED Code(s): 548848840 Plan: 1patient presented to hospital with mental status changes did have low-grade fever elevated white count and a positive UA concerning for possible urinary source in this patient who did have a urostomy last admission CT did shows evidence of right-sided hydronephrosis could be the etiology for his recurrent infection 2-urine culture has been requested with initial culture currently growing Yumiko repeat is currently pending 3-local wound care to the sacral wound with santyl followed by moist dressing keep the area of the pressure 4-patient sacral wound cultures are growing MRSA and Yumiko glabrata, CT has been suspicious for osteomyelitis patient subsequent culture done in the ICU growing gram-negative with ID sensitivities pending 5patient is status post Port-A-Cath placement by surgery debridement of the wound on 09/18/2024, 6patient repeat sacral wound culture grew ESBL Proteus as well as Enterobacter cefepime 7plan for 5-week course of Invanz 1 g daily and vancomycin pharmacy to dose this was discussed with FIELD OBSERVER for admitting team working on discharge Dictation was produced using [employer] software. please excuse any grammatical, word or spelling errors.
[2024-09-26] MEDS ORDERED: VANCOMYCIN TROUGH DUE 1 EACH MISC MISCELLANE ONE (03:00)
--- NOTE | 2024-09-26 10:12 | CDI ---
Documentation Clarification Form Date: 09/26/24 From: Sophie Moreno Admit Date: 09/09/2024 07:09:00 PM Patient Name: Kamala Perla Visit Number: [id number] Discharge Date: 09/25/2024 03:04:00 PM ATTENTION: The Clinical Documentation Specialists (CDI) and [facility] Coding Staff appreciate your assistance in clarifying documentation. Please respond to the clarification below the line at the bottom and electronically sign. The CDI & [facility] Coding staff will review the response and follow-up if needed. Please note: Queries are made part of the Legal Health Record. If you have any questions, please contact the author of this message via ITS. Doctor/Provider: Monty Armstrong, A debridement is documented on 09/18/24. Unfortunately, some required elements have not been documented. Additional clarification regarding the procedure is requested. History/Risk Factors: Stage III sacral ulcer w osteomyelitis, sepsis, toxic metabolic encephalopathy, moderate protein-calorie malnutrition w BMI <19, epilepsy Clinical Indicators: Stage III with slough tissue of sacral region. Treatment: Debridement o sacral ulcer Please clarify the procedure performed: [ X] Excisional debridement (the removal of necrotic, devitalized tissue or slough by means of cutting away of tissue) Instrument: curette____ Nature of the tissue removed necrotic__ Appearance of the wound clean with necrotic slough___ Depth of debridement 2 cm__ [ ] Non-excisional debridement (the removal of necrotic, devitalized tissue or slough by means of flushing, brushing, or washing. (Irrigation) Instrument: Nature of the tissue removed Appearance of the wound Depth of debridement [ ] Other; please specify Dr. Five elements required for accurate and compliant documentation of a debridement: -Technique used (e.g., excisional, excised, cutting, brushing, jet lavage etc.) -Instrument(s) used (e.g., scalpel, curette, etc.) -Nature of the tissue removed (e.g., necrotic, devitalized tissues, non-viable tissue, etc.) -Appearance and size of the wound (e.g., down to fresh bleeding tissue, 7cm x 10cm, etc.) -Depth of the debridement* (e.g., skin, subcutaneous tissue, fascia, muscle, bone, etc.) MTDD
--- NOTE | 2024-09-26 14:23 | CDI ---
Documentation Clarification Form Date: 09/26/2024 01:57:11 PM From: Martha An RN, CCDS Email: [email or web address] Admit Date: 09/09/2024 07:09:00 PM Patient Name: Kamala Perla Visit Number: [id number] Discharge Date: 09/25/2024 03:04:00 PM ATTENTION: The Clinical Documentation Specialists (CDI) and [facility] Coding Staff appreciate your assistance in clarifying documentation. Please respond to the clarification below the line at the bottom and electronically sign. The CDI & [facility] Coding staff will review the response and follow-up if needed. Please note: Queries are made part of the Legal Health Record. If you have any questions, please contact the author of this message via ITS. Doctor Radha Dailey Conflicting documentation has been found in the medical record. As attending physician, please provide clarification. 09/17 IM: "Sepsis, present on admission secondary to stage III pressure ulcer." 09/20 Pulmonary Consult: "Stage IV coccyx wound, post debridement." 09/24-09/25 Nursing Note: "Coccyx pressure injury, present on admission, stage III. History/Risk Factors: Warnicke's Korsakoff syndrome and seizures/epilepsy, history of suprapubic catheter which is not present now, neurofibromatosis, Raynaud's disease, legally blind and hearing difficulty, clubfoot and GERD. Transfer from [place] for UTI. Clinical Indicators: 09/10 ID: "Skin: Stage IV sacral pressure ulcer with some slough tissue no surrounding redness. Stage III pressure ulcer of sacral region." 09/11 Wound: "Stage III pressure ulcer over the sacrum." 09/11 Nursing note: "Stage III pressure injury POA to coccyx." 09/17 IM: "sepsis, present on admission secondary to stage III pressure ulcer." 09/19-09/23 Nursing Note: "Coccyx pressure injury, present on admission, stage IV." 09/24-09/25 Nursing Note: "Coccyx pressure injury, present on admission, stage III." 09/25 Pulmonary: "She also has a stage IV pressure ulcer in the coccyx that was debrided recently by general surgery." Treatment: s/p debridement of sacral wound; Santyl cream, wet to dry kerlix Please clarify which diagnosis is most appropriate: [ ] Stage 3 pressure injury to coccyx present on admission [ x ] Stage 4 pressure injury to coccyx present on admission [ ] Other (please specify) [ ] Unable to determine MTDD
== END 2024-09-25 15:04 | DRG 853 ==
LOC: EC 18:44 → 4SSUR 19:09 → 1SOBS 22:20 → 4SSUR 09-11 17:49 → 3SCARD 09-20 06:50 → 2SICU 09-20 07:42 → 4SSUR 09-23 15:18
PROVIDERS: ADMIT Hospitalist; ATTEND Hospitalist
PROC: 02HV33Z Insertion of Infusion Device into Superior Vena Cava, Percutaneous Approach (ICD-10-PCS; principal; 2024-09-18 07:30)
PROC: 0JB70ZZ Excision of Back Subcutaneous Tissue and Fascia, Open Approach (ICD-10-PCS; principal; 2024-09-18 07:30)
PROC: 0JH60WZ Insertion of Totally Implantable Vascular Access Device into Chest Subcutaneous Tissue and Fascia, Open Approach (ICD-10-PCS; principal; 2024-09-18 07:30)
PROC: 0D9670Z Drainage of Stomach with Drainage Device, Via Natural or Artificial Opening (ICD-10-PCS; 2024-09-20)
PROC: 3E0G76Z Introduction of Nutritional Substance into Upper GI, Via Natural or Artificial Opening (ICD-10-PCS; 2024-09-20)
DX: A41.9 Sepsis, unspecified organism (principal); G92.8 Other toxic encephalopathy; L89.154 Pressure ulcer of sacral region, stage 4; E44.0 Moderate protein-calorie malnutrition; R64 Cachexia; L89.312 Pressure ulcer of right buttock, stage 2; B37.49 Other urogenital candidiasis; E86.0 Dehydration; F10.21 Alcohol dependence, in remission; G40.909 Epilepsy, unspecified, not intractable, without status epilepticus; G31.2 Degeneration of nervous system due to alcohol; F32.A Depression, unspecified; M46.28 Osteomyelitis of vertebra, sacral and sacrococcygeal region; E87.0 Hyperosmolality and hypernatremia; Z16.24 Resistance to multiple antibiotics; Z68.1 Body mass index [BMI] 19.9 or less, adult; Q85.00 Neurofibromatosis, unspecified; R65.20 Severe sepsis without septic shock; L89.891 Pressure ulcer of other site, stage 1; B95.62 Methicillin resistant Staphylococcus aureus infection as the cause of diseases classified elsewhere; E87.6 Hypokalemia; E83.42 Hypomagnesemia; B96.4 Proteus (mirabilis) (morganii) as the cause of diseases classified elsewhere; M79.7 Fibromyalgia; K21.9 Gastro-esophageal reflux disease without esophagitis; I73.00 Raynaud's syndrome without gangrene; G89.29 Other chronic pain; M54.2 Cervicalgia; M54.9 Dorsalgia, unspecified; H93.19 Tinnitus, unspecified ear; F41.9 Anxiety disorder, unspecified; N99.521 Infection of incontinent external stoma of urinary tract; K59.00 Constipation, unspecified; H54.8 Legal blindness, as defined in USA; K58.9 Irritable bowel syndrome, unspecified; M62.81 Muscle weakness (generalized); Q66.89 Other specified congenital deformities of feet; H91.90 Unspecified hearing loss, unspecified ear; Z53.8 Procedure and treatment not carried out for other reasons; Z79.899 Other long term (current) drug therapy; Z56.0 Unemployment, unspecified; Z87.440 Personal history of urinary (tract) infections; Z99.3 Dependence on wheelchair; Z74.01 Bed confinement status; Z86.16 Personal history of COVID-19; Z86.19 Personal history of other infectious and parasitic diseases; Z98.84 Bariatric surgery status; Z87.820 Personal history of traumatic brain injury; Z88.0 Allergy status to penicillin; Z88.6 Allergy status to analgesic agent; Z88.8 Allergy status to other drugs, medicaments and biological substances
CPT/HCPCS: 36415; 70450; 71045; 72192; 77001; 80048; 80053; 80185; 80186; 80202; 81001; 82140; 82565; 83605; 83735; 83880; 84100; 84132; 84484; 85025; 85027; 85610; 85652; 85730; 86140; 87040; 87070; 87075; 87077; 87086; 87186; 87205; 93005; 95816; 95819; 96374; 99285

== ENCOUNTER 2024-12-23 05:36 | Day surgery (SDC) | payer OTHER ==
--- NOTE | 2024-12-16 19:11 | P.HPIHPCON ---
History of Present Illness H&P Date: 12/16/24 Chief Complaint: Left ureteral stone This is a 39-year-old female who with history of diverting urostomy secondary to neurogenic bladder. Patient has history of left-sided UPJ stone, she is status post left nephrostomy tube placement at [facility]. Option of left- sided PCNL was discussed with her in details. She is aware of the risk which include but not limited to bleeding, infection, injury to nearby organs. Risk of anesthesia was also discussed. Given her comorbidities she is at a higher risk of, medical complication which was discussed with her. She understood all the risk and agreed to proceed Consent for Procedure: I have explained the operation/procedure to the patient, including the risks, benefits, side effects, alternative therapies (including not receiving the proposed treatment or service), the likelihood of the patient achieving his/her goals, and potential recuperation problems for the procedure/sedation/analgesia, as well as any blood products, if indicated. I also explained to the patient the risks, benefits and side effects of the alternatives, as well as the risks related to not receiving the proposed procedure, care, treatment, or services. Past Medical History Past Medical History: Fibromyalgia, GERD/Reflux, Pneumonia, Seizure Disorder Additional Past Medical History / Comment(s): has seizures on a daily basis one or more a day, cHRONIC NECK/BACK PAIN, N/T FINGERS AND TOES, RAYNAUDS SYN. MENIERE'S,tinnitus, past uterine prolpase(sx) IBS, MUSCLE WEAKNESS, USES WALKER OR W/C History of Any Multi-Drug Resistant Organisms: ESBL, MRSA Date of last positivie culture/infection: 01/06/24 - ESBL; 08/18/22 - MRSA MDRO Source:: URINE - ESBL; Urine - MRSA Past Surgical History: Bariatric Surgery, Cholecystectomy, Hysterectomy Additional Past Surgical History / Comment(s): EYE SX (MUSCLES), radha en y 2012 Past Anesthesia/Blood Transfusion Reactions: No Reported Reaction Additional Past Anesthesia/Blood Transfusion Reaction / Comment(s): claust erphobia Past Psychological History: Anxiety, Depression Smoking Status: Unknown if ever smoked Past Alcohol Use History: Unable to Obtain Past Drug Use History: Unable to Obtain, Marijuana - Past Family History Mother Family Medical History: Cancer Additional Family Medical History / Comment(s): TONGUE Father Family Medical History: Hypertension Medications and Allergies Home Medications Medication Instructions Recorded Confirmed Type RX: Fludrocortisone [Florinef] 0.1 mg PO BID 07/19/21 11/11/24 History RX: Famotidine 40 mg PO HS 01/05/24 11/11/24 History RX: Pyridoxine [Vitamin B-6] 50 mg PO DAILY 01/05/24 11/11/24 History RX: Thiamine [Vitamin B-1] 100 mg PO DAILY 01/05/24 11/11/24 History RX: Lactulose 10 gm PO TID PRN 08/20/24 11/11/24 History RX: Multivit-Min/Iron/Folic/Lutein 1 tab PO DAILY 08/20/24 11/11/24 History [Centrum Silver Women Tablet] RX: Phenytoin Sodium Extended 100 mg PO TID 08/20/24 11/11/24 History [Dilantin] RX: Venlafaxine HCl [Effexor] 75 mg PO TID 08/20/24 11/11/24 History RX: allopurinoL [Zyloprim] 100 mg PO DAILY 08/20/24 11/11/24 History RX: busPIRone HCl [Buspar] 5 mg PO TID 08/20/24 11/11/24 History RX: Baclofen [Lioresal] 20 mg PO TID 09/09/24 11/11/24 History RX: Gabapentin 1,200 mg PO TID 09/09/24 11/11/24 History Lacosamide [Vimpat] 100 mg PO BID #12 tablet 09/25/24 11/11/24 Rx RX: HYDROcodone/APAP 7.5-325MG 1 tab PO Q6H PRN #6 tab 09/25/24 11/11/24 Rx [Merrill 7.5-325] RX: Melatonin 6 mg PO HS PRN tab 09/25/24 11/11/24 Rx Morphine Sulfate ER [Ms Contin] 15 mg PO Q12HR 11/11/24 11/11/24 History Oxybutynin ER [Ditropan XL] 10 mg PO DAILY 11/11/24 11/11/24 History QUEtiapine [SEROquel] 50 mg PO HS 11/11/24 11/11/24 History RX: Sodium Bicarbonate Tab 650 mg PO BID 11/11/24 11/11/24 History Allergies Allergy/AdvReac Type Severity Reaction Status Date / Time levetiracetam [From [facility]] Allergy Rash/Hives Verified 11/11/24 03:02 Penicillins Allergy "STOPPED Verified 11/11/24 03:02 BREATHING" NSAIDS (Non-Steroidal AdvReac "MAY CAUSE Verified 11/11/24 03:02 Anti-Inflamma ULCERS R/T BARIATRIC SX" Surgical - Exam - General no distress, no pain - Eyes normal ocular movement, no pale - ENT normal nares, normal mucosa - Respiratory normal expansion, normal respiratory effort - Abdomen Abdomen: soft, non tender, no distended - Psychiatric oriented to time Assessment and Plan Assessment: OR for left PCNL
--- NOTE | 2024-12-23 06:37 | XR ---
EXAMINATION TYPE: XR KUB DATE OF EXAM: 12/23/2024 6:15 AM CLINICAL INDICATION: Female, 39 years old with history of N20.1 ureteral stone, pain TECHNIQUE: 1 view of the abdomen. COMPARISON: CT abdomen and pelvis August 31, 2024. FINDINGS: There is new left-sided percutaneous nephrostomy tube. There is persistent large 2.0 cm lef t renal calculus at L2 level. Surgical sutures epigastric region are seen. Surgical sutures left lower quadrant redemonstrated. The re is right-sided ostomy. Osseous structures are intact. IMPRESSION: As above. [facility], , 12/23/2024 6:35 AM
[2024-12-23] MEDS: IV FLUID CONTINUATION 1,000 ML IV ONE ×2 (06:50→11:49)
[2024-12-23] MEDS: LACTATED RINGERS 1,000 ML IV SCH (06:56)
[2024-12-23] MEDS: ONDANSETRON 4 MG/2 ML VIAL IVP ONE (06:56)
[2024-12-23] MEDS: DEXAMETHASONE SOD PHOSPHATE 4 MG/ML 1 ML VIAL IV ONE (06:57)
[2024-12-23] MEDS: HYDROCORTISONE SUCCINATE 100 MG/2 ML VIAL IV STA (06:58)
[2024-12-23] MEDS ORDERED: MIDAZOLAM 2 MG/2 ML VIAL IV PRN (07:00)
[2024-12-23] MEDS: GENTAMICIN 120 MG in SODIUM CHLORIDE 0.9% 100 ML IVPB PRN (07:25)
[2024-12-23] MEDS ORDERED: GLYCOPYRROLATE 0.2 MG/ML 2 ML VIAL ONE (07:26)
[2024-12-23] MEDS ORDERED: NEOSTIGMINE 1 MG/ML 10 ML VIAL ONE (07:26)
[2024-12-23] MEDS ORDERED: MIDAZOLAM 2 MG/2 ML VIAL ONE (07:26)
[2024-12-23] MEDS ORDERED: fentaNYL (PF) 50 MCG/ML 2 ML AMP ONE (07:26)
[2024-12-23] MEDS ORDERED: LIDOCAINE 1% INJ 10MG/ML (20 ML MDV) ONE (07:26)
[2024-12-23] MEDS ORDERED: PROPOFOL 10 MG/ML 20 ML VIAL IV ONE (07:26)
[2024-12-23] MEDS ORDERED: ROCURONIUM 10 MG/ML (5 ML VIAL) IV ONE (07:26)
[2024-12-23] MEDS ORDERED: PHENYLEPHRINE-0.9% NACL SYG 1,000 MCG/10 ML SYRINGE ONE (07:26)
[2024-12-23] MEDS: IOHEXOL 350 MG/ML 100 ML in EMPTY BAG 1 BAG IRRIGATION ONE (07:59)
[2024-12-23] MEDS: CIPROFLOXACIN/DEXTROSE PMX 400 MG in DEXTROSE/WATER 1 200ML.BAG IVPB PRN (08:00)
--- NOTE | 2024-12-23 08:53 | FL ---
EXAMINATION TYPE: FL Perc Nephro Tube Change Intraoperative/procedural fluoroscopic services were pro vided. CLINICAL INDICATION:Female, 39 years old with history of PERCUTANEOUS NEPHRO; , [facility] FINDINGS: Fluoroscopic images demonstrating percutaneous nephrostomy tube placement. Appears to be the right si de. No radiographic evidence for complication. Total fluoroscopy time is 109.4 seconds. DAP: [id number] mGym2 Please see the operative/procedural note for further details. [facility], , 12/23/2024 8:51 AM
[2024-12-23] MEDS ORDERED: LACTULOSE 20 GM/30 ML CUP PO PRN (09:03)
[2024-12-23] MEDS ORDERED: MELATONIN 3 MG TABLET PO PRN (09:03)
[2024-12-23] MEDS ORDERED: ONDANSETRON 4 MG/2 ML VIAL IVP PRN (09:05)
[2024-12-23] MEDS ORDERED: MAG HYDROX/AL HYDROX/SIMETH 30 ML CUP PO PRN (09:05)
[2024-12-23] MEDS ORDERED: ACETAMINOPHEN TAB 325 MG TAB PO PRN (09:05)
--- NOTE | 2024-12-23 09:14 | P.OP ---
Date of Procedure: 12/23/24 Preoperative Diagnosis: Left renal stone Postoperative Diagnosis: Same Procedure(s) Performed: Left percutaneous nephrolithotomy >2.0 cm stone Implants: none Anesthesia: TYSHAWNA Surgeon: Tylor Miller Estimated Blood Loss (ml): 50 Pathology: other (Left renal stone) Condition: stable Disposition: PACU Indications for Procedure: This is a 39-year-old female who with history of diverting urostomy secondary to neurogenic bladder. Patient has history of left-sided UPJ stone, she is status post left nephrostomy tube placement at [facility]. Option of left- sided PCNL was discussed with her in details. She is aware of the risk which include but not limited to bleeding, infection, injury to nearby organs. Risk of anesthesia was also discussed. Given her comorbidities she is at a higher risk of, medical complication which was discussed with her. She understood all the risk and agreed to proceed Operative Findings: Large left-sided renal pelvic stone Description of Procedure: Patient brought the operating room, general anesthesia was induced. At this time the patient was placed in a prone position, all pressure points were padded. The left flank was prepped and draped in sterile fashion. Next a sensor wire was advanced through the nephrostomy tube and the nephrostomy tube was removed with a wire placed. The wire was manipulated all the way to the way down to the distal ureter. At this time the 810 dilators were advanced over the wire, a second stiff wire was advanced through the dilators and the dilators were removed with [address] Next a 30 Spanish NephroMax balloon was advanced over the wire and the tract was dilated under fluoroscopy. Next a 30 Spanish access sheath was passed over the balloon and the balloon was removed with the sheath in place. The rigid nephroscope was inserted through the access sheath and into the kidney, renoscopy was performed showed a large stone in the renal pelvis using the ultrasound lithotripter the stone was fragmented, stone fragments were removed using a grasper. Repeat renoscopy showed no sizable fragments or injury to the kidney. On fluoroscopy there was no radiopaque density seen. At this time I switched to the flexible cystoscope and all the calyces were evaluated, and the UPJ which showed no evidence of stones. The proximal ureter was evaluated which also showed no stone. Antegrade nephrostogram was performed showed contrast going down the ureter and no evidence of any filling defect or evidence of contrast extravasation. At this time a 12 Spanish nephrostomy tube was passed over the wire, antegrade nephrostogram was performed which confirmed that the nephrostomy tube is within the renal pelvis. There was no filling defect or contrast extravasation within the kidney. At this time the sheath was removed with a nephrostomy tube in place, the medial edge of the incision was closed using 2-0 Vicryl, the lateral edge of the incision was closed using 2-0 silk, the tube was secured to the p atient's skin. Patient was awakened from anesthesia. Patient tolerated procedure well was taken to recovery in stable condition
[2024-12-23] MEDS: HYDROmorphone 0.5 MG/0.5 ML SYRINGE IVP PRN ×2 (09:30→18:46)
[2024-12-23] MEDS: HYDROcodone/APAP 7.5-325MG 1 EACH TAB PO PRN (12:48)
[2024-12-23] MEDS: MIDODRINE 5 MG TAB PO SCH (12:59)
[2024-12-23] MEDS: FLUDROCORTISONE 0.1 MG TAB PO SCH (13:00)
[2024-12-23] MEDS: PHENYTOIN SODIUM EXTENDED 100 MG CAP PO SCH (17:19)
[2024-12-23] MEDS: VENLAFAXINE HCL 75 MG TAB PO SCH (17:20)
[2024-12-23] MEDS: DEXTROSE 5%-0.45% NACL 1,000 ML IV SCH (18:49)
[2024-12-23] MEDS: SCOPOLAMINE 1 MG/72 HR PATCH TRANSDERM ONE (22:21)
[2024-12-23] MEDS: HEPARIN SODIUM,PORCINE 5,000 UNIT/ML 1 ML VIAL SQ SCH (22:23)
[2024-12-23] MEDS: LACOSAMIDE 150 MG TABLET PO SCH (22:23)
[2024-12-23] MEDS: FAMOTIDINE 20 MG TAB PO SCH (22:23)
[2024-12-23] MEDS: CIPROFLOXACIN HCL 250 MG TAB PO SCH (22:24)
[2024-12-23] MEDS: ZOLPIDEM 5 MG TAB PO PRN (22:35)
[2024-12-24] MEDS: FERROUS SULFATE 325 MG TAB PO SCH (08:02)
[2024-12-24] MEDS: FOLIC ACID 1 MG TAB PO SCH (08:02)
[2024-12-24] MEDS: PANTOPRAZOLE 40 MG TABLET PO SCH (08:02)
[2024-12-24] MEDS: MULTIVITAMINS, THERA 1 EACH TAB PO SCH (08:02)
[2024-12-24] MEDS: THIAMINE 100 MG TAB PO SCH (08:03)
--- NOTE | 2024-12-24 08:46 | P.DS ---
Providers Expected date of discharge: 12/24/24 Attending physician: Tylor Miller MD Primary care physician: Kyler Marlee [facility] Course: On the day of admission, the patient underwent an uncomplicated left PCNL. The perioperative course was unremarkable. The patient remained afebrile with stable vital signs. On the first postoperative day, she denied pain and had no complaints. Both the left nephrostomy tube and urostomy were draining clear yellow urine. The abdomen was soft and non-tender. Procedures: Left percutaneous nephrolithotomy (PCNL) on December 23, 2024. Patient Condition at Discharge: Good Plan - Discharge Summary Discharge Rx Participant: Yes New Discharge Prescriptions: No Action Fludrocortisone [Florinef] 0.1 mg PO BID Pyridoxine [Vitamin B-6] 50 mg PO DAILY Famotidine 40 mg PO HS Venlafaxine HCl [Effexor] 75 mg PO TID Lactulose 10 gm PO TID PRN PRN Reason: Constipation busPIRone HCl [Buspar] 5 mg PO TID allopurinoL [Zyloprim] 100 mg PO DAILY Melatonin 6 mg PO HS PRN tab PRN Reason: Insomnia HYDROcodone/APAP 7.5-325MG [Chauncey 7.5-325] 1 tab PO Q6H PRN #6 tab PRN Reason: Pain Lacosamide [Vimpat] 150 mg PO BID Pantoprazole [Protonix] 40 mg PO DAILY Linezolid [Zyvox] 600 mg PO Q12H Ciprofloxacin HCl [Cipro] 500 mg PO Q12HR Midodrine HCl 2.5 mg PO TID Thiamine [Vitamin B-1] 100 mg PO DAILY Phenytoin Sodium Extended [Dilantin] 100 mg PO TID Multivit-Min/Iron/Folic/Lutein [Centrum Silver Women Tablet] 1 tab PO DAILY Zolpidem Tartrate [Ambien Cr] 12.5 mg PO HS PRN PRN Reason: Insomnia Ferrous Sulfate [Iron] 325 mg PO Q48H Folic Acid 1 mg PO DAILY Plecanatide [Trulance] 3 mg PO DAILY Discharge Medication List Fludrocortisone [Florinef] 0.1 mg PO BID 07/19/21 [History] Famotidine 40 mg PO HS 01/05/24 [History] Pyridoxine [Vitamin B-6] 50 mg PO DAILY 01/05/24 [History] Thiamine [Vitamin B-1] 100 mg PO DAILY 01/05/24 [History] Lactulose 10 gm PO TID PRN 08/20/24 [History] Multivit-Min/Iron/Folic/Lutein [Centrum Silver Women Tablet] 1 tab PO DAILY 08/20/24 [History] Phenytoin Sodium Extended [Dilantin] 100 mg PO TID 08/20/24 [History] Venlafaxine HCl [Effexor] 75 mg PO TID 08/20/24 [History] allopurinoL [Zyloprim] 100 mg PO DAILY 08/20/24 [History] busPIRone HCl [Buspar] 5 mg PO TID 08/20/24 [History] HYDROcodone/APAP 7.5-325MG [Chauncey 7.5-325] 1 tab PO Q6H PRN #6 tab 09/25/24 [Rx] Melatonin 6 mg PO HS PRN tab 09/25/24 [Rx] Ciprofloxacin HCl [Cipro] 500 mg PO Q12HR 12/18/24 [History] Ferrous Sulfate [Iron] 325 mg PO Q48H 12/18/24 [History] Folic Acid 1 mg PO DAILY 12/18/24 [History] Lacosamide [Vimpat] 150 mg PO BID 12/18/24 [History] Linezolid [Zyvox] 600 mg PO Q12H 12/18/24 [History] Pantoprazole [Protonix] 40 mg PO DAILY 12/18/24 [History] Plecanatide [Trulance] 3 mg PO DAILY 12/18/24 [History] Zolpidem Tartrate [Ambien Cr] 12.5 mg PO HS PRN 12/18/24 [History] Midodrine HCl 2.5 mg PO TID 12/23/24 [History] Follow up Appointment(s)/Referral(s): Tylor Miller MD [STAFF PHYSICIAN] - 1 Week Activity/Diet/Wound Care/Special Instructions: Discharge home with left nephrostomy tube. Follow-up with Dr. Miller in 1 week. Diet as tolerated. Resume home medications. Discharge Disposition: HOME SELF-CARE
[2024-12-24 09:38] VITALS: BP 115/89; PULSE 70; RESP 19; TEMP 98.4
[2024-12-24] MEDS: PLECANATIDE 3 MG PO SCH (10:03)
[2024-12-24] MEDS: PYRIDOXINE 50 MG TAB PO SCH (10:03)
== END 2024-12-24 13:04 | disposition home or self-care (01) ==
LOC: OR 05:36 → 4SSUR 08:56 → OR 12-24 13:04
PROVIDERS: ATTEND Urology
DX: N20.2 Calculus of kidney with calculus of ureter (principal); N31.9 Neuromuscular dysfunction of bladder, unspecified; I73.00 Raynaud's syndrome without gangrene; M79.7 Fibromyalgia; K58.9 Irritable bowel syndrome, unspecified; F41.9 Anxiety disorder, unspecified; F32.A Depression, unspecified; G40.909 Epilepsy, unspecified, not intractable, without status epilepticus; Z90.710 Acquired absence of both cervix and uterus; Z90.49 Acquired absence of other specified parts of digestive tract; Z82.49 Family history of ischemic heart disease and other diseases of the circulatory system; Z88.0 Allergy status to penicillin; Z88.6 Allergy status to analgesic agent; Z79.899 Other long term (current) drug therapy
CPT/HCPCS: 82365; 50435; 74018; 50080; C1769; C1894; C1729; J1644 ×2; J1100; J1720; J2405; J0744; J1580; Q9967; J1171